=== PATIENT | male | born 1945 | race Caucasian/White ===

== ENCOUNTER → 2018-01-11 18:02 | Outpatient (CLI) | payer MEDICARE, OTHER, SELFPAY ==
--- NOTE | 2018-01-11 18:08 | DI.RAD.S_ITS ---
PROCEDURE: XR WRIST RT MIN 3V INDICATIONS: R wrist pain TECHNIQUE: 4 views of the wrist were acquired. COMPARISON: [facility], , XR HAND RT MIN 3V, 01/11/2018, 17:54. FINDINGS: Bones: No fractures or dislocations. There is mild degeneration of the 1st carpometacarpal joint. No suspicious bony lesions. Scaphoid view: The scaphoid appears intact. Soft tissues: No suspicious soft tissue calcifications. IMPRESSION: 1. No fracture or subluxation. 2. Mild degeneration of the 1st carpometacarpal joint. Dictated by: Justin Wilson M.D. on 01/11/2018 at 19:23 Approved by: Justin Wilson M.D. on 01/11/2018 at 19:33
--- NOTE | 2018-01-11 18:08 | DI.RAD.S_ITS ---
PROCEDURE: XR HAND RT MIN 3V INDICATIONS: r wrist pain TECHNIQUE: 3 views of the hand(s) acquired. COMPARISON: [facility], CR, XR WRIST RT MIN 3V, 01/11/2018, 17:54. FINDINGS: Bones: No fractures or dislocations. There is mild degeneration at the 1st carpometacarpal joint. Carpal bones are normally aligned. No suspicious bony lesions. Soft tissues: No suspicious soft tissue calcifications. IMPRESSION: 1. No fracture or subluxation. 2. Mild degeneration at the 1st carpometacarpal joint. Dictated by: Justin Wilson M.D. on 01/11/2018 at 19:33 Approved by: Justin Wilson M.D. on 01/11/2018 at 19:34
== END ==
PROVIDERS: Family Provider Family Medicine; PCP Family Medicine; Visit Provider Physician Assistant
DX: M25.531 Pain in right wrist (principal); M18.11 Unilateral primary osteoarthritis of first carpometacarpal joint, right hand
CPT/HCPCS: 73110; 73130

== ENCOUNTER → 2018-01-26 08:54 | Outpatient (CLI) | payer MEDICARE, OTHER, SELFPAY ==
[2018-01-26 09:36] LABS: Appearance Urine UA CLEAR; Bilirubin Urine UA NEGATIVE (NEGATIVE); Color Urine UA YELLOW; Glucose Urine UA NEGATIVE (Normal); Ketones Urine UA NEGATIVE (NEGATIVE); Leukocyte Esterase Urine UA NEGATIVE (NEGATIVE); Nitrite Urine UA NEGATIVE (Negative); Occult Blood Urine UA TRACE-LYSED (Negative); Protein Urine UA NEGATIVE (Negative); Specific Gravity Urine UA 1.025 (1.000-1.035); pH Urine UA 5.5 (4.5-8.0)
[2018-01-26 09:40] LABS: Add Manual Diff / Slide Review NO; Basophils Percent Auto 0.6 % (0-2); Eosinophils Percent Auto 4.6 % (2-4); Hemoglobin 13.6 g/dL (13.5-17.5); Lymphocytes Percent Auto 24.7 % (25-40); Mean Corpuscular HGB Conc 33.9 % (30-36); Mean Corpuscular Volume 91.3 fL (80-100); Neutrophils Absolute Auto 4500 /uL (3000-5900); Neutrophils Percent Auto 61.1 % (50-75); Platelet Count 273 X10^3/uL (150-400); Red Blood Cell Count 4.39 X10^6/uL (4.5-5.9); Red Cell Distribution Width 13.7 % (11.6-14.8); White Blood Cell Count 7.3 X10^3/uL (4.5-11.0)
[2018-01-26 09:57] LABS: Alanine Aminotransferase 18 IU/L (21-72); Albumin 4.2 g/dL (3.5-5.0); Albumin Globulin Ratio 1.2 (1.0-2.8); Alkaline Phosphatase 72 U/L (38-126); Aspartate Aminotransferase 15 IU/L (17-59); BUN Creatinine Ratio 28.6 (6-22); Bilirubin Total 0.4 mg/dL (0.2-1.3); Blood Urea Nitrogen 20 mg/dL (9-20); Calcium 9.1 mg/dL (8.4-10.2); Carbon Dioxide 28 mmol/L (22-32); Chloride 104 mmol/L (98-107); Cholesterol 187 mg/dL (140-199); Estimated Glomerular Filt Rate > 60.0 mL/min (>60); Globulin 3.4 g/dL (1.7-4.1); Glucose 97 mg/dL (80-110); HDL Cholesterol 38 mg/dL (40-60); HEMOLYSIS < 15 (0-50); LDL Cholesterol Calculated 133 mg/dL (<100); Potassium 4.3 mmol/L (3.4-5.1); Sodium 145 mmol/L (137-145); Total Protein 7.6 g/dL (6.3-8.2); Triglycerides 78 mg/dL (35-150)
[2018-01-26 10:18] LABS: Free T3, Triiodothyronine Free 3.28 pg/mL (2.77-5.27)
[2018-01-26 10:31] LABS: Thyroid Stimulating Hormone 1.67 uIU/mL (0.47-4.68)
== END ==
PROVIDERS: Family Provider Family Medicine; PCP Family Medicine; Visit Provider Family Medicine
DX: E03.9 Hypothyroidism, unspecified (principal); E78.5 Hyperlipidemia, unspecified
CPT/HCPCS: 36415; 80053; 80061; 81003; 84153; 84439; 84443; 84481; 85025

== ENCOUNTER → 2018-03-07 10:55 | Outpatient (CLI) | payer MEDICARE, OTHER, SELFPAY ==
[2018-02-23 15:38] VITALS: PULSE 55
[2018-03-07 12:25] LABS: Add Manual Diff / Slide Review NO; Basophils Percent Auto 0.3 % (0-2); Eosinophils Percent Auto 4.1 % (2-4); Hemoglobin 13.1 g/dL (13.5-17.5); Lymphocytes Percent Auto 15.6 % (25-40); Mean Corpuscular HGB Conc 33.6 % (30-36); Mean Corpuscular Hemoglobin 30.7 PG (26-34); Mean Corpuscular Volume 91.5 fL (80-100); Monocytes Percent Auto 7.7 % (3-14); Neutrophils Absolute Auto 6000 /uL (3000-5900); Neutrophils Percent Auto 72.3 % (50-75); Platelet Count 262 X10^3/uL (150-400); Red Blood Cell Count 4.27 X10^6/uL (4.5-5.9); Red Cell Distribution Width 13.4 % (11.6-14.8); White Blood Cell Count 8.2 X10^3/uL (4.5-11.0)
[2018-03-07 12:39] LABS: Uric Acid 4.5 mg/dL (3.5-8.5)
[2018-03-07 12:42] LABS: Rheumatoid Factor 53.9 IU/mL (<12.0)
[2018-03-07 13:08] LABS: Erythrocyte Sedimentation Rate 56 MM/HR (0-15)
[2018-03-08 13:45] LABS: Lyme SCREEN w/ Reflex IgG IgM < 0.90 (< 0.90)
[2018-03-15 13:41] LABS: ANA Screen POSITIVE (Negative); DNA Antibody Crithidia IFA NEGATIVE (Negative); Rheumatoid Factor 58 IU/mL (< 14); Sjogren Antiboday SS-A <1.0 NEG AI (<1.0 NEGATIVE); Sjogren Antiboday SS-B <1.0 NEG AI (<1.0 NEGATIVE); Sm Antibody <1.0 NEG AI (<1.0 NEGATIVE); Sm/RNP Antibody <1.0 NEG AI (<1.0 NEGATIVE)
== END ==
PROVIDERS: PCP Family Medicine; Visit Provider Family Medicine
DX: M25.50 Pain in unspecified joint (principal)
CPT/HCPCS: 36415; 84550; 85025; 85651; 86038; 86430; 86618

== ENCOUNTER 2018-04-21 07:30 | Outpatient (RCR) | payer MEDICARE, OTHER, SELFPAY ==
[2018-02-23 15:38] VITALS: BP 90/50; PULSE 55
--- NOTE | 2018-02-23 17:53 | PT.OIE ---
Current Diagnoses Carpal tunnel syndrome, unspecified upper limb (02/23/18) Carpal tunnel syndrome, bilateral upper limbs (02/23/18) Past Medical History (Last Updated 01/27/18 @ 16:46 by Agustina Albarran) CTS (carpal tunnel syndrome) (Chronic) Cataract (Chronic 2016) GI bleeding (Chronic 2016) Hearing loss (Chronic 2016) Hyperlipidemia (Chronic) Hypothyroidism (Chronic) Chicken pox (Resolved 1949) Colon polyps (Resolved 1999) Measles (Resolved 1951) Mumps (Resolved 1951) Skin cancer (Resolved 2012) Past Surgical History (Last Updated 01/27/18 @ 16:47 by Agustina Albarran) Anesthesia (Resolved) History of appendectomy (Resolved 2011) History of tonsillectomy (Resolved 1954) Provider Visit Care Team Role Provider Type Jessika Woodall DO Attending Provider Physician Family Provider Primary Care Provider Specialty: Family Practice Address: [address] [place] [address] Email: [email or web address] Physical Therapy Initial Evaluation PT-OP-A Visit Information Start: 02/23/18 10:30 Freq: Status: Active Protocol: Document 02/23/18 12:47 EA (Rec: 02/23/18 12:59 EA [id number]) Out-Patient Physical Therapy Visit Information Visit Information Visit Type Initial Evaluation Visit Start Time 07:30 Visit Stop Time 08:05 Total Visit Minutes 35 Visit Number 1 Evaluation Information Evaluation Date 02/23/18 PT-OP-B Current Condition Start: 02/23/18 10:30 Freq: Status: Active Protocol: Document 02/23/18 12:47 EA (Rec: 02/23/18 12:59 EA [id number]) Current Condition History of Current Condition Onset Date 2 months ago History of Current Condition Present c/o bilateral hands pain started two months ago with no known reason. Pt reports both wrists and finger joints initially was sharp with any gripping activities and currently achy pain; states there were times unable to open or close the hands due to weakness and pain. Patient also reports that pain to both shoulders with weakness folllowed after the hands dysfunction. Patient denies any swelling or increased in joint temperature . Pt mentioned that 2 months ago he lost 8 lbs of weight with no apparent reason. He stated that his doctor did not bother about it as his lab works seems to be normal during last blood chem analysis. Pt mentioned that he has been a smoker for more than 50 years with no pulmonary complication in the past months; he states that he is diagnosed with hypothyroidism and is under medication. Prior Treatments and Tests Ibuprofen Future Testing and Treatments Planned None identified. 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 Patient Reported Progress Worse Patient Questionnaires Oswestry Low Back Index Oswestry Score 48 Oswestry Impairment 40 to 59% Impaired (Score 40- 59) PT-OP-E Functional Tests Start: 02/23/18 10:30 Freq: Status: Active Protocol: Document 02/23/18 16:02 EA (Rec: 02/23/18 16:06 EA [id number]) Functional Tests Nateey's Scratch Test Action 1: The subject is instructed to touch the opposite shoulder with his/her hand. This motion checks Glenohumeral adduction, internal rotation , horizontal adduction and scapular protraction Action 2: The subject is instructed to place his/her arm overhead and reach behind the neck to touch his/her upper back. This motion checks Glenohumeral abduction, external rotation and scapular upward rotation and elevation. Action 3: The subject puts his/her hand on the lower back and reaches upward as far as possible. This motion checks glenohumeral adduction, internal rotation and scapular retraction with downward rotation Action 1- Left able Action 1- Right able Action 2- Left ear Action 2- Right ear Action 3- Left T10 Action 3- Right T10 PT-OP-F Manual Assessment Start: 02/23/18 10:30 Freq: Status: Active Protocol: Document 02/23/18 16:02 EA (Rec: 02/23/18 16:06 EA [id number]) Manual Assessments Soft Tissue Assessment Soft Tissue Mobility Assessment Tight ness to upper traps, scalenes, LS Joint Mobility Assessment Joint Mobility Assessment Normal joint mobility to both wrist and GH PT-OP-H Neuro Start: 02/23/18 10:30 Freq: Status: Active Protocol: Document 02/23/18 15:38 EA (Rec: 02/23/18 16:01 EA [id number]) Sensation Evaluation Gross Sensation Gross Sensation WNL Comments Summary Comments WFL in all sensory tests Deep Tendon Reflex & Clonus Assessment Deep Tendon Reflex Bilateral Tricep Deep Tendon Reflex 1+ Diminished Bilateral Bicep Deep Tendon Reflex 1+ Diminished Vital Signs Pulse 1 Pulse at Rest (bpm) 55 Pulse Assessment Method Palpation Blood Pressure Sitting Blood Pressure (90/60-120/80 mmHg) 90/50 L Blood Pressure Source Manual Cuff Left Upper Extremity PT-OP-J Posture/Palpation/Skin Start: 02/23/18 10:30 Freq: Status: Active Protocol: Document 02/23/18 15:38 EA (Rec: 02/23/18 16:01 EA [id number]) Posture Evaluation Position Standing Evaluation View ant/post Comments Posture Comments slight forward head with rounded shoulder Palpation Assessment Location One Palpation Location Bilateral entire shoulders Palpation Findings Soft Tissue Tightness Tenderness PT-OP-K Range of Motion Start: 02/23/18 10:30 Freq: Status: Active Protocol: Document 02/23/18 15:38 EA (Rec: 02/23/18 16:01 EA [id number]) Cervical Spine Range of Motion Cervical Spine Active Percentage Testing Position Sitting Flexion 90 Extension 65 Rotation Left 60 Rotation Right 65 Lateral Flexion Left 60 Lateral Flexion Right 60 ROM Limitations Soft Tissue Tightness Pain Comments Pain to left mid cervical with rotation to both sides. Shoulder Goniometric Range of Motion Shoulder Measured in Degrees Right Passive Shoulder ROM WFL Yes Left Passive Shoulder ROM WFL Yes Wrist Goniometric Range of Motion Wrist Measured in Degrees Right Wrist ROM WFL Yes Left Wrist ROM WFL Yes PT-OP-L Special Tests Start: 02/23/18 10:30 Freq: Status: Active Protocol: Document 02/23/18 15:38 EA (Rec: 02/23/18 16:01 EA [id number]) Special Tests Cervical Spine Special Tests Upper Limb Tension Test Test Results Negative bilateral Foraminal Compression Test Results negative bilateral Shoulder Special Tests Elevation Impingement Test Results negative Passive ER Rotator Cuff Test Results negative bilateral Neer Impingement Test Results negatibe bilat Other Special Tests Special Tests Phalen's and Reverse Phalen's test: bilateral negative. Capillary feeling test: both negative PT-OP-M Strength Start: 02/23/18 10:30 Freq: Status: Active Protocol: Document 02/23/18 15:38 EA (Rec: 02/23/18 16:01 EA [id number]) Cervical Spine Strength Cervical Spine Manual Muscle Testing Testing Position Sitting Flexion (C1-2) 4 Good Extension 4 Good Rotation Left 4 Good Rotation Right 4 Good Lateral Flexion Left (C3) 4 Good Lateral Flexion Right (C3) 4 Good Shoulder Strength Shoulder Manual Muscle Testing Right Extension 4- Good- Abduction (C5) 3 Fair Adduction 4- Good- External Rotation 3 Fair Internal Rotation 3 Fair Horizontal Abduction 3+ Fair+ Horizontal Adduction 3+ Fair+ Reason Not Measured Pain Left Flexion 3+ Fair+ Extension 4- Good- Abduction (C5) 3 Fair Adduction 4- Good- External Rotation 3 Fair Internal Rotation 3 Fair Horizontal Abduction 3+ Fair+ Horizontal Adduction 3+ Fair+ Reason Not Measured Pain Elbow/Forearm Strength Elbow and Forearm Manual Muscle Testing Right Reason Not Measured WFL Left Reason Not Measured WFL Wrist Strength Wrist Manual Muscle Testing Right Flexion (C7) 4+ Good+ Extension (C6) 4+ Good+ Ulnar Deviation 5 Normal Radial Deviation 4+ Good+ Left Flexion (C7) 5 Normal Extension (C6) 4+ Good+ Ulnar Deviation 4+ Good+ Radial Deviation 4+ Good+ Hand Scrap Kettle Tender/Pinch Strength Hand Dominance Hand Dominance Right Hand Strength Left Comments Dynamometer: (L 28) (R 24) PT-OP-Q Treatments Start: 02/23/18 10:30 Freq: Status: Active Protocol: Document 02/23/18 15:38 EA (Rec: 02/23/18 16:01 EA [id number]) Self-Care/Home Management Treatment Education Patient Education Home Exercise Program Joint Protection Posture PT-OP-T Assessment and Plan Start: 02/23/18 10:30 Freq: Status: Active Protocol: Document 02/23/18 15:38 TORY (Rec: 02/23/18 16:01 TROY [id number]) Physical Therapy Assessment Rehab Potential Rehabilitation Potential Fair Evaluation Complexity Number of Personal Factors/Comorbidities 3 or More Number of Body Systems Impaired 3 Clinical Presentation at Evaluation Evolving Impairments Impairments Activity Tolerance Functional Activities Pain ROM Soft Tissue Mobility Strength Goals Four Impairment Impaired result in in dynamometer hand vp product strength (Left =28; R=24) Safety Spec Goal (LTG) Patient will exhibit dynamometer hand vp product strength ( L= 30; R 34) LTG Duration 4 wks Three Impairment Reported pain of 5/10 with all UE's functional mobility Half-Way Goal (LTG) Patient will report 2/10 in all functional mobility of UE' s. LTG Duration 4 wks Two Impairment Quick Dash score of 32 Safety Spec Goal (LTG) Patient will have Quick Dash score of 12 LTG Duration 4 wks One Impairment Impaired shoulder and handgrip strength Half-Way Goal (LTG) Patient will increase shoulder strength by 1/2 grade and hand vp product to functional level to improve both UE's function. LTG Duration 4 wks Assessment Summary Assessment Pleasant 72 y/o male patient with a referring diagnosis of bilateral CTS. Today patient exhibits weakness to both shoulders with pain, multiple wrists and finger joint pain with weak handgrip ability. ROM assessment reveals no joint restriction but mainly with muscular pain and weakness. Carpal tunnel syndrome tests, capillary filling tests reveals negative. Cervical nerve root tests reveals negative as well. Sensory test to both UE is insignificant, DTR's to UE' s is difficult to elicit. At this time patient would benefit with skilled PT to improve shoulder and hand strength, to decrease pain symptoms, and education. However, for ultimate care, patient would benefit with further medical diagnostic to rule out systemic and other neuro conditions. Physical Therapy Plan Frequency and Duration Frequency of Treatment 2x/Week Duration of Treatment 8 wks Plan of Care Start Date 02/23/18 Plan of Care End Date 04/19/18 Therapeutic Interventions Therapeutic Interventions Home Exercise Program Joint Mobilizations Manual Therapy Neuromuscular Re-education Patient/Caregiver Education Self-Care/Home Management Soft Tissue Mobilization Taping Therapeutic Exercises Modalities Cold Pack/Ice Massage Electric Stimulation Hot Packs Paraffin Bath Other Referrals/Consults Referrals/Consults Recommended Referred back to physician for further medical diagnosis while ongoing with skilled PT. Next Visit Focus/Plan Next Note Type Treatment Note Next Visit Plan Light strengthening shoulder and hand exercises. E-stim to both shoulder and heat for pain. Gentle STM
--- NOTE | 2018-02-23 17:57 | PT.OPPOC ---
Current Diagnoses Carpal tunnel syndrome, unspecified upper limb (02/23/18) Carpal tunnel syndrome, bilateral upper limbs (02/23/18) Provider Visit Care Team Role Provider Type Jessika Woodall DO Attending Provider Physician Family Provider Primary Care Provider Specialty: Family Practice Address: [address] [place] [address], [id number] Email: [email or web address] Plan Of Care PT-OP-T Assessment and Plan Start: 02/23/18 10:30 Freq: Status: Active Protocol: Document 02/23/18 15:38 EA (Rec: 02/23/18 16:01 EA [id number]) Physical Therapy Assessment Rehab Potential Rehabilitation Potential Fair Evaluation Complexity Number of Personal Factors/Comorbidities 3 or More Number of Body Systems Impaired 3 Clinical Presentation at Evaluation Evolving Impairments Impairments Activity Tolerance Functional Activities Pain ROM Soft Tissue Mobility Strength Goals Four Impairment Impaired result in in dynamometer hand traveling engineer strength (Left =28; R=24) Correction Goal (LTG) Patient will exhibit dynamometer hand traveling engineer strength ( L= 30; R 34) LTG Duration 4 wks Three Impairment Reported pain of 5/10 with all UE's functional mobility Truckload Owner Operator Goal (LTG) Patient will report 2/10 in all functional mobility of UE' s. LTG Duration 4 wks Two Impairment Quick Dash score of 32 Truckload Owner Operator Goal (LTG) Patient will have Quick Dash score of 12 LTG Duration 4 wks One Impairment Impaired shoulder and handgrip strength Correction Goal (LTG) Patient will increase shoulder strength by 1/2 grade and hand traveling engineer to functional level to improve both UE's function. LTG Duration 4 wks Assessment Summary Assessment Pleasant 72 y/o male patient with a referring diagnosis of bilateral CTS. Today patient exhibits weakness to both shoulders with pain, multiple wrists and finger joint pain with weak handgrip ability. ROM assessment reveals no joint restriction but mainly with muscular pain and weakness. Carpal tunnel syndrome tests, capillary filling tests reveals negative. Cervical nerve root tests reveals negative as well. Sensory test to both UE is insignificant, DTR's to UE' s is difficult to elicit. At this time patient would benefit with skilled PT to improve shoulder and hand strength, to decrease pain symptoms, and education. However, for ultimate care, patient would benefit with further medical diagnostic procedures to rule out systemic disease and other neuro conditions Physical Therapy Plan Frequency and Duration Frequency of Treatment 2x/Week Duration of Treatment 8 wks Plan of Care Start Date 02/23/18 Plan of Care End Date 04/19/18 Therapeutic Interventions Therapeutic Interventions Home Exercise Program Joint Mobilizations Manual Therapy Neuromuscular Re-education Patient/Caregiver Education Self-Care/Home Management Soft Tissue Mobilization Taping Therapeutic Exercises Modalities Cold Pack/Ice Massage Electric Stimulation Hot Packs Paraffin Bath Other Referrals/Consults Referrals/Consults Recommended Referred back to physician for further medical diagnosis while ongoing with skilled PT. Next Visit Focus/Plan Next Note Type Treatment Note Next Visit Plan Light strengthening shoulder and hand exercises. E-stim to both shoulder and heat for pain. Gentle STM Plan of Care Dates Plan of Care Start Date 02/23/18 Plan of Care End Date 04/19/18 Please Sign and Return: I have reviewed this Plan of Care and certify that the skilled therapy services above are required to meet the patient?s needs. Physician Signature Date Printed Name and Credentials Clinical Instructor Signature Printed Name and Credentials
--- NOTE | 2018-03-01 10:30 | PT.OTN ---
Current Diagnoses Carpal tunnel syndrome, unspecified upper limb (03/01/18) Carpal tunnel syndrome, bilateral upper limbs (03/01/18) Physical Therapy Treatment Note PT-OP-A Visit Information Start: 02/23/18 10:30 Freq: Status: Active Protocol: Document 03/01/18 07:38 EA (Rec: 03/01/18 08:26 EA [id number]) Out-Patient Physical Therapy Visit Information Visit Information Visit Type Treatment Note Visit Start Time 07:30 Visit Stop Time 08:10 Total Visit Minutes 40 PT-OP-B Current Condition Start: 02/23/18 10:30 Freq: Status: Active Protocol: Document 02/23/18 12:47 EA (Rec: 02/23/18 12:59 EA [id number]) Current Condition History of Current Condition Onset Date 2 months ago History of Current Condition Present c/o bilateral hands pain started two months ago with no known reason. Pt reports both wrists and finger joints initially was sharp with any gripping activities and currently achy pain; states there were times unable to open or close the hands due to weakness and pain. Patient also reports that pain to both shoulders with weakness folllowed after the hands dysfunction. Patient denies any swelling or increased in joint temperature . Pt mentioned that 2 months ago he lost 8 lbs of weight with no apparent reason. He stated that his doctor did not bother about it as his lab works seems to be normal during last blood chem analysis. Pt mentioned that he has been a smoker for more than 50 years with no pulmonary complication in the past months; he states that he is diagnosed with hypothyroidism and is under medication. Prior Treatments and Tests Ibuprofen Future Testing and Treatments Planned None identified. 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 Functional Limitations- Mobility/Gait indep Functional Limitations- Work/School Unable to comeback to work due to pain on both shoulders and hands PT-OP-C Subjective Start: 02/23/18 10:30 Freq: Status: Active Protocol: Document 03/01/18 07:38 EA (Rec: 03/01/18 08:26 EA [id number]) OP-PT Subjective Patient Comments Patient Comments Pt reports both shoulders are still aching and hands are not bothering him much; states he will be seeing his physician next Wednesday for further checkup Patient Reported Progress Same PT-OP-E Functional Tests Start: 02/23/18 10:30 Freq: Status: Active Protocol: Document 02/23/18 16:02 EA (Rec: 02/23/18 16:06 EA [id number]) Functional Tests Apley's Scratch Test Action 1: The subject is instructed to touch the opposite shoulder with his/her hand. This motion checks Glenohumeral adduction, internal rotation , horizontal adduction and scapular protraction Action 2: The subject is instructed to place his/her arm overhead and reach behind the neck to touch his/her upper back. This motion checks Glenohumeral abduction, external rotation and scapular upward rotation and elevation. Action 3: The subject puts his/her hand on the lower back and reaches upward as far as possible. This motion checks glenohumeral adduction, internal rotation and scapular retraction with downward rotation Action 1- Left able Action 1- Right able Action 2- Left ear Action 2- Right ear Action 3- Left T10 Action 3- Right T10 PT-OP-F Manual Assessment Start: 02/23/18 10:30 Freq: Status: Active Protocol: Document 02/23/18 16:02 EA (Rec: 02/23/18 16:06 EA [id number]) Manual Assessments Soft Tissue Assessment Soft Tissue Mobility Assessment Tight ness to upper traps, scalenes, LS Joint Mobility Assessment Joint Mobility Assessment Normal joint mobility to both wrist and GH PT-OP-H Neuro Start: 02/23/18 10:30 Freq: Status: Active Protocol: Document 02/23/18 15:38 EA (Rec: 02/23/18 16:01 EA [id number]) Sensation Evaluation Gross Sensation Gross Sensation WNL Comments Summary Comments WFL in all sensory tests Deep Tendon Reflex & Clonus Assessment Deep Tendon Reflex Bilateral Tricep Deep Tendon Reflex 1+ Diminished Bilateral Bicep Deep Tendon Reflex 1+ Diminished Vital Signs Pulse 1 Pulse at Rest (bpm) 55 Pulse Assessment Method Palpation Blood Pressure Sitting Blood Pressure (90/60-120/80 mmHg) 90/50 L Blood Pressure Source Manual Cuff Left Upper Extremity PT-OP-J Posture/Palpation/Skin Start: 02/23/18 10:30 Freq: Status: Active Protocol: Document 02/23/18 15:38 EA (Rec: 02/23/18 16:01 EA [id number]) Posture Evaluation Position Standing Evaluation View ant/post Comments Posture Comments slight forward head with rounded shoulder Palpation Assessment Location One Palpation Location Bilateral entire shoulders Palpation Findings Soft Tissue Tightness Tenderness PT-OP-K Range of Motion Start: 02/23/18 10:30 Freq: Status: Active Protocol: Document 02/23/18 15:38 EA (Rec: 02/23/18 16:01 EA [id number]) Cervical Spine Range of Motion Cervical Spine Active Percentage Testing Position Sitting Flexion 90 Extension 65 Rotation Left 60 Rotation Right 65 Lateral Flexion Left 60 Lateral Flexion Right 60 ROM Limitations Soft Tissue Tightness Pain Comments Pain to left mid cervical with rotation to both sides. Shoulder Goniometric Range of Motion Shoulder Measured in Degrees Right Passive Shoulder ROM WFL Yes Left Passive Shoulder ROM WFL Yes Wrist Goniometric Range of Motion Wrist Measured in Degrees Right Wrist ROM WFL Yes Left Wrist ROM WFL Yes PT-OP-L Special Tests Start: 02/23/18 10:30 Freq: Status: Active Protocol: Document 02/23/18 15:38 EA (Rec: 02/23/18 16:01 EA [id number]) Special Tests Cervical Spine Special Tests Upper Limb Tension Test Test Results Negative bilateral Foraminal Compression Test Results negative bilateral Shoulder Special Tests Elevation Impingement Test Results negative Passive ER Rotator Cuff Test Results negative bilateral Neer Impingement Test Results negatibe bilat Other Special Tests Special Tests Phalen's and Reverse Phalen's test: bilateral negative. Capillary feeling test: both negative PT-OP-M Strength Start: 02/23/18 10:30 Freq: Status: Active Protocol: Document 02/23/18 15:38 EA (Rec: 02/23/18 16:01 EA [id number]) Cervical Spine Strength Cervical Spine Manual Muscle Testing Testing Position Sitting Flexion (C1-2) 4 Good Extension 4 Good Rotation Left 4 Good Rotation Right 4 Good Lateral Flexion Left (C3) 4 Good Lateral Flexion Right (C3) 4 Good Shoulder Strength Shoulder Manual Muscle Testing Right Extension 4- Good- Abduction (C5) 3 Fair Adduction 4- Good- External Rotation 3 Fair Internal Rotation 3 Fair Horizontal Abduction 3+ Fair+ Horizontal Adduction 3+ Fair+ Reason Not Measured Pain Left Flexion 3+ Fair+ Extension 4- Good- Abduction (C5) 3 Fair Adduction 4- Good- External Rotation 3 Fair Internal Rotation 3 Fair Horizontal Abduction 3+ Fair+ Horizontal Adduction 3+ Fair+ Reason Not Measured Pain Elbow/Forearm Strength Elbow and Forearm Manual Muscle Testing Right Reason Not Measured WFL Left Reason Not Measured WFL Wrist Strength Wrist Manual Muscle Testing Right Flexion (C7) 4+ Good+ Extension (C6) 4+ Good+ Ulnar Deviation 5 Normal Radial Deviation 4+ Good+ Left Flexion (C7) 5 Normal Extension (C6) 4+ Good+ Ulnar Deviation 4+ Good+ Radial Deviation 4+ Good+ Hand Vertical Borer/Pinch Strength Hand Dominance Hand Dominance Right Hand Strength Left Comments Dynamometer: (L 28) (R 24) PT-OP-Q Treatments Start: 02/23/18 10:30 Freq: Status: Active Protocol: Document 03/01/18 07:38 EA (Rec: 03/01/18 08:26 EA [id number]) Cardio Equipment Upper Body Ergometer (UBE) Duration (Minutes) 5 Height 6 Therapeutic Exercises Supine Exercises 3 Supine Exercise Name D1,D2 Side bilateral Resistance Manual Reps/Minutes x 10 reps Comments Right shoulder pain free range 2 Supine Exercise Name Shoulder Flexion AROM Side bilateral Reps/Minutes x 15 reps x 2 1 Supine Exercise Name AROM; shoulder horiz ABD Side bilateral Reps/Minutes x 15 reps Sitting Exercises 3 Sitting Exercise Name Shoulder chilango: flexion/ABD Side bilateral Reps/Minutes x 15 reps 2 Sitting Exercise Name Shoulder flexion Side bilateral Reps/Minutes x 10 reps 1 Sitting Exercise Name Shoulder ABD pain free Side bilateral Resistance 1# Reps/Minutes x 10 reps Standing Exercises 4 Standing Exercise Name Wall slider: shoulder flexion Side bilateral Reps/Minutes x 15 reps 3 Standing Exercise Name Row Side bilateral Reps/Minutes x 10 reps x 2 2 Standing Exercise Name Triceps ext Side bilateral Resistance Lv 2 Reps/Minutes x 10 reps 1 Standing Exercise Name Shoulder Ext Side bilateral Resistance Lv1 Reps/Minutes x 10 reps PT-OP-R Modalities Start: 02/23/18 10:30 Freq: Status: Active Protocol: Document 03/01/18 08:59 EA (Rec: 03/01/18 09:00 EA [id number]) Electric Stimulation Electric Stimulation Interferential Current (IFC) Body Location Both shoulders Intensity 15 Patient Position Hooklying Combined With Heat/Cold Hot Pack PT-OP-T Assessment and Plan Start: 02/23/18 10:30 Freq: Status: Active Protocol: Document 03/01/18 07:38 EA (Rec: 03/01/18 08:26 EA [id number]) Physical Therapy Assessment Assessment Summary Assessment Pt requires cues during standing shoulder exercises as compensatory strategies is evident. Physical Therapy Plan Next Visit Focus/Plan Next Note Type Treatment Note Next Visit Plan Provide HEP images
--- NOTE | 2018-03-03 12:11 | PT.OTN ---
Current Diagnoses Carpal tunnel syndrome, unspecified upper limb (03/03/18) Carpal tunnel syndrome, bilateral upper limbs (03/03/18) Physical Therapy Treatment Note PT-OP-A Visit Information Start: 02/23/18 10:30 Freq: Status: Active Protocol: Document 03/03/18 11:13 EA (Rec: 03/03/18 11:16 EA [id number]) Out-Patient Physical Therapy Visit Information Visit Information Visit Type Treatment Note Visit Start Time 10:30 Visit Stop Time 12:15 Total Visit Minutes 40 PT-OP-B Current Condition Start: 02/23/18 10:30 Freq: Status: Active Protocol: Document 02/23/18 12:47 EA (Rec: 02/23/18 12:59 EA [id number]) Current Condition History of Current Condition Onset Date 2 months ago History of Current Condition Present c/o bilateral hands pain started two months ago with no known reason. Pt reports both wrists and finger joints initially was sharp with any gripping activities and currently achy pain; states there were times unable to open or close the hands due to weakness and pain. Patient also reports that pain to both shoulders with weakness folllowed after the hands dysfunction. Patient denies any swelling or increased in joint temperature . Pt mentioned that 2 months ago he lost 8 lbs of weight with no apparent reason. He stated that his doctor did not bother about it as his lab works seems to be normal during last blood chem analysis. Pt mentioned that he has been a smoker for more than 50 years with no pulmonary complication in the past months; he states that he is diagnosed with hypothyroidism and is under medication. Prior Treatments and Tests Ibuprofen Future Testing and Treatments Planned None identified. 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 Functional Limitations- Mobility/Gait indep Functional Limitations- Work/School Unable to comeback to work due to pain on both shoulders and hands PT-OP-C Subjective Start: 02/23/18 10:30 Freq: Status: Active Protocol: Document 03/03/18 11:13 EA (Rec: 03/03/18 11:16 EA [id number]) OP-PT Subjective Patient Comments Patient Comments Pt reports unable to perform HEP due to shoulder; states left hand is quite swelled today. Pt mentioned that he will be seeing a child study team director next week. Patient Reported Progress Same Patient Questionnaires Oswestry Low Back Index Oswestry Score 48 Oswestry Impairment 40 to 59% Impaired (Score 40- 59) PT-OP-E Functional Tests Start: 02/23/18 10:30 Freq: Status: Active Protocol: Document 02/23/18 16:02 EA (Rec: 02/23/18 16:06 EA [id number]) Functional Tests Apley's Scratch Test Action 1: The subject is instructed to touch the opposite shoulder with his/her hand. This motion checks Glenohumeral adduction, internal rotation , horizontal adduction and scapular protraction Action 2: The subject is instructed to place his/her arm overhead and reach behind the neck to touch his/her upper back. This motion checks Glenohumeral abduction, external rotation and scapular upward rotation and elevation. Action 3: The subject puts his/her hand on the lower back and reaches upward as far as possible. This motion checks glenohumeral adduction, internal rotation and scapular retraction with downward rotation Action 1- Left able Action 1- Right able Action 2- Left ear Action 2- Right ear Action 3- Left T10 Action 3- Right T10 PT-OP-F Manual Assessment Start: 02/23/18 10:30 Freq: Status: Active Protocol: Document 02/23/18 16:02 EA (Rec: 02/23/18 16:06 EA [id number]) Manual Assessments Soft Tissue Assessment Soft Tissue Mobility Assessment Tight ness to upper traps, scalenes, LS Joint Mobility Assessment Joint Mobility Assessment Normal joint mobility to both wrist and GH PT-OP-H Neuro Start: 02/23/18 10:30 Freq: Status: Active Protocol: Document 02/23/18 15:38 EA (Rec: 02/23/18 16:01 EA [id number]) Sensation Evaluation Gross Sensation Gross Sensation WNL Comments Summary Comments WFL in all sensory tests Deep Tendon Reflex & Clonus Assessment Deep Tendon Reflex Bilateral Tricep Deep Tendon Reflex 1+ Diminished Bilateral Bicep Deep Tendon Reflex 1+ Diminished Vital Signs Pulse 1 Pulse at Rest (bpm) 55 Pulse Assessment Method Palpation Blood Pressure Sitting Blood Pressure (90/60-120/80 mmHg) 90/50 L Blood Pressure Source Manual Cuff Left Upper Extremity PT-OP-J Posture/Palpation/Skin Start: 02/23/18 10:30 Freq: Status: Active Protocol: Document 02/23/18 15:38 EA (Rec: 02/23/18 16:01 EA [id number]) Posture Evaluation Position Standing Evaluation View ant/post Comments Posture Comments slight forward head with rounded shoulder Palpation Assessment Location One Palpation Location Bilateral entire shoulders Palpation Findings Soft Tissue Tightness Tenderness PT-OP-K Range of Motion Start: 02/23/18 10:30 Freq: Status: Active Protocol: Document 02/23/18 15:38 EA (Rec: 02/23/18 16:01 EA [id number]) Cervical Spine Range of Motion Cervical Spine Active Percentage Testing Position Sitting Flexion 90 Extension 65 Rotation Left 60 Rotation Right 65 Lateral Flexion Left 60 Lateral Flexion Right 60 ROM Limitations Soft Tissue Tightness Pain Comments Pain to left mid cervical with rotation to both sides. Shoulder Goniometric Range of Motion Shoulder Measured in Degrees Right Passive Shoulder ROM WFL Yes Left Passive Shoulder ROM WFL Yes Wrist Goniometric Range of Motion Wrist Measured in Degrees Right Wrist ROM WFL Yes Left Wrist ROM WFL Yes PT-OP-L Special Tests Start: 02/23/18 10:30 Freq: Status: Active Protocol: Document 02/23/18 15:38 EA (Rec: 02/23/18 16:01 EA [id number]) Special Tests Cervical Spine Special Tests Upper Limb Tension Test Test Results Negative bilateral Foraminal Compression Test Results negative bilateral Shoulder Special Tests Elevation Impingement Test Results negative Passive ER Rotator Cuff Test Results negative bilateral Neer Impingement Test Results negatibe bilat Other Special Tests Special Tests Phalen's and Reverse Phalen's test: bilateral negative. Capillary feeling test: both negative PT-OP-M Strength Start: 02/23/18 10:30 Freq: Status: Active Protocol: Document 02/23/18 15:38 EA (Rec: 02/23/18 16:01 EA [id number]) Cervical Spine Strength Cervical Spine Manual Muscle Testing Testing Position Sitting Flexion (C1-2) 4 Good Extension 4 Good Rotation Left 4 Good Rotation Right 4 Good Lateral Flexion Left (C3) 4 Good Lateral Flexion Right (C3) 4 Good Shoulder Strength Shoulder Manual Muscle Testing Right Extension 4- Good- Abduction (C5) 3 Fair Adduction 4- Good- External Rotation 3 Fair Internal Rotation 3 Fair Horizontal Abduction 3+ Fair+ Horizontal Adduction 3+ Fair+ Reason Not Measured Pain Left Flexion 3+ Fair+ Extension 4- Good- Abduction (C5) 3 Fair Adduction 4- Good- External Rotation 3 Fair Internal Rotation 3 Fair Horizontal Abduction 3+ Fair+ Horizontal Adduction 3+ Fair+ Reason Not Measured Pain Elbow/Forearm Strength Elbow and Forearm Manual Muscle Testing Right Reason Not Measured WFL Left Reason Not Measured WFL Wrist Strength Wrist Manual Muscle Testing Right Flexion (C7) 4+ Good+ Extension (C6) 4+ Good+ Ulnar Deviation 5 Normal Radial Deviation 4+ Good+ Left Flexion (C7) 5 Normal Extension (C6) 4+ Good+ Ulnar Deviation 4+ Good+ Radial Deviation 4+ Good+ Hand Copy Reader/Pinch Strength Hand Dominance Hand Dominance Right Hand Strength Left Comments Dynamometer: (L 28) (R 24) PT-OP-Q Treatments Start: 02/23/18 10:30 Freq: Status: Active Protocol: Document 03/03/18 11:13 EA (Rec: 03/03/18 11:16 EA [id number]) Cardio Equipment Upper Body Ergometer (UBE) Duration (Minutes) 5 Height 6 Therapeutic Exercises Supine Exercises 3 Supine Exercise Name D1,D2 Side bilateral Resistance Manual Reps/Minutes x 10 reps Comments Right shoulder pain free range 2 Supine Exercise Name Shoulder Flexion AROM Side bilateral Reps/Minutes x 15 reps x 2 1 Supine Exercise Name AROM; shoulder horiz ABD Side bilateral Reps/Minutes x 15 reps Sitting Exercises 3 Sitting Exercise Name Shoulder chilango: flexion/ABD Side bilateral Reps/Minutes x 15 reps 2 Sitting Exercise Name Shoulder flexion Side bilateral Reps/Minutes x 10 reps 1 Sitting Exercise Name Shoulder ABD pain free Side bilateral Resistance 1# Reps/Minutes x 10 reps Standing Exercises 4 Standing Exercise Name Wall slider: shoulder flexion Side bilateral Reps/Minutes x 15 reps 3 Standing Exercise Name Row Side bilateral Reps/Minutes x 10 reps x 2 2 Standing Exercise Name Triceps ext Side bilateral Resistance Lv 2 Reps/Minutes x 10 reps 1 Standing Exercise Name Shoulder Ext Side bilateral Resistance Lv1 Reps/Minutes x 10 reps PT-OP-R Modalities Start: 02/23/18 10:30 Freq: Status: Active Protocol: Document 03/03/18 11:13 EA (Rec: 03/03/18 11:16 EA [id number]) Electric Stimulation Electric Stimulation Interferential Current (IFC) Body Location Both shoulders Intensity 15 Patient Position Hooklying Combined With Heat/Cold Hot Pack PT-OP-T Assessment and Plan Start: 02/23/18 10:30 Freq: Status: Active Protocol: Document 03/03/18 11:13 EA (Rec: 03/03/18 11:16 EA [id number]) Physical Therapy Assessment Rehab Potential Rehabilitation Potential Fair Goals Four Impairment Impaired result in in dynamometer hand surgical technology instructor strength (Left =28; R=24) Jail Goal (LTG) Patient will exhibit dynamometer hand surgical technology instructor strength ( L= 30; R 34) LTG Duration 4 wks Three Impairment Reported pain of 5/10 with all UE's functional mobility Jail Goal (LTG) Patient will report 2/10 in all functional mobility of UE' s. LTG Duration 4 wks Two Impairment Quick Dash score of 32 Jail Goal (LTG) Patient will have Quick Dash score of 12 LTG Duration 4 wks One Impairment Impaired shoulder and handgrip strength Jail Goal (LTG) Patient will increase shoulder strength by 1/2 grade and hand surgical technology instructor to functional level to improve both UE's function. LTG Duration 4 wks Assessment Summary Assessment Tolerated treatment well. more ROM noted at this time with less discomfort. Physical Therapy Plan Frequency and Duration Frequency of Treatment 2x/Week Duration of Treatment 8 wks Plan of Care Start Date 02/23/18 Plan of Care End Date 04/19/18 Therapeutic Interventions Therapeutic Interventions Home Exercise Program Joint Mobilizations Manual Therapy Neuromuscular Re-education Patient/Caregiver Education Self-Care/Home Management Soft Tissue Mobilization Taping Therapeutic Exercises Modalities Cold Pack/Ice Massage Electric Stimulation Hot Packs Paraffin Bath Next Visit Focus/Plan Next Note Type Treatment Note Next Visit Plan Provide HEP images
--- NOTE | 2018-03-08 10:37 | PT.OTN ---
Current Diagnoses Carpal tunnel syndrome, unspecified upper limb (03/08/18) Carpal tunnel syndrome, bilateral upper limbs (03/08/18) Physical Therapy Treatment Note PT-OP-A Visit Information Start: 02/23/18 10:30 Freq: Status: Active Protocol: Document 03/08/18 08:20 EA (Rec: 03/08/18 08:26 EA [id number]) Out-Patient Physical Therapy Visit Information Visit Information Visit Type Treatment Note Visit Start Time 07:30 Visit Stop Time 08:15 Total Visit Minutes 45 PT-OP-B Current Condition Start: 02/23/18 10:30 Freq: Status: Active Protocol: Document 02/23/18 12:47 EA (Rec: 02/23/18 12:59 EA [id number]) Current Condition History of Current Condition Onset Date 2 months ago History of Current Condition Present c/o bilateral hands pain started two months ago with no known reason. Pt reports both wrists and finger joints initially was sharp with any gripping activities and currently achy pain; states there were times unable to open or close the hands due to weakness and pain. Patient also reports that pain to both shoulders with weakness folllowed after the hands dysfunction. Patient denies any swelling or increased in joint temperature . Pt mentioned that 2 months ago he lost 8 lbs of weight with no apparent reason. He stated that his doctor did not bother about it as his lab works seems to be normal during last blood chem analysis. Pt mentioned that he has been a smoker for more than 50 years with no pulmonary complication in the past months; he states that he is diagnosed with hypothyroidism and is under medication. Prior Treatments and Tests Ibuprofen Future Testing and Treatments Planned None identified. 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 Functional Limitations- Mobility/Gait indep Functional Limitations- Work/School Unable to comeback to work due to pain on both shoulders and hands PT-OP-C Subjective Start: 02/23/18 10:30 Freq: Status: Active Protocol: Document 03/08/18 08:20 EA (Rec: 03/08/18 08:26 EA [id number]) OP-PT Subjective Patient Comments Patient Comments Pt reports he had a tests for rhuematism yesterday and resulst would be next week. Patient Reported Progress Improving PT-OP-E Functional Tests Start: 02/23/18 10:30 Freq: Status: Active Protocol: Document 02/23/18 16:02 EA (Rec: 02/23/18 16:06 EA [id number]) Functional Tests Apley's Scratch Test Action 1: The subject is instructed to touch the opposite shoulder with his/her hand. This motion checks Glenohumeral adduction, internal rotation , horizontal adduction and scapular protraction Action 2: The subject is instructed to place his/her arm overhead and reach behind the neck to touch his/her upper back. This motion checks Glenohumeral abduction, external rotation and scapular upward rotation and elevation. Action 3: The subject puts his/her hand on the lower back and reaches upward as far as possible. This motion checks glenohumeral adduction, internal rotation and scapular retraction with downward rotation Action 1- Left able Action 1- Right able Action 2- Left ear Action 2- Right ear Action 3- Left T10 Action 3- Right T10 PT-OP-F Manual Assessment Start: 02/23/18 10:30 Freq: Status: Active Protocol: Document 02/23/18 16:02 EA (Rec: 02/23/18 16:06 EA [id number]) Manual Assessments Soft Tissue Assessment Soft Tissue Mobility Assessment Tight ness to upper traps, scalenes, LS Joint Mobility Assessment Joint Mobility Assessment Normal joint mobility to both wrist and GH PT-OP-H Neuro Start: 02/23/18 10:30 Freq: Status: Active Protocol: Document 02/23/18 15:38 EA (Rec: 02/23/18 16:01 EA [id number]) Sensation Evaluation Gross Sensation Gross Sensation WNL Comments Summary Comments WFL in all sensory tests Deep Tendon Reflex & Clonus Assessment Deep Tendon Reflex Bilateral Tricep Deep Tendon Reflex 1+ Diminished Bilateral Bicep Deep Tendon Reflex 1+ Diminished Vital Signs Pulse 1 Pulse at Rest (bpm) 55 Pulse Assessment Method Palpation Blood Pressure Sitting Blood Pressure (90/60-120/80 mmHg) 90/50 L Blood Pressure Source Manual Cuff Left Upper Extremity PT-OP-J Posture/Palpation/Skin Start: 02/23/18 10:30 Freq: Status: Active Protocol: Document 02/23/18 15:38 EA (Rec: 02/23/18 16:01 EA [id number]) Posture Evaluation Position Standing Evaluation View ant/post Comments Posture Comments slight forward head with rounded shoulder Palpation Assessment Location One Palpation Location Bilateral entire shoulders Palpation Findings Soft Tissue Tightness Tenderness PT-OP-K Range of Motion Start: 02/23/18 10:30 Freq: Status: Active Protocol: Document 02/23/18 15:38 EA (Rec: 02/23/18 16:01 EA [id number]) Cervical Spine Range of Motion Cervical Spine Active Percentage Testing Position Sitting Flexion 90 Extension 65 Rotation Left 60 Rotation Right 65 Lateral Flexion Left 60 Lateral Flexion Right 60 ROM Limitations Soft Tissue Tightness Pain Comments Pain to left mid cervical with rotation to both sides. Shoulder Goniometric Range of Motion Shoulder Measured in Degrees Right Passive Shoulder ROM WFL Yes Left Passive Shoulder ROM WFL Yes Wrist Goniometric Range of Motion Wrist Measured in Degrees Right Wrist ROM WFL Yes Left Wrist ROM WFL Yes PT-OP-L Special Tests Start: 02/23/18 10:30 Freq: Status: Active Protocol: Document 02/23/18 15:38 EA (Rec: 02/23/18 16:01 EA [id number]) Special Tests Cervical Spine Special Tests Upper Limb Tension Test Test Results Negative bilateral Foraminal Compression Test Results negative bilateral Shoulder Special Tests Elevation Impingement Test Results negative Passive ER Rotator Cuff Test Results negative bilateral Neer Impingement Test Results negatibe bilat Other Special Tests Special Tests Phalen's and Reverse Phalen's test: bilateral negative. Capillary feeling test: both negative PT-OP-M Strength Start: 02/23/18 10:30 Freq: Status: Active Protocol: Document 02/23/18 15:38 EA (Rec: 02/23/18 16:01 EA [id number]) Cervical Spine Strength Cervical Spine Manual Muscle Testing Testing Position Sitting Flexion (C1-2) 4 Good Extension 4 Good Rotation Left 4 Good Rotation Right 4 Good Lateral Flexion Left (C3) 4 Good Lateral Flexion Right (C3) 4 Good Shoulder Strength Shoulder Manual Muscle Testing Right Extension 4- Good- Abduction (C5) 3 Fair Adduction 4- Good- External Rotation 3 Fair Internal Rotation 3 Fair Horizontal Abduction 3+ Fair+ Horizontal Adduction 3+ Fair+ Reason Not Measured Pain Left Flexion 3+ Fair+ Extension 4- Good- Abduction (C5) 3 Fair Adduction 4- Good- External Rotation 3 Fair Internal Rotation 3 Fair Horizontal Abduction 3+ Fair+ Horizontal Adduction 3+ Fair+ Reason Not Measured Pain Elbow/Forearm Strength Elbow and Forearm Manual Muscle Testing Right Reason Not Measured WFL Left Reason Not Measured WFL Wrist Strength Wrist Manual Muscle Testing Right Flexion (C7) 4+ Good+ Extension (C6) 4+ Good+ Ulnar Deviation 5 Normal Radial Deviation 4+ Good+ Left Flexion (C7) 5 Normal Extension (C6) 4+ Good+ Ulnar Deviation 4+ Good+ Radial Deviation 4+ Good+ Hand Block Handler/Pinch Strength Hand Dominance Hand Dominance Right Hand Strength Left Comments Dynamometer: (L 28) (R 24) PT-OP-Q Treatments Start: 02/23/18 10:30 Freq: Status: Active Protocol: Document 03/08/18 08:20 EA (Rec: 03/08/18 08:26 EA [id number]) Cardio Equipment Upper Body Ergometer (UBE) Duration (Minutes) 5 Height 6 Gym Equipment Cable Column (Body Solid) Other- 1 Details Adjustable cable: Pull down, mid row, low row Resistance 1-3 plates Reps/Time x 12 reps x 2 sets each level Therapeutic Exercises Supine Exercises 3 Supine Exercise Name D1,D2 Side bilateral Resistance Manual Reps/Minutes x 10 reps Comments Right shoulder pain free range 2 Supine Exercise Name Shoulder Flexion AROM Side bilateral Reps/Minutes x 15 reps x 2 1 Supine Exercise Name AROM; shoulder horiz ABD Side bilateral Reps/Minutes x 15 reps Sitting Exercises 3 Sitting Exercise Name Shoulder chilango: flexion/ABD Side bilateral Reps/Minutes x 15 reps 2 Sitting Exercise Name Shoulder flexion Side bilateral Reps/Minutes x 10 reps 1 Sitting Exercise Name Shoulder ABD pain free Side bilateral Resistance 1# Reps/Minutes x 10 reps Standing Exercises 2 Standing Exercise Name Triceps ext Side bilateral Resistance Lv 2 Reps/Minutes x 10 reps 1 Standing Exercise Name Shoulder Ext Side bilateral Resistance Lv1 Reps/Minutes x 10 reps PT-OP-R Modalities Start: 02/23/18 10:30 Freq: Status: Active Protocol: Document 03/08/18 08:20 EA (Rec: 03/08/18 08:26 EA [id number]) Electric Stimulation Electric Stimulation Interferential Current (IFC) Body Location Both shoulders Intensity 15 Patient Position Hooklying Combined With Heat/Cold Hot Pack PT-OP-T Assessment and Plan Start: 02/23/18 10:30 Freq: Status: Active Protocol: Document 03/08/18 08:20 EA (Rec: 03/08/18 08:26 EA [id number]) Physical Therapy Assessment Assessment Summary Assessment Patien tolerated treatment but requires shoulder ROM for pain free range with all shoulder exercises. Physical Therapy Plan Next Visit Focus/Plan Next Note Type Treatment Note Next Visit Plan Progress as able.
--- NOTE | 2018-03-10 12:54 | PT.OTN ---
Current Diagnoses Carpal tunnel syndrome, unspecified upper limb (03/10/18) Carpal tunnel syndrome, bilateral upper limbs (03/10/18) Physical Therapy Treatment Note PT-OP-A Visit Information Start: 02/23/18 10:30 Freq: Status: Active Protocol: Document 03/10/18 10:29 EA (Rec: 03/10/18 10:36 EA [id number]) Out-Patient Physical Therapy Visit Information Visit Information Visit Type Treatment Note Visit Start Time 09:45 Visit Stop Time 10:40 Total Visit Minutes 53 PT-OP-B Current Condition Start: 02/23/18 10:30 Freq: Status: Active Protocol: Document 02/23/18 12:47 EA (Rec: 02/23/18 12:59 EA [id number]) Current Condition History of Current Condition Onset Date 2 months ago History of Current Condition Present c/o bilateral hands pain started two months ago with no known reason. Pt reports both wrists and finger joints initially was sharp with any gripping activities and currently achy pain; states there were times unable to open or close the hands due to weakness and pain. Patient also reports that pain to both shoulders with weakness folllowed after the hands dysfunction. Patient denies any swelling or increased in joint temperature . Pt mentioned that 2 months ago he lost 8 lbs of weight with no apparent reason. He stated that his doctor did not bother about it as his lab works seems to be normal during last blood chem analysis. Pt mentioned that he has been a smoker for more than 50 years with no pulmonary complication in the past months; he states that he is diagnosed with hypothyroidism and is under medication. Prior Treatments and Tests Ibuprofen Future Testing and Treatments Planned None identified. 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 Functional Limitations- Mobility/Gait indep Functional Limitations- Work/School Unable to comeback to work due to pain on both shoulders and hands PT-OP-C Subjective Start: 02/23/18 10:30 Freq: Status: Active Protocol: Document 03/10/18 10:29 EA (Rec: 03/10/18 10:36 EA [id number]) OP-PT Subjective Patient Comments Patient Comments Pt reports he is clemente to see a rheumatolist due to abnormal lab results; states compliant with HEP and shoulder pain is improving except with wrists. PT-OP-E Functional Tests Start: 02/23/18 10:30 Freq: Status: Active Protocol: Document 02/23/18 16:02 EA (Rec: 02/23/18 16:06 EA [id number]) Functional Tests Apley's Scratch Test Action 1: The subject is instructed to touch the opposite shoulder with his/her hand. This motion checks Glenohumeral adduction, internal rotation , horizontal adduction and scapular protraction Action 2: The subject is instructed to place his/her arm overhead and reach behind the neck to touch his/her upper back. This motion checks Glenohumeral abduction, external rotation and scapular upward rotation and elevation. Action 3: The subject puts his/her hand on the lower back and reaches upward as far as possible. This motion checks glenohumeral adduction, internal rotation and scapular retraction with downward rotation Action 1- Left able Action 1- Right able Action 2- Left ear Action 2- Right ear Action 3- Left T10 Action 3- Right T10 PT-OP-F Manual Assessment Start: 02/23/18 10:30 Freq: Status: Active Protocol: Document 02/23/18 16:02 EA (Rec: 02/23/18 16:06 EA [id number]) Manual Assessments Soft Tissue Assessment Soft Tissue Mobility Assessment Tight ness to upper traps, scalenes, LS Joint Mobility Assessment Joint Mobility Assessment Normal joint mobility to both wrist and GH PT-OP-H Neuro Start: 02/23/18 10:30 Freq: Status: Active Protocol: Document 02/23/18 15:38 EA (Rec: 02/23/18 16:01 EA [id number]) Sensation Evaluation Gross Sensation Gross Sensation WNL Comments Summary Comments WFL in all sensory tests Deep Tendon Reflex & Clonus Assessment Deep Tendon Reflex Bilateral Tricep Deep Tendon Reflex 1+ Diminished Bilateral Bicep Deep Tendon Reflex 1+ Diminished Vital Signs Pulse 1 Pulse at Rest (bpm) 55 Pulse Assessment Method Palpation Blood Pressure Sitting Blood Pressure (90/60-120/80 mmHg) 90/50 L Blood Pressure Source Manual Cuff Left Upper Extremity PT-OP-J Posture/Palpation/Skin Start: 02/23/18 10:30 Freq: Status: Active Protocol: Document 02/23/18 15:38 EA (Rec: 02/23/18 16:01 EA [id number]) Posture Evaluation Position Standing Evaluation View ant/post Comments Posture Comments slight forward head with rounded shoulder Palpation Assessment Location One Palpation Location Bilateral entire shoulders Palpation Findings Soft Tissue Tightness Tenderness PT-OP-K Range of Motion Start: 02/23/18 10:30 Freq: Status: Active Protocol: Document 02/23/18 15:38 EA (Rec: 02/23/18 16:01 EA [id number]) Cervical Spine Range of Motion Cervical Spine Active Percentage Testing Position Sitting Flexion 90 Extension 65 Rotation Left 60 Rotation Right 65 Lateral Flexion Left 60 Lateral Flexion Right 60 ROM Limitations Soft Tissue Tightness Pain Comments Pain to left mid cervical with rotation to both sides. Shoulder Goniometric Range of Motion Shoulder Measured in Degrees Right Passive Shoulder ROM WFL Yes Left Passive Shoulder ROM WFL Yes Wrist Goniometric Range of Motion Wrist Measured in Degrees Right Wrist ROM WFL Yes Left Wrist ROM WFL Yes PT-OP-L Special Tests Start: 02/23/18 10:30 Freq: Status: Active Protocol: Document 02/23/18 15:38 EA (Rec: 02/23/18 16:01 EA [id number]) Special Tests Cervical Spine Special Tests Upper Limb Tension Test Test Results Negative bilateral Foraminal Compression Test Results negative bilateral Shoulder Special Tests Elevation Impingement Test Results negative Passive ER Rotator Cuff Test Results negative bilateral Neer Impingement Test Results negatibe bilat Other Special Tests Special Tests Phalen's and Reverse Phalen's test: bilateral negative. Capillary feeling test: both negative PT-OP-M Strength Start: 02/23/18 10:30 Freq: Status: Active Protocol: Document 02/23/18 15:38 EA (Rec: 02/23/18 16:01 EA [id number]) Cervical Spine Strength Cervical Spine Manual Muscle Testing Testing Position Sitting Flexion (C1-2) 4 Good Extension 4 Good Rotation Left 4 Good Rotation Right 4 Good Lateral Flexion Left (C3) 4 Good Lateral Flexion Right (C3) 4 Good Shoulder Strength Shoulder Manual Muscle Testing Right Extension 4- Good- Abduction (C5) 3 Fair Adduction 4- Good- External Rotation 3 Fair Internal Rotation 3 Fair Horizontal Abduction 3+ Fair+ Horizontal Adduction 3+ Fair+ Reason Not Measured Pain Left Flexion 3+ Fair+ Extension 4- Good- Abduction (C5) 3 Fair Adduction 4- Good- External Rotation 3 Fair Internal Rotation 3 Fair Horizontal Abduction 3+ Fair+ Horizontal Adduction 3+ Fair+ Reason Not Measured Pain Elbow/Forearm Strength Elbow and Forearm Manual Muscle Testing Right Reason Not Measured WFL Left Reason Not Measured WFL Wrist Strength Wrist Manual Muscle Testing Right Flexion (C7) 4+ Good+ Extension (C6) 4+ Good+ Ulnar Deviation 5 Normal Radial Deviation 4+ Good+ Left Flexion (C7) 5 Normal Extension (C6) 4+ Good+ Ulnar Deviation 4+ Good+ Radial Deviation 4+ Good+ Hand Data Warehousing Architect/Pinch Strength Hand Dominance Hand Dominance Right Hand Strength Left Comments Dynamometer: (L 28) (R 24) PT-OP-Q Treatments Start: 02/23/18 10:30 Freq: Status: Active Protocol: Document 03/10/18 10:29 EA (Rec: 03/10/18 10:36 EA [id number]) Cardio Equipment Upper Body Ergometer (UBE) Duration (Minutes) 5 Height 6 Gym Equipment Cable Column (Body Solid) Other- 1 Details Adjustable cable: Pull down, mid row, low row Resistance 2-3 plates Reps/Time x 12 reps x 2 sets each level Therapeutic Exercises Supine Exercises 3 Supine Exercise Name D1,D2 Side bilateral Resistance Manual Reps/Minutes x 10 reps Comments Right shoulder pain free range 2 Supine Exercise Name Shoulder Flexion AROM Side bilateral Reps/Minutes x 15 reps x 2 1 Supine Exercise Name AROM; shoulder horiz ABD Side bilateral Reps/Minutes x 15 reps Sitting Exercises 3 Sitting Exercise Name Shoulder chilango: flexion/ABD Side bilateral Reps/Minutes x 15 reps 2 Sitting Exercise Name Shoulder flexion Side bilateral Resistance 1-2# Reps/Minutes x 10 reps 1 Sitting Exercise Name Shoulder ABD pain free Side bilateral Resistance 1-2# Reps/Minutes x 10 reps Standing Exercises 4 Standing Exercise Name Wall slider: shoulder flexion Side bilateral Reps/Minutes x 15 reps 3 Standing Exercise Name Row Side bilateral Reps/Minutes x 10 reps x 2 2 Standing Exercise Name Triceps ext Side bilateral Resistance Lv 2 Reps/Minutes x 10 reps 1 Standing Exercise Name Shoulder Ext Side bilateral Resistance Lv 3 Reps/Minutes x 10 reps Manual Therapy Treatment Soft Tissue Mobilization 1 Body Location Both shoulders Mobilization Type Rolling Sustained Pressure Trigger Point Release Intensity/Depth Moderate Body Position Supine PT-OP-R Modalities Start: 02/23/18 10:30 Freq: Status: Active Protocol: Document 03/10/18 10:36 EA (Rec: 03/10/18 10:36 EA [id number]) Electric Stimulation Electric Stimulation Interferential Current (IFC) Body Location Both shoulders Intensity 15 Patient Position Hooklying Combined With Heat/Cold Hot Pack PT-OP-T Assessment and Plan Start: 02/23/18 10:30 Freq: Status: Active Protocol: Document 03/10/18 10:29 EA (Rec: 03/10/18 10:36 EA [id number]) Physical Therapy Assessment Assessment Summary Assessment Tolerated treatment well. Improved range and strength noted with free weight and cable exercises Physical Therapy Plan Next Visit Focus/Plan Next Note Type Treatment Note Next Visit Plan Progress as able.
--- NOTE | 2018-03-15 12:13 | PT.OTN ---
Current Diagnoses Carpal tunnel syndrome, unspecified upper limb (03/15/18) Carpal tunnel syndrome, bilateral upper limbs (03/15/18) Physical Therapy Treatment Note PT-OP-A Visit Information Start: 02/23/18 10:30 Freq: Status: Active Protocol: Document 03/15/18 07:33 EA (Rec: 03/15/18 08:10 EA [id number]) Out-Patient Physical Therapy Visit Information Visit Information Visit Type Treatment Note Visit Start Time 07:30 Visit Stop Time 08:15 Total Visit Minutes 45 PT-OP-B Current Condition Start: 02/23/18 10:30 Freq: Status: Active Protocol: Document 02/23/18 12:47 EA (Rec: 02/23/18 12:59 EA [id number]) Current Condition History of Current Condition Onset Date 2 months ago History of Current Condition Present c/o bilateral hands pain started two months ago with no known reason. Pt reports both wrists and finger joints initially was sharp with any gripping activities and currently achy pain; states there were times unable to open or close the hands due to weakness and pain. Patient also reports that pain to both shoulders with weakness folllowed after the hands dysfunction. Patient denies any swelling or increased in joint temperature . Pt mentioned that 2 months ago he lost 8 lbs of weight with no apparent reason. He stated that his doctor did not bother about it as his lab works seems to be normal during last blood chem analysis. Pt mentioned that he has been a smoker for more than 50 years with no pulmonary complication in the past months; he states that he is diagnosed with hypothyroidism and is under medication. Prior Treatments and Tests Ibuprofen Future Testing and Treatments Planned None identified. 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 Functional Limitations- Mobility/Gait indep Functional Limitations- Work/School Unable to comeback to work due to pain on both shoulders and hands PT-OP-C Subjective Start: 02/23/18 10:30 Freq: Status: Active Protocol: Document 03/15/18 07:33 EA (Rec: 03/15/18 08:10 EA [id number]) OP-PT Subjective Patient Comments Patient Comments Pt reports both hand and shoulder are improving as he is now able to opne jars and bottle with little difficulty. PT-OP-E Functional Tests Start: 02/23/18 10:30 Freq: Status: Active Protocol: Document 02/23/18 16:02 EA (Rec: 02/23/18 16:06 EA [id number]) Functional Tests Apley's Scratch Test Action 1: The subject is instructed to touch the opposite shoulder with his/her hand. This motion checks Glenohumeral adduction, internal rotation , horizontal adduction and scapular protraction Action 2: The subject is instructed to place his/her arm overhead and reach behind the neck to touch his/her upper back. This motion checks Glenohumeral abduction, external rotation and scapular upward rotation and elevation. Action 3: The subject puts his/her hand on the lower back and reaches upward as far as possible. This motion checks glenohumeral adduction, internal rotation and scapular retraction with downward rotation Action 1- Left able Action 1- Right able Action 2- Left ear Action 2- Right ear Action 3- Left T10 Action 3- Right T10 PT-OP-F Manual Assessment Start: 02/23/18 10:30 Freq: Status: Active Protocol: Document 02/23/18 16:02 EA (Rec: 02/23/18 16:06 EA [id number]) Manual Assessments Soft Tissue Assessment Soft Tissue Mobility Assessment Tight ness to upper traps, scalenes, LS Joint Mobility Assessment Joint Mobility Assessment Normal joint mobility to both wrist and GH PT-OP-H Neuro Start: 02/23/18 10:30 Freq: Status: Active Protocol: Document 02/23/18 15:38 EA (Rec: 02/23/18 16:01 EA [id number]) Sensation Evaluation Gross Sensation Gross Sensation WNL Comments Summary Comments WFL in all sensory tests Deep Tendon Reflex & Clonus Assessment Deep Tendon Reflex Bilateral Tricep Deep Tendon Reflex 1+ Diminished Bilateral Bicep Deep Tendon Reflex 1+ Diminished Vital Signs Pulse 1 Pulse at Rest (bpm) 55 Pulse Assessment Method Palpation Blood Pressure Sitting Blood Pressure (90/60-120/80 mmHg) 90/50 L Blood Pressure Source Manual Cuff Left Upper Extremity PT-OP-J Posture/Palpation/Skin Start: 02/23/18 10:30 Freq: Status: Active Protocol: Document 02/23/18 15:38 EA (Rec: 02/23/18 16:01 EA [id number]) Posture Evaluation Position Standing Evaluation View ant/post Comments Posture Comments slight forward head with rounded shoulder Palpation Assessment Location One Palpation Location Bilateral entire shoulders Palpation Findings Soft Tissue Tightness Tenderness PT-OP-K Range of Motion Start: 02/23/18 10:30 Freq: Status: Active Protocol: Document 02/23/18 15:38 EA (Rec: 02/23/18 16:01 EA [id number]) Cervical Spine Range of Motion Cervical Spine Active Percentage Testing Position Sitting Flexion 90 Extension 65 Rotation Left 60 Rotation Right 65 Lateral Flexion Left 60 Lateral Flexion Right 60 ROM Limitations Soft Tissue Tightness Pain Comments Pain to left mid cervical with rotation to both sides. Shoulder Goniometric Range of Motion Shoulder Measured in Degrees Right Passive Shoulder ROM WFL Yes Left Passive Shoulder ROM WFL Yes Wrist Goniometric Range of Motion Wrist Measured in Degrees Right Wrist ROM WFL Yes Left Wrist ROM WFL Yes PT-OP-L Special Tests Start: 02/23/18 10:30 Freq: Status: Active Protocol: Document 02/23/18 15:38 EA (Rec: 02/23/18 16:01 EA [id number]) Special Tests Cervical Spine Special Tests Upper Limb Tension Test Test Results Negative bilateral Foraminal Compression Test Results negative bilateral Shoulder Special Tests Elevation Impingement Test Results negative Passive ER Rotator Cuff Test Results negative bilateral Neer Impingement Test Results negatibe bilat Other Special Tests Special Tests Phalen's and Reverse Phalen's test: bilateral negative. Capillary feeling test: both negative PT-OP-M Strength Start: 02/23/18 10:30 Freq: Status: Active Protocol: Document 02/23/18 15:38 EA (Rec: 02/23/18 16:01 EA [id number]) Cervical Spine Strength Cervical Spine Manual Muscle Testing Testing Position Sitting Flexion (C1-2) 4 Good Extension 4 Good Rotation Left 4 Good Rotation Right 4 Good Lateral Flexion Left (C3) 4 Good Lateral Flexion Right (C3) 4 Good Shoulder Strength Shoulder Manual Muscle Testing Right Extension 4- Good- Abduction (C5) 3 Fair Adduction 4- Good- External Rotation 3 Fair Internal Rotation 3 Fair Horizontal Abduction 3+ Fair+ Horizontal Adduction 3+ Fair+ Reason Not Measured Pain Left Flexion 3+ Fair+ Extension 4- Good- Abduction (C5) 3 Fair Adduction 4- Good- External Rotation 3 Fair Internal Rotation 3 Fair Horizontal Abduction 3+ Fair+ Horizontal Adduction 3+ Fair+ Reason Not Measured Pain Elbow/Forearm Strength Elbow and Forearm Manual Muscle Testing Right Reason Not Measured WFL Left Reason Not Measured WFL Wrist Strength Wrist Manual Muscle Testing Right Flexion (C7) 4+ Good+ Extension (C6) 4+ Good+ Ulnar Deviation 5 Normal Radial Deviation 4+ Good+ Left Flexion (C7) 5 Normal Extension (C6) 4+ Good+ Ulnar Deviation 4+ Good+ Radial Deviation 4+ Good+ Hand Flanging Machine Operator/Pinch Strength Hand Dominance Hand Dominance Right Hand Strength Left Comments Dynamometer: (L 28) (R 24) PT-OP-Q Treatments Start: 02/23/18 10:30 Freq: Status: Active Protocol: Document 03/15/18 07:33 EA (Rec: 03/15/18 08:10 EA [id number]) Cardio Equipment Upper Body Ergometer (UBE) Duration (Minutes) 5 Height 5 Gym Equipment Cable Column (Body Solid) Other- 1 Details Adjustable cable: Pull down, mid row, low row Resistance 2-3 plates Reps/Time x 12 reps x 2 sets each level Therapeutic Exercises Supine Exercises 3 Supine Exercise Name D1,D2 Side bilateral Resistance Manual Reps/Minutes x 10 reps Comments Right shoulder pain free range 2 Supine Exercise Name Shoulder Flexion AROM Side bilateral Reps/Minutes x 15 reps x 2 1 Supine Exercise Name AROM; shoulder horiz ABD Side bilateral Reps/Minutes x 15 reps Sitting Exercises 3 Sitting Exercise Name Shoulder chilango: flexion/ABD Side bilateral Reps/Minutes x 15 reps 2 Sitting Exercise Name Shoulder flexion/ABD Side bilateral Resistance 1-2# Reps/Minutes x 10 reps Standing Exercises 4 Standing Exercise Name wall T-bar shoulder press pain free ramge Side bilateral Reps/Minutes x 15 reps 2 Standing Exercise Name Triceps ext Side bilateral Resistance Lv 2-3 Reps/Minutes x 10 reps 1 Standing Exercise Name Shoulder Ext Side bilateral Resistance Lv 3 Reps/Minutes x 10 reps Manual Therapy Treatment Soft Tissue Mobilization 1 Body Location Both shoulders Mobilization Type Rolling Sustained Pressure Trigger Point Release Intensity/Depth Moderate Body Position Supine PT-OP-R Modalities Start: 02/23/18 10:30 Freq: Status: Active Protocol: Document 03/15/18 07:33 EA (Rec: 03/15/18 08:10 EA [id number]) Electric Stimulation Electric Stimulation Interferential Current (IFC) Body Location Both shoulders Intensity 15 Patient Position Hooklying Combined With Heat/Cold Hot Pack PT-OP-T Assessment and Plan Start: 02/23/18 10:30 Freq: Status: Active Protocol: Document 03/15/18 07:33 EA (Rec: 03/15/18 08:10 EA [id number]) Physical Therapy Assessment Assessment Summary Assessment Pt performed exercises with less discomfort with improved shoulder mobility. Patient is showing fair improvement at this time. Cont. with current plan, gradual intensity to progress. Physical Therapy Plan Next Visit Focus/Plan Next Note Type Treatment Note Next Visit Plan Progress as able.
--- NOTE | 2018-03-17 12:10 | PT.OTN ---
Current Diagnoses Carpal tunnel syndrome, unspecified upper limb (03/17/18) Carpal tunnel syndrome, bilateral upper limbs (03/17/18) Physical Therapy Treatment Note PT-OP-A Visit Information Start: 02/23/18 10:30 Freq: Status: Active Protocol: Document 03/17/18 10:34 EA (Rec: 03/17/18 10:47 EA [id number]) Out-Patient Physical Therapy Visit Information Visit Information Visit Type Treatment Note Visit Start Time 09:45 Visit Stop Time 10:40 Total Visit Minutes 55 PT-OP-B Current Condition Start: 02/23/18 10:30 Freq: Status: Active Protocol: Document 02/23/18 12:47 EA (Rec: 02/23/18 12:59 EA [id number]) Current Condition History of Current Condition Onset Date 2 months ago History of Current Condition Present c/o bilateral hands pain started two months ago with no known reason. Pt reports both wrists and finger joints initially was sharp with any gripping activities and currently achy pain; states there were times unable to open or close the hands due to weakness and pain. Patient also reports that pain to both shoulders with weakness folllowed after the hands dysfunction. Patient denies any swelling or increased in joint temperature . Pt mentioned that 2 months ago he lost 8 lbs of weight with no apparent reason. He stated that his doctor did not bother about it as his lab works seems to be normal during last blood chem analysis. Pt mentioned that he has been a smoker for more than 50 years with no pulmonary complication in the past months; he states that he is diagnosed with hypothyroidism and is under medication. Prior Treatments and Tests Ibuprofen Future Testing and Treatments Planned None identified. 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 Functional Limitations- Mobility/Gait indep Functional Limitations- Work/School Unable to comeback to work due to pain on both shoulders and hands PT-OP-C Subjective Start: 02/23/18 10:30 Freq: Status: Active Protocol: Document 03/17/18 10:34 EA (Rec: 03/17/18 10:47 EA [id number]) OP-PT Subjective Patient Comments Patient Comments Pt reports that he is under steroids at this time as his rhuematologist dignosed him with rheumatoid arthritis; states pain and stiff ness is quite less at this time after having the meds. Patient Reported Progress Improving PT-OP-E Functional Tests Start: 02/23/18 10:30 Freq: Status: Active Protocol: Document 02/23/18 16:02 EA (Rec: 02/23/18 16:06 EA [id number]) Functional Tests Apley's Scratch Test Action 1: The subject is instructed to touch the opposite shoulder with his/her hand. This motion checks Glenohumeral adduction, internal rotation , horizontal adduction and scapular protraction Action 2: The subject is instructed to place his/her arm overhead and reach behind the neck to touch his/her upper back. This motion checks Glenohumeral abduction, external rotation and scapular upward rotation and elevation. Action 3: The subject puts his/her hand on the lower back and reaches upward as far as possible. This motion checks glenohumeral adduction, internal rotation and scapular retraction with downward rotation Action 1- Left able Action 1- Right able Action 2- Left ear Action 2- Right ear Action 3- Left T10 Action 3- Right T10 PT-OP-F Manual Assessment Start: 02/23/18 10:30 Freq: Status: Active Protocol: Document 02/23/18 16:02 EA (Rec: 02/23/18 16:06 EA [id number]) Manual Assessments Soft Tissue Assessment Soft Tissue Mobility Assessment Tight ness to upper traps, scalenes, LS Joint Mobility Assessment Joint Mobility Assessment Normal joint mobility to both wrist and GH PT-OP-H Neuro Start: 02/23/18 10:30 Freq: Status: Active Protocol: Document 02/23/18 15:38 EA (Rec: 02/23/18 16:01 EA [id number]) Sensation Evaluation Gross Sensation Gross Sensation WNL Comments Summary Comments WFL in all sensory tests Deep Tendon Reflex & Clonus Assessment Deep Tendon Reflex Bilateral Tricep Deep Tendon Reflex 1+ Diminished Bilateral Bicep Deep Tendon Reflex 1+ Diminished Vital Signs Pulse 1 Pulse at Rest (bpm) 55 Pulse Assessment Method Palpation Blood Pressure Sitting Blood Pressure (90/60-120/80 mmHg) 90/50 L Blood Pressure Source Manual Cuff Left Upper Extremity PT-OP-J Posture/Palpation/Skin Start: 02/23/18 10:30 Freq: Status: Active Protocol: Document 02/23/18 15:38 EA (Rec: 02/23/18 16:01 EA [id number]) Posture Evaluation Position Standing Evaluation View ant/post Comments Posture Comments slight forward head with rounded shoulder Palpation Assessment Location One Palpation Location Bilateral entire shoulders Palpation Findings Soft Tissue Tightness Tenderness PT-OP-K Range of Motion Start: 02/23/18 10:30 Freq: Status: Active Protocol: Document 02/23/18 15:38 EA (Rec: 02/23/18 16:01 EA [id number]) Cervical Spine Range of Motion Cervical Spine Active Percentage Testing Position Sitting Flexion 90 Extension 65 Rotation Left 60 Rotation Right 65 Lateral Flexion Left 60 Lateral Flexion Right 60 ROM Limitations Soft Tissue Tightness Pain Comments Pain to left mid cervical with rotation to both sides. Shoulder Goniometric Range of Motion Shoulder Measured in Degrees Right Passive Shoulder ROM WFL Yes Left Passive Shoulder ROM WFL Yes Wrist Goniometric Range of Motion Wrist Measured in Degrees Right Wrist ROM WFL Yes Left Wrist ROM WFL Yes PT-OP-L Special Tests Start: 02/23/18 10:30 Freq: Status: Active Protocol: Document 02/23/18 15:38 EA (Rec: 02/23/18 16:01 EA [id number]) Special Tests Cervical Spine Special Tests Upper Limb Tension Test Test Results Negative bilateral Foraminal Compression Test Results negative bilateral Shoulder Special Tests Elevation Impingement Test Results negative Passive ER Rotator Cuff Test Results negative bilateral Neer Impingement Test Results negatibe bilat Other Special Tests Special Tests Phalen's and Reverse Phalen's test: bilateral negative. Capillary feeling test: both negative PT-OP-M Strength Start: 02/23/18 10:30 Freq: Status: Active Protocol: Document 02/23/18 15:38 EA (Rec: 02/23/18 16:01 EA [id number]) Cervical Spine Strength Cervical Spine Manual Muscle Testing Testing Position Sitting Flexion (C1-2) 4 Good Extension 4 Good Rotation Left 4 Good Rotation Right 4 Good Lateral Flexion Left (C3) 4 Good Lateral Flexion Right (C3) 4 Good Shoulder Strength Shoulder Manual Muscle Testing Right Extension 4- Good- Abduction (C5) 3 Fair Adduction 4- Good- External Rotation 3 Fair Internal Rotation 3 Fair Horizontal Abduction 3+ Fair+ Horizontal Adduction 3+ Fair+ Reason Not Measured Pain Left Flexion 3+ Fair+ Extension 4- Good- Abduction (C5) 3 Fair Adduction 4- Good- External Rotation 3 Fair Internal Rotation 3 Fair Horizontal Abduction 3+ Fair+ Horizontal Adduction 3+ Fair+ Reason Not Measured Pain Elbow/Forearm Strength Elbow and Forearm Manual Muscle Testing Right Reason Not Measured WFL Left Reason Not Measured WFL Wrist Strength Wrist Manual Muscle Testing Right Flexion (C7) 4+ Good+ Extension (C6) 4+ Good+ Ulnar Deviation 5 Normal Radial Deviation 4+ Good+ Left Flexion (C7) 5 Normal Extension (C6) 4+ Good+ Ulnar Deviation 4+ Good+ Radial Deviation 4+ Good+ Hand Asbestos Shingle Inspector/Pinch Strength Hand Dominance Hand Dominance Right Hand Strength Left Comments Dynamometer: (L 28) (R 24) PT-OP-Q Treatments Start: 02/23/18 10:30 Freq: Status: Active Protocol: Document 03/17/18 10:34 EA (Rec: 03/17/18 10:47 EA [id number]) Cardio Equipment Upper Body Ergometer (UBE) Duration (Minutes) 5 Height 7 Gym Equipment Cable Column (Body Solid) Other- 1 Details Adjustable cable: Pull down, mid row, low row Resistance 2-3 plates Reps/Time x 12 reps x 2 sets each level Therapeutic Exercises Supine Exercises 3 Supine Exercise Name D1,D2 Side bilateral Resistance 2 lbs AW to both wrist Reps/Minutes x 10 reps Comments Right shoulder pain free range 2 Supine Exercise Name Shoulder Flexion AROM Side bilateral Reps/Minutes x 15 reps x 2 1 Supine Exercise Name AROM; shoulder horiz ABD Side bilateral Reps/Minutes x 15 reps Sitting Exercises 4 Sitting Exercise Name balloon toss with 2lbs AW to both wrist Reps/Minutes x 30 secs each arm x 2 2 Sitting Exercise Name Shoulder flexion/ABD Side bilateral Resistance 1-2# Reps/Minutes 10 reps x 2 sets 1 Sitting Exercise Name Shoulder ABD pain free Side bilateral Resistance 1-2# Reps/Minutes x 2 sets Standing Exercises 4 Standing Exercise Name wall T-bar shoulder press pain free range Side bilateral Resistance 4 lbs Reps/Minutes x 15 reps x 2 3 Standing Exercise Name Row Side bilateral Reps/Minutes x 10 reps x 2 2 Standing Exercise Name Triceps ext Side bilateral Resistance Lv 2-3 Reps/Minutes x 10 reps 1 Standing Exercise Name Shoulder Ext Side bilateral Resistance Lv 3 Reps/Minutes x 10 reps PT-OP-R Modalities Start: 02/23/18 10:30 Freq: Status: Active Protocol: Document 03/17/18 10:34 EA (Rec: 03/17/18 10:47 EA [id number]) Electric Stimulation Electric Stimulation Interferential Current (IFC) Body Location Both shoulders Intensity 15 Patient Position Hooklying Combined With Heat/Cold Hot Pack PT-OP-T Assessment and Plan Start: 02/23/18 10:30 Freq: Status: Active Protocol: Document 03/17/18 11:12 EA (Rec: 03/17/18 11:14 EA [id number]) Physical Therapy Assessment Progress Towards Goals Progress Towards Goals Progressing Toward Goals Assessment Summary Assessment Noted improved both UE's strength with very less discomfort in all shoulder exercises. Hand pension examiner tested today with more than normal strength result. Patient continue to benefit with current program. Physical Therapy Plan Next Visit Focus/Plan Next Note Type Treatment Note Next Visit Plan advance as tolerated
--- NOTE | 2018-03-23 08:45 | PT.OTN ---
Current Diagnoses Carpal tunnel syndrome, unspecified upper limb (03/23/18) Carpal tunnel syndrome, bilateral upper limbs (03/23/18) Physical Therapy Treatment Note PT-OP-A Visit Information Start: 02/23/18 10:30 Freq: Status: Active Protocol: Document 03/23/18 08:19 EA (Rec: 03/23/18 08:26 EA [id number]) Out-Patient Physical Therapy Visit Information Visit Information Visit Type Treatment Note Visit Start Time 07:30 Visit Stop Time 08:20 Total Visit Minutes 53 PT-OP-B Current Condition Start: 02/23/18 10:30 Freq: Status: Active Protocol: Document 02/23/18 12:47 EA (Rec: 02/23/18 12:59 EA [id number]) Current Condition History of Current Condition Onset Date 2 months ago History of Current Condition Present c/o bilateral hands pain started two months ago with no known reason. Pt reports both wrists and finger joints initially was sharp with any gripping activities and currently achy pain; states there were times unable to open or close the hands due to weakness and pain. Patient also reports that pain to both shoulders with weakness folllowed after the hands dysfunction. Patient denies any swelling or increased in joint temperature . Pt mentioned that 2 months ago he lost 8 lbs of weight with no apparent reason. He stated that his doctor did not bother about it as his lab works seems to be normal during last blood chem analysis. Pt mentioned that he has been a smoker for more than 50 years with no pulmonary complication in the past months; he states that he is diagnosed with hypothyroidism and is under medication. Prior Treatments and Tests Ibuprofen Future Testing and Treatments Planned None identified. 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 Functional Limitations- Mobility/Gait indep Functional Limitations- Work/School Unable to comeback to work due to pain on both shoulders and hands PT-OP-C Subjective Start: 02/23/18 10:30 Freq: Status: Active Protocol: Document 03/23/18 08:19 EA (Rec: 03/23/18 08:26 EA [id number]) OP-PT Subjective Patient Comments Patient Comments Pt reports unable to perform resistance exercises at home but able to perform ROM to shoulder and hands; statesd left shoulder still achy but is getting better. Patient Reported Progress Improving PT-OP-E Functional Tests Start: 02/23/18 10:30 Freq: Status: Active Protocol: Document 02/23/18 16:02 EA (Rec: 02/23/18 16:06 EA [id number]) Functional Tests Apley's Scratch Test Action 1: The subject is instructed to touch the opposite shoulder with his/her hand. This motion checks Glenohumeral adduction, internal rotation , horizontal adduction and scapular protraction Action 2: The subject is instructed to place his/her arm overhead and reach behind the neck to touch his/her upper back. This motion checks Glenohumeral abduction, external rotation and scapular upward rotation and elevation. Action 3: The subject puts his/her hand on the lower back and reaches upward as far as possible. This motion checks glenohumeral adduction, internal rotation and scapular retraction with downward rotation Action 1- Left able Action 1- Right able Action 2- Left ear Action 2- Right ear Action 3- Left T10 Action 3- Right T10 PT-OP-F Manual Assessment Start: 02/23/18 10:30 Freq: Status: Active Protocol: Document 02/23/18 16:02 EA (Rec: 02/23/18 16:06 EA [id number]) Manual Assessments Soft Tissue Assessment Soft Tissue Mobility Assessment Tight ness to upper traps, scalenes, LS Joint Mobility Assessment Joint Mobility Assessment Normal joint mobility to both wrist and GH PT-OP-H Neuro Start: 02/23/18 10:30 Freq: Status: Active Protocol: Document 02/23/18 15:38 EA (Rec: 02/23/18 16:01 EA [id number]) Sensation Evaluation Gross Sensation Gross Sensation WNL Comments Summary Comments WFL in all sensory tests Deep Tendon Reflex & Clonus Assessment Deep Tendon Reflex Bilateral Tricep Deep Tendon Reflex 1+ Diminished Bilateral Bicep Deep Tendon Reflex 1+ Diminished Vital Signs Pulse 1 Pulse at Rest (bpm) 55 Pulse Assessment Method Palpation Blood Pressure Sitting Blood Pressure (90/60-120/80 mmHg) 90/50 L Blood Pressure Source Manual Cuff Left Upper Extremity PT-OP-J Posture/Palpation/Skin Start: 02/23/18 10:30 Freq: Status: Active Protocol: Document 02/23/18 15:38 EA (Rec: 02/23/18 16:01 EA [id number]) Posture Evaluation Position Standing Evaluation View ant/post Comments Posture Comments slight forward head with rounded shoulder Palpation Assessment Location One Palpation Location Bilateral entire shoulders Palpation Findings Soft Tissue Tightness Tenderness PT-OP-K Range of Motion Start: 02/23/18 10:30 Freq: Status: Active Protocol: Document 02/23/18 15:38 EA (Rec: 02/23/18 16:01 EA [id number]) Cervical Spine Range of Motion Cervical Spine Active Percentage Testing Position Sitting Flexion 90 Extension 65 Rotation Left 60 Rotation Right 65 Lateral Flexion Left 60 Lateral Flexion Right 60 ROM Limitations Soft Tissue Tightness Pain Comments Pain to left mid cervical with rotation to both sides. Shoulder Goniometric Range of Motion Shoulder Measured in Degrees Right Passive Shoulder ROM WFL Yes Left Passive Shoulder ROM WFL Yes Wrist Goniometric Range of Motion Wrist Measured in Degrees Right Wrist ROM WFL Yes Left Wrist ROM WFL Yes PT-OP-L Special Tests Start: 02/23/18 10:30 Freq: Status: Active Protocol: Document 02/23/18 15:38 EA (Rec: 02/23/18 16:01 EA [id number]) Special Tests Cervical Spine Special Tests Upper Limb Tension Test Test Results Negative bilateral Foraminal Compression Test Results negative bilateral Shoulder Special Tests Elevation Impingement Test Results negative Passive ER Rotator Cuff Test Results negative bilateral Neer Impingement Test Results negatibe bilat Other Special Tests Special Tests Phalen's and Reverse Phalen's test: bilateral negative. Capillary feeling test: both negative PT-OP-M Strength Start: 02/23/18 10:30 Freq: Status: Active Protocol: Document 02/23/18 15:38 EA (Rec: 02/23/18 16:01 EA [id number]) Cervical Spine Strength Cervical Spine Manual Muscle Testing Testing Position Sitting Flexion (C1-2) 4 Good Extension 4 Good Rotation Left 4 Good Rotation Right 4 Good Lateral Flexion Left (C3) 4 Good Lateral Flexion Right (C3) 4 Good Shoulder Strength Shoulder Manual Muscle Testing Right Extension 4- Good- Abduction (C5) 3 Fair Adduction 4- Good- External Rotation 3 Fair Internal Rotation 3 Fair Horizontal Abduction 3+ Fair+ Horizontal Adduction 3+ Fair+ Reason Not Measured Pain Left Flexion 3+ Fair+ Extension 4- Good- Abduction (C5) 3 Fair Adduction 4- Good- External Rotation 3 Fair Internal Rotation 3 Fair Horizontal Abduction 3+ Fair+ Horizontal Adduction 3+ Fair+ Reason Not Measured Pain Elbow/Forearm Strength Elbow and Forearm Manual Muscle Testing Right Reason Not Measured WFL Left Reason Not Measured WFL Wrist Strength Wrist Manual Muscle Testing Right Flexion (C7) 4+ Good+ Extension (C6) 4+ Good+ Ulnar Deviation 5 Normal Radial Deviation 4+ Good+ Left Flexion (C7) 5 Normal Extension (C6) 4+ Good+ Ulnar Deviation 4+ Good+ Radial Deviation 4+ Good+ Hand Cabin Service Agent/Pinch Strength Hand Dominance Hand Dominance Right Hand Strength Left Comments Dynamometer: (L 28) (R 24) PT-OP-Q Treatments Start: 02/23/18 10:30 Freq: Status: Active Protocol: Document 03/23/18 08:19 EA (Rec: 03/23/18 08:26 EA [id number]) Cardio Equipment Upper Body Ergometer (UBE) Duration (Minutes) 5 Height 7 Gym Equipment Cable Column (Body Solid) Other- 1 Details Adjustable cable: Pull down, mid row, low row Resistance 3 plates Reps/Time x 12 reps x 2 sets each level Therapeutic Exercises Supine Exercises 3 Supine Exercise Name D1,D2 Side bilateral Resistance 2 lbs AW to both wrist Reps/Minutes x 10 reps Comments Right shoulder pain free range Prone Exercises 1 Prone Exercise Name T-Ball shoulder hori ABD/ shoulde T- and Y Resistance 1# wrist wghts Reps/Minutes x 12 reps Sitting Exercises 4 Sitting Exercise Name balloon toss with 2lbs AW to both wrist Resistance 1# AW to woth wrists Reps/Minutes x 30 secs each arm x 2 2 Sitting Exercise Name Shoulder flexion/ABD Side bilateral Resistance 1-2# Reps/Minutes 10 reps x 2 sets 1 Sitting Exercise Name Shoulder ABD pain free Side bilateral Resistance 1-2# Reps/Minutes x 2 sets Standing Exercises 6 Standing Exercise Name BODY BLADE: fronts/sides 0-75 degs Reps/Minutes x 30sec each x 2 Comments double and single arm 5 Standing Exercise Name Chest crossover Side bilateral Resistance Lv 3 Reps/Minutes x 12 reps 4 Standing Exercise Name wall T-bar shoulder press pain free range Side bilateral Resistance 4 -6 lbs Reps/Minutes x 15 reps x 2 2 Standing Exercise Name Triceps ext Side bilateral Resistance Lv 2-3 Reps/Minutes x 10 reps 1 Standing Exercise Name Shoulder Ext Side bilateral Resistance Lv 4 Reps/Minutes x 10 reps PT-OP-R Modalities Start: 02/23/18 10:30 Freq: Status: Active Protocol: Document 03/23/18 08:19 EA (Rec: 03/23/18 08:26 EA [id number]) Electric Stimulation Electric Stimulation Interferential Current (IFC) Body Location Both shoulders Intensity 15 Patient Position Hooklying Combined With Heat/Cold Hot Pack PT-OP-T Assessment and Plan Start: 02/23/18 10:30 Freq: Status: Active Protocol: Document 03/23/18 08:19 EA (Rec: 03/23/18 08:26 EA [id number]) Physical Therapy Assessment Assessment Summary Assessment Pt has improved shoulder ABD/ flexion mobility with resistance. Overall patient is progressing well. Physical Therapy Plan Next Visit Focus/Plan Next Note Type Treatment Note Next Visit Plan advance as tolerated
--- NOTE | 2018-03-28 08:23 | PT.OTN ---
Current Diagnoses Carpal tunnel syndrome, unspecified upper limb (03/28/18) Carpal tunnel syndrome, bilateral upper limbs (03/28/18) Physical Therapy Treatment Note PT-OP-A Visit Information Start: 02/23/18 10:30 Freq: Status: Active Protocol: Document 03/28/18 07:32 EA (Rec: 03/28/18 08:15 EA [id number]) Out-Patient Physical Therapy Visit Information Visit Information Visit Type Treatment Note Visit Start Time 07:30 Visit Stop Time 08:20 Total Visit Minutes 53 Visit Number 10 PT-OP-B Current Condition Start: 02/23/18 10:30 Freq: Status: Active Protocol: Document 02/23/18 12:47 EA (Rec: 02/23/18 12:59 EA [id number]) Current Condition History of Current Condition Onset Date 2 months ago History of Current Condition Present c/o bilateral hands pain started two months ago with no known reason. Pt reports both wrists and finger joints initially was sharp with any gripping activities and currently achy pain; states there were times unable to open or close the hands due to weakness and pain. Patient also reports that pain to both shoulders with weakness followed after the hands dysfunction. Patient denies any swelling or increased in joint temperature . Pt mentioned that 2 months ago he lost 8 lbs of weight with no apparent reason. He stated that his doctor did not bother about it as his lab works seems to be normal during last blood chem analysis. Pt mentioned that he has been a smoker for more than 50 years with no pulmonary complication in the past months; he states that he is diagnosed with hypothyroidism and is under medication. Prior Treatments and Tests Ibuprofen Future Testing and Treatments Planned None identified. 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 Functional Limitations- Mobility/Gait indep Functional Limitations- Work/School Unable to comeback to work due to pain on both shoulders and hands PT-OP-C Subjective Start: 02/23/18 10:30 Freq: Status: Active Protocol: Document 03/28/18 07:32 EA (Rec: 03/28/18 08:15 EA [id number]) OP-PT Subjective Patient Comments Patient Comments Pt reports able to sleep to stomach and sides at this time ; states pain to left shoulder rated 1/10 and hands strength are getting better. Pt feels that he is improving very well with the help of steroids. Patient Reported Progress Improving PT-OP-E Functional Tests Start: 02/23/18 10:30 Freq: Status: Active Protocol: Document 02/23/18 16:02 EA (Rec: 02/23/18 16:06 EA [id number]) Functional Tests Apley's Scratch Test Action 1: The subject is instructed to touch the opposite shoulder with his/her hand. This motion checks Glenohumeral adduction, internal rotation , horizontal adduction and scapular protraction Action 2: The subject is instructed to place his/her arm overhead and reach behind the neck to touch his/her upper back. This motion checks Glenohumeral abduction, external rotation and scapular upward rotation and elevation. Action 3: The subject puts his/her hand on the lower back and reaches upward as far as possible. This motion checks glenohumeral adduction, internal rotation and scapular retraction with downward rotation Action 1- Left able Action 1- Right able Action 2- Left ear Action 2- Right ear Action 3- Left T10 Action 3- Right T10 PT-OP-F Manual Assessment Start: 02/23/18 10:30 Freq: Status: Active Protocol: Document 02/23/18 16:02 EA (Rec: 02/23/18 16:06 EA [id number]) Manual Assessments Soft Tissue Assessment Soft Tissue Mobility Assessment Tight ness to upper traps, scalenes, LS Joint Mobility Assessment Joint Mobility Assessment Normal joint mobility to both wrist and GH PT-OP-H Neuro Start: 02/23/18 10:30 Freq: Status: Active Protocol: Document 02/23/18 15:38 EA (Rec: 02/23/18 16:01 EA [id number]) Sensation Evaluation Gross Sensation Gross Sensation WNL Comments Summary Comments WFL in all sensory tests Deep Tendon Reflex & Clonus Assessment Deep Tendon Reflex Bilateral Tricep Deep Tendon Reflex 1+ Diminished Bilateral Bicep Deep Tendon Reflex 1+ Diminished Vital Signs Pulse 1 Pulse at Rest (bpm) 55 Pulse Assessment Method Palpation Blood Pressure Sitting Blood Pressure (90/60-120/80 mmHg) 90/50 L Blood Pressure Source Manual Cuff Left Upper Extremity PT-OP-J Posture/Palpation/Skin Start: 02/23/18 10:30 Freq: Status: Active Protocol: Document 02/23/18 15:38 EA (Rec: 02/23/18 16:01 EA [id number]) Posture Evaluation Position Standing Evaluation View ant/post Comments Posture Comments slight forward head with rounded shoulder Palpation Assessment Location One Palpation Location Bilateral entire shoulders Palpation Findings Soft Tissue Tightness Tenderness PT-OP-K Range of Motion Start: 02/23/18 10:30 Freq: Status: Active Protocol: Document 02/23/18 15:38 EA (Rec: 02/23/18 16:01 EA [id number]) Cervical Spine Range of Motion Cervical Spine Active Percentage Testing Position Sitting Flexion 90 Extension 65 Rotation Left 60 Rotation Right 65 Lateral Flexion Left 60 Lateral Flexion Right 60 ROM Limitations Soft Tissue Tightness Pain Comments Pain to left mid cervical with rotation to both sides. Shoulder Goniometric Range of Motion Shoulder Measured in Degrees Right Passive Shoulder ROM WFL Yes Left Passive Shoulder ROM WFL Yes Wrist Goniometric Range of Motion Wrist Measured in Degrees Right Wrist ROM WFL Yes Left Wrist ROM WFL Yes PT-OP-L Special Tests Start: 02/23/18 10:30 Freq: Status: Active Protocol: Document 02/23/18 15:38 EA (Rec: 02/23/18 16:01 EA [id number]) Special Tests Cervical Spine Special Tests Upper Limb Tension Test Test Results Negative bilateral Foraminal Compression Test Results negative bilateral Shoulder Special Tests Elevation Impingement Test Results negative Passive ER Rotator Cuff Test Results negative bilateral Neer Impingement Test Results negatibe bilat Other Special Tests Special Tests Phalen's and Reverse Phalen's test: bilateral negative. Capillary feeling test: both negative PT-OP-M Strength Start: 02/23/18 10:30 Freq: Status: Active Protocol: Document 02/23/18 15:38 EA (Rec: 02/23/18 16:01 EA [id number]) Cervical Spine Strength Cervical Spine Manual Muscle Testing Testing Position Sitting Flexion (C1-2) 4 Good Extension 4 Good Rotation Left 4 Good Rotation Right 4 Good Lateral Flexion Left (C3) 4 Good Lateral Flexion Right (C3) 4 Good Shoulder Strength Shoulder Manual Muscle Testing Right Extension 4- Good- Abduction (C5) 3 Fair Adduction 4- Good- External Rotation 3 Fair Internal Rotation 3 Fair Horizontal Abduction 3+ Fair+ Horizontal Adduction 3+ Fair+ Reason Not Measured Pain Left Flexion 3+ Fair+ Extension 4- Good- Abduction (C5) 3 Fair Adduction 4- Good- External Rotation 3 Fair Internal Rotation 3 Fair Horizontal Abduction 3+ Fair+ Horizontal Adduction 3+ Fair+ Reason Not Measured Pain Elbow/Forearm Strength Elbow and Forearm Manual Muscle Testing Right Reason Not Measured WFL Left Reason Not Measured WFL Wrist Strength Wrist Manual Muscle Testing Right Flexion (C7) 4+ Good+ Extension (C6) 4+ Good+ Ulnar Deviation 5 Normal Radial Deviation 4+ Good+ Left Flexion (C7) 5 Normal Extension (C6) 4+ Good+ Ulnar Deviation 4+ Good+ Radial Deviation 4+ Good+ Hand Civil Preparedness Coordinator/Pinch Strength Hand Dominance Hand Dominance Right Hand Strength Left Comments Dynamometer: (L 28) (R 24) PT-OP-Q Treatments Start: 02/23/18 10:30 Freq: Status: Active Protocol: Document 03/28/18 07:32 EA (Rec: 03/28/18 08:15 EA [id number]) Cardio Equipment Upper Body Ergometer (UBE) Duration (Minutes) 5 Height 7 Gym Equipment Cable Column (Body Solid) Other- 1 Details Adjustable cable: Pull down, mid row, low row Resistance 3-4 plates Reps/Time x 12 reps x 2 sets each level Therapeutic Exercises Supine Exercises 3 Supine Exercise Name D1,D2 Side bilateral Resistance 2 lbs AW to both wrist Reps/Minutes x 10 reps Comments Right shoulder pain free range 2 Supine Exercise Name Shoulder Flexion AROM Side bilateral Resistance 1# WW Reps/Minutes x 15 reps x 2 1 Supine Exercise Name AROM; shoulder horiz ABD Side bilateral Resistance 1# Reps/Minutes x 15 reps Sitting Exercises 4 Sitting Exercise Name balloon toss with 2lbs AW to both wrist Resistance 1# AW to woth wrists Reps/Minutes x 30 secs each arm x 2 3 Sitting Exercise Name Biceps flexion Resistance 5# Reps/Minutes 12 x 2 sest 2 Sitting Exercise Name Shoulder flexion/ABD Side bilateral Resistance 1-2# Reps/Minutes 10 reps x 2 sets 1 Sitting Exercise Name Shoulder ABD pain free Side bilateral Resistance 1-2# Reps/Minutes x 2 sets Standing Exercises 6 Standing Exercise Name BODY BLADE: fronts/sides 0-75 degs Reps/Minutes x 30sec each x 2 Comments double and single arm 5 Standing Exercise Name Chest crossover Side bilateral Resistance Lv 3 Reps/Minutes x 12 reps 4 Standing Exercise Name wall T-bar shoulder press pain free range Side bilateral Resistance 4 -6 lbs Reps/Minutes x 15 reps x 2 3 Standing Exercise Name ER/IR Side bilateral Resistance Lv2 Reps/Minutes x 10 reps x 2 2 Standing Exercise Name Triceps ext Side bilateral Resistance Lv 2-3-4 Reps/Minutes x 10 reps 1 Standing Exercise Name Shoulder Ext Side bilateral Resistance Lv 4 Reps/Minutes x 10 reps PT-OP-R Modalities Start: 02/23/18 10:30 Freq: Status: Active Protocol: Document 03/28/18 07:32 EA (Rec: 03/28/18 08:15 EA [id number]) Electric Stimulation Electric Stimulation Interferential Current (IFC) Body Location Both shoulders Intensity 15 Patient Position Hooklying Combined With Heat/Cold Hot Pack PT-OP-T Assessment and Plan Start: 02/23/18 10:30 Freq: Status: Active Protocol: Document 03/28/18 07:32 EA (Rec: 03/28/18 08:15 EA [id number]) Physical Therapy Assessment Assessment Summary Assessment Pt tolerated treatment with minimal left shoulder discomfort with overhead movement. Both UE Functional strength and mobility is significantly improved with balloon toss and gripping activities. Overall patient has excellent progress. Advance as tolerated. Physical Therapy Plan Frequency and Duration Frequency of Treatment 2x/Week Next Visit Focus/Plan Next Note Type Treatment Note Next Visit Plan advance as tolerated
--- NOTE | 2018-03-31 08:32 | PT.OTN ---
Current Diagnoses Carpal tunnel syndrome, unspecified upper limb (03/31/18) Carpal tunnel syndrome, bilateral upper limbs (03/31/18) Physical Therapy Treatment Note PT-OP-A Visit Information Start: 02/23/18 10:30 Freq: Status: Active Protocol: Document 03/31/18 07:33 EA (Rec: 03/31/18 08:32 EA [id number]) Out-Patient Physical Therapy Visit Information Visit Information Visit Type Treatment Note Visit Start Time 07:30 Visit Stop Time 08:20 Total Visit Minutes 53 Visit Number 10 PT-OP-B Current Condition Start: 02/23/18 10:30 Freq: Status: Active Protocol: Document 02/23/18 12:47 EA (Rec: 02/23/18 12:59 EA [id number]) Current Condition History of Current Condition Onset Date 2 months ago History of Current Condition Present c/o bilateral hands pain started two months ago with no known reason. Pt reports both wrists and finger joints initially was sharp with any gripping activities and currently achy pain; states there were times unable to open or close the hands due to weakness and pain. Patient also reports that pain to both shoulders with weakness folllowed after the hands dysfunction. Patient denies any swelling or increased in joint temperature . Pt mentioned that 2 months ago he lost 8 lbs of weight with no apparent reason. He stated that his doctor did not bother about it as his lab works seems to be normal during last blood chem analysis. Pt mentioned that he has been a smoker for more than 50 years with no pulmonary complication in the past months; he states that he is diagnosed with hypothyroidism and is under medication. Prior Treatments and Tests Ibuprofen Future Testing and Treatments Planned None identified. 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 Functional Limitations- Mobility/Gait indep Functional Limitations- Work/School Unable to comeback to work due to pain on both shoulders and hands PT-OP-C Subjective Start: 02/23/18 10:30 Freq: Status: Active Protocol: Document 03/31/18 07:33 EA (Rec: 03/31/18 08:32 EA [id number]) OP-PT Subjective Patient Comments Patient Comments Pt reports both shoulders are getting better and is still hurts. Patient Reported Progress Improving PT-OP-E Functional Tests Start: 02/23/18 10:30 Freq: Status: Active Protocol: Document 02/23/18 16:02 EA (Rec: 02/23/18 16:06 EA [id number]) Functional Tests Apley's Scratch Test Action 1: The subject is instructed to touch the opposite shoulder with his/her hand. This motion checks Glenohumeral adduction, internal rotation , horizontal adduction and scapular protraction Action 2: The subject is instructed to place his/her arm overhead and reach behind the neck to touch his/her upper back. This motion checks Glenohumeral abduction, external rotation and scapular upward rotation and elevation. Action 3: The subject puts his/her hand on the lower back and reaches upward as far as possible. This motion checks glenohumeral adduction, internal rotation and scapular retraction with downward rotation Action 1- Left able Action 1- Right able Action 2- Left ear Action 2- Right ear Action 3- Left T10 Action 3- Right T10 PT-OP-F Manual Assessment Start: 02/23/18 10:30 Freq: Status: Active Protocol: Document 02/23/18 16:02 EA (Rec: 02/23/18 16:06 EA [id number]) Manual Assessments Soft Tissue Assessment Soft Tissue Mobility Assessment Tight ness to upper traps, scalenes, LS Joint Mobility Assessment Joint Mobility Assessment Normal joint mobility to both wrist and GH PT-OP-H Neuro Start: 02/23/18 10:30 Freq: Status: Active Protocol: Document 02/23/18 15:38 EA (Rec: 02/23/18 16:01 EA [id number]) Sensation Evaluation Gross Sensation Gross Sensation WNL Comments Summary Comments WFL in all sensory tests Deep Tendon Reflex & Clonus Assessment Deep Tendon Reflex Bilateral Tricep Deep Tendon Reflex 1+ Diminished Bilateral Bicep Deep Tendon Reflex 1+ Diminished Vital Signs Pulse 1 Pulse at Rest (bpm) 55 Pulse Assessment Method Palpation Blood Pressure Sitting Blood Pressure (90/60-120/80 mmHg) 90/50 L Blood Pressure Source Manual Cuff Left Upper Extremity PT-OP-J Posture/Palpation/Skin Start: 02/23/18 10:30 Freq: Status: Active Protocol: Document 02/23/18 15:38 EA (Rec: 02/23/18 16:01 EA [id number]) Posture Evaluation Position Standing Evaluation View ant/post Comments Posture Comments slight forward head with rounded shoulder Palpation Assessment Location One Palpation Location Bilateral entire shoulders Palpation Findings Soft Tissue Tightness Tenderness PT-OP-K Range of Motion Start: 02/23/18 10:30 Freq: Status: Active Protocol: Document 02/23/18 15:38 EA (Rec: 02/23/18 16:01 EA [id number]) Cervical Spine Range of Motion Cervical Spine Active Percentage Testing Position Sitting Flexion 90 Extension 65 Rotation Left 60 Rotation Right 65 Lateral Flexion Left 60 Lateral Flexion Right 60 ROM Limitations Soft Tissue Tightness Pain Comments Pain to left mid cervical with rotation to both sides. Shoulder Goniometric Range of Motion Shoulder Measured in Degrees Right Passive Shoulder ROM WFL Yes Left Passive Shoulder ROM WFL Yes Wrist Goniometric Range of Motion Wrist Measured in Degrees Right Wrist ROM WFL Yes Left Wrist ROM WFL Yes PT-OP-L Special Tests Start: 02/23/18 10:30 Freq: Status: Active Protocol: Document 02/23/18 15:38 EA (Rec: 02/23/18 16:01 EA [id number]) Special Tests Cervical Spine Special Tests Upper Limb Tension Test Test Results Negative bilateral Foraminal Compression Test Results negative bilateral Shoulder Special Tests Elevation Impingement Test Results negative Passive ER Rotator Cuff Test Results negative bilateral Neer Impingement Test Results negatibe bilat Other Special Tests Special Tests Phalen's and Reverse Phalen's test: bilateral negative. Capillary feeling test: both negative PT-OP-M Strength Start: 02/23/18 10:30 Freq: Status: Active Protocol: Document 02/23/18 15:38 EA (Rec: 02/23/18 16:01 EA [id number]) Cervical Spine Strength Cervical Spine Manual Muscle Testing Testing Position Sitting Flexion (C1-2) 4 Good Extension 4 Good Rotation Left 4 Good Rotation Right 4 Good Lateral Flexion Left (C3) 4 Good Lateral Flexion Right (C3) 4 Good Shoulder Strength Shoulder Manual Muscle Testing Right Extension 4- Good- Abduction (C5) 3 Fair Adduction 4- Good- External Rotation 3 Fair Internal Rotation 3 Fair Horizontal Abduction 3+ Fair+ Horizontal Adduction 3+ Fair+ Reason Not Measured Pain Left Flexion 3+ Fair+ Extension 4- Good- Abduction (C5) 3 Fair Adduction 4- Good- External Rotation 3 Fair Internal Rotation 3 Fair Horizontal Abduction 3+ Fair+ Horizontal Adduction 3+ Fair+ Reason Not Measured Pain Elbow/Forearm Strength Elbow and Forearm Manual Muscle Testing Right Reason Not Measured WFL Left Reason Not Measured WFL Wrist Strength Wrist Manual Muscle Testing Right Flexion (C7) 4+ Good+ Extension (C6) 4+ Good+ Ulnar Deviation 5 Normal Radial Deviation 4+ Good+ Left Flexion (C7) 5 Normal Extension (C6) 4+ Good+ Ulnar Deviation 4+ Good+ Radial Deviation 4+ Good+ Hand Director Of Group Sales/Pinch Strength Hand Dominance Hand Dominance Right Hand Strength Left Comments Dynamometer: (L 28) (R 24) PT-OP-Q Treatments Start: 02/23/18 10:30 Freq: Status: Active Protocol: Document 03/31/18 07:33 EA (Rec: 03/31/18 08:32 EA [id number]) Cardio Equipment Upper Body Ergometer (UBE) Duration (Minutes) 5 Height 7 Gym Equipment Cable Column (Body Solid) Other- 1 Details Adjustable cable: Pull down, mid row, low row Resistance 3-4 plates Reps/Time x 12 reps x 2 sets each level Therapeutic Exercises Standing Exercises 6 Standing Exercise Name BODY BLADE: fronts/sides 0-75 degs Reps/Minutes x 30sec each x 2 Comments double and single arm 5 Standing Exercise Name Chest crossover Side bilateral Resistance Lv 3-4 Reps/Minutes x 12 reps 4 Standing Exercise Name wall T-bar shoulder press pain free range Side bilateral Resistance 4 -6 lbs Reps/Minutes x 15 reps x 2 3 Standing Exercise Name ER/IR Side bilateral Resistance Lv2 Reps/Minutes x 10 reps x 2 2 Standing Exercise Name Triceps ext Side bilateral Resistance Lv 2-3-4 Reps/Minutes x 10 reps 1 Standing Exercise Name Shoulder Ext Side bilateral Resistance Lv 4 Reps/Minutes x 10 reps Manual Therapy Treatment Soft Tissue Mobilization 2 Body Location both hands Mobilization Type Sustained Pressure Other Intensity/Depth Moderate Comments Kneading. 1 Body Location Both shoulders Mobilization Type Rolling Sustained Pressure Trigger Point Release Intensity/Depth Moderate Body Position Supine Manual Techniques 1 Type Passive stretch Comments both wrists and fingers. PT-OP-R Modalities Start: 02/23/18 10:30 Freq: Status: Active Protocol: Document 03/31/18 07:33 EA (Rec: 03/31/18 08:32 EA [id number]) Paraffin Bath Treatment Right Hand Treatment Technique Immersion Bath Number Wax Layers (layers) 6 Duration (minutes) 10 Left Hand Treatment Technique Immersion Bath Number Wax Layers (layers) 6 Duration (minutes) 10 Patient Tolerance Good PT-OP-T Assessment and Plan Start: 02/23/18 10:30 Freq: Status: Active Protocol: Document 03/31/18 07:33 EA (Rec: 03/31/18 08:32 EA [id number]) Physical Therapy Assessment Assessment Summary Assessment Improved shoulder strength noted at this time with no discomfort on both shoulder noted. Discomfort noted with both hands manual but tolerated. Patient si progressing very well. Physical Therapy Plan Next Visit Focus/Plan Next Note Type Treatment Note Next Visit Plan focus on both hands at next session.
--- NOTE | 2018-04-04 10:28 | PT.OTN ---
Current Diagnoses Carpal tunnel syndrome, unspecified upper limb (04/04/18) Carpal tunnel syndrome, bilateral upper limbs (04/04/18) Physical Therapy Treatment Note PT-OP-A Visit Information Start: 02/23/18 10:30 Freq: Status: Active Protocol: Document 04/04/18 07:31 EA (Rec: 04/04/18 08:21 EA [id number]) Out-Patient Physical Therapy Visit Information Visit Information Visit Type Treatment Note Visit Start Time 07:30 Visit Stop Time 08:20 Total Visit Minutes 53 Visit Number 12 PT-OP-B Current Condition Start: 02/23/18 10:30 Freq: Status: Active Protocol: Document 02/23/18 12:47 EA (Rec: 02/23/18 12:59 EA [id number]) Current Condition History of Current Condition Onset Date 2 months ago History of Current Condition Present c/o bilateral hands pain started two months ago with no known reason. Pt reports both wrists and finger joints initially was sharp with any gripping activities and currently achy pain; states there were times unable to open or close the hands due to weakness and pain. Patient also reports that pain to both shoulders with weakness folllowed after the hands dysfunction. Patient denies any swelling or increased in joint temperature . Pt mentioned that 2 months ago he lost 8 lbs of weight with no apparent reason. He stated that his doctor did not bother about it as his lab works seems to be normal during last blood chem analysis. Pt mentioned that he has been a smoker for more than 50 years with no pulmonary complication in the past months; he states that he is diagnosed with hypothyroidism and is under medication. Prior Treatments and Tests Ibuprofen Future Testing and Treatments Planned None identified. 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 Functional Limitations- Mobility/Gait indep Functional Limitations- Work/School Unable to comeback to work due to pain on both shoulders and hands PT-OP-C Subjective Start: 02/23/18 10:30 Freq: Status: Active Protocol: Document 04/04/18 07:31 EA (Rec: 04/04/18 08:21 EA [id number]) OP-PT Subjective Patient Comments Patient Comments Pt reports last treatments to both hands helps and both shoulder are getting better. Patient Reported Progress Improving PT-OP-E Functional Tests Start: 02/23/18 10:30 Freq: Status: Active Protocol: Document 02/23/18 16:02 EA (Rec: 02/23/18 16:06 EA [id number]) Functional Tests Apley's Scratch Test Action 1: The subject is instructed to touch the opposite shoulder with his/her hand. This motion checks Glenohumeral adduction, internal rotation , horizontal adduction and scapular protraction Action 2: The subject is instructed to place his/her arm overhead and reach behind the neck to touch his/her upper back. This motion checks Glenohumeral abduction, external rotation and scapular upward rotation and elevation. Action 3: The subject puts his/her hand on the lower back and reaches upward as far as possible. This motion checks glenohumeral adduction, internal rotation and scapular retraction with downward rotation Action 1- Left able Action 1- Right able Action 2- Left ear Action 2- Right ear Action 3- Left T10 Action 3- Right T10 PT-OP-F Manual Assessment Start: 02/23/18 10:30 Freq: Status: Active Protocol: Document 02/23/18 16:02 EA (Rec: 02/23/18 16:06 EA [id number]) Manual Assessments Soft Tissue Assessment Soft Tissue Mobility Assessment Tight ness to upper traps, scalenes, LS Joint Mobility Assessment Joint Mobility Assessment Normal joint mobility to both wrist and GH PT-OP-H Neuro Start: 02/23/18 10:30 Freq: Status: Active Protocol: Document 02/23/18 15:38 EA (Rec: 02/23/18 16:01 EA [id number]) Sensation Evaluation Gross Sensation Gross Sensation WNL Comments Summary Comments WFL in all sensory tests Deep Tendon Reflex & Clonus Assessment Deep Tendon Reflex Bilateral Tricep Deep Tendon Reflex 1+ Diminished Bilateral Bicep Deep Tendon Reflex 1+ Diminished Vital Signs Pulse 1 Pulse at Rest (bpm) 55 Pulse Assessment Method Palpation Blood Pressure Sitting Blood Pressure (90/60-120/80 mmHg) 90/50 L Blood Pressure Source Manual Cuff Left Upper Extremity PT-OP-J Posture/Palpation/Skin Start: 02/23/18 10:30 Freq: Status: Active Protocol: Document 02/23/18 15:38 EA (Rec: 02/23/18 16:01 EA [id number]) Posture Evaluation Position Standing Evaluation View ant/post Comments Posture Comments slight forward head with rounded shoulder Palpation Assessment Location One Palpation Location Bilateral entire shoulders Palpation Findings Soft Tissue Tightness Tenderness PT-OP-K Range of Motion Start: 02/23/18 10:30 Freq: Status: Active Protocol: Document 02/23/18 15:38 EA (Rec: 02/23/18 16:01 EA [id number]) Cervical Spine Range of Motion Cervical Spine Active Percentage Testing Position Sitting Flexion 90 Extension 65 Rotation Left 60 Rotation Right 65 Lateral Flexion Left 60 Lateral Flexion Right 60 ROM Limitations Soft Tissue Tightness Pain Comments Pain to left mid cervical with rotation to both sides. Shoulder Goniometric Range of Motion Shoulder Measured in Degrees Right Passive Shoulder ROM WFL Yes Left Passive Shoulder ROM WFL Yes Wrist Goniometric Range of Motion Wrist Measured in Degrees Right Wrist ROM WFL Yes Left Wrist ROM WFL Yes PT-OP-L Special Tests Start: 02/23/18 10:30 Freq: Status: Active Protocol: Document 02/23/18 15:38 EA (Rec: 02/23/18 16:01 EA [id number]) Special Tests Cervical Spine Special Tests Upper Limb Tension Test Test Results Negative bilateral Foraminal Compression Test Results negative bilateral Shoulder Special Tests Elevation Impingement Test Results negative Passive ER Rotator Cuff Test Results negative bilateral Neer Impingement Test Results negatibe bilat Other Special Tests Special Tests Phalen's and Reverse Phalen's test: bilateral negative. Capillary feeling test: both negative PT-OP-M Strength Start: 02/23/18 10:30 Freq: Status: Active Protocol: Document 02/23/18 15:38 EA (Rec: 02/23/18 16:01 EA [id number]) Cervical Spine Strength Cervical Spine Manual Muscle Testing Testing Position Sitting Flexion (C1-2) 4 Good Extension 4 Good Rotation Left 4 Good Rotation Right 4 Good Lateral Flexion Left (C3) 4 Good Lateral Flexion Right (C3) 4 Good Shoulder Strength Shoulder Manual Muscle Testing Right Extension 4- Good- Abduction (C5) 3 Fair Adduction 4- Good- External Rotation 3 Fair Internal Rotation 3 Fair Horizontal Abduction 3+ Fair+ Horizontal Adduction 3+ Fair+ Reason Not Measured Pain Left Flexion 3+ Fair+ Extension 4- Good- Abduction (C5) 3 Fair Adduction 4- Good- External Rotation 3 Fair Internal Rotation 3 Fair Horizontal Abduction 3+ Fair+ Horizontal Adduction 3+ Fair+ Reason Not Measured Pain Elbow/Forearm Strength Elbow and Forearm Manual Muscle Testing Right Reason Not Measured WFL Left Reason Not Measured WFL Wrist Strength Wrist Manual Muscle Testing Right Flexion (C7) 4+ Good+ Extension (C6) 4+ Good+ Ulnar Deviation 5 Normal Radial Deviation 4+ Good+ Left Flexion (C7) 5 Normal Extension (C6) 4+ Good+ Ulnar Deviation 4+ Good+ Radial Deviation 4+ Good+ Hand Community Planning Technician/Pinch Strength Hand Dominance Hand Dominance Right Hand Strength Left Comments Dynamometer: (L 28) (R 24) PT-OP-Q Treatments Start: 02/23/18 10:30 Freq: Status: Active Protocol: Document 04/04/18 07:31 EA (Rec: 04/04/18 08:21 EA [id number]) Cardio Equipment Upper Body Ergometer (UBE) Duration (Minutes) 5 Height 7 Gym Equipment Cable Column (Body Solid) Other- 1 Details Adjustable cable: Pull down, mid row, low row Resistance 3-4-5 plates Reps/Time x 12 reps x 2 sets each level Therapeutic Exercises Sitting Exercises 4 Sitting Exercise Name balloon toss with 2lbs AW to both wrist Resistance 1# AW to woth wrists Reps/Minutes x 30 secs each arm x 2 3 Sitting Exercise Name Biceps flexion Resistance 5# Reps/Minutes 12 x 2 set 2 Sitting Exercise Name Shoulder flexion/ABD Side bilateral Resistance 1-2# Reps/Minutes 10 reps x 2 sets Standing Exercises 6 Standing Exercise Name BODY BLADE: fronts/sides 0-75 degs Reps/Minutes x 30sec each x 2 Comments double and single arm 5 Standing Exercise Name Chest crossover Side bilateral Resistance Lv 3-4 Reps/Minutes x 12 reps 4 Standing Exercise Name wall T-bar shoulder press pain free range Side bilateral Resistance 4 -6 lbs Reps/Minutes x 15 reps x 2 3 Standing Exercise Name ER/IR Side bilateral Resistance Lv2 Reps/Minutes x 10 reps x 2 2 Standing Exercise Name Triceps ext Side bilateral Resistance Lv 2-3-4 Reps/Minutes x 10 reps 1 Standing Exercise Name Shoulder Ext Side bilateral Resistance Lv 4 Reps/Minutes x 10 reps Manual Therapy Treatment Soft Tissue Mobilization 2 Body Location both hands Mobilization Type Sustained Pressure Other Intensity/Depth Moderate Comments Kneading. 1 Body Location Both shoulders Mobilization Type Rolling Sustained Pressure Trigger Point Release Intensity/Depth Moderate Body Position Supine Manual Techniques 1 Type Passive stretch Comments both wrists and fingers. PT-OP-R Modalities Start: 02/23/18 10:30 Freq: Status: Active Protocol: Document 04/04/18 07:31 EA (Rec: 04/04/18 08:21 EA [id number]) Paraffin Bath Treatment Right Hand Treatment Technique Immersion Bath Number Wax Layers (layers) 6 Duration (minutes) 10 Left Hand Treatment Technique Immersion Bath Number Wax Layers (layers) 6 Duration (minutes) 10 Patient Tolerance Good PT-OP-T Assessment and Plan Start: 02/23/18 10:30 Freq: Status: Active Protocol: Document 04/04/18 07:31 EA (Rec: 04/04/18 08:21 EA [id number]) Physical Therapy Assessment Assessment Summary Assessment Pt tolerated treatment well and is progressing. Advance as tolerated. Physical Therapy Plan Next Visit Focus/Plan Next Note Type Treatment Note Next Visit Plan focus on both hands at next session.
--- NOTE | 2018-04-07 09:56 | PT.OTN ---
Current Diagnoses Carpal tunnel syndrome, unspecified upper limb (04/07/18) Carpal tunnel syndrome, bilateral upper limbs (04/07/18) Physical Therapy Treatment Note PT-OP-A Visit Information Start: 02/23/18 10:30 Freq: Status: Active Protocol: Document 04/07/18 07:34 EA (Rec: 04/07/18 08:19 EA [id number]) Out-Patient Physical Therapy Visit Information Visit Information Visit Type Treatment Note Visit Start Time 07:30 Visit Stop Time 08:20 Total Visit Minutes 55 Visit Number 13 PT-OP-B Current Condition Start: 02/23/18 10:30 Freq: Status: Active Protocol: Document 02/23/18 12:47 EA (Rec: 02/23/18 12:59 EA [id number]) Current Condition History of Current Condition Onset Date 2 months ago History of Current Condition Present c/o bilateral hands pain started two months ago with no known reason. Pt reports both wrists and finger joints initially was sharp with any gripping activities and currently achy pain; states there were times unable to open or close the hands due to weakness and pain. Patient also reports that pain to both shoulders with weakness folllowed after the hands dysfunction. Patient denies any swelling or increased in joint temperature . Pt mentioned that 2 months ago he lost 8 lbs of weight with no apparent reason. He stated that his doctor did not bother about it as his lab works seems to be normal during last blood chem analysis. Pt mentioned that he has been a smoker for more than 50 years with no pulmonary complication in the past months; he states that he is diagnosed with hypothyroidism and is under medication. Prior Treatments and Tests Ibuprofen Future Testing and Treatments Planned None identified. 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 Functional Limitations- Mobility/Gait indep Functional Limitations- Work/School Unable to comeback to work due to pain on both shoulders and hands PT-OP-C Subjective Start: 02/23/18 10:30 Freq: Status: Active Protocol: Document 04/07/18 07:34 EA (Rec: 04/07/18 08:19 EA [id number]) OP-PT Subjective Patient Comments Patient Comments My wrists and thumbs is quite sore today; states shoulder is getiing better. PT-OP-E Functional Tests Start: 02/23/18 10:30 Freq: Status: Active Protocol: Document 02/23/18 16:02 EA (Rec: 02/23/18 16:06 EA [id number]) Functional Tests Apley's Scratch Test Action 1: The subject is instructed to touch the opposite shoulder with his/her hand. This motion checks Glenohumeral adduction, internal rotation , horizontal adduction and scapular protraction Action 2: The subject is instructed to place his/her arm overhead and reach behind the neck to touch his/her upper back. This motion checks Glenohumeral abduction, external rotation and scapular upward rotation and elevation. Action 3: The subject puts his/her hand on the lower back and reaches upward as far as possible. This motion checks glenohumeral adduction, internal rotation and scapular retraction with downward rotation Action 1- Left able Action 1- Right able Action 2- Left ear Action 2- Right ear Action 3- Left T10 Action 3- Right T10 PT-OP-F Manual Assessment Start: 02/23/18 10:30 Freq: Status: Active Protocol: Document 02/23/18 16:02 EA (Rec: 02/23/18 16:06 EA [id number]) Manual Assessments Soft Tissue Assessment Soft Tissue Mobility Assessment Tight ness to upper traps, scalenes, LS Joint Mobility Assessment Joint Mobility Assessment Normal joint mobility to both wrist and GH PT-OP-H Neuro Start: 02/23/18 10:30 Freq: Status: Active Protocol: Document 02/23/18 15:38 EA (Rec: 02/23/18 16:01 EA [id number]) Sensation Evaluation Gross Sensation Gross Sensation WNL Comments Summary Comments WFL in all sensory tests Deep Tendon Reflex & Clonus Assessment Deep Tendon Reflex Bilateral Tricep Deep Tendon Reflex 1+ Diminished Bilateral Bicep Deep Tendon Reflex 1+ Diminished Vital Signs Pulse 1 Pulse at Rest (bpm) 55 Pulse Assessment Method Palpation Blood Pressure Sitting Blood Pressure (90/60-120/80 mmHg) 90/50 L Blood Pressure Source Manual Cuff Left Upper Extremity PT-OP-J Posture/Palpation/Skin Start: 02/23/18 10:30 Freq: Status: Active Protocol: Document 02/23/18 15:38 EA (Rec: 02/23/18 16:01 EA [id number]) Posture Evaluation Position Standing Evaluation View ant/post Comments Posture Comments slight forward head with rounded shoulder Palpation Assessment Location One Palpation Location Bilateral entire shoulders Palpation Findings Soft Tissue Tightness Tenderness PT-OP-K Range of Motion Start: 02/23/18 10:30 Freq: Status: Active Protocol: Document 02/23/18 15:38 EA (Rec: 02/23/18 16:01 EA [id number]) Cervical Spine Range of Motion Cervical Spine Active Percentage Testing Position Sitting Flexion 90 Extension 65 Rotation Left 60 Rotation Right 65 Lateral Flexion Left 60 Lateral Flexion Right 60 ROM Limitations Soft Tissue Tightness Pain Comments Pain to left mid cervical with rotation to both sides. Shoulder Goniometric Range of Motion Shoulder Measured in Degrees Right Passive Shoulder ROM WFL Yes Left Passive Shoulder ROM WFL Yes Wrist Goniometric Range of Motion Wrist Measured in Degrees Right Wrist ROM WFL Yes Left Wrist ROM WFL Yes PT-OP-L Special Tests Start: 02/23/18 10:30 Freq: Status: Active Protocol: Document 02/23/18 15:38 EA (Rec: 02/23/18 16:01 EA [id number]) Special Tests Cervical Spine Special Tests Upper Limb Tension Test Test Results Negative bilateral Foraminal Compression Test Results negative bilateral Shoulder Special Tests Elevation Impingement Test Results negative Passive ER Rotator Cuff Test Results negative bilateral Neer Impingement Test Results negatibe bilat Other Special Tests Special Tests Phalen's and Reverse Phalen's test: bilateral negative. Capillary feeling test: both negative PT-OP-M Strength Start: 02/23/18 10:30 Freq: Status: Active Protocol: Document 02/23/18 15:38 EA (Rec: 02/23/18 16:01 EA [id number]) Cervical Spine Strength Cervical Spine Manual Muscle Testing Testing Position Sitting Flexion (C1-2) 4 Good Extension 4 Good Rotation Left 4 Good Rotation Right 4 Good Lateral Flexion Left (C3) 4 Good Lateral Flexion Right (C3) 4 Good Shoulder Strength Shoulder Manual Muscle Testing Right Extension 4- Good- Abduction (C5) 3 Fair Adduction 4- Good- External Rotation 3 Fair Internal Rotation 3 Fair Horizontal Abduction 3+ Fair+ Horizontal Adduction 3+ Fair+ Reason Not Measured Pain Left Flexion 3+ Fair+ Extension 4- Good- Abduction (C5) 3 Fair Adduction 4- Good- External Rotation 3 Fair Internal Rotation 3 Fair Horizontal Abduction 3+ Fair+ Horizontal Adduction 3+ Fair+ Reason Not Measured Pain Elbow/Forearm Strength Elbow and Forearm Manual Muscle Testing Right Reason Not Measured WFL Left Reason Not Measured WFL Wrist Strength Wrist Manual Muscle Testing Right Flexion (C7) 4+ Good+ Extension (C6) 4+ Good+ Ulnar Deviation 5 Normal Radial Deviation 4+ Good+ Left Flexion (C7) 5 Normal Extension (C6) 4+ Good+ Ulnar Deviation 4+ Good+ Radial Deviation 4+ Good+ Hand Recycling Tech/Pinch Strength Hand Dominance Hand Dominance Right Hand Strength Left Comments Dynamometer: (L 28) (R 24) PT-OP-Q Treatments Start: 02/23/18 10:30 Freq: Status: Active Protocol: Document 04/07/18 07:34 EA (Rec: 04/07/18 08:19 EA [id number]) Cardio Equipment Upper Body Ergometer (UBE) Duration (Minutes) 5 Height 7 Gym Equipment Cable Column (Body Solid) Other- 2 Details Cable cross over Resistance 10 lbs Reps/Time x 2 sets Other- 1 Details Adjustable cable: sit to stand row Resistance 30-40lbs Reps/Time x 12 reps x 2 Therapeutic Exercises Standing Exercises 7 Standing Exercise Name Ball throwing activites ( double to single arm) Side bilateral Reps/Minutes x 5 mins 6 Standing Exercise Name BODY BLADE: fronts/sides 0-75 degs Reps/Minutes x 30sec each x 2 Comments double and single arm 5 Standing Exercise Name Chest crossover Side bilateral Resistance Lv 3-4 Reps/Minutes x 12 reps 4 Standing Exercise Name wall T-bar shoulder press pain free range Side bilateral Resistance 4 -6 lbs Reps/Minutes x 15 reps x 2 3 Standing Exercise Name ER/IR Side bilateral Resistance Lv2 Reps/Minutes x 10 reps x 2 2 Standing Exercise Name Triceps ext Side bilateral Resistance Lv 2-3-4 Reps/Minutes x 10 reps 1 Standing Exercise Name Shoulder Ext Side bilateral Resistance Lv 4 Reps/Minutes x 10 reps Manual Therapy Treatment Soft Tissue Mobilization 2 Body Location both hands Mobilization Type Sustained Pressure Other Intensity/Depth Moderate Comments Kneading. 1 Body Location Both shoulders Mobilization Type Rolling Sustained Pressure Trigger Point Release Intensity/Depth Moderate Body Position Supine PT-OP-R Modalities Start: 02/23/18 10:30 Freq: Status: Active Protocol: Document 04/07/18 07:34 EA (Rec: 04/07/18 08:19 EA [id number]) Paraffin Bath Treatment Left Hand Treatment Technique Immersion Bath Number Wax Layers (layers) 6 Duration (minutes) 10 Patient Tolerance Good PT-OP-T Assessment and Plan Start: 02/23/18 10:30 Freq: Status: Active Protocol: Document 04/07/18 07:34 EA (Rec: 04/07/18 08:19 EA [id number]) Physical Therapy Assessment Assessment Summary Assessment Improved shoulder mobility with no discomfort during therex; 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 Physical Therapy Plan Next Visit Focus/Plan Next Note Type Treatment Note
--- NOTE | 2018-04-11 09:51 | PT.OTN ---
Current Diagnoses Carpal tunnel syndrome, unspecified upper limb (04/11/18) Carpal tunnel syndrome, bilateral upper limbs (04/11/18) Physical Therapy Treatment Note PT-OP-A Visit Information Start: 02/23/18 10:30 Freq: Status: Active Protocol: Document 04/11/18 07:39 EA (Rec: 04/11/18 07:42 EA [id number]) Out-Patient Physical Therapy Visit Information Visit Information Visit Type Treatment Note Visit Start Time 07:30 Visit Stop Time 08:20 Total Visit Minutes 55 Visit Number 14 PT-OP-B Current Condition Start: 02/23/18 10:30 Freq: Status: Active Protocol: Document 02/23/18 12:47 EA (Rec: 02/23/18 12:59 EA [id number]) Current Condition History of Current Condition Onset Date 2 months ago History of Current Condition Present c/o bilateral hands pain started two months ago with no known reason. Pt reports both wrists and finger joints initially was sharp with any gripping activities and currently achy pain; states there were times unable to open or close the hands due to weakness and pain. Patient also reports that pain to both shoulders with weakness folllowed after the hands dysfunction. Patient denies any swelling or increased in joint temperature . Pt mentioned that 2 months ago he lost 8 lbs of weight with no apparent reason. He stated that his doctor did not bother about it as his lab works seems to be normal during last blood chem analysis. Pt mentioned that he has been a smoker for more than 50 years with no pulmonary complication in the past months; he states that he is diagnosed with hypothyroidism and is under medication. Prior Treatments and Tests Ibuprofen Future Testing and Treatments Planned None identified. 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 Functional Limitations- Mobility/Gait indep Functional Limitations- Work/School Unable to comeback to work due to pain on both shoulders and hands PT-OP-C Subjective Start: 02/23/18 10:30 Freq: Status: Active Protocol: Document 04/11/18 07:39 EA (Rec: 04/11/18 07:42 EA [id number]) OP-PT Subjective Patient Comments Patient Comments Pt. reports that pain to shoulders ls muich better; states thumb is bothering him. PT-OP-E Functional Tests Start: 02/23/18 10:30 Freq: Status: Active Protocol: Document 02/23/18 16:02 EA (Rec: 02/23/18 16:06 EA [id number]) Functional Tests Apley's Scratch Test Action 1: The subject is instructed to touch the opposite shoulder with his/her hand. This motion checks Glenohumeral adduction, internal rotation , horizontal adduction and scapular protraction Action 2: The subject is instructed to place his/her arm overhead and reach behind the neck to touch his/her upper back. This motion checks Glenohumeral abduction, external rotation and scapular upward rotation and elevation. Action 3: The subject puts his/her hand on the lower back and reaches upward as far as possible. This motion checks glenohumeral adduction, internal rotation and scapular retraction with downward rotation Action 1- Left able Action 1- Right able Action 2- Left ear Action 2- Right ear Action 3- Left T10 Action 3- Right T10 PT-OP-F Manual Assessment Start: 02/23/18 10:30 Freq: Status: Active Protocol: Document 02/23/18 16:02 EA (Rec: 02/23/18 16:06 EA [id number]) Manual Assessments Soft Tissue Assessment Soft Tissue Mobility Assessment Tight ness to upper traps, scalenes, LS Joint Mobility Assessment Joint Mobility Assessment Normal joint mobility to both wrist and GH PT-OP-H Neuro Start: 02/23/18 10:30 Freq: Status: Active Protocol: Document 02/23/18 15:38 EA (Rec: 02/23/18 16:01 EA [id number]) Sensation Evaluation Gross Sensation Gross Sensation WNL Comments Summary Comments WFL in all sensory tests Deep Tendon Reflex & Clonus Assessment Deep Tendon Reflex Bilateral Tricep Deep Tendon Reflex 1+ Diminished Bilateral Bicep Deep Tendon Reflex 1+ Diminished Vital Signs Pulse 1 Pulse at Rest (bpm) 55 Pulse Assessment Method Palpation Blood Pressure Sitting Blood Pressure (90/60-120/80 mmHg) 90/50 L Blood Pressure Source Manual Cuff Left Upper Extremity PT-OP-J Posture/Palpation/Skin Start: 02/23/18 10:30 Freq: Status: Active Protocol: Document 02/23/18 15:38 EA (Rec: 02/23/18 16:01 EA [id number]) Posture Evaluation Position Standing Evaluation View ant/post Comments Posture Comments slight forward head with rounded shoulder Palpation Assessment Location One Palpation Location Bilateral entire shoulders Palpation Findings Soft Tissue Tightness Tenderness PT-OP-K Range of Motion Start: 02/23/18 10:30 Freq: Status: Active Protocol: Document 02/23/18 15:38 EA (Rec: 02/23/18 16:01 EA [id number]) Cervical Spine Range of Motion Cervical Spine Active Percentage Testing Position Sitting Flexion 90 Extension 65 Rotation Left 60 Rotation Right 65 Lateral Flexion Left 60 Lateral Flexion Right 60 ROM Limitations Soft Tissue Tightness Pain Comments Pain to left mid cervical with rotation to both sides. Shoulder Goniometric Range of Motion Shoulder Measured in Degrees Right Passive Shoulder ROM WFL Yes Left Passive Shoulder ROM WFL Yes Wrist Goniometric Range of Motion Wrist Measured in Degrees Right Wrist ROM WFL Yes Left Wrist ROM WFL Yes PT-OP-L Special Tests Start: 02/23/18 10:30 Freq: Status: Active Protocol: Document 02/23/18 15:38 EA (Rec: 02/23/18 16:01 EA [id number]) Special Tests Cervical Spine Special Tests Upper Limb Tension Test Test Results Negative bilateral Foraminal Compression Test Results negative bilateral Shoulder Special Tests Elevation Impingement Test Results negative Passive ER Rotator Cuff Test Results negative bilateral Neer Impingement Test Results negatibe bilat Other Special Tests Special Tests Phalen's and Reverse Phalen's test: bilateral negative. Capillary feeling test: both negative PT-OP-M Strength Start: 02/23/18 10:30 Freq: Status: Active Protocol: Document 02/23/18 15:38 EA (Rec: 02/23/18 16:01 EA [id number]) Cervical Spine Strength Cervical Spine Manual Muscle Testing Testing Position Sitting Flexion (C1-2) 4 Good Extension 4 Good Rotation Left 4 Good Rotation Right 4 Good Lateral Flexion Left (C3) 4 Good Lateral Flexion Right (C3) 4 Good Shoulder Strength Shoulder Manual Muscle Testing Right Extension 4- Good- Abduction (C5) 3 Fair Adduction 4- Good- External Rotation 3 Fair Internal Rotation 3 Fair Horizontal Abduction 3+ Fair+ Horizontal Adduction 3+ Fair+ Reason Not Measured Pain Left Flexion 3+ Fair+ Extension 4- Good- Abduction (C5) 3 Fair Adduction 4- Good- External Rotation 3 Fair Internal Rotation 3 Fair Horizontal Abduction 3+ Fair+ Horizontal Adduction 3+ Fair+ Reason Not Measured Pain Elbow/Forearm Strength Elbow and Forearm Manual Muscle Testing Right Reason Not Measured WFL Left Reason Not Measured WFL Wrist Strength Wrist Manual Muscle Testing Right Flexion (C7) 4+ Good+ Extension (C6) 4+ Good+ Ulnar Deviation 5 Normal Radial Deviation 4+ Good+ Left Flexion (C7) 5 Normal Extension (C6) 4+ Good+ Ulnar Deviation 4+ Good+ Radial Deviation 4+ Good+ Hand Page Technician/Pinch Strength Hand Dominance Hand Dominance Right Hand Strength Left Comments Dynamometer: (L 28) (R 24) PT-OP-Q Treatments Start: 02/23/18 10:30 Freq: Status: Active Protocol: Document 04/11/18 08:21 EA (Rec: 04/11/18 08:23 EA [id number]) Gym Equipment Cable Column (Body Solid) Other- 2 Details Cable cross over Resistance 10-15 lbs Reps/Time x 2 sets Other- 1 Details Adjustable cable: sit to stand row Resistance 30-40lbs Reps/Time x 12 reps x 2 Therapeutic Exercises Prone Exercises 1 Prone Exercise Name T-Ball shoulder hori ABD/ shoulde T- and Y Resistance 1# wrist wghts Reps/Minutes x 12 reps Sitting Exercises 3 Sitting Exercise Name Biceps flexion Side bilateral Resistance 5-7# Reps/Minutes 12 x 2 set 1 Sitting Exercise Name Shoulder ABD pain free Side bilateral Resistance 1-2# Reps/Minutes x 2 sets Standing Exercises 7 Standing Exercise Name Ball throwing activites ( double to single arm) Side bilateral Reps/Minutes x 5 mins 6 Standing Exercise Name BODY BLADE: fronts/sides 0-75 degs Reps/Minutes x 30sec each x 2 Comments double and single arm 5 Standing Exercise Name Chest crossover Side bilateral Resistance Lv 3-4 Reps/Minutes x 12 reps 4 Standing Exercise Name wall T-bar shoulder press pain free range Side bilateral Resistance 4 -6 lbs Reps/Minutes x 15 reps x 2 3 Standing Exercise Name ER/IR Side bilateral Resistance Lv2 Reps/Minutes x 10 reps x 2 2 Standing Exercise Name Triceps ext Side bilateral Resistance Lv 2-3-4 Reps/Minutes x 10 reps 1 Standing Exercise Name Shoulder Ext Side bilateral Resistance Lv 4 Reps/Minutes x 10 reps Manual Therapy Treatment Soft Tissue Mobilization 2 Body Location both hands Mobilization Type Sustained Pressure Other Intensity/Depth Moderate Comments Kneading. PT-OP-R Modalities Start: 02/23/18 10:30 Freq: Status: Active Protocol: Document 04/11/18 08:20 EA (Rec: 04/11/18 08:21 EA [id number]) Paraffin Bath Treatment Right Hand Treatment Technique Immersion Bath Number Wax Layers (layers) 6 Duration (minutes) 10 Left Hand Treatment Technique Immersion Bath Number Wax Layers (layers) 6 Duration (minutes) 10 Patient Tolerance Good PT-OP-T Assessment and Plan Start: 02/23/18 10:30 Freq: Status: Active Protocol: Document 04/11/18 09:46 EA (Rec: 04/11/18 09:51 EA [id number]) Physical Therapy Assessment Assessment Summary Assessment Decreased both thumb tenderness after heat and manual PT. Improved shoulder strength noted at this time. Physical Therapy Plan Next Visit Focus/Plan Next Note Type Treatment Note Next Visit Plan focus on both hands at next session.
--- NOTE | 2018-04-14 10:04 | PT.OTN ---
Current Diagnoses Carpal tunnel syndrome, unspecified upper limb (04/14/18) Carpal tunnel syndrome, bilateral upper limbs (04/14/18) Physical Therapy Treatment Note PT-OP-A Visit Information Start: 02/23/18 10:30 Freq: Status: Active Protocol: Document 04/14/18 07:35 EA (Rec: 04/14/18 07:39 EA [id number]) Out-Patient Physical Therapy Visit Information Visit Information Visit Type Treatment Note Visit Start Time 07:30 Visit Stop Time 08:20 Total Visit Minutes 55 Visit Number 15 PT-OP-B Current Condition Start: 02/23/18 10:30 Freq: Status: Active Protocol: Document 02/23/18 12:47 EA (Rec: 02/23/18 12:59 EA [id number]) Current Condition History of Current Condition Onset Date 2 months ago History of Current Condition Present c/o bilateral hands pain started two months ago with no known reason. Pt reports both wrists and finger joints initially was sharp with any gripping activities and currently achy pain; states there were times unable to open or close the hands due to weakness and pain. Patient also reports that pain to both shoulders with weakness folllowed after the hands dysfunction. Patient denies any swelling or increased in joint temperature . Pt mentioned that 2 months ago he lost 8 lbs of weight with no apparent reason. He stated that his doctor did not bother about it as his lab works seems to be normal during last blood chem analysis. Pt mentioned that he has been a smoker for more than 50 years with no pulmonary complication in the past months; he states that he is diagnosed with hypothyroidism and is under medication. Prior Treatments and Tests Ibuprofen Future Testing and Treatments Planned None identified. 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 Functional Limitations- Mobility/Gait indep Functional Limitations- Work/School Unable to comeback to work due to pain on both shoulders and hands PT-OP-C Subjective Start: 02/23/18 10:30 Freq: Status: Active Protocol: Document 04/14/18 07:35 EA (Rec: 04/14/18 07:39 EA [id number]) OP-PT Subjective Patient Comments Patient Comments My shoulder are pretty normal ; my hand are still sore and painful specially the thumbs. Patient Reported Progress Improving PT-OP-E Functional Tests Start: 02/23/18 10:30 Freq: Status: Active Protocol: Document 02/23/18 16:02 EA (Rec: 02/23/18 16:06 EA [id number]) Functional Tests Apley's Scratch Test Action 1: The subject is instructed to touch the opposite shoulder with his/her hand. This motion checks Glenohumeral adduction, internal rotation , horizontal adduction and scapular protraction Action 2: The subject is instructed to place his/her arm overhead and reach behind the neck to touch his/her upper back. This motion checks Glenohumeral abduction, external rotation and scapular upward rotation and elevation. Action 3: The subject puts his/her hand on the lower back and reaches upward as far as possible. This motion checks glenohumeral adduction, internal rotation and scapular retraction with downward rotation Action 1- Left able Action 1- Right able Action 2- Left ear Action 2- Right ear Action 3- Left T10 Action 3- Right T10 PT-OP-F Manual Assessment Start: 02/23/18 10:30 Freq: Status: Active Protocol: Document 02/23/18 16:02 EA (Rec: 02/23/18 16:06 EA [id number]) Manual Assessments Soft Tissue Assessment Soft Tissue Mobility Assessment Tight ness to upper traps, scalenes, LS Joint Mobility Assessment Joint Mobility Assessment Normal joint mobility to both wrist and GH PT-OP-H Neuro Start: 02/23/18 10:30 Freq: Status: Active Protocol: Document 02/23/18 15:38 EA (Rec: 02/23/18 16:01 EA [id number]) Sensation Evaluation Gross Sensation Gross Sensation WNL Comments Summary Comments WFL in all sensory tests Deep Tendon Reflex & Clonus Assessment Deep Tendon Reflex Bilateral Tricep Deep Tendon Reflex 1+ Diminished Bilateral Bicep Deep Tendon Reflex 1+ Diminished Vital Signs Pulse 1 Pulse at Rest (bpm) 55 Pulse Assessment Method Palpation Blood Pressure Sitting Blood Pressure (90/60-120/80 mmHg) 90/50 L Blood Pressure Source Manual Cuff Left Upper Extremity PT-OP-J Posture/Palpation/Skin Start: 02/23/18 10:30 Freq: Status: Active Protocol: Document 02/23/18 15:38 EA (Rec: 02/23/18 16:01 EA [id number]) Posture Evaluation Position Standing Evaluation View ant/post Comments Posture Comments slight forward head with rounded shoulder Palpation Assessment Location One Palpation Location Bilateral entire shoulders Palpation Findings Soft Tissue Tightness Tenderness PT-OP-K Range of Motion Start: 02/23/18 10:30 Freq: Status: Active Protocol: Document 02/23/18 15:38 EA (Rec: 02/23/18 16:01 EA [id number]) Cervical Spine Range of Motion Cervical Spine Active Percentage Testing Position Sitting Flexion 90 Extension 65 Rotation Left 60 Rotation Right 65 Lateral Flexion Left 60 Lateral Flexion Right 60 ROM Limitations Soft Tissue Tightness Pain Comments Pain to left mid cervical with rotation to both sides. Shoulder Goniometric Range of Motion Shoulder Measured in Degrees Right Passive Shoulder ROM WFL Yes Left Passive Shoulder ROM WFL Yes Wrist Goniometric Range of Motion Wrist Measured in Degrees Right Wrist ROM WFL Yes Left Wrist ROM WFL Yes PT-OP-L Special Tests Start: 02/23/18 10:30 Freq: Status: Active Protocol: Document 02/23/18 15:38 EA (Rec: 02/23/18 16:01 EA [id number]) Special Tests Cervical Spine Special Tests Upper Limb Tension Test Test Results Negative bilateral Foraminal Compression Test Results negative bilateral Shoulder Special Tests Elevation Impingement Test Results negative Passive ER Rotator Cuff Test Results negative bilateral Neer Impingement Test Results negatibe bilat Other Special Tests Special Tests Phalen's and Reverse Phalen's test: bilateral negative. Capillary feeling test: both negative PT-OP-M Strength Start: 02/23/18 10:30 Freq: Status: Active Protocol: Document 02/23/18 15:38 EA (Rec: 02/23/18 16:01 EA [id number]) Cervical Spine Strength Cervical Spine Manual Muscle Testing Testing Position Sitting Flexion (C1-2) 4 Good Extension 4 Good Rotation Left 4 Good Rotation Right 4 Good Lateral Flexion Left (C3) 4 Good Lateral Flexion Right (C3) 4 Good Shoulder Strength Shoulder Manual Muscle Testing Right Extension 4- Good- Abduction (C5) 3 Fair Adduction 4- Good- External Rotation 3 Fair Internal Rotation 3 Fair Horizontal Abduction 3+ Fair+ Horizontal Adduction 3+ Fair+ Reason Not Measured Pain Left Flexion 3+ Fair+ Extension 4- Good- Abduction (C5) 3 Fair Adduction 4- Good- External Rotation 3 Fair Internal Rotation 3 Fair Horizontal Abduction 3+ Fair+ Horizontal Adduction 3+ Fair+ Reason Not Measured Pain Elbow/Forearm Strength Elbow and Forearm Manual Muscle Testing Right Reason Not Measured WFL Left Reason Not Measured WFL Wrist Strength Wrist Manual Muscle Testing Right Flexion (C7) 4+ Good+ Extension (C6) 4+ Good+ Ulnar Deviation 5 Normal Radial Deviation 4+ Good+ Left Flexion (C7) 5 Normal Extension (C6) 4+ Good+ Ulnar Deviation 4+ Good+ Radial Deviation 4+ Good+ Hand Property Custodian/Pinch Strength Hand Dominance Hand Dominance Right Hand Strength Left Comments Dynamometer: (L 28) (R 24) PT-OP-Q Treatments Start: 02/23/18 10:30 Freq: Status: Active Protocol: Document 04/14/18 09:54 EA (Rec: 04/14/18 10:02 EA [id number]) Cardio Equipment Upper Body Ergometer (UBE) Duration (Minutes) 5 Seat Position 10 Height 7 Gym Equipment Cable Column (Body Solid) Lat Pull Down Resistance 30# Reps/Time x 15 reps Other- 2 Details Cable cross over Resistance 10-15 lbs Reps/Time x 2 sets Other- 1 Details Adjustable cable: sit to stand row Resistance 30-40lbs Reps/Time x 12 reps x 2 Therapeutic Exercises Sitting Exercises 5 Sitting Exercise Name Both thumb flexio/ext Resistance orange to blue john Reps/Minutes x 10 reps 3 Sitting Exercise Name Wrists deviation Side bilateral Resistance 3-5# Reps/Minutes 12 reps x 2 set 2 Sitting Exercise Name Wrist flexion/ext Resistance 3-5# Reps/Minutes 12 reps x 2 set Standing Exercises 6 Standing Exercise Name BODY BLADE: fronts/sides 0-75 degs Reps/Minutes x 30sec each x 2 Comments double and single arm Manual Therapy Treatment Soft Tissue Mobilization 2 Body Location both hands Mobilization Type Sustained Pressure Other Intensity/Depth Moderate Comments Kneading. Joint Mobilizations 1 Joint Both first MCP/MTP joint Direction post/ant Grade II Body Position Sitting Reps/Duration x 5 mins each PT-OP-R Modalities Start: 02/23/18 10:30 Freq: Status: Active Protocol: Document 04/14/18 09:54 EA (Rec: 04/14/18 10:02 EA [id number]) Paraffin Bath Treatment Right Hand Treatment Technique Immersion Bath Number Wax Layers (layers) 6 Duration (minutes) 10 Left Hand Treatment Technique Immersion Bath Number Wax Layers (layers) 6 Duration (minutes) 10 Patient Tolerance Good PT-OP-T Assessment and Plan Start: 02/23/18 10:30 Freq: Status: Active Protocol: Document 04/14/18 09:54 EA (Rec: 04/14/18 10:02 EA [id number]) Physical Therapy Assessment Assessment Summary Assessment Hand dynamometer performed and showed improved hand strength after session. Patient to see next week with the focus of indep HEP. Patient is progressing well. Physical Therapy Plan Next Visit Focus/Plan Next Note Type Treatment Note Next Visit Plan Provide HEP, educate
--- NOTE | 2018-04-18 10:06 | PT.OPPOC ---
Current Diagnoses Carpal tunnel syndrome, unspecified upper limb (04/18/18) Carpal tunnel syndrome, bilateral upper limbs (04/18/18) Provider Visit Care Team Role Provider Type Jessika Woodall DO Attending Provider Physician Family Provider Primary Care Provider Specialty: Family Practice Address: [address] [place] [address], [id number] Email: [email or web address] Plan Of Care PT-OP-T Assessment and Plan Start: 02/23/18 10:30 Freq: Status: Active Protocol: Document 04/18/18 08:16 EA (Rec: 04/18/18 08:26 EA [id number]) Physical Therapy Assessment Impairments Impairments Pain Posture Soft Tissue Mobility Goals Four Impairment Impaired result in in dynamometer hand photoengraving proofer apprentice strength (Left =28; R=24) Metal Stamper Goal (LTG) Patient will exhibit dynamometer hand photoengraving proofer apprentice strength ( L= 30; R 34) LTG Duration goal reached Three Impairment Reported pain of 5/10 with all UE's functional mobility Metal Stamper Goal (LTG) Patient will report 2/10 in all functional mobility of UE' s. LTG Duration 2 wks (excellent improvement) Two Impairment Quick Dash score of 32 Metal Stamper Goal (LTG) Patient will have Quick Dash score of 12 LTG Duration 2 wks (Improving) One Impairment Impaired shoulder and handgrip strength Metal Stamper Goal (LTG) Patient will increase shoulder strength by 1/2 grade and hand photoengraving proofer apprentice to functional level to improve both UE's function. LTG Duration 2 wks. (Improving) Progress Towards Goals Progress Towards Goals Progressing Toward Goals Assessment Summary Assessment Patient both shoulder functional mobility is much improve at this time as there were no current difficulty with overhead reaching. Both hand functions has shown great improvement as well as patient photoengraving proofer apprentice strength tests yields almost near to normal range. Overall patient has an excellent progress results. At this time, patient would benefit in guiding to his safe HEP. Physical Therapy Plan Frequency and Duration Frequency of Treatment 1x/Week Duration of Treatment 2 wks Plan of Care Start Date 04/18/18 Plan of Care End Date 05/02/18 Therapeutic Interventions Therapeutic Interventions Home Exercise Program Joint Mobilizations Manual Therapy Neuromuscular Re-education Patient/Caregiver Education Self-Care/Home Management Soft Tissue Mobilization Taping Therapeutic Exercises Modalities Cold Pack/Ice Massage Electric Stimulation Hot Packs Paraffin Bath Next Visit Focus/Plan Next Note Type Discharge Summary Next Visit Plan Discharge to [facility] next visit. Educate Plan of Care Dates Plan of Care Start Date 04/18/18 Plan of Care End Date 05/02/18 Please Sign and Return: I have reviewed this Plan of Care and certify that the skilled therapy services above are required to meet the patient?s needs. Physician Signature Date Printed Name and Credentials Clinical Instructor Signature Printed Name and Credentials
--- NOTE | 2018-04-18 10:07 | PT.OTRE ---
Current Diagnoses Carpal tunnel syndrome, unspecified upper limb (04/18/18) Carpal tunnel syndrome, bilateral upper limbs (04/18/18) Past Medical History (Last Reviewed 03/07/18 @ 10:31 by Jessika Woodall DO) CTS (carpal tunnel syndrome) (Chronic) Cataract (Chronic 2016) GI bleeding (Chronic 2016) Hearing loss (Chronic 2016) Hyperlipidemia (Chronic) Hypothyroidism (Chronic) Chicken pox (Resolved 1949) Colon polyps (Resolved 1999) Measles (Resolved 1951) Mumps (Resolved 1951) Skin cancer (Resolved 2012) Surgical History (Last Reviewed 03/07/18 @ 10:31 by Jessika Woodall DO) Anesthesia (Resolved) History of appendectomy (Resolved 2011) History of tonsillectomy (Resolved 1954) Provider Visit Care Team Role Provider Type Jessika Woodall DO Attending Provider Physician Family Provider Primary Care Provider Specialty: Family Practice Address: [address] [place] [address] Email: [email or web address] Physical Therapy Re-Evaluation PT-OP-A Visit Information Start: 02/23/18 10:30 Freq: Status: Active Protocol: Document 04/18/18 08:16 EA (Rec: 04/18/18 08:26 EA [id number]) Out-Patient Physical Therapy Visit Information Visit Information Visit Type Treatment Note Visit Note Re-eval performed Visit Start Time 07:30 Visit Stop Time 08:18 Total Visit Minutes 48 Visit Number 16 PT-OP-B Current Condition Start: 02/23/18 10:30 Freq: Status: Active Protocol: Document 02/23/18 12:47 EA (Rec: 02/23/18 12:59 EA [id number]) Current Condition History of Current Condition Onset Date 2 months ago History of Current Condition Present c/o bilateral hands pain started two months ago with no known reason. Pt reports both wrists and finger joints initially was sharp with any gripping activities and currently achy pain; states there were times unable to open or close the hands due to weakness and pain. Patient also reports that pain to both shoulders with weakness folllowed after the hands dysfunction. Patient denies any swelling or increased in joint temperature . Pt mentioned that 2 months ago he lost 8 lbs of weight with no apparent reason. He stated that his doctor did not bother about it as his lab works seems to be normal during last blood chem analysis. Pt mentioned that he has been a smoker for more than 50 years with no pulmonary complication in the past months; he states that he is diagnosed with hypothyroidism and is under medication. Prior Treatments and Tests Ibuprofen Future Testing and Treatments Planned None identified. 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 Functional Limitations- Mobility/Gait indep Functional Limitations- Work/School Unable to comeback to work due to pain on both shoulders and hands PT-OP-C Subjective Start: 02/23/18 10:30 Freq: Status: Active Protocol: Document 04/18/18 08:16 EA (Rec: 04/18/18 08:26 EA [id number]) OP-PT Subjective Patient Comments Patient Comments Pt reports both shoulders are improved and both thumbs still hurts but much less; states wants to know more HEP. PT-OP-E Functional Tests Start: 02/23/18 10:30 Freq: Status: Active Protocol: Document 02/23/18 16:02 EA (Rec: 02/23/18 16:06 EA [id number]) Functional Tests Apley's Scratch Test Action 1: The subject is instructed to touch the opposite shoulder with his/her hand. This motion checks Glenohumeral adduction, internal rotation , horizontal adduction and scapular protraction Action 2: The subject is instructed to place his/her arm overhead and reach behind the neck to touch his/her upper back. This motion checks Glenohumeral abduction, external rotation and scapular upward rotation and elevation. Action 3: The subject puts his/her hand on the lower back and reaches upward as far as possible. This motion checks glenohumeral adduction, internal rotation and scapular retraction with downward rotation Action 1- Left able Action 1- Right able Action 2- Left ear Action 2- Right ear Action 3- Left T10 Action 3- Right T10 PT-OP-F Manual Assessment Start: 02/23/18 10:30 Freq: Status: Active Protocol: Document 02/23/18 16:02 EA (Rec: 02/23/18 16:06 EA [id number]) Manual Assessments Soft Tissue Assessment Soft Tissue Mobility Assessment Tight ness to upper traps, scalenes, LS Joint Mobility Assessment Joint Mobility Assessment Normal joint mobility to both wrist and GH PT-OP-H Neuro Start: 02/23/18 10:30 Freq: Status: Active Protocol: Document 02/23/18 15:38 EA (Rec: 02/23/18 16:01 EA [id number]) Sensation Evaluation Gross Sensation Gross Sensation WNL Comments Summary Comments WFL in all sensory tests Deep Tendon Reflex & Clonus Assessment Deep Tendon Reflex Bilateral Tricep Deep Tendon Reflex 1+ Diminished Bilateral Bicep Deep Tendon Reflex 1+ Diminished Vital Signs Pulse 1 Pulse at Rest (bpm) 55 Pulse Assessment Method Palpation Blood Pressure Sitting Blood Pressure (90/60-120/80 mmHg) 90/50 L Blood Pressure Source Manual Cuff Left Upper Extremity PT-OP-J Posture/Palpation/Skin Start: 02/23/18 10:30 Freq: Status: Active Protocol: Document 02/23/18 15:38 EA (Rec: 02/23/18 16:01 EA [id number]) Posture Evaluation Position Standing Evaluation View ant/post Comments Posture Comments slight forward head with rounded shoulder Palpation Assessment Location One Palpation Location Bilateral entire shoulders Palpation Findings Soft Tissue Tightness Tenderness PT-OP-K Range of Motion Start: 02/23/18 10:30 Freq: Status: Active Protocol: Document 04/18/18 08:16 EA (Rec: 04/18/18 08:26 EA [id number]) Shoulder Goniometric Range of Motion Shoulder Measured in Degrees Right Passive Shoulder ROM WFL Yes Left Passive Shoulder ROM WFL Yes Wrist Goniometric Range of Motion Wrist Measured in Degrees Right Wrist ROM WFL Yes Left Wrist ROM WFL Yes PT-OP-L Special Tests Start: 02/23/18 10:30 Freq: Status: Active Protocol: Document 02/23/18 15:38 EA (Rec: 02/23/18 16:01 EA [id number]) Special Tests Cervical Spine Special Tests Upper Limb Tension Test Test Results Negative bilateral Foraminal Compression Test Results negative bilateral Shoulder Special Tests Elevation Impingement Test Results negative Passive ER Rotator Cuff Test Results negative bilateral Neer Impingement Test Results negatibe bilat Other Special Tests Special Tests Phalen's and Reverse Phalen's test: bilateral negative. Capillary feeling test: both negative PT-OP-M Strength Start: 02/23/18 10:30 Freq: Status: Active Protocol: Document 04/18/18 08:16 EA (Rec: 04/18/18 08:26 EA [id number]) Hand Coordinator Mining [employer]/Pinch Strength Hand Strength Left Comments Dynamometer: (L 38) (R 40) PT-OP-Q Treatments Start: 02/23/18 10:30 Freq: Status: Active Protocol: Document 04/18/18 08:16 EA (Rec: 04/18/18 08:26 EA [id number]) Therapeutic Exercises Sitting Exercises 5 Sitting Exercise Name Both thumb flexio/ext Resistance orange to blue john Reps/Minutes x 10 reps 4 Sitting Exercise Name balloon toss with 2lbs AW to both wrist Resistance 1# AW to woth wrists Reps/Minutes x 30 secs each arm x 2 3 Sitting Exercise Name Wrists deviation Side bilateral Resistance 3-5# Reps/Minutes 12 reps x 2 set 2 Sitting Exercise Name Wrist flexion/ext Resistance 3-5# Reps/Minutes 12 reps x 2 set 1 Sitting Exercise Name Shoulder ABD pain free Side bilateral Resistance 1-2# Reps/Minutes x 2 sets Manual Therapy Treatment Soft Tissue Mobilization 2 Body Location both hands Mobilization Type Sustained Pressure Other Intensity/Depth Moderate Comments Kneading. Joint Mobilizations 1 Joint Both first MCP/MTP joint Direction post/ant Grade II Body Position Sitting Reps/Duration x 5 mins each Self-Care/Home Management Treatment Education Patient Education Home Exercise Program Joint Protection Pain Management Other Education HEP with images given and demonstrates PT-OP-R Modalities Start: 02/23/18 10:30 Freq: Status: Active Protocol: Document 04/14/18 09:54 EA (Rec: 04/14/18 10:02 EA [id number]) Paraffin Bath Treatment Right Hand Treatment Technique Immersion Bath Number Wax Layers (layers) 6 Duration (minutes) 10 Left Hand Treatment Technique Immersion Bath Number Wax Layers (layers) 6 Duration (minutes) 10 Patient Tolerance Good PT-OP-T Assessment and Plan Start: 02/23/18 10:30 Freq: Status: Active Protocol: Document 04/18/18 08:16 EA (Rec: 04/18/18 08:26 EA [id number]) Physical Therapy Assessment Impairments Impairments Pain Posture Soft Tissue Mobility Goals Four Impairment Impaired result in in dynamometer hand slurry worker strength (Left =28; R=24) Tripoler Goal (LTG) Patient will exhibit dynamometer hand slurry worker strength ( L= 30; R 34) LTG Duration goal reached Three Impairment Reported pain of 5/10 with all UE's functional mobility Long-Term Goal (LTG) Patient will report 2/10 in all functional mobility of UE' s. LTG Duration 2 wks (excellent improvement) Two Impairment Quick Dash score of 32 Long-Term Goal (LTG) Patient will have Quick Dash score of 12 LTG Duration 2 wks (Improving) One Impairment Impaired shoulder and handgrip strength Tripoler Goal (LTG) Patient will increase shoulder strength by 1/2 grade and hand slurry worker to functional level to improve both UE's function. LTG Duration 2 wks. (Improving) Progress Towards Goals Progress Towards Goals Progressing Toward Goals Assessment Summary Assessment Patient both shoulder functional mobility is much improve at this time as there were no current difficulty with overhead reaching. Both hand functions has shown great improvement as well as patient slurry worker strength tests yields almost near to normal range. Overall patient has an excellent progress results. At this time, patient would benefit in guiding to his safe HEP. Physical Therapy Plan Frequency and Duration Frequency of Treatment 1x/Week Duration of Treatment 2 wks Plan of Care Start Date 04/18/18 Plan of Care End Date 05/02/18 Therapeutic Interventions Therapeutic Interventions Home Exercise Program Joint Mobilizations Manual Therapy Neuromuscular Re-education Patient/Caregiver Education Self-Care/Home Management Soft Tissue Mobilization Taping Therapeutic Exercises Modalities Cold Pack/Ice Massage Electric Stimulation Hot Packs Paraffin Bath Next Visit Focus/Plan Next Note Type Discharge Summary Next Visit Plan Discharge to HEP next visit. Educate
--- NOTE | 2018-04-21 15:06 | PT.OTN ---
Current Diagnoses Carpal tunnel syndrome, unspecified upper limb (04/21/18) Carpal tunnel syndrome, bilateral upper limbs (04/21/18) Physical Therapy Treatment Note PT-OP-A Visit Information Start: 02/23/18 10:30 Freq: Status: Active Protocol: Document 04/21/18 14:56 EA (Rec: 04/21/18 15:06 EA [id number]) Out-Patient Physical Therapy Visit Information Visit Information Visit Type Treatment Note Visit Note Discharge to this date Visit Start Time 07:30 Visit Stop Time 08:10 Total Visit Minutes 38 Visit Number 17 PT-OP-B Current Condition Start: 02/23/18 10:30 Freq: Status: Active Protocol: Document 02/23/18 12:47 EA (Rec: 02/23/18 12:59 EA [id number]) Current Condition History of Current Condition Onset Date 2 months ago History of Current Condition Present c/o bilateral hands pain started two months ago with no known reason. Pt reports both wrists and finger joints initially was sharp with any gripping activities and currently achy pain; states there were times unable to open or close the hands due to weakness and pain. Patient also reports that pain to both shoulders with weakness folllowed after the hands dysfunction. Patient denies any swelling or increased in joint temperature . Pt mentioned that 2 months ago he lost 8 lbs of weight with no apparent reason. He stated that his doctor did not bother about it as his lab works seems to be normal during last blood chem analysis. Pt mentioned that he has been a smoker for more than 50 years with no pulmonary complication in the past months; he states that he is diagnosed with hypothyroidism and is under medication. Prior Treatments and Tests Ibuprofen Future Testing and Treatments Planned None identified. 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 Functional Limitations- Mobility/Gait indep Functional Limitations- Work/School Unable to comeback to work due to pain on both shoulders and hands PT-OP-C Subjective Start: 02/23/18 10:30 Freq: Status: Active Protocol: Document 04/21/18 14:56 EA (Rec: 04/21/18 15:06 EA [id number]) OP-PT Subjective Patient Comments Patient Comments Pt reports no problems with both shoulder and is functional at this time; states both thumbs aches and pain but not as bad before; states he is okay to discharge to [facility] today. Patient Reported Progress Improving PT-OP-E Functional Tests Start: 02/23/18 10:30 Freq: Status: Active Protocol: Document 02/23/18 16:02 EA (Rec: 02/23/18 16:06 EA [id number]) Functional Tests Apley's Scratch Test Action 1: The subject is instructed to touch the opposite shoulder with his/her hand. This motion checks Glenohumeral adduction, internal rotation , horizontal adduction and scapular protraction Action 2: The subject is instructed to place his/her arm overhead and reach behind the neck to touch his/her upper back. This motion checks Glenohumeral abduction, external rotation and scapular upward rotation and elevation. Action 3: The subject puts his/her hand on the lower back and reaches upward as far as possible. This motion checks glenohumeral adduction, internal rotation and scapular retraction with downward rotation Action 1- Left able Action 1- Right able Action 2- Left ear Action 2- Right ear Action 3- Left T10 Action 3- Right T10 PT-OP-F Manual Assessment Start: 02/23/18 10:30 Freq: Status: Active Protocol: Document 02/23/18 16:02 EA (Rec: 02/23/18 16:06 EA [id number]) Manual Assessments Soft Tissue Assessment Soft Tissue Mobility Assessment Tight ness to upper traps, scalenes, LS Joint Mobility Assessment Joint Mobility Assessment Normal joint mobility to both wrist and GH PT-OP-H Neuro Start: 02/23/18 10:30 Freq: Status: Active Protocol: Document 02/23/18 15:38 EA (Rec: 02/23/18 16:01 EA [id number]) Sensation Evaluation Gross Sensation Gross Sensation WNL Comments Summary Comments WFL in all sensory tests Deep Tendon Reflex & Clonus Assessment Deep Tendon Reflex Bilateral Tricep Deep Tendon Reflex 1+ Diminished Bilateral Bicep Deep Tendon Reflex 1+ Diminished Vital Signs Pulse 1 Pulse at Rest (bpm) 55 Pulse Assessment Method Palpation Blood Pressure Sitting Blood Pressure (90/60-120/80 mmHg) 90/50 L Blood Pressure Source Manual Cuff Left Upper Extremity PT-OP-J Posture/Palpation/Skin Start: 02/23/18 10:30 Freq: Status: Active Protocol: Document 02/23/18 15:38 EA (Rec: 02/23/18 16:01 EA [id number]) Posture Evaluation Position Standing Evaluation View ant/post Comments Posture Comments slight forward head with rounded shoulder Palpation Assessment Location One Palpation Location Bilateral entire shoulders Palpation Findings Soft Tissue Tightness Tenderness PT-OP-K Range of Motion Start: 02/23/18 10:30 Freq: Status: Active Protocol: Document 04/18/18 08:16 EA (Rec: 04/18/18 08:26 EA [id number]) Shoulder Goniometric Range of Motion Shoulder Measured in Degrees Right Passive Shoulder ROM WFL Yes Left Passive Shoulder ROM WFL Yes Wrist Goniometric Range of Motion Wrist Measured in Degrees Right Wrist ROM WFL Yes Left Wrist ROM WFL Yes PT-OP-L Special Tests Start: 02/23/18 10:30 Freq: Status: Active Protocol: Document 02/23/18 15:38 EA (Rec: 02/23/18 16:01 EA [id number]) Special Tests Cervical Spine Special Tests Upper Limb Tension Test Test Results Negative bilateral Foraminal Compression Test Results negative bilateral Shoulder Special Tests Elevation Impingement Test Results negative Passive ER Rotator Cuff Test Results negative bilateral Neer Impingement Test Results negatibe bilat Other Special Tests Special Tests Phalen's and Reverse Phalen's test: bilateral negative. Capillary feeling test: both negative PT-OP-M Strength Start: 02/23/18 10:30 Freq: Status: Active Protocol: Document 04/18/18 08:16 EA (Rec: 04/18/18 08:26 EA [id number]) Hand Senior System Operator/Pinch Strength Hand Strength Left Comments Dynamometer: (L 38) (R 40) PT-OP-Q Treatments Start: 02/23/18 10:30 Freq: Status: Active Protocol: Document 04/21/18 14:56 EA (Rec: 04/21/18 15:06 EA [id number]) Therapeutic Exercises Sitting Exercises 6 Sitting Exercise Name both thum flexor/extensor/ABD rubber band Reps/Minutes x 10 reps x 2 Comments HEP comp 5 Sitting Exercise Name Both thumb flexio/ext Resistance orange to blue/green john Reps/Minutes x 10 reps x 2 4 Sitting Exercise Name balloon toss with 2lbs AW to both wrist Resistance 2# AW to woth wrists Reps/Minutes x 30 secs each arm x 2 3 Sitting Exercise Name Wrists deviation Side bilateral Resistance 3-5# Reps/Minutes 12 reps x 2 set Comments HEP component 2 Sitting Exercise Name Wrist flexion/ext Resistance 3-5# Reps/Minutes 12 reps x 2 set Comments HEP comt 1 Sitting Exercise Name Shoulder ABD pain free Side bilateral Resistance 1-2# Reps/Minutes x 2 sets Comments HEP comp Self-Care/Home Management Treatment Education Patient Education Home Exercise Program Joint Protection Pain Management Other Education both hand thumb HEP with images given and demonstrates PT-OP-R Modalities Start: 02/23/18 10:30 Freq: Status: Active Protocol: Document 04/14/18 09:54 EA (Rec: 04/14/18 10:02 EA [id number]) Paraffin Bath Treatment Right Hand Treatment Technique Immersion Bath Number Wax Layers (layers) 6 Duration (minutes) 10 Left Hand Treatment Technique Immersion Bath Number Wax Layers (layers) 6 Duration (minutes) 10 Patient Tolerance Good PT-OP-T Assessment and Plan Start: 02/23/18 10:30 Freq: Status: Active Protocol: Document 04/21/18 14:56 EA (Rec: 04/21/18 15:06 EA [id number]) Physical Therapy Assessment Assessment Summary Assessment Patient is discharge today after reaching functional goals and patient request. Physical Therapy Plan Discharge Physical Therapy Discharge Reasons Patient Request
== END 2018-04-22 11:59 ==
LOC: PHYS 07:30
PROVIDERS: Family Provider Family Medicine; PCP Family Medicine; Visit Provider Family Medicine
DX: G56.03 Carpal tunnel syndrome, bilateral upper limbs (principal); G56.00 Carpal tunnel syndrome, unspecified upper limb
CPT/HCPCS: 97014; 97018; 97110; 97140; 97162; 97535; G0283

== ENCOUNTER → 2018-08-08 09:07 | Outpatient (CLI) | payer MEDICARE, OTHER, SELFPAY ==
[2018-02-23 15:38] VITALS: PULSE 55
[2018-08-08 10:13] LABS: Alanine Aminotransferase 29 IU/L (21-72); Albumin 4.3 g/dL (3.5-5.0); Albumin Globulin Ratio 1.2 (1.0-2.8); Alkaline Phosphatase 65 U/L (38-126); Aspartate Aminotransferase 29 IU/L (17-59); BUN Creatinine Ratio 16.7 (6-22); Blood Urea Nitrogen 15 mg/dL (9-20); Calcium 9.3 mg/dL (8.4-10.2); Carbon Dioxide 27 mmol/L (22-32); Chloride 106 mmol/L (98-107); Cholesterol 222 mg/dL (140-199); Estimated Glomerular Filt Rate > 60.0 mL/min (>60); Globulin 3.7 g/dL (1.7-4.1); Glucose 108 mg/dL (80-110); HDL Cholesterol 46 mg/dL (40-60); HEMOLYSIS < 15 (0-50); LDL Cholesterol Calculated 161 mg/dL (<100); Potassium 5.1 mmol/L (3.4-5.1); Sodium 141 mmol/L (137-145); Triglycerides 74 mg/dL (35-150)
== END ==
PROVIDERS: PCP Family Medicine; Visit Provider Family Medicine
DX: E03.9 Hypothyroidism, unspecified (principal); E78.5 Hyperlipidemia, unspecified
CPT/HCPCS: 36415; 80053; 80061; 84443

== ENCOUNTER → 2019-01-12 08:37 | Outpatient (CLI) | payer MEDICARE, OTHER, SELFPAY ==
[2018-02-23 15:38] VITALS: PULSE 55
[2019-01-12 09:58] LABS: Cholesterol 175 mg/dL (140-199); HDL Cholesterol 44 mg/dL (40-60); LDL Cholesterol Calculated 119 mg/dL (<100); Triglycerides 59 mg/dL (35-150)
[2019-01-12 15:19] LABS: Cortisol AM (Before 10AM) 12.7 ug/dL (4.46-22.7)
== END ==
PROVIDERS: PCP Family Medicine; Visit Provider Internal Medicine Cardiovascular Disease
DX: I95.9 Hypotension, unspecified (principal); E03.9 Hypothyroidism, unspecified; E78.5 Hyperlipidemia, unspecified
CPT/HCPCS: 36415; 80061; 82088; 82533; 84443

== ENCOUNTER → 2019-02-09 14:02 | Outpatient (CLI) | payer MEDICARE, OTHER, SELFPAY ==
[2018-02-23 15:38] VITALS: PULSE 55
--- NOTE | 2019-02-09 | DI.CT.S_ITS ---
PROCEDURE: CT ABDOMEN PELVIS WO/W CON INDICATIONS: Unspecified hydronephrosis TECHNIQUE: Optional 5 mm thick noncontrast images acquired from the diaphragm to the symphysis pubis. After the administration of intravenous contrast, 5 mm thick images acquired from the diaphragm to the symphysis pubis after a 10-minute delay. 2 mm thick coronal and sagittal reformats were then performed of the kidneys and ureters. For radiation dose reduction, the following was used: automated exposure control, adjustment of mA and/or kV according to patient size. COMPARISON: Retroperitoneal ultrasound 01/17/2019. CT chest 04/27/2018. FINDINGS: Image quality: Excellent. Lung bases: Persistent peripheral reticular thickening at the lung bases similar to CT from March 2018. Heart size is normal. Urinary system: Both kidneys are normal in size, without hydronephrosis or nephrolithiasis on pre-contrast images. No perinephric fat stranding. There is normal bilateral renal enhancement. Simple renal cysts bilaterally. The largest of which measures 3.3 cm and the mid left kidney. Large right peripelvic cyst measuring a 5.2 x 3.7 cm, (3/60). Renal calyces appear normal in morphology when filled with contrast. Opacified portions of both ureters demonstrate normal caliber. Bladder wall thickness is normal. No calcified bladder stones. Other solid organs: Liver is normal in size and enhancement. Gallbladder is nondistended. Cholelithiasis. Biliary system is non dilated. The cystic lesion in the uncinate process of the pancreas measuring a 2.3 x 1.1 cm, (3/63). No pancreatic ductal dilatation. No mural nodule. No peripancreatic fluid collection. Spleen is normal in size and enhancement. No adrenal nodules. Peritoneum and bowel: Bowel loops demonstrate normal wall thickness and caliber. A few scattered colonic diverticula. The appendix is surgically absent. No free fluid or air. Nodes and vessels: No retroperitoneal or mesenteric adenopathy by size criteria. Infrarenal abdominal aortic aneurysm measuring 3.5 cm, (5/103). Mild calcified atherosclerotic plaque. Abdominal wall: Tiny periumbilical hernia. Pelvis: No pathologic free pelvic fluid. No inguinal hernias or adenopathy. Prostate gland is prominent in size. Bones: No suspicious bony lesions. No vertebral body compression fractures. IMPRESSION: 1. No hydronephrosis. Large right peripelvic cyst which could have the appearance of hydronephrosis on ultrasound. 2. No renal mass. No upper urinary tract filling defect. 3. Incidental cystic lesion in the uncinate process of the pancreas measuring 2.3 cm. -Recommend followup pancreatic MRI or pancreas protocol CT in 6 months. 4. Infrarenal abdominal aortic aneurysm measuring 3.5 cm. 5. Cholelithiasis. 6. Stable mild interstitial lung disease at the lung bases. Dictated by: Tima Hdez M.D. on 02/09/2019 at 15:25 Approved by: Tiam Hdez M.D. on 02/09/2019 at 16:16
== END ==
PROVIDERS: PCP Family Medicine; Visit Provider Urology
DX: N13.30 Unspecified hydronephrosis (principal); N28.1 Cyst of kidney, acquired; I71.4 Abdominal aortic aneurysm, without rupture; K86.9 Disease of pancreas, unspecified; K80.20 Calculus of gallbladder without cholecystitis without obstruction; J84.9 Interstitial pulmonary disease, unspecified
CPT/HCPCS: 74178; Q9967

== ENCOUNTER → 2019-02-16 07:46 | Outpatient (CLI) | payer MEDICARE, OTHER, SELFPAY ==
[2018-02-23 15:38] VITALS: PULSE 55
--- NOTE | 2019-02-16 | DI.NM.S_ITS ---
PROCEDURE: NM DAISY PERF SPECT REST & STR Rest and exercise myocardial perfusion SPECT with gated imaging and ejection fraction RADIOPHARMACEUTICAL: 24.9 mCi Tc-99m sestamibi IV at rest and 26.5 mCi Tc-99m sestamibi IV at peak exercise. A two day-protocol was performed. INDICATIONS: Unspecified right bundle-branch block TECHNIQUE: Radiopharmaceutical was injected at peak stress test, and also at rest. SPECT images were obtained. SPECT myocardial perfusion images were displayed in short axis, horizontal long axis, and vertical long axis views. Gated images were reviewed using [employer] software. COMPARISON: None. CARDIAC STRESS: A standard Cody treadmill exercise tolerance test was performed by the patient under the supervision of an attending staff. The patient exercised for 7 minutes and 14 seconds; functional aerobic impairment (MARTI) is -10%. Hemodynamic data: There is normal blood pressure and heart rate response to exercise stress. Patient achieved 95% of maximum predicted heart rate at peak exercise. Symptoms: Patient denied chest pain during exercise. EKG: Resting ECG shows sinus rhythm with RBBB. With exercise, there were 1mm horizontal to downsloping ST depressions in V2-V3 leads. No ectopy. FINDINGS: Raw data: There is good myocardial labeling by radiotracer. No significant motion artifacts. Cwis-tu-vprjk ratio is 0.25 (normal is less than 0.38 for sestamibi tracer, and less than 0.50 for thallium tracer). Left ventricle function: Gated images demonstrate normal left ventricle wall thickening. No segmental wall motion abnormality. No transient ischemic dilation; TID is 0.7 (normal less than 1.3). The left ventricle resting end-diastolic volume is 118 mL. Left ventricle stress ejection fraction is 77%; normal values are above 45%. Myocardial perfusion: There is normal distribution of activity in the left and right ventricular myocardium. No fixed or reversible perfusion defects. IMPRESSION: Low risk, normal treadmill nuclear stress test. 1) No perfusion evidence of ischemia or infarction. 2) Normal left ventricular size, wall motion, and systolic function E(F post stress 77%). 3) False positive, 1mm horizontal to down-sloping ST depressions in V2-V3 leads during early recovery. 4) No angina during the study. 5) Good exercise tolerance (10.1 METs, MARTI -10%). Target heart rate achieved. 6) No prior nuclear stress test available for comparison. Dictated by: Lala Willingham MD on 02/17/2019 at 16:36 Approved by: Lala Willingham MD on 02/17/2019 at 16:41
--- NOTE | 2019-02-16 08:40 | PM.TREADMILL ---
Cardiac Stress Test Report Referral & Results Date Patient Seen: 02/16/19 Time Patient Seen: 08:30 Requesting provider: Kyle Chen Indication: RBBB Rest ECG: Sinus bradycardia with right bundle branch block Procedure Note: Today following both written and verbal informed consent the patient was exercised according to a standard Cody protocol patient went for a total of 7 minutes 14 seconds achieving a maximum heart rate of 138 maximum systolic blood pressure of 180. This is approximately 10.1 METs. Exercise was terminated at this point because of fatigue. Patient was also given Cardiolite through a previously started Hep-Lock IV by the health care sanitary technician approximately 1 minute prior to the cessation of exercise. No signs or symptoms of angina. MARTI-10% on active scale. [address] deviations in multiple leads that resolved rapidly with rest. Impression: Will await perfusion imaging. Please note: Actual ECG tracings can be found in the PACS system.
== END ==
PROVIDERS: PCP Family Medicine; Visit Provider Internal Medicine Cardiovascular Disease
DX: I45.10 Unspecified right bundle-branch block (principal); R00.1 Bradycardia, unspecified
CPT/HCPCS: 78452; 93016; 93017; 93018; A9502

== ENCOUNTER → 2019-02-17 13:32 | Outpatient (CLI) | payer MEDICARE, OTHER, SELFPAY ==
[2018-02-23 15:38] VITALS: PULSE 55
--- NOTE | 2019-02-17 | DI.ECHO.S_ITS ---
[place] +---------+ [facility] +---------+ : : [address] : : : : [id number] : : : : Phone: [phone]---------+ Echocardiogram Report + + :Name: DANIEL KHALIL Study Date: 02/17/2019 Height: 71 in : :[facility] Weight: 176 lb : : Gender: Male BSA: 2.0 m2 : :: 1945 Age: 73 yrs BP: 120/76 mmHg: :Reason For Study: Bradycardia : : Performed By: Beckie Dubon : :Referring: AMRITA CHEEMA : + + Interpretation Summary The patient was in sinus bradycardia with heart rates between 47-50 bpm during the exam. The left ventricle is normal in size. The ejection fraction is estimated to be 60-65%. Borderline right ventricular enlargement. The right ventricular systolic function is normal. There is mild to moderate mitral regurgitation. There is mild tricuspid regurgitation. Right ventricular systolic pressure is estimated to be 21 mmHg plus the clinically estimated CVP which cannot be estimated on this exam. There is mild aortic regurgitation. Mildly dilated abdominal aorta. Procedure: A two-dimensional transthoracic echocardiogram with color flow and Doppler was performed. The study quality was technically adequate. There is no prior echocardiogram noted for this patient. The heart rate ranged between 47-48 bpm during the study. The patient was in sinus bradycardia with heart rates between 47-50 bpm during the exam. Left Ventricle: The left ventricle is normal in size. There is normal left ventricular wall thickness. A false chord is noted (normal variant). The ejection fraction is estimated to be 60-65%. There are no focal wall motion abnormalities. Diastolic parameters suggest probable normal left ventricular diastolic function and normal filling pressures. Right Ventricle: Borderline right ventricular enlargement. The right ventricular systolic function is normal. Atria: The left atrium is mildly dilated. Right atrial size is normal. A prominent eustachian valve is noted. The interatrial septum is intact with no evidence for an atrial septal defect. Mitral Valve: The mitral valve is grossly normal. There is systolic anterior motion of the chordal apparatus. There is mild to moderate mitral regurgitation. Aortic Valve: The aortic valve is trileaflet. The aortic valve opens well. There is no aortic valve stenosis. There is mild aortic regurgitation. Tricuspid Valve: The tricuspid valve is normal. There is mild tricuspid regurgitation. Right ventricular systolic pressure is estimated to be 21 mmHg plus the clinically estimated CVP which cannot be estimated on this exam. Pulmonic Valve: The pulmonic valve is not well seen, but is grossly normal. There is trace pulmonic regurgitation. Great Vessels: The aortic root is normal size. The ascending aorta could not be visualized. The aortic arch is at the upper limits of normal in size. Mildly dilated abdominal aorta. The inferior vena cava was not visualized. Pericardium/ Pleura There is no pericardial effusion. There is no pleural effusion. MMode/2D Measurements & Calculations LVIDd: 4.1 cm Ao root diam: 3.6 cm LVIDs: 2.7 cm Aortic Jxn: 2.9 cm FS: 33.1 % Ao Arch Diam (Prox Trans): 3.1 cm EPSS: 0.57 cm IVSd: 0.98 cm LVPWd: 0.97 cm LV foster. diameter/BSA (cm/m^2): 2.1 LV sys. diameter/BSA (cm/m^2): 1.4 LA dimension: 3.3 cm RA long axis: 5.7 cm LA A2 area: 26.0 cm2 RA area: 20.4 cm2 LA A4 area: 20.8 cm2 RA vol: 61.7 ml LA length (vol): 5.5 cm RA : 30.9 ml/m2 LA vol: 82.9 ml RVDd major: 7.5 cm LA vol index: 41.5 ml/m2 RVD1 (basal): 4.8 cm RVD2 (mid): 4.8 cm Doppler Measurements & Calculations Ao V2 max: 156.6 cm/sec MV E max bulmaro: 77.9 cm/sec Ao V2 mean: 103.5 cm/sec MV A max bulmaro: 62.0 cm/sec Ao max P.8 mmHg MV E/A: 1.3 Ao mean P.1 mmHg Med Peak E' Bulmaro: 9.6 cm/sec Ao V2 VTI: 40.7 cm E/E' med: 8.1 Lat Peak E' Bulmaro: 9.7 cm/sec E/E' lat: 8.0 E/e' average: 8.1 MV dec time: 0.29 sec MV P1/2t: 88.5 msec TR max bulmaro: 231.1 cm/sec MV P1/2t max bulmaro: 79.2 cm/sec TR max P.4 mmHg MVA(P1/2t): 2.5 cm2 PA V2 max: 71.9 cm/sec PA V2 mean: 46.4 cm/sec PA mean P.0 mmHg PA Accel Time: 0.21 sec Reading Physician:05:22 PM
== END ==
PROVIDERS: PCP Family Medicine; Visit Provider Internal Medicine Cardiovascular Disease
DX: I08.3 Combined rheumatic disorders of mitral, aortic and tricuspid valves (principal); I77.810 Thoracic aortic ectasia; R00.1 Bradycardia, unspecified; I45.10 Unspecified right bundle-branch block
CPT/HCPCS: 93306

== ENCOUNTER 2019-08-03 15:44 | Inpatient (IN) | payer MEDICARE, OTHER, SELFPAY ==
[2018-02-23 15:38] VITALS: PULSE 55
[2019-08-03] VITALS (24 sets, daily range): BP systolic 85–131; BP diastolic 50–74; PULSE 51–138; RESP 16–50; TEMP 29.7–39.4; O2SAT 68–97; BMI 23.0
--- NOTE | 2019-08-03 14:31 | DI.US.S_ITS ---
PROCEDURE: US PERIPH VENOUS LOW EXTREM BI INDICATIONS: ELEVATED D-DIMER TECHNIQUE: Real-time imaging, as well as color and pulse Doppler interrogation, were performed of the deep veins of both legs from the inguinal ligament to the popliteal fossa. COMPARISON: None. FINDINGS: Right: The common femoral, femoral and popliteal veins are normally compressible, and free of intraluminal thrombus. Color and pulse Doppler demonstrate normal phasic intravascular flow. There is normal augmentation response to distal compression maneuver. Left: The common femoral, femoral and popliteal veins are normally compressible, and free of intraluminal thrombus. Color and pulse Doppler demonstrate normal phasic intravascular flow. There is normal augmentation response to distal compression maneuver. IMPRESSION: No evidence of deep vein thrombosis of the bilateral lower extremities. Dictated by: Will Crawley M.D. on 08/04/2019 at 13:54 Approved by: Will Crawley M.D. on 08/04/2019 at 13:59
--- NOTE | 2019-08-03 15:51 | DI.RAD.S_ITS ---
PROCEDURE: XR CHEST 1V INDICATIONS: flu-like symptoms TECHNIQUE: One view of the chest was acquired. COMPARISON: [facility], CT, CT CHEST WITHOUT CONTRAST, 04/27/2018, 8:24. [facility], CR, XR CHEST 2 VIEWS, 03/16/2018, 17:16. FINDINGS: Surgical changes and devices: None. Lungs and pleura: There is background changes of chronic obstructive pulmonary physiology and interstitial coarsening. There is now diffuse bilateral ill-defined opacities without focal consolidations. No pneumothorax. No substantial pleural effusion. Mediastinum: Mediastinal contours appear normal. Heart size is normal. Bones and chest wall: No suspicious bony lesions. Overlying soft tissues appear unremarkable. IMPRESSION: 1. Interval development of diffuse bilateral ill-defined opacities which may represent an infectious/inflammatory process with viral or atypical organism most likely. No focal consolidations. 2. Background pulmonary emphysematous changes and chronic interstitial disease. Dictated by: Fredy Pozo M.D. on 08/03/2019 at 16:17 Approved by: Fredy Pozo M.D. on 08/03/2019 at 16:20
--- NOTE | 2019-08-03 15:58 | ED.SOB ---
HPI - SOB/Dyspnea General Chief Complaint: Fever Stated Complaint: trouble breathing Time Seen by Provider: 08/03/19 15:57 Source: patient and family Mode of arrival: Wheelchair Limitations: no limitations History of Present Illness HPI Narrative: This is a 74-year-old male who comes to the emergency department with complaint of difficulty breathing. Patient states that he started having some rigors and chills for the last several days with temperatures up into the 101 F height range. Patient was in touch with his remote medical coder as he takes methotrexate and prednisone. He has stopped these a week ago on Wednesday or 6 days ago. He did restart his prednisone early this morning at about 2 or 3:00 a.m.. Patient states he has felt increasingly short of breath over the last 24 hours. He has had some cough but it has been nonproductive with no hemoptysis. Patient has had some chest pain/pressure. He has had some mild nausea but no vomiting. He has developed some diarrhea in the last 12 hours. No black or bloody stools. No urinary symptoms. He denies any swelling in his extremities. He takes the methotrexate and prednisone for rheumatoid arthritis he takes levothyroxine for hypothyroidism and simvastatin for dyslipidemia. Patient has not had any prior cardiac history although he has been told he has a right bundle branch block on a prior EKG. He does have a history of lower abdominal aortic aneurysm which is stable on prior scans at 3.5 cm in the pelvic cyst with a pancreatic cyst on a prior CT scan. He has never had any cardiac stents or interventions. He is a chronic smoker and still smokes 5 cigarettes daily he states he has to regularly smoke about 10. He states no one has ever told him that his oxygenation was low on prior office visits or physician checks. He is not aware of any emphysema or COPD. He has not had any Tylenol or ibuprofen today. Related Data Home Medications Medication Instructions Recorded Confirmed prednisone 5 mg tablet 5 mg PO DAILY 08/15/18 08/03/19 prednisone 2.5 - 5 mg PO DAILY 08/03/19 08/03/19 Previous Rx's Medication Instructions Recorded levothyroxine 50 mcg capsule 50 mcg PO DAILY #90 cap 08/29/18 simvastatin 10 mg tablet 10 mg PO BEDTIME #90 tab 06/30/19 Allergies Allergy/AdvReac Type Severity Reaction Status Date / Time No Known Drug Allergies Allergy Verified 03/27/19 09:00 Review of Systems Review of Systems ROS Unobtainable: All systems reviewed & are unremarkable except as noted in HPI and below Patient History Medical History Cataract (Chronic 2015) Chicken pox (Resolved 1949) Colon polyps (Resolved 1999) CTS (carpal tunnel syndrome) (Chronic) GI bleeding (Chronic 2016) Hearing loss (Chronic 2016) Hyperlipidemia (Chronic) Hypothyroidism (Chronic) Measles (Resolved 1951) Mumps (Resolved 1951) Skin cancer (Resolved 2012) Surgical History Anesthesia (Resolved) History of appendectomy (Resolved 2011) History of tonsillectomy (Resolved 1954) Family History Father Liver cancer Mother Lung cancer Brother No problems noted. Brother No problems noted. Brother No problems noted. Daughter No problems noted. Social History (Updated 08/03/19 @ 16:12 by Anita Rojas DO) marital status: Smoking Status: Current every day smoker Smoking Status: Current every day smoker alcohol intake frequency: 0-2 drinks per day Substance Use Type: does not use Exam Narrative Exam Narrative: GEN: well nourished, male, alert and oriented x 3, patient appears to be in moderate distress. Patient has as she coloration. HEENT: Atraumatic, pupils are equal round reactive to light, extraocular movements are intact, nares are clear. Throat is clear without any exudates, erythema, tonsillar enlargement or uvular deviation HEART: Tachycardic but rate and rhythm without murmur, clicks, rubs. No carotid bruits, pulses are equal in upper and lower extremities LUNGS:Lungs decreased bilaterally on auscultation, no wheezes, rales, patient has crackles on right, chest moves symmetrically, positive for tachypnea, speaks in 2-3 word sentences. No retractions noted. ABD:bowel sounds normal, soft, non-tender, no guarding, rebound, rigidity, no masses noted, no hepatosplenomegaly :No CVA tenderness MSCL: Non-tender, no muscle atrophy, muscles strength 5/5 upper and lower extremities, full range of motion, normal gait NEURO:CN 2-12 intact, sensation normal SKIN: No rash, no erythema or other skin changes noted. Initial Vital Signs Initial Vital Signs: Vital Signs Temperature 102.8 F H 08/03/19 15:47 Pulse Rate 138 H 08/03/19 15:47 Respiratory Rate 50 H 08/03/19 15:47 Blood Pressure 131/74 08/03/19 15:47 Pulse Oximetry 68 L 08/03/19 15:47 Scores GCS [place] coma scale eye opening: Spontaneous [place] coma scale verbal response: Orientated [place] coma scale motor response: Obey commands [place] coma scale total score: 15 Course Orders Ordered: ED Orders 08/03/19 15:50 Blood Culture Stat C-Reactive Protein Quant Stat Complete Blood Count AUTO DIFF Stat Comprehensive Metabolic Panel Stat D Dimer Stat Ferritin Stat Influenza A & B (PCR) Stat Lactate (Lactic Acid) Stat NT-proBNP (BNP-Adult 18+) Stat Procalcitonin Stat Troponin & CK Cardiac Panel Stat 08/03/19 15:51 XR chest 1V Stat EKG-12 Lead Stat 08/03/19 16:02 Arterial Blood Gas Stat 08/03/19 16:41 CT angio chest PE protocol Stat 08/03/19 18:24 BiPAP Ventilatory Support RT PROTOCOL 08/03/19 18:25 ABG [Arterial Blood Gas] Stat Sodium Chloride (Normal Saline 0.9%) 1,000 mls @ 150 mls/hr IV BOLUS ONE Stop: 08/04/19 00:56 Last Admin: 08/03/19 18:19 Dose: 150 mls/hr Documented by: KAREN Discontinued Medications Acetaminophen (Tylenol) 975 mg PO NOW ONE Stop: 08/03/19 15:54 Last Admin: 08/03/19 16:01 Dose: 975 mg Documented by: KAREN Sodium Chloride (Normal Saline 0.9%) 1,000 mls @ 500 mls/hr IV BOLUS ONE Stop: 08/03/19 17:52 Last Infusion: 08/03/19 18:19 Dose: 0 mls/hr Documented by: Infusion: 08/03/19 17:57 Dose: 150 mls/hr Documented by: Admin: 08/03/19 16:01 Dose: 500 mls/hr Documented by: KAREN Piperacillin/Tazobactam/Dextrose (Zosyn) 4.5 gm in 100 mls @ 200 mls/hr IV NOW ONE Stop: 08/03/19 17:45 Last Infusion: 08/03/19 18:30 Dose: 0 mls/hr Documented by: Admin: 08/03/19 17:56 Dose: 200 mls/hr Documented by: KAREN Sodium Chloride (Normal Saline 0.9%) 1,000 mls @ 1,000 mls/hr IV BOLUS ONE Stop: 08/03/19 18:15 Last Infusion: 08/03/19 19:16 Dose: 0 mls/hr Documented by: Admin: 08/03/19 17:56 Dose: 1,000 mls/hr Documented by: KAREN Ketorolac Tromethamine (Toradol) 30 mg IV NOW ONE Stop: 08/03/19 18:18 Last Admin: 08/03/19 18:22 Dose: 30 mg Documented by: KAREN Lidocaine HCl (Urojet) 5 ml TOP NOW ONE Stop: 08/03/19 19:14 Last Admin: 08/03/19 19:15 Dose: 5 ml Documented by: KAREN Ondansetron HCl (Zofran) 4 mg IV NOW ONE Stop: 08/03/19 15:54 Last Admin: 08/03/19 16:00 Dose: 4 mg Documented by: KAREN Vital Signs Vital signs: Vital Signs - 8 hr 08/03/19 15:47 08/03/19 16:01 08/03/19 16:07 Temperature 102.8 F H 102.8 F H Pulse Rate 138 H 113 H 113 H Respiratory Rate 50 H 30 H 31 H Blood Pressure 131/74 Blood Pressure [Right Arm] 107/57 L 108/59 L Pulse Oximetry 68 L 89 L 91 08/03/19 16:18 08/03/19 16:20 08/03/19 16:30 Temperature Pulse Rate 109 H 103 H Respiratory Rate 30 H 24 28 H Blood Pressure Blood Pressure [Right Arm] 108/59 L 108/56 L Pulse Oximetry 91 91 08/03/19 17:00 08/03/19 17:15 08/03/19 17:30 Temperature Pulse Rate 96 H 96 H 86 Respiratory Rate 26 H 38 H 23 Blood Pressure Blood Pressure [Right Arm] 122/65 122/65 107/58 L Pulse Oximetry 93 08/03/19 17:55 08/03/19 18:05 08/03/19 18:06 Temperature 103 F H Pulse Rate 90 85 Respiratory Rate 34 H 34 H Blood Pressure Blood Pressure [Right Arm] 85/50 L 98/55 L Pulse Oximetry 91 92 08/03/19 18:22 Temperature 103 F H Pulse Rate Respiratory Rate Blood Pressure Blood Pressure [Right Arm] Pulse Oximetry MDM - SOB/Dyspnea Lab Data Attestation: I reviewed the patient's lab results. Result diagrams: 08/03/19 15:50 08/03/19 15:50 Labs: Lab Results 08/03/19 08/03/19 08/03/19 Range/Units 15:50 15:50 15:50 WBC 15.2 H (4.5-11.0) X10^3/uL RBC 4.76 (4.5-5.9) X10^6/uL Hgb 14.7 (13.5-17.5) g/dL Hct 44.7 (41-53) % MCV 93.8 (80-100) fL MCH 30.9 (26-34) PG MCHC 32.9 (30-36) % RDW 17.3 H (11.6-14.8) % Plt Count 309 (150-400) X10^3/uL Neut % (Auto) 81.8 H (50-75) % Lymph % (Auto) 10.9 L (25-40) % [place] % (Auto) 6.1 (3-14) % Eos % (Auto) 0.3 L (2-4) % Baso % (Auto) 0.9 (0-2) % Neut # (Auto) 36666 H (7211-7031) /uL Lymph # (Auto) 1700 (0583-8915) /uL [place] # (Auto) 900 (0-900) /uL Eos # (Auto) 100 (0-450) /uL Baso # (Auto) 100 (0-100) /uL D-Dimer > 5250 H (<230) ng/mL ABG pH (7.35-7.45) ABG pCO2 (35-45) mmHg ABG pO2 (80-100) mmHg ABG HCO3 (22-26) mmol/L ABG Total CO2 (21-31) mmol/L ABG O2 Saturation (95-100) % ABG Base Excess (-2-2) mmol/L FiO2 Sodium 137 (137-145) mmol/L Potassium 4.3 (3.4-5.1) mmol/L Chloride 99 (98-107) mmol/L Carbon Dioxide 20 L (22-32) mmol/L BUN 19 (9-20) mg/dL Creatinine 0.91 (0.66-1.25) mg/dL Estimated GFR > 60.0 (>60) mL/min BUN/Creatinine Ratio 20.9 (6-22) Glucose 173 H (80-110) mg/dL Lactate (0.7-2.1) mmol/L Calcium 10.2 (8.4-10.2) mg/dL Ferritin 50 (18-464) ng/mL Total Bilirubin 0.4 (0.2-1.3) mg/dL AST 60 H (17-59) IU/L ALT 25 (<50) IU/L Alkaline Phosphatase 90 (38-126) U/L Total Creatine Kinase 214 H (55-170) U/L CK-MB (CK-2) 0.74 (<2.37) ng/mL CK-MB (CK-2) Rel Index 0.3 L (1.5-5.0) % Troponin I < 0.012 (0.01-0.034) ng/mL C-Reactive Protein 13.7 H (<1.0) mg/dL NT-Pro-B Natriuret Pep 273 (<450) pg/mL Total Protein 8.0 (6.3-8.2) g/dL Albumin 4.2 (3.5-5.0) g/dL Globulin 3.8 (1.7-4.1) g/dL Albumin/Globulin Ratio 1.1 (1.0-2.8) Procalcitonin (<0.5) ng/mL COVID-19 PCR (Negative) Influenza A (RT-PCR) (NEGATIVE) Influenza B (RT-PCR) (NEGATIVE) 08/03/19 08/03/19 08/03/19 Range/Units 15:50 15:50 15:50 WBC (4.5-11.0) X10^3/uL RBC (4.5-5.9) X10^6/uL Hgb (13.5-17.5) g/dL Hct (41-53) % MCV (80-100) fL MCH (26-34) PG MCHC (30-36) % RDW (11.6-14.8) % Plt Count (150-400) X10^3/uL Neut % (Auto) (50-75) % Lymph % (Auto) (25-40) % [place] % (Auto) (3-14) % Eos % (Auto) (2-4) % Baso % (Auto) (0-2) % Neut # (Auto) (7339-5206) /uL Lymph # (Auto) (6407-6139) /uL [place] # (Auto) (0-900) /uL Eos # (Auto) (0-450) /uL Baso # (Auto) (0-100) /uL D-Dimer (<230) ng/mL ABG pH (7.35-7.45) ABG pCO2 (35-45) mmHg ABG pO2 (80-100) mmHg ABG HCO3 (22-26) mmol/L ABG Total CO2 (21-31) mmol/L ABG O2 Saturation (95-100) % ABG Base Excess (-2-2) mmol/L FiO2 Sodium (137-145) mmol/L Potassium (3.4-5.1) mmol/L Chloride (98-107) mmol/L Carbon Dioxide (22-32) mmol/L BUN (9-20) mg/dL Creatinine (0.66-1.25) mg/dL Estimated GFR (>60) mL/min BUN/Creatinine Ratio (6-22) Glucose (80-110) mg/dL Lactate 10.0 H* (0.7-2.1) mmol/L Calcium (8.4-10.2) mg/dL Ferritin (18-464) ng/mL Total Bilirubin (0.2-1.3) mg/dL AST (17-59) IU/L ALT (<50) IU/L Alkaline Phosphatase (38-126) U/L Total Creatine Kinase (55-170) U/L CK-MB (CK-2) (<2.37) ng/mL CK-MB (CK-2) Rel Index (1.5-5.0) % Troponin I (0.01-0.034) ng/mL C-Reactive Protein (<1.0) mg/dL NT-Pro-B Natriuret Pep (<450) pg/mL Total Protein (6.3-8.2) g/dL Albumin (3.5-5.0) g/dL Globulin (1.7-4.1) g/dL Albumin/Globulin Ratio (1.0-2.8) Procalcitonin 0.95 H (<0.5) ng/mL COVID-19 PCR (Negative) Influenza A (RT-PCR) Flu a negative (NEGATIVE) Influenza B (RT-PCR) Flu b negative (NEGATIVE) 08/03/19 08/03/19 08/03/19 Range/Units 15:50 16:02 18:15 WBC (4.5-11.0) X10^3/uL RBC (4.5-5.9) X10^6/uL Hgb (13.5-17.5) g/dL Hct (41-53) % MCV (80-100) fL MCH (26-34) PG MCHC (30-36) % RDW (11.6-14.8) % Plt Count (150-400) X10^3/uL Neut % (Auto) (50-75) % Lymph % (Auto) (25-40) % [place] % (Auto) (3-14) % Eos % (Auto) (2-4) % Baso % (Auto) (0-2) % Neut # (Auto) (9867-9824) /uL Lymph # (Auto) (7777-0910) /uL [place] # (Auto) (0-900) /uL Eos # (Auto) (0-450) /uL Baso # (Auto) (0-100) /uL D-Dimer (<230) ng/mL ABG pH 7.51 H (7.35-7.45) ABG pCO2 21.8 L* (35-45) mmHg ABG pO2 56 L (80-100) mmHg ABG HCO3 17 L (22-26) mmol/L ABG Total CO2 18 L (21-31) mmol/L ABG O2 Saturation 92 L (95-100) % ABG Base Excess -6.0 L (-2-2) mmol/L FiO2 100 Sodium (137-145) mmol/L Potassium (3.4-5.1) mmol/L Chloride (98-107) mmol/L Carbon Dioxide (22-32) mmol/L BUN (9-20) mg/dL Creatinine (0.66-1.25) mg/dL Estimated GFR (>60) mL/min BUN/Creatinine Ratio (6-22) Glucose (80-110) mg/dL Lactate 3.0 H (0.7-2.1) mmol/L Calcium (8.4-10.2) mg/dL Ferritin (18-464) ng/mL Total Bilirubin (0.2-1.3) mg/dL AST (17-59) IU/L ALT (<50) IU/L Alkaline Phosphatase (38-126) U/L Total Creatine Kinase (55-170) U/L CK-MB (CK-2) (<2.37) ng/mL CK-MB (CK-2) Rel Index (1.5-5.0) % Troponin I (0.01-0.034) ng/mL C-Reactive Protein (<1.0) mg/dL NT-Pro-B Natriuret Pep (<450) pg/mL Total Protein (6.3-8.2) g/dL Albumin (3.5-5.0) g/dL Globulin (1.7-4.1) g/dL Albumin/Globulin Ratio (1.0-2.8) Procalcitonin (<0.5) ng/mL COVID-19 PCR Negative (Negative) Influenza A (RT-PCR) (NEGATIVE) Influenza B (RT-PCR) (NEGATIVE) 08/03/19 Range/Units 18:25 WBC (4.5-11.0) X10^3/uL RBC (4.5-5.9) X10^6/uL Hgb (13.5-17.5) g/dL Hct (41-53) % MCV (80-100) fL MCH (26-34) PG MCHC (30-36) % RDW (11.6-14.8) % Plt Count (150-400) X10^3/uL Neut % (Auto) (50-75) % Lymph % (Auto) (25-40) % [place] % (Auto) (3-14) % Eos % (Auto) (2-4) % Baso % (Auto) (0-2) % Neut # (Auto) (8365-5440) /uL Lymph # (Auto) (9948-1450) /uL [place] # (Auto) (0-900) /uL Eos # (Auto) (0-450) /uL Baso # (Auto) (0-100) /uL D-Dimer (<230) ng/mL ABG pH 7.46 H (7.35-7.45) ABG pCO2 30.6 L (35-45) mmHg ABG pO2 89 (80-100) mmHg ABG HCO3 22 (22-26) mmol/L ABG Total CO2 23 (21-31) mmol/L ABG O2 Saturation 98 (95-100) % ABG Base Excess -2.0 (-2-2) mmol/L FiO2 60 Sodium (137-145) mmol/L Potassium (3.4-5.1) mmol/L Chloride (98-107) mmol/L Carbon Dioxide (22-32) mmol/L BUN (9-20) mg/dL Creatinine (0.66-1.25) mg/dL Estimated GFR (>60) mL/min BUN/Creatinine Ratio (6-22) Glucose (80-110) mg/dL Lactate (0.7-2.1) mmol/L Calcium (8.4-10.2) mg/dL Ferritin (18-464) ng/mL Total Bilirubin (0.2-1.3) mg/dL AST (17-59) IU/L ALT (<50) IU/L Alkaline Phosphatase (38-126) U/L Total Creatine Kinase (55-170) U/L CK-MB (CK-2) (<2.37) ng/mL CK-MB (CK-2) Rel Index (1.5-5.0) % Troponin I (0.01-0.034) ng/mL C-Reactive Protein (<1.0) mg/dL NT-Pro-B Natriuret Pep (<450) pg/mL Total Protein (6.3-8.2) g/dL Albumin (3.5-5.0) g/dL Globulin (1.7-4.1) g/dL Albumin/Globulin Ratio (1.0-2.8) Procalcitonin (<0.5) ng/mL COVID-19 PCR (Negative) Influenza A (RT-PCR) (NEGATIVE) Influenza B (RT-PCR) (NEGATIVE) ABG Data ABG results: Patient's ABG shows a pH of 7.507, CO2 of 21 with a PO2 of 56 and a bicarb of 17 and base excess of -6. repeat ABG shows pH is 7.46, CO 30, O2 89, bicarb 21 patient has had improvement in there ABG. Patient does continue to have alkalosis but has improved with CO2 improving. Attestation: I personally reviewed and interpreted this ABG as follows: Interpretation: Likely primary respiratory alkalosis. Imaging Data Chest x-ray: Radiologist's Impression: [address] [id number] XRay Report Signed Patient: Camron Burton DMR#: [id number] : 5Acct:[id number] Age/Sex: 74 / MDate of Service: 08/03/19 Loc: ED Accession Number: [id number] Procedure: XR chest 1V Ordering Provider: Anita Rojas D.O. PROCEDURE: XR CHEST 1V INDICATIONS: flu-like symptoms TECHNIQUE: One view of the chest was acquired. COMPARISON: [facility], CT, CT CHEST WITHOUT CONTRAST, 04/27/2018, 8:24. [facility], CR, XR CHEST 2 VIEWS, 03/16/2018, 17:16. FINDINGS: Surgical changes and devices: None. Lungs and pleura: There is background changes of chronic obstructive pulmonary physiology and interstitial coarsening. There is now diffuse bilateral ill-defined opacities without focal consolidations. No pneumothorax. No substantial pleural effusion. Mediastinum: Mediastinal contours appear normal. Heart size is normal. Bones and chest wall: No suspicious bony lesions. Overlying soft tissues appear unremarkable. IMPRESSION: 1. Interval development of diffuse bilateral ill-defined opacities which may represent an infectious/inflammatory process with viral or atypical organism most likely. No focal consolidations. 2. Background pulmonary emphysematous changes and chronic interstitial disease. Dictated by: Fredy Pozo M.D. on 08/03/2019 at 16:17 Approved by: Fredy Pozo M.D. on 08/03/2019 at 16:20 CT scan - chest: Radiologist's Impression: [address] [id number] [address] Scan Report Signed Patient: Camron Burton [facility]#: [id number] : 5Acct:[id number] Age/Sex: 74 / MDate of Service: 08/03/19 Loc: ED Accession Number: [id number] Procedure: CT angio chest PE protocol Ordering Provider: Anita Rojas D.O. PROCEDURE: CT ANGIO CHEST PE PROTOCOL INDICATIONS: covid vs pe vs other. hx interstitial lung disease. TECHNIQUE: After the administration of intravenous contrast, 2 mm thick sections acquired from the pulmonary apices to the posterior costophrenic angles. 3-dimensional maximum intensity projection (MIP) coronal and sagittal reformats were then acquired through the thorax. For radiation dose reduction, the following was used: automated exposure control, adjustment of mA and/or kV according to patient size. COMPARISON: [facility], CT, CT CHEST WITHOUT CONTRAST, 04/27/2018, 8:24. FINDINGS: Image quality: Diagnostic. Pulmonary arteries: Pulmonary arteries are normal in size, and demonstrate no intraluminal filling defects to suggest central pulmonary embolism. Lungs and pleura: Groundglass attenuation is identified throughout the lungs, which is predominantly seen within the subpleural regions with associated intralobular septal thickening. This has developed in the interim. There may be areas of developing consolidation within the posterior bilateral lower lobes. No effusion or pneumothorax is appreciated. Mediastinum: The heart is normal in size. There is no significant pericardial effusion. Coronary and aortic atherosclerosis is evident. There is no aneurysm of the thoracic aorta. No evidence of dissection is appreciated. There is no mediastinal mass. Multiple enlarged mediastinal lymph nodes are identified with the largest located within the subcarinal region. These lymph nodes have increased in size in the interim. The largest likely represents a conglomeration of multiple smaller lymph nodes and measured up to 3.8 x 1.7 cm (image 83, series 4), previously measuring up to 3.4 x 1.1 cm. Small hilar lymph nodes are evident. Bones and chest wall: No suspicious bony lesions. Ribs and thoracic spine appear intact throughout. Thyroid gland is not adequately evaluated. No axillary or supraclavicular adenopathy. Abdomen: The included portions of the upper abdomen demonstrate cholelithiasis. There. The renal parenchymal cysts. There is a hypodensity identified within the uncinate process of the pancreas that is not adequately characterized. IMPRESSION: 1. No evidence of pulmonary emboli. 2. Peripheral groundglass density throughout the lungs may be on the basis of atypical pulmonary edema. An infectious process could also result in this appearance. Superimposed chronic interstitial changes probably are present. 3. Enlarged mediastinal lymph nodes have increased since 04/27/18. Followup chest CT in 3 months is recommended. 4. Coronary and aortic atherosclerosis. 5. Hypodensity within the uncinate process of the pancreas is not adequately characterize. A dedicated CT or MRI of the pancreas with contrast is recommended for further evaluation, which may be obtained on a nonemergent basis. 6. Cholelithiasis. Dictated by: Will Crawley M.D. on 08/03/2019 at 16:22 Approved by: Will Crawley M.D. on 08/03/2019 at 16:31 ECG Data Attestation: I personally reviewed and interpreted this ECG as follows: Prior ECG tracings: not available for review Interpretation: Sinus tachycardia with a right bundle-branch block. Patient has inverted T-waves in V1, the 3 and depression in V4. No elevation appreciated. Patient does not have any prior EKGs available. MDM Narrative Medical decision making narrative: Patient comes to department and is hypoxic in the 60's with good pleth and although color is poor patient is mentating well and able to answer majority of questions. He is febrile, tachycardic as well as tachypneic. Patient has a history of being immune compromised secondary to methotrexate. O2 improved fairly quickly with non-rebreather and he was 92% on 15 L. ABG shows a respiratory alkalosis with a pH of 7.5, CO2 of 21 and a PO2 of 56 bicarb of 17. Patient was switched to high-flow at 18 L and states that he does feel improved. He does have some crackles on the left. With recent pandemic there is concern for covid and rapid testing was sent along with influenza. Patient does have a history of chronic tobacco abuse although he states that he has never been told that his O2 was in the 80s or lower than the mid 90s but is likely contributing to his oxygenation issues. Patient does meet septic criteria but at this time as there is high suspicion for covid and recommendations are to limit fluids will not start 30cc/kg bolus. We did give some hydration starting with 500cc/hr bolus. CXR shows patchy bilateral infiltrates. Discussed with hospitalist, patient ddimer is elevated. Discussed potential with hospitalist about treatment for PE versus go ahead and doing angiography is there is high suspicion for coronavirus. They would recommend CT angio at this time. Will continue to monitor in ED obtain rest of patient labs before final decision to keep versus transfer. Patient is full code at this time. Patient white count is elevated with a leftward shift. Procalcitonin is positive as well as elevated CRP. Coag shows a dimer of [address] PE angiography is negative for pulmonary embolism and CT shows peripheral ground-glass densities throughout the lungs which could be atypical edema but infectious process is highly likely particularly with patient's fever. He does have some mediastinal lymph nodes which have increased Xi is a hypodensity in the uncinate process of the pancreas which has been noted on prior imaging and in records. As well as cholelithiasis. Labs show normal electrolytes CO2 is 20, lactate is 10 and has improved to 3. AST is 60, ferritin negative, troponins negative, CRP elevated and BNP is normal and procalcitonin is 0.95. On recheck patient respiratory rate has improved he does not appear to be fatiguing but with his COPD and appears to be bacterial infection he was started on Zosyn, 30 cc Q low bolus was started as patient has been hypotensive. He was given Tylenol followed by Toradol for his fever. Discussed with Dr. bean will defer he Solu-Cortef at this time unless he continues to be hypotensive. And he was started on BiPAP to give him some rest. Dr. Bean accepts for admission to ICU. Critical Care Time Critical Care Time Critical Care Time: Yes Total Critical Care Time: 80 Attestation: The high probability of a clinically significant, sudden or life threatening deterioration of the [pulm/cardiac symptoms] system(s) required my full and direct attention, intervention and personal management. The aggregate critical care time was [] minutes. This time is in addition to time spent performing reported procedures but includes the following: [x] Data Review and interpretation [x] Patient assessment and monitoring of vital signs [x] Documentation [x] Medication orders and management Discharge Plan Departure Patient Disposition: Admitted As Inpatient Clinical Impression: Acute respiratory failure with hypoxia, Sepsis, Pneumonia Admit Date/Time: 08/03/19 18:45 Admit Provider: Sylvia Bean
[2019-08-03] MEDS: ONDANSETRON 4 MG/2 ML INJ IV (16:00)
[2019-08-03] MEDS: SODIUM CHLORIDE 0.9% 1,000 ML 500 ML IV (16:01)
[2019-08-03] MEDS: ACETAMINOPHEN 325 MG TABLET 975 MG PO (16:01)
[2019-08-03 16:07] LABS: Add Manual Diff / Slide Review NO; Basophils Absolute Auto 100 /uL (0-100); Basophils Percent Auto 0.9 % (0-2); Eosinophils Absolute Auto 100 /uL (0-450); Eosinophils Percent Auto 0.3 % (2-4); Hematocrit 44.7 % (41-53); Hemoglobin 14.7 g/dL (13.5-17.5); Lymphocytes Absolute Auto 1700 /uL (1100-4500); Lymphocytes Percent Auto 10.9 % (25-40); Mean Corpuscular HGB Conc 32.9 % (30-36); Mean Corpuscular Hemoglobin 30.9 PG (26-34); Mean Corpuscular Volume 93.8 fL (80-100); Monocytes Absolute Auto 900 /uL (0-900); Monocytes Percent Auto 6.1 % (3-14); Neutrophils Absolute Auto 12400 /uL (1500-7000); Neutrophils Percent Auto 81.8 % (50-75); Platelet Count 309 X10^3/uL (150-400); Red Blood Cell Count 4.76 X10^6/uL (4.5-5.9); Red Cell Distribution Width 17.3 % (11.6-14.8); White Blood Cell Count 15.2 X10^3/uL (4.5-11.0)
[2019-08-03 16:21] LABS: Albumin 4.2 g/dL (3.5-5.0); Albumin Globulin Ratio 1.1 (1.0-2.8); Alkaline Phosphatase 90 U/L (38-126); Aspartate Aminotransferase 60 IU/L (17-59); BUN Creatinine Ratio 20.9 (6-22); Bilirubin Total 0.4 mg/dL (0.2-1.3); Blood Urea Nitrogen 19 mg/dL (9-20); Calcium 10.2 mg/dL (8.4-10.2); Carbon Dioxide 20 mmol/L (22-32); Chloride 99 mmol/L (98-107); Creatine Kinase 214 U/L (55-170); Estimated Glomerular Filt Rate > 60.0 mL/min (>60); Globulin 3.8 g/dL (1.7-4.1); Glucose 173 mg/dL (80-110); HEMOLYSIS < 15 (0-50); Potassium 4.3 mmol/L (3.4-5.1); Sodium 137 mmol/L (137-145)
[2019-08-03 16:28] LABS: Influenza A - CEPHEID Flu A NEGATIVE (NEGATIVE); Influenza B - CEPHEID Flu B NEGATIVE (NEGATIVE)
[2019-08-03 16:29] LABS: Alanine Aminotransferase 25 IU/L (<50); D Dimer > 5250 ng/mL (<230)
[2019-08-03 16:30] LABS: Fractionated Inspired Oxygen 100; HCO3 ABG 17 mmol/L (22-26); Oxygen Saturation ABG 92 % (95-100); PCO2 ABG 21.8 mmHg (35-45); PO2 ABG 56 mmHg (80-100); TCO2 ABG 18 mmol/L (21-31); pH ABG 7.51 (7.35-7.45)
[2019-08-03 16:34] LABS: NT-proBNP (BNP-Adult 18+) 273 pg/mL (<450); Troponin I < 0.012 ng/mL (0.01-0.034)
[2019-08-03 16:37] LABS: CKMB % Relative Index 0.3 % (1.5-5.0); Creatine Kinase MB 0.74 ng/mL (<2.37)
--- NOTE | 2019-08-03 16:41 | DI.CT.S_ITS ---
PROCEDURE: CT ANGIO CHEST PE PROTOCOL INDICATIONS: covid vs pe vs other. hx interstitial lung disease. TECHNIQUE: After the administration of intravenous contrast, 2 mm thick sections acquired from the pulmonary apices to the posterior costophrenic angles. 3-dimensional maximum intensity projection (MIP) coronal and sagittal reformats were then acquired through the thorax. For radiation dose reduction, the following was used: automated exposure control, adjustment of mA and/or kV according to patient size. COMPARISON: [facility], CT, CT CHEST WITHOUT CONTRAST, 04/27/2018, 8:24. FINDINGS: Image quality: Diagnostic. Pulmonary arteries: Pulmonary arteries are normal in size, and demonstrate no intraluminal filling defects to suggest central pulmonary embolism. Lungs and pleura: Groundglass attenuation is identified throughout the lungs, which is predominantly seen within the subpleural regions with associated intralobular septal thickening. This has developed in the interim. There may be areas of developing consolidation within the posterior bilateral lower lobes. No effusion or pneumothorax is appreciated. Mediastinum: The heart is normal in size. There is no significant pericardial effusion. Coronary and aortic atherosclerosis is evident. There is no aneurysm of the thoracic aorta. No evidence of dissection is appreciated. There is no mediastinal mass. Multiple enlarged mediastinal lymph nodes are identified with the largest located within the subcarinal region. These lymph nodes have increased in size in the interim. The largest likely represents a conglomeration of multiple smaller lymph nodes and measured up to 3.8 x 1.7 cm (image 83, series 4), previously measuring up to 3.4 x 1.1 cm. Small hilar lymph nodes are evident. Bones and chest wall: No suspicious bony lesions. Ribs and thoracic spine appear intact throughout. Thyroid gland is not adequately evaluated. No axillary or supraclavicular adenopathy. Abdomen: The included portions of the upper abdomen demonstrate cholelithiasis. There. The renal parenchymal cysts. There is a hypodensity identified within the uncinate process of the pancreas that is not adequately characterized. IMPRESSION: 1. No evidence of pulmonary emboli. 2. Peripheral groundglass density throughout the lungs may be on the basis of atypical pulmonary edema. An infectious process could also result in this appearance. Superimposed chronic interstitial changes probably are present. 3. Enlarged mediastinal lymph nodes have increased since 04/27/18. Followup chest CT in 3 months is recommended. 4. Coronary and aortic atherosclerosis. 5. Hypodensity within the uncinate process of the pancreas is not adequately characterize. A dedicated CT or MRI of the pancreas with contrast is recommended for further evaluation, which may be obtained on a nonemergent basis. 6. Cholelithiasis. Dictated by: Will Crawley M.D. on 08/03/2019 at 16:22 Approved by: Will Crawley M.D. on 08/03/2019 at 16:31
[2019-08-03 16:56] LABS: Ferritin 50 ng/mL (18-464)
[2019-08-03 17:03] LABS: COVID19 -Nasal RAPID Negative (Negative)
[2019-08-03 17:11] LABS: C-Reactive Protein Quant 13.7 mg/dL (<1.0)
[2019-08-03 17:12] LABS: Procalcitonin 0.95 ng/mL (<0.5)
[2019-08-03] MEDS: SODIUM CHLORIDE 0.9% 1,000 ML 1000 ML IV (17:56)
[2019-08-03] MEDS: PIPERACILLIN-TAZO 4.5 GM/100 ML FROZ.PIGGY IV (17:56)
[2019-08-03 18:00] LABS: Reflexed Lactate in 2 Hours Y
[2019-08-03] MEDS: SODIUM CHLORIDE 0.9% 1,000 ML 150 ML IV (18:19)
[2019-08-03] MEDS: KETOROLAC 60 MG/2 ML VIAL 30 MG IV (18:22)
[2019-08-03 18:55] LABS: HCO3 ABG 22 mmol/L (22-26); Oxygen Saturation ABG 98 % (95-100); PCO2 ABG 30.6 mmHg (35-45); PO2 ABG 89 mmHg (80-100); TCO2 ABG 23 mmol/L (21-31); pH ABG 7.46 (7.35-7.45)
[2019-08-03 18:56] LABS: Fractionated Inspired Oxygen 60
[2019-08-03] MEDS: LIDOCAINE 2% (UROJET) 5 ML GEL TOP (19:15)
[2019-08-03 19:17] LABS: Appearance Urine UA CLEAR; Bacteria Urine None Seen; Bilirubin Urine UA NEGATIVE (NEGATIVE); Color Urine UA YELLOW; Glucose Urine UA NEGATIVE (Negative); Ketones Urine UA NEGATIVE (NEGATIVE); Leukocyte Esterase Urine UA NEGATIVE (NEGATIVE); Nitrite Urine UA NEGATIVE (Negative); Occult Blood Urine UA TRACE-LYSED (Negative); Protein Urine UA NEGATIVE (Negative); Urobilinogen Urine UA 0.2 E.U./dL (0.2); WBC Urine None Seen (0-5/HPF)
[2019-08-03 19:26] LABS: Amorphous Sediment Urine 1+; Culture Indicated Urine Cult Not Indicated; Hyaline Casts Urine 5-10/LPF; RBC Urine 0-1/HPF (0-5/HPF); Squamous Epithelial Cell Urine 0-1 /HPF (0-5/HPF)
--- NOTE | 2019-08-03 20:58 | PM.HP.1 ---
History of Present Illness History of Present Illness Date Patient Seen: 08/03/19 Time Patient Seen: 19:45 Chief complaint: trouble breathing Narrative: Camron Burton is a 74-year-old male with history of rheumatoid arthritis on prednisone presented in extremis to the ED today for acute respiratory failure. His symptoms initially started with profound fatigue and muscle aches about 10 days ago. He did not become symptomatic respiratory gutierrez until today and has had fevers. He was nauseous when he arrived at the hospital but that is now resolved. Patient has been isolating himself at home due to having rheumatoid arthritis and being on immune suppressant affects of his prednisone. He states that his has been going shopping for him so she is exposed in the community. Denies chest pain, abdominal pain, dysuria, diarrhea or constipation. History of smoking 5-6 cigarettes a day but will plan to quit. 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, has a history of pulmonary fibrosis. In the emergency department he initially demonstrated with a compensated respiratory alkalosis with a pH of 7.51, a PO2 of 56 mm Hg and a blood oxygen saturation level of 90% of and the patient was placed on BiPAP and improved a pH of 7.46, PaO2 to 89 mm Hg and an oxygen saturation to 90%. He was bolused with IV normal saline and given a initial dose of Zosyn 4.5 mg IV. Patient History Medical History Cataract (Chronic 2015) Chicken pox (Resolved 1949) Colon polyps (Resolved 1999) CTS (carpal tunnel syndrome) (Chronic) GI bleeding (Chronic 2015) Hearing loss (Chronic 2015) Hyperlipidemia (Chronic) Hypothyroidism (Chronic) Measles (Resolved 1951) Mumps (Resolved 1951) Skin cancer (Resolved 2012) Surgical History Anesthesia (Resolved) History of appendectomy (Resolved 2011) History of tonsillectomy (Resolved 1954) Family & Social History Family History Father Liver cancer Mother Lung cancer Brother No problems noted. Brother No problems noted. Brother No problems noted. Daughter No problems noted. Safety & Behavioral: Feels Safe in Current Yes Environment Been Physically Hurt or No Threatened By a Person Tobacco & Substance use: Smoking Status Current every day smoker alcohol intake frequency 0-2 drinks per day Substance Use Type does not use Meds Home Medications and Allergies Home Medications Medication Instructions Recorded Confirmed Type prednisone 5 mg tablet 5 mg PO DAILY 08/15/18 08/03/19 History levothyroxine 50 mcg capsule 50 mcg PO DAILY #90 cap 08/29/18 08/03/19 Rx simvastatin 10 mg tablet 10 mg PO BEDTIME #90 tab 06/30/19 08/03/19 Rx prednisone 2.5 - 5 mg PO DAILY 08/03/19 08/03/19 History Allergies Allergy/AdvReac Type Severity Reaction Status Date / Time No Known Drug Allergies Allergy Verified 03/27/19 09:00 Review of Systems Review of Systems ROS: Yes All systems reviewed with the patient and are negative except as otherwise documented Exam Vital Signs (past 8 hours): - 08/03/19 15:47 08/03/19 16:01 08/03/19 16:07 Temperature 102.8 F H 102.8 F H Pulse Rate 138 H 113 H 113 H Respiratory Rate 50 H 30 H 31 H Blood Pressure 131/74 Blood Pressure [Right Arm] 107/57 L 108/59 L Pulse Oximetry 68 L 89 L 91 08/03/19 16:18 08/03/19 16:20 08/03/19 16:30 Temperature Pulse Rate 109 H 103 H Respiratory Rate 30 H 24 28 H Blood Pressure Blood Pressure [Right Arm] 108/59 L 108/56 L Pulse Oximetry 91 91 08/03/19 17:00 08/03/19 17:15 08/03/19 17:30 Temperature Pulse Rate 96 H 96 H 86 Respiratory Rate 26 H 38 H 23 Blood Pressure Blood Pressure [Right Arm] 122/65 122/65 107/58 L Pulse Oximetry 93 08/03/19 17:55 08/03/19 18:05 08/03/19 18:06 Temperature 103 F H Pulse Rate 90 85 Respiratory Rate 34 H 34 H Blood Pressure Blood Pressure [Right Arm] 85/50 L 98/55 L Pulse Oximetry 91 92 08/03/19 18:22 08/03/19 19:00 08/03/19 19:15 Temperature 103 F H 99.8 F H Pulse Rate 81 Respiratory Rate 31 H Blood Pressure 98/57 L Blood Pressure [Right Arm] 98/57 L Pulse Oximetry 96 08/03/19 19:20 08/03/19 20:20 Temperature 99.8 F H Pulse Rate 67 64 Respiratory Rate 35 H 20 Blood Pressure Blood Pressure [Right Arm] 105/51 L Pulse Oximetry 96 93 Fraction of Inspired Oxygen 50 Oxygen Delivery Method Heated High Flow Oxygen Flow Rate 30 Narrative Exam Narrative: Gen: Alert, oriented, well-developed 74 y.o. male, appears younger than stated age and appears much improved from what was initially presented to us HEENT: normocephalic, atraumatic, conjunctiva clear, sclera non-icteric, oral mucosa pink and moist Neck: supple, full ROM, no JVD, trachea is midline Resp: Lungs with bilateral wheezes in the upper apices, labored when speaking initially on room air and then transitioned over to high-flow oxygen CV: RRR, no murmur or rubs Abd: soft, non-tender, normoactive BTs : Altman catheter draining clear yellow urine Skin: no lesions or rashes, dry and intact Neuro: Alert and oriented X 4 w/no focal deficits Extremities: moves all 4 extremities, is ambulatory, negative Alonzo?s sign Psyche: normal mood and affect. Objective Labs Result Diagrams: 08/03/19 15:50 08/03/19 15:50 Labs: Laboratory Results - last 24 hr 08/03/19 08/03/19 08/03/19 15:50 15:50 15:50 WBC 15.2 H RBC 4.76 Hgb 14.7 Hct 44.7 MCV 93.8 MCH 30.9 MCHC 32.9 RDW 17.3 H Plt Count 309 Neut % (Auto) 81.8 H Lymph % (Auto) 10.9 L Reagan % (Auto) 6.1 Eos % (Auto) 0.3 L Baso % (Auto) 0.9 Neut # (Auto) 52204 H Lymph # (Auto) 1700 Reagan # (Auto) 900 Eos # (Auto) 100 Baso # (Auto) 100 D-Dimer > 5250 H ABG pH ABG pCO2 ABG pO2 ABG HCO3 ABG Total CO2 ABG O2 Saturation ABG Base Excess FiO2 Sodium 137 Potassium 4.3 Chloride 99 Carbon Dioxide 20 L BUN 19 Creatinine 0.91 Estimated GFR > 60.0 BUN/Creatinine Ratio 20.9 Glucose 173 H Lactate Calcium 10.2 Ferritin 50 Total Bilirubin 0.4 AST 60 H ALT 25 Alkaline Phosphatase 90 Total Creatine Kinase 214 H CK-MB (CK-2) 0.74 CK-MB (CK-2) Rel Index 0.3 L Troponin I < 0.012 C-Reactive Protein 13.7 H NT-Pro-B Natriuret Pep 273 Total Protein 8.0 Albumin 4.2 Globulin 3.8 Albumin/Globulin Ratio 1.1 Procalcitonin Urine Color Urine Appearance Urine pH Ur Specific Mckinney Urine Protein Urine Glucose (UA) Urine Ketones Urine Occult Blood Urine Nitrate Urine Bilirubin Urine Urobilinogen Ur Leukocyte Esterase Urine RBC Urine WBC Ur Squamous Epith Cells Amorphous Sediment Urine Bacteria Hyaline Casts Ur Culture Indicated? COVID-19 PCR Influenza A (RT-PCR) Influenza B (RT-PCR) 08/03/19 08/03/19 08/03/19 15:50 15:50 15:50 WBC RBC Hgb Hct MCV MCH MCHC RDW Plt Count Neut % (Auto) Lymph % (Auto) Reagan % (Auto) Eos % (Auto) Baso % (Auto) Neut # (Auto) Lymph # (Auto) Reagan # (Auto) Eos # (Auto) Baso # (Auto) D-Dimer ABG pH ABG pCO2 ABG pO2 ABG HCO3 ABG Total CO2 ABG O2 Saturation ABG Base Excess FiO2 Sodium Potassium Chloride Carbon Dioxide BUN Creatinine Estimated GFR BUN/Creatinine Ratio Glucose Lactate 10.0 H* Calcium Ferritin Total Bilirubin AST ALT Alkaline Phosphatase Total Creatine Kinase CK-MB (CK-2) CK-MB (CK-2) Rel Index Troponin I C-Reactive Protein NT-Pro-B Natriuret Pep Total Protein Albumin Globulin Albumin/Globulin Ratio Procalcitonin 0.95 H Urine Color Urine Appearance Urine pH Ur Specific Mckinney Urine Protein Urine Glucose (UA) Urine Ketones Urine Occult Blood Urine Nitrate Urine Bilirubin Urine Urobilinogen Ur Leukocyte Esterase Urine RBC Urine WBC Ur Squamous Epith Cells Amorphous Sediment Urine Bacteria Hyaline Casts Ur Culture Indicated? COVID-19 PCR Influenza A (RT-PCR) Flu a negative Influenza B (RT-PCR) Flu b negative 08/03/19 08/03/19 08/03/19 15:50 16:02 18:15 WBC RBC Hgb Hct MCV MCH MCHC RDW Plt Count Neut % (Auto) Lymph % (Auto) Reagan % (Auto) Eos % (Auto) Baso % (Auto) Neut # (Auto) Lymph # (Auto) Reagan # (Auto) Eos # (Auto) Baso # (Auto) D-Dimer ABG pH 7.51 H ABG pCO2 21.8 L* ABG pO2 56 L ABG HCO3 17 L ABG Total CO2 18 L ABG O2 Saturation 92 L ABG Base Excess -6.0 L FiO2 100 Sodium Potassium Chloride Carbon Dioxide BUN Creatinine Estimated GFR BUN/Creatinine Ratio Glucose Lactate 3.0 H Calcium Ferritin Total Bilirubin AST ALT Alkaline Phosphatase Total Creatine Kinase CK-MB (CK-2) CK-MB (CK-2) Rel Index Troponin I C-Reactive Protein NT-Pro-B Natriuret Pep Total Protein Albumin Globulin Albumin/Globulin Ratio Procalcitonin Urine Color Urine Appearance Urine pH Ur Specific Mckinney Urine Protein Urine Glucose (UA) Urine Ketones Urine Occult Blood Urine Nitrate Urine Bilirubin Urine Urobilinogen Ur Leukocyte Esterase Urine RBC Urine WBC Ur Squamous Epith Cells Amorphous Sediment Urine Bacteria Hyaline Casts Ur Culture Indicated? COVID-19 PCR Negative Influenza A (RT-PCR) Influenza B (RT-PCR) 08/03/19 08/03/19 18:25 19:10 WBC RBC Hgb Hct MCV MCH MCHC RDW Plt Count Neut % (Auto) Lymph % (Auto) Reagan % (Auto) Eos % (Auto) Baso % (Auto) Neut # (Auto) Lymph # (Auto) Reagan # (Auto) Eos # (Auto) Baso # (Auto) D-Dimer ABG pH 7.46 H ABG pCO2 30.6 L ABG pO2 89 ABG HCO3 22 ABG Total CO2 23 ABG O2 Saturation 98 ABG Base Excess -2.0 FiO2 60 Sodium Potassium Chloride Carbon Dioxide BUN Creatinine Estimated GFR BUN/Creatinine Ratio Glucose Lactate Calcium Ferritin Total Bilirubin AST ALT Alkaline Phosphatase Total Creatine Kinase CK-MB (CK-2) CK-MB (CK-2) Rel Index Troponin I C-Reactive Protein NT-Pro-B Natriuret Pep Total Protein Albumin Globulin Albumin/Globulin Ratio Procalcitonin Urine Color Yellow Urine Appearance Clear Urine pH 5.0 Ur Specific Mckinney 1.010 Urine Protein Negative Urine Glucose (UA) Negative Urine Ketones Negative Urine Occult Blood Trace-lysed Urine Nitrate Negative Urine Bilirubin Negative Urine Urobilinogen 0.2 Ur Leukocyte Esterase Negative Urine RBC 0-1/hpf Urine WBC None seen Ur Squamous Epith Cells 0-1 /hpf Amorphous Sediment 1+ Urine Bacteria None seen Hyaline Casts 5-10/lpf Ur Culture Indicated? Cult not indicated COVID-19 PCR Influenza A (RT-PCR) Influenza B (RT-PCR) Assessment & Plan Assessment & Plan narrative: Camron Burton will be admitted to the ICU for acute respiratory failure, severe sepsis in the setting of bacterial pneumonia, and questionable COVID-19 status. Acute respiratory failure, acute, present on admission -patient was hypoxic with initial sats were in the 70s and he had a respiratory alkalosis on admission, which was corrected with BiPAP in the emergency department -repeat ABGs done in the ED indicated improvement -ABG in the morning -High Flow humidified O2 -Will exercise the low threshold for potential intubation depending on his oxygenation status -If the patient starts desaturating will repeat ABG -Albuterol MDI as needed q.2 hours -Consider IV steroids if the patient develops respiratory failure nonresponsive to oxygenation and albuterol Elevated D-dimer of 5250, acute, present on admission -CT angio of the chest ruled out PE however did indicate he has bilateral ground-glass opacities -Doppler ultrasound of the lower extremities to rule out DVT Sepsis, secondary to probable acute bacterial pneumonia with a procalcitonin of 0.95, present on admission -patient's initial lactate was 10 and improved to 3 after fluid resuscitation in the ED -he was started on IV Zosyn 4.5 q.6 and this will be continued -IV Vanco dosed per pharmacy, start today -Repeat procalcitonin in the morning -Repeat lactate at midnight and again at 5:00 a.m. -IV normal saline at 150 mL/hour, repeat blood pressure is a little softer, I have increased his fluids to 175 mL/hour and will consider a bolus if necessary -Cardiac monitoring in the ICU Hypotension, acute, present on admission -patient is currently receiving fluid resuscitation with normal saline -blood pressure at 19:20 improved to 105/51 and the patient is alert and oriented -will consider Levaphed drip if the patient drops his blood pressure and cannot be maintained with fluid resuscitation Bilateral ground-glass opacities seen on CT of the lungs, unknown if this is an acute versus chronic finding -initial ED screen of COVID-19 was negative, will repeat COVID-19 screen -Airborne and droplet precautions Rheumatoid arthritis, chronic, present on admission -patient will continue home dose of prednisone 7.5 mg p.o. daily Hypothyroidism, chronic, present on admission -continue home dose of levothyroxine 50 mcg p.o. daily History of a right bundle branch block, currently being worked up by Cardiology -patient underwent a stress test but was unable to complete -he will be following up with Dr. Chen, his slat grader Consults: consult and involvement is appreciated. Patient is inpatient status as his stay is likely to exceed 2 midnights. FEN: IV normal saline right now running at 175 mL/hour, low-sodium diet, CMP in the am. VTE prophylaxis: Bilateral SCDs Enoxaparin 40 mg subQ daily Dispo: Unknown at this time Code Status: Full code reviewed per advanced directive provided by the patient COVID-19 COVID-19 status: Result pending Result date/Date tested (Pos, Neg/Pending): 08/03/19
[2019-08-03] MEDS: SIMVASTATIN 10 MG TABLET PO (21:27)
[2019-08-03] MEDS: VANCOMYCIN 1,250 MG in SODIUM CHLORIDE 0.9% 250 ML IV (21:27)
--- NOTE | 2019-08-03 22:44 | PC.NURSE ---
2129 - Pt c/o catheter, urgency. Assess and advanced. 325cc out. Continues to be a-febril. 98.9 oral. Able to take PO without difficulty. ABX infusing. Repeat Covid swab obtained per MD order. Educated to need for sputum sample. Specimen cup available. 1954 - Pt to the room from ER. Airborne precautions. Pt arrived in room on 6L NC sat 97%. RT to business change manager to HHF. Bi-pap in room and available if needed. Pt alert and oriented. Denies pain. C/o curtis catheter discomfort. Draining. Asking appropriate questions. VSS. Oriented to room routine and treatment plan. Call light in reach.
[2019-08-03 23:45] LABS: Adenovirus Not Detected (Not Detect); Bordetella pertussis Not Detected (Not Detect); Chlamydophila pneumoniae Not Detected (Not Detect); Coronavirus 229E Not Detected (Not Detect); Coronavirus HKU1 Not Detected (Not Detect); Coronavirus NL 63 Not Detected (Not Detect); Coronavirus OC43 Not Detected (Not Detect); Human Metapneumovirus Not Detected (Not Detect); Human Rhinovirus/Enterovirus Not Detected (Not Detect); Influenza A Not Detected (Not Detect); Influenza B Not Detected (Not Detect); Mycoplasma pneumoniae Not Detected (Not Detect); Parainfluenza Virus 1 Not Detected (Not Detect); Parainfluenza Virus 2 Not Detected (Not Detect); Parainfluenza Virus 3 Not Detected (Not Detect); Parainfluenza Virus 4 Not Detected (Not Detect); Respiratory Syncytial Virus Not Detected (Not Detect)
[2019-08-03] MEDS: ALBUTEROL HFA 60 PUFF/8 GM INH INH (23:46)
[2019-08-04] VITALS (58 sets, daily range): BP systolic 71–168; BP diastolic 48–83; PULSE 44–123; RESP 14–44; TEMP 37.2–39.3; O2SAT 70–100
[2019-08-04] MEDS: PIPERACILLIN-TAZO 4.5 GM/100 ML FROZ.PIGGY IV ×4 (00:16→19:07)
[2019-08-04 00:27] LABS: Add Manual Diff / Slide Review NO; Basophils Absolute Auto 100 /uL (0-100); Basophils Percent Auto 0.9 % (0-2); Eosinophils Absolute Auto 0 /uL (0-450); Hematocrit 35.6 % (41-53); Hemoglobin 12.1 g/dL (13.5-17.5); Lymphocytes Absolute Auto 700 /uL (1100-4500); Lymphocytes Percent Auto 6.4 % (25-40); Mean Corpuscular Hemoglobin 31.6 PG (26-34); Mean Corpuscular Volume 92.9 fL (80-100); Monocytes Absolute Auto 500 /uL (0-900); Monocytes Percent Auto 4.7 % (3-14); Neutrophils Absolute Auto 9200 /uL (1500-7000); Platelet Count 214 X10^3/uL (150-400); Red Blood Cell Count 3.83 X10^6/uL (4.5-5.9); Red Cell Distribution Width 17.2 % (11.6-14.8); White Blood Cell Count 10.4 X10^3/uL (4.5-11.0)
[2019-08-04 00:29] LABS: Alanine Aminotransferase 17 IU/L (<50); Albumin 2.9 g/dL (3.5-5.0); Albumin Globulin Ratio 0.9 (1.0-2.8); Alkaline Phosphatase 67 U/L (38-126); Aspartate Aminotransferase 32 IU/L (17-59); BUN Creatinine Ratio 28.4 (6-22); Bilirubin Total 0.3 mg/dL (0.2-1.3); Blood Urea Nitrogen 21 mg/dL (9-20); Calcium 8.9 mg/dL (8.4-10.2); Carbon Dioxide 23 mmol/L (22-32); Chloride 105 mmol/L (98-107); Estimated Glomerular Filt Rate > 60.0 mL/min (>60); Globulin 3.1 g/dL (1.7-4.1); Glucose 148 mg/dL (80-110); HEMOLYSIS < 15 (0-50); Potassium 4.5 mmol/L (3.4-5.1); Sodium 134 mmol/L (137-145)
[2019-08-04 00:45] LABS: Procalcitonin 6.06 ng/mL (<0.5)
[2019-08-04 01:47] LABS: Lactate (Lactic Acid) 1.4 mmol/L (0.7-2.1)
[2019-08-04] MEDS: SODIUM CHLORIDE 0.9% 1,000 ML 175 ML IV (02:24)
[2019-08-04 04:54] LABS: Add Manual Diff / Slide Review NO; Basophils Absolute Auto 0 /uL (0-100); Basophils Percent Auto 0.3 % (0-2); Eosinophils Absolute Auto 0 /uL (0-450); Eosinophils Percent Auto 0.1 % (2-4); Hematocrit 35.2 % (41-53); Hemoglobin 11.9 g/dL (13.5-17.5); Lymphocytes Absolute Auto 1000 /uL (1100-4500); Lymphocytes Percent Auto 10.8 % (25-40); Mean Corpuscular HGB Conc 33.9 % (30-36); Mean Corpuscular Hemoglobin 31.6 PG (26-34); Monocytes Absolute Auto 300 /uL (0-900); Monocytes Percent Auto 3.4 % (3-14); Neutrophils Absolute Auto 8000 /uL (1500-7000); Neutrophils Percent Auto 85.4 % (50-75); Platelet Count 220 X10^3/uL (150-400); Red Blood Cell Count 3.78 X10^6/uL (4.5-5.9); Red Cell Distribution Width 16.9 % (11.6-14.8); White Blood Cell Count 9.3 X10^3/uL (4.5-11.0)
[2019-08-04] MEDS: LEVOTHYROXINE 50 MCG TABLET PO (04:58)
[2019-08-04 05:00] LABS: Alanine Aminotransferase 15 IU/L (<50); Albumin 2.8 g/dL (3.5-5.0); Albumin Globulin Ratio 0.9 (1.0-2.8); Alkaline Phosphatase 61 U/L (38-126); Aspartate Aminotransferase 30 IU/L (17-59); BUN Creatinine Ratio 28.6 (6-22); Bilirubin Total 0.3 mg/dL (0.2-1.3); Blood Urea Nitrogen 20 mg/dL (9-20); Calcium 8.6 mg/dL (8.4-10.2); Carbon Dioxide 24 mmol/L (22-32); Chloride 106 mmol/L (98-107); Estimated Glomerular Filt Rate > 60.0 mL/min (>60); Glucose 125 mg/dL (80-110); HEMOLYSIS < 15 (0-50); Potassium 4.3 mmol/L (3.4-5.1); Sodium 135 mmol/L (137-145); Total Protein 5.8 g/dL (6.3-8.2)
[2019-08-04] MEDS: ALBUTEROL HFA 60 PUFF/8 GM INH INH ×2 (06:30→15:09)
--- NOTE | 2019-08-04 07:37 | PC.NURSE ---
0645 - Patient has been 90-96% on HHF throughout the night. Now is satting 88% with some difficulty taking deep breaths. RT notified and came and assessed patient. RT turned HHF up to 55% FiO2 at 30L. Patient resting peacefully in bed and encouraged to take deep breaths.
--- NOTE | 2019-08-04 08:12 | DI.RAD.S_ITS ---
PROCEDURE: XR CHEST 1V INDICATIONS: ET tube placement TECHNIQUE: One view of the chest was acquired. COMPARISON: [facility], CR, XR CHEST 1V, 08/03/2019, 15:59. FINDINGS: Surgical changes and devices: Endotracheal tube is present approximately 3.3 cm superior to the myla. Lungs and pleura: Bilateral pulmonary opacities are present with interval progression compared to prior exam. There is blunting of the costophrenic angles bilaterally. Mediastinum: Mediastinal contours appear normal. Heart size is normal. Bones and chest wall: No suspicious bony lesions. Overlying soft tissues appear unremarkable. IMPRESSION: 1. Endotracheal tube is above. 2. Bilateral pulmonary opacities, progressive compared to prior exam. Overall appearance is concerning for pneumonia. Smaller is a superimposed edema and/or effusions cannot be excluded. Dictated by: Carolann Adam M.D. on 08/04/2019 at 8:53 Approved by: Carolann Adam M.D. on 08/04/2019 at 8:54
[2019-08-04] MEDS: propofoL 1,000 MG/100 ML VIAL 6.993 MG IV (08:15)
--- NOTE | 2019-08-04 08:24 | PM.PROC.1 ---
Procedures Date/Time Date of procedure: 08/04/19 Time of procedure: 08:10 Intubation Time out performed: Yes Sedative: other (propofol) Mg given: 150 Paralytic: succinylcholine Mg given: 120 Laryngoscope: fiber optic video scope (Glidescope LoPro S3) ET tube size: 8 ET tube uncuffed: No Tube secured depth (cm): 22 Tube secured location: teeth Tube placement confirmation: visualized tube passing through cords, equal breath sounds bilaterally, no breath sounds over epigastrium and confirmation by capnometry Patient tolerated procedure: well Intubation complications: none Additional comments: Patient with increasing hypoxia and respiratory failure despite non invasive positive pressure oxygenation. COVID negative per previous testing, but re-test pending. CXR with bilateral infiltrates consistent with pneumonia. Cardiac workup negative. 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 No history of intubation, difficult or otherwise. No questions, understands and wishes to proceed. Patient was left sitting in ICU bed, High flow NIPPV used for pre-oxygenation (exhalation filter in place). IV induction. Grade 1 view with glidescope, ETT passed with stylette. (+) EtCO2 color change. Additional 50mg propofol given while sedation started. No acute complications. No further requirements from ICU team. Lachelle Anna MD Anesthesiologist
[2019-08-04] MEDS: LORazepam 2 MG/ML INJ (08:30)
[2019-08-04] MEDS: fentaNYL 100 MCG/2 ML INJ (08:30)
--- NOTE | 2019-08-04 09:02 | DI.ECHO.S_ITS ---
[facility]---------+ [facility] +---------+ : : [address], [place] : : : : [id number] : : : : Phone: [phone] Echocardiogram Report + + :Name: DANIEL KHALIL Study Date: 08/04/2019 Height: 72 in : :[facility] Exam Location: [facility] Weight: 171 lb: : Gender: Male BSA: 2.0 m2 : :: 1945 Age: 74 yrs BP: 89/51 mmHg: :Reason For Study: Acute respiratory failure : :Ordering Physician: Shahzad : :Hospitalist Performed By: Catrina Page : :Referring: ROCÍO MCKENZIE : + + Interpretation Summary The ejection fraction is estimated to be 65-70%. There is no significant valvular heart disease. Compared to the prior echo report on 02/14, there is no significant change. Procedure: A two-dimensional transthoracic echocardiogram with color flow and Doppler was performed. The study quality was technically difficult. Comparison is made with the echocardiogram of 02/17/2019. The patient was in normal sinus rhythm during the exam. Left Ventricle: The left ventricle is normal in size and wall thickness. The ejection fraction is estimated to be 65-70%. The left ventricle is hyperdynamic. There are no obvious focal wall motion abnormalities noted but poor endocardial definition reduces the sensitivity for the detection of such. Diastolic function could not be accurately assessed due to paced rhythm. Right Ventricle: The right ventricle is not well visualized but appears to be at least mildly to moderately dilated with normal systolic function. There is a pacemaker lead in the right ventricle. Atria: The left atrium is not well visualized. Right atrium not well visualized. There is no Doppler evidence for an interatrial shunt. Mitral Valve: The mitral valve is grossly normal. There is trace mitral regurgitation. Aortic Valve: The aortic valve is trileaflet. The aortic valve opens well. No aortic regurgitation is present. Tricuspid Valve: The tricuspid valve is normal in structure and function. There is trace tricuspid regurgitation. Right ventricular systolic pressure is estimated to be 18.9 mmHg plus the clinically estimated CVP which cannot be estimated on this exam. Pulmonic Valve: The pulmonic valve is not well seen, but is grossly normal. Great Vessels: The aortic root is not well visualized but is probably normal size. The ascending aorta could not be visualized. The pulmonary artery is normal size. Inspiratory collapse cannot be assessed because of mechanical ventilation, thus CVP cannot be estimated.. Pericardium/ Pleura There is no pericardial effusion. There is no pleural effusion. MMode/2D Measurements & Calculations LVIDd: 4.1 cm LVOT diam: 2.2 cm LVIDs: 3.0 cm Ao root diam: 3.2 cm FS: 26.2 % IVSd: 0.47 cm LVPWd: 0.72 cm LV foster. diameter/BSA (cm/m^2): 2.1 LV sys. diameter/BSA (cm/m^2): 1.5 LA A2 area: 20.4 cm2 IVC diam: 1.6 cm RVD1 (basal): 5.0 cm Doppler Measurements & Calculations Ao V2 max: 145.2 cm/sec LVOT Max Bulmaro: 126.7 cm/sec Ao V2 mean: 106.5 cm/sec LV V1 max P.4 mmHg Ao max P.4 mmHg LV V1 VTI: 23.2 cm Ao mean P.0 mmHg MECHE(I,D): 3.4 cm2 Ao V2 VTI: 26.5 cm MECHE(V,D): 3.4 cm2 sev ratio: 0.88 MECHE indexed to BSA (cm^2/m^2): 1.7 MV E max bulmaro: 52.7 cm/sec TR max bulmaro: 217.4 cm/sec MV A max bulmaro: 63.9 cm/sec TR max P.9 mmHg MV E/A: 0.82 PA V2 max: 94.1 cm/sec Med Peak E' Bulmaro: 5.5 cm/sec PA V2 mean: 71.7 cm/sec E/E' med: 9.5 PA mean P.2 mmHg Lat Peak E' Bulmaro: 4.3 cm/sec PA Accel Time: 0.09 sec E/E' lat: 12.3 E/e' average: 10.9 MV dec time: 0.36 sec SV(LVOT): 90.0 ml Reading Physician:01:13 PM
--- NOTE | 2019-08-04 09:04 | PC.NURSE ---
Addendum entered by Owen Lux R.N. 08/04/19 14:31: ~1130 RT made changes to vent- 60% FIO2 PEEP 12 RR 16 TV 480. Plan to repeat ABG around 1300. Continues with trending low BPs (see flowsheet). Dr. Pride is aware. 1315- ABG obtained by RT. Placed OGT per order. Reviewed previous CXR with Dr. Pride to see if we needed to advance ETT any further. Dr. Pride states ETT is in a satisfactory position- no need to advance. Placed order for CXR to confirm OGT placement per protocol. Clarified if PO meds can be given per tube. Clarified noon labs . Orders modified per TORB. Original Note: 0715- Receiving report from NOC RN. Noted pt with decreased O2 sats to 70s%. RR 40s. Called in to room to check on patient. Pt is AO and reporting shortness of breath. I feel like I can't get enough air. Entered room and positioned pt to upright. Pt using accessory muscles to breathe and is breathless with 1-2 words, diaphoretic. Repositioned upright in bed and titrated FIO2 on HHFNC to 70% without improvement in SPO2 or work of breathing. Lung boo are slightly diminished but clear bilaterally. RT to bedside placed pt on bipap and titrated to up to 100% FIO2 RR 16 and pressures of 15/8. After a few minutes, pt is able to recover sats to 89%. He is noted to be shaking, reporting chills. Temp 98.4 Oral and [address] Pride and reported findings. Dr. Pride to bedside and instructed to notify anesthesia for intubation. Dr. Anna to bedside pushed induction/sedation meds (see event note). CXR obtained post intubation. Dr. Pride at bedside gave verbal order to start propofol for sedation and administer 50 mcg fentanyl IV and 2 mg ativan IV for pt with rass +2, frequently coughing, SPO2 70s-80s%, overbreathing ventilator, and bringing arms up toward ETT. VORB to place soft wrist restraints. CXR Report shows ETT 3.3 cm above myla. RT advanced ETT to 28 at the lip. Noted trending BPs to be low. Dr. Pride aware- states he suspects fluid volume overload and would like to continue to monitor BPs and titrate sedation for RASS -2. Vent settings titrated to 100 % FIO2, PEEP 14, RR 16, TV 480.
[2019-08-04] MEDS: fentaNYL 1,000 MCG in DEXTROSE 5% IN WATER 250 ML 20.979 ML IV (09:21)
[2019-08-04] MEDS: propofoL 200 MG/20 ML VIAL IV (09:23)
[2019-08-04] MEDS: VANCOMYCIN 1,250 MG in SODIUM CHLORIDE 0.9% 250 ML IV ×2 (09:23→22:43)
[2019-08-04] MEDS: ENOXAPARIN 40 MG/0.4 ML SYRINGE SUBCUT (09:30)
[2019-08-04 09:35] LABS: HCO3 ABG 21 mmol/L (22-26); PO2 ABG 60 mmHg (80-100); TCO2 ABG 22 mmol/L (21-31); pH ABG 7.35 (7.35-7.45)
[2019-08-04 09:36] LABS: Fractionated Inspired Oxygen 100; Oxygen Saturation ABG 90 % (95-100)
--- NOTE | 2019-08-04 10:14 | DI.RAD.S_ITS ---
PROCEDURE: XR CHEST FOR PICC 1V INDICATIONS: PICC LINE PLACEMENT CONFIRMATION COMPARISON: [facility], CR, XR CHEST 1V, 08/04/2019, 8:13. FINDINGS: PICC was placed by the intravenous therapy team from the right side. Fluoroscopic spot film demonstrates the tip of PICC projecting to the area of distal SVC. Diffuse opacification of the lungs not significantly changed. ET tube projects approximately 2.6 cm superior to the myla. IMPRESSION: Tip of PICC projects to the area of distal SVC Dictated by: Haleigh Amaya MD, PhD on 08/04/2019 at 11:06 Approved by: Haleigh Amaya MD, PhD on 08/04/2019 at 11:07
--- NOTE | 2019-08-04 11:40 | P.PN_ITS ---
Subjective Subjective Date Patient Seen: 08/04/19 Time Patient Seen: 07:40 Interval history: Camron Burton is a 74-year-old male with history of rheumatoid arthritis on prednisone, hyperlipidemia, h/o PPM, and hypothyroidism who presented with shortness of breath. He was admitted with acute respiratory failure. He was seen and evaluated this morning and throughout the course of the day. Early this morning was alerted by nursing staff the patient was continuing to desaturate on BiPAP therapy. He complained of shortness of breath and tiredness but denied any chest pain or palpitations. He denied any abdominal pain, nausea, vomiting, recent diarrhea. He did not tolerate high- flow nasal cannula or BiPAP therapy, and continue to desaturate. He was very ta chypneic and in respiratory distress and the decision was made to intubate him. After his intubation he desaturated for quite a while but appeared quite uncomfortable. His saturations improved with increased sedation. Immediately after intubation he was requiring 100% FiO2 and a PEEP of 12, and as of this afternoon he is down to 50% FiO2. His acute decompensation may be secondary to fluid resuscitation in the setting admission with sepsis. Echocardiogram today revealed a normal ejection fraction but some evidence of volume overload. I have ordered him some Lasix, and he may require some pressure support and wrist diurese him. He also had a run of a supraventricular tachycardia and a troponin is currently pending. His lactate from admission of 10 has improved to normal as of this morning. His UA was negative. COVID-19 was initially negative in the emergency room with a rapid test, and repeat has been sent off to [place]. Viral panel has also been done and was negative. Exam Vital Signs (past 8 hours): - 08/04/19 04:00 08/04/19 05:00 08/04/19 06:00 Temperature Pulse Rate 44 L 70 50 L Respiratory Rate 21 Blood Pressure 120/59 L 108/66 118/56 L Pulse Oximetry 93 08/04/19 06:30 08/04/19 07:00 08/04/19 07:16 Temperature 99.0 F Pulse Rate 58 L 71 83 Respiratory Rate 24 26 H 35 H Blood Pressure 141/70 H 140/74 Pulse Oximetry 91 84 L 75 L 08/04/19 07:20 08/04/19 07:30 08/04/19 07:40 Temperature Pulse Rate 97 H 81 102 H Respiratory Rate 36 H 32 H 35 H Blood Pressure Pulse Oximetry 70 L 92 89 L 08/04/19 08:00 08/04/19 08:06 08/04/19 08:09 Temperature Pulse Rate 104 H 111 H 123 H Respiratory Rate 34 H 16 20 Blood Pressure 139/69 143/72 H 168/83 H Pulse Oximetry 93 94 95 08/04/19 08:15 08/04/19 08:30 08/04/19 08:39 Temperature Pulse Rate 118 H 101 H 92 H Respiratory Rate 26 H 29 H 26 H Blood Pressure 146/75 H 95/54 L 78/48 L Pulse Oximetry 86 L 77 L 83 L 08/04/19 08:45 08/04/19 08:53 08/04/19 09:10 Temperature Pulse Rate 88 88 86 Respiratory Rate 28 H 23 28 H Blood Pressure 83/53 L 83/50 L Pulse Oximetry 86 L 89 L 93 08/04/19 09:20 08/04/19 10:00 08/04/19 10:30 Temperature Pulse Rate 80 74 75 Respiratory Rate 27 H 22 23 Blood Pressure 74/51 L 118/62 Pulse Oximetry 98 100 99 08/04/19 11:00 Temperature Pulse Rate 63 Respiratory Rate 20 Blood Pressure 89/54 L Pulse Oximetry 100 Fraction of Inspired Oxygen 100 Oxygen Delivery Method Heated High Flow Oxygen Flow Rate 30 Narrative Exam Narrative: GENERAL APPEARANCE: Acutely ill-appearing elderly male, in respiratory distress with a BiPAP mask. SKIN: Inspection of the skin reveals no rashes, ulcerations or petechiae. HEENT: Normocephalic atraumatic, extraocular muscles are intact, oropharynx is clear and mucous membranes are moist, neck is supple without adenopathy NECK: Supple and symmetric. There was no thyroid enlargement, and no tenderness, or masses were felt. CHEST: Normal AP diameter and normal contour without any kyphoscoliosis. LUNGS: Auscultation of the lungs revealed bibasilar rales, no wheezing throughout. CARDIOVASCULAR: Tachycardic, regular rhythm without murmurs, rubs, gallops. ABDOMEN: Soft and nontender with normal bowel sounds. No ascites was noted. MUSCULOSKELETAL: There was no tenderness or effusions noted. Muscle strength and tone were normal. EXTREMITIES: No cyanosis, clubbing or edema. NEUROLOGIC: Alert and oriented x 3. Anxious and in distress. Strength is +5/5 in the Upper Extremities and Lower Extremities Bilaterally. Sensation to touch was normal. Prior to intubation. Objective Labs Result Diagrams: 08/04/19 13:45 08/04/19 13:45 Labs: Laboratory Results - last 24 hr 08/03/19 08/03/19 08/03/19 15:50 15:50 15:50 WBC 15.2 H RBC 4.76 Hgb 14.7 Hct 44.7 MCV 93.8 MCH 30.9 MCHC 32.9 RDW 17.3 H Plt Count 309 Neut % (Auto) 81.8 H Lymph % (Auto) 10.9 L [place] % (Auto) 6.1 Eos % (Auto) 0.3 L Baso % (Auto) 0.9 Neut # (Auto) 65498 H Lymph # (Auto) 1700 [place] # (Auto) 900 Eos # (Auto) 100 Baso # (Auto) 100 D-Dimer > 5250 H ABG pH ABG pCO2 ABG pO2 ABG HCO3 ABG Total CO2 ABG O2 Saturation ABG Base Excess FiO2 Sodium 137 Potassium 4.3 Chloride 99 Carbon Dioxide 20 L BUN 19 Creatinine 0.91 Estimated GFR > 60.0 BUN/Creatinine Ratio 20.9 Glucose 173 H Lactate Calcium 10.2 Ferritin 50 Total Bilirubin 0.4 AST 60 H ALT 25 Alkaline Phosphatase 90 Total Creatine Kinase 214 H CK-MB (CK-2) 0.74 CK-MB (CK-2) Rel Index 0.3 L Troponin I < 0.012 C-Reactive Protein 13.7 H NT-Pro-B Natriuret Pep 273 Total Protein 8.0 Albumin 4.2 Globulin 3.8 Albumin/Globulin Ratio 1.1 Procalcitonin Urine Color Urine Appearance Urine pH Ur Specific [place] Urine Protein Urine Glucose (UA) Urine Ketones Urine Occult Blood Urine Nitrate Urine Bilirubin Urine Urobilinogen Ur Leukocyte Esterase Urine RBC Urine WBC Ur Squamous Epith Cells Amorphous Sediment Urine Bacteria Hyaline Casts Ur Culture Indicated? Nasal Screen MRSA (PCR) Chlamy pneumoniae PCR Adenovirus (PCR) B.parapertussis DNA PCR Coronavirus OC43 (PCR) Coronavirus HKU1 (PCR) Coronavirus 229E (PCR) COVID-19 PCR Coronavirus NL63 (PCR) Human Metapneumovir PCR Influenza A (RT-PCR) Influenza Type A (PCR) Influenza B (RT-PCR) Influenza Type B (PCR) M. pneumoniae (PCR) Parainfluenza 1 (PCR) Parainfluenza 2 (PCR) Parainfluenza 3 (PCR) Parainfluenza 4 (PCR) RSV (PCR) Entero/Rhino (PCR) 08/03/19 08/03/19 08/03/19 15:50 15:50 15:50 WBC RBC Hgb Hct MCV MCH MCHC RDW Plt Count Neut % (Auto) Lymph % (Auto) [place] % (Auto) Eos % (Auto) Baso % (Auto) Neut # (Auto) Lymph # (Auto) [place] # (Auto) Eos # (Auto) Baso # (Auto) D-Dimer ABG pH ABG pCO2 ABG pO2 ABG HCO3 ABG Total CO2 ABG O2 Saturation ABG Base Excess FiO2 Sodium Potassium Chloride Carbon Dioxide BUN Creatinine Estimated GFR BUN/Creatinine Ratio Glucose Lactate 10.0 H* Calcium Ferritin Total Bilirubin AST ALT Alkaline Phosphatase Total Creatine Kinase CK-MB (CK-2) CK-MB (CK-2) Rel Index Troponin I C-Reactive Protein NT-Pro-B Natriuret Pep Total Protein Albumin Globulin Albumin/Globulin Ratio Procalcitonin 0.95 H Urine Color Urine Appearance Urine pH Ur Specific [place] Urine Protein Urine Glucose (UA) Urine Ketones Urine Occult Blood Urine Nitrate Urine Bilirubin Urine Urobilinogen Ur Leukocyte Esterase Urine RBC Urine WBC Ur Squamous Epith Cells Amorphous Sediment Urine Bacteria Hyaline Casts Ur Culture Indicated? Nasal Screen MRSA (PCR) Chlamy pneumoniae PCR Adenovirus (PCR) B.parapertussis DNA PCR Coronavirus OC43 (PCR) Coronavirus HKU1 (PCR) Coronavirus 229E (PCR) COVID-19 PCR Coronavirus NL63 (PCR) Human Metapneumovir PCR Influenza A (RT-PCR) Flu a negative Influenza Type A (PCR) Influenza B (RT-PCR) Flu b negative Influenza Type B (PCR) M. pneumoniae (PCR) Parainfluenza 1 (PCR) Parainfluenza 2 (PCR) Parainfluenza 3 (PCR) Parainfluenza 4 (PCR) RSV (PCR) Entero/Rhino (PCR) 08/03/19 08/03/19 08/03/19 15:50 16:02 18:15 WBC RBC Hgb Hct MCV MCH MCHC RDW Plt Count Neut % (Auto) Lymph % (Auto) [place] % (Auto) Eos % (Auto) Baso % (Auto) Neut # (Auto) Lymph # (Auto) [place] # (Auto) Eos # (Auto) Baso # (Auto) D-Dimer ABG pH 7.51 H ABG pCO2 21.8 L* ABG pO2 56 L ABG HCO3 17 L ABG Total CO2 18 L ABG O2 Saturation 92 L ABG Base Excess -6.0 L FiO2 100 Sodium Potassium Chloride Carbon Dioxide BUN Creatinine Estimated GFR BUN/Creatinine Ratio Glucose Lactate 3.0 H Calcium Ferritin Total Bilirubin AST ALT Alkaline Phosphatase Total Creatine Kinase CK-MB (CK-2) CK-MB (CK-2) Rel Index Troponin I C-Reactive Protein NT-Pro-B Natriuret Pep Total Protein Albumin Globulin Albumin/Globulin Ratio Procalcitonin Urine Color Urine Appearance Urine pH Ur Specific [place] Urine Protein Urine Glucose (UA) Urine Ketones Urine Occult Blood Urine Nitrate Urine Bilirubin Urine Urobilinogen Ur Leukocyte Esterase Urine RBC Urine WBC Ur Squamous Epith Cells Amorphous Sediment Urine Bacteria Hyaline Casts Ur Culture Indicated? Nasal Screen MRSA (PCR) Chlamy pneumoniae PCR Adenovirus (PCR) B.parapertussis DNA PCR Coronavirus OC43 (PCR) Coronavirus HKU1 (PCR) Coronavirus 229E (PCR) COVID-19 PCR Negative Coronavirus NL63 (PCR) Human Metapneumovir PCR Influenza A (RT-PCR) Influenza Type A (PCR) Influenza B (RT-PCR) Influenza Type B (PCR) M. pneumoniae (PCR) Parainfluenza 1 (PCR) Parainfluenza 2 (PCR) Parainfluenza 3 (PCR) Parainfluenza 4 (PCR) RSV (PCR) Entero/Rhino (PCR) 08/03/19 08/03/19 08/03/19 18:25 19:10 20:30 WBC RBC Hgb Hct MCV MCH MCHC RDW Plt Count Neut % (Auto) Lymph % (Auto) [place] % (Auto) Eos % (Auto) Baso % (Auto) Neut # (Auto) Lymph # (Auto) [place] # (Auto) Eos # (Auto) Baso # (Auto) D-Dimer ABG pH 7.46 H ABG pCO2 30.6 L ABG pO2 89 ABG HCO3 22 ABG Total CO2 23 ABG O2 Saturation 98 ABG Base Excess -2.0 FiO2 60 Sodium Potassium Chloride Carbon Dioxide BUN Creatinine Estimated GFR BUN/Creatinine Ratio Glucose Lactate Calcium Ferritin Total Bilirubin AST ALT Alkaline Phosphatase Total Creatine Kinase CK-MB (CK-2) CK-MB (CK-2) Rel Index Troponin I C-Reactive Protein NT-Pro-B Natriuret Pep Total Protein Albumin Globulin Albumin/Globulin Ratio Procalcitonin Urine Color Yellow Urine Appearance Clear Urine pH 5.0 Ur Specific [place] 1.010 Urine Protein Negative Urine Glucose (UA) Negative Urine Ketones Negative Urine Occult Blood Trace-lysed Urine Nitrate Negative Urine Bilirubin Negative Urine Urobilinogen 0.2 Ur Leukocyte Esterase Negative Urine RBC 0-1/hpf Urine WBC None seen Ur Squamous Epith Cells 0-1 /hpf Amorphous Sediment 1+ Urine Bacteria None seen Hyaline Casts 5-10/lpf Ur Culture Indicated? Cult not indicated Nasal Screen MRSA (PCR) Negative for mrsa Chlamy pneumoniae PCR Adenovirus (PCR) B.parapertussis DNA PCR Coronavirus OC43 (PCR) Coronavirus HKU1 (PCR) Coronavirus 229E (PCR) COVID-19 PCR Coronavirus NL63 (PCR) Human Metapneumovir PCR Influenza A (RT-PCR) Influenza Type A (PCR) Influenza B (RT-PCR) Influenza Type B (PCR) M. pneumoniae (PCR) Parainfluenza 1 (PCR) Parainfluenza 2 (PCR) Parainfluenza 3 (PCR) Parainfluenza 4 (PCR) RSV (PCR) Entero/Rhino (PCR) 08/03/19 08/03/19 08/03/19 21:50 23:58 23:58 WBC 10.4 RBC 3.83 L Hgb 12.1 L Hct 35.6 L MCV 92.9 MCH 31.6 MCHC 34.0 RDW 17.2 H Plt Count 214 Neut % (Auto) 88.0 H Lymph % (Auto) 6.4 L [place] % (Auto) 4.7 Eos % (Auto) 0.0 L Baso % (Auto) 0.9 Neut # (Auto) 9200 H Lymph # (Auto) 700 L [place] # (Auto) 500 Eos # (Auto) 0 Baso # (Auto) 100 D-Dimer ABG pH ABG pCO2 ABG pO2 ABG HCO3 ABG Total CO2 ABG O2 Saturation ABG Base Excess FiO2 Sodium Potassium Chloride Carbon Dioxide BUN Creatinine Estimated GFR BUN/Creatinine Ratio Glucose Lactate Calcium Ferritin Total Bilirubin AST ALT Alkaline Phosphatase Total Creatine Kinase CK-MB (CK-2) CK-MB (CK-2) Rel Index Troponin I C-Reactive Protein NT-Pro-B Natriuret Pep Total Protein Albumin Globulin Albumin/Globulin Ratio Procalcitonin 6.06 H Urine Color Urine Appearance Urine pH Ur Specific [place] Urine Protein Urine Glucose (UA) Urine Ketones Urine Occult Blood Urine Nitrate Urine Bilirubin Urine Urobilinogen Ur Leukocyte Esterase Urine RBC Urine WBC Ur Squamous Epith Cells Amorphous Sediment Urine Bacteria Hyaline Casts Ur Culture Indicated? Nasal Screen MRSA (PCR) Chlamy pneumoniae PCR Not detected Adenovirus (PCR) Not detected B.parapertussis DNA PCR Not detected Coronavirus OC43 (PCR) Not detected Coronavirus HKU1 (PCR) Not detected Coronavirus 229E (PCR) Not detected COVID-19 PCR Cancelled Coronavirus NL63 (PCR) Not detected Human Metapneumovir PCR Not detected Influenza A (RT-PCR) Influenza Type A (PCR) Not detected Influenza B (RT-PCR) Influenza Type B (PCR) Not detected M. pneumoniae (PCR) Not detected Parainfluenza 1 (PCR) Not detected Parainfluenza 2 (PCR) Not detected Parainfluenza 3 (PCR) Not detected Parainfluenza 4 (PCR) Not detected RSV (PCR) Not detected Entero/Rhino (PCR) Not detected 08/03/19 08/04/19 08/04/19 23:58 01:21 04:34 WBC 9.3 RBC 3.78 L Hgb 11.9 L Hct 35.2 L MCV 93.0 MCH 31.6 MCHC 33.9 RDW 16.9 H Plt Count 220 Neut % (Auto) 85.4 H Lymph % (Auto) 10.8 L [place] % (Auto) 3.4 Eos % (Auto) 0.1 L Baso % (Auto) 0.3 Neut # (Auto) 8000 H Lymph # (Auto) 1000 L [place] # (Auto) 300 Eos # (Auto) 0 Baso # (Auto) 0 D-Dimer ABG pH ABG pCO2 ABG pO2 ABG HCO3 ABG Total CO2 ABG O2 Saturation ABG Base Excess FiO2 Sodium 134 L Potassium 4.5 Chloride 105 Carbon Dioxide 23 BUN 21 H Creatinine 0.74 Estimated GFR > 60.0 BUN/Creatinine Ratio 28.4 H Glucose 148 H Lactate 1.4 Calcium 8.9 Ferritin Total Bilirubin 0.3 AST 32 ALT 17 Alkaline Phosphatase 67 Total Creatine Kinase CK-MB (CK-2) CK-MB (CK-2) Rel Index Troponin I C-Reactive Protein NT-Pro-B Natriuret Pep Total Protein 6.0 L Albumin 2.9 L Globulin 3.1 Albumin/Globulin Ratio 0.9 L Procalcitonin Urine Color Urine Appearance Urine pH Ur Specific [place] Urine Protein Urine Glucose (UA) Urine Ketones Urine Occult Blood Urine Nitrate Urine Bilirubin Urine Urobilinogen Ur Leukocyte Esterase Urine RBC Urine WBC Ur Squamous Epith Cells Amorphous Sediment Urine Bacteria Hyaline Casts Ur Culture Indicated? Nasal Screen MRSA (PCR) Chlamy pneumoniae PCR Adenovirus (PCR) B.parapertussis DNA PCR Coronavirus OC43 (PCR) Coronavirus HKU1 (PCR) Coronavirus 229E (PCR) COVID-19 PCR Coronavirus NL63 (PCR) Human Metapneumovir PCR Influenza A (RT-PCR) Influenza Type A (PCR) Influenza B (RT-PCR) Influenza Type B (PCR) M. pneumoniae (PCR) Parainfluenza 1 (PCR) Parainfluenza 2 (PCR) Parainfluenza 3 (PCR) Parainfluenza 4 (PCR) RSV (PCR) Entero/Rhino (PCR) 08/04/19 08/04/19 04:34 09:10 WBC RBC Hgb Hct MCV MCH MCHC RDW Plt Count Neut % (Auto) Lymph % (Auto) [place] % (Auto) Eos % (Auto) Baso % (Auto) Neut # (Auto) Lymph # (Auto) [place] # (Auto) Eos # (Auto) Baso # (Auto) D-Dimer ABG pH 7.35 ABG pCO2 37.0 ABG pO2 60 L ABG HCO3 21 L ABG Total CO2 22 ABG O2 Saturation 90 L ABG Base Excess -5.0 L FiO2 100 Sodium 135 L Potassium 4.3 Chloride 106 Carbon Dioxide 24 BUN 20 Creatinine 0.70 Estimated GFR > 60.0 BUN/Creatinine Ratio 28.6 H Glucose 125 H Lactate Calcium 8.6 Ferritin Total Bilirubin 0.3 AST 30 ALT 15 Alkaline Phosphatase 61 Total Creatine Kinase CK-MB (CK-2) CK-MB (CK-2) Rel Index Troponin I C-Reactive Protein NT-Pro-B Natriuret Pep Total Protein 5.8 L Albumin 2.8 L Globulin 3.0 Albumin/Globulin Ratio 0.9 L Procalcitonin Urine Color Urine Appearance Urine pH Ur Specific [place] Urine Protein Urine Glucose (UA) Urine Ketones Urine Occult Blood Urine Nitrate Urine Bilirubin Urine Urobilinogen Ur Leukocyte Esterase Urine RBC Urine WBC Ur Squamous Epith Cells Amorphous Sediment Urine Bacteria Hyaline Casts Ur Culture Indicated? Nasal Screen MRSA (PCR) Chlamy pneumoniae PCR Adenovirus (PCR) B.parapertussis DNA PCR Coronavirus OC43 (PCR) Coronavirus HKU1 (PCR) Coronavirus 229E (PCR) COVID-19 PCR Coronavirus NL63 (PCR) Human Metapneumovir PCR Influenza A (RT-PCR) Influenza Type A (PCR) Influenza B (RT-PCR) Influenza Type B (PCR) M. pneumoniae (PCR) Parainfluenza 1 (PCR) Parainfluenza 2 (PCR) Parainfluenza 3 (PCR) Parainfluenza 4 (PCR) RSV (PCR) Entero/Rhino (PCR) Assessment & Plan Assessment & Plan narrative: Camron Burton is a 74-year-old male with history of rheumatoid arthritis on prednisone, hyperlipidemia, and hypothyroidism who presented with shortness of breath. He was admitted with acute respiratory failure and required intubation this morning after failing noninvasive measures including heated high-flow and noninvasive positive-pressure ventilation. 1. Acute hypoxic respiratory failure, acute, present on admission -patient was hypoxic with initial sats were in the 70s and he had a respiratory alkalosis on admission, which was corrected with BiPAP in the emergency department. He further decompensated up stairs and looked to be in respiratory distress on BiPAP. He initially appeared to be improving upon arrival to the floor, however worsening appearance on his chest x-ray may indicate some volume overload. There is indications of volume overload on his echocardiogram as well. -continue to follow ABG -continue to wean from the ventilator as tolerated -will start diuresis with Lasix 40 mg IV b.i.d. -continue Zosyn and vancomycin to cover for oral anaerobes as well as MRSA given the severity of his illness pending cultures. -Albuterol MDI as needed -repeat COVID-19 testing pending, negative x1 -CT angio of the chest ruled out PE however did indicate he has bilateral ground-glass opacities, cardiology note as an outpatient makes note of a possible interstitial lung disease so this may be chronic. -Doppler ultrasound of the lower extremities to rule out DVT was negative. -If no improvement after diuresis and above therapies will transfer for ARDS management to a higher level of care, family prefers . -TTE with normal EF, no valvular dysfunction. States there is a pacing lead into the R ventricle but his is not in known history and chest imaging does not show a pacemaker present. Will check with slunk skin curer regarding this interpretation. 2. Sepsis, secondary to probable acute bacterial pneumonia with a procalcitonin of 0.95, present on admission -patient's initial lactate was 10 and improved to 3 after fluid resuscitation in the ED -he was started on IV Zosyn 4.5 q.6 and this will be continued -IV Vanco dosed per pharmacy -initial lactate of 10 now down to less than 2 3. Hypotension, acute, present on admission -patient's blood pressure had improved with fluid resuscitation initially. Current hypotension is likely related to sedating medications rather than a sep tic response. He appears volume overloaded on his echocardiogram. -will need diuresis at this time, PICC line has been inserted. 4. Community-acquired pneumonia, acute, present on admission -Bilateral ground-glass opacities seen on CT of the lungs, unknown if this is an acute versus chronic finding -initial ED screen of COVID-19 was negative, will repeat COVID-19 screen -Airborne and droplet precautions -obtain sputum culture -continue antibiotics as noted above 5. Rheumatoid arthritis, chronic, present on admission -patient will continue home dose of prednisone 7.5 mg p.o. daily 6. Hypothyroidism, chronic, present on admission -continue home dose of levothyroxine 50 mcg p.o. daily 7. History of a right bundle branch block, currently being worked up by Cardiology -patient underwent a stress test but was unable to complete -he will be following up with Dr. Chen, his slunk skin curer I spent 45 minutes providing critical care management this patient. This excludes time spent in performing separately billed procedures. Code: Full Dispo: Remains ICU DVT: Lovenox daily COVID-19 COVID-19 status: Result pending Quality VTE Deep Vein Thrombosis/Pulmonary Embolism Present on Admission: No
[2019-08-04] MEDS: propofoL 1,000 MG/100 ML VIAL 16.317 MG IV ×2 (12:13→22:43)
[2019-08-04 12:51] LABS: Add Manual Diff / Slide Review NO; Basophils Absolute Auto 0 /uL (0-100); Basophils Percent Auto 0.2 % (0-2); Eosinophils Absolute Auto 0 /uL (0-450); Eosinophils Percent Auto 0.1 % (2-4); Hematocrit 35.5 % (41-53); Hemoglobin 11.7 g/dL (13.5-17.5); Lymphocytes Absolute Auto 800 /uL (1100-4500); Lymphocytes Percent Auto 6.7 % (25-40); Mean Corpuscular Hemoglobin 30.8 PG (26-34); Mean Corpuscular Volume 93.2 fL (80-100); Monocytes Absolute Auto 400 /uL (0-900); Monocytes Percent Auto 3.2 % (3-14); Neutrophils Absolute Auto 10200 /uL (1500-7000); Neutrophils Percent Auto 89.8 % (50-75); Platelet Count 226 X10^3/uL (150-400); Red Blood Cell Count 3.81 X10^6/uL (4.5-5.9); Red Cell Distribution Width 17.2 % (11.6-14.8); White Blood Cell Count 11.4 X10^3/uL (4.5-11.0)
[2019-08-04 13:16] LABS: Alanine Aminotransferase 16 IU/L (<50); Albumin 2.8 g/dL (3.5-5.0); Alkaline Phosphatase 62 U/L (38-126); Aspartate Aminotransferase 45 IU/L (17-59); BUN Creatinine Ratio 27.8 (6-22); Bilirubin Total 0.4 mg/dL (0.2-1.3); Blood Urea Nitrogen 22 mg/dL (9-20); Calcium 8.6 mg/dL (8.4-10.2); Carbon Dioxide 23 mmol/L (22-32); Chloride 109 mmol/L (98-107); Estimated Glomerular Filt Rate > 60.0 mL/min (>60); Globulin 2.9 g/dL (1.7-4.1); Glucose 95 mg/dL (80-110); HEMOLYSIS < 15 (0-50); Potassium 4.4 mmol/L (3.4-5.1); Sodium 137 mmol/L (137-145); Total Protein 5.7 g/dL (6.3-8.2)
[2019-08-04 13:31] LABS: HCO3 ABG 22 mmol/L (22-26); Oxygen Saturation ABG 93 % (95-100); PCO2 ABG 36.2 mmHg (35-45); PO2 ABG 67 mmHg (80-100); TCO2 ABG 23 mmol/L (21-31); pH ABG 7.39 (7.35-7.45)
--- NOTE | 2019-08-04 13:48 | CM.DANOTE ---
Discharge Planning/Care Management DCP: assessment: case received, EMR reviewed. Discussed in Team Rounds with Dr. Pride. Pt is a 74 year old male who admitted to care of hospitalist team last evening. PCP. Dr. Seng Ramirez Payer: Medicare and Management. Admission status: INPT: confirmed by [facility] RN Akira. Pt lives with his Alyce in [place]. Per physician documentation pt has been ill at home for several days, has been in self quarantine and Alyce has been going out for essential errands. Rapid Covid-19: negative. Covid-19 test #2 has been sent to [facility]. 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 Dr. Pride noted in Rounds that if pt's condition did not begin to improve a transfer to higher level of care was probable. He said he had extensive discussion with pt's . P: DCP team will follow as POC unfolds. If pt does not transfer will reach out to Alyce for further discussion of d/c issues and options. CM Discharge Assessment Start: 08/04/19 13:42 Freq: Status: Active Protocol: Document 08/04/19 13:47 ITV (Rec: 08/04/19 13:48 ITV [id number]) Discharge Planning Assessment Advance Directives? Yes History Provided By Medical Record Has Patient been admitted in last 30 No days? Prior Living Arrangements House Household Members spouse Review Status In Process
--- NOTE | 2019-08-04 13:53 | DI.RAD.S_ITS ---
PROCEDURE: XR CHEST 1V INDICATIONS: OGT placement confirmation TECHNIQUE: One view of the chest was acquired. COMPARISON: [facility], , XR CHEST FOR PICC 1V, 08/04/2019, 10:21. FINDINGS: Surgical changes and devices: The ET tube and OG tube in satisfactory position. PICC line in satisfactory position. Lungs and pleura: Improving pulmonary edema. Interstitial and alveolar edema still present. No pleural effusions or pneumothorax. Mediastinum: Mediastinal contours appear normal. Heart size is normal. Bones and chest wall: No suspicious bony lesions. Overlying soft tissues appear unremarkable. IMPRESSION: Improving pulmonary edema. Lines and tubes in satisfactory position. Dictated by: Julian Singh M.D. on 08/04/2019 at 16:01 Approved by: Julian Singh M.D. on 08/04/2019 at 16:02
[2019-08-04] MEDS: FUROSEMIDE 40 MG/4 ML VIAL IV (15:31)
--- NOTE | 2019-08-04 16:14 | DIET.PN ---
Dietary Progress Note Assessment: 74y M admitted for acute respiratory failure referred to nutrition for NPO on vent status. Hospitalist suspects fluid overload contributing to respiratory failure, pt is Covid-19 r/o. Concentrated TF formula to be used to support fluid balance. HT: 182.8cm WT: 77.7cm BMI: 23.2 Labs: MAP 65, lactate 1.4 MNA: 14 normal nutrition Valentino: 19 Nutrition Diagnosis: inadequate protein energy intake r/t NPO on vent status Interventions: Recc continuous OG feeding of Glucerna 1.5 using ASPEN Covid ICU protocol starting at 15mL/hr for first 24h c 250mL water flushes q4h. After first 24h or if covid negative, titrate up by 15mL/h q8h as tolerated until reaching goal rate of 45mL/h. HOB elevated during feedings. Goal feeding provides 1620kcal (21kcal/kg), 89g PRO (1.1g/kg), 820mL feed water and 1500mL free water flushes (total 30mL/kg) Diet Order: NPO, tube feed EER: 2300kcal (30kcal/kg), 78g PRO (1g/kg elder), 2.3 L fluids Monitoring/Evaluations: formula tolerance, transition to POs once extubated
[2019-08-04 16:16] LABS: BUN Creatinine Ratio 27.8 (6-22); Blood Urea Nitrogen 22 mg/dL (9-20); Calcium 8.4 mg/dL (8.4-10.2); Carbon Dioxide 21 mmol/L (22-32); Chloride 105 mmol/L (98-107); Estimated Glomerular Filt Rate > 60.0 mL/min (>60); Glucose 130 mg/dL (80-110); HEMOLYSIS 36 (0-50); Magnesium 1.6 mg/dL (1.6-2.3); Potassium 4.4 mmol/L (3.4-5.1); Sodium 134 mmol/L (137-145)
[2019-08-04 16:27] LABS: Troponin I 0.069 ng/mL (0.01-0.034)
[2019-08-04] MEDS: MAGNESIUM SULFATE 2 GM/50 ML PIGGYBACK IV (17:12)
[2019-08-04] MEDS: propofoL 1,000 MG/100 ML VIAL 13.986 MG IV (17:15)
[2019-08-04] MEDS: ACETAMINOPHEN 325 MG TABLET 650 MG PO (18:00)
[2019-08-04] MEDS: ALBUTEROL HFA 60 PUFF/8 GM INH 8 PUFF INH ×2 (18:37→22:25)
--- NOTE | 2019-08-04 18:37 | PC.NURSE ---
Addendum entered by Lolis Alamo R.N. 08/04/19 22:57: Addendum entered by Lolis Alamo R.N. 08/04/19 22:55: 2215 - Map decreased below 60. 72/53 (58). Levophed titrated up to 7 mcq/min. Audible airleak around ET tube cuff. Oral care and suction. RT called to assist. Pt tolerated well. ABX infusing. Restraints checked and left in place. Addendum entered by Lolis Alamo R.N. 08/04/19 21:37: 2115 - Pt restless, RT called from more sedation due to agitation. Pulling at restraints. Kick legs. Attempt to reassure and reorient pt. Titrate Propofol to 35 mcg/kg/min. Repositioned. temp 99.8, Ice pack to axilla per Hospitalist request. Sats decreased during agitation to 87%. RT attempted 100% breath, however sats trended back down. Increased Fio2 to 60% during recovery. Sats increase to 92%. Monitor. Addendum entered by Lolis Alamo R.N. 08/04/19 20:23: 1900 - BP trending down. Map 58. ABX infusion initiated. Mag rider nearly complete. Attempt to titrate propofol down to 25mcg/kg/min, however pt began kicking legs. Returned to 30 mcg/kg/min. 1929 - MAP 56. 1944 - Levophed gtt initiated at 8 mcg/min. 2004 - able to titrate down to 6 mcg/min. Repositioned to supine, HOB elevated to 30, Restraints in place. Call light in reach. Original Note: 1800 - Pt temp elevated 102.8. MD aware. APAP order obtained. Pt repositioned. Rass score remains -3 with propofol at 30mcg/kg/min and Fentanyl titrated down to 0.8 mcg/kg/hr. Restraints released from care and replaced. Good response to IV lasix, 800 cc out since 1500. BP 80/53 (62).
[2019-08-04] MEDS: NOREPINEPHRINE 4 MG in DEXTROSE 5% IN WATER 250 ML 30.48 ML IV (19:35)
[2019-08-04 20:01] LABS: COVID19 Sendout Not Detected (Not Detect)
--- NOTE | 2019-08-04 20:42 | PM.EVENT ---
Event Note Event Note: 2030: notified levaphed was started due to a MAP 56-57 Still has a temp. Have ordered blood cx X 2, stat lactate. Procal in the am. Order COVID-19 Antibodies IgM and IgG
[2019-08-04] MEDS: predniSONE 2.5 MG TABLET 7.5 MG PO (20:52)
[2019-08-04] MEDS: SIMVASTATIN 10 MG TABLET PO (20:52)
[2019-08-04] MEDS: fentaNYL 1,000 MCG in DEXTROSE 5% IN WATER 250 ML 16.783 ML IV (23:07)
[2019-08-05] VITALS (38 sets, daily range): BP systolic 78–120; BP diastolic 49–71; PULSE 45–99; RESP 15–22; TEMP 36.4–38.7; O2SAT 87–98
[2019-08-05] MEDS: FUROSEMIDE 40 MG/4 ML VIAL IV ×2 (00:24→15:40)
[2019-08-05] MEDS: PIPERACILLIN-TAZO 4.5 GM/100 ML FROZ.PIGGY IV ×4 (00:24→18:43)
[2019-08-05] MEDS: SODIUM CHLORIDE 0.9% FLUSH 10 ML IV ×3 (00:24→20:15)
[2019-08-05] MEDS: ALBUTEROL HFA 60 PUFF/8 GM INH 8 PUFF INH ×5 (02:07→23:29)
[2019-08-05] MEDS: NOREPINEPHRINE 4 MG in DEXTROSE 5% IN WATER 250 ML 26.67 ML IV (04:07)
[2019-08-05 05:51] LABS: Add Manual Diff / Slide Review NO; Basophils Absolute Auto 100 /uL (0-100); Basophils Percent Auto 0.6 % (0-2); Eosinophils Absolute Auto 0 /uL (0-450); Eosinophils Percent Auto 0.1 % (2-4); Hematocrit 37.2 % (41-53); Hemoglobin 12.4 g/dL (13.5-17.5); Lymphocytes Absolute Auto 1100 /uL (1100-4500); Lymphocytes Percent Auto 8.1 % (25-40); Mean Corpuscular HGB Conc 33.3 % (30-36); Mean Corpuscular Hemoglobin 30.9 PG (26-34); Mean Corpuscular Volume 92.7 fL (80-100); Monocytes Absolute Auto 400 /uL (0-900); Monocytes Percent Auto 2.7 % (3-14); Neutrophils Absolute Auto 11800 /uL (1500-7000); Neutrophils Percent Auto 88.5 % (50-75); Platelet Count 257 X10^3/uL (150-400); Red Blood Cell Count 4.02 X10^6/uL (4.5-5.9); Red Cell Distribution Width 17.6 % (11.6-14.8); White Blood Cell Count 13.4 X10^3/uL (4.5-11.0)
[2019-08-05 05:55] LABS: Alanine Aminotransferase 16 IU/L (<50); Albumin 3.1 g/dL (3.5-5.0); Alkaline Phosphatase 71 U/L (38-126); Aspartate Aminotransferase 44 IU/L (17-59); BUN Creatinine Ratio 24.7 (6-22); Bilirubin Total 0.5 mg/dL (0.2-1.3); Bilirubin Unconjugated 0.2 mg/dL (0.0-1.1); Blood Urea Nitrogen 22 mg/dL (9-20); Calcium 8.4 mg/dL (8.4-10.2); Carbon Dioxide 27 mmol/L (22-32); Chloride 102 mmol/L (98-107); Estimated Glomerular Filt Rate > 60.0 mL/min (>60); Globulin 3.1 g/dL (1.7-4.1); Glucose 152 mg/dL (80-110); HEMOLYSIS < 15 (0-50); Potassium 3.3 mmol/L (3.4-5.1); Sodium 137 mmol/L (137-145); Total Protein 6.2 g/dL (6.3-8.2)
[2019-08-05] MEDS: LEVOTHYROXINE 50 MCG TABLET PO (05:56)
[2019-08-05] MEDS: propofoL 1,000 MG/100 ML VIAL 11.655 MG IV (05:57)
[2019-08-05 06:06] LABS: Troponin I 0.024 ng/mL (0.01-0.034)
[2019-08-05 06:10] LABS: Procalcitonin 6.71 ng/mL (<0.5)
[2019-08-05 06:13] LABS: Fractionated Inspired Oxygen 40; HCO3 ABG 27 mmol/L (22-26); Oxygen Saturation ABG 94 % (95-100); PCO2 ABG 43.4 mmHg (35-45); PO2 ABG 71 mmHg (80-100); TCO2 ABG 28 mmol/L (21-31)
--- NOTE | 2019-08-05 08:36 | P.PN_ITS ---
Subjective Subjective Date Patient Seen: 08/05/19 Time Patient Seen: 08:36 Interval history: Camron Burton is a 74-year-old male with history of rheumatoid arthritis on prednisone, hyperlipidemia, h/o PPM, and hypothyroidism who presented with shortness of breath. He was admitted with acute respiratory failure and was intubated after failing noninvasive positive-pressure ventilation trial. This morning he has been titrated down to minimal vent settings, with a PEEP of 5 now and an FiO2 40%. His PO2 remains low. He is being diuresed. He was also started on Levophed overnight as his blood pressures remained low. He is currently on 7 mics of Levophed. His markers of infection very slightly worsened with a WBC of 13.4, and a rising procalcitonin. However, his clinical picture appears markedly improved. Will give more time for his antibiotics to take affect, as he is on Zosyn and vancomycin, and plan to leave him intubated for today and if infectious markers are improving start sedation trials tomorrow. Exam Vital Signs (past 8 hours): - 08/05/19 01:00 08/05/19 02:00 08/05/19 03:00 Temperature 97.8 F Pulse Rate 70 92 H 87 Respiratory Rate 17 17 17 Blood Pressure 112/61 91/61 93/66 Pulse Oximetry 97 97 88 L 08/05/19 04:00 08/05/19 04:30 08/05/19 05:00 Temperature 97.9 F Pulse Rate 87 70 79 Respiratory Rate 17 17 17 Blood Pressure 101/64 104/67 98/67 Pulse Oximetry 98 98 97 08/05/19 06:00 Temperature Pulse Rate 74 Respiratory Rate 17 Blood Pressure 95/61 Pulse Oximetry 94 Fraction of Inspired Oxygen 40 Oxygen Delivery Method Mechanical Ventilation Oxygen Flow Rate 30 Narrative Exam Narrative: GENERAL APPEARANCE: Intubated, sedated. Appears comfortable on mechanical ventilation. SKIN: Inspection of the skin reveals no rashes, ulcerations or petechiae. HEENT: Normocephalic atraumatic, extraocular muscles are intact, oropharynx is clear and mucous membranes are moist, neck is supple without adenopathy NECK: Supple and symmetric. There was no thyroid enlargement, and no tenderness, or masses were felt. CHEST: Normal AP diameter and normal contour without any kyphoscoliosis. LUNGS: Diffuse fine rhonchi throughout lung boo anteriorly, improved from yesterday's exam. CARDIOVASCULAR: There was a regular rate and rhythm without any murmurs, gallops, rubs. Peripheral pulses were 2+ and symmetric. ABDOMEN: Soft and nondistended, no ascites was noted. MUSCULOSKELETAL: No effusions, muscle tone normal. EXTREMITIES: No cyanosis, clubbing or edema. NEUROLOGIC: Sedated, reacts to pain. Objective Labs Result Diagrams: 08/05/19 05:00 08/05/19 05:00 Labs: Laboratory Results - last 24 hr 08/03/19 08/04/19 08/04/19 21:50 09:10 13:05 WBC RBC Hgb Hct MCV MCH MCHC RDW Plt Count Neut % (Auto) Lymph % (Auto) [place] % (Auto) Eos % (Auto) Baso % (Auto) Neut # (Auto) Lymph # (Auto) [place] # (Auto) Eos # (Auto) Baso # (Auto) ABG pH 7.35 7.39 ABG pCO2 37.0 36.2 ABG pO2 60 L 67 L ABG HCO3 21 L 22 ABG Total CO2 22 23 ABG O2 Saturation 90 L 93 L ABG Base Excess -5.0 L -3.0 L FiO2 100 0.60 Sodium Potassium Chloride Carbon Dioxide BUN Creatinine Estimated GFR BUN/Creatinine Ratio Glucose Lactate Calcium Magnesium Total Bilirubin Conjugated Bilirubin Unconjugated Bilirubin AST ALT Alkaline Phosphatase Troponin I Total Protein Albumin Globulin Albumin/Globulin Ratio Procalcitonin COVID-19 PCR Not detected 08/04/19 08/04/19 08/04/19 13:45 13:45 16:00 WBC 11.4 H RBC 3.81 L Hgb 11.7 L Hct 35.5 L MCV 93.2 MCH 30.8 MCHC 33.0 RDW 17.2 H Plt Count 226 Neut % (Auto) 89.8 H Lymph % (Auto) 6.7 L [place] % (Auto) 3.2 Eos % (Auto) 0.1 L Baso % (Auto) 0.2 Neut # (Auto) 39498 H Lymph # (Auto) 800 L [place] # (Auto) 400 Eos # (Auto) 0 Baso # (Auto) 0 ABG pH ABG pCO2 ABG pO2 ABG HCO3 ABG Total CO2 ABG O2 Saturation ABG Base Excess FiO2 Sodium 137 134 L Potassium 4.4 4.4 Chloride 109 H 105 Carbon Dioxide 23 21 L BUN 22 H 22 H Creatinine 0.79 0.79 Estimated GFR > 60.0 > 60.0 BUN/Creatinine Ratio 27.8 H 27.8 H Glucose 95 130 H Lactate Calcium 8.6 8.4 Magnesium 1.6 Total Bilirubin 0.4 Conjugated Bilirubin Unconjugated Bilirubin AST 45 ALT 16 Alkaline Phosphatase 62 Troponin I 0.069 H Total Protein 5.7 L Albumin 2.8 L Globulin 2.9 Albumin/Globulin Ratio 1.0 Procalcitonin COVID-19 [facility] 08/04/19 08/05/19 08/05/19 20:49 05:00 05:00 WBC RBC Hgb Hct MCV MCH MCHC RDW Plt Count Neut % (Auto) Lymph % (Auto) [place] % (Auto) Eos % (Auto) Baso % (Auto) Neut # (Auto) Lymph # (Auto) [place] # (Auto) Eos # (Auto) Baso # (Auto) ABG pH ABG pCO2 ABG pO2 ABG HCO3 ABG Total CO2 ABG O2 Saturation ABG Base Excess FiO2 Sodium 137 Potassium 3.3 L Chloride 102 Carbon Dioxide 27 BUN 22 H Creatinine 0.89 Estimated GFR > 60.0 BUN/Creatinine Ratio 24.7 H Glucose 152 H Lactate 2.0 Calcium 8.4 Magnesium 2.0 Total Bilirubin 0.5 Conjugated Bilirubin 0.0 Unconjugated Bilirubin 0.2 AST 44 ALT 16 Alkaline Phosphatase 71 Troponin I 0.024 Total Protein 6.2 L Albumin 3.1 L Globulin 3.1 Albumin/Globulin Ratio 1.0 Procalcitonin COVID-19 [facility] 08/05/19 08/05/19 08/05/19 05:00 05:00 05:54 WBC 13.4 H RBC 4.02 L Hgb 12.4 L Hct 37.2 L MCV 92.7 MCH 30.9 MCHC 33.3 RDW 17.6 H Plt Count 257 Neut % (Auto) 88.5 H Lymph % (Auto) 8.1 L [place] % (Auto) 2.7 L Eos % (Auto) 0.1 L Baso % (Auto) 0.6 Neut # (Auto) 25723 H Lymph # (Auto) 1100 [place] # (Auto) 400 Eos # (Auto) 0 Baso # (Auto) 100 ABG pH 7.40 ABG pCO2 43.4 ABG pO2 71 L ABG HCO3 27 H ABG Total CO2 28 ABG O2 Saturation 94 L ABG Base Excess 2.0 FiO2 40 Sodium Potassium Chloride Carbon Dioxide BUN Creatinine Estimated GFR BUN/Creatinine Ratio Glucose Lactate Calcium Magnesium Total Bilirubin Conjugated Bilirubin Unconjugated Bilirubin AST ALT Alkaline Phosphatase Troponin I Total Protein Albumin Globulin Albumin/Globulin Ratio Procalcitonin 6.71 H COVID-19 PCR Assessment & Plan Assessment & Plan narrative: Cmaron Burton is a 74-year-old male with history of rheumatoid arthritis on prednisone, hyperlipidemia, and hypothyroidism who presented with shortness of breath. He was admitted with acute respiratory failure and required intubation on HD#1 after failing noninvasive measures including heated high-flow and noninvasive positive-pressure ventilation. His respiratory status is improved today after diuresis and antibiotics. 1. Acute hypoxic respiratory failure, acute, present on admission -patient was hypoxic with initial sats were in the 70s and he had a respiratory alkalosis on admission, which was corrected with BiPAP in the emergency department. He further decompensated up stairs and looked to be in respiratory distress on BiPAP. He initially appeared to be improving upon arrival to the floor, however worsening appearance on his chest x-ray may indicate some volume overload. There is indications of volume overload on his echocardiogram as well. He was diuresed and is now on minimal vent settings. -continue to follow ABG -continue to wean from the ventilator as tolerated -will change diuresis to 40 mg IV daily -continue Zosyn and vancomycin to cover for oral anaerobes as well as MRSA given the severity of his illness pending cultures. Continue to monitor renal function closely while on this combination. -Albuterol MDI as needed -overnight COVID-19 antibody testing was sent, his COVID-19 swab was negative x2. -CT angio of the chest ruled out PE however did indicate he has bilateral ground-glass opacities, cardiology note as an outpatient makes note of a possible interstitial lung disease so this may be chronic. -Doppler ultrasound of the lower extremities to rule out DVT was negative. -TTE with normal EF, no valvular dysfunction. States there is a pacing lead into the R ventricle but his is not in known history and chest imaging does not show a pacemaker present. Will check with band saw marker regarding this interpretation. 2. Sepsis, secondary to probable acute bacterial pneumonia with a procalcitonin of 0.95 on admission that his increased to 6. -patient's initial lactate was 10 and improved to 3 after fluid resuscitation in the ED -he was started on IV Zosyn 4.5 q.6 and this will be continued -IV Vanco dosed per pharmacy -initial lactate of 10 now improved to 2. -source is likely pulmonary as noted above, however there is not much improvement in his white blood cell count or his procalcitonin on Zosyn and vancomycin. Given clinical improvement will defer antibiotic change at this time or further evaluation until tomorrow to see if there is a lag in his blood work unless his status changes today. 3. Hypotension, acute, present on admission -patient's blood pressure had improved with fluid resuscitation initially. Current hypotension is likely related to sedating medications rather than a septic response. He appears volume overloaded on his echocardiogram. -PICC line placed -wean from levophed with MAP goal of >60. 4. Community-acquired pneumonia, acute, present on admission -Bilateral ground-glass opacities seen on CT of the lungs, unknown if this is an acute versus chronic finding -initial ED screen of COVID-19 was negative, repeat testing negative as well -obtain sputum culture -continue antibiotics as noted above -follow up blood cultures. 5. Rheumatoid arthritis, chronic, present on admission -patient will continue home dose of prednisone 7.5 mg p.o. daily 6. Hypothyroidism, chronic, present on admission -continue home dose of levothyroxine 50 mcg p.o. daily 7. History of a right bundle branch block, currently being worked up by Cardio logy -essentially negative stress test -he will be following up with Dr. Chen, his band saw marker 8. Acute congestive heart failure with preserved ejection fraction -as noted above patient has a normal ejection fraction on his echocardiogram but his respiratory status has improved markedly with IV diuresis. -continue Lasix 40 mg IV daily 9. Hypokalemia -repleted with IV potassium today. -will start tube feedings as noted above -Mg is 2.0 10. Elevated troponin, resolved -elevated troponin likely in the setting of increased demand due to sepsis -troponin peaked at 0.069 and subsequently down trended. There were no concerning findings on his EKG. I spent 30 minutes providing critical care management this patient. This excludes time spent in performing separately billed procedures. Quality VTE Deep Vein Thrombosis/Pulmonary Embolism Present on Admission: No
[2019-08-05] MEDS: VANCOMYCIN TROUGH 1 REQUEST MISC (09:00)
[2019-08-05] MEDS: POTASSIUM CHLORIDE 40 MEQ in SODIUM CHLORIDE 0.9% 500 ML 130 ML IV (09:00)
[2019-08-05] MEDS: ENOXAPARIN 40 MG/0.4 ML SYRINGE SUBCUT (09:01)
[2019-08-05] MEDS: VANCOMYCIN 1,250 MG in SODIUM CHLORIDE 0.9% 250 ML IV ×2 (09:04→20:31)
[2019-08-05 09:13] LABS: Vancomycin Trough 10.3 ug/mL (10-20)
[2019-08-05] MEDS: propofoL 1,000 MG/100 ML VIAL 13.986 MG IV ×2 (12:04→20:13)
[2019-08-05] MEDS: SODIUM CHLORIDE 0.9% 250 ML 21 ML IV (13:30)
--- NOTE | 2019-08-05 14:19 | CM.DPC ---
DCP Cont: Discussed patient during team rounds. Confirmed diagnosis of pneumonia, negative for rapid COVID results. Plan is to wean him off the ventilator tomorrow, and will see how he does. P: DCP to continue to follow, and will be available for any resources needed. Will see how he does tomorrow as far as extubation goes. Monica Franks RN/[employer]
--- NOTE | 2019-08-05 15:04 | DI.RAD.S_ITS ---
PROCEDURE: XR CHEST 1V INDICATIONS: decreasing SpO2 TECHNIQUE: One view of the chest was acquired. COMPARISON: [facility], , XR CHEST 1V, 08/04/2019, 14:55. FINDINGS: Surgical changes and devices: Endotracheal tube is 5.3 cm above the myla. NG tube is unchanged. Lungs and pleura: Diffuse pulmonary opacities are present within the mid and lower lungs, as before. No new focal air space opacities. No pleural effusion or pneumothorax. Mediastinum: Mediastinal contours appear normal. Heart size is normal. Bones and chest wall: No suspicious bony lesions. Overlying soft tissues appear unremarkable. IMPRESSION: Unchanged diffuse air space opacities in the mid and lower lungs as before. Dictated by: Karley Mata M.D. on 08/05/2019 at 15:53 Approved by: Karley Mata M.D. on 08/05/2019 at 15:54
--- NOTE | 2019-08-05 15:12 | PC.NURSE ---
pt tolerating vent most of shift - did start producing increased secretions and noted increase in rhonchi bilat after bathing and increased turning schedule- fentanyl continues at 1.25mcg/propofol at 30mcg/kg/hr/ levophed gtt at 2.0 ( down form 7)- no edema noted curtis patent with clear yellow urine- shanda complexion
[2019-08-05] MEDS: fentaNYL 1,000 MCG in DEXTROSE 5% IN WATER 250 ML 30.42 ML IV (16:26)
[2019-08-05] MEDS: SIMVASTATIN 10 MG TABLET PO (20:12)
[2019-08-05] MEDS: ACETAMINOPHEN 325 MG TABLET 650 MG PO (20:12)
[2019-08-05] MEDS: predniSONE 2.5 MG TABLET 7.5 MG PO (20:12)
--- NOTE | 2019-08-05 22:39 | PC.NURSE ---
Addendum entered by Bobbi Lerma R.N. 08/05/19 23:05: Last check on patient showed some edema on right forearm, but no signs of infiltration. Removed PIV and wrapped with kerlix. Patient is very diaphoretic, patient was wiped down and gown changed. Cool wash cloth applied to forehead. Temp is 100.3. Original Note: Patient tolerating vent well. Some grimacing, movements of hands, and raising of eyebrows when turning. Fentanyl increased to 1.65 mcg/kg/hr. BP dropped at 20:00 to MAP of 59, levophed was increased to 3 mcg/min and BP came up to MAP of 67. Propofol remains at 30 mcg/kg/min. Tolerated turning well Q2H with no desatting. Oral care done. 1000ml curtis output after IV lasix. Lungs sound very coarse with exp. rhonchi/wheezing. Restraints in place, SCDs on, heel protectors on. Temp elevated to 101.6, came down to 100 after Tylenol.
[2019-08-06] VITALS (40 sets, daily range): BP systolic 74–123; BP diastolic 48–71; PULSE 59–84; RESP 12–19; TEMP 35.9–37.7; O2SAT 91–99
--- NOTE | 2019-08-06 00:20 | PC.NURSE ---
Addendum entered by Sandeep Dunn R.N. 08/06/19 06:43: 0605: ABG done by RT. PEEP changed to 8 and FI02 changed to 45% by RT. Addendum entered by Sandeep Dunn R.N. 08/06/19 05:59: 0445: Levophed drip decreased to 3.5mcg/min. 0600: Levophed drip decreased to 3.0mcg/min. Addendum entered by Sandeep Dunn R.N. 08/06/19 04:13: 0000:Fentanyl drip at 1.65mcg/kg/min, decreased at this time to 1.25mcg/kg/min. Levophed drip remains at 3mcg/min = 11.3cc/hr. Propofol drip continues at 30mcg/kg/min = 14cc/hr. Altman catheter patent, urine is clear alina. SCDs are on. Current vent settings: TV 480, PEEP 10, FIO2 55%and rate of 16. OGT in place. 0100: HR intermittently below 60 and B/P 85/51. Fentanyl drip decreased to 1mcg/kg/min and adjusted for wt of 75kg. Rate is now 19cc/hr. 0135: HR continues to drop below 60 (sinus rhythm). RT at bedside due to air leak from ETT and LUCÍA Anthony at bedside re. bradycardia. Fentanyl drip turned off as ordered and HR trending up again into the 60's. 0245: HR 80's. Fentanyl restarted at 0.25mcg/kg/min = 5cc/hr. 0300: HR in the 50's and B/P 74/48 with map of 56. Fentanyl drip turned off and Levophed drip increased to 4mcg/min = 15cc/hr per LUCÍA Anthony. Original Note: numerical control operator Note: 2330: Vital signs stable. RT at bedside for vent check and suctioning.
[2019-08-06] MEDS: PIPERACILLIN-TAZO 4.5 GM/100 ML FROZ.PIGGY IV ×4 (01:04→19:10)
[2019-08-06] MEDS: fentaNYL 1,000 MCG in DEXTROSE 5% IN WATER 250 ML 30.42 ML IV (01:11)
[2019-08-06] MEDS: NOREPINEPHRINE 4 MG in DEXTROSE 5% IN WATER 250 ML 11.43 ML IV (01:14)
[2019-08-06] MEDS: ALBUTEROL HFA 60 PUFF/8 GM INH 8 PUFF INH ×5 (04:00→21:55)
[2019-08-06 04:45] LABS: Alanine Aminotransferase 17 IU/L (<50); Alkaline Phosphatase 69 U/L (38-126); Aspartate Aminotransferase 48 IU/L (17-59); Bilirubin Total 0.6 mg/dL (0.2-1.3); Bilirubin Unconjugated 0.2 mg/dL (0.0-1.1); Blood Urea Nitrogen 26 mg/dL (9-20); Calcium 8.8 mg/dL (8.4-10.2); Carbon Dioxide 28 mmol/L (22-32); Chloride 102 mmol/L (98-107); Estimated Glomerular Filt Rate > 60.0 mL/min (>60); Globulin 3.1 g/dL (1.7-4.1); Glucose 142 mg/dL (80-110); HEMOLYSIS < 15 (0-50); Magnesium 2.2 mg/dL (1.6-2.3); Sodium 136 mmol/L (137-145); Total Protein 6.1 g/dL (6.3-8.2)
[2019-08-06 04:50] LABS: Add Manual Diff / Slide Review NO; Basophils Absolute Auto 0 /uL (0-100); Basophils Percent Auto 0.2 % (0-2); Eosinophils Absolute Auto 0 /uL (0-450); Eosinophils Percent Auto 0.1 % (2-4); Hematocrit 35.4 % (41-53); Hemoglobin 11.9 g/dL (13.5-17.5); Lymphocytes Absolute Auto 1500 /uL (1100-4500); Lymphocytes Percent Auto 14.5 % (25-40); Mean Corpuscular HGB Conc 33.5 % (30-36); Mean Corpuscular Hemoglobin 31.1 PG (26-34); Mean Corpuscular Volume 92.7 fL (80-100); Monocytes Absolute Auto 400 /uL (0-900); Monocytes Percent Auto 3.6 % (3-14); Neutrophils Absolute Auto 8300 /uL (1500-7000); Neutrophils Percent Auto 81.6 % (50-75); Platelet Count 249 X10^3/uL (150-400); Red Blood Cell Count 3.82 X10^6/uL (4.5-5.9); Red Cell Distribution Width 17.1 % (11.6-14.8); White Blood Cell Count 10.1 X10^3/uL (4.5-11.0)
[2019-08-06 06:09] LABS: Fractionated Inspired Oxygen 55; HCO3 ABG 30 mmol/L (22-26); Oxygen Saturation ABG 100 % (95-100); PCO2 ABG 49.3 mmHg (35-45); PO2 ABG 203 mmHg (80-100); TCO2 ABG 31 mmol/L (21-31); pH ABG 7.39 (7.35-7.45)
[2019-08-06] MEDS: LEVOTHYROXINE 50 MCG TABLET PO (06:28)
--- NOTE | 2019-08-06 07:38 | PM.PN.1 ---
Subjective Subjective Date Patient Seen: 08/06/19 Time Patient Seen: 07:38 Interval history: Camron Burton is a 74-year-old male with history of rheumatoid arthritis on prednisone, hyperlipidemia, h/o PPM, and hypothyroidism who presented with shortness of breath. He was admitted with acute respiratory failure and was intubated after failing noninvasive positive-pressure ventilation trial. Continue to have difficulty weaning from Levophed while on sedation. His labs show marked improvement today in his white blood cell count, and his last fever was at around 10:00 p.m. last night. His PO2 has increased to 200 today, market improvement. Have started sedation vacations, and will potentially do a spontaneous breathing trial today. He is unlikely to be extubated today, anticipate this to be in the next 1-2 days however. Have ordered to start tube feeds today as well. Exam Vital Signs (past 8 hours): - 08/06/19 00:00 08/06/19 01:00 08/06/19 01:10 Temperature 97.6 F Pulse Rate 69 59 L 60 Respiratory Rate 16 16 Blood Pressure 93/52 L 85/51 L 101/56 L Pulse Oximetry 95 96 08/06/19 02:00 08/06/19 03:00 08/06/19 03:10 Temperature 96.7 F L Pulse Rate 63 59 L 74 Respiratory Rate 16 16 Blood Pressure 94/56 L 74/48 L 115/71 Pulse Oximetry 96 96 08/06/19 04:00 08/06/19 05:00 08/06/19 06:00 Temperature Pulse Rate 71 64 65 Respiratory Rate 16 16 16 Blood Pressure 95/58 L 95/59 L 116/67 Pulse Oximetry 95 96 96 Fraction of Inspired Oxygen 55 Oxygen Delivery Method Mechanical Ventilation Oxygen Flow Rate 30 Narrative Exam Narrative: GENERAL APPEARANCE: Intubated, on sedation vacation and alert, occasional grimacing, but generally comfortable appearing. SKIN: Inspection of the skin reveals no rashes, ulcerations or petechiae. HEENT: Normocephalic atraumatic, extraocular muscles are intact, oropharynx is clear and mucous membranes are moist, neck is supple without adenopathy NECK: Supple and symmetric. There was no thyroid enlargement, and no tenderness, or masses were felt. CHEST: Normal AP diameter and normal contour without any kyphoscoliosis. LUNGS: Improved rhonchi throughout lung boo anteriorly CARDIOVASCULAR: There was a regular rate and rhythm without any murmurs, gallops, rubs. Peripheral pulses were 2+ and symmetric. ABDOMEN: Soft and nondistended, no ascites was noted. MUSCULOSKELETAL: No effusions, muscle tone normal. EXTREMITIES: No cyanosis, clubbing or edema. NEUROLOGIC: on sedation trial opens eyes, follows commands, tries to speak. Objective Labs Result Diagrams: 08/06/19 04:30 08/06/19 04:30 Labs: Laboratory Results - last 24 hr 08/05/19 08/05/19 08/06/19 08:45 13:35 04:30 WBC RBC Hgb Hct MCV MCH MCHC RDW Plt Count Neut % (Auto) Lymph % (Auto) [place] % (Auto) Eos % (Auto) Baso % (Auto) Neut # (Auto) Lymph # (Auto) [place] # (Auto) Eos # (Auto) Baso # (Auto) ABG pH ABG pCO2 ABG pO2 ABG HCO3 ABG Total CO2 ABG O2 Saturation ABG Base Excess FiO2 Sodium 136 L Potassium 4.0 Chloride 102 Carbon Dioxide 28 BUN 26 H Creatinine 0.84 Estimated GFR > 60.0 BUN/Creatinine Ratio 31.0 H Glucose 142 H Calcium 8.8 Magnesium 2.2 Total Bilirubin 0.6 Conjugated Bilirubin 0.0 Unconjugated Bilirubin 0.2 AST 48 ALT 17 Alkaline Phosphatase 69 Total Protein 6.1 L Albumin 3.0 L Globulin 3.1 Albumin/Globulin Ratio 1.0 Nasal Screen MRSA (PCR) Negative for mrsa Vancomycin Trough 10.3 08/06/19 08/06/19 04:30 05:57 WBC 10.1 RBC 3.82 L Hgb 11.9 L Hct 35.4 L MCV 92.7 MCH 31.1 MCHC 33.5 RDW 17.1 H Plt Count 249 Neut % (Auto) 81.6 H Lymph % (Auto) 14.5 L [place] % (Auto) 3.6 Eos % (Auto) 0.1 L Baso % (Auto) 0.2 Neut # (Auto) 8300 H Lymph # (Auto) 1500 [place] # (Auto) 400 Eos # (Auto) 0 Baso # (Auto) 0 ABG pH 7.39 ABG pCO2 49.3 H ABG pO2 203 H ABG HCO3 30 H ABG Total CO2 31 ABG O2 Saturation 100 ABG Base Excess 5.0 H FiO2 55 Sodium Potassium Chloride Carbon Dioxide BUN Creatinine Estimated GFR BUN/Creatinine Ratio Glucose Calcium Magnesium Total Bilirubin Conjugated Bilirubin Unconjugated Bilirubin AST ALT Alkaline Phosphatase Total Protein Albumin Globulin Albumin/Globulin Ratio Nasal Screen MRSA (PCR) Vancomycin Trough Assessment & Plan Assessment & Plan narrative: Camron Burton is a 74-year-old male with history of rheumatoid arthritis on prednisone, hyperlipidemia, and hypothyroidism who presented with shortness of breath. He was admitted with acute respiratory failure and required intubation on HD#1 after failing noninvasive measures including heated high-flow and noninvasive positive-pressure ventilation. His respiratory status is improved today after diuresis and antibiotics. 1. Acute hypoxic respiratory failure, acute, present on admission -patient was hypoxic with initial sats were in the 70s and he had a respiratory alkalosis on admission, which was corrected with BiPAP in the emergency department. He further decompensated up stairs and looked to be in respiratory distress on BiPAP. He initially appeared to be improving upon arrival to the floor, however worsening appearance on his chest x-ray indicated some volume overload. There is indications of volume overload on his echocardiogram as well. He was diuresed and vent settings as well as imaging appears improved. -continue to follow ABG -continue to wean from the ventilator as tolerated, current settings much improved at FiO2 45% and PEEP of 8. -Continue lasix 40 mg IV daily to maintain euvolemia. -continue Zosyn and vancomycin to cover for oral anaerobes as well as MRSA given the severity of his illness pending cultures. Continue to monitor renal function closely while on this combination. -Albuterol MDI as needed -COVID-19 swab was negative x2. -CT angio of the chest ruled out PE however did indicate he has bilateral ground-glass opacities, cardiology note as an outpatient makes note of a possible interstitial lung disease so this may be chronic. -Doppler ultrasound of the lower extremities to rule out DVT was negative. -TTE with normal EF, no valvular dysfunction. States there is a pacing lead into the R ventricle but his is not in known history and chest imaging does not show a pacemaker present. Believe this to be an error in report. 2. Sepsis, secondary to probable acute bacterial pneumonia with a procalcitonin of 0.95 on admission that his increased to 6. -patient's initial lactate was 10 and improved to 3 after fluid resuscitation in the ED -he was started on IV Zosyn 4.5 q.6 and this will be continued -IV Vanco dosed per pharmacy -initial lactate of 10 now improved to 2. -improving lab studies today. 3. Hypotension, acute, present on admission -patient's blood pressure had improved with fluid resuscitation initially. Current hypotension is likely related to sedating medications rather than a septic response. He appeared volume overloaded on his echocardiogram. -PICC line placed -wean from levophed with MAP goal of >60. 4. Community-acquired pneumonia, acute, present on admission -Bilateral ground-glass opacities seen on CT of the lungs, unknown if this is an acute versus chronic finding -initial ED screen of COVID-19 was negative, repeat testing negative as well -obtain sputum culture -continue antibiotics as noted above -follow up blood cultures. 5. Rheumatoid arthritis, chronic, present on admission -patient will continue home dose of prednisone 7.5 mg p.o. daily 6. Hypothyroidism, chronic, present on admission -continue home dose of levothyroxine 50 mcg p.o. daily 7. History of a right bundle branch block, currently being worked up by Cardiology -essentially negative stress test -he will be following up with Dr. Chen, his telegraph dispatcher 8. Acute congestive heart failure with preserved ejection fraction,improved -as noted above patient has a normal ejection fraction on his echocardiogram but his respiratory status has improved markedly with IV diuresis. -continue Lasix 40 mg IV daily 9. Hypokalemia -repleted with IV potassium today. -will start tube feedings as noted above -Mg is 2.0 10. Elevated troponin, resolved -elevated troponin likely in the setting of increased demand due to sepsis -troponin peaked at 0.069 and subsequently down trended. There were no concerning findings on his EKG. I spent 35 minutes providing critical care management this patient. This excludes time spent in performing separately billed procedures. COVID-19 COVID-19 status: Negative Quality VTE Deep Vein Thrombosis/Pulmonary Embolism Present on Admission: No
[2019-08-06] MEDS: propofoL 1,000 MG/100 ML VIAL 6.993 MG IV (08:40)
[2019-08-06] MEDS: MORPHINE 2 MG/ML INJ IV ×4 (08:41→16:44)
[2019-08-06] MEDS: ENOXAPARIN 40 MG/0.4 ML SYRINGE SUBCUT (08:42)
[2019-08-06] MEDS: FUROSEMIDE 40 MG/4 ML VIAL IV (08:46)
[2019-08-06] MEDS: VANCOMYCIN 1,250 MG in SODIUM CHLORIDE 0.9% 250 ML IV ×2 (08:46→21:08)
--- NOTE | 2019-08-06 09:35 | PC.NURSE ---
Addendum entered by Ana Mahajan R.N. 08/06/19 13:29: initiated tube feedings per md order- will add cbg q 6h to worklist Addendum entered by Ana Mahajan R.N. 08/06/19 12:06: pt tolerated breathing trial x 1 hour Original Note: pt sedated on propofol and intermittent morphine, bilat wrist restraints remain intact and needed as pt frequently attempts to sit up and pull towards ett- sedation vacation this am in which all sedative rx turned off and this lasted approx 40 minutes until he sat bolt upright in bed- continue to wean off norepi gtt presently at 1.5mcg/min- hopeful for cpap trial later this date- update via telephone to , MARKOS
[2019-08-06] MEDS: SODIUM CHLORIDE 0.9% FLUSH 10 ML IV ×3 (09:44→21:05)
[2019-08-06] MEDS: SODIUM CHLORIDE 0.9% 250 ML 21 ML IV (12:27)
[2019-08-06] MEDS: propofoL 1,000 MG/100 ML VIAL 16.317 MG IV ×3 (13:48→23:12)
[2019-08-06] MEDS: DEXTROSE 5% WATER 500 ML 21 ML IV (13:50)
[2019-08-06] MEDS: fentaNYL 1,000 MCG in DEXTROSE 5% IN WATER 250 ML 32.443 ML IV (16:27)
[2019-08-06] MEDS: SIMVASTATIN 10 MG TABLET PO (21:05)
[2019-08-06] MEDS: predniSONE 2.5 MG TABLET 7.5 MG PO (21:05)
--- NOTE | 2019-08-06 23:19 | PC.NURSE ---
Patient was put back on fentanyl drip at 1.6 mcg/kg/hr, now at 1.2. BPs remain low but MAP >60, Levophed at 1.25mcg/kg/min. Patient was turned Q2Hr. Feed was increased to 30ml/hr at 2100, goal of 45 to be reached at 5am. PEEP:8, FiO2:45, ETV:480, RR:16. ISMAEL -3/-4, patient will sometimes respond to touch with a hand raise or eyebrow raise. Altman output: 650ml, very dark yellow, with a green/brown tinge. Propofol at 35 mcg/kg/min, tubing changed at 2300. HR remained steady in 60's-70's all shift.
[2019-08-07] VITALS (36 sets, daily range): BP systolic 82–137; BP diastolic 50–71; PULSE 49–74; RESP 12–22; TEMP 36.3–37.6; O2SAT 90–96
[2019-08-07] MEDS: PIPERACILLIN-TAZO 4.5 GM/100 ML FROZ.PIGGY IV ×5 (00:37→23:57)
--- NOTE | 2019-08-07 00:42 | PC.NURSE ---
Addendum entered by Sandeep Dunn R.N. 08/07/19 06:34: 0430: Turned and repositioned. Oral care, nestor care given. 0500: Glucerna 1.2 OGT feedings increased to 45cc/hr as ordered. 0615: RT at bedside. ABG done. Results given to LUCÍA Anthony. Turned and repositioned to lt side. Bruise noted on pt's rt ear. Pt desated to 89% after turning; recovered to 92% after adjusting his position. RT at bedside and had decreased his FIO2 to 35%. Addendum entered by Sandeep Dunn R.N. 08/07/19 02:40: 0210: B/P 82/52 with map of 62. Fentanyl drip decreased to 1mcg/kg/hr. RT at bedside for vent check. Oral care given. ETT suctioned for small amt thick white secretions. Original Note: Floor Manager Note: 0000: Pt remains on Levophed drip at 1.5mcg/min, Propofol 35 mg/kg/hr, and Fentanyl 1.2mcg/kg/hr. SCDs on. Altman catheter patent, with minimal amt alina urine. Tube feeding of Glucerna 1.2 infusing through ogt at 30cc/hr. Current vent settings are TV 480, PEEP 8, rate of 16, and FIO2 of 45%. PICC in place in rt upper arm with dressing cdi, and lt forearm PIV in place, saline locked. 0020: RT at bedside for vent check.
[2019-08-07] MEDS: fentaNYL 1,000 MCG in DEXTROSE 5% IN WATER 250 ML 20.277 ML IV ×2 (03:00→17:58)
[2019-08-07 04:55] LABS: Add Manual Diff / Slide Review NO; Basophils Absolute Auto 100 /uL (0-100); Basophils Percent Auto 0.8 % (0-2); Eosinophils Absolute Auto 100 /uL (0-450); Eosinophils Percent Auto 1.3 % (2-4); Hematocrit 32.4 % (41-53); Lymphocytes Absolute Auto 1300 /uL (1100-4500); Mean Corpuscular Hemoglobin 31.4 PG (26-34); Mean Corpuscular Volume 92.2 fL (80-100); Monocytes Absolute Auto 400 /uL (0-900); Monocytes Percent Auto 5.5 % (3-14); Neutrophils Absolute Auto 6000 /uL (1500-7000); Neutrophils Percent Auto 76.4 % (50-75); Platelet Count 259 X10^3/uL (150-400); Red Blood Cell Count 3.51 X10^6/uL (4.5-5.9); Red Cell Distribution Width 17.5 % (11.6-14.8); White Blood Cell Count 7.9 X10^3/uL (4.5-11.0)
[2019-08-07 05:05] LABS: Alanine Aminotransferase 25 IU/L (<50); Albumin 2.7 g/dL (3.5-5.0); Albumin Globulin Ratio 0.9 (1.0-2.8); Alkaline Phosphatase 110 U/L (38-126); Aspartate Aminotransferase 76 IU/L (17-59); BUN Creatinine Ratio 29.5 (6-22); Bilirubin Total 0.6 mg/dL (0.2-1.3); Bilirubin Unconjugated 0.2 mg/dL (0.0-1.1); Blood Urea Nitrogen 18 mg/dL (9-20); Calcium 8.5 mg/dL (8.4-10.2); Carbon Dioxide 34 mmol/L (22-32); Chloride 100 mmol/L (98-107); Estimated Glomerular Filt Rate > 60.0 mL/min (>60); Glucose 133 mg/dL (80-110); HEMOLYSIS < 15 (0-50); Potassium 3.6 mmol/L (3.4-5.1); Sodium 136 mmol/L (137-145); Total Protein 5.7 g/dL (6.3-8.2)
[2019-08-07] MEDS: propofoL 1,000 MG/100 ML VIAL 16.317 MG IV ×3 (05:27→23:57)
[2019-08-07] MEDS: LEVOTHYROXINE 50 MCG TABLET PO (05:30)
[2019-08-07 05:58] LABS: Fractionated Inspired Oxygen 0.45; HCO3 ABG 34 mmol/L (22-26); Oxygen Saturation ABG 98 % (95-100); PCO2 ABG 51.6 mmHg (35-45); PO2 ABG 107 mmHg (80-100); TCO2 ABG 36 mmol/L (21-31); pH ABG 7.43 (7.35-7.45)
[2019-08-07] MEDS: ALBUTEROL HFA 60 PUFF/8 GM INH 8 PUFF INH ×6 (06:14→22:47)
[2019-08-07] MEDS: VANCOMYCIN 1,250 MG in SODIUM CHLORIDE 0.9% 250 ML IV ×2 (08:22→20:59)
[2019-08-07] MEDS: FUROSEMIDE 40 MG/4 ML VIAL IV (08:22)
[2019-08-07] MEDS: ENOXAPARIN 40 MG/0.4 ML SYRINGE SUBCUT (08:22)
--- NOTE | 2019-08-07 09:40 | PC.NURSE ---
Addendum entered by Ana Mahajan R.N. 08/07/19 11:07: tube feed residual >450mls- on hold x 2h per protocol, bathed and turned, lessened fentanyl gtt to 0.75mcg, and propofol to 30mcg due to light b/p Addendum entered by Ana Mahajan R.N. 08/07/19 10:09: PT PLACED BACK ON VENT WITH SETTINGS: FIO2 40%, PEEP 8, TV 480, RR 16- PROPOFOL RESUMED AT 35MCG/KG, AND FENT RETURNED TO 1MCG/MIN NO NEED FOR LEVOPHED AT THIS TIME- RESTRAINTS IN PLACE Original Note: updated , MARKOS, VIA TELEPHONE CALL- PT HAD STABLE INVENTORY CONTROL ASSOCIATE PER REPORT. INITIAL ASSESSMENT FOUND HIM TO HAVE TUBE FEEDING AT GOAL RATE OF 45/H WITH 250CC Q4H FLUSHES- ACTIVE BT'S, OLSON WITH ADEQUATE UOP- TINGED SLIGHTLY GREEN, AND HOB AT ONLY 23DEGREES OF ELEVATION- INCREASED THIS TO 38-48 DEGREES, SEDATION VACATION AND WEANING TRIAL FROM [id number] AND DID WELL. HOPEFUL FOR EXTUBATION TOMORROW. LUNGS WITH SCATTERED COARSENESS ALL MALAVE BUT INCREASED AIR MOVEMENT THROUGHOUT. SCD'S REMOVED X 1 HOUR- CONTINUING WITH IV ABX VANCO AND ZOSYN
--- NOTE | 2019-08-07 10:18 | DIET.PN ---
Dietary Progress Note Assessment: Have notified dietary to please provide Glucerna 1.5 to meet energy needs. Per nurse report, patient is at goal rate of 45ml/hr.
[2019-08-07] MEDS: propofoL 1,000 MG/100 ML VIAL 11.655 MG IV (12:09)
[2019-08-07] MEDS: SODIUM CHLORIDE 0.9% FLUSH 10 ML IV ×2 (12:09→20:55)
[2019-08-07] MEDS: DEXTROSE 5% WATER 500 ML 21 ML IV (12:10)
[2019-08-07] MEDS: SODIUM CHLORIDE 0.9% 250 ML 21 ML IV (12:11)
--- NOTE | 2019-08-07 12:33 | CM.DPC ---
DCP Cont: Per MD, pt remains somewhat stable but likely remain intubated today with plan of extubating tomorrow. Pt has been on vent since admit on 08/03/19 and would benefit from PT/OT after extubation to determine d/c planning needs. Per RN, was updated on pt's status this morning and remains involved via phone. Plan: SW to follow for hopeful pt's extubation tomorrow and beginning to work with therapies towards determining if he will be stable for d/c home with spouse and any further identified needs. Adriane Archibald MSW
--- NOTE | 2019-08-07 19:29 | P.PN_ITS ---
Subjective Subjective Date Patient Seen: 08/07/19 Time Patient Seen: 19:29 Interval history: Camron Burton is a 74-year-old male with history of rheumatoid arthritis on prednisone, hyperlipidemia, h/o PPM, and hypothyroidism who presented with shortness of breath. He was admitted with acute respiratory failure and was intubated after failing noninvasive positive-pressure ventilation trial. Continue to have difficulty weaning from Levophed while on sedation. His labs show marked improvement today in his white blood cell count. He was able to tolerate a breathing trial both yesterday and today, however PaO2 was slightly decreased from yesterday and patient appeared more likely than not that he would fail extubation. Will repeat breathing trial tomorrow but it is most likely will attempt to extubate. His mental status during sedation vacations is excellent. Exam Vital Signs (past 8 hours): - 08/07/19 11:41 08/07/19 12:35 08/07/19 13:00 Temperature Pulse Rate 52 L 51 L 54 L Respiratory Rate 16 16 16 Blood Pressure 90/51 L 93/50 L 94/53 L Pulse Oximetry 95 93 93 08/07/19 14:00 08/07/19 15:01 08/07/19 15:30 Temperature 98.6 F Pulse Rate 59 L 55 L Respiratory Rate 16 16 Blood Pressure 91/52 L 86/51 L Pulse Oximetry 92 93 95 08/07/19 16:32 08/07/19 17:00 08/07/19 18:00 Temperature 99.1 F 98.5 F 99.2 F Pulse Rate 49 L 54 L 54 L Respiratory Rate 16 16 16 Blood Pressure 91/50 L 88/54 L 85/52 L Pulse Oximetry 95 93 95 08/07/19 19:00 Temperature 99.4 F Pulse Rate 58 L Respiratory Rate 13 Blood Pressure 83/50 L Pulse Oximetry 91 Fraction of Inspired Oxygen 40 Oxygen Delivery Method Mechanical Ventilation Oxygen Flow Rate 0 Narrative Exam Narrative: GENERAL APPEARANCE: Intubated, on sedation vacation and alert, occasional grimacing, but generally comfortable appearing. SKIN: Inspection of the skin reveals no rashes, ulcerations or petechiae. HEENT: Normocephalic atraumatic, extraocular muscles are intact, oropharynx is clear and mucous membranes are moist, neck is supple without adenopathy NECK: Supple and symmetric. There was no thyroid enlargement, and no tenderness, or masses were felt. CHEST: Normal AP diameter and normal contour without any kyphoscoliosis. LUNGS: Improved rhonchi throughout lung boo anteriorly CARDIOVASCULAR: There was a regular rate and rhythm without any murmurs, gallops, rubs. Peripheral pulses were 2+ and symmetric. ABDOMEN: Soft and nondistended, no ascites was noted. MUSCULOSKELETAL: No effusions, muscle tone normal. EXTREMITIES: No cyanosis, clubbing or edema. NEUROLOGIC: on sedation trial opens eyes, follows commands, tries to speak. Objective Labs Result Diagrams: 08/07/19 04:35 08/07/19 04:35 Labs: Laboratory Results - last 24 hr 08/07/19 08/07/19 08/07/19 04:35 04:35 05:48 WBC 7.9 RBC 3.51 L Hgb 11.0 L Hct 32.4 L MCV 92.2 MCH 31.4 MCHC 34.0 RDW 17.5 H Plt Count 259 Neut % (Auto) 76.4 H Lymph % (Auto) 16.0 L [place] % (Auto) 5.5 Eos % (Auto) 1.3 L Baso % (Auto) 0.8 Neut # (Auto) 6000 Lymph # (Auto) 1300 [place] # (Auto) 400 Eos # (Auto) 100 Baso # (Auto) 100 ABG pH 7.43 ABG pCO2 51.6 H ABG pO2 107 H ABG HCO3 34 H ABG Total CO2 36 H ABG O2 Saturation 98 ABG Base Excess 10.0 H FiO2 0.45 Sodium 136 L Potassium 3.6 Chloride 100 Carbon Dioxide 34 H BUN 18 Creatinine 0.61 L Estimated GFR > 60.0 BUN/Creatinine Ratio 29.5 H Glucose 133 H Calcium 8.5 Magnesium 2.0 Total Bilirubin 0.6 Conjugated Bilirubin 0.0 Unconjugated Bilirubin 0.2 AST 76 H ALT 25 Alkaline Phosphatase 110 Total Protein 5.7 L Albumin 2.7 L Globulin 3.0 Albumin/Globulin Ratio 0.9 L Assessment & Plan Assessment & Plan narrative: Camron Burton is a 74-year-old male with history of rheumatoid arthritis on prednisone, hyperlipidemia, and hypothyroidism who pres ented with shortness of breath. He was admitted with acute respiratory failure and required intubation on HD#1 after failing noninvasive measures including heated high-flow and noninvasive positive-pressure ventilation. His respiratory status is improved today after diuresis and antibiotics. 1. Acute hypoxic respiratory failure, acute, present on admission -patient was hypoxic with initial sats were in the 70s and he had a respiratory alkalosis on admission, which was corrected with BiPAP in the emergency department. He further decompensated up stairs and looked to be in respiratory distress on BiPAP. He initially appeared to be improving upon arrival to the floor, however worsening appearance on his chest x-ray indicated some volume overload. There is indications of volume overload on his echocardiogram as well. He was diuresed and vent settings as well as imaging appears improved. -continue to follow ABG -continue to wean from the ventilator as tolerated. -Continue lasix 40 mg IV daily to maintain euvolemia. -continue Zosyn and vancomycin to cover for oral anaerobes as well as MRSA given the severity of his illness pending cultures. Continue to monitor renal function closely while on this combination. -Albuterol MDI as needed -COVID-19 swab was negative x2. -CT angio of the chest ruled out PE however did indicate he has bilateral ground-glass opacities, cardiology note as an outpatient makes note of a possible interstitial lung disease so this may be chronic. -Doppler ultrasound of the lower extremities to rule out DVT was negative. -TTE with normal EF, no valvular dysfunction. States there is a pacing lead into the R ventricle but his is not in known history and chest imaging does not show a pacemaker present. Believe this to be an error in report. 2. Sepsis, secondary to probable acute bacterial pneumonia with a procalcitonin of 0.95 on admission that his increased to 6. -patient's initial lactate was 10 and improved after fluid resuscitation in the ED -he was started on IV Zosyn 4.5 q.6 and this will be continued -IV Vanco dosed per pharmacy -improving lab studies today. 3. Hypotension, acute, present on admission -patient's blood pressure had improved with fluid resuscitation initially. Current hypotension is likely related to sedating medications rather than a septic response. He appeared volume overloaded on his echocardiogram. -PICC line placed -wean from levophed with MAP goal of >60. 4. Community-acquired pneumonia, acute, present on admission -Bilateral ground-glass opacities seen on CT of the lungs, unknown if this is an acute versus chronic finding -initial ED screen of COVID-19 was negative, repeat testing negative as well -obtain sputum culture -continue antibiotics as noted above -follow up blood cultures. 5. Rheumatoid arthritis, chronic, present on admission -patient will continue home dose of prednisone 7.5 mg p.o. daily 6. Hypothyroidism, chronic, present on admission -continue home dose of levothyroxine 50 mcg p.o. daily 7. History of a right bundle branch block, currently being worked up by Cardiology -essentially negative stress test as an outpatient -he will be following up with Dr. Chen, his datastage consultant 8. Acute congestive heart failure with preserved ejection fraction,improved -as noted above patient has a normal ejection fraction on his echocardiogram but his respiratory status has improved markedly with IV diuresis. -continue Lasix 40 mg IV daily 9. Hypokalemia -repleted with IV potassium. -have started tube feedings as noted above -Mg is 2.0 10. Elevated troponin, resolved -elevated troponin likely in the setting of increased demand due to sepsis -troponin peaked at 0.069 and subsequently down trended. There were no concerning findings on his EKG. I spent 35 minutes providing critical care management this patient. This excludes time spent in performing separately billed procedures. COVID-19 COVID-19 status: Negative Quality VTE Deep Vein Thrombosis/Pulmonary Embolism Present on Admission: No
[2019-08-07] MEDS: predniSONE 2.5 MG TABLET 7.5 MG PO (20:55)
[2019-08-07] MEDS: SIMVASTATIN 10 MG TABLET PO (20:55)
--- NOTE | 2019-08-07 22:32 | PC.NURSE ---
No changes during shift, vent settings remain at PEEP: 8, FiO2: 40%, ETV: 480, RR: 16. Occasional cuff air leak requires suctioning. Propofol @ 30 mcg/kg/min, fentanyl @ 1.2 mcg/min/hr. BP low but MAP >60. HR dips into high 40's, maintains in 50's, low 60's. ISMAEL -3. Altman put out 300ml. Residual for OG tube at 1700 was 200, but at 2100 was 350ml- however, 250ml of flush had been given in last hour so feeding was held just 1hr.
[2019-08-08] VITALS (28 sets, daily range): BP systolic 86–145; BP diastolic 50–76; PULSE 48–83; RESP 10–24; TEMP 36.4–37.2; O2SAT 85–99
[2019-08-08 02:01] LABS: SARS CoV19 IgG Negative (Negative)
--- NOTE | 2019-08-08 02:02 | PC.NURSE ---
Addendum entered by Sapna Champagne R.N. 08/08/19 03:00: Tube feed residual rechecked, 150ml returned, Glucerna 1.2 restarted at goal rate of 45ml/hr. Original Note: Head Well Puller Note-Patient is sedated with propofol gtt at 30mcg/min, Fentanyl gtt at 1.2mcg/min, RASS -2 to -3, does open eyes briefly and weakly moves extremeties but not always to command. Tube feed residual 320ml, returned to patient via OGT and held. Will recheck in 2 hours per protocol. CBG 128, no insulin coverage ordered. Skin moist, afebrile. SB/SR, BP low but stable, MAP >65, see vital trends. No change to vent settings from previous shift. Soft wrist restraints in place with no s/s injury.
[2019-08-08 04:32] LABS: Add Manual Diff / Slide Review NO; Basophils Absolute Auto 100 /uL (0-100); Basophils Percent Auto 0.9 % (0-2); Eosinophils Absolute Auto 300 /uL (0-450); Eosinophils Percent Auto 3.5 % (2-4); Hematocrit 32.6 % (41-53); Lymphocytes Absolute Auto 1400 /uL (1100-4500); Lymphocytes Percent Auto 19.2 % (25-40); Mean Corpuscular HGB Conc 33.8 % (30-36); Mean Corpuscular Volume 91.9 fL (80-100); Monocytes Absolute Auto 500 /uL (0-900); Monocytes Percent Auto 6.8 % (3-14); Neutrophils Absolute Auto 5000 /uL (1500-7000); Neutrophils Percent Auto 69.6 % (50-75); Platelet Count 268 X10^3/uL (150-400); Red Blood Cell Count 3.54 X10^6/uL (4.5-5.9); Red Cell Distribution Width 17.1 % (11.6-14.8); White Blood Cell Count 7.2 X10^3/uL (4.5-11.0)
[2019-08-08 04:44] LABS: BUN Creatinine Ratio 27.1 (6-22); Blood Urea Nitrogen 16 mg/dL (9-20); Calcium 8.4 mg/dL (8.4-10.2); Carbon Dioxide 35 mmol/L (22-32); Chloride 97 mmol/L (98-107); Estimated Glomerular Filt Rate > 60.0 mL/min (>60); Glucose 124 mg/dL (80-110); HEMOLYSIS < 15 (0-50); Potassium 3.5 mmol/L (3.4-5.1); Sodium 136 mmol/L (137-145)
[2019-08-08] MEDS: fentaNYL 1,000 MCG in DEXTROSE 5% IN WATER 250 ML 20.277 ML IV (04:57)
[2019-08-08 05:01] LABS: Procalcitonin 1.64 ng/mL (<0.5)
[2019-08-08] MEDS: LEVOTHYROXINE 50 MCG TABLET PO (05:56)
[2019-08-08 06:16] LABS: HCO3 ABG 35 mmol/L (22-26); Oxygen Saturation ABG 95 % (95-100); PCO2 ABG 51.1 mmHg (35-45); PO2 ABG 72 mmHg (80-100); TCO2 ABG 37 mmol/L (21-31); pH ABG 7.44 (7.35-7.45)
[2019-08-08 06:17] LABS: Fractionated Inspired Oxygen 0.35
[2019-08-08] MEDS: PIPERACILLIN-TAZO 4.5 GM/100 ML FROZ.PIGGY IV ×3 (06:30→19:07)
[2019-08-08] MEDS: SODIUM CHLORIDE 0.9% FLUSH 10 ML IV ×2 (06:31→07:58)
[2019-08-08] MEDS: propofoL 1,000 MG/100 ML VIAL 13.986 MG IV ×2 (06:31→13:08)
[2019-08-08] MEDS: ALBUTEROL HFA 60 PUFF/8 GM INH 8 PUFF INH ×2 (07:51→10:59)
[2019-08-08] MEDS: ENOXAPARIN 40 MG/0.4 ML SYRINGE SUBCUT (07:57)
[2019-08-08] MEDS: FUROSEMIDE 40 MG/4 ML VIAL IV (07:57)
[2019-08-08 09:05] LABS: Vancomycin Trough 10.6 ug/mL (10-20)
[2019-08-08] MEDS: VANCOMYCIN 1,250 MG in SODIUM CHLORIDE 0.9% 250 ML IV (09:46)
[2019-08-08] MEDS: DEXTROSE 5% WATER 500 ML 21 ML IV (09:58)
--- NOTE | 2019-08-08 11:07 | DI.RAD.S_ITS ---
PROCEDURE: XR CHEST 1V INDICATIONS: low PaO2, assess volume status TECHNIQUE: One view of the chest was acquired. COMPARISON: [facility], CR, XR CHEST 1V, 08/05/2019, 15:11. [facility], CR, XR CHEST 1V, 08/04/2019, 14:55. FINDINGS: Surgical changes and devices: Endotracheal tube in the mid trachea. Enteric tube course into the stomach. Right-sided PICC line with the tip at the caval atrial junction. Lungs and pleura: Diffuse bilateral airspace opacity. No pleural effusions or pneumothorax. Mediastinum: Mediastinal contours appear normal. Heart size is normal. Bones and chest wall: No suspicious bony lesions. Overlying soft tissues appear unremarkable. IMPRESSION: Similar diffuse bilateral airspace opacity. Tubes and lines project in the expected locations. Dictated by: Tima Hdez M.D. on 08/08/2019 at 11:28 Approved by: Tima Hdez M.D. on 08/08/2019 at 11:30
[2019-08-08 13:08] LABS: SARS-CoV19- IgM Negative (Negative)
[2019-08-08] MEDS: FUROSEMIDE 20 MG/2 ML VIAL IV (13:08)
--- NOTE | 2019-08-08 13:57 | PC.NURSE ---
Day Shift Note Pt sedated on propofol and fentanyl on the ventilator, RASS-2/-3. Tube feed residual checked during am assessment and resulted 300 ml. Tube feeds stopped per protocol at 0745 and MD notified. Tube feeds to remain off at this time as extubation is the goal today. Lung sounds coarse bilaterally, SpO2 92-93% on FiO2 of 35% and decreased PEEP of 5. Sedation off for sedation vacation and CPAP trial at 0820 and CPAP trial started by RT at 0830. Pt initially able to follow simple directions and track with eyes but became increasingly agitated during trial, pulling against restraints, biting tube, and not following any commands. 3 staff required in room at this time, fentanyl 1 mcg/kg/hr and propofol 30 mcg/kg/min sedation restarted at 0900. CXR done and additional Lasix 20 mg IV administered per MD order. Second CPAP trial started at 1337 with propofol continuing at a decreased rate of 15 mcg/kg/min, fentanyl gtt off. Pt able to participate in trial, mild restlessness noted. SpO2 90-94% with FiO2 of 40%, pulling good volumes and RR at 14-16 bpm, breathing nonlabored. At 1430 Dr. Pride updated and at bedside, propofol turned off. Pt extubated to heated high flow NC at 1440. Pt agitated and pulling at lines, oriented to place and situation. Stated you are all trying to kill me. Provided reassurance and reoriented. fIo2 AT 75% with 50L, SpO2 92-96%. Able to cough and manage secretions at this time. Restraints removed at 1440. , Alyce, updated via phone.
--- NOTE | 2019-08-08 14:23 | CM.DPC ---
DCP: continued: case received, EMR reviewed and including d/c planning notes for last few days. Discussed case in Team Rounds with Dr. Pride (his progress note is not yet available for today). He did say that pt, this morning, remained with need for ventilator support. Spoke with pt's Alyce and introduced self and role of the CM/dc planning dept. Assured her that our team would be following as the POC unfolded and as pt was able to wean off ventilator support. Exect that PT and OT will be ordered as appropriate when pt stable for same. Checked in now with RADHA Henderson. She stated that a wean had been tried earlier today and pt did not do well. He is now newly in process of another wean and she will be updating pt's as needed. P: DCP team to continue to follow as per above. COVID-19 results: negative: 08/02.
--- NOTE | 2019-08-08 15:17 | P.PN_ITS ---
Subjective Subjective Date Patient Seen: 08/08/19 Time Patient Seen: 15:17 Interval history: Camron Burton is a 74-year-old male with history of rheumatoid arthritis on prednisone, hyperlipidemia, h/o PPM, and hypothyroidism who presented with shortness of breath. He was admitted with acute respiratory failure and was intubated after failing noninvasive positive-pressure ventilation trial. Patient was able to be weaned from his Levophed and has remained off for quite some time now. Attempted sedation trial with breathing trial soon after this morning, however the patient regained agitated and slightly tachypneic after about 20 minutes. Repeated chest x-ray which showed some mild bilateral haziness and so patient was given an extra 20 mg of Lasix. Performed breathing trial with extremely light sedation, patient tolerated this for 40 minutes and appeared comfortable, so sedation was shut off and patient was extubated to high-flow nasal cannula. He currently has good saturations, and will continue to wean from high-flow today. Exam Vital Signs (past 8 hours): - 08/08/19 08:00 08/08/19 08:45 08/08/19 09:00 Temperature Pulse Rate 51 L 79 Respiratory Rate 16 10 L Blood Pressure 93/55 L 105/63 Pulse Oximetry 95 85 L 91 08/08/19 10:00 08/08/19 11:00 08/08/19 12:00 Temperature 98.6 F Pulse Rate 69 69 62 Respiratory Rate 16 16 16 Blood Pressure 105/59 L 86/50 L 94/54 L Pulse Oximetry 87 L 90 L 94 08/08/19 13:00 Temperature Pulse Rate 70 Respiratory Rate 19 Blood Pressure 105/60 Pulse Oximetry 93 Fraction of Inspired Oxygen 0.4 Oxygen Delivery Method Mechanical Ventilation Oxygen Flow Rate 0 Narrative Exam Narrative: GENERAL APPEARANCE: Intubated, on sedation vacation and alert, occasional grimacing, but generally comfortable appearing. SKIN: Inspection of the skin reveals no rashes, ulcerations or petechiae. HEENT: Normocephalic atraumatic, extraocular muscles are intact, oropharynx is clear and mucous membranes are moist, neck is supple without adenopathy NECK: Supple and symmetric. There was no thyroid enlargement, and no tenderness, or masses were felt. CHEST: Normal AP diameter and normal contour without any kyphoscoliosis. LUNGS: Improved rhonchi throughout lung boo anteriorly CARDIOVASCULAR: There was a regular rate and rhythm without any murmurs, gallops, rubs. Peripheral pulses were 2+ and symmetric. ABDOMEN: Soft and nondistended, no ascites was noted. MUSCULOSKELETAL: No effusions, muscle tone normal. EXTREMITIES: No cyanosis, clubbing or edema. NEUROLOGIC: on sedation trial opens eyes, follows commands, tries to speak. Objective Labs Result Diagrams: 08/08/19 04:20 08/08/19 04:20 Labs: Laboratory Results - last 24 hr 08/04/19 08/08/19 08/08/19 20:49 04:20 04:20 WBC RBC Hgb Hct MCV MCH MCHC RDW Plt Count Neut % (Auto) Lymph % (Auto) [place] % (Auto) Eos % (Auto) Baso % (Auto) Neut # (Auto) Lymph # (Auto) [place] # (Auto) Eos # (Auto) Baso # (Auto) ABG pH ABG pCO2 ABG pO2 ABG HCO3 ABG Total CO2 ABG O2 Saturation ABG Base Excess FiO2 Sodium 136 L Potassium 3.5 Chloride 97 L Carbon Dioxide 35 H BUN 16 Creatinine 0.59 L Estimated GFR > 60.0 BUN/Creatinine Ratio 27.1 H Glucose 124 H Calcium 8.4 Magnesium 2.0 Procalcitonin 1.64 H Vancomycin Trough SARS-CoV-2 IgG Ab Negative SARS-CoV-2 IgM Ab Negative 08/08/19 08/08/19 08/08/19 04:20 06:08 08:30 WBC 7.2 RBC 3.54 L Hgb 11.0 L Hct 32.6 L MCV 91.9 MCH 31.0 MCHC 33.8 RDW 17.1 H Plt Count 268 Neut % (Auto) 69.6 Lymph % (Auto) 19.2 L [place] % (Auto) 6.8 Eos % (Auto) 3.5 Baso % (Auto) 0.9 Neut # (Auto) 5000 Lymph # (Auto) 1400 [place] # (Auto) 500 Eos # (Auto) 300 Baso # (Auto) 100 ABG pH 7.44 ABG pCO2 51.1 H ABG pO2 72 L ABG HCO3 35 H ABG Total CO2 37 H ABG O2 Saturation 95 ABG Base Excess 11.0 H FiO2 0.35 Sodium Potassium Chloride Carbon Dioxide BUN Creatinine Estimated GFR BUN/Creatinine Ratio Glucose Calcium Magnesium Procalcitonin Vancomycin Trough 10.6 SARS-CoV-2 IgG Ab SARS-CoV-2 IgM Ab Assessment & Plan Assessment & Plan narrative: Camron Burton is a 74-year-old male with history of rheumatoid arthritis on prednisone, hyperlipidemia, and hypothyroidism who presented with shortness of breath. He was admitted with acute respiratory failure and required intubation on HD#1 after failing noninvasive measures in cluding heated high-flow and noninvasive positive-pressure ventilation. His respiratory status improved with diuresis and antibiotics and he was extubated today 08/08/19. 1. Acute hypoxic respiratory failure, acute, present on admission -patient was hypoxic with initial sats were in the 70s and he had a respiratory alkalosis on admission, which was corrected with BiPAP in the emergency department. He further decompensated up stairs and looked to be in respiratory distress on BiPAP. He initially appeared to be improving upon arrival to the floor, however worsening appearance on his chest x-ray indicated some volume overload. There is indications of volume overload on his echocardiogram as well. He was diuresed and vent settings as well as imaging appears improved. -extubated on 08/07 to HFNC, continue to wean oxygen as tolerated. -will hold additional lasix now that extubated. -continue Zosyn and vancomycin to cover for oral anaerobes as well as MRSA given the severity of his illness pending cultures. Continue to monitor renal function closely while on this combination. -Albuterol MDI as needed -COVID-19 swab was negative x2. COVID-19 antibody testing was sent. -CT angio of the chest ruled out PE however did indicate he has bilateral ground-glass opacities, cardiology note as an outpatient makes note of a possible interstitial lung disease so this may be chronic. -Doppler ultrasound of the lower extremities to rule out DVT was negative. -TTE with normal EF, no valvular dysfunction. States there is a pacing lead into the R ventricle but his is not in known history and chest imaging does not show a pacemaker present. Believe this to be an error in report. 2. Sepsis, secondary to probable acute bacterial pneumonia with a procalcitonin of 0.95 on admission that his increased to 6 and has now improved to 1.64 today. -patient's initial lactate was 10 and improved after fluid resuscitation in the ED -he was started on IV Zosyn 4.5 q.6 and this will be continued -IV Vanco dosed per pharmacy which can be discontinued today given negative cultures. -continue to follow CBC and procalcitonin. 3. Hypotension, acute, present on admission, resolved -patient's blood pressure had improved with fluid resuscitation initially. Hypotension is likely related to sedating medications rather than a septic response. He appeared volume overloaded on his echocardiogram. -PICC line placed and Levophed has been discontinued. 4. Community-acquired pneumonia, acute, present on admission -Bilateral ground-glass opacities seen on CT of the lungs, unknown if this is an acute versus chronic finding given above mention of possible interstitial lung disease. -initial ED screen of COVID-19 was negative, repeat testing negative as well -sputum culture which was obtained a few days after antibiotics were started was negative for growth. Sputum culture was not sent given lack of initial sputum production. -continue antibiotics as noted above -blood cultures with no growth to date 5. Rheumatoid arthritis, chronic, present on admission -patient will continue home dose of prednisone 7.5 mg p.o. daily 6. Hypothyroidism, chronic, present on admission -continue home dose of levothyroxine 50 mcg p.o. daily 7. 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 Acute congestive heart failure with preserved ejection fraction,improved -as noted above patient has a normal ejection fraction on his echocardiogram but his respiratory status has improved markedly with IV diuresis. -continue Lasix 40 mg IV daily 9. Hypokalemia, resolved -repleted with IV potassium. And will continue to follow -Mg is 2.0 10. Elevated troponin, resolved -elevated troponin likely in the setting of increased demand due to sepsis -troponin peaked at 0.069 and subsequently down trended. There were no concerning findings on his EKG. I spent 35 minutes providing critical care management this patient. This excludes time spent in performing separately billed procedures. COVID-19 COVID-19 status: Negative Quality VTE Deep Vein Thrombosis/Pulmonary Embolism Present on Admission: No
[2019-08-08] MEDS: MORPHINE 2 MG/ML INJ IV ×2 (15:50→18:04)
--- NOTE | 2019-08-08 18:13 | PC.NURSE ---
1800 Pt was extubated today at 1440, tolerated well. Currently on highflow NC 75%/50L and sat at 97%. Spoke to , explained that pt was extubated today and is currently out of bed sitting in a recliner, doing well. Pt has become more alert, and is able to make needs known. Trial with sips of water, pt coughed and stated he did not want anymore. Patient states his throat is sore, left elbow hurts (no s/s of injury), he also states he is having some generalized body pain, 2mg Morphine administered as ordered. Oriented to call light, offered oral care, will continue to monitor.
[2019-08-08] MEDS: ALBUTEROL 2.5 MG/3 ML NEB (ADULT) INH (20:57)
[2019-08-09] VITALS (15 sets, daily range): BP systolic 122–153; BP diastolic 71–84; PULSE 65–79; RESP 15–118; TEMP 36.4–37; O2SAT 91–98
--- NOTE | 2019-08-09 00:14 | PC.NURSE ---
Addendum entered by Sandeep Dunn R.N. 08/09/19 06:50: 0635: Pt states he is having pain in throat and back. Medicated with Morphine 2mg IV. Addendum entered by Sandeep Dunn R.N. 08/09/19 06:06: 0540: O2 sat 65%: pt took HHFNC off. Cannula replaced and pt coached to breathe through his nose; sats recovered quickly back to 97%. Addendum entered by Sandeep Dunn R.N. 08/09/19 06:04: 0430: Assisted to scoot up in bed and reposition. Answers questions appropriately, but continues to be forgetful of date and time. Denies pain at this time. Addendum entered by Sandeep Dunn R.N. 08/09/19 06:02: 0200: Pt dozing intermittently. Desats occasionally when mouth breathing. Encouraged him to breathe through his nose. Using incentive spirometer. 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 SCDs on. Altman catheter patent, with clear alina urine. PICC in place in rt upper arm. Pt answers questions appropriately, but slightly slow in response. He states he has no clue what day or date it is. He is oriented to person and place.
[2019-08-09] MEDS: PIPERACILLIN-TAZO 4.5 GM/100 ML FROZ.PIGGY IV ×4 (01:04→19:00)
[2019-08-09] MEDS: ALBUTEROL 2.5 MG/3 ML NEB (ADULT) INH ×2 (01:18→05:19)
[2019-08-09 05:53] LABS: Add Manual Diff / Slide Review NO; Basophils Absolute Auto 0 /uL (0-100); Basophils Percent Auto 0.5 % (0-2); Eosinophils Absolute Auto 0 /uL (0-450); Eosinophils Percent Auto 0.2 % (2-4); Hematocrit 37.2 % (41-53); Hemoglobin 12.2 g/dL (13.5-17.5); Lymphocytes Absolute Auto 1500 /uL (1100-4500); Lymphocytes Percent Auto 18.2 % (25-40); Mean Corpuscular HGB Conc 32.9 % (30-36); Mean Corpuscular Hemoglobin 30.2 PG (26-34); Mean Corpuscular Volume 91.7 fL (80-100); Monocytes Absolute Auto 500 /uL (0-900); Neutrophils Absolute Auto 6300 /uL (1500-7000); Neutrophils Percent Auto 75.1 % (50-75); Platelet Count 334 X10^3/uL (150-400); Red Blood Cell Count 4.05 X10^6/uL (4.5-5.9); Red Cell Distribution Width 16.9 % (11.6-14.8); White Blood Cell Count 8.4 X10^3/uL (4.5-11.0)
[2019-08-09 06:03] LABS: BUN Creatinine Ratio 29.1 (6-22); Blood Urea Nitrogen 16 mg/dL (9-20); Calcium 8.6 mg/dL (8.4-10.2); Carbon Dioxide 38 mmol/L (22-32); Chloride 97 mmol/L (98-107); Estimated Glomerular Filt Rate > 60.0 mL/min (>60); Glucose 119 mg/dL (80-110); HEMOLYSIS < 15 (0-50); Magnesium 2.2 mg/dL (1.6-2.3); Potassium 3.3 mmol/L (3.4-5.1); Sodium 139 mmol/L (137-145)
[2019-08-09 06:16] LABS: Procalcitonin 0.96 ng/mL (<0.5)
[2019-08-09] MEDS: MORPHINE 2 MG/ML INJ IV ×2 (06:35→19:00)
[2019-08-09] MEDS: ALBUTEROL/IPRATROPIUM 3 ML AMPUL INH ×4 (09:40→22:58)
[2019-08-09] MEDS: SODIUM CHLORIDE 0.9% FLUSH 10 ML IV ×2 (10:22→21:03)
[2019-08-09] MEDS: ENOXAPARIN 40 MG/0.4 ML SYRINGE SUBCUT (10:22)
[2019-08-09] MEDS: POTASSIUM CHLORIDE 40 MEQ in SODIUM CHLORIDE 0.9% 500 ML 130 ML IV (10:23)
--- NOTE | 2019-08-09 13:02 | ST.IPIE ---
Visit Care Team Role Provider Type James Mckenzie DO Primary Care Provider Physician Specialty: Family Practice Address: [address] [place] [address], [facility] Email: Anita Rojas DO Emergency Provider Physician Referring Provider Specialty: Emergency Medicine Address: [address] [place] [address] Email: [email or web address] Sylvia Bean MD Admit Provider Physician Attending Provider Specialty: Internal Medicine Address: [address] [place] [address], [facility] Email: [email or web address] Current Diagnoses Sepsis, unspecified organism (08/03/19) Past Medical History (Last Reviewed 08/03/19 @ 20:58 by LUCÍA Schmidt) Cataract (Chronic Medical 2015) Chicken pox (Resolved Medical 1949) Colon polyps (Resolved Medical 1999) CTS (carpal tunnel syndrome) (Chronic Medical) GI bleeding (Chronic Medical 2015) Hearing loss (Chronic Medical 2015) Hyperlipidemia (Chronic Medical) Hypothyroidism (Chronic Medical) Measles (Resolved Medical 1951) Mumps (Resolved Medical 1951) Skin cancer (Resolved Medical 2012) ST IP Initial Evaulation Report 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 Clinical Swallow Evaluation Start: 08/09/19 12:32 Freq: Status: Active Protocol: Document 08/09/19 12:33 EDILSON (Rec: 08/09/19 13:02 EDILSON [email or web address]) Clinical Swallow Evaluation Session Time Visit Start Time 11:45 Visit Stop Time 12:25 Total Visit Minutes 50 Referral Referring Physician Doug Pride DO Reason for Referral PNA, s/p extubation Setting Assessment Location Acute Care Visit Type Note Type Initial Evaluation Next Note Type Next Note Type Treatment Note Patient Information Identification Type Name,ID Card History Per MD report: Camron Burton is a 74-year-old male with history of rheumatoid arthritis on prednisone, hyperlipidemia, and hypothyroidism who presented with shortness of breath. He was admitted with acute respiratory failure and required intubation on HD#1 after failing noninvasive measures including heated high -flow and noninvasive positive -pressure ventilation. His respiratory status improved with diuresis and antibiotics and he was extubated today 03/17. Pt was made NPO with exception of ice chips pending ST swallow evaluation. Subjective Observations Pt was sitting up in chair awake, alert and with heated high flow nasal cannula. O2 sats at 95% at rest prior to oral intake. The pt denied swallow problems prior to hospital stay. Reported some coughing with ice chips and water since extubation. He also stated his throat has been sore at rest and with swallow since extubation. Evaluation Liquids Trialed Ice Chips,Thin Solids Trialed Puree,Dysphagia Mechanical, Dysphagia Advanced Administration Type Cup Single Sip,Straw,Self- Feeding Oral Impairment WFL Oral Strategies Upright at 90 degrees, Controlled Bite/Sip Size Oral Phase Comments Oral Peripheral Exam: Symmetrical features. Generalized weakness. Slow but adequate movements regarding ROM and coordination. The pt has natural dentition surrounding upper and lower partials. Good condition for age. Hyolaryngeal elevation and anterior excursion WNL via palpation. The pt was able to perform volitional swallow. Oral Phase: Appropriate oral acceptance with no anterior bolus loss. Slowed mastication , bolus prep and a/p propulsion. Suspect early posterior loss with thin liquids, resulting in cough and throat clearing. This resolved with use of chin tuck and verbal instructions to control the swallow timing. The pt was able to follow these directions and perform consistently with all subsequent trials. No abnormal oral residue was observed. Pharyngeal Impairment Mildly Impaired Pharyngeal Strategies Sitting Upright (90 deg),Chin Tuck,Small Bites and Sips Pharyngeal Phase Comments Mild throat clearing observed with ice chips and thin liquid from cup without use of chin tuck and occasionally with thin liquid from straw with and without chin tuck. The pt exhibited two episodes of delayed significant coughing prior to introduction of chin tuck strategy. With use of strategy, no overt s/sx of aspiration were observed with thin liquid from cup and all solid trials. The pt was able to self-feed, though exhibited slowed and somewhat effortful movements to bring utensil and cup to mouth. Appears to have some limited ROM in RUE. The pt was minimally verbal throughout the eval, but all responses were appropriate and the pt was able to follow verbal instructions. Written reminder for chin tuck with all swallows was placed on the pt's bedside table with his permission. Findings Dysphagia Type Mild oropharyngeal dysphagia Rehabilitation Potential Good Impressions Pt presents with mild oropharyngeal dysphagia likely secondary to intubation and generalized weakness. Occasional cough and frequent throat clearing was noted particularly with thin liquids and ice chips without use of chin tuck. Throat clearing was also observed occasionally with liquid from straw despite chin tuck. He did tolerate thin liquid from cup and all solid trials with no overt s/s of aspiration with chin tuck was employed. The pt was responsive to education and training and able to independently perform strategy . O2 sats remained 94-95% with oral trials. Pt was educated on results and recommendations and was in agreement of conservative initial diet to reserve energy and monitor airway protection . Diet Recommendations Liquids Order Thin Diet Order Dysphagia Mechanical Comments Meds as tolerated in carrier. Set-up assistance as needed. Additional Dietary Needs Single Sips,Controlled Sips,No Straws,Reminders to Use Strategies Aspiration Precautions Recommended Precautions Upright at 90 Degrees,Small Bites/Sips,Chin Tuck,Liquids from Cup Treatment Plan Placement Recommendations after Home,Home with Home Health, Discharge Home Care Appropriate for Therapy Yes Therapy Recommendations Ongoing assessment with advancement of diet as appropriate. Ongoing pt/family education and training of compensatory swallow strategies. Dysphagia Goals 1. The pt will perform safe swallow strategies independently to increase safety with oral intake. 2. The pt will tolerate least restrictive diet to meet his nutrition and hydration needs.
--- NOTE | 2019-08-09 13:13 | DIET.PN ---
Dietary Progress Note RD f/u as pt extubated yesterday successfully and passed SLT feeding trial to be assigned Dysphagia Mech soft/thin c chin tuck, small bites, and no straw. Pt reports being very hungry, was eating peaches and pudding during interview. Helped pt order late lunch tray of Mech soft/mashed potatoes and meatloaf c chocolate Ensure enlive. Pt likes Ensure. Pt was not tolerating TF while ventilated over the weekend r/t high residuals per nursing. Pt has lost 3kg in less than 1w (-4.7% unintentional r/t acute illness, severe acute PCM). Now that pt is safe to consume POs, will send high PRO diet to support PCM status. Upon admit, hospitalist suspected fluid overload contributed to respiratory failure, will adjust PRO supplementation if fluids to be restricted. HT: 182.8cm WT: 74.1kg (-4.7% in 1w, severe) BMI: 22.2 (low for age) Labs: K+ 3.3 L, Cr 0.55 L MNA: 14 normal nutrition Valentino: 19 Nutrition Diagnosis: Severe Acute PCM r/t NPO status while intubated for 5d aeb 4.7% unintentional wt loss in 1 w (severe), BMI 22.2 (severe for age), pt had high gastric residuals while on ventilator leading to interrupted feeding and reduced feeding rate. Interventions: 1. Recc ONS Enlive tid to support PCM Diet Order: Dysphagia-thin/mech soft EER: 2300kcal (30kcal/kg), 96g PRO (1.3g/kg PCM), 2.3 L fluids Monitoring/Evaluations: ONS tolerance, GI sx
--- NOTE | 2019-08-09 15:15 | PC.NURSE ---
Day Shift Note Pt up to chair 2 person assist, initially reported dizziness when sitting up at edge of bed, resolved quickly. Used FWW to pivot transfer to chair, steady on feet. Desaturated to the 70s with the transfer but recovered in less than a minute, denied feeling short of breath. Denies pain. Heater HFNC titrated down to FiO2 40% and 50L, SpO2 88-95% throughout shift. Goal SpO2 88-92% per MD. Oriented to self and intermittently to place. Calm and cooperative, participating in care. Call light within reach. Chair alarm on.
--- NOTE | 2019-08-09 18:46 | P.PN_ITS ---
Subjective Subjective Date Patient Seen: 08/09/19 Interval history: Camron Burton is a 74-year-old male with a past medical history significant for rheumatoid arthritis on prednisone, hyperlipidemia, pacemaker, tobacco dependence and hypothyroidism who presented with progressive worsening shortness of breath and found to have hypoxemic respiratory failure secondary to bilateral upper lobe pneumonia which failed NIPPV and subsequently required intubation. Patient was extubated on vent day 4 and is now titrating off of heated high flow. The patient is resting in bedside chair comfortably. The patient's mentation is clearing and he is no longer having hallucinations or delusions. He continues to lose track of time with intermittent confusion on timeline of events. His oxygenation is improving and he is slowly titrating down on heated high-flow. The patient is currently on heated high flow with a FiO2 of 0.4 and 50 L flow maintaining oxygen saturations in the low 90s. He occasionally desaturates to high 80's while talking but recovers quickly. He denies shortness of breath and cough. He reports a productive cough for 2 weeks prior to admission and prior to intubation. He has no complaints and denies headache, cough, shortness of breath, chest pain, abdominal pain, nausea, vomiting, fever, chills, dysuria, diarrhea or constipation. He is voiding via Altman catheter and eliminating without difficulty. He is up ambulating with assistance. Exam Vital Signs (past 8 hours): - 08/09/19 11:35 08/09/19 14:15 08/09/19 15:00 Temperature 98.4 F 98.5 F Pulse Rate 72 72 65 Respiratory Rate 21 20 20 Blood Pressure 137/73 139/76 Pulse Oximetry 97 92 94 08/09/19 16:10 Temperature 97.6 F Pulse Rate 70 Respiratory Rate 20 Blood Pressure 139/76 Pulse Oximetry Fraction of Inspired Oxygen 0.55 Oxygen Delivery Method Heated High Flow Oxygen Flow Rate 50 Narrative Exam Narrative: General: Eldelry gentleman sitting in bedside chair and in no acute distress, well-developed, well-nourished, appropriately interactive. HEENT: Normocephalic, atraumatic. External ears without defect. Pupils equal, round, and reactive to light. Anicteric sclerae, moist conjunctivae, and no lid lag. Oropharynx free of erythema and cobble stoning with moist mucosa. Neck: Supple with full range of motion. No jugular venous distension. No bruits. No lymphadenopathy or thyromegaly. Cardiovascular: Regular rate and rhythm without murmurs, rubs, or gallops appreciated. Pulmonary: Clear to auscultation bilaterally with scattered rhonchi. No crackles or wheezes. Normal respiratory effort with no use of accessory muscles. Abdomen: Soft, bowel sounds present, nontender, nondistended. No h epatosplenomegaly or masses appreciated. Extremities: No clubbing, cyanosis, or edema. Skin: Normal temperature, turgor, and texture; no rash, ulcers, or subcutaneous nodules appreciated. Neurological: Cranial nerves grossly intact. Psychiatric: Normal mood and affect. Alert and oriented to person and place. Delerium resolving with now only mild confusion. No hallucinations or delusions. Objective Labs Result Diagrams: 08/11/19 06:00 08/10/19 04:25 Labs: Laboratory Results - last 24 hr 08/09/19 08/09/19 08/09/19 05:00 05:00 05:00 WBC 8.4 RBC 4.05 L Hgb 12.2 L Hct 37.2 L MCV 91.7 MCH 30.2 MCHC 32.9 RDW 16.9 H Plt Count 334 Neut % (Auto) 75.1 H Lymph % (Auto) 18.2 L [place] % (Auto) 6.0 Eos % (Auto) 0.2 L Baso % (Auto) 0.5 Neut # (Auto) 6300 Lymph # (Auto) 1500 [place] # (Auto) 500 Eos # (Auto) 0 Baso # (Auto) 0 Sodium 139 Potassium 3.3 L Chloride 97 L Carbon Dioxide 38 H BUN 16 Creatinine 0.55 L Estimated GFR > 60.0 BUN/Creatinine Ratio 29.1 H Glucose 119 H Calcium 8.6 Magnesium 2.2 Procalcitonin 0.96 H Assessment & Plan Assessment & Plan narrative: Camron Burton is a 74-year-old male with a past medical history significant for rheumatoid arthritis on prednisone, hyperlipidemia, pacemaker, tobacco dependence and hypothyroidism who presented with progressive worsening shortness of breath and found to have hypoxemic respiratory failure secondary to bilateral upper lobe pneumonia which failed NIPPV and subsequently required intubation. Patient was extubated on vent day 4 and is now titrating off of heated high flow. 1. Acute hypoxemic respiratory failure, present on admission. Improving. -Chest x-ray demonstrated bilateral diffuse ill-defined opacities. -CTA chest demonstrated ground-glass attenuation throughout lungs with developing consolidation and posterior bilateral lower lobes. No PE. -Patient was hypoxemic with initial sats in the 70s and a respiratory alkalosis on admission. Patient was placed on BiPAP in the ED but further decompensated and went into respiratory distress requiring intubation on 08/03. The patient was diuresed for slight volume overload and then successful xtubated on 08/07 to heated high-flow. Continue to titrate off of heated high-flow as tolerated to maintain oxygen saturations 88-92%. Patient currently on heated high-flow with FiO2 0.40 and 50 L flow. -Continue respiratory therapy evaluation and treatment. Continue DuoNebs every 4 hours while awake and albuterol nebs every 2 hours as needed for shortness of 2. Acute bilateral multifocal bacterial pneumonia, present on admission. Resolving. -Chest x-ray demonstrated COPD with bilateral diffuse ill-defined opacities. -CTA chest demonstrated ground-glass attenuation throughout lungs with developing consolidation and posterior bilateral lower lobes. No PE. -Initial WBC 15.2 and procalcitonin 0.95. WBC trended down and normalized. Procalcitonin peaked at 6.71 and trending down now 0.96. Continue to monitor WBC and procalcitonin daily. -Ordered complete pneumonia workup including: Sputum culture has no growth to date. COVID-19 negative x2 and antibodies negative. Respiratory viral PCR negative. Blood cultures x2 negative. -Venous Doppler ultrasound of bilateral lower extremities negative for DVT. -Continue Zosyn 4.5 g every 6 hours. Discontinued vancomycin with dosing per pharmacist. Patient is immunocompromised and was severely ill therefore covered with broad-spectrum IV antibiotics for Gram-positive, Gram-negative, MRSA and anaerobes. 3. Acute sepsis, secondary to bacterial pneumonia, present on admission. [facility] ed. -Patient presented septic with organ dysfunction hypoxemic respiratory failure and hypotension which was fluid responsive and infectious source bilateral multifocal pneumonia. -Received early goal-directed therapy including: IV fluid resuscitation and broad-spectrum IV antibiotics. -Initial lactate 10.0 due to severe hypoxemia. Continued to monitor lactate until under 2.0. And improved after fluid resuscitation in the ED 4. Acute drug-induced hypotension, present on admission. Resolved. -Patient initially had mild hypotension due to sepsis and infection which was IV fluid responsive and resolved with treatment of pneumonia. The patient then had medication induced hypotension from high doses of sedation requiring brief amount of norepinephrine. 5. Acute demand ischemia with elevated troponin, present on admission. Resolved. -Secondary to sepsis and severe hypoxemia. -EKG demonstrated normal sinus rhythm without acute ischemic changes such as ST elevation or depression. -Troponin peaked at 0.069 and subsequently trended down. 6. Acute volume overload, not present on admission. Resolved. -Secondary to IV fluid resuscitation. -Limited echocardiogram demonstrated normal EF 60-65% and no significant valvular disease. In echocardiogram report it states that there is a pacemaker lead in the right ventricle and patient does not have a history of pacemaker and this is an error in the report. Previous echocardiogram did not demonstrate any systolic or diastolic dysfunction. -Received IV furosemide with good diuresis. 7. Acute hypokalemia, not present on admission. Resolved. -Secondary to diuresis and repleted with IV potassium chloride. -Continue to monitor potassium level and replete as necessary. 8. Acute severe protein calorie malnutrition, not present on admission. Active. -Secondary to NPO status while intubated for 5 days as evidence by 4.7% unint entional severe weight loss in week, BMI 22.2 (severe for age), patient had high gastric residuals while on ventilator leading to interrupted feeding and reduced feeding rate. -Consulted dietitian and we appreciate her time and recommendations. 9. Rheumatoid arthritis, chronic, present on admission. Stable. -Continue home prednisone 7.5 mg daily 10. Hypothyroidism, chronic, present on admission. Stable. -Continue home levothyroxine 50 mcg daily. 11. History of a right bundle branch block. 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 Chen and has had previous ischemic workup with cardiac stress test which was normal. Code status: FULL CODE DVT prophylaxis: Enoxaparin Disposition: Patient likely discharge in several days either to snf facility for continued rehabilitation or home with home health once acute hypoxemic respiratory failure has significantly improved/resolved. Quality VTE Deep Vein Thrombosis/Pulmonary Embolism Present on Admission: No
[2019-08-10] VITALS (14 sets, daily range): BP systolic 116–158; BP diastolic 64–86; PULSE 67–91; RESP 12–24; TEMP 36.6–37.1; O2SAT 89–97
[2019-08-10] MEDS: PIPERACILLIN-TAZO 4.5 GM/100 ML FROZ.PIGGY IV ×4 (01:30→19:04)
[2019-08-10 04:43] LABS: Add Manual Diff / Slide Review NO; Basophils Absolute Auto 200 /uL (0-100); Basophils Percent Auto 1.8 % (0-2); Eosinophils Absolute Auto 0 /uL (0-450); Eosinophils Percent Auto 0.5 % (2-4); Hematocrit 36.8 % (41-53); Hemoglobin 12.7 g/dL (13.5-17.5); Lymphocytes Absolute Auto 2100 /uL (1100-4500); Lymphocytes Percent Auto 22.7 % (25-40); Mean Corpuscular HGB Conc 34.6 % (30-36); Mean Corpuscular Hemoglobin 31.6 PG (26-34); Mean Corpuscular Volume 91.3 fL (80-100); Monocytes Absolute Auto 400 /uL (0-900); Monocytes Percent Auto 3.9 % (3-14); Neutrophils Absolute Auto 6500 /uL (1500-7000); Neutrophils Percent Auto 71.1 % (50-75); Platelet Count 351 X10^3/uL (150-400); Red Blood Cell Count 4.03 X10^6/uL (4.5-5.9); Red Cell Distribution Width 17.1 % (11.6-14.8); White Blood Cell Count 9.1 X10^3/uL (4.5-11.0)
[2019-08-10 04:52] LABS: BUN Creatinine Ratio 29.9 (6-22); Blood Urea Nitrogen 20 mg/dL (9-20); Carbon Dioxide 36 mmol/L (22-32); Chloride 102 mmol/L (98-107); Estimated Glomerular Filt Rate > 60.0 mL/min (>60); Glucose 140 mg/dL (80-110); HEMOLYSIS < 15 (0-50); Magnesium 2.4 mg/dL (1.6-2.3); Potassium 3.7 mmol/L (3.4-5.1); Sodium 142 mmol/L (137-145)
[2019-08-10 05:09] LABS: Procalcitonin 0.59 ng/mL (<0.5)
[2019-08-10] MEDS: LEVOTHYROXINE 50 MCG TABLET PO (06:07)
[2019-08-10] MEDS: ALBUTEROL/IPRATROPIUM 3 ML AMPUL INH ×5 (06:18→22:38)
--- NOTE | 2019-08-10 06:21 | PC.NURSE ---
Noc Note: Pt was up in chair at the start of the shift, went to bed at appox. 0130, 1PA with FWW. Pt tolerating FiO2 of 35% and 50L/min with sats of 91-93%. Occ moist rattling cough noted, Pt reports that he has moved some secretions and phlegm up and sipt it into tissues. LS have been diminished throughout with occ rhonchi that clears with coughing. Pt reports mild general aches he believes are from being in bed. Very mild forgetfulness noted.
[2019-08-10] MEDS: SODIUM CHLORIDE 0.9% FLUSH 10 ML IV ×2 (08:32→20:07)
[2019-08-10] MEDS: ENOXAPARIN 40 MG/0.4 ML SYRINGE SUBCUT (08:32)
[2019-08-10] MEDS: predniSONE 2.5 MG TABLET 7.5 MG PO (08:33)
--- NOTE | 2019-08-10 10:39 | CM.DPC ---
Addendum entered by Monica Franks R.N. 08/10/19 14:38: Reached out to patient's , Alyce. Discussed home health versus skilled, looking at P.T. recommendations. stated, its better for him to go home, he can have physical therapy at home. Asked her if she had any preference on home health agencies. Stated, he had home health years ago for wound care, but I can't remember which agency he used, I have no preference. Since [facility] is on calendar, will use this agency. Called [facility] and spoke to Samantha, and let her know that referral would be sent. Also let her know that patient is not yet discharged, could be here another couple of days. Faxed over face sheet, H&P, and latest prog note. Original Note: DCP Cont: Discussed patient during team rounds. Patient is eager to go home. Added P.T/O.T. orders per hospitalist, to see how he mobilizes with team. He may be switching to nasal cannula today. He is currently up in chair, cooperative with care. He is alert and oriented. P: DCP to continue to be available for any resources needed. Discussed home health during team rounds as an option. Will see how he does with P.T/O.T. Monica Franks RN/Production Line Mechanic
--- NOTE | 2019-08-10 11:08 | PM.PN.1 ---
Subjective Subjective Date Patient Seen: 08/10/19 Interval history: Camron Burton is a 74-year-old male with a past medical history significant for rheumatoid arthritis on prednisone, hyperlipidemia, pacemaker, tobacco dependence and hypothyroidism who presented with progressive worsening shortness of breath and found to have hypoxemic respiratory failure secondary to bilateral upper lobe pneumonia which failed NIPPV and subsequently required intubation. Patient was extubated on vent day 4 and is now titrating off of heated high flow. The patient is resting in bedside chair comfortably. The patient's oxygenation continues to improve and he is currently on 5 L supplemental oxygen via nasal cannula with oxygen saturation low 90s. The patient continues to have mild desaturation with activity and recovers quickly with rest. He denies shortness of breath. He reports since intermittent productive cough and feels as though his chest congestion is loosening and resolving. He is using incentive spirometer frequently and have added Acapella. He is highly motivated and eager to return home. He has no complaints and denies headache, cough, shortness of breath, chest pain, abdominal pain, nausea, vomiting, fever, chills, dysuria, diarrhea or constipation. Altman catheter has been removed. He is voiding and eliminating without difficulty. He is up ambulating with assistance. Exam Vital Signs (past 8 hours): - 08/10/19 15:25 08/10/19 19:09 08/10/19 20:00 Temperature 98.1 F 98.0 F Pulse Rate 75 73 Respiratory Rate 18 12 Blood Pressure 128/64 131/72 Pulse Oximetry 92 89 L 95 08/10/19 22:39 Temperature Pulse Rate 74 Respiratory Rate 16 Blood Pressure Pulse Oximetry Fraction of Inspired Oxygen 0.35 Oxygen Delivery Method Nasal Cannula Oxygen Flow Rate 5 Narrative Exam Narrative: General: Eldelry gentleman sitting in bedside chair and in no acute distress, well-developed, well-nourished, appropriately interactive. HEENT: Normocephalic, atraumatic. External ears without defect. Pupils equal, round, and reactive to light. Anicteric sclerae, moist conjunctivae, and no lid lag. Oropharynx free of erythema and cobble stoning with moist mucosa. Neck: Supple with full range of motion. No jugular venous distension. No lymphadenopathy or thyromegaly. Cardiovascular: Regular rate and rhythm without murmurs, rubs, or gallops appreciated. Pulmonary: Clear to auscultation bilaterally with occasional rhonchi. No crackles or wheezes. Normal respiratory effort with no use of accessory muscles. Abdomen: Soft, bowel sounds present, nontender, nondistended. No hepatosplenomegaly or masses appreciated. Extremities: No clubbing, cyanosis, or edema. Skin: Normal temperature, turgor, and texture; no rash, ulcers, or subcutaneous nodules appreciated. Neurological: Cranial nerves grossly intact. Psychiatric: Normal mood and affect. Alert and oriented to person and place. Delerium resolved. Objective Labs Result Diagrams: 08/11/19 06:00 08/11/19 06:50 Labs: Laboratory Results - last 24 hr 08/10/19 08/10/19 08/10/19 04:25 04:25 04:25 WBC 9.1 RBC 4.03 L Hgb 12.7 L Hct 36.8 L MCV 91.3 MCH 31.6 MCHC 34.6 RDW 17.1 H Plt Count 351 Neut % (Auto) 71.1 Lymph % (Auto) 22.7 L [place] % (Auto) 3.9 Eos % (Auto) 0.5 L Baso % (Auto) 1.8 Neut # (Auto) 6500 Lymph # (Auto) 2100 [place] # (Auto) 400 Eos # (Auto) 0 Baso # (Auto) 200 H Sodium 142 Potassium 3.7 Chloride 102 Carbon Dioxide 36 H BUN 20 Creatinine 0.67 Estimated GFR > 60.0 BUN/Creatinine Ratio 29.9 H Glucose 140 H Calcium 9.0 Magnesium 2.4 H Procalcitonin 0.59 H Assessment & Plan Assessment & Plan narrative: Camron Burton is a 74-year-old male with a past medical history significant for rheumatoid arthritis on prednisone, hyperlipidemia, pacemaker, tobacco dependence and hypothyroidism who presented with progressive worsening shortness of breath and found to have hypoxemic respiratory failure secondary to bilateral upper lobe pneumonia which failed NIPPV and subsequently required intubation. Patient was extubated on vent day 4 and is now titrating off of heated high flow. 1. Acute hypoxemic respiratory failure, present on admission. Resolving. -Chest x-ray demonstrated COPD and bilateral diffuse ill-defined opacities. -CTA chest demonstrated ground-glass attenuation throughout lungs with developing consolidation and posterior bilateral lower lobes. No PE. -Patient was hypoxemic with initial sats in the 70s and a respiratory alkalosis on admission. Patient was placed on BiPAP in the ED but further decompensated and went into respiratory distress requiring intubation on 08/03. The patient was diuresed for slight volume overload and then successful xtubated on 08/07 to heated high-flow. Continue to titrate off of heated high-flow as tolerated to maintain oxygen saturations 88-92%. Patient currently on heated high-flow with FiO2 0.40 and 50 L flow. -Continue respiratory therapy evaluation and treatment. Continue DuoNebs every 4 hours while awake and albuterol nebs every 2 hours as needed for shortness or wheezing. Continue incentive spirometer and Acapella frequently while awake with goal 10x an hour. 2. Acute bilateral multifocal bacterial pneumonia, present on admission. Resolving. -Chest x-ray demonstrated COPD with bilateral diffuse ill-defined opacities. -CTA chest demonstrated ground-glass attenuation throughout lungs with developing consolidation and posterior bilateral lower lobes. No PE. -Initial WBC 15.2 and procalcitonin 0.95. WBC trended down and normalized. Procalcitonin peaked at 6.71 and trending down now 0.59. Continue to monitor WBC and procalcitonin daily. -Ordered complete pneumonia workup including: Sputum culture has no growth to date. COVID-19 negative x2 and antibodies negative. Respiratory viral PCR negative. Blood cultures x2 negative. -Venous Doppler ultrasound of bilateral lower extremities negative for DVT. -Continue Zosyn 4.5 g every 6 hours. Discontinued vancomycin with dosing per pharmacist as MRSA screen and sputum and blood cultures were negative. Patient is immunocompromised and was severely ill therefore covered with broad-spectrum IV antibiotics for Gram-positive, Gram-negative, MRSA and anaerobes. 3. Acute sepsis, secondary to bacterial pneumonia, present on admission. Resolved. -Patient presented septic with organ dysfunction hypoxemic respiratory failure and hypotension which was fluid responsive and infectious source bilateral multifocal pneumonia. -Received early goal-directed therapy including: IV fluid resuscitation and broad-spectrum IV antibiotics. -Initial lactate 10.0 due to severe hypoxemia. Continued to monitor lactate until under 2.0. And improved after fluid resuscitation in the ED 4. Acute drug-induced hypotension, present on admission. Resolved. -Patient initially had mild hypotension due to sepsis and infection which was IV fluid responsive and resolved with treatment of pneumonia. The patient then had medication induced hypotension from high doses of sedation requiring brief amount of norepinephrine. 5. Acute demand ischemia with elevated troponin, present on admission. Resolved. -Secondary to sepsis and severe hypoxemia. -EKG demonstrated normal sinus rhythm without acute ischemic changes such as ST elevation or depression. -Troponin peaked at 0.069 and subsequently trended down. 6. Acute volume overload, not present on admission. Resolved. -Secondary to IV fluid resuscitation. -Limited echocardiogram demonstrated normal EF 60-65% and no significant valvular disease. In echocardiogram report it states that there is a pacemaker lead in the right ventricle and patient does not have a history of pacemaker and this is an error in the report. Previous echocardiogram did not demonstrate any systolic or diastolic dysfunction. -Received IV furosemide with good diuresis. 7. Acute hypokalemia, not present on admission. Resolved. -Secondary to diuresis and repleted with IV potassium chloride. -Continue to monitor potassium level and replete as necessary. 8. Acute severe protein calorie malnutrition, not present on admission. Active. -Secondary to NPO status while intubated for 5 days as evidence by 4.7% unintentional severe weight loss in week, BMI 22.2 (severe for age), patient had high gastric residuals while on ventilator leading to interrupted feeding and reduced feeding rate. -Consulted dietitian and we appreciate her time and recommendations. 9. Rheumatoid arthritis, chronic, present on admission. Stable. -Continue home prednisone 7.5 mg daily 10. Hypothyroidism, chronic, present on admission. Stable. -Continue home levothyroxine 50 mcg daily. 11. History of a right bundle branch block. 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 Chen and has had previous ischemic workup with cardiac stress test which was normal. 12. Tobacco dependence, chronic, present on admission. Stable. -Patient reports smoking 10 cigarettes a day up until hospitalization. Patient has no desire to continue smoking. -Counseled patient extensively on smoking cessation. 13. COPD, chronic, present on admission. Stable. -Patient does not have formal diagnosis of COPD, however, patient has been a long-time smoker and has evidence of COPD on imaging. -Recommend referral to pulmonology for pulmonary function testing in 2-3 months after he has recovered from acute illness. -Plan to discharge patient on muscarinic inhaler to prevent COPD exacerbations and albuterol as needed for shortness of breath and wheezing. Code status: FULL CODE DVT prophylaxis: Enoxaparin Disposition: Patient likely discharge in 1-2 days e likely home with home health once acute hypoxemic respiratory failure has significantly improved/resolved. Quality VTE Deep Vein Thrombosis/Pulmonary Embolism Present on Admission: No
--- NOTE | 2019-08-10 11:59 | PT.IIE ---
Current Diagnoses Sepsis, unspecified organism (08/03/19) Surgical History (Last Reviewed 08/03/19 @ 20:58 by LUCÍA Schmidt) Anesthesia (Resolved) History of appendectomy (Resolved 2011) History of tonsillectomy (Resolved 1954) Medical History (Last Reviewed 08/03/19 @ 20:58 by LUCÍA Schmidt) Cataract (Chronic 2015) Chicken pox (Resolved 1949) Colon polyps (Resolved 1999) CTS (carpal tunnel syndrome) (Chronic) GI bleeding (Chronic 2016) Hearing loss (Chronic 2016) Hyperlipidemia (Chronic) Hypothyroidism (Chronic) Measles (Resolved 1951) Mumps (Resolved 1951) Skin cancer (Resolved 2012) Physical Therapy Inpatient Evaluation/Re-Eval M1 PT/OT-IP Prior Functional Status Start: 08/10/19 13:31 Freq: NEEDED Status: Active Protocol: Document 08/10/19 11:59 AB (Rec: 08/10/19 13:50 AB [id number]) Medical Review Prior Functional Status Medical History Reviewed Yes Communication able to make needs known Mobility and Gait pt stated that he is independent with all mobilities and ambulation without AD Social History Household Members spouse Living Arrangements House Number of Floors (Floors) One Floor Number of Stairs To Enter/Railing? no steps to enter Home Environment Standard Height Toilet,Walk in Shower Home Equipment Grab Bars Near Toilet,Grab Bars In Shower M2 PT-IP Current Condition Start: 08/10/19 13:31 Freq: NEEDED Status: Active Protocol: Document 08/10/19 11:59 AB (Rec: 08/10/19 13:50 AB [id number]) Physical Therapy Current Condition Current Condition Evaluation Date 08/10/19 Treatment Diagnosis acute respiratory failure; PNA ; difficulty in walking Onset Date 08/03/19 Precautions Other Precautions O2 sat M3 PT-IP Subjective Start: 08/10/19 13:31 Freq: NEEDED Status: Active Protocol: Document 08/10/19 11:59 AB (Rec: 08/10/19 13:50 AB [id number]) Subjective Physical Therapy Visit Type Type Initial Evaluation Visit Start Time 11:59 Visit Stop Time 12:22 Total Visit Minutes [address] REPAIRER Visits 0 Physical Therapy Visit Comments Patient Comments pt agreeable to get out of bed M4 PT-IP Mobility and Gait Start: 08/10/19 13:31 Freq: NEEDED Status: Active Protocol: Document 08/10/19 11:59 AB (Rec: 08/10/19 13:50 AB [id number]) PT-Bed Mobility Assessment Supine to Sit Supine to Sit Standby Assistance PT-Transfer Assessment Sit to and From Stand Sit to and from Stand Minimal Assistance,1 Person Assistance,Use of Upper Extremities Equipment Transfer Assistive Device Gait Belt,Front Wheeled Walker Orthotic/Prosthetic Devices or Brace: No Transfers Transfer Destination Chair Transfer Technique Stand Step Pivot Transfer Ability Level of Assist Contact Guard Assistance,1 Person Assistance,Use of Upper Extremities Comments Mobility Comments pt on high flow O2. O2 sat at rest supine: 90%. completed supine to sit SBA. O2 sat decreased to 87%. instructed to do deep breathing and took >5 min to recover to 89%. completed sit to stand CGA to min A and completed step transfer using FWW CGA. O2 sat decreased to ~ 82-84% and required >5 min to recover back to 88-89%. Left pt with OT. informed nurse regarding pt's mobility and O2 sat. PT-Balance Assessment Sitting Balance and Reactions Static Sitting Balance Ability Good Dynamic Sitting Balance Ability Good Standing Balance and Reactions Static Standing Balance Ability Fair Dynamic Standing Balance Ability Fair Device Used FWW M5 PT-IP Objective Assessments Start: 08/10/19 13:31 Freq: NEEDED Status: Active Protocol: Document 08/10/19 11:59 AB (Rec: 08/10/19 13:50 AB [id number]) Orientation Orientation/Cognition Level of Alertness Alert Orientation Name,Place,Situation Language Function Ability No Deficits Noted Safety Awareness Decreased Safety Awareness Gross Range of Motion Lower Extremity ROM Assessment Within Functional Limits Strength Lower Extremity Strength Assessment Within Functional Limits Muscle Tone Muscle Tone WNL Yes M6 PT-IP Treatment Start: 08/10/19 13:31 Freq: NEEDED Status: Active Protocol: Document 08/10/19 11:59 AB (Rec: 08/10/19 13:50 AB [id number]) Physical Therapy Treatment Education Education Provided Safety M7 PT-IP Assessment and Plan Start: 08/10/19 13:31 Freq: NEEDED Status: Active Protocol: Document 08/10/19 11:59 AB (Rec: 08/10/19 13:50 AB [id number]) PT Summary Assessment and Plan Potential Rehabilitation Potential Good Status of Condition at Evaluation Evolving Summary Impairments Pain,ROM,Strength,Balance, Coordination,Sensation,Tone, Cognition,Bed Mobility, Transfers,Gait,Activity Tolerance Assessment Summary pt required CGA to min A with mobility and unable to tolerate much with decrease O2 sat to 82% with bed mobility and transfers. d/c plan depending on progress but pt at this time will require SNF to improve overall strength, activity tolerance and functional mobility. Goals Bed Mobility Goal Independent Transfer Goal Independent,Front Wheeled Walker Gait Goal Independent,Front Wheel Walker Gait Distance 50 Other Goals improve ambulation without AD 250 ft SBA Days to Meet Goals 10 Frequency of Treatment Frequency Of Treatment Once a Day Treatment Plan Physical Therapy Treatment Plan Bed Mobility Training,Transfer Training,Gait Training, Therapeutic Exercise,Balance Retraining,Discharge Planning, Hot or Cold Pack,Neuromuscular Re-ed,Coordination Retraining ,Manual Therapy Recommendations To Nursing Amount of Assist Needed 1 Person Assist Discharge Recommendations PT Discharge Recommendations Home with Assistance,Home Health,SNF Rehab Other Discharge Recommendations depending on progress: SNF vs home with assist and HHPT Equipment Needed for Home Before FWW if not safe without AD Discharge Transportation Needs at Discharge Private Vehicle
--- NOTE | 2019-08-10 12:24 | OT.IP.EVAL ---
Current Diagnoses Sepsis, unspecified organism (08/03/19) Past Medical History (Last Reviewed 08/03/19 @ 20:58 by LUCÍA Schmidt) Cataract (Chronic 2015) Chicken pox (Resolved 1949) Colon polyps (Resolved 1999) CTS (carpal tunnel syndrome) (Chronic) GI bleeding (Chronic 2016) Hearing loss (Chronic 2016) Hyperlipidemia (Chronic) Hypothyroidism (Chronic) Measles (Resolved 1951) Mumps (Resolved 1951) Skin cancer (Resolved 2012) Surgical History (Last Reviewed 08/03/19 @ 20:58 by LUCÍA Schmidt) Anesthesia (Resolved) History of appendectomy (Resolved 2011) History of tonsillectomy (Resolved 1954) Occupational Therapy Inpatient Evaluation/Re-Eval M1 PT/OT-IP Prior Functional Status Start: 08/10/19 13:31 Freq: NEEDED Status: Active Protocol: Document 08/10/19 11:59 AB (Rec: 08/10/19 13:50 AB [id number]) Medical Review Prior Functional Status Medical History Reviewed Yes Communication able to make needs known Mobility and Gait pt stated that he is independent with all mobilities and ambulation without AD Social History Household Members spouse Living Arrangements House Number of Floors (Floors) One Floor Number of Stairs To Enter/Railing? no steps to enter Home Environment Standard Height Toilet,Walk in Shower Home Equipment Grab Bars Near Toilet,Grab Bars In Shower M2 OT-IP Current Condition Start: 08/10/19 14:40 Freq: Status: Active Protocol: Document 08/10/19 14:41 [facility] (Rec: 08/10/19 15:01 [facility] [id number]) Occupational Therapy Current Condition Current Condition Evaluation Date 08/10/19 Treatment Diagnosis Acute respirtory Failure, Bilateral PNA Diagnosis Onset Date 08/03/19 Weight Bearing Status Weight Bearing Status Weight Bear as Tolerated M3 OT- IP Subjective and Pain Start: 08/10/19 14:40 Freq: Status: Active Protocol: Document 08/10/19 14:41 [facility] (Rec: 08/10/19 15:01 [facility] [id number]) OT- Subjective Occupational Therapy Visit Type Type Initial Evaluation Visit Start Time 11:59 Visit Stop Time 12:24 Total Visit Minutes 25 Occupational Therapy Visit Comments Patient Comments Pt agreeable to get out of bed , Pt also present during OT/ PT eval due to limited endurance and decrease in O2 sats. Patient/Caregiver Goals To go home. OT Pain Assessment Pain When Pain Assessed At Rest Pain Present Pain Present Denied Pain M4 OT- IP ADL's Start: 08/10/19 14:40 Freq: Status: Active Protocol: Document 08/10/19 14:41 [facility] (Rec: 08/10/19 15:01 [facility] [id number]) OT [id number]-Udmjrdd General Evaluation Self-Feeding Ability Independent Comments OT Self-Feeding Comments Pt able to follow swallowing suggestions during eating lunch. OT ADL-Grooming Comments OT Grooming Comments Not at this time. OT ADL-Dressing Comments OT Dressing Comments Not performed. OT ADL-Toileting Comments OT Toileting Comments Not performed. OT ADL-Bathing Comments OT Bathing Comments Not performed. M5 OT- IP IADL's Start: 08/10/19 14:40 Freq: Status: Active Protocol: Document 08/10/19 14:41 [facility] (Rec: 08/10/19 15:01 [facility] [id number]) OT-Instrumental Activities of Daily Living Medication Management Medication Management No Deficits Identified Money Management Money Management Comments Pt's pays the bills. M6 OT- IP Functional Cognition Start: 08/10/19 14:40 Freq: Status: Active Protocol: Document 08/10/19 14:41 [facility] (Rec: 08/10/19 15:01 [facility] [id number]) Cognitive Factors Limiting Selfcare Function Cognitive Ability Level of Alertness Alert Patient Orientation Name,Place,Situation Attention Span Ability Capable of Focused Attention, Capable of Sustained Attention Ability to Follow Commands Able to Follow Multi-Step Commands Safety Awareness Underestimates Need for Assistance Cognitive Comments Cognitive Assessment Comments Pt able to follow multiple directions and just a little impulsive to get up. OT- Vision and Hearing OT- Hearing Assessment OT- Hearing Assessment WFL OT- Vision Assessment Visual Acuity WFL,Glasses For Reading M7 OT- IP Mobility and Balance Start: 08/10/19 14:40 Freq: Status: Active Protocol: Document 08/10/19 14:41 [facility] (Rec: 08/10/19 15:01 [facility] [id number]) OT- Bed Mobility Assessment Rolling Level of Assistance Standby Assistance Supine to Sit Supine to Sit Assist Standby Assistance OT-Transfer Assessment Sit to and From Stand Sit to and from Stand Minimal Assistance Transfers Transfer Ability Contact Guard Assistance Technique Transfer Destination Bed,Chair Transfer Technique Stand Step Pivot Devices Transfer Assistive Devices Gait Belt,Front Wheeled Walker Comments Mobility Comments SBA from supine to sit, KARRIE to stand with FWW and needing assist for all tubes/lines. CGA to transfer to recliner. Pt's O2 started at 90% and then decreased to 82% and then back to 89% at the end of the session. Pt's O2 drops even after talking and also after doing spirometer. OT- Balance Assessment Sitting Balance and Reactions Static Sitting Balance Ability Normal Standing Balance and Reactions Static Standing Balance Ability Fair M8 OT- IP Objective Assessments Start: 08/10/19 14:40 Freq: Status: Active Protocol: Document 08/10/19 14:41 [facility] (Rec: 08/10/19 15:01 [facility] [id number]) OT Gross Range of Motion Upper Extremity Range of Motion Assessment Within Functional Limits OT Strength Upper Extremity Strength Assessment Within Functional Limits Comments Strength Comments BUE strength 5/5. OT-Muscle Tone Assessment Muscle Tone WNL Yes M9 OT- IP Assessment and Plan Start: 08/10/19 14:40 Freq: Status: Active Protocol: Document 08/10/19 14:41 [facility] (Rec: 08/10/19 15:01 [facility] [id number]) OT Summary Assessment and Plan Potential Rehabilitation Potential Good Analytic Complexity at Evaluation Low Summary OT Impairments Balance,Functional Mobility, Self-Feeding,Grooming,Dressing ,Toileting,Bathing,Toilet Transfers,Shower Transfers, Activity Tolerance Progress Towards Goals Slow Progress due to Medical Issues,Slow Progress due to Activity Tolerance Assessment Summary Pt low complexity and main barrier are decreased activity tolerance and now needing hi- flow O2 at this time sats drop to 82% after minimal activity . Pending medical status and progress, pt may benefit from short skilled rehab versus home with home health. Goals Self-Feeding Goal Independent Grooming Goal Independent Dressing Goal Independent Toileting Goal Independent Bathing Goal Independent Toilet Transfer Goal Independent Shower Transfer Goal Independent Patient/Caregiver Education Goal Caregiver Independent Assisting Patient Days to Meet Goals 10 Frequency of Treatment Frequency Of Treatment Once a Day Treatment Plan OT Treatment Plan ADL Training,Functional Mobility,Patient/Family Education,Discharge Planning Discharge Recommendations OT Discharge Recommendations Home with Assistance,Home Health,SNF Rehab Home Equipment Needs Shower chair, FWW Transportation Needs at Discharge Private Vehicle
--- NOTE | 2019-08-10 14:50 | PC.NURSE ---
Addendum entered by Rocio Rodriguez R.N. 08/10/19 15:02: , Alyce, updated via phone. Original Note: Day Shift Note Pt alert and oriented x3, mentation much improved from yesterday. Able to participate with care and is motivated to go back home. Oxygen sats 89-95% at rest while on 5L NC. Titrated down from heated HFNC 35% FiO2 and 50L this shift. Denies pain, denies any shortness of breath. Up to chair for meals and remained up in chair most of shift, minimal 1 person assist with FWW. Desaturates to low 80s with activity but recovers quickly. Call light within reach. Bed/chair alarm on.
--- NOTE | 2019-08-10 15:22 | ST.IPDYTX ---
Visit Care Team Role Provider Type James Mckenzie DO Primary Care Provider Physician Specialty: Family Practice Address: [address] [place] [address], [id number] Email: Anita Rojas DO Emergency Provider Physician Referring Provider Specialty: Emergency Medicine Address: [address] [place] [address] Email: [email or web address] [email or web address] Provider Physician Attending Provider Specialty: Internal Medicine Address: [address] [place] [address], [id number] Email: [email or web address] MACHINE [email or web address] Dysphagia Treatment SLICER MACHINE OPERATOR Dysphagia Treatment Start: 08/09/19 12:32 Freq: Status: Active Protocol: Document 08/10/19 14:44 LL (Rec: 08/10/19 15:22 LL [id number]) Dysphagia Treatment Session Time Visit Start Time 14:10 Visit Stop Time 14:35 Total Visit Minutes 25 Setting Assessment Location Acute Care Visit Type Note Type Treatment Note Next Note Type Next Note Type Treatment Note Patient Information Identification Type Name,ID Wristband Subjective Observations Per MD report: Camron Burton is a 74-year-old male with history of rheumatoid arthritis on prednisone, hyperlipidemia, and hypothyroidism who presented with shortness of breath. He was admitted with acute respiratory failure and required intubation on HD#1 after failing noninvasive measures including heated high -flow and noninvasive positive -pressure ventilation. His respiratory status improved with diuresis and antibiotics and he was extubated today 03/17. Pt was made NPO with exception of ice chips pending ST swallow evaluation. Subjective Observations: Patient was sitting up in chair awake, alert, and with nasal cannula (5 liters). Patient able to recall recommended swallow strategies from yesterday's swallow evaluation. Patient agreeable to participate in various PO trials to advance diet. Treatment Liquids Trialed Thin Solids Trialed Dysphagia Mechanical, Mechanical Soft,Regular Administration Type Cup Single Sip,Controlled Cup Sip,Straw,Self-Feeding Oral Strategies Upright at 90 degrees, Controlled Bite/Sip Size Pharyngeal Strategies Sitting Upright (90 deg),Chin Tuck,Small Bites and Sips Treatment Activities Patient independently recalled and demonstrated use of compensatory swallow strategies (e.g., small bites/ sips, chin tuck). Written reminder for chin tuck is still on patient's table. Thin water by straw and cup sip resulted in immediate throat clearing and cough. This resolved with use of chin tuck , small sip, and verbal cue to control the swallow timing. Trials of dysphagia mechanical , mechanical soft, and regular texture without use of chin tuck resulted in no overt s/sx of aspiration. SLICER MACHINE OPERATOR noted increased mastication time with regular texture (chan cracker). O2 sats remained 92- 93% with oral trials. Recommend that patient's diet advance to mechanical soft texture and thin liquids with use of small bites/sips and chin tuck with thin liquids to improve protection of airway and reduce risk of aspiration. Patient was educated on results and diet recommendations. Patient verbalized understanding and agreement of continuing conservative diet to reserve energy and observe airway protection. SLICER MACHINE OPERATOR updated diet recommendation handout (green sheet above patient's bed), wrote updated diet order on patient's board, and informed nursing and Dr. Hill of diet upgrade. Assessment Patient Response to Treatment Good Rehab Potential Good Assessment of Improvement Patient continues to present with mild oropharyngeal phase dysphagia likely secondary to intubation and generalized weakness. Patient continues to intermittently throat clear and cough with thin liquids without use of small sips and chin tuck. Patient exhibited WFL swallowing abilities with dysphagia mechanical, mechanical soft, and regular texture trials without use of chin tuck. Nursing reported that patient has tolerated diet and takes medication whole with water with use of chin tuck. * Will continue to follow for ongoing assessment with advancement of diet and training/education with compensatory swallow strategies throughout patient' s hospital stay. Diet Recommendations Recommendations Upgrade Diet Order Liquids Order Thin Diet Order Mechanical Soft Medication Recommendations As Tolerated Additional Dietary Needs Single Sips,Controlled Sips,No Straws,Reminders to Use Strategies Aspiration Precautions Recommended Precautions Upright at 90 Degrees,Small Bites/Sips,Chin Tuck,Liquids from Cup Treatment Plan Placement Recommendation after Discharge Home,Home with Home Health, Home Care Appropriate for Continued Therapy Yes Therapy Recommendations Continue ongoing assessment with advancement of diet as appropriate. Continue ongoing pt/family education and training of compensatory swallow strategies. Dysphagia Goals 1. The patient will perform safe swallow strategies independently to increase safety with oral intake. 2. The patient will tolerate least restrictive diet to meet his nutrition and hydration needs.
--- NOTE | 2019-08-10 18:07 | PC.NURSE ---
Pt alert and oriented, sitting up in recliner and is a 1 person assist with a walker to the bed. Altman was removed during dayshift and pt has voided during my shift. O2 is 5L NC and pt is saturating between 89-95% showing no signs of distress. He denies pain or discomfort and is looking forward to going home as soon as possible. Bed low and locked, call light within reach, will continue to monitor.
--- NOTE | 2019-08-10 19:14 | PC.NURSE ---
1815: Report received from NEIL GARCIA. 1900: Pt alert/oriented, denies pain. PICC line flushed and IV ABX infusion started. RT in room for scheduled breathing treatment. Pt voided 175ml via urinal. Sitting up at bedside/bed alarm on. Call light w/in reach and denies further needs.
[2019-08-10] MEDS: SIMVASTATIN 10 MG TABLET PO (20:07)
[2019-08-11] VITALS (8 sets, daily range): BP systolic 117–158; BP diastolic 66–86; PULSE 65–72; RESP 18–22; TEMP 36.7–37.2; O2SAT 90–98
[2019-08-11] MEDS: PIPERACILLIN-TAZO 4.5 GM/100 ML FROZ.PIGGY IV ×4 (01:02→18:40)
[2019-08-11 06:08] LABS: Add Manual Diff / Slide Review NO; Basophils Absolute Auto 100 /uL (0-100); Basophils Percent Auto 1.5 % (0-2); Eosinophils Absolute Auto 100 /uL (0-450); Eosinophils Percent Auto 1.3 % (2-4); Hematocrit 35.3 % (41-53); Hemoglobin 11.8 g/dL (13.5-17.5); Lymphocytes Absolute Auto 2000 /uL (1100-4500); Lymphocytes Percent Auto 21.9 % (25-40); Mean Corpuscular HGB Conc 33.5 % (30-36); Mean Corpuscular Hemoglobin 30.6 PG (26-34); Mean Corpuscular Volume 91.3 fL (80-100); Monocytes Absolute Auto 400 /uL (0-900); Monocytes Percent Auto 4.4 % (3-14); Neutrophils Absolute Auto 6500 /uL (1500-7000); Neutrophils Percent Auto 70.9 % (50-75); Platelet Count 328 X10^3/uL (150-400); Red Blood Cell Count 3.86 X10^6/uL (4.5-5.9); Red Cell Distribution Width 17.3 % (11.6-14.8); White Blood Cell Count 9.1 X10^3/uL (4.5-11.0)
[2019-08-11] MEDS: ALBUTEROL/IPRATROPIUM 3 ML AMPUL INH ×2 (06:12→10:09)
[2019-08-11] MEDS: LEVOTHYROXINE 50 MCG TABLET PO (06:27)
[2019-08-11 06:37] LABS: Procalcitonin 0.21 ng/mL (<0.5)
--- NOTE | 2019-08-11 06:42 | PC.NURSE ---
Noc Note: Pt has been awake for most of the shift. Up to the bedside to void in urinal and up to the BSC with 1PA. Pt on 5L NC sating 91-95% at rest and dipping to as low as 81% with activity/transfers. Pt denies pain and is moving independently in the bed.
[2019-08-11 07:07] LABS: Alanine Aminotransferase 89 IU/L (<50); Albumin 3.2 g/dL (3.5-5.0); Albumin Globulin Ratio 0.8 (1.0-2.8); Alkaline Phosphatase 189 U/L (38-126); Aspartate Aminotransferase 104 IU/L (17-59); BUN Creatinine Ratio 20.8 (6-22); Bilirubin Total 0.8 mg/dL (0.2-1.3); Blood Urea Nitrogen 15 mg/dL (9-20); Calcium 8.9 mg/dL (8.4-10.2); Carbon Dioxide 35 mmol/L (22-32); Chloride 101 mmol/L (98-107); Estimated Glomerular Filt Rate > 60.0 mL/min (>60); Glucose 127 mg/dL (80-110); HEMOLYSIS < 15 (0-50); Magnesium 2.1 mg/dL (1.6-2.3); Potassium 3.3 mmol/L (3.4-5.1); Sodium 140 mmol/L (137-145); Total Protein 7.2 g/dL (6.3-8.2)
[2019-08-11] MEDS: POTASSIUM CHLORIDE 60 MEQ in SODIUM CHLORIDE 0.9% 500 ML 88.333 ML IV (09:15)
[2019-08-11] MEDS: SODIUM CHLORIDE 0.9% FLUSH 10 ML IV ×2 (09:15→20:49)
[2019-08-11] MEDS: predniSONE 2.5 MG TABLET 7.5 MG PO (09:15)
[2019-08-11] MEDS: ENOXAPARIN 40 MG/0.4 ML SYRINGE SUBCUT (09:17)
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
--- NOTE | 2019-08-11 11:05 | PT.IPTN ---
Addendum entered and electronically signed by Joann Golden PTA 08/11/19 12:43: GROUNDS SUPERVISOR called patient's , permission granted from patient, to provide progress with therapy. Pt improving O2 saturation with decreased supplimental O2 at rest but requires increased liters during mobility. Upon discussed with Dr Hill, able to increase liters given to assist safety during mobility and if needed might send home with patient when medically stable. Pt's stated tomorrow at 11am would be ok if is doing well to come in to work with therapy and reassured her that staff would be helping set up home supplimental O2 if required/ needed. Original Note: Current Diagnoses Sepsis, unspecified organism (08/03/19) Physical Therapy Treatment Note M2 PT-IP Current Condition Start: 08/10/19 13:31 Freq: NEEDED Status: Active Protocol: Document 08/10/19 11:59 AB (Rec: 08/10/19 13:50 AB [id number]) Physical Therapy Current Condition Current Condition Evaluation Date 08/10/19 Treatment Diagnosis acute respiratory failure; PNA ; difficulty in walking Onset Date 08/03/19 Precautions Other Precautions O2 sat M3 PT-IP Subjective Start: 08/10/19 13:31 Freq: NEEDED Status: Active Protocol: Document 08/11/19 10:25 SP (Rec: 08/11/19 12:22 SP [id number]) Subjective Physical Therapy Visit Type Type Treatment Note Visit Start Time 10:25 Visit Stop Time 11:05 Total Visit Minutes [address] Hill was in room when arrived, practical nursing instructor and nurse changed patient onto portable heart monitor and O2 tank for therapy treatment. Number of GROUNDS SUPERVISOR Visits 1 Physical Therapy Visit Comments Patient Comments pt agreeable to get out of bed Patient Goals Return home with with home health services. M4 PT-IP Mobility and Gait Start: 08/10/19 13:31 Freq: NEEDED Status: Active Protocol: Document 08/11/19 10:25 SP (Rec: 08/11/19 12:22 SP [id number]) PT-Transfer Assessment Sit to and From Stand Sit to and from Stand Contact Guard Assistance,Use of Upper Extremities Equipment Transfer Assistive Device None,Gait Belt,Front Wheeled Walker Orthotic/Prosthetic Devices or Brace: No Transfers Transfer Destination Chair,Toilet Transfer Technique pt ambulated with FWW and CGA no AD. Transfer Ability Level of Assist Contact Guard Assistance,Use of Upper Extremities Comments Mobility Comments Pt seated in chair with Dr Hill in room when arrived. Dr Hill instructed wanting patient to mobilize during treatment and able to increase supplimental O2 flow as needed to assist maintain safe saturation. Pt vitals seated rest: BP 118/84, HR 81bpm, 87% on 1 L supplimental O2; stationary standing (sit to stand CGA with FWW, SBA while stationary standing) BP 116/84 , 77% on 1 L, 79-82% on 2L, 80 % on 3L recovers within 2 min with education on diaphramatic breathing to 88% in stationary position. Pt was able to walk in room chair to door and back (approx 30 ft) initially using FWW SBA therapist managed portable O2 tank and tubing, with noted decrease in O2 saturation 79- 80% on 3L. Pt requested need to use bathroom assessed no AD CGA and patient demonstrated contact wall for balance intially then able to turn in bathroom and clothing mgt himself with no self contact, stable, good slow descent sitting onto toilet using grab bar, then standing using grab bar and hygiene mgt himself, small BM. Pt then walked to sink CGA with portable O2 tanks and tubing provided. Pt did not required AD or contact surfaces for balance then patient returned to chair with Sa O2 79% on 3L, recovered with pursed lip breathing to 89% in 2 min. Pt needed to change rooms, CGA required secondary to slight wt shifts deviations around end of bed and doorway with self recovery improved with distance to next room approx 50 ft, no LOB but SaO2 decreased to 79% on 3L no active SOB, recovered in sitting within 2 min to 89% did not recover >89% before left on 3 L and continued cues for proper breathing. GROUNDS SUPERVISOR educated patient on importance of use of devices given for self breathing techniques as inspirometer and pickle for assist with O2 saturation, verballized understanding while also using oximeter as a self feedback visual tool. GROUNDS SUPERVISOR discussed importance of 1 person assist with or without FWW while mobilizing for safety, verbal understanding. Pt was able to complete seated exercises see details below to assist blood circulation and self strengthening. Pt was sitting in chair with nurse in room, chair alarm donned, call light and all needs in reach before left. Gait Assessment Gait Gait Assistance Required: Contact Guard Assist,1 Person Assist Distance (Feet) 50 Able to Maintain Weight Bearing Status Yes During Gait Assistive Devices Assistive Device None,Gait Belt,Front Wheeled Walker Orthotic/Prosthetic Devices or Brace: No Gait Deviations General Gait Pattern Antalgic,Decreased Stride Length,Decreased Feet Clearance Factors Limiting Gait Function Factors Limiting Gait Function Decreased Activity Tolerance, Decreased Strength,Poor Balance,Poor Safety Awareness, Respiratory Distress Comments Gait Comments See Mobility comments. Pt stated leave the walker nearby so I can go to the bathroom myself if need to. GROUNDS SUPERVISOR educated importance of 1 person SBA FWW or CGA with no AD for safety during mobility with decreased O2 saturation. Stair Climbing Assessment Comments Stair Climbing Comments Did not assess stairs. Pt stated doesn't need to use stairs between levels at home at this time, flush enterance and all needs on one level. PT-Balance Assessment Sitting Balance and Reactions Static Sitting Balance Ability Normal Dynamic Sitting Balance Ability Good Standing Balance and Reactions Static Standing Balance Ability Good Dynamic Standing Balance Ability Fair Device Used FWW M5 PT-IP Objective Assessments Start: 08/10/19 13:31 Freq: NEEDED Status: Active Protocol: Document 08/10/19 11:59 AB (Rec: 08/10/19 13:50 AB [id number]) Orientation Orientation/Cognition Level of Alertness Alert Orientation Name,Place,Situation Language Function Ability No Deficits Noted Safety Awareness Decreased Safety Awareness Gross Range of Motion Lower Extremity ROM Assessment Within Functional Limits Strength Lower Extremity Strength Assessment Within Functional Limits Muscle Tone Muscle Tone WNL Yes M6 PT-IP Treatment Start: 08/10/19 13:31 Freq: NEEDED Status: Active Protocol: Document 08/11/19 10:25 SP (Rec: 08/11/19 12:22 SP [id number]) Physical Therapy Treatment Exercises Exercises Ankle Pumps,Heel Slides, Straight Leg Raises,Seated Knee Flexion/Extension M7 PT-IP Assessment and Plan Start: 08/10/19 13:31 Freq: NEEDED Status: Active Protocol: Document 08/11/19 10:25 SP (Rec: 08/11/19 12:22 SP [id number]) PT Summary Assessment and Plan Potential Rehabilitation Potential Good Status of Condition at Evaluation Evolving Summary Impairments Pain,ROM,Strength,Balance, Coordination,Sensation,Tone, Cognition,Bed Mobility, Transfers,Gait,Activity Tolerance Assessment Summary pt required CGA with mobility and unable to tolerate much with decrease O2 sat to 79% with transfers and gait 1-3 L. d/c plan depending on progress but pt at this time will require home with assistance and PT to improve strength, activity tolerance and functional mobility. Recommend caregiver training prior to DC. Goals Bed Mobility Goal Independent Transfer Goal Independent,Front Wheeled Walker Gait Goal Independent,Front Wheel Walker Gait Distance 50 Other Goals improve ambulation without AD 250 ft SBA Days to Meet Goals 10 Frequency of Treatment Frequency Of Treatment Once a Day Treatment Plan Physical Therapy Treatment Plan Bed Mobility Training,Transfer Training,Gait Training, Therapeutic Exercise,Balance Retraining,Discharge Planning, Hot or Cold Pack,Neuromuscular Re-ed,Coordination Retraining ,Manual Therapy Recommendations To Nursing Amount of Assist Needed 1 Person Assist Discharge Recommendations PT Discharge Recommendations Home with Assistance,Home Health Equipment Needed for Home Before FWW if not safety without AD Discharge and O2 saturation. Transportation Needs at Discharge Private Vehicle
--- NOTE | 2019-08-11 12:09 | OT.IP.TRT ---
Current Diagnoses Sepsis, unspecified organism (08/03/19) Occupational Therapy Treatment Note M2 OT-IP Current Condition Start: 08/10/19 14:40 Freq: Status: Active Protocol: Document 08/10/19 14:41 CCC (Rec: 08/10/19 15:01 CCC [id number]) Occupational Therapy Current Condition Current Condition Evaluation Date 08/10/19 Treatment Diagnosis Acute respirtory Failure, Bilateral PNA Diagnosis Onset Date 08/03/19 Weight Bearing Status Weight Bearing Status Weight Bear as Tolerated M3 OT- IP Subjective and Pain Start: 08/10/19 14:40 Freq: Status: Active Protocol: Document 08/11/19 13:07 CGR (Rec: 08/11/19 13:25 CGR [email or web address]) OT- Subjective Occupational Therapy Visit Type Type Progress Note Visit Start Time 11:35 Visit Stop Time 12:09 Total Visit Minutes 34 Notes MD agreeable to shower for pt. Occupational Therapy Visit Comments Patient Comments I think this will be easier at home. OT Pain Assessment Pain When Pain Assessed At Rest Pain Present Pain Present Denied Pain M4 OT- IP ADL's Start: 08/10/19 14:40 Freq: Status: Active Protocol: Document 08/11/19 13:07 CGR (Rec: 08/11/19 13:25 CGR [email or web address]) OT [id number] General Evaluation Self-Feeding Ability Independent Comments OT Self-Feeding Comments Lunch delivered at end of session. OT ADL-Grooming General Evaluation Grooming Ability Standby Assistance Areas Needing Assistance Combing/Brushing Hair,Face Washing Comments OT Grooming Comments in shower OT ADL-Oral Care Comments Oral Care Comments not performed OT ADL-Dressing General Eval Upper Body Dressing Ability Independent Lower Body Dressing Ability Independent Areas Needing Assistance Underpants/Brief,Socks Comments OT Dressing Comments Hospital gown, pt needed VC to perform LB dressing sitting. OT ADL-Toileting Comments OT Toileting Comments not performed OT ADL-Bathing Bathing Type Bathing Type Shower General Evaluation Bathing Ability Standby Assistance Areas Needing Assistance Retrieving/Setting Up Items, Wash/Dry Back Devices Bathing Equipment Hand Held Shower Sprayer, Shower Chair with Arms,Grab Bars Comments OT Bathing Comments Pt showered seated on BSC in shower. M5 OT- IP IADL's Start: 08/10/19 14:40 Freq: Status: Active Protocol: Document 08/10/19 14:41 [facility] (Rec: 08/10/19 15:01 [facility] [id number]) OT-Instrumental Activities of Daily Living Medication Management Medication Management No Deficits Identified Money Management Money Management Comments Pt's pays the bills. M6 OT- IP Functional Cognition Start: 08/10/19 14:40 Freq: Status: Active Protocol: Document 08/10/19 14:41 [facility] (Rec: 08/10/19 15:01 [facility] [id number]) Cognitive Factors Limiting Selfcare Function Cognitive Ability Level of Alertness Alert Patient Orientation Name,Place,Situation Attention Span Ability Capable of Focused Attention, Capable of Sustained Attention Ability to Follow Commands Able to Follow Multi-Step Commands Safety Awareness Underestimates Need for Assistance Cognitive Comments Cognitive Assessment Comments Pt able to follow multiple directions and jus a little impulsive to get up. OT- Vision and Hearing OT- Hearing Assessment OT- Hearing Assessment WFL OT- Vision Assessment Visual Acuity WFL,Glasses For Reading M7 OT- IP Mobility and Balance Start: 08/10/19 14:40 Freq: Status: Active Protocol: Document 08/11/19 13:07 CGR (Rec: 08/11/19 13:25 CGR [email or web address]) OT-Transfer Assessment Sit to and From Stand Sit to and from Stand Standby Assistance Transfers Transfer Ability Standby Assistance Technique Transfer Destination Chair,Shower Stall Transfer Technique Stand Step Pivot Comments Mobility Comments Pt ambulated to bathroom and returned to chair at end of session. OT- Balance Assessment Sitting Balance and Reactions Static Sitting Balance Ability Good Dynamic Sitting Balance Ability Fair M8 OT- IP Objective Assessments Start: 08/10/19 14:40 Freq: Status: Active Protocol: Document 08/10/19 14:41 [facility] (Rec: 08/10/19 15:01 [facility] [id number]) OT Gross Range of Motion Upper Extremity Range of Motion Assessment Within Functional Limits OT Strength Upper Extremity Strength Assessment Within Functional Limits Comments Strength Comments BUE strength 5/5. OT-Muscle Tone Assessment Muscle Tone WNL Yes M9 OT- IP Assessment and Plan Start: 08/10/19 14:40 Freq: Status: Active Protocol: Document 08/11/19 13:07 CGR (Rec: 08/11/19 13:25 CGR [id number]) OT Summary Assessment and Plan Potential Rehabilitation Potential Good Analytic Complexity at Evaluation Low Summary OT Impairments Balance,Functional Mobility, Self-Feeding,Grooming,Dressing ,Toileting,Bathing,Toilet Transfers,Shower Transfers, Activity Tolerance Progress Towards Goals Slow Progress due to Medical Issues,Slow Progress due to Activity Tolerance Assessment Summary Pt participated with shower today. Pt destated to 84% upon returning to chair. He was on 3L throughout shower. Pt is impulsive and needs multiple cues for safety and energy conservation. Pt will benefit from continued therapy services while hospitalized. Goals Self-Feeding Goal Independent Grooming Goal Independent Dressing Goal Independent Toileting Goal Independent Bathing Goal Independent Toilet Transfer Goal Independent Shower Transfer Goal Independent Patient/Caregiver Education Goal Caregiver Independent Assisting Patient Days to Meet Goals 9 Frequency of Treatment Frequency Of Treatment Once a Day Treatment Plan OT Treatment Plan ADL Training,Functional Mobility,Patient/Family Education,Discharge Planning Discharge Recommendations OT Discharge Recommendations Home with Assistance,Home Health,SNF Rehab Home Equipment Needs Shower chair, FWW Transportation Needs at Discharge Private Vehicle
--- NOTE | 2019-08-11 13:43 | CM.DPNOTE ---
Addendum entered by IVONE Boucher 08/11/19 14:20: Faxed signed F2F and HH order to [facility] this afternoon. Original Note: DCP Cont According to Dr Hill, patient may be medically stable for DC Wednesday. According to Joann PT, patient does not have much activity tolerance and has continued to desat w/ambulation, he is okay to return home but therapy team recommends HH and home O2. RT aware patient will require assessment for home O2. Placed call to spouse Alyce, she is appreciative of the call; Alyce expects to take patient home upon DC and remains agreeable to [facility]. Alyce asks this NUTRITION CLUB AMBASSADOR about the logistics of home O2, referred to RT and suggested that if/when home O2 is arranged for patient, she will be contacted by the O2 vendor. Encouraged Alyce to consider securing a walker for patient, she plans to purchase one from a local drugstore. Spouse to complete cg training w/therapy team tomorrow AM. Following closely. P: DC likely w/in 24-48 hrs, home w/spouse and HH, possibly home O2. IVONE Boucher
--- NOTE | 2019-08-11 14:21 | PC.NURSE ---
PT DENIES PAIN AND HAS INCREASED MOBILITY SIGNIFICANTLY- LOWERED OXYGEN TO 2L NC AND HE IS SATURATING 90% ON 2L NC- DOES DESAT WITH ACTIVITY BUT RESOLVES WITHIN 2 MINUTES- PICC LINE REMAINS PATENT AND CONTINUES TO RECEIVE ANTIBIOTICS AND KCL RIDER INFUSING AT PRESENT FOR A K LEVEL 3.3- AMBULATING MUCH BETTER AND SHOWERED THIS AM- DIET INCREASED TO GENERAL WITH THIN LIQUIDS
--- NOTE | 2019-08-11 14:38 | ST.IPDYTX ---
Visit Care Team Role Provider Type James Mckenzie DO Primary Care Provider Physician Specialty: Family Practice Address: [address] [place] [address], [id number] Email: Anita oRjas DO Emergency Provider Physician Referring Provider Specialty: Emergency Medicine Address: [address] [place] [address] Email: [email or web address] Sylvia Bean MD Admit Provider Physician Attending Provider Specialty: Internal Medicine Address: [address] [place] [address], [id number] Email: [email or web address] SCRIPT READER Dysphagia Treatment SCRIPT READER Dysphagia Treatment Start: 08/09/19 12:32 Freq: Status: Active Protocol: Document 08/11/19 14:03 LL (Rec: 08/11/19 14:38 LL [id number]) Dysphagia Treatment Session Time Visit Start Time 13:45 Visit Stop Time 14:00 Total Visit Minutes 15 Setting Assessment Location Acute Care Visit Type Note Type Treatment Note Next Note Type Next Note Type Treatment Note Patient Information Identification Type Name,ID Wristband Subjective Observations Patient was lying supine in bed asleep and with nasal cannula (2 liters) upon ST arrival. ST woke up patient and raised the head of the bed (90 degrees) with patient's permission. Patient agreed to participate in regular texture PO trials to advance diet. Treatment Liquids Trialed Thin Solids Trialed Regular Administration Type Cup Single Sip,Controlled Cup Sip,Straw,Self-Feeding Oral Strategies Upright at 90 degrees, Controlled Bite/Sip Size Pharyngeal Strategies Sitting Upright (90 deg),Chin Tuck,Small Bites and Sips Treatment Activities Initially, patient independently demonstrated use of compensatory swallow strategies (e.g., small bites/ sips and chin tuck) when given trials of thin liquid by cup (ice water) and regular texture food (chan cracker). Patient presented with no overt s/sx of aspiration on thin liquid and regular texture when using above listed swallow strategies. SCRIPT READER trialed thin liquid by straw and regular texture without use of chin tuck, resulting in no overt s/sx of aspiration. O2 sats remained 90-91% with oral trials. SCRIPT READER informed patient the importance of taking small bites/sips to improve protection of airway and reduce risk of aspiration. Patient was educated on results and diet recommendations. SCRIPT READER wrote updated diet order on patient' s board and informed nursing of diet upgrade. Assessment Patient Response to Treatment Good Rehab Potential Good Assessment of Improvement Patient's swallowing abilities appear WFL at this time. Nursing reported improvement of respiratory function and strength since SOC. Informed nursing to notify ST if changes in swallowing are observed. Diet Recommendations Recommendations Upgrade Diet Order Liquids Order Thin Diet Order Regular Medication Recommendations As Tolerated Additional Dietary Needs Single Sips,Controlled Sips, Reminders to Use Strategies Aspiration Precautions Recommended Precautions Upright at 90 Degrees,Small Bites/Sips Treatment Plan Placement Recommendation after Discharge Home,Home with Home Health, Home Care Appropriate for Continued Therapy Yes Therapy Recommendations Continue to follow patient throughout hospital stay. Planned to d/c 08/12/19. Dysphagia Goals 1. The patient will perform safe swallow strategies independently to increase safety with oral intake. - GOAL MET 2. The patient will tolerate least restrictive diet to meet his nutrition and hydration needs.
--- NOTE | 2019-08-11 16:17 | RT ---
Home O2 Eval. O2 sats at rest, room air: 88% O2 sats at rest, 2 lpm nasal cannula: 92%. O2 sats ambulating, 2 lpm nasal cannula: 78% O2 sats ambulating, 3 lpm nasal cannula: 85% O2 sats ambulating, 4 lpm nasal cannula: 90% Recommend: home O2, 2 lpm at rest, 4 lpm nasal cannula with exertion.
[2019-08-11] MEDS: IPRATROPIUM HFA 2 PUFF INH (20:19)
[2019-08-11] MEDS: SIMVASTATIN 10 MG TABLET PO (20:49)
[2019-08-12 00:57] VITALS: BP 133/72; PULSE 75; RESP 18; TEMP 36.6; O2SAT 90
[2019-08-12 04:00] VITALS: BP 132/70; PULSE 62; RESP 16; TEMP 36.9; O2SAT 93
[2019-08-12] MEDS: LEVOTHYROXINE 50 MCG TABLET PO (05:15)
[2019-08-12 05:18] LABS: Add Manual Diff / Slide Review NO; Basophils Absolute Auto 100 /uL (0-100); Basophils Percent Auto 0.6 % (0-2); Eosinophils Absolute Auto 200 /uL (0-450); Eosinophils Percent Auto 2.4 % (2-4); Hematocrit 32.7 % (41-53); Hemoglobin 11.1 g/dL (13.5-17.5); Lymphocytes Absolute Auto 2700 /uL (1100-4500); Lymphocytes Percent Auto 28.9 % (25-40); Mean Corpuscular HGB Conc 33.9 % (30-36); Mean Corpuscular Hemoglobin 30.6 PG (26-34); Mean Corpuscular Volume 90.3 fL (80-100); Monocytes Absolute Auto 400 /uL (0-900); Monocytes Percent Auto 4.6 % (3-14); Neutrophils Absolute Auto 5800 /uL (1500-7000); Neutrophils Percent Auto 63.5 % (50-75); Platelet Count 352 X10^3/uL (150-400); Red Blood Cell Count 3.62 X10^6/uL (4.5-5.9); Red Cell Distribution Width 17.3 % (11.6-14.8); White Blood Cell Count 9.2 X10^3/uL (4.5-11.0)
[2019-08-12 06:20] LABS: BUN Creatinine Ratio 20.6 (6-22); Blood Urea Nitrogen 13 mg/dL (9-20); Calcium 8.6 mg/dL (8.4-10.2); Carbon Dioxide 31 mmol/L (22-32); Chloride 104 mmol/L (98-107); Estimated Glomerular Filt Rate > 60.0 mL/min (>60); Glucose 98 mg/dL (80-110); HEMOLYSIS < 15 (0-50); Potassium 3.2 mmol/L (3.4-5.1); Sodium 138 mmol/L (137-145)
[2019-08-12] MEDS: POTASSIUM CHLORIDE 20 MEQ TAB 40 MEQ PO (06:58)
[2019-08-12 07:00] VITALS: BP 105/65; PULSE 74; RESP 18; TEMP 36.2; O2SAT 93
--- NOTE | 2019-08-12 07:44 | P.DS_ITS ---
History of Present Illness History of Present Illness Date Patient Seen: 08/03/19 Chief complaint: trouble breathing Narrative: Written by Jennifer CASTREJON: Camron Burton is a 74-year-old male with history of rheumatoid arthritis on prednisone presented in extremis to the ED today for acute respiratory failure. His symptoms initially started with profound fatigue and muscle aches about 10 days ago. He did not become symptomatic respiratory gutierrez until today and has had fevers. He was nauseous when he arrived at the hospital but that is now resolved. Patient has been isolating himself at home due to having rheumatoid arthritis and being on immune suppressant affects of his prednisone. He states that his has been going shopping for him so she is exposed in the community. Denies chest pain, abdominal pain, dysuria, diarrhea or constipation. History of smoking 5-6 cigarettes a day but will plan to quit. 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 In the emergency department he initially demonstrated with a compensated respiratory alkalosis with a pH of 7.51, a PO2 of 56 mm Hg and a blood oxygen saturation level of 90% of and the patient was placed on BiPAP and improved a pH of 7.46, PaO2 to 89 mm Hg and an oxygen saturation to 90%. He was bolused with IV normal saline and given a initial dose of Zosyn 4.5 mg IV. Discharge Providers Provider Date of admission: 08/03/19 18:45 Discharge Date: 08/12/19 Primary care physician: James Mckenzie DO Consults: 08/03/19 20:33 Consult to Respiratory Therapy Evaluate & Treat Comment: Respiratory failure Physician Instructions: Evaluate and treat 08/04/19 11:46 Consult to Dietitian, Adult Routine Comment: Reason For Exam: Patient on Ventilator and NPO 08/08/19 15:21 Consult to Speech Therapy Evaluate & Treat Comment: s/p intubation Physician Instructions: Evaluate and treat 08/10/19 09:55 Consult to Occupational Therapy Evaluate & Treat Comment: Physician Instructions: Evaluate and treat Consult to Physical Therapy Evaluate & Treat Comment: Physician Instructions: Evaluate and Treat 08/11/19 13:51 Consult to Home Health Routine Comment: Reason For Exam: Home health upon DC Discharge provider: Coretta iHll DO Summary Hospital Course Discharge Diagnosis: 1. Acute hypoxemic respiratory failure, present on admission. Resolving. 2. Acute bilateral multifocal bacterial pneumonia, present on admission. Resolving. 3. Acute sepsis, secondary to bacterial pneumonia, present on admission. Resolved. 4. Acute drug-induced hypotension, present on admission. Resolved. 5. Acute demand ischemia with elevated troponin, present on admission. Resolved. 6. Acute volume overload, not present on admission. Resolved. 7. Acute hypokalemia, not present on admission. Resolved. 8. Acute severe protein calorie malnutrition, not present on admission. Active. 9. Rheumatoid arthritis, chronic, present on admission. Stable. 10. Hypothyroidism, chronic, present on admission. Stable. 11. History of a right bundle branch block. 12. Tobacco dependence, chronic, present on admission. Stable. 13. COPD, chronic, present on admission. Stable. Hospital Course: Camron Burton is a 74-year-old male with a past medical history significant for rheumatoid arthritis on prednisone, hyperlipidemia, pacemaker, tobacco dependence and hypothyroidism who presented with progressive worsening shortness of breath and found to have hypoxemic respiratory failure secondary to bilateral upper lobe pneumonia which failed NIPPV and subsequently required intubation. Patient was extubated on vent day 4 and is now titrating off of heated high flow. 1. Acute hypoxemic respiratory failure, present on admission. Resolving. -Chest x-ray demonstrated COPD and bilateral diffuse ill-defined opacities. -CTA chest demonstrated ground-glass attenuation throughout lungs with developing consolidation and posterior bilateral lower lobes. No PE. -Patient was hypoxemic with initial sats in the 70s and a respiratory alkalosis on admission. Patient was placed on BiPAP in the ED but further decompensated and went into respiratory distress requiring intubation on 08/03. The patient was diuresed for slight volume overload and then successful extubated on 08/07 to heated high-flow. Continued to titrate off of heated high-flow as tolerated to maintain oxygen saturations 88-92%. Patient currently on 2L supplemental oxygen. -Continued respiratory therapy evaluation and treatment. Discontinued nebs and started atrovent inhaker twice daily and albuterol inhaler 2 puffs every 4 hours as needed for shortness or wheezing. Continue incentive spirometer and Acapella frequently while awake with goal 10x an hour. -Patient was evaluated by respiratory therapy for home oxygen and was found to be hypoxemic at rest with SpO2 88% on room air which improved to 90% with 2 L. Patient was found to desat with activity and SpO2 78% on 2 L, SpO2 85% on 3 L and SpO2 90% on 4 L. Discharged with home oxygen 2 L at rest and 4 L with activity. 2. Acute bilateral multifocal bacterial pneumonia, present on admission. Resolving. -Chest x-ray demonstrated COPD with bilateral diffuse ill-defined opacities. -CTA chest demonstrated ground-glass attenuation throughout lungs with de veloping consolidation and posterior bilateral lower lobes. No PE. -Initial WBC 15.2 and procalcitonin 0.95. WBC trended down and normalized. Procalcitonin peaked at 6.71 and trending down now 0.59. Continue to monitor WBC and procalcitonin daily. -Ordered complete pneumonia workup including: Sputum culture has no growth to date. COVID-19 negative x2 and antibodies negative. Respiratory viral PCR negative. Blood cultures x2 negative. -Venous Doppler ultrasound of bilateral lower extremities negative for DVT. -Discontinued Zosyn 4.5 g every 6 hours as patient has received 8 days of anti biotics, infectious markers are negative, and pneumonia resolved by clinical exam. Also received vancomycin with dosing per pharmacist which was discontinued as MRSA screen and sputum and blood cultures were negative. Patient is immunocompromised and was severely ill, therefore, covered with broad -spectrum IV antibiotics for Gram-positive, Gram-negative, MRSA and anaerobes. 3. Acute sepsis, secondary to bacterial pneumonia, present on admission. Resolved. -Patient presented septic with organ dysfunction hypoxemic respiratory failure and hypotension which was fluid responsive and infectious source bilateral multifocal pneumonia. -Received early goal-directed therapy including: IV fluid resuscitation and broad-spectrum IV antibiotics. -Initial lactate 10.0 due to severe hypoxemia. Continued to monitor lactate until under 2.0. And improved after fluid resuscitation in the ED 4. Acute drug-induced hypotension, present on admission. Resolved. -Patient initially had mild hypotension due to sepsis and infection which was IV fluid responsive and resolved with treatment of pneumonia. The patient then had medication induced hypotension from high doses of sedation requiring brief amou nt of norepinephrine. 5. Acute demand ischemia with elevated troponin, present on admission. Resolved. -Secondary to sepsis and severe hypoxemia. -EKG demonstrated normal sinus rhythm without acute ischemic changes such as ST elevation or depression. -Troponin peaked at 0.069 and subsequently trended down. 6. Acute volume overload, not present on admission. Resolved. -Secondary to IV fluid resuscitation. -Limited echocardiogram demonstrated normal EF 60-65% and no significant valvular disease. In echocardiogram report it states that there is a pacemaker lead in the right ventricle and patient does not have a history of pacemaker and this is an error in the report. Previous echocardiogram did not demonstrate any systolic or diastolic dysfunction. -Received IV furosemide with good diuresis. 7. Acute hypokalemia, not present on admission. Resolved. -Secondary to diuresis and diarrhea. Potassium repleted with IV and PO potassium chloride. -Continued to monitor potassium level and replete as necessary. Recommended repeat potassium level in 3 days per PCP. 8. Acute severe protein calorie malnutrition, not present on admission. Active. -Secondary to NPO status while intubated for 5 days as evidence by 4.7% unintentional severe weight loss in week, BMI 22.2 (severe for age), patient had high gastric residuals while on ventilator leading to interrupted feeding and reduced feeding rate. -Consulted dietitian and we appreciate her time and recommendations. 9. Rheumatoid arthritis, chronic, present on admission. Stable. -Continue home prednisone 5 mg daily. -Recommended follow-up with outpatient electromechanical technologist for continued treatment of RA and glucocorticoid management. 10. Hypothyroidism, chronic, present on admission. Stable. -Continued home levothyroxine 50 mcg daily. 11. History of a right bundle branch block. -Patient is followed by his information technology security manager Dr. Chen and has had previous ischemic workup with cardiac stress test which was normal. 12. Tobacco dependence, chronic, present on admission. Stable. -Patient reports smoking 10 cigarettes a day up until this hospitalization. Patient has no desire to continue smoking. -Counseled patient extensively on smoking cessation and patient plans to abstain from smoking indefinitely. 13. COPD, chronic, present on admission. Stable. -Patient does not have formal diagnosis of COPD, however, patient has been a long-time smoker and has evidence of COPD on imaging. 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 -Discontinued nebs and started atrovent inhaler 2 puffs twice daily to prevent COPD exacerbation and hospitalization and albuterol inhaler 2 puffs every 4 hours as needed for shortness or wheezing. -Recommended referral to pulmonology for evaluation and treatment of COPD and underlying lung disease, as well as, pulmonary function testing in 2-3 months after he has recovered from acute illness. Exam Vital Signs (past 8 hours): - 08/12/19 00:57 08/12/19 04:00 Temperature 97.9 F 98.5 F Pulse Rate 75 62 Respiratory Rate 18 16 Blood Pressure 133/72 132/70 Pulse Oximetry 90 L 93 Fraction of Inspired Oxygen 0.35 Oxygen Delivery Method Nasal Cannula Oxygen Flow Rate 0 Narrative Exam Narrative: General: Eldelry gentleman sitting in bedside chair and in no acute distress, well-developed, well-nourished, appropriately interactive. HEENT: Normocephalic, atraumatic. External ears without defect. Pupils equal, round, and reactive to light. Anicteric sclerae, moist conjunctivae, and no lid lag. Oropharynx free of erythema and cobble stoning with moist mucosa. Neck: Supple with full range of motion. No jugular venous distension. No lymphadenopathy or thyromegaly. Cardiovascular: Regular rate and rhythm without murmurs, rubs, or gallops appreciated. Pulmonary: Clear to auscultation bilaterally without wheeze, rhonchi or crackles. Normal respiratory effort with no use of accessory muscles. Abdomen: Soft, bowel sounds present, nontender, nondistended. No hepatosplenomegaly or masses appreciated. Extremities: No clubbing, cyanosis, or edema. Skin: Normal temperature, turgor, and texture; no rash, ulcers, or subcutaneous nodules appreciated. Neurological: Cranial nerves grossly intact. Psychiatric: Normal mood and affect. Alert and oriented to person and place. Objective Labs Result Diagrams: 08/12/19 05:10 08/12/19 05:10 Labs: Laboratory Results - last 24 hr 08/12/19 08/12/19 05:10 05:10 WBC 9.2 RBC 3.62 L Hgb 11.1 L Hct 32.7 L MCV 90.3 MCH 30.6 MCHC 33.9 RDW 17.3 H Plt Count 352 Neut % (Auto) 63.5 Lymph % (Auto) 28.9 [place] % (Auto) 4.6 Eos % (Auto) 2.4 Baso % (Auto) 0.6 Neut # (Auto) 5800 Lymph # (Auto) 2700 [place] # (Auto) 400 Eos # (Auto) 200 Baso # (Auto) 100 Sodium 138 Potassium 3.2 L Chloride 104 Carbon Dioxide 31 BUN 13 Creatinine 0.63 L Estimated GFR > 60.0 BUN/Creatinine Ratio 20.6 Glucose 98 Calcium 8.6 Discharge Plan Discharge Plan Patient Disposition: Home Health Service Discharge comment: You are being discharged home with home health for physical and occupational therapy. You had bilateral pneumonia and have completed treatment with IV antibiotics for 8 days. Please follow-up with your primary care physician, Dr. Mckenzie, in the next 1 week regarding your hospitalization and a repeat potassium level in 3 days. Recommend referral to pulmonology to evaluate and treat COPD and lung disease, as well as, lung function testing in 2-3 months once you have recovered from your acute illness. Please follow-up with rheumatology regarding or rheumatoid arthritis and steroid management. You have been prescribed albuterol 2 puffs every 4 hours as needed for shortness of breath or wheezing and Atrovent 2 puff twice daily to help prevent COPD exacerbation and hospitalization. Please use a spacer with your inhalers. You are being sent home with oxygen (2 L at rest and 4 L with activity) and will likely need this for 1-2 weeks as you recover. Discharge orders & Medications Prescriptions: New albuterol sulfate [Ventolin HFA] 90 mcg/actuation Hfa Aerosol Inhaler 2 puff INH RTQ4HR PRN (Reason: Shortness Of Breath Or Wheezing) Qty: 1 RF: 0 Atrovent HFA 17 mcg/actuation Hfa Aerosol Inhaler 2 puff inhalation RTBID Qty: 12.9 RF: 0 Continued levothyroxine 50 mcg capsule 50 mcg PO DAILY Qty: 90 RF: 3 simvastatin 10 mg tablet 10 mg PO BEDTIME Qty: 90 RF: 0 prednisone 5 mg tablet 5 mg PO DAILY RF: 0 Discontinued prednisone 2.5 mg tablet 2.5 - 5 mg PO DAILY RF: 0 Other Ambulatory Orders: Basic Metabolic Panel (Stat) Timeframe: 3 Days Facility: [facility] - Location: Laboratory Ordered By: Coretta Hill Follow up/Referrals: James Mckenzie DO [Primary Care Provider] - 1 Week Diet/Activity/Treatments Diet: Low-fat, Low-sodium and Low-cholesterol Activity: Activity as tolerated with forward wheeled walker or cane and physical and occupational therapy Oxygen: 2 L at rest and increase to 4 L with activity Visit Report/Discharge Packet Instructions: DI for Chronic Obstructive Pulmonary Disease, DI for Pneumonia -- Adult, Albuterol (By breathing), Ipratropium (By breathing) Discharge Data Primary Care Provider: James Mckenzie VTE Deep Vein Thrombosis/Pulmonary Embolism Present on Admission: No
[2019-08-12] MEDS: IPRATROPIUM HFA 2 PUFF INH (08:02)
[2019-08-12 08:04] VITALS: O2SAT 92
[2019-08-12] MEDS: predniSONE 5 MG TABLET PO (08:33)
[2019-08-12] MEDS: SODIUM CHLORIDE 0.9% FLUSH 10 ML IV (08:33)
--- NOTE | 2019-08-12 10:02 | PC.NURSE ---
0940- Pt was placed on RA by Dr. Hill on rounds ~0900. Pt maintained SPO2 88-90% while sitting up to chair, transferring back to bed and while sitting up in bed until ~0940. Pt noted to have SPO2 85% on RA. Checked on pt who was resting in bed HOB 45 degrees in no apparent distress. Pt denies shortness of breath. Applied O2 at 2L NC and pt increased SPO2 to 93% after about 10 minutes.
--- NOTE | 2019-08-12 11:42 | PT.IPTN ---
Current Diagnoses Sepsis, unspecified organism (08/03/19) Hypokalemia (08/03/19) Physical Therapy Treatment Note M2 PT-IP Current Condition Start: 08/10/19 13:31 Freq: NEEDED Status: Active Protocol: Document 08/10/19 11:59 AB (Rec: 08/10/19 13:50 AB [id number]) Physical Therapy Current Condition Current Condition Evaluation Date 08/10/19 Treatment Diagnosis acute respiratory failure; PNA ; difficulty in walking Onset Date 08/03/19 Precautions Other Precautions O2 sat M3 PT-IP Subjective Start: 08/10/19 13:31 Freq: NEEDED Status: Active Protocol: Document 08/12/19 11:10 SP (Rec: 08/12/19 13:01 SP [id number]) Subjective Physical Therapy Visit Type Type Treatment Note Visit Start Time 11:10 Visit Stop Time 11:42 Total Visit Minutes 26 Notes Alyce in room when arrived, completed caregiver training. Number of COMPETITIVE ATHLETE Visits 2 Physical Therapy Visit Comments Patient Comments Pt agreed to work with therapy and during tx. Patient Goals Return home with with home health services. Therapy Pain Assessment Pain Present Pain Present Denied Pain M4 PT-IP Mobility and Gait Start: 08/10/19 13:31 Freq: NEEDED Status: Active Protocol: Document 08/12/19 11:45 SP (Rec: 08/12/19 13:01 SP [id number]) PT-Bed Mobility Assessment Supine to Sit Supine to Sit Standby Assistance PT-Transfer Assessment Sit to and From Stand Sit to and from Stand Standby Assistance,Contact Guard Assistance,Use of Upper Extremities Equipment Transfer Assistive Device None,Gait Belt,Front Wheeled Walker Orthotic/Prosthetic Devices or Brace: No Transfers Transfer Destination Chair Transfer Technique Stand Step Pivot Transfer Ability Level of Assist Contact Guard Assistance,Use of Upper Extremities Comments Mobility Comments Pt was laying in bed when arrived, in room to complete caregiver training. CGT included donning gait belt , oximeter assessment, bed mobility, transfer, gait with/ without FWW and required use of supplimental O2 for maintaining SaO2 > 90% durign mobility. O2 on 2 L at rest 92 -93%, 84% during gait 2L, 88- 90% on 3L recovered quickly 20 sec and cues from for proper breathing. COMPETITIVE ATHLETE educated may need to increase O2 3-4L if needed for maintaining in 90s during mobility for safety . Pt was able to complete supine to sitting SBA, CGA sit to stand from EOB and step pivot to chair no AD approx 3 ft with providing CGA assist and O2 tubing mgt as needed. COMPETITIVE ATHLETE educated patient and on O2 tank and tubing change to portable for home mgt but that company supplying will also review their particular device. Pt demonstrated tiring during gait chair to L in hallway no AD initially CGA by , little unsteady sways on his feet approx 80 ft in hallway CGA, he was stable with use of FWW during second 80 ft distance and maintained 88-90% on 3L during mobility and cuing for proper breathing and stationary stance and slow pacing for energy conservation and recovery. stated was able to get an oximeter and FWW for home. COMPETITIVE ATHLETE provided cuing for backing up with FWW fully to sit in chair for safety with balance. Pt was in chair with alarm armed, call light and all needs in reach when left, in room. COMPETITIVE ATHLETE discussed with patient and to continue to use FWW for safety and energy conservation including CGA- SBA with verbal agreement. Therapy recommending home with assist of and HHPT when patient medically stable. Gait Assessment Gait Gait Assistance Required: Contact Guard Assist,1 Person Assist Distance (Feet) 160 Able to Maintain Weight Bearing Status Yes During Gait Assistive Devices Assistive Device None,Gait Belt,Front Wheeled Walker Orthotic/Prosthetic Devices or Brace: No Gait Deviations General Gait Pattern Antalgic,Decreased Stride Length,Decreased Feet Clearance Factors Limiting Gait Function Factors Limiting Gait Function Decreased Activity Tolerance, Decreased Strength,Poor Balance,Poor Safety Awareness, Respiratory Distress Comments Gait Comments See mobility comments. Stair Climbing Assessment Comments Stair Climbing Comments Pt and stated doesn't need to use stairs between levels of house, level entry to home. Did not assess. PT-Balance Assessment Sitting Balance and Reactions Static Sitting Balance Ability Normal Dynamic Sitting Balance Ability Good Standing Balance and Reactions Static Standing Balance Ability Good Dynamic Standing Balance Ability Fair Device Used FWW and no AD M5 PT-IP Objective Assessments Start: 08/10/19 13:31 Freq: NEEDED Status: Active Protocol: Document 08/10/19 11:59 AB (Rec: 08/10/19 13:50 AB [id number]) Orientation Orientation/Cognition Level of Alertness Alert Orientation Name,Place,Situation Language Function Ability No Deficits Noted Safety Awareness Decreased Safety Awareness Gross Range of Motion Lower Extremity ROM Assessment Within Functional Limits Strength Lower Extremity Strength Assessment Within Functional Limits Muscle Tone Muscle Tone WNL Yes M6 PT-IP Treatment Start: 08/10/19 13:31 Freq: NEEDED Status: Active Protocol: Document 08/12/19 11:45 SP (Rec: 08/12/19 13:01 SP [id number]) Physical Therapy Treatment Exercises Exercises Ankle Pumps,Seated Knee Flexion/Extension Education Education Provided Safety M7 PT-IP Assessment and Plan Start: 08/10/19 13:31 Freq: NEEDED Status: Active Protocol: Document 08/12/19 11:45 SP (Rec: 08/12/19 13:01 SP [id number]) PT Summary Assessment and Plan Potential Rehabilitation Potential Good Status of Condition at Evaluation Evolving Summary Impairments Pain,ROM,Strength,Balance, Coordination,Sensation,Tone, Cognition,Bed Mobility, Transfers,Gait,Activity Tolerance Assessment Summary Completed caregiver training with patient including gait belt donning, bed mobility, transfer and gait initiallly with no AD little unsteady sway self recovery CGA, assist provided by . Pt more stable with FWW and has one at home. Pt SaO2 2L mid 90s at rest, 88-90% on 3L during mobililty, education provided to both for self feedback using pulse oximeter and knowing normal ranges and use of supplimental O2 for safety. COMPETITIVE ATHLETE discussed with patient and to continue to use FWW for safety and energy conservation including CGA- SBA with verbal agreement . Therapy recommending home with assist of and HHPT when patient medically stable. Goals Bed Mobility Goal Independent Transfer Goal Independent,Front Wheeled Walker Gait Goal Independent,Front Wheel Walker Gait Distance 50 Other Goals improve ambulation without AD 250 ft SBA Days to Meet Goals 10 Frequency of Treatment Frequency Of Treatment Once a Day Treatment Plan Physical Therapy Treatment Plan Bed Mobility Training,Transfer Training,Gait Training, Therapeutic Exercise,Balance Retraining,Discharge Planning, Hot or Cold Pack,Neuromuscular Re-ed,Coordination Retraining ,Manual Therapy Recommendations To Nursing Amount of Assist Needed 1 Person Assist Discharge Recommendations PT Discharge Recommendations Home with Assistance,Home Health Equipment Needed for Home Before FWW use at this time and O2 Discharge saturation. Transportation Needs at Discharge Private Vehicle
--- NOTE | 2019-08-12 12:25 | PC.NURSE ---
Pt sitting up to chair with at bedside for discharge education. PT performed caregiver education with . Reviewed diagnoses, medication regimens, need for f/u appts, when to seek emergency medical care, home oxygen use, need for repeat labs. Pt and both verbalize understanding of teaching. RT supplied O2 tank and set up home O2 delivery with [employer]. assisted pt to dress. All belongings gathered and placed in a belongings bag. Pt transferred to w/c with SBA and was escorted to POV in no acute distress with O2.
--- NOTE | 2019-08-12 15:21 | CM.DPNOTE ---
DC Note: DC order in place for home today w/ HH and Home O2. Reviewed DCP w/patient and his Alyce, both agreeable to [facility] RN/PT/OT. Faxed DC summary to [facility]. P: Home today w/ spouse, Home O2 through [facility] and HH RN/PT/OT through [facility] DERRICK
== END 2019-08-12 12:30 | disposition home health service (06) | DRG 870 ==
LOC: ED 18:24 → ICU 20:51
PROVIDERS: Internal Medicine; Nurse Practitioner Adult Health; Nurse Practitioner Family; Admitting Provider Internal Medicine; Emergency Provider Emergency Medicine; PCP Family Medicine; Referring Provider Emergency Medicine; Visit Provider Internal Medicine
DX: A41.9 Sepsis, unspecified organism (principal); J96.01 Acute respiratory failure with hypoxia; J15.9 Unspecified bacterial pneumonia; I50.31 Acute diastolic (congestive) heart failure; E43 Unspecified severe protein-calorie malnutrition; I47.1 Supraventricular tachycardia; J44.0 Chronic obstructive pulmonary disease with (acute) lower respiratory infection; I24.8 Other forms of acute ischemic heart disease; R65.20 Severe sepsis without septic shock; I45.10 Unspecified right bundle-branch block; E87.6 Hypokalemia; I95.2 Hypotension due to drugs; T41.295A Adverse effect of other general anesthetics, initial encounter; M06.9 Rheumatoid arthritis, unspecified; Z79.52 Long term (current) use of systemic steroids; E78.5 Hyperlipidemia, unspecified; E03.9 Hypothyroidism, unspecified; F17.210 Nicotine dependence, cigarettes, uncomplicated; Z03.818 Encounter for observation for suspected exposure to other biological agents ruled out; Z95.0 Presence of cardiac pacemaker
CPT/HCPCS: 36415; 36569; 36592; 36600; 51701; 71045; 71275; 80048; 80053; 80076; 80202; 81001; 82550; 82553; 82728; 82805; 82962; 83605; 83735; 83880; 84145; 84484; 85025; 85379; 86140; 86769; 87040; 87070; 87205; 87502; 87633; 87635; 87797; 92526; 92610; 93005; 93306; 93970; 94002; 94003; 94618; 94640; 94660; 94760; 94762; 94770; 94799; 96361; 96365; 96375; 97110; 97116; 97162; 97165; 97530; 97535; 99285; 99291; J1642; J1650; J1885; J1940; J2060; J2270; J2405; J2543; J2704; J2920; J3010; J3480; J7613

== ENCOUNTER → 2019-08-15 09:31 | Outpatient (CLI) | payer MEDICARE, OTHER, SELFPAY ==
[2018-02-23 15:38] VITALS: PULSE 55
[2019-08-03 20:00] VITALS: BMI 23.0
[2019-08-08 13:40] VITALS: PULSE 67; RESP 13; O2SAT 92
[2019-08-15 09:59] LABS: BUN Creatinine Ratio 22.9 (6-22); Blood Urea Nitrogen 16 mg/dL (9-20); Calcium 9.4 mg/dL (8.4-10.2); Carbon Dioxide 27 mmol/L (22-32); Chloride 106 mmol/L (98-107); Estimated Glomerular Filt Rate > 60.0 mL/min (>60); Glucose 113 mg/dL (80-110); HEMOLYSIS < 15 (0-50); Potassium 4.1 mmol/L (3.4-5.1); Sodium 140 mmol/L (137-145)
== END ==
PROVIDERS: PCP Family Medicine; Referring Provider Internal Medicine; Visit Provider Internal Medicine
DX: E87.6 Hypokalemia (principal)
CPT/HCPCS: 36415; 80048

== ENCOUNTER → 2019-09-12 07:11 | Outpatient (CLI) | payer MEDICARE, OTHER, SELFPAY ==
[2018-02-23 15:38] VITALS: PULSE 55
[2019-08-03 20:00] VITALS: BMI 23.0
[2019-08-08 13:40] VITALS: PULSE 67; RESP 13; O2SAT 92
[2019-09-12 08:20] LABS: Add Manual Diff / Slide Review NO; Basophils Absolute Auto 0 /uL (0-100); Basophils Percent Auto 0.2 % (0-2); Eosinophils Absolute Auto 0 /uL (0-450); Eosinophils Percent Auto 0.4 % (2-4); Hematocrit 39.1 % (41-53); Hemoglobin 13.4 g/dL (13.5-17.5); Lymphocytes Absolute Auto 900 /uL (1100-4500); Lymphocytes Percent Auto 15.3 % (25-40); Mean Corpuscular HGB Conc 34.2 % (30-36); Mean Corpuscular Hemoglobin 31.5 PG (26-34); Mean Corpuscular Volume 91.9 fL (80-100); Monocytes Absolute Auto 200 /uL (0-900); Monocytes Percent Auto 3.1 % (3-14); Neutrophils Absolute Auto 4800 /uL (1500-7000); Platelet Count 253 X10^3/uL (150-400); Red Blood Cell Count 4.26 X10^6/uL (4.5-5.9); Red Cell Distribution Width 19.4 % (11.6-14.8); White Blood Cell Count 5.9 X10^3/uL (4.5-11.0)
[2019-09-12 08:57] LABS: Alanine Aminotransferase 26 IU/L (<50); Albumin 3.8 g/dL (3.5-5.0); Albumin Globulin Ratio 1.1 (1.0-2.8); Alkaline Phosphatase 85 U/L (38-126); Aspartate Aminotransferase 28 IU/L (17-59); BUN Creatinine Ratio 30.6 (6-22); Bilirubin Total 0.6 mg/dL (0.2-1.3); Blood Urea Nitrogen 19 mg/dL (9-20); Calcium 9.2 mg/dL (8.4-10.2); Carbon Dioxide 24 mmol/L (22-32); Chloride 105 mmol/L (98-107); Cholesterol 248 mg/dL (140-199); Estimated Glomerular Filt Rate > 60.0 mL/min (>60); Globulin 3.5 g/dL (1.7-4.1); Glucose 127 mg/dL (80-110); HDL Cholesterol 46 mg/dL (40-60); HEMOLYSIS < 15 (0-50); LDL Cholesterol Calculated 181 mg/dL (<100); Sodium 137 mmol/L (137-145); Total Protein 7.3 g/dL (6.3-8.2); Triglycerides 107 mg/dL (35-150)
[2019-09-12 09:11] LABS: Free T4, Direct Thyroxine 1.07 ng/dL (0.78-2.19)
[2019-09-12 09:23] LABS: Prostate Specific Antigen 2.15 ng/mL (0.10-4.00)
== END ==
PROVIDERS: PCP Family Medicine; Referring Provider Family Medicine; Visit Provider Family Medicine
DX: Z12.5 Encounter for screening for malignant neoplasm of prostate (principal); I71.4 Abdominal aortic aneurysm, without rupture; J44.9 Chronic obstructive pulmonary disease, unspecified; K86.2 Cyst of pancreas; E03.9 Hypothyroidism, unspecified; E78.5 Hyperlipidemia, unspecified
CPT/HCPCS: 36415; 80053; 80061; 84153; 84439; 84443; 84481; 85025; G0103

== ENCOUNTER → 2019-12-08 06:58 | Outpatient (CLI) | payer MEDICARE, OTHER, SELFPAY ==
[2018-02-23 15:38] VITALS: PULSE 55
[2019-08-03 20:00] VITALS: BMI 23.0
[2019-08-08 13:40] VITALS: PULSE 67; RESP 13; O2SAT 92
[2019-12-08 08:13] LABS: Cholesterol 192 mg/dL (140-199); HDL Cholesterol 54 mg/dL (40-60); LDL Cholesterol Calculated 124 mg/dL (<100); Triglycerides 71 mg/dL (35-150)
== END ==
PROVIDERS: PCP Family Medicine; Referring Provider Family Medicine; Visit Provider Family Medicine
DX: E78.5 Hyperlipidemia, unspecified (principal)
CPT/HCPCS: 36415; 80061

== ENCOUNTER → 2020-06-20 08:31 | Outpatient (CLI) | payer MEDICARE, OTHER, SELFPAY ==
[2018-02-23 15:38] VITALS: PULSE 55
[2019-08-03 20:00] VITALS: BMI 23.0
[2019-08-08 13:40] VITALS: PULSE 67; RESP 13; O2SAT 92
[2020-06-20 09:41] LABS: Cholesterol 196 mg/dL (140-199); HDL Cholesterol 66 mg/dL (40-60); LDL Cholesterol Calculated 118 mg/dL (<100); Triglycerides 58 mg/dL (35-150)
== END ==
PROVIDERS: PCP Family Medicine; Referring Provider Internal Medicine Cardiovascular Disease; Visit Provider Internal Medicine Cardiovascular Disease
DX: E78.5 Hyperlipidemia, unspecified (principal)
CPT/HCPCS: 36415; 80061

== ENCOUNTER → 2020-06-21 10:41 | Outpatient (CLI) | payer MEDICARE, OTHER, SELFPAY ==
[2018-02-23 15:38] VITALS: PULSE 55
[2019-08-03 20:00] VITALS: BMI 23.0
[2019-08-08 13:40] VITALS: PULSE 67; RESP 13; O2SAT 92
--- NOTE | 2020-06-21 | DI.US.S_ITS ---
PROCEDURE: US RETRO PERITONEAL LIMITED INDICATIONS: Abdominal aortic aneurysm, without rupture TECHNIQUE: Real time scanning was performed of the aorta and iliac arteries, with image documentation. COMPARISON: [facility] Ultrasound, US, US AORTA RETROPERITONEAL LIMITED, 01/17/2019, 9:43. [facility], CT, CT ABDOMEN PELVIS WO/W CON, 02/09/2019, 14:08. [facility], CT, CT ANGIO CHEST PE PROTOCOL, 08/03/2019, 16:55. FINDINGS: Aorta: Proximal aortic diameter measures 1.8 x 2.1 cm. Mid-aorta measures 3.4 x 3.5 cm. Distal aortic diameter is 1.8 x 2.5 cm. Iliac arteries: Right common iliac artery measures 1.1 cm. Left common iliac artery measures 1.0 cm. IMPRESSION: Stable infrarenal mid abdominal aortic aneurysm. Dictated by: Alberto Park M.D. on 06/21/2020 at 16:08 Approved by: Alberto Park M.D. on 06/21/2020 at 16:10
== END ==
PROVIDERS: PCP Family Medicine; Referring Provider Internal Medicine Cardiovascular Disease; Visit Provider Internal Medicine Cardiovascular Disease
DX: I71.4 Abdominal aortic aneurysm, without rupture (principal)
CPT/HCPCS: 76775

== ENCOUNTER → 2020-09-27 06:50 | Outpatient (CLI) | payer MEDICARE, OTHER, SELFPAY ==
[2019-08-03 20:00] VITALS: BMI 23.0
[2019-08-08 13:40] VITALS: PULSE 67; RESP 13; O2SAT 92
[2020-09-27 08:13] LABS: Alanine Aminotransferase 21 IU/L (<50); Albumin 4.1 g/dL (3.5-5.0); Albumin Globulin Ratio 1.3 (1.0-2.8); Alkaline Phosphatase 55 U/L (38-126); Aspartate Aminotransferase 26 IU/L (17-59); Bilirubin Total 0.9 mg/dL (0.2-1.3); Bilirubin Unconjugated 0.8 mg/dL (0.0-1.1); Cholesterol 173 mg/dL (140-199); Globulin 3.2 g/dL (1.7-4.1); HDL Cholesterol 55 mg/dL (40-60); HEMOLYSIS < 15 (0-50); LDL Cholesterol Calculated 107 mg/dL (<100); Total Protein 7.3 g/dL (6.3-8.2); Triglycerides 57 mg/dL (35-150)
== END ==
PROVIDERS: PCP Family Medicine; Referring Provider Internal Medicine Cardiovascular Disease; Visit Provider Internal Medicine Cardiovascular Disease
DX: E78.5 Hyperlipidemia, unspecified (principal)
CPT/HCPCS: 36415; 80061; 80076

== ENCOUNTER → 2021-04-16 07:59 | Outpatient (CLI) | payer MEDICARE, OTHER, SELFPAY ==
[2019-08-03 20:00] VITALS: BMI 23.0
[2019-08-08 13:40] VITALS: PULSE 67; RESP 13; O2SAT 92
[2021-04-16 10:12] LABS: Add Manual Diff / Slide Review NO; Basophils Absolute Auto 0 /uL (0-100); Basophils Percent Auto 0.2 % (0-2); Eosinophils Absolute Auto 200 /uL (0-450); Eosinophils Percent Auto 3.2 % (2-4); Hematocrit 38.7 % (41-53); Hemoglobin 13.2 g/dL (13.5-17.5); Lymphocytes Absolute Auto 700 /uL (1100-4500); Lymphocytes Percent Auto 11.3 % (25-40); Mean Corpuscular Hemoglobin 31.2 PG (26-34); Mean Corpuscular Volume 91.7 fL (80-100); Monocytes Absolute Auto 600 /uL (0-900); Neutrophils Absolute Auto 5000 /uL (1500-7000); Neutrophils Percent Auto 76.3 % (50-75); Platelet Count 262 X10^3/uL (150-400); Red Blood Cell Count 4.22 X10^6/uL (4.5-5.9); Red Cell Distribution Width 13.6 % (11.6-14.8); White Blood Cell Count 6.6 X10^3/uL (4.5-11.0)
[2021-04-16 10:27] LABS: Cholesterol 163 mg/dL (140-199); HDL Cholesterol 36 mg/dL (40-60); LDL Cholesterol Calculated 114 mg/dL (<100); Triglycerides 66 mg/dL (35-150)
[2021-04-16 10:29] LABS: Alanine Aminotransferase 24 IU/L (<50); Albumin 4.1 g/dL (3.5-5.0); Albumin Globulin Ratio 1.3 (1.0-2.8); Alkaline Phosphatase 70 U/L (38-126); Aspartate Aminotransferase 26 IU/L (17-59); BUN Creatinine Ratio 16.5 (6-22); Bilirubin Total 0.6 mg/dL (0.2-1.3); Blood Urea Nitrogen 16 mg/dL (9-20); Calcium 9.4 mg/dL (8.4-10.2); Carbon Dioxide 26 mmol/L (22-32); Chloride 105 mmol/L (98-107); Estimated Glomerular Filt Rate > 60.0 mL/min (>60); Globulin 3.2 g/dL (1.7-4.1); Glucose 109 mg/dL (80-110); HEMOLYSIS < 15 (0-50); Potassium 4.8 mmol/L (3.4-5.1); Sodium 142 mmol/L (137-145); Total Protein 7.3 g/dL (6.3-8.2)
[2021-04-16 10:47] LABS: Free T3, Triiodothyronine Free 3.27 pg/mL (2.77-5.27); Free T4, Direct Thyroxine 1.12 ng/dL (0.78-2.19)
[2021-04-16 11:00] LABS: Prostate Specific Antigen Scrn 2.53 ng/mL (0.1-4.0); Thyroid Stimulating Hormone 1.49 uIU/mL (0.47-4.68)
== END ==
PROVIDERS: PCP Family Medicine; Referring Provider Internal Medicine Cardiovascular Disease; Visit Provider Internal Medicine Cardiovascular Disease
DX: E03.9 Hypothyroidism, unspecified (principal); Z12.5 Encounter for screening for malignant neoplasm of prostate; E78.5 Hyperlipidemia, unspecified; E78.00 Pure hypercholesterolemia, unspecified
CPT/HCPCS: 36415; 80053; 80061; 84439; 84443; 84481; 85025; G0103

== ENCOUNTER → 2021-06-11 07:54 | Outpatient (CLI) | payer MEDICARE, OTHER, SELFPAY ==
[2019-08-03 20:00] VITALS: BMI 23.0
[2019-08-08 13:40] VITALS: PULSE 67; RESP 13; O2SAT 92
[2021-06-11 09:01] LABS: Cholesterol 159 mg/dL (140-199); HDL Cholesterol 54 mg/dL (40-60); LDL Cholesterol Calculated 95 mg/dL (<100); Triglycerides 50 mg/dL (35-150)
== END ==
PROVIDERS: PCP Family Medicine; Referring Provider Internal Medicine Cardiovascular Disease; Visit Provider Internal Medicine Cardiovascular Disease
DX: E78.5 Hyperlipidemia, unspecified (principal)
CPT/HCPCS: 36415; 80061

== ENCOUNTER → 2021-09-05 07:44 | Outpatient (CLI) | payer MEDICARE, OTHER, SELFPAY ==
[2019-08-03 20:00] VITALS: BMI 23.0
[2019-08-08 13:40] VITALS: PULSE 67; RESP 13; O2SAT 92
--- NOTE | 2021-09-05 07:46 | DI.ECHO.S_ITS ---
[place] [facility]---------+ [facility] +---------+ : : [address] : : : : [id number] : : : : Phone: [phone]+ Echocardiogram Report + + :Name: DANIEL KHALIL Study Date: 09/05/2021 Height: 72 in : :[facility] ReadingLocation: Weight: 203 lb : : Gender: Male BSA: 2.1 m2 : :: 1945 Age: 76 yrs BP: 150/86 mmHg: :Reason For Study: Murmur : :Ordering Physician: ANETTE, : :AMRITA Performed By: Ming Clarke : :Referring: AMRITA CHEEMA : + + Interpretation Summary The left ventricle is normal in size. The ejection fraction is estimated to be 65-70%. The right ventricle is normal in size and function. Patient does not have a pacemaker. There is mild aortic regurgitation. Compared to the prior echo study, there has been an increase in the severity of aortic regurgitation. The IVC is of normal diameter and collapses greater than 50% with a sniff. This suggests a low right atrial pressure of 3 mm Hg. Procedure: A two-dimensional transthoracic echocardiogram with color flow and Doppler was performed. The study quality was technically adequate. Comparison is made with the echocardiogram of 08/04/2019. The patient had a bundle branch block rhythm during the exam. The patient was in sinus bradycardia with heart rates between 50-58 bpm during the exam. Left Ventricle: The left ventricle is normal in size. Proximal septal thickening is noted. A false chord is noted (normal variant). Left ventricular systolic function is normal. The ejection fraction is estimated to be 65-70%. There are no focal wall motion abnormalities. Diastolic parameters suggest probable normal left ventricular diastolic function and normal filling pressures. Right Ventricle: The right ventricle is normal in size and function. Atria: Both atria are normal in size. A prominent eustachian valve is noted. The interatrial septum grossly appears intact with no obvious evidence for an atrial septal defect. The thickening of interatrial septum suggests lipomatous hypertrophy. Mitral Valve: The mitral valve leaflets appear borderline thickened, but open well. There is mild mitral regurgitation. Aortic Valve: The aortic valve is trileaflet. The aortic valve opens well. There is no aortic valve stenosis. There is mild aortic regurgitation. Compared to the prior echo study, there has been an increase in the severity of aortic regurgitation. Tricuspid Valve: The tricuspid valve is normal in structure and function. Pulmonary artery pressures cannot be estimated because of the lack of a measurable TR jet velocity. There is trace tricuspid regurgitation. There has been no significant change since the previous study. Pulmonic Valve: The pulmonic valve is normal in structure and function. There is trace pulmonic regurgitation. Great Vessels: The aortic root is normal size. The dimensions of the ascending aorta are normal. The IVC is of normal diameter and collapses greater than 50% with a sniff. This suggests a low right atrial pressure of 3 mm Hg. Pericardium/ Pleura There is no pericardial effusion. There is an anterior echo-free space consistent with a fat pad. There is no pleural effusion. MMode/2D Measurements & Calculations LVIDd: 5.3 cm LVOT diam: 2.2 cm LVIDs: 3.4 cm Ao root diam: 3.7 cm FS: 35.0 % asc Aorta Diam: 3.4 cm IVSd: 0.79 cm LVPWd: 0.87 cm LV foster. diameter/BSA (cm/m^2): 2.5 LV sys. diameter/BSA (cm/m^2): 1.6 LA A2 area: 18.7 cm2 RA long axis: 5.2 cm LA A4 area: 17.5 cm2 RA area: 11.6 cm2 LA length (vol): 5.1 cm RA vol: 22.2 ml LA vol: 54.6 ml RA : 10.4 ml/m2 LA vol index: 25.5 ml/m2 TAPSE: 2.0 cm Doppler Measurements & Calculations Ao V2 max: 154.6 cm/sec LVOT Max Bulmaro: 126.3 cm/sec Ao V2 mean: 112.9 cm/sec LV V1 max P.4 mmHg Ao max P.6 mmHg LV V1 VTI: 26.1 cm Ao mean P.5 mmHg MECHE(I,D): 2.9 cm2 Ao V2 VTI: 33.9 cm MECHE(V,D): 3.1 cm2 sev ratio: 0.77 MECHE indexed to BSA (cm^2/m^2): 1.4 AI P1/2t: 672.3 msec AI dec slope: 197.1 cm/sec2 MV E max bulmaro: 68.8 cm/sec SV(LVOT): 98.6 ml MV A max bulmaro: 60.7 cm/sec MV E/A: 1.1 Med Peak E' Bulmaro: 8.3 cm/sec E/E' med: 8.3 Lat Peak E' Bulmaro: 10.2 cm/sec E/E' lat: 6.7 E/e' average: 7.5 MV dec time: 0.28 sec Reading Physician:05:32 PM
== END ==
PROVIDERS: PCP Family Medicine; Referring Provider Internal Medicine Cardiovascular Disease; Visit Provider Internal Medicine Cardiovascular Disease
DX: I08.0 Rheumatic disorders of both mitral and aortic valves (principal); R01.1 Cardiac murmur, unspecified
CPT/HCPCS: 93306

== ENCOUNTER → 2021-09-08 09:23 | Outpatient (CLI) | payer MEDICARE, OTHER, SELFPAY ==
[2019-08-03 20:00] VITALS: BMI 23.0
[2019-08-08 13:40] VITALS: PULSE 67; RESP 13; O2SAT 92
[2021-09-08 10:57] LABS: COVID19 -Nasal RAPID Negative (Negative)
== END ==
PROVIDERS: PCP Family Medicine; Visit Provider Surgery
DX: Z20.822 Contact with and (suspected) exposure to COVID-19 (principal); Z01.812 Encounter for preprocedural laboratory examination
CPT/HCPCS: 87635; C9803

== ENCOUNTER 2021-09-09 11:51 | Day surgery (SDC) | payer MEDICARE, OTHER, SELFPAY ==
[2019-08-03 20:00] VITALS: BMI 23.0
[2019-08-08 13:40] VITALS: PULSE 67; RESP 13; O2SAT 92
[2021-09-09] VITALS (9 sets, daily range): BP systolic 99–120; BP diastolic 62–78; PULSE 47–65; RESP 10–16; TEMP 36.3–36.9; O2SAT 91–98; BMI 27.1
--- NOTE | 2021-09-09 | PATH_ITS ---
[place] Accession Number: [id number] No. of containers..01 Tissue . 01 Material submitted: . rectum - RECTUM . 01 Clinical history: . [facility] PERSONAL HISTORY OF COLONIC POLYPS . 01 Diagnosis: Rectum, Biopsy: Hyperplastic rectal mucosa. Negative for dysplasia and malignancy. MRV 09/12/2021 1318 Local . 01 Electronically signed: . Kary Brown MD, Pathologist NPI- [id number] . 01 Gross description: . RECTUM: Received in formalin is 1 fragment(s) of garcia, soft tissue measuring 0.5 x 0.4 x 0.3 cm submitted entirely in 1 cassette(s) /CPE 09/11/2021 0556 Local . 01 Pathologist provided ICD-10: Z86.010 . 01 CPT . 304967 Specimen Comment: A courtesy copy of this report has been sent to [phone] Performed at: 01 [facility] [address] [place] [address], [place], [place] [id number] MD Justin Salazar MD Phone: [phone]
[2021-09-09] MEDS: LACTATED RINGERS 1,000 ML 200 ML IV (12:18)
--- NOTE | 2021-09-09 12:27 | PM.HP.1 ---
History of Present Illness History of Present Illness Date Patient Seen: 09/09/21 Time Patient Seen: 12:27 Chief complaint: LAC Narrative: 76-year-old man personal history of colonic polyps and a father who developed colon cancer here for screening colonoscopy. No blood per rectum diarrhea constipation. He does report occasional discomfort associated with his ascending colon no precipitating factors. Patient History Medical History Acute respiratory failure with hypoxia Cataract (2015) Chicken pox (1949) Colon polyps (1999) COPD (chronic obstructive pulmonary disease) CTS (carpal tunnel syndrome) GI bleeding (2015) Hearing loss (2015) Hyperlipidemia Hypothyroidism Joint pain in both hands Low HDL (under 40) Measles (1951) Mumps (1951) Myalgia Pneumonia Sepsis Skin cancer (2012) Stiffness of joints of both hands Surgical History Anesthesia History of appendectomy (2011) History of tonsillectomy (1954) Family & Social History Family History Father Liver cancer Mother Lung cancer Brother Cancer Brother No problems noted. Brother No problems noted. Daughter No problems noted. Social History: household members spouse Tobacco & Substance use: Smoking Status Former smoker alcohol intake former alcohol intake frequency 0-2 drinks per day Substance Use Type does not use Meds Home Medications and Allergies Home Medications Medication Instructions Recorded Confirmed Type atorvastatin 20 mg tablet 20 mg PO DAILY 04/22/21 09/09/21 History upadacitinib 15 mg tablet,extended 15 mg PO DAILY 04/22/21 09/09/21 History release 24 hr (Rinvoq) levothyroxine 50 mcg tablet See Rx Instructions .Route 08/19/21 09/09/21 Rx .COMPLEX #90 tabs Allergies Allergy/AdvReac Type Severity Reaction Status Date / Time No Known Drug Allergies Allergy Verified 09/09/21 11:59 Exam Vital Signs (past 8 hours): - 09/09/21 12:11 Temperature 97.4 F L Pulse Rate 64 Respiratory Rate 16 Blood Pressure 117/78 Pulse Oximetry 98 Oxygen Delivery Method Room Air Oxygen Delivery Method Room Air Narrative Exam Narrative: General adult male alert oriented no acute distress Chest nonlabored respirations Extremities warm well perfused Assessment & Plan Assessment & Plan narrative: The patient requires colorectal screening and colonoscopy is recommended. Technical details were discussed. Risks, benefits, alternatives explained. Risks including but not limited to myocardial infarction, aspiration, bleeding, pain, missed lesion, incomplete examination, need for further radiographic studies, colonic perforation, and need for major abdominal surgery were discussed. All questions were answered to their satisfaction, and they are in agreement with this plan. Time Spent With Patient Critical Care time: I spent a total of [] minutes of critical care time on this patient's care today; this time is exclusive of procedural time.
--- NOTE | 2021-09-09 12:47 | PM.OP.COLON ---
Operative Date/Time/Diagnoses Date of procedure: 09/09/21 Time of procedure: 12:47 Pre-op diagnosis: Family history of colon cancer, personal history of colonic polyps Post-op diagnosis: same Procedure & Clinicians Study performed: Colonoscopy Same procedure as scheduled: Yes Indications: Personal history of colonic polyps, family history of colon cancer. Surgeon: Ashok Abdul Procedure Notes Procedure in detail: Medications: Conscious sedation using 4mg IV midazolam and *100mcg IV of fentanyl The history and physical was performed/updated and the patient is ASA class is 2. The procedure was discussed in detail with the patient. Potential risks complications including infection, bleeding, missed diagnosis, perforation, need for surgery, and were explained. Their questions were answered and informed consent was obtained. Patient was brought to the procedure room and placed standard monitoring equipment. The patient's vital signs were monitored continuously throughout the entire procedure. Prior to starting time-out was performed. The patient was placed in the left lateral recumbent position. Procedural sedation was administered. Examination began with a thorough inspection of the perianal area there was no evidence of fissures, fistulae, external hemorrhoids or cutaneous malignancy. The colonoscopy scope was then placed into the anal canal and was advanced to the cecum, which was identified by the ileocecal valve, the appendiceal orifice and the confluence of the taenia. The scope was then slowly withdrawn examining colon thoroughly in all directions, irrigating it of any residual stool. FINDINGS 1. Rectum-2 polyps removed with biopsy forceps 2. Diverticulosis The patient tolerated the procedure well. They will be discharged once criteria are met. The prep was of good/excellent quality. The withdrawl time was 6 minutes. The sedation time was 15 minutes. Specimen(s): other (Rectum) Impression: Polyps Post-procedure Recommendations: Colonoscopy in 5 years Disposition: same day surgery
[2021-09-09] MEDS: fentaNYL 250 MCG/5 ML INJ IV (12:48)
[2021-09-09] MEDS: MIDAZOLAM 5 MG/5 ML VIAL IV (12:49)
--- NOTE | 2021-09-09 13:35 | SUR.PHASEI ---
Denies dizziness, light-headedness
== END 2021-09-09 13:56 | disposition home or self-care (01) ==
PROVIDERS: PCP Family Medicine; Referring Provider Surgery; Visit Provider Surgery
PROC: 0DJD8ZZ Inspection of Lower Intestinal Tract, Via Natural or Artificial Opening Endoscopic (ICD-10-PCS; CPT 45378; principal; 2021-09-09 13:00)
DX: Z12.11 Encounter for screening for malignant neoplasm of colon (principal); Z80.0 Family history of malignant neoplasm of digestive organs; Z86.010 Personal history of colon polyps; K57.30 Diverticulosis of large intestine without perforation or abscess without bleeding; K62.1 Rectal polyp
CPT/HCPCS: 45380; 99152; J2250; J3010

== ENCOUNTER → 2022-05-13 09:45 | Outpatient (CLI) | payer MEDICARE, OTHER, SELFPAY ==
[2019-08-03 20:00] VITALS: BMI 23.0
[2019-08-08 13:40] VITALS: PULSE 67; RESP 13; O2SAT 92
[2022-05-13 11:12] LABS: Add Manual Diff / Slide Review NO; Basophils Absolute Auto 0 /uL (0-100); Basophils Percent Auto 0.3 % (0-2); Eosinophils Absolute Auto 100 /uL (0-450); Eosinophils Percent Auto 2.4 % (2-4); Hematocrit 41.2 % (41-53); Lymphocytes Absolute Auto 1300 /uL (1100-4500); Mean Corpuscular HGB Conc 33.9 % (30-36); Mean Corpuscular Hemoglobin 32.5 PG (26-34); Mean Corpuscular Volume 95.7 fL (80-100); Monocytes Absolute Auto 600 /uL (0-900); Monocytes Percent Auto 11.6 % (3-14); Neutrophils Absolute Auto 3100 /uL (1500-7000); Neutrophils Percent Auto 60.7 % (50-75); Platelet Count 179 X10^3/uL (150-400); Red Blood Cell Count 4.31 X10^6/uL (4.5-5.9); Red Cell Distribution Width 14.1 % (11.6-14.8); White Blood Cell Count 5.1 X10^3/uL (4.5-11.0)
[2022-05-13 11:40] LABS: Alanine Aminotransferase 51 IU/L (<50); Albumin 4.4 g/dL (3.5-5.0); Albumin Globulin Ratio 1.3 (1.0-2.8); Alkaline Phosphatase 51 U/L (38-126); Aspartate Aminotransferase 35 IU/L (17-59); Bilirubin Total 1.3 mg/dL (0.2-1.3); Blood Urea Nitrogen 17 mg/dL (9-20); Carbon Dioxide 27 mmol/L (22-32); Chloride 106 mmol/L (98-107); Cholesterol 155 mg/dL (140-199); Estimated Glomerular Filt Rate > 60 mL/min (>60); Globulin 3.3 g/dL (1.7-4.1); Glucose 100 mg/dL (80-110); HDL Cholesterol 53 mg/dL (40-60); HEMOLYSIS < 15 (0-50); LDL Cholesterol Calculated 92 mg/dL (<100); Potassium 4.9 mmol/L (3.4-5.1); Sodium 141 mmol/L (137-145); Total Protein 7.7 g/dL (6.3-8.2); Triglycerides 50 mg/dL (35-150)
[2022-05-13 12:01] LABS: Free T3, Triiodothyronine Free 3.95 pg/mL (2.77-5.27); Free T4, Direct Thyroxine 1.19 ng/dL (0.78-2.19)
[2022-05-13 12:15] LABS: Thyroid Stimulating Hormone 1.56 uIU/mL (0.47-4.68)
[2022-05-13 12:17] LABS: Prostate Specific Antigen Scrn 2.17 ng/mL (0.1-4.0)
== END ==
PROVIDERS: PCP Family Medicine; Referring Provider Family Medicine; Visit Provider Family Medicine
DX: E03.9 Hypothyroidism, unspecified (principal); E78.00 Pure hypercholesterolemia, unspecified; Z12.5 Encounter for screening for malignant neoplasm of prostate; E78.6 Lipoprotein deficiency
CPT/HCPCS: 36415; 80053; 80061; 84439; 84443; 84481; 85025; G0103

== ENCOUNTER → 2023-03-03 14:44 | Outpatient (CLI) | payer MEDICARE, OTHER, SELFPAY ==
[2019-08-03 20:00] VITALS: BMI 23.0
[2019-08-08 13:40] VITALS: PULSE 67; RESP 13; O2SAT 92
--- NOTE | 2023-03-03 14:47 | DI.RAD.S_ITS ---
PROCEDURE: XR FOOT RT MIN 3V INDICATIONS: Right foot pain/swelling x 3+ weeks TECHNIQUE: 3 views of the foot were acquired. COMPARISON: None. FINDINGS: Bones: No fractures or dislocations. No periosteal reaction. No suspicious bony lesions. Soft tissues: No tibiotalar joint effusion. Achilles tendon appears normal. IMPRESSION: No fracture or dislocation demonstrated. If clinically indicated CT could be considered for further evaluation. Dictated by: Tima Hdez M.D. on 03/03/2023 at 16:49 Approved by: Tima Hdez M.D. on 03/03/2023 at 16:50
== END ==
PROVIDERS: Family Provider Family Medicine; PCP Family Medicine; Referring Provider Physician Assistant; Visit Provider Physician Assistant
DX: M06.9 Rheumatoid arthritis, unspecified (principal); M79.671 Pain in right foot
CPT/HCPCS: 73630

== ENCOUNTER 2023-03-04 09:00 | Outpatient (RCR) | payer MEDICARE, OTHER, SELFPAY ==
[2019-08-03 20:00] VITALS: BMI 23.0
[2019-08-08 13:40] VITALS: PULSE 67; RESP 13; O2SAT 92
--- NOTE | 2022-12-21 15:18 | PT.OIE ---
Current Diagnoses Pain in right shoulder (12/21/22) Past Medical History (Last Updated 11/11/22 @ 16:59 by Gurpreet Mckenzie DO) Acute pain of right shoulder Acute respiratory failure with hypoxia Cataract (2015) Chicken pox (1950) Colon polyps (1999) COPD (chronic obstructive pulmonary disease) CTS (carpal tunnel syndrome) FHx: prostate cancer Foreign body of ear, left GI bleeding (2016) Hearing loss (2016) Hyperlipidemia Hypothyroidism Joint pain in both hands Low HDL (under 40) Measles (1951) Mumps (1951) Myalgia Pneumonia Sepsis Skin cancer (2012) Stiffness of joints of both hands Supraspinatus tendonitis Past Surgical History (Last Reviewed 09/09/21 @ 12:28 by Ashok Abdul MD) Anesthesia History of appendectomy (2011) History of tonsillectomy (1954) Visit Care Team Role Provider Type Gurpreet Mckenzie DO Attending Provider Physician Family Provider Primary Care Provider Referring Provider Specialty: [facility] Address: [address] [place] [address] Email: Physical Therapy Initial Evaluation PT-OP-A Visit Information Start: 12/21/22 15:17 Freq: Status: Active Protocol: Document 12/21/22 15:18 AM (Rec: 12/21/22 17:23 AM [id number]) Out-Patient Physical Therapy Visit Information Visit Information Visit Type Initial Evaluation Visit Start Time 15:18 Visit Stop Time 16:00 Total Visit Minutes 42 Visit Number 1 Precautions Precautions RA PT-OP-B Current Condition Start: 12/21/22 15:17 Freq: Status: Active Protocol: Document 12/21/22 15:18 AM (Rec: 12/21/22 17:23 AM [id number]) Current Condition History of Current Condition Onset Date 1.5 months ago History of Current Condition Pt went to his rheumatoid doctor and she noticed that he had a kurt muscle on his R arm indicating torn biceps. He did not have any pain associated at the time. Pt unsure of how he tore it, though possible from lifting. Pt also reports bilateral hand cramping and spasms. Prior Treatments and Tests MRI indicating biceps tendon tear, AC arthritis, supraspinatus, infraspinatus and subscap tear, glenoid labral tear PT-OP-C Subjective Start: 12/21/22 15:17 Freq: Status: Active Protocol: Document 12/21/22 15:18 AM (Rec: 12/21/22 17:23 AM [id number]) OP-PT Pain Assessment Pain Assessment Grid Paper Pain Assessment Grid Completed Yes Location Right Shoulder Pain Location Details R scapular Intensity 4 Scale Used Numeric (0 - 10) Description Aching,Sharp Frequency Occasional Pain Aggravating Factors ADL's,Lifting Pain Alleviating Factors Rest PT-OP-J Posture/Palpation/Skin Start: 12/21/22 15:17 Freq: Status: Active Protocol: Document 12/21/22 15:18 AM (Rec: 12/21/22 17:23 AM [id number]) Posture Evaluation Position Sitting Head/C-Spine Posture Forward Head Shoulder Posture (L) Forward,(R) Forward Palpation Assessment Location R shoulder Palpation Location Tenderness at posterior deltoid area, palpable biceps bulge PT-OP-K Range of Motion Start: 12/21/22 15:17 Freq: Status: Active Protocol: Document 12/21/22 15:18 AM (Rec: 12/21/22 17:23 AM [id number]) Shoulder Goniometric Range of Motion Shoulder Left Active Shoulder ROM WFL Yes Testing Position Sitting Flexion 145 Abduction 145 Internal Rotation Behind Back (text) T11 Comments Aply T6 ER, Right Active Shoulder ROM WFL Yes Testing Position Sitting Flexion 138 Abduction 140 Internal Rotation Behind Back (text) L2 Comments Aply T3 ER, PT-OP-L Special Tests Start: 12/21/22 15:17 Freq: Status: Active Protocol: Document 12/21/22 15:18 AM (Rec: 12/21/22 17:23 AM [id number]) Special Tests Shoulder Special Tests Empty Can Test Results positive Kurt Biceps Test Results positive PT-OP-M Strength Start: 12/21/22 15:17 Freq: Status: Active Protocol: Document 12/21/22 15:18 AM (Rec: 12/21/22 17:23 AM [id number]) Shoulder Strength Shoulder Manual Muscle Testing Right Flexion 4 Good Abduction (C5) 4- Good- External Rotation 4+ Good+ Internal Rotation 4+ Good+ Left Flexion 5 Normal Abduction (C5) 5 Normal External Rotation 5 Normal Internal Rotation 5 Normal Elbow/Forearm Strength Elbow and Forearm Manual Muscle Testing Right Flexion (C6) 4 Good Extension (C7) 4+ Good+ Left Flexion (C6) 5 Normal Extension (C7) 5 Normal PT-OP-Q Treatments Start: 12/21/22 15:17 Freq: Status: Active Protocol: Document 12/21/22 15:18 AM (Rec: 12/21/22 17:23 AM [id number]) Therapeutic Exercises Standing Exercises 3-way biceps Standing Exercise Name 3-way biceps Side right Resistance [place] TB Resisted abduction Standing Exercise Name Resisted abduction Side right Resistance [place] TB PT-OP-T Assessment and Plan Start: 12/21/22 15:17 Freq: Status: Active Protocol: Document 12/21/22 15:18 AM (Rec: 12/21/22 17:23 AM [id number]) Physical Therapy Assessment Rehab Potential Rehabilitation Potential Good Evaluation Complexity Number of Personal Factors/Comorbidities 1-2 Number of Body Systems Impaired 1-2 Clinical Presentation at Evaluation Stable Impairments Impairments Activity Tolerance,Functional Activities,Pain,ROM,Soft Tissue Mobility,Strength Goals Strength Impairment Pt with 4- biceps and abduction strength Long-Term Goal (LTG) Pt with 4/5 strength at biceps and shoulder abduction LTG Duration 01/18/23 Golf Impairment Pt concerned about being able to swing a golf club. Long-Term Goal (LTG) Pt able to chip and putt without increase in R shoulder pain LTG Duration 01/18/23 HEP Impairment Pt unsure of appropriate R shoulder exercises Hvac Field Service Technician Goal (LTG) Pt independent with HEP LTG Duration 01/18/23 Quick Dash Impairment Pt with Quick Dash score of 22 .7% disability Hvac Field Service Technician Goal (LTG) Pt with Quick Dash score of < 15% disability LTG Duration 01/18/23 Assessment Summary Assessment Camron Burton presents to PT with R shoulder pain following recent biceps tendon rupture. Pt reported having ecchymosis following, though none present currently. Pt denies pain currently, though has had scapular pain of 4/5. Pt with recent MRI that showed rotator cuff and biceps tear. Pt demonstrates very good shoulder ROM and strength, with strength limitations primarily with shoulder abduction. Pt would benefit from continued PT to strengthen shoulder girdle as tolerated. Physical Therapy Plan Frequency and Duration Frequency of Treatment 2x/Week Duration of treatment (weeks) 4 Plan of Care Start Date 12/21/22 Plan of Care End Date 01/18/23 Therapeutic Interventions Therapeutic Interventions Home Exercise Program,Joint Mobilizations,Manual Therapy, Neuromuscular Re-education, Patient/Caregiver Education, Self-Care/Home Management,Soft Tissue Mobilization,Taping, Therapeutic Activities, Therapeutic Exercises Modalities Cold Pack/Ice Massage,Electric Stimulation,Hot Packs, Ultrasound Next Visit Focus/Plan Next Note Type Treatment Note Next Visit Plan Continue to progress R Shoulder strength as tolerated
--- NOTE | 2022-12-21 15:18 | PT.OPPOC ---
Physical, Occupational & Speech Therapy At [facility] Current Diagnoses Pain in right shoulder (12/21/22) Visit Care Team Role Provider Type Gurpreet Mckenzie DO Attending Provider Physician Family Provider Primary Care Provider Referring Provider Specialty: Family Practice Address: [address] [place] [address], [id number] Email: Plan Of Care PT-OP-T Assessment and Plan Start: 12/21/22 15:17 Freq: Status: Active Protocol: Document 12/21/22 15:18 AM (Rec: 12/21/22 17:23 AM [id number]) Physical Therapy Assessment Rehab Potential Rehabilitation Potential Good Evaluation Complexity Number of Personal Factors/Comorbidities 1-2 Number of Body Systems Impaired 1-2 Clinical Presentation at Evaluation Stable Impairments Impairments Activity Tolerance,Functional Activities,Pain,ROM,Soft Tissue Mobility,Strength Goals Strength Impairment Pt with 4- biceps and abduction strength Nursing Home Goal (LTG) Pt with 4/5 strength at biceps and shoulder abduction LTG Duration 01/18/23 Golf Impairment Pt concerned about being able to swing a golf club. Nursing Home Goal (LTG) Pt able to chip and putt without increase in R shoulder pain LTG Duration 01/18/23 HEP Impairment Pt unsure of appropriate R shoulder exercises Nursing Home Goal (LTG) Pt independent with HEP LTG Duration 01/18/23 Quick Dash Impairment Pt with Quick Dash score of 22 .7% disability Printing Gray Cloth Tender Goal (LTG) Pt with Quick Dash score of < 15% disability LTG Duration 01/18/23 Assessment Summary Assessment Camron Burton presents to PT with R shoulder pain following recent biceps tendon rupture. Pt reported having ecchymosis following, though none present currently. Pt denies pain currently, though has had scapular pain of 4/5. Pt with recent MRI that showed rotator cuff and biceps tear. Pt demonstrates very good shoulder ROM and strength, with strength limitations primarily with shoulder abduction. Pt would benefit from continued PT to strengthen shoulder girdle as tolerated. Physical Therapy Plan Frequency and Duration Frequency of Treatment 2x/Week Duration of treatment (weeks) 4 Plan of Care Start Date 12/21/22 Plan of Care End Date 01/18/23 Therapeutic Interventions Therapeutic Interventions Home Exercise Program,Joint Mobilizations,Manual Therapy, Neuromuscular Re-education, Patient/Caregiver Education, Self-Care/Home Management,Soft Tissue Mobilization,Taping, Therapeutic Activities, Therapeutic Exercises Modalities Cold Pack/Ice Massage,Electric Stimulation,Hot Packs, Ultrasound Next Visit Focus/Plan Next Note Type Treatment Note Next Visit Plan Continue to progress R Shoulder strength as tolerated Plan of Care Dates Plan of Care Start Date 12/21/22 Plan of Care End Date 01/18/23 Electronically Signed by: Nicole Griffin, PT 12/21/22 1278 If you are in agreement with this Plan of Care, please return a signed and dated copy. I have reviewed this Plan of Care and certify that the skilled therapy services above are required to meet the patient?s needs. Physician Signature Date Printed Name and Credentials Clinical Instructor Signature Printed Name and Credentials
--- NOTE | 2022-12-24 15:20 | PT.OTN ---
Current Diagnoses Pain in right shoulder (12/24/22) Stiffness of right hand, not elsewhere classified (12/24/22) Stiffness of left hand, not elsewhere classified (12/24/22) Physical Therapy Treatment Note PT-OP-A Visit Information Start: 12/21/22 15:17 Freq: Status: Active Protocol: Document 12/24/22 15:20 AM (Rec: 12/24/22 17:23 AM [id number]) Out-Patient Physical Therapy Visit Information Visit Information Visit Type Treatment Note Visit Start Time 15:20 Visit Stop Time 16:06 Total Visit Minutes 46 Visit Number 2 Precautions Precautions RA PT-OP-B Current Condition Start: 12/21/22 15:17 Freq: Status: Active Protocol: Document 12/24/22 15:20 AM (Rec: 12/24/22 17:23 AM [id number]) Current Condition History of Current Condition Onset Date 1.5 months ago History of Current Condition Pt went to his rheumatoid doctor and she noticed that he had a kurt muscle on his R arm indicating torn biceps. He did not have any pain associated at the time. Pt unsure of how he tore it, though possible from lifting. Pt also reports bilateral hand cramping and spasms. Prior Treatments and Tests MRI indicating biceps tendon tear, AC arthritis, supraspinatus, infraspinatus and subscap tear, glenoid labral tear PT-OP-C Subjective Start: 12/21/22 15:17 Freq: Status: Active Protocol: Document 12/24/22 15:20 AM (Rec: 12/24/22 17:23 AM [id number]) OP-PT Subjective Patient Comments Patient Comments Pt denies much pain. Pt reports some soreness with shoulder abduction exercise while doing them. Pt reports that his hand cramping occurs primarily in the evening. PT-OP-J Posture/Palpation/Skin Start: 12/21/22 15:17 Freq: Status: Active Protocol: Document 12/21/22 15:18 AM (Rec: 12/21/22 17:23 AM [id number]) Posture Evaluation Position Sitting Head/C-Spine Posture Forward Head Shoulder Posture (L) Forward,(R) Forward Palpation Assessment Location R shoulder Palpation Location Tenderness at posterior deltoid area, palpable biceps bulge PT-OP-K Range of Motion Start: 12/21/22 15:17 Freq: Status: Active Protocol: Document 12/21/22 15:18 AM (Rec: 12/21/22 17:23 AM [id number]) Shoulder Goniometric Range of Motion Shoulder Left Active Shoulder ROM WFL Yes Testing Position Sitting Flexion 145 Abduction 145 Internal Rotation Behind Back (text) T11 Comments Aply T6 ER, Right Active Shoulder ROM WFL Yes Testing Position Sitting Flexion 138 Abduction 140 Internal Rotation Behind Back (text) L2 Comments Aply T3 ER, PT-OP-L Special Tests Start: 12/21/22 15:17 Freq: Status: Active Protocol: Document 12/21/22 15:18 AM (Rec: 12/21/22 17:23 AM [id number]) Special Tests Shoulder Special Tests Empty Can Test Results positive Kurt Biceps Test Results positive PT-OP-M Strength Start: 12/21/22 15:17 Freq: Status: Active Protocol: Document 12/21/22 15:18 AM (Rec: 12/21/22 17:23 AM [id number]) Shoulder Strength Shoulder Manual Muscle Testing Right Flexion 4 Good Abduction (C5) 4- Good- External Rotation 4+ Good+ Internal Rotation 4+ Good+ Left Flexion 5 Normal Abduction (C5) 5 Normal External Rotation 5 Normal Internal Rotation 5 Normal Elbow/Forearm Strength Elbow and Forearm Manual Muscle Testing Right Flexion (C6) 4 Good Extension (C7) 4+ Good+ Left Flexion (C6) 5 Normal Extension (C7) 5 Normal PT-OP-Q Treatments Start: 12/21/22 15:17 Freq: Status: Active Protocol: Document 12/24/22 15:20 AM (Rec: 12/24/22 17:23 AM [id number]) Cardio Equipment Upper Body Ergometer (UBE) Duration (Minutes) 5 RPM 60 Height 14 Therapeutic Exercises Standing Exercises Wrist flexor stretch Side bilateral Reps/Minutes x30 sec Shoulder extension Side bilateral Resistance BTB Reps/Minutes 2x15 Row Side bilateral Resistance BTB Reps/Minutes 2x15 Shoulder press Standing Exercise Name Shoulder press Side bilateral Resistance 1# Reps/Minutes 2x10 Resisted shoulder flexion Standing Exercise Name Resisted flexion Side bilateral Equipment Used 1# Reps/Minutes 2x10 3-way biceps Standing Exercise Name 3-way biceps Side right Resistance 5# Reps/Minutes x10 ea Resisted abduction Standing Exercise Name Resisted scaption Side right Resistance 1# Reps/Minutes 2x10 Manual Therapy Treatment Soft Tissue Mobilization Wrist flexors Body Location Bilateral wrist flexors, R biceps and anterior shoulder Mobilization Type Myofascial Release,Rolling Intensity/Depth Moderate Body Position Supine PT-OP-T Assessment and Plan Start: 12/21/22 15:17 Freq: Status: Active Protocol: Document 12/24/22 15:20 AM (Rec: 12/24/22 17:23 AM [id number]) Physical Therapy Assessment Goals Strength Impairment Pt with 4- biceps and abduction strength Halfway Goal (LTG) Pt with 4/5 strength at biceps and shoulder abduction LTG Duration 01/18/23 Golf Impairment Pt concerned about being able to swing a golf club. Hydrometeorology Teacher Goal (LTG) Pt able to chip and putt without increase in R shoulder pain LTG Duration 01/18/23 HEP Impairment Pt unsure of appropriate R shoulder exercises Hydrometeorology Teacher Goal (LTG) Pt independent with HEP LTG Duration 01/18/23 Quick Dash Impairment Pt with Quick Dash score of 22 .7% disability Hydrometeorology Teacher Goal (LTG) Pt with Quick Dash score of < 15% disability LTG Duration 01/18/23 Assessment Summary Assessment Pt tolerated strengthening well today with min increase in symptoms. Pt with shoulder soreness with shoulder abduction, though improved with scaption motion. Pt with tenderness along wrist flexors , particularly FCU with STM. Pt with stiffness along wrist flexors, therefore stretch added to HEP. Pt would benefit from continued PT to gradually progress shoulder strength as tolerated. Physical Therapy Plan Frequency and Duration Frequency of Treatment 2x/Week Duration of treatment (weeks) 4 Plan of Care Start Date 12/21/22 Plan of Care End Date 01/18/23 Next Visit Focus/Plan Next Note Type Treatment Note Next Visit Plan Continue to progress R Shoulder strength as tolerated
--- NOTE | 2022-12-28 12:22 | PT.OTN ---
Current Diagnoses Pain in right shoulder (12/28/22) Stiffness of right hand, not elsewhere classified (12/28/22) Stiffness of left hand, not elsewhere classified (12/28/22) Physical Therapy Treatment Note PT-OP-A Visit Information Start: 12/21/22 15:17 Freq: Status: Active Protocol: Document 12/28/22 12:22 AM (Rec: 12/28/22 13:53 AM [id number]) Out-Patient Physical Therapy Visit Information Visit Information Visit Type Treatment Note Visit Start Time 12:22 Visit Stop Time 13:03 Total Visit Minutes 41 Visit Number 3 PT-OP-B Current Condition Start: 12/21/22 15:17 Freq: Status: Active Protocol: Document 12/24/22 15:20 AM (Rec: 12/24/22 17:23 AM [id number]) Current Condition History of Current Condition Onset Date 1.5 months ago History of Current Condition Pt went to his rheumatoid doctor and she noticed that he had a kurt muscle on his R arm indicating torn biceps. He did not have any pain associated at the time. Pt unsure of how he tore it, though possible from lifting. Pt also reports bilateral hand cramping and spasms. Prior Treatments and Tests MRI indicating biceps tendon tear, AC arthritis, supraspinatus, infraspinatus and subscap tear, glenoid labral tear PT-OP-C Subjective Start: 12/21/22 15:17 Freq: Status: Active Protocol: Document 12/28/22 12:22 AM (Rec: 12/28/22 13:53 AM [id number]) OP-PT Subjective Patient Comments Patient Comments Pt reports being a little sore after last session at his biceps. PT-OP-J Posture/Palpation/Skin Start: 12/21/22 15:17 Freq: Status: Active Protocol: Document 12/21/22 15:18 AM (Rec: 12/21/22 17:23 AM [id number]) Posture Evaluation Position Sitting Head/C-Spine Posture Forward Head Shoulder Posture (L) Forward,(R) Forward Palpation Assessment Location R shoulder Palpation Location Tenderness at posterior deltoid area, palpable biceps bulge PT-OP-K Range of Motion Start: 12/21/22 15:17 Freq: Status: Active Protocol: Document 12/21/22 15:18 AM (Rec: 12/21/22 17:23 AM [id number]) Shoulder Goniometric Range of Motion Shoulder Left Active Shoulder ROM WFL Yes Testing Position Sitting Flexion 145 Abduction 145 Internal Rotation Behind Back (text) T11 Comments Aply T6 ER, Right Active Shoulder ROM WFL Yes Testing Position Sitting Flexion 138 Abduction 140 Internal Rotation Behind Back (text) L2 Comments Aply T3 ER, PT-OP-L Special Tests Start: 12/21/22 15:17 Freq: Status: Active Protocol: Document 12/21/22 15:18 AM (Rec: 12/21/22 17:23 AM [id number]) Special Tests Shoulder Special Tests Empty Can Test Results positive Kurt Biceps Test Results positive PT-OP-M Strength Start: 12/21/22 15:17 Freq: Status: Active Protocol: Document 12/21/22 15:18 AM (Rec: 12/21/22 17:23 AM [id number]) Shoulder Strength Shoulder Manual Muscle Testing Right Flexion 4 Good Abduction (C5) 4- Good- External Rotation 4+ Good+ Internal Rotation 4+ Good+ Left Flexion 5 Normal Abduction (C5) 5 Normal External Rotation 5 Normal Internal Rotation 5 Normal Elbow/Forearm Strength Elbow and Forearm Manual Muscle Testing Right Flexion (C6) 4 Good Extension (C7) 4+ Good+ Left Flexion (C6) 5 Normal Extension (C7) 5 Normal PT-OP-Q Treatments Start: 12/21/22 15:17 Freq: Status: Active Protocol: Document 12/28/22 12:22 AM (Rec: 12/28/22 13:53 AM [id number]) Cardio Equipment Upper Body Ergometer (UBE) Duration (Minutes) 5 RPM 60 Seat Position 13 Therapeutic Exercises Standing Exercises Wrist flexor stretch Side bilateral Reps/Minutes x30 sec Shoulder extension Standing Exercise Name Elroy UE ext Resistance 10# Equipment Used cable machine Reps/Minutes x10 Row Standing Exercise Name Elroy UE row Side bilateral Resistance 10# Equipment Used cable machine Reps/Minutes x15 Shoulder press Standing Exercise Name Shoulder press Side bilateral Resistance 1# Reps/Minutes 2x10 Resisted shoulder flexion Standing Exercise Name Resisted flexion Side bilateral Equipment Used 1# Reps/Minutes 2x10 3-way biceps Standing Exercise Name 3-way biceps Side right Resistance 2# Reps/Minutes 2x10 Resisted abduction Standing Exercise Name Resisted scaption Side right Resistance 1# Reps/Minutes 2x10 Manual Therapy Treatment Soft Tissue Mobilization R biceps Body Location R biceps, deltoids Mobilization Type Myofascial Release,Rolling Intensity/Depth Moderate Body Position Supine PT-OP-T Assessment and Plan Start: 12/21/22 15:17 Freq: Status: Active Protocol: Document 12/28/22 12:22 AM (Rec: 12/28/22 13:53 AM [id number]) Physical Therapy Assessment Impairments Impairments Activity Tolerance,Functional Activities,Pain,ROM,Soft Tissue Mobility,Strength Goals Strength Impairment Pt with 4- biceps and abduction strength Residential Goal (LTG) Pt with 4/5 strength at biceps and shoulder abduction LTG Duration 01/18/23 Golf Impairment Pt concerned about being able to swing a golf club. Wire Drawing Die Maker Goal (LTG) Pt able to chip and putt without increase in R shoulder pain LTG Duration 01/18/23 HEP Impairment Pt unsure of appropriate R shoulder exercises Wire Drawing Die Maker Goal (LTG) Pt independent with HEP LTG Duration 01/18/23 Quick Dash Impairment Pt with Quick Dash score of 22 .7% disability Residential Goal (LTG) Pt with Quick Dash score of < 15% disability LTG Duration 01/18/23 Assessment Summary Assessment Pt tolerated PRE well, though reported some fatigue at R UE. Pt with reported tenderness mid upper arm/biceps with STM. Pt would benefit from continued PT to gradually progress R UE strength as tolerated. Physical Therapy Plan Frequency and Duration Frequency of Treatment 2x/Week Duration of treatment (weeks) 4 Plan of Care Start Date 12/21/22 Plan of Care End Date 01/18/23 Therapeutic Interventions Therapeutic Interventions Home Exercise Program,Joint Mobilizations,Manual Therapy, Neuromuscular Re-education, Patient/Caregiver Education, Self-Care/Home Management,Soft Tissue Mobilization,Taping, Therapeutic Activities, Therapeutic Exercises Modalities Cold Pack/Ice Massage,Electric Stimulation,Hot Packs, Ultrasound Next Visit Focus/Plan Next Note Type Treatment Note Next Visit Plan Continue to progress R Shoulder strength as tolerated
--- NOTE | 2023-01-01 09:45 | PT.OTN ---
Current Diagnoses Pain in right shoulder (01/01/23) Stiffness of right hand, not elsewhere classified (01/01/23) Stiffness of left hand, not elsewhere classified (01/01/23) Physical Therapy Treatment Note PT-OP-A Visit Information Start: 12/21/22 15:17 Freq: Status: Active Protocol: Document 01/01/23 09:05 SP (Rec: 01/01/23 09:59 SP [id number]) Out-Patient Physical Therapy Visit Information Visit Information Visit Type Treatment Note Visit Start Time 09:05 Visit Stop Time 09:45 Total Visit Minutes 40 Visit Number 4 Number of TAILOR [employer]MENT [employer]TERATION Visits 1 Precautions Precautions RA PT-OP-B Current Condition Start: 12/21/22 15:17 Freq: Status: Active Protocol: Document 12/24/22 15:20 AM (Rec: 12/24/22 17:23 AM [id number]) Current Condition History of Current Condition Onset Date 1.5 months ago History of Current Condition Pt went to his rheumatoid doctor and she noticed that he had a kurt muscle on his R arm indicating torn biceps. He did not have any pain associated at the time. Pt unsure of how he tore it, though possible from lifting. Pt also reports bilateral hand cramping and spasms. Prior Treatments and Tests MRI indicating biceps tendon tear, AC arthritis, supraspinatus, infraspinatus and subscap tear, glenoid labral tear PT-OP-C Subjective Start: 12/21/22 15:17 Freq: Status: Active Protocol: Document 01/01/23 09:05 SP (Rec: 01/01/23 09:59 SP [id number]) OP-PT Subjective Patient Comments Patient Comments Pt reports his R shld was sore after last tx. He tried his exercises but continued to be sore so stopped to allow recovery. He reports better today. PT-OP-J Posture/Palpation/Skin Start: 12/21/22 15:17 Freq: Status: Active Protocol: Document 12/21/22 15:18 AM (Rec: 12/21/22 17:23 AM [id number]) Posture Evaluation Position Sitting Head/C-Spine Posture Forward Head Shoulder Posture (L) Forward,(R) Forward Palpation Assessment Location R shoulder Palpation Location Tenderness at posterior deltoid area, palpable biceps bulge PT-OP-K Range of Motion Start: 12/21/22 15:17 Freq: Status: Active Protocol: Document 12/21/22 15:18 AM (Rec: 12/21/22 17:23 AM [id number]) Shoulder Goniometric Range of Motion Shoulder Left Active Shoulder ROM WFL Yes Testing Position Sitting Flexion 145 Abduction 145 Internal Rotation Behind Back (text) T11 Comments Aply T6 ER, Right Active Shoulder ROM WFL Yes Testing Position Sitting Flexion 138 Abduction 140 Internal Rotation Behind Back (text) L2 Comments Aply T3 ER, PT-OP-L Special Tests Start: 12/21/22 15:17 Freq: Status: Active Protocol: Document 12/21/22 15:18 AM (Rec: 12/21/22 17:23 AM [id number]) Special Tests Shoulder Special Tests Empty Can Test Results positive Kurt Biceps Test Results positive PT-OP-M Strength Start: 12/21/22 15:17 Freq: Status: Active Protocol: Document 12/21/22 15:18 AM (Rec: 12/21/22 17:23 AM [id number]) Shoulder Strength Shoulder Manual Muscle Testing Right Flexion 4 Good Abduction (C5) 4- Good- External Rotation 4+ Good+ Internal Rotation 4+ Good+ Left Flexion 5 Normal Abduction (C5) 5 Normal External Rotation 5 Normal Internal Rotation 5 Normal Elbow/Forearm Strength Elbow and Forearm Manual Muscle Testing Right Flexion (C6) 4 Good Extension (C7) 4+ Good+ Left Flexion (C6) 5 Normal Extension (C7) 5 Normal PT-OP-Q Treatments Start: 12/21/22 15:17 Freq: Status: Active Protocol: Document 01/01/23 09:05 SP (Rec: 01/01/23 09:59 SP [id number]) Cardio Equipment Upper Body Ergometer (UBE) Duration (Minutes) 6 RPM 60 Seat Position 13 Height 3 Other good feedback: f/b 1 min alternating Therapeutic Exercises Sidelying Exercises R shld ABD Sidelying Exercise Name in PT Side right Equipment Used cued slight Serr Press to allow inf glide GH mid range- litdiscomf but impr Reps/Minutes x8 reps Comments AAROM with manual, weak rhomboid/SA/LT Standing Exercises FF AAROM Stretch Standing Exercise Name initiated in PT: FF/Mod Scaption Equipment Used R doorway stretch Reps/Minutes 20SH x3 Comments good feedback pec stretch UE OH standing long arm pull down Standing Exercise Name cable Side bilateral Resistance 2# Reps/Minutes x20 Comments good feedback- cued elbow extension Shoulder extension Standing Exercise Name Elroy UE ext Side bilateral Resistance 10# Equipment Used cable machine Reps/Minutes x20 Comments cued rhomboid fac/elongated posture Row Standing Exercise Name Elroy UE row Side bilateral Resistance 10# Equipment Used cable machine Reps/Minutes x20 Comments good muscle tiring- tactile cue rhomboid Resisted shoulder flexion Standing Exercise Name Resisted forward flexion Side bilateral Resistance 1#> 2# DB Equipment Used front mirror Reps/Minutes x15 1#, x10 2# Comments cued chest lift/rhomboid fac- better form with resistance 3-way biceps Standing Exercise Name 3-way biceps (sup/pron/thumb up, add 30 ER palm up) Side right Resistance 2# Reps/Minutes x10 reps each Comments good form Resisted abduction Standing Exercise Name Resisted scaption Side right Resistance 1#> 2#DB Equipment Used front mirror Reps/Minutes 2x10 Manual Therapy Treatment Soft Tissue Mobilization R biceps Body Location R biceps, deltoids Mobilization Type Myofascial Release,Rolling Intensity/Depth Moderate Body Position Supine Joint Mobilizations R scapulothoracic Comments retraction/depression MWM during ABD PT-OP-T Assessment and Plan Start: 12/21/22 15:17 Freq: Status: Active Protocol: Document 01/01/23 09:05 SP (Rec: 01/01/23 09:59 SP [id number]) Physical Therapy Assessment Goals Strength Impairment Pt with 4- biceps and abduction strength Grain Merchandiser Goal (LTG) Pt with 4/5 strength at biceps and shoulder abduction LTG Duration 01/18/23 Golf Impairment Pt concerned about being able to swing a golf club. [facility] Goal (LTG) Pt able to chip and putt without increase in R shoulder pain LTG Duration 01/18/23 HEP Impairment Pt unsure of appropriate R shoulder exercises Grain Merchandiser Goal (LTG) Pt independent with HEP LTG Duration 01/18/23 Quick Dash Impairment Pt with Quick Dash score of 22 .7% disability Grain Merchandiser Goal (LTG) Pt with Quick Dash score of < 15% disability LTG Duration 01/18/23 Assessment Summary Assessment Pt good feedback AAROM doorway stretch FF OH today, declined HOs. Tactile/verbal cues for R inferior GH and scapular glide retraction/retraction/ UR for ABD into AA>AROM, noted weakness deltoid/ supraspinatus, improved post manual ed/assist. Improved rhomboid and LT engagement during ther ex today. Physical Therapy Plan Frequency and Duration Frequency of Treatment 2x/Week Duration of treatment (weeks) 4 Plan of Care Start Date 12/21/22 Plan of Care End Date 01/18/23 Therapeutic Interventions Therapeutic Interventions Home Exercise Program,Joint Mobilizations,Manual Therapy, Neuromuscular Re-education, Patient/Caregiver Education, Self-Care/Home Management,Soft Tissue Mobilization,Taping, Therapeutic Activities, Therapeutic Exercises Modalities Cold Pack/Ice Massage,Electric Stimulation,Hot Packs, Ultrasound Next Visit Focus/Plan Next Note Type Treatment Note Next Visit Plan Continue scapular ROM, SA/LT/ Rhomboid strengthening to allow strength for RUE strengthening against gravity. POC: Continue to progress R Shoulder strength as tolerated
--- NOTE | 2023-01-05 09:03 | PT.OTN ---
Current Diagnoses Pain in right shoulder (01/05/23) Stiffness of right hand, not elsewhere classified (01/05/23) Stiffness of left hand, not elsewhere classified (01/05/23) Physical Therapy Treatment Note PT-OP-A Visit Information Start: 12/21/22 15:17 Freq: Status: Active Protocol: Document 01/05/23 09:03 AM (Rec: 01/05/23 09:49 AM [id number]) Out-Patient Physical Therapy Visit Information Visit Information Visit Type Treatment Note Visit Start Time 09:03 Visit Stop Time 09:43 Total Visit Minutes 40 Visit Number 5 Number of PUBLIC HEALTH TECHNOLOGIST Visits 1 Precautions Precautions RA PT-OP-B Current Condition Start: 12/21/22 15:17 Freq: Status: Active Protocol: Document 12/24/22 15:20 AM (Rec: 12/24/22 17:23 AM [id number]) Current Condition History of Current Condition Onset Date 1.5 months ago History of Current Condition Pt went to his rheumatoid doctor and she noticed that he had a kurt muscle on his R arm indicating torn biceps. He did not have any pain associated at the time. Pt unsure of how he tore it, though possible from lifting. Pt also reports bilateral hand cramping and spasms. Prior Treatments and Tests MRI indicating biceps tendon tear, AC arthritis, supraspinatus, infraspinatus and subscap tear, glenoid labral tear PT-OP-C Subjective Start: 12/21/22 15:17 Freq: Status: Active Protocol: Document 01/05/23 09:03 AM (Rec: 01/05/23 09:49 AM [id number]) OP-PT Subjective Patient Comments Patient Comments Pt reports R shoulder continues to be sore today. He feels that the wall slide has been helpful. PT-OP-J Posture/Palpation/Skin Start: 12/21/22 15:17 Freq: Status: Active Protocol: Document 12/21/22 15:18 AM (Rec: 12/21/22 17:23 AM [id number]) Posture Evaluation Position Sitting Head/C-Spine Posture Forward Head Shoulder Posture (L) Forward,(R) Forward Palpation Assessment Location R shoulder Palpation Location Tenderness at posterior deltoid area, palpable biceps bulge PT-OP-K Range of Motion Start: 12/21/22 15:17 Freq: Status: Active Protocol: Document 12/21/22 15:18 AM (Rec: 12/21/22 17:23 AM [id number]) Shoulder Goniometric Range of Motion Shoulder Left Active Shoulder ROM WFL Yes Testing Position Sitting Flexion 145 Abduction 145 Internal Rotation Behind Back (text) T11 Comments Aply T6 ER, Right Active Shoulder ROM WFL Yes Testing Position Sitting Flexion 138 Abduction 140 Internal Rotation Behind Back (text) L2 Comments Aply T3 ER, PT-OP-L Special Tests Start: 12/21/22 15:17 Freq: Status: Active Protocol: Document 12/21/22 15:18 AM (Rec: 12/21/22 17:23 AM [id number]) Special Tests Shoulder Special Tests Empty Can Test Results positive Kurt Biceps Test Results positive PT-OP-M Strength Start: 12/21/22 15:17 Freq: Status: Active Protocol: Document 12/21/22 15:18 AM (Rec: 12/21/22 17:23 AM [id number]) Shoulder Strength Shoulder Manual Muscle Testing Right Flexion 4 Good Abduction (C5) 4- Good- External Rotation 4+ Good+ Internal Rotation 4+ Good+ Left Flexion 5 Normal Abduction (C5) 5 Normal External Rotation 5 Normal Internal Rotation 5 Normal Elbow/Forearm Strength Elbow and Forearm Manual Muscle Testing Right Flexion (C6) 4 Good Extension (C7) 4+ Good+ Left Flexion (C6) 5 Normal Extension (C7) 5 Normal PT-OP-Q Treatments Start: 12/21/22 15:17 Freq: Status: Active Protocol: Document 01/05/23 09:03 AM (Rec: 01/05/23 09:49 AM [id number]) Cardio Equipment Upper Body Ergometer (UBE) Duration (Minutes) 6 RPM 60 Seat Position 13 Height 3 Other fwd/back split Therapeutic Exercises Prone Exercises Row Prone Exercise Name Row Side right Reps/Minutes 2x10 Comments tactile cues for scapular contrl Shoulder extension Side right Reps/Minutes 2x10 Comments tactile cues for scapular control Sidelying Exercises R shld ABD Sidelying Exercise Name R shoulder Iso with rhythmic stab Side right Comments AROM with painful today Standing Exercises wall slide Side right Reps/Minutes x10 Manual Therapy Treatment Soft Tissue Mobilization R biceps Body Location R biceps, deltoids Mobilization Type Myofascial Release,Rolling Intensity/Depth Moderate Body Position Supine Joint Mobilizations R shoulder Joint glenohumeral Direction S-I Comments with shoulder abduction Manual Techniques Shouler PROM Type R shoulder PROM Comments all directions PT-OP-T Assessment and Plan Start: 12/21/22 15:17 Freq: Status: Active Protocol: Document 01/05/23 09:03 AM (Rec: 01/05/23 09:49 AM [id number]) Physical Therapy Assessment Goals Strength Impairment Pt with 4- biceps and abduction strength Intermediate Goal (LTG) Pt with 4/5 strength at biceps and shoulder abduction LTG Duration 01/18/23 Golf Impairment Pt concerned about being able to swing a golf club. Motor Setter Goal (LTG) Pt able to chip and putt without increase in R shoulder pain LTG Duration 01/18/23 HEP Impairment Pt unsure of appropriate R shoulder exercises Intermediate Goal (LTG) Pt independent with HEP LTG Duration 01/18/23 Quick Dash Impairment Pt with Quick Dash score of 22 .7% disability Intermediate Goal (LTG) Pt with Quick Dash score of < 15% disability LTG Duration 01/18/23 Assessment Summary Assessment Pt with increased irritability at shoulder today, therefore focused more on PROM, mobs and STM today. Pt with reduction in shoulder discomfort with MWM. Pt required cueing for scapular control with prone exercises. Pt would benefit from continued PT to progress shoulder girdle strength as tolerated. Physical Therapy Plan Frequency and Duration Frequency of Treatment 2x/Week Duration of treatment (weeks) 4 Plan of Care Start Date 12/21/22 Plan of Care End Date 01/18/23 Therapeutic Interventions Therapeutic Interventions Home Exercise Program,Joint Mobilizations,Manual Therapy, Neuromuscular Re-education, Patient/Caregiver Education, Self-Care/Home Management,Soft Tissue Mobilization,Taping, Therapeutic Activities, Therapeutic Exercises Modalities Cold Pack/Ice Massage,Electric Stimulation,Hot Packs, Ultrasound Next Visit Focus/Plan Next Note Type Treatment Note Next Visit Plan Continue scapular ROM, SA/LT/ Rhomboid strengthening to allow strength for RUE strengthening against gravity. POC: Continue to progress R Shoulder strength as tolerated
--- NOTE | 2023-01-07 09:03 | PT.OTN ---
Current Diagnoses Pain in right shoulder (01/07/23) Stiffness of right hand, not elsewhere classified (01/07/23) Stiffness of left hand, not elsewhere classified (01/07/23) Physical Therapy Treatment Note PT-OP-A Visit Information Start: 12/21/22 15:17 Freq: Status: Active Protocol: Document 01/07/23 09:03 AM (Rec: 01/07/23 10:00 AM [id number]) Out-Patient Physical Therapy Visit Information Visit Information Visit Type Treatment Note Visit Start Time 09:03 Visit Stop Time 09:46 Total Visit Minutes 43 Visit Number 6 Number of AMPHIBIAN CREWMEMBER Visits 1 Precautions Precautions RA PT-OP-B Current Condition Start: 12/21/22 15:17 Freq: Status: Active Protocol: Document 12/24/22 15:20 AM (Rec: 12/24/22 17:23 AM [id number]) Current Condition History of Current Condition Onset Date 1.5 months ago History of Current Condition Pt went to his rheumatoid doctor and she noticed that he had a kurt muscle on his R arm indicating torn biceps. He did not have any pain associated at the time. Pt unsure of how he tore it, though possible from lifting. Pt also reports bilateral hand cramping and spasms. Prior Treatments and Tests MRI indicating biceps tendon tear, AC arthritis, supraspinatus, infraspinatus and subscap tear, glenoid labral tear PT-OP-C Subjective Start: 12/21/22 15:17 Freq: Status: Active Protocol: Document 01/07/23 09:03 AM (Rec: 01/07/23 10:00 AM [id number]) OP-PT Subjective Patient Comments Patient Comments Pt reports that his shoulder is feeling better, though abduction continues to be sore . PT-OP-J Posture/Palpation/Skin Start: 12/21/22 15:17 Freq: Status: Active Protocol: Document 12/21/22 15:18 AM (Rec: 12/21/22 17:23 AM [id number]) Posture Evaluation Position Sitting Head/C-Spine Posture Forward Head Shoulder Posture (L) Forward,(R) Forward Palpation Assessment Location R shoulder Palpation Location Tenderness at posterior deltoid area, palpable biceps bulge PT-OP-K Range of Motion Start: 12/21/22 15:17 Freq: Status: Active Protocol: Document 12/21/22 15:18 AM (Rec: 12/21/22 17:23 AM [id number]) Shoulder Goniometric Range of Motion Shoulder Left Active Shoulder ROM WFL Yes Testing Position Sitting Flexion 145 Abduction 145 Internal Rotation Behind Back (text) T11 Comments Aply T6 ER, Right Active Shoulder ROM WFL Yes Testing Position Sitting Flexion 138 Abduction 140 Internal Rotation Behind Back (text) L2 Comments Aply T3 ER, PT-OP-L Special Tests Start: 12/21/22 15:17 Freq: Status: Active Protocol: Document 12/21/22 15:18 AM (Rec: 12/21/22 17:23 AM [id number]) Special Tests Shoulder Special Tests Empty Can Test Results positive Kurt Biceps Test Results positive PT-OP-M Strength Start: 12/21/22 15:17 Freq: Status: Active Protocol: Document 12/21/22 15:18 AM (Rec: 12/21/22 17:23 AM [id number]) Shoulder Strength Shoulder Manual Muscle Testing Right Flexion 4 Good Abduction (C5) 4- Good- External Rotation 4+ Good+ Internal Rotation 4+ Good+ Left Flexion 5 Normal Abduction (C5) 5 Normal External Rotation 5 Normal Internal Rotation 5 Normal Elbow/Forearm Strength Elbow and Forearm Manual Muscle Testing Right Flexion (C6) 4 Good Extension (C7) 4+ Good+ Left Flexion (C6) 5 Normal Extension (C7) 5 Normal PT-OP-Q Treatments Start: 12/21/22 15:17 Freq: Status: Active Protocol: Document 01/07/23 09:03 AM (Rec: 01/07/23 10:00 AM [id number]) Cardio Equipment Upper Body Ergometer (UBE) Duration (Minutes) 6 RPM 60 Seat Position 13 Height 3 Other fwd/back split Therapeutic Exercises Supine Exercises Ceiling punch Reps/Minutes 2x10 Comments for serratus activation Prone Exercises Row Prone Exercise Name Row Side right Resistance 1# Reps/Minutes 2x10 Comments tactile cues for scapular contrl Shoulder extension Side right Resistance 1# Reps/Minutes 2x10 Comments tactile cues for scapular control Sidelying Exercises R shld ABD Sidelying Exercise Name R shoulder Iso with rhythmic stab Side right Comments AROM with painful today Standing Exercises wall slide Side right Reps/Minutes x10 Shoulder extension Standing Exercise Name Elroy UE ext Side bilateral Resistance 10# Equipment Used cable machine Reps/Minutes x20 Comments cued rhomboid fac/elongated posture Row Standing Exercise Name Elroy UE row Side bilateral Resistance 10# Equipment Used cable machine Reps/Minutes x20 Comments good muscle tiring- tactile cue rhomboid Resisted abduction Standing Exercise Name AAROM Reps/Minutes x10 Manual Therapy Treatment Soft Tissue Mobilization R biceps Body Location R biceps, deltoids Mobilization Type Myofascial Release,Rolling Intensity/Depth Moderate Body Position Supine Joint Mobilizations R shoulder Joint glenohumeral Direction S-I Comments with shoulder abduction Manual Techniques Shouler PROM Type R shoulder PROM Comments all directions PT-OP-T Assessment and Plan Start: 12/21/22 15:17 Freq: Status: Active Protocol: Document 01/07/23 09:03 AM (Rec: 01/07/23 10:00 AM [id number]) Physical Therapy Assessment Goals Strength Impairment Pt with 4- biceps and abduction strength Group Home Goal (LTG) Pt with 4/5 strength at biceps and shoulder abduction LTG Duration 01/18/23 Golf Impairment Pt concerned about being able to swing a golf club. Product Safety Expert Goal (LTG) Pt able to chip and putt without increase in R shoulder pain LTG Duration 01/18/23 HEP Impairment Pt unsure of appropriate R shoulder exercises Group Home Goal (LTG) Pt independent with HEP LTG Duration 01/18/23 Quick Dash Impairment Pt with Quick Dash score of 22 .7% disability Group Home Goal (LTG) Pt with Quick Dash score of < 15% disability LTG Duration 01/18/23 Assessment Summary Assessment Pt with improved tolerance to shoulder abduction with AAROM using dowel. Pt requires tactile cueing for scapular control. Pt with tendernes along deltoid muscles. Pt would benefit from continued PT to progress shoulder girdle strength as tolerated. Physical Therapy Plan Frequency and Duration Frequency of Treatment 2x/Week Duration of treatment (weeks) 4 Plan of Care Start Date 12/21/22 Plan of Care End Date 01/18/23 Therapeutic Interventions Therapeutic Interventions Home Exercise Program,Joint Mobilizations,Manual Therapy, Neuromuscular Re-education, Patient/Caregiver Education, Self-Care/Home Management,Soft Tissue Mobilization,Taping, Therapeutic Activities, Therapeutic Exercises Modalities Cold Pack/Ice Massage,Electric Stimulation,Hot Packs, Ultrasound Next Visit Focus/Plan Next Note Type Treatment Note Next Visit Plan Continue scapular ROM, SA/LT/ Rhomboid strengthening to allow strength for RUE strengthening against gravity. POC: Continue to progress R Shoulder strength as tolerated
--- NOTE | 2023-01-11 08:17 | PT.OTN ---
Current Diagnoses Pain in right shoulder (01/11/23) Stiffness of right hand, not elsewhere classified (01/11/23) Stiffness of left hand, not elsewhere classified (01/11/23) Physical Therapy Treatment Note PT-OP-A Visit Information Start: 12/21/22 15:17 Freq: Status: Active Protocol: Document 01/11/23 07:32 SP (Rec: 01/11/23 08:18 SP [id number]) Out-Patient Physical Therapy Visit Information Visit Information Visit Type Treatment Note Visit Start Time 07:32 Visit Stop Time 08:17 Total Visit Minutes 45 Visit Number 7 Number of BOOKBINDER APPRENTICE Visits 2 Precautions Precautions RA PT-OP-B Current Condition Start: 12/21/22 15:17 Freq: Status: Active Protocol: Document 12/24/22 15:20 AM (Rec: 12/24/22 17:23 AM [id number]) Current Condition History of Current Condition Onset Date 1.5 months ago History of Current Condition Pt went to his rheumatoid doctor and she noticed that he had a kurt muscle on his R arm indicating torn biceps. He did not have any pain associated at the time. Pt unsure of how he tore it, though possible from lifting. Pt also reports bilateral hand cramping and spasms. Prior Treatments and Tests MRI indicating biceps tendon tear, AC arthritis, supraspinatus, infraspinatus and subscap tear, glenoid labral tear PT-OP-C Subjective Start: 12/21/22 15:17 Freq: Status: Active Protocol: Document 01/11/23 07:32 SP (Rec: 01/11/23 08:18 SP [id number]) OP-PT Subjective Patient Comments Patient Comments Pt reports still there. He reports really enjoying the opportunity with using resisted cable for progression in strengthening vs last PT place was at. PT-OP-J Posture/Palpation/Skin Start: 12/21/22 15:17 Freq: Status: Active Protocol: Document 12/21/22 15:18 AM (Rec: 12/21/22 17:23 AM [id number]) Posture Evaluation Position Sitting Head/C-Spine Posture Forward Head Shoulder Posture (L) Forward,(R) Forward Palpation Assessment Location R shoulder Palpation Location Tenderness at posterior deltoid area, palpable biceps bulge PT-OP-K Range of Motion Start: 12/21/22 15:17 Freq: Status: Active Protocol: Document 12/21/22 15:18 AM (Rec: 12/21/22 17:23 AM [id number]) Shoulder Goniometric Range of Motion Shoulder Left Active Shoulder ROM WFL Yes Testing Position Sitting Flexion 145 Abduction 145 Internal Rotation Behind Back (text) T11 Comments Aply T6 ER, Right Active Shoulder ROM WFL Yes Testing Position Sitting Flexion 138 Abduction 140 Internal Rotation Behind Back (text) L2 Comments Aply T3 ER, PT-OP-L Special Tests Start: 12/21/22 15:17 Freq: Status: Active Protocol: Document 12/21/22 15:18 AM (Rec: 12/21/22 17:23 AM [id number]) Special Tests Shoulder Special Tests Empty Can Test Results positive Kurt Biceps Test Results positive PT-OP-M Strength Start: 12/21/22 15:17 Freq: Status: Active Protocol: Document 12/21/22 15:18 AM (Rec: 12/21/22 17:23 AM [id number]) Shoulder Strength Shoulder Manual Muscle Testing Right Flexion 4 Good Abduction (C5) 4- Good- External Rotation 4+ Good+ Internal Rotation 4+ Good+ Left Flexion 5 Normal Abduction (C5) 5 Normal External Rotation 5 Normal Internal Rotation 5 Normal Elbow/Forearm Strength Elbow and Forearm Manual Muscle Testing Right Flexion (C6) 4 Good Extension (C7) 4+ Good+ Left Flexion (C6) 5 Normal Extension (C7) 5 Normal PT-OP-Q Treatments Start: 12/21/22 15:17 Freq: Status: Active Protocol: Document 01/11/23 07:32 SP (Rec: 01/11/23 08:18 SP [id number]) Cardio Equipment Upper Body Ergometer (UBE) Duration (Minutes) 6 RPM 60 Seat Position 11 Height 3.5 Other fwd/back split Therapeutic Exercises Supine Exercises FF Supine Exercise Name initiated Side bilateral Resistance AROM> 2# DB Equipment Used LUE less range than R Reps/Minutes x10 Comments cued TA/PPT/NS- no arch LB Ceiling punch Supine Exercise Name for serratus activation Side bilateral Resistance AROM> 2# DB Reps/Minutes 2x10 Comments good form and painfree with 2# DB Prone Exercises Row Prone Exercise Name Row Side right Resistance 1#>2# DB Reps/Minutes 2x10 Comments tactile cues for scapular contrl Shoulder extension Side right Resistance 1#> 2# DB Reps/Minutes 2x10 Comments tactile cues for scapular control Sidelying Exercises R shld ABD Sidelying Exercise Name R shoulder Side right Resistance AROM Reps/Minutes x5 reps Comments improved ROM with cues IR and serratus press approx 100 deg- less discomfor Standing Exercises self STMs Standing Exercise Name ball wall: UT, rhomboid Side right Reps/Minutes 1 min total Comments good feedback self massage for home application R shld IR Standing Exercise Name measured T1 Side right FF AAROM Stretch Standing Exercise Name added to HEP: FF/Mod ScaptionABD Side bilateral Equipment Used R doorway stretch Reps/Minutes 5 breath hold Comments good feedback pec stretch UE OH- gain ROM Shoulder extension Standing Exercise Name Elroy UE ext Side bilateral Resistance 10# Equipment Used cable machine Reps/Minutes 2x20 Comments cued rhomboid fac/elongated posture Row Standing Exercise Name Elroy UE row Side bilateral Resistance 10# Equipment Used cable machine Reps/Minutes 2x20 Comments good muscle tiring- tactile cue rhomboid Resisted abduction Standing Exercise Name AAROM on wall- improved ROM Equipment Used use mirror for self correction trunk alignment awareness Reps/Minutes x10 Comments cued for trunk alignment perpendicular to wall, improved less UT recruit Manual Therapy Treatment Joint Mobilizations R scapulothoracic Comments tactile cues and manual fac scapular glide infer/ UR with AAROM ABD PT-OP-T Assessment and Plan Start: 12/21/22 15:17 Freq: Status: Active Protocol: Document 01/11/23 07:32 SP (Rec: 01/11/23 08:18 SP [id number]) Physical Therapy Assessment Goals Strength Impairment Pt with 4- biceps and abduction strength Nursing Home Goal (LTG) Pt with 4/5 strength at biceps and shoulder abduction LTG Duration 01/18/23 Golf Impairment Pt concerned about being able to swing a golf club. Hospice/Home Health Aide Goal (LTG) Pt able to chip and putt without increase in R shoulder pain LTG Duration 01/18/23 HEP Impairment Pt unsure of appropriate R shoulder exercises Nursing Home Goal (LTG) Pt independent with HEP LTG Duration 01/18/23 Quick Dash Impairment Pt with Quick Dash score of 22 .7% disability Hospice/Home Health Aide Goal (LTG) Pt with Quick Dash score of < 15% disability LTG Duration 01/18/23 Assessment Summary Assessment Pt tolerated increase resistance to prone RUE row/ shld ext, occasional tactile/ vcs for rhomboid and LT recruitment to decrease UT compensations. Good feedback response to self massage use of racquetball to post scap on wall for decrease muscle tension reports. Good self AAROM use of wall walking on corner wall for progress at home, used mirror with improved self awareness corrections of trunk and decrease UT recruitment compensations. He stated FF last time seen has helped on gaining ROM to reach OH more. Physical Therapy Plan Frequency and Duration Frequency of Treatment 2x/Week Duration of treatment (weeks) 4 Plan of Care Start Date 12/21/22 Plan of Care End Date 01/18/23 Therapeutic Interventions Therapeutic Interventions Home Exercise Program,Joint Mobilizations,Manual Therapy, Neuromuscular Re-education, Patient/Caregiver Education, Self-Care/Home Management,Soft Tissue Mobilization,Taping, Therapeutic Activities, Therapeutic Exercises Modalities Cold Pack/Ice Massage,Electric Stimulation,Hot Packs, Ultrasound Next Visit Focus/Plan Next Note Type Treatment Note Next Visit Plan add pull down, AAROM OH. add HOs ex last tx. Continue scapular ROM, SA/LT/ Rhomboid strengthening to allow strength for RUE strengthening against gravity. POC: Continue to progress R Shoulder strength as tolerated
--- NOTE | 2023-01-14 08:20 | PT.OTN ---
Current Diagnoses Pain in right shoulder (01/14/23) Stiffness of right hand, not elsewhere classified (01/14/23) Stiffness of left hand, not elsewhere classified (01/14/23) Physical Therapy Treatment Note PT-OP-A Visit Information Start: 12/21/22 15:17 Freq: Status: Active Protocol: Document 01/14/23 07:31 SP (Rec: 01/14/23 08:38 SP [id number]) Out-Patient Physical Therapy Visit Information Visit Information Visit Type Treatment Note Visit Start Time 07:31 Visit Stop Time 08:20 Total Visit Minutes 49 Visit Number 8 Number of DIRECTOR STATE PHARMACY Visits 3 Precautions Precautions RA PT-OP-B Current Condition Start: 12/21/22 15:17 Freq: Status: Active Protocol: Document 12/24/22 15:20 AM (Rec: 12/24/22 17:23 AM [id number]) Current Condition History of Current Condition Onset Date 1.5 months ago History of Current Condition Pt went to his rheumatoid doctor and she noticed that he had a kurt muscle on his R arm indicating torn biceps. He did not have any pain associated at the time. Pt unsure of how he tore it, though possible from lifting. Pt also reports bilateral hand cramping and spasms. Prior Treatments and Tests MRI indicating biceps tendon tear, AC arthritis, supraspinatus, infraspinatus and subscap tear, glenoid labral tear PT-OP-C Subjective Start: 12/21/22 15:17 Freq: Status: Active Protocol: Document 01/14/23 07:31 SP (Rec: 01/14/23 08:38 SP [id number]) OP-PT Subjective Patient Comments Patient Comments Pt brought pic of his [employer]! machine at home for progression in exercise and wanting to know how can use it to compliment his HEP. ALso has adjustable DBs 5 #& 8#. PT-OP-J Posture/Palpation/Skin Start: 12/21/22 15:17 Freq: Status: Active Protocol: Document 12/21/22 15:18 AM (Rec: 12/21/22 17:23 AM [id number]) Posture Evaluation Position Sitting Head/C-Spine Posture Forward Head Shoulder Posture (L) Forward,(R) Forward Palpation Assessment Location R shoulder Palpation Location Tenderness at posterior deltoid area, palpable biceps bulge PT-OP-K Range of Motion Start: 12/21/22 15:17 Freq: Status: Active Protocol: Document 12/21/22 15:18 AM (Rec: 12/21/22 17:23 AM [id number]) Shoulder Goniometric Range of Motion Shoulder Left Active Shoulder ROM WFL Yes Testing Position Sitting Flexion 145 Abduction 145 Internal Rotation Behind Back (text) T11 Comments Aply T6 ER, Right Active Shoulder ROM WFL Yes Testing Position Sitting Flexion 138 Abduction 140 Internal Rotation Behind Back (text) L2 Comments Aply T3 ER, PT-OP-L Special Tests Start: 12/21/22 15:17 Freq: Status: Active Protocol: Document 12/21/22 15:18 AM (Rec: 12/21/22 17:23 AM [id number]) Special Tests Shoulder Special Tests Empty Can Test Results positive Kurt Biceps Test Results positive PT-OP-M Strength Start: 12/21/22 15:17 Freq: Status: Active Protocol: Document 12/21/22 15:18 AM (Rec: 12/21/22 17:23 AM [id number]) Shoulder Strength Shoulder Manual Muscle Testing Right Flexion 4 Good Abduction (C5) 4- Good- External Rotation 4+ Good+ Internal Rotation 4+ Good+ Left Flexion 5 Normal Abduction (C5) 5 Normal External Rotation 5 Normal Internal Rotation 5 Normal Elbow/Forearm Strength Elbow and Forearm Manual Muscle Testing Right Flexion (C6) 4 Good Extension (C7) 4+ Good+ Left Flexion (C6) 5 Normal Extension (C7) 5 Normal PT-OP-Q Treatments Start: 12/21/22 15:17 Freq: Status: Active Protocol: Document 01/14/23 07:31 SP (Rec: 01/14/23 08:38 SP [id number]) Cardio Equipment Upper Body Ergometer (UBE) Duration (Minutes) 6 RPM 60 Seat Position 11 Height 3.5 Other fwd/back split Gym Equipment Cable Column (Body Solid) Lat Pull Down Details slow OH stretch return Resistance 30 lbs Reps/Time 2x15 Other- 2 Details Cable cross body punch Resistance 10 lbs (not able do 01/14) Reps/Time 2x10 reps Other- 1 Details Row: stand & seated (chair front machine) Resistance 20 lbs stand, 30lbs seated Reps/Time 2x15 each Therapeutic Exercises Sitting Exercises AAROM TB Sitting Exercise Name added to HEP: FF, ABD Side right Resistance GTB Equipment Used Chair: rear and side/angle face away Reps/Minutes 2x15 reps Comments good assisted ROM and eccentric control Standing Exercises golf swing Standing Exercise Name trialed to get back to Resistance Blue TB Equipment Used L swing Reps/Minutes x15 reps throw/ecc control Standing Exercise Name added to HEP (abd/ER eccentric ) Side right Resistance Mora TB Reps/Minutes 2x10 Comments cued trunk alignment, slow eccentric ABD/ER stretch standing long arm pull down Standing Exercise Name cable Side bilateral Resistance 20# Reps/Minutes x20 Comments good form, cued soft knee PT-OP-T Assessment and Plan Start: 12/21/22 15:17 Freq: Status: Active Protocol: Document 01/14/23 07:31 SP (Rec: 01/14/23 08:38 SP [id number]) Physical Therapy Assessment Goals Strength Impairment Pt with 4- biceps and abduction strength Operations And Maintenance Supervisor Goal (LTG) Pt with 4/5 strength at biceps and shoulder abduction LTG Duration 01/18/23 Golf Impairment Pt concerned about being able to swing a golf club. Operations And Maintenance Supervisor Goal (LTG) Pt able to chip and putt without increase in R shoulder pain LTG Duration 01/18/23 HEP Impairment Pt unsure of appropriate R shoulder exercises Operations And Maintenance Supervisor Goal (LTG) Pt independent with HEP LTG Duration 01/18/23 Quick Dash Impairment Pt with Quick Dash score of 22 .7% disability Operations And Maintenance Supervisor Goal (LTG) Pt with Quick Dash score of < 15% disability LTG Duration 01/18/23 Assessment Summary Assessment Tx time spent use cable for carryover at home, how use of TB for strength and support R shld eccentric AAROM FF/ABD/ ABD w/ ER and cuing awareness for scapular ROM with improved reduced UT recruitment for return to reaching OH, out to side and golfing activities. Continue to benefit from PT to progress ROM and strength for return to functional activities. Physical Therapy Plan Frequency and Duration Frequency of Treatment 2x/Week Duration of treatment (weeks) 4 Plan of Care Start Date 12/21/22 Plan of Care End Date 01/18/23 Therapeutic Interventions Therapeutic Interventions Home Exercise Program,Joint Mobilizations,Manual Therapy, Neuromuscular Re-education, Patient/Caregiver Education, Self-Care/Home Management,Soft Tissue Mobilization,Taping, Therapeutic Activities, Therapeutic Exercises Modalities Cold Pack/Ice Massage,Electric Stimulation,Hot Packs, Ultrasound Next Visit Focus/Plan Next Note Type Progress Note Next Visit Plan *Update POC next tx. LOok at pics of cable system home for progression. REview cable HEP: AAROM cable/TB supported, and prone/sidelying progress AROM . Continue scapular ROM, SA/LT/ Rhomboid strengthening to allow strength for RUE strengthening against gravity. POC: Continue to progress R Shoulder strength as tolerated
--- NOTE | 2023-01-18 09:49 | PT.OTN ---
Current Diagnoses Pain in right shoulder (01/18/23) Stiffness of right hand, not elsewhere classified (01/18/23) Stiffness of left hand, not elsewhere classified (01/18/23) Physical Therapy Treatment Note PT-OP-A Visit Information Start: 12/21/22 15:17 Freq: Status: Active Protocol: Document 01/18/23 09:49 AM (Rec: 01/18/23 11:31 AM [id number]) Out-Patient Physical Therapy Visit Information Visit Information Visit Type Progress Note Visit Start Time 09:49 Visit Stop Time 10:34 Total Visit Minutes 45 Visit Number 9 Number of CENTER MACHINE OPERATOR Visits 4 PT-OP-B Current Condition Start: 12/21/22 15:17 Freq: Status: Active Protocol: Document 12/24/22 15:20 AM (Rec: 12/24/22 17:23 AM [id number]) Current Condition History of Current Condition Onset Date 1.5 months ago History of Current Condition Pt went to his rheumatoid doctor and she noticed that he had a kurt muscle on his R arm indicating torn biceps. He did not have any pain associated at the time. Pt unsure of how he tore it, though possible from lifting. Pt also reports bilateral hand cramping and spasms. Prior Treatments and Tests MRI indicating biceps tendon tear, AC arthritis, supraspinatus, infraspinatus and subscap tear, glenoid labral tear PT-OP-C Subjective Start: 12/21/22 15:17 Freq: Status: Active Protocol: Document 01/18/23 09:49 AM (Rec: 01/18/23 11:31 AM [id number]) OP-PT Subjective Patient Comments Patient Comments Pt reports shoulder pain at - 05/08. Pt reports that he had vaccinations since previous session, therefore has not done the cable machines at home because of a sore shoulder. PT-OP-J Posture/Palpation/Skin Start: 12/21/22 15:17 Freq: Status: Active Protocol: Document 12/21/22 15:18 AM (Rec: 12/21/22 17:23 AM [id number]) Posture Evaluation Position Sitting Head/C-Spine Posture Forward Head Shoulder Posture (L) Forward,(R) Forward Palpation Assessment Location R shoulder Palpation Location Tenderness at posterior deltoid area, palpable biceps bulge PT-OP-K Range of Motion Start: 12/21/22 15:17 Freq: Status: Active Protocol: Document 01/18/23 09:49 AM (Rec: 01/18/23 11:31 AM [id number]) Shoulder Goniometric Range of Motion Shoulder Right Active Flexion 145 Comments Scaption 130 PT-OP-L Special Tests Start: 12/21/22 15:17 Freq: Status: Active Protocol: Document 12/21/22 15:18 AM (Rec: 12/21/22 17:23 AM [id number]) Special Tests Shoulder Special Tests Empty Can Test Results positive Kurt Biceps Test Results positive PT-OP-M Strength Start: 12/21/22 15:17 Freq: Status: Active Protocol: Document 01/18/23 09:49 AM (Rec: 01/18/23 11:31 AM [id number]) Shoulder Strength Shoulder Manual Muscle Testing Right Abduction (C5) 4- Good- Elbow/Forearm Strength Elbow and Forearm Manual Muscle Testing Right Flexion (C6) 4- Good- PT-OP-Q Treatments Start: 12/21/22 15:17 Freq: Status: Active Protocol: Document 01/18/23 09:49 AM (Rec: 01/18/23 11:31 AM [id number]) Therapeutic Exercises Prone Exercises Row Prone Exercise Name Row Side right Resistance 2# Reps/Minutes 2x10 Comments tactile cues for scapular contrl Shoulder extension Side right Resistance 2# DB Reps/Minutes 2x10 Comments tactile cues for scapular control Sidelying Exercises R shld ABD Sidelying Exercise Name R shoulder abduction iso Side right Reps/Minutes 2x30 sec Standing Exercises Dowel abduction Standing Exercise Name Dowel scaption Side right Equipment Used trekking pole Reps/Minutes x10 wall slide Standing Exercise Name wall slide Reps/Minutes x5 Manual Therapy Treatment Joint Mobilizations R shoulder Direction S-I and A-P Grade III Body Position Supine Manual Techniques Shouler PROM Type PROM all directions Body Position Supine Comments Also Pec major stretching PT-OP-T Assessment and Plan Start: 12/21/22 15:17 Freq: Status: Active Protocol: Document 01/18/23 09:49 AM (Rec: 01/18/23 11:31 AM [id number]) Physical Therapy Assessment Goals Strength Impairment Pt with 4- biceps and abduction strength Retirement Goal (LTG) Pt with 4/5 strength at biceps and shoulder abduction Progressing, not met 01/18/23 LTG Duration 02/08/23 Golf Impairment Pt concerned about being able to swing a golf club. Retirement Goal (LTG) Pt able to chip and putt without increase in R shoulder pain Goal partially met: Pt able to do golf motion with theraband resistance without production in pain. LTG Duration 02/08/23 HEP Impairment Pt unsure of appropriate R shoulder exercises Retirement Goal (LTG) Pt independent with HEP LTG Duration 02/08/23 Quick Dash Impairment Pt with Quick Dash score of 22 .7% disability Manager Material Goal (LTG) Pt with Quick Dash score of < 15% disability LTG Duration 02/08/23 Assessment Summary Assessment Pt is making progress towards goal. Pt continues to have shoulder irritability with shoulder abduction, though able to tolerate scaption AROM . Pt demonstrates superior humeral glide with abduction, though demonstrates better control with scaption position . Pt requires tactile cueing for scapular control with prone exercises. Pt would benefit from continued PT to progress functional shoulder strength as tolerated. Physical Therapy Plan Frequency and Duration Frequency of Treatment 2x/Week Duration of treatment (weeks) 7 Plan of Care Start Date 12/21/22 Plan of Care End Date 02/08/23 Therapeutic Interventions Therapeutic Interventions Home Exercise Program,Joint Mobilizations,Manual Therapy, Neuromuscular Re-education, Patient/Caregiver Education, Self-Care/Home Management,Soft Tissue Mobilization,Taping, Therapeutic Activities, Therapeutic Exercises Modalities Cold Pack/Ice Massage,Electric Stimulation,Hot Packs, Ultrasound Next Visit Focus/Plan Next Note Type Progress Note Next Visit Plan REview cable HEP: AAROM cable/ TB supported, and prone/ sidelying progress AROM. Continue scapular ROM, SA/LT/ Rhomboid strengthening to allow strength for RUE strengthening against gravity. POC: Continue to progress R Shoulder strength as tolerated
--- NOTE | 2023-01-18 09:49 | PT.OPPOC ---
Physical, Occupational & Speech Therapy At [facility] Current Diagnoses Pain in right shoulder (01/18/23) Stiffness of right hand, not elsewhere classified (01/18/23) Stiffness of left hand, not elsewhere classified (01/18/23) Visit Care Team Role Provider Type Gurpreet Mckenzie DO Attending Provider Physician Family Provider Primary Care Provider Referring Provider Specialty: [facility] Address: [address] [place] [address], [facility] Email: Plan Of Care PT-OP-T Assessment and Plan Start: 12/21/22 15:17 Freq: Status: Active Protocol: Document 01/18/23 09:49 AM (Rec: 01/18/23 11:31 AM [id number]) Physical Therapy Assessment Goals Strength Impairment Pt with 4- biceps and abduction strength Television News Anchor Goal (LTG) Pt with 4/5 strength at biceps and shoulder abduction Progressing, not met 01/18/23 LTG Duration 02/08/23 Golf Impairment Pt concerned about being able to swing a golf club. [employer] Anchor Goal (LTG) Pt able to chip and putt without increase in R shoulder pain Goal partially met: Pt able to do golf motion with theraband resistance without production in pain. LTG Duration 02/08/23 HEP Impairment Pt unsure of appropriate R shoulder exercises Skilled Nursing Goal (LTG) Pt independent with HEP LTG Duration 02/08/23 Quick Dash Impairment Pt with Quick Dash score of 22 .7% disability [employer] Anchor Goal (LTG) Pt with Quick Dash score of < 15% disability LTG Duration 02/08/23 Assessment Summary Assessment Pt is making progress towards goal. Pt continues to have shoulder irritability with shoulder abduction, though able to tolerate scaption AROM . Pt demonstrates superior humeral glide with abduction, though demonstrates better control with scaption position . Pt requires tactile cueing for scapular control with prone exercises. Pt would benefit from continued PT to progress functional shoulder strength as tolerated. Physical Therapy Plan Frequency and Duration Frequency of Treatment 2x/Week Duration of treatment (weeks) 7 Plan of Care Start Date 12/21/22 Plan of Care End Date 02/08/23 Therapeutic Interventions Therapeutic Interventions Home Exercise Program,Joint Mobilizations,Manual Therapy, Neuromuscular Re-education, Patient/Caregiver Education, Self-Care/Home Management,Soft Tissue Mobilization,Taping, Therapeutic Activities, Therapeutic Exercises Modalities Cold Pack/Ice Massage,Electric Stimulation,Hot Packs, Ultrasound Next Visit Focus/Plan Next Note Type Progress Note Next Visit Plan REview cable HEP: AAROM cable/ TB supported, and prone/ sidelying progress AROM. Continue scapular ROM, SA/LT/ Rhomboid strengthening to allow strength for RUE strengthening against gravity. POC: Continue to progress R Shoulder strength as tolerated Plan of Care Dates Plan of Care Start Date 12/21/22 Plan of Care End Date 02/08/23 Electronically Signed by: Nicole Griffin, PT 01/18/23 [id number] If you are in agreement with this Plan of Care, please return a signed and dated copy. I have reviewed this Plan of Care and certify that the skilled therapy services above are required to meet the patient?s needs. Physician Signature Date Printed Name and Credentials Clinical Instructor Signature Printed Name and Credentials
--- NOTE | 2023-01-21 09:01 | PT.OTN ---
Current Diagnoses Pain in right shoulder (01/21/23) Stiffness of right hand, not elsewhere classified (01/21/23) Stiffness of left hand, not elsewhere classified (01/21/23) Physical Therapy Treatment Note PT-OP-A Visit Information Start: 12/21/22 15:17 Freq: Status: Active Protocol: Document 01/21/23 09:01 AM (Rec: 01/21/23 10:09 AM [id number]) Out-Patient Physical Therapy Visit Information Visit Information Visit Type Treatment Note Visit Start Time 09:01 Visit Stop Time 09:46 Total Visit Minutes 45 Visit Number 10 PT-OP-B Current Condition Start: 12/21/22 15:17 Freq: Status: Active Protocol: Document 12/24/22 15:20 AM (Rec: 12/24/22 17:23 AM [id number]) Current Condition History of Current Condition Onset Date 1.5 months ago History of Current Condition Pt went to his rheumatoid doctor and she noticed that he had a kurt muscle on his R arm indicating torn biceps. He did not have any pain associated at the time. Pt unsure of how he tore it, though possible from lifting. Pt also reports bilateral hand cramping and spasms. Prior Treatments and Tests MRI indicating biceps tendon tear, AC arthritis, supraspinatus, infraspinatus and subscap tear, glenoid labral tear PT-OP-C Subjective Start: 12/21/22 15:17 Freq: Status: Active Protocol: Document 01/21/23 09:01 AM (Rec: 01/21/23 10:09 AM [id number]) OP-PT Subjective Patient Comments Patient Comments Pt reports that he had a sharp pain when doing prone rows yesterday, though otherwise shoulder has been ok. PT-OP-J Posture/Palpation/Skin Start: 12/21/22 15:17 Freq: Status: Active Protocol: Document 12/21/22 15:18 AM (Rec: 12/21/22 17:23 AM [id number]) Posture Evaluation Position Sitting Head/C-Spine Posture Forward Head Shoulder Posture (L) Forward,(R) Forward Palpation Assessment Location R shoulder Palpation Location Tenderness at posterior deltoid area, palpable biceps bulge PT-OP-K Range of Motion Start: 12/21/22 15:17 Freq: Status: Active Protocol: Document 01/18/23 09:49 AM (Rec: 01/18/23 11:31 AM [id number]) Shoulder Goniometric Range of Motion Shoulder Right Active Flexion 145 Comments Scaption 130 PT-OP-L Special Tests Start: 12/21/22 15:17 Freq: Status: Active Protocol: Document 12/21/22 15:18 AM (Rec: 12/21/22 17:23 AM [id number]) Special Tests Shoulder Special Tests Empty Can Test Results positive Kurt Biceps Test Results positive PT-OP-M Strength Start: 12/21/22 15:17 Freq: Status: Active Protocol: Document 01/18/23 09:49 AM (Rec: 01/18/23 11:31 AM [id number]) Shoulder Strength Shoulder Manual Muscle Testing Right Abduction (C5) 4- Good- Elbow/Forearm Strength Elbow and Forearm Manual Muscle Testing Right Flexion (C6) 4- Good- PT-OP-Q Treatments Start: 12/21/22 15:17 Freq: Status: Active Protocol: Document 01/21/23 09:01 AM (Rec: 01/21/23 10:09 AM [id number]) Therapeutic Exercises Prone Exercises Row Prone Exercise Name Row Side right Resistance 0-2# Reps/Minutes 3x10 Comments Manual cueing for scapular control. Pt required correction of ant GH glide Shoulder extension Side right Resistance 0-2 Reps/Minutes 3x10 Comments tactile cues for scapular control Sidelying Exercises R shld ABD Sidelying Exercise Name R shoulder abduction iso Side right Reps/Minutes 2x30 sec Standing Exercises Dowel abduction Standing Exercise Name Dowel scaption Side right Equipment Used trekking pole Reps/Minutes 2x10 Comments cues to avoid painful range Shoulder extension Side bilateral Equipment Used 10# Reps/Minutes 2x10 Comments manual cueing for scapular control Row Side bilateral Resistance 10# Equipment Used 2x10 Comments manual cueing for scapular control Manual Therapy Treatment Joint Mobilizations R shoulder Direction S-I and A-P Grade III Body Position Supine R scapulothoracic Joint scapula Direction medial, inf Grade III Body Position Sidelying Comments passive and with AAROM Manual Techniques Shouler PROM Type PROM all directions Body Position Supine PT-OP-T Assessment and Plan Start: 12/21/22 15:17 Freq: Status: Active Protocol: Document 01/21/23 09:01 AM (Rec: 01/21/23 10:09 AM [id number]) Physical Therapy Assessment Goals Strength Impairment Pt with 4- biceps and abduction strength Jail Goal (LTG) Pt with 4/5 strength at biceps and shoulder abduction Progressing, not met 01/18/23 LTG Duration 02/08/23 Golf Impairment Pt concerned about being able to swing a golf club. Production Material Handler Goal (LTG) Pt able to chip and putt without increase in R shoulder pain Goal partially met: Pt able to do golf motion with theraband resistance without production in pain. LTG Duration 02/08/23 HEP Impairment Pt unsure of appropriate R shoulder exercises Production Material Handler Goal (LTG) Pt independent with HEP LTG Duration 02/08/23 Quick Dash Impairment Pt with Quick Dash score of 22 .7% disability Jail Goal (LTG) Pt with Quick Dash score of < 15% disability LTG Duration 02/08/23 Physical Therapy Plan Frequency and Duration Frequency of Treatment 2x/Week Duration of treatment (weeks) 7 Plan of Care Start Date 12/21/22 Plan of Care End Date 02/08/23 Therapeutic Interventions Therapeutic Interventions Home Exercise Program,Joint Mobilizations,Manual Therapy, Neuromuscular Re-education, Patient/Caregiver Education, Self-Care/Home Management,Soft Tissue Mobilization,Taping, Therapeutic Activities, Therapeutic Exercises Modalities Cold Pack/Ice Massage,Electric Stimulation,Hot Packs, Ultrasound Next Visit Focus/Plan Next Note Type Treatment Note Next Visit Plan prone/sidelying progress AROM. Continue scapular ROM, SA/LT/ Rhomboid strengthening to allow strength for RUE strengthening against gravity. POC: Continue to progress R Shoulder strength as tolerated
--- NOTE | 2023-01-28 09:02 | PT.OTN ---
Current Diagnoses Pain in right shoulder (01/28/23) Stiffness of right hand, not elsewhere classified (01/28/23) Stiffness of left hand, not elsewhere classified (01/28/23) Physical Therapy Treatment Note PT-OP-A Visit Information Start: 12/21/22 15:17 Freq: Status: Active Protocol: Document 01/28/23 09:02 AM (Rec: 01/28/23 11:26 AM [id number]) Out-Patient Physical Therapy Visit Information Visit Information Visit Type Treatment Note Visit Start Time 09:02 Visit Stop Time 09:47 Total Visit Minutes 45 Visit Number 11 PT-OP-B Current Condition Start: 12/21/22 15:17 Freq: Status: Active Protocol: Document 12/24/22 15:20 AM (Rec: 12/24/22 17:23 AM [id number]) Current Condition History of Current Condition Onset Date 1.5 months ago History of Current Condition Pt went to his rheumatoid doctor and she noticed that he had a kurt muscle on his R arm indicating torn biceps. He did not have any pain associated at the time. Pt unsure of how he tore it, though possible from lifting. Pt also reports bilateral hand cramping and spasms. Prior Treatments and Tests MRI indicating biceps tendon tear, AC arthritis, supraspinatus, infraspinatus and subscap tear, glenoid labral tear PT-OP-C Subjective Start: 12/21/22 15:17 Freq: Status: Active Protocol: Document 01/28/23 09:02 AM (Rec: 01/28/23 11:26 AM [id number]) OP-PT Subjective Patient Comments Patient Comments Pt reports that he had pain at anterior shoulder and in pec region after last session and the day following when he tried to do his exercises. PT-OP-J Posture/Palpation/Skin Start: 12/21/22 15:17 Freq: Status: Active Protocol: Document 12/21/22 15:18 AM (Rec: 12/21/22 17:23 AM [id number]) Posture Evaluation Position Sitting Head/C-Spine Posture Forward Head Shoulder Posture (L) Forward,(R) Forward Palpation Assessment Location R shoulder Palpation Location Tenderness at posterior deltoid area, palpable biceps bulge PT-OP-K Range of Motion Start: 12/21/22 15:17 Freq: Status: Active Protocol: Document 01/18/23 09:49 AM (Rec: 01/18/23 11:31 AM [id number]) Shoulder Goniometric Range of Motion Shoulder Right Active Flexion 145 Comments Scaption 130 PT-OP-L Special Tests Start: 12/21/22 15:17 Freq: Status: Active Protocol: Document 12/21/22 15:18 AM (Rec: 12/21/22 17:23 AM [id number]) Special Tests Shoulder Special Tests Empty Can Test Results positive Kurt Biceps Test Results positive PT-OP-M Strength Start: 12/21/22 15:17 Freq: Status: Active Protocol: Document 01/18/23 09:49 AM (Rec: 01/18/23 11:31 AM [id number]) Shoulder Strength Shoulder Manual Muscle Testing Right Abduction (C5) 4- Good- Elbow/Forearm Strength Elbow and Forearm Manual Muscle Testing Right Flexion (C6) 4- Good- PT-OP-Q Treatments Start: 12/21/22 15:17 Freq: Status: Active Protocol: Document 01/28/23 09:02 AM (Rec: 01/28/23 11:26 AM [id number]) Cardio Equipment Upper Body Ergometer (UBE) Duration (Minutes) 5 Seat Position 15 Therapeutic Exercises Sidelying Exercises R shld ABD Sidelying Exercise Name R shoulder abduction iso and AAROM abduction Side right Reps/Minutes 2x30 sec Comments manual S-I glide Sitting Exercises Lissette Sitting Exercise Name flexion and abduction Reps/Minutes x15 Standing Exercises Dowel abduction Standing Exercise Name Dowel scaption Side right Equipment Used trekking pole Reps/Minutes 2x10 Comments cues to avoid painful range wall slide Standing Exercise Name wall slide Reps/Minutes x5 Shoulder extension Side bilateral Equipment Used BTB-GTB Reps/Minutes 2x10 Comments manual cueing for scapular control Row Side bilateral Resistance BTB-GTB Equipment Used 2x10 Comments manual cueing for scapular control Manual Therapy Treatment Soft Tissue Mobilization R shoulder Body Location R deltoids, UT Mobilization Type Myofascial Release,Strumming, Trigger Point Release Intensity/Depth Moderate Body Position Supine Joint Mobilizations R shoulder Direction S-I and A-P Grade III Body Position Supine Manual Techniques Shouler PROM Type PROM all directions Body Position Supine PT-OP-T Assessment and Plan Start: 12/21/22 15:17 Freq: Status: Active Protocol: Document 01/28/23 09:02 AM (Rec: 01/28/23 11:26 AM [id number]) Physical Therapy Assessment Goals Strength Impairment Pt with 4- biceps and abduction strength Sash Clamp Operator Goal (LTG) Pt with 4/5 strength at biceps and shoulder abduction Progressing, not met 01/18/23 LTG Duration 02/08/23 Golf Impairment Pt concerned about being able to swing a golf club. Alf Goal (LTG) Pt able to chip and putt without increase in R shoulder pain Goal partially met: Pt able to do golf motion with theraband resistance without production in pain. LTG Duration 02/08/23 HEP Impairment Pt unsure of appropriate R shoulder exercises Sash Clamp Operator Goal (LTG) Pt independent with HEP LTG Duration 02/08/23 Quick Dash Impairment Pt with Quick Dash score of 22 .7% disability Sash Clamp Operator Goal (LTG) Pt with Quick Dash score of < 15% disability LTG Duration 02/08/23 Assessment Summary Assessment Pt tolerated all AAROM and PROM well today with minimal production of symptoms. Symptoms monitored throughout session to avoid increase in symptoms. Pt required manual cueing to decrease anterior glide of humerus with scapular training. Pt continues to be challenged with shoulder abduction AROM. Pt with tenderness along ant and med deltoids with STM. PT discussed importance of maintaining ROM, without increasing shoulder irritability. Pt will return to PT next week to continue to progress shoulder functional mobility as tolerated. Physical Therapy Plan Frequency and Duration Frequency of Treatment 2x/Week Duration of treatment (weeks) 7 Plan of Care Start Date 12/21/22 Plan of Care End Date 02/08/23 Therapeutic Interventions Therapeutic Interventions Home Exercise Program,Joint Mobilizations,Manual Therapy, Neuromuscular Re-education, Patient/Caregiver Education, Self-Care/Home Management,Soft Tissue Mobilization,Taping, Therapeutic Activities, Therapeutic Exercises Modalities Cold Pack/Ice Massage,Electric Stimulation,Hot Packs, Ultrasound Next Visit Focus/Plan Next Note Type Treatment Note Next Visit Plan prone/sidelying progress AROM. Continue scapular ROM, SA/LT/ Rhomboid strengthening to allow strength for RUE strengthening against gravity. POC: Continue to progress R Shoulder strength as tolerated
--- NOTE | 2023-02-01 09:50 | PT.OTN ---
Current Diagnoses Pain in right shoulder (02/01/23) Stiffness of right hand, not elsewhere classified (02/01/23) Stiffness of left hand, not elsewhere classified (02/01/23) Physical Therapy Treatment Note PT-OP-A Visit Information Start: 12/21/22 15:17 Freq: Status: Active Protocol: Document 02/01/23 09:07 SP (Rec: 02/01/23 10:03 SP [id number]) Out-Patient Physical Therapy Visit Information Visit Information Visit Type Treatment Note Visit Start Time 09:07 Visit Stop Time 09:50 Total Visit Minutes 43 Visit Number 12 Number of FONDANT PUFF MAKER Visits 1 PT-OP-B Current Condition Start: 12/21/22 15:17 Freq: Status: Active Protocol: Document 12/24/22 15:20 AM (Rec: 12/24/22 17:23 AM [id number]) Current Condition History of Current Condition Onset Date 1.5 months ago History of Current Condition Pt went to his rheumatoid doctor and she noticed that he had a kurt muscle on his R arm indicating torn biceps. He did not have any pain associated at the time. Pt unsure of how he tore it, though possible from lifting. Pt also reports bilateral hand cramping and spasms. Prior Treatments and Tests MRI indicating biceps tendon tear, AC arthritis, supraspinatus, infraspinatus and subscap tear, glenoid labral tear PT-OP-C Subjective Start: 12/21/22 15:17 Freq: Status: Active Protocol: Document 02/01/23 09:07 SP (Rec: 02/01/23 10:03 SP [id number]) OP-PT Subjective Patient Comments Patient Comments Pt reports little pain over anterior R shld, compliant with HEP but really sore PT-OP-J Posture/Palpation/Skin Start: 12/21/22 15:17 Freq: Status: Active Protocol: Document 12/21/22 15:18 AM (Rec: 12/21/22 17:23 AM [id number]) Posture Evaluation Position Sitting Head/C-Spine Posture Forward Head Shoulder Posture (L) Forward,(R) Forward Palpation Assessment Location R shoulder Palpation Location Tenderness at posterior deltoid area, palpable biceps bulge PT-OP-K Range of Motion Start: 12/21/22 15:17 Freq: Status: Active Protocol: Document 01/18/23 09:49 AM (Rec: 01/18/23 11:31 AM [id number]) Shoulder Goniometric Range of Motion Shoulder Right Active Flexion 145 Comments Scaption 130 PT-OP-L Special Tests Start: 12/21/22 15:17 Freq: Status: Active Protocol: Document 12/21/22 15:18 AM (Rec: 12/21/22 17:23 AM [id number]) Special Tests Shoulder Special Tests Empty Can Test Results positive Kurt Biceps Test Results positive PT-OP-M Strength Start: 12/21/22 15:17 Freq: Status: Active Protocol: Document 01/18/23 09:49 AM (Rec: 01/18/23 11:31 AM [id number]) Shoulder Strength Shoulder Manual Muscle Testing Right Abduction (C5) 4- Good- Elbow/Forearm Strength Elbow and Forearm Manual Muscle Testing Right Flexion (C6) 4- Good- PT-OP-Q Treatments Start: 12/21/22 15:17 Freq: Status: Active Protocol: Document 02/01/23 09:07 SP (Rec: 02/01/23 10:03 SP [id number]) Therapeutic Exercises Sidelying Exercises open book Sidelying Exercise Name added to HEP Side bilateral Resistance AROM Reps/Minutes x10 Comments cued segmental sequence HABD, scap glide and HT with arm R shld ABD Sidelying Exercise Name R shoulder abduction Side right Resistance AROM> #1 DB Reps/Minutes 2x30 sec Comments manual S-I glide suppor Sitting Exercises AAROM TB Sitting Exercise Name Eccentric: FF, ABD Side right Resistance GTB FF, BTB ABD Equipment Used Chair: rear and side/angle face away Reps/Minutes x15 reps Comments cued slow ecc assisted ROM and eccentric control Standing Exercises windmill c/ shld ER palm up Standing Exercise Name reviewed self HEP from his Side bilateral Reps/Minutes x3 reps end tx Comments cued shld ER, level shld- improved deltoid, rhomboid, SerAnt fac Shoulder extension Side bilateral Equipment Used BTB-GTB Reps/Minutes 2x10 Comments improved scapular retraction/ depression chest lift/ scap squeeze Row Side bilateral Resistance BTB-GTB Equipment Used 2x10 Comments min vs/tactile cue scap retraction/depresssion eccentric control Manual Therapy Treatment Joint Mobilizations R scapulothoracic Joint scapula Direction medial, inf Grade II Body Position Sidelying Comments passive and with AAROM PT-OP-T Assessment and Plan Start: 12/21/22 15:17 Freq: Status: Active Protocol: Document 02/01/23 09:07 SP (Rec: 02/01/23 10:03 SP [id number]) Physical Therapy Assessment Goals Strength Impairment Pt with 4- biceps and abduction strength Assisted Goal (LTG) Pt with 4/5 strength at biceps and shoulder abduction Progressing, not met 01/18/23 LTG Duration 02/08/23 Golf Impairment Pt concerned about being able to swing a golf club. Assisted Goal (LTG) Pt able to chip and putt without increase in R shoulder pain Goal partially met: Pt able to do golf motion with theraband resistance without production in pain. LTG Duration 02/08/23 HEP Impairment Pt unsure of appropriate R shoulder exercises Portable Machine Sander Goal (LTG) Pt independent with HEP LTG Duration 02/08/23 Quick Dash Impairment Pt with Quick Dash score of 22 .7% disability Assisted Goal (LTG) Pt with Quick Dash score of < 15% disability LTG Duration 02/08/23 Assessment Summary Assessment Pt improved rhomboid, Serr Ant and LT engagement during side abd and added open book with VCs for slow scapular glide awareness and shld ER/palm fwd with improved support. Noted improved R GH inf glide at times when reach OH sit TB assist and side ther ex but still not completed scapular aware doing correctly. Physical Therapy Plan Frequency and Duration Frequency of Treatment 2x/Week Duration of treatment (weeks) 7 Plan of Care Start Date 12/21/22 Plan of Care End Date 02/08/23 Therapeutic Interventions Therapeutic Interventions Home Exercise Program,Joint Mobilizations,Manual Therapy, Neuromuscular Re-education, Patient/Caregiver Education, Self-Care/Home Management,Soft Tissue Mobilization,Taping, Therapeutic Activities, Therapeutic Exercises Modalities Cold Pack/Ice Massage,Electric Stimulation,Hot Packs, Ultrasound Next Visit Focus/Plan Next Note Type Progress Note Next Visit Plan Updated POC next tx. check added tx and reestabilished with new PT come end Nov. KX Modifier at 20th tx. Recheck openbook. POC: prone/sidelying progress AROM. Continue scapular ROM, SA/LT/ Rhomboid strengthening to allow strength for RUE strengthening against gravity. POC: Continue to progress R Shoulder strength as tolerated
--- NOTE | 2023-02-04 09:02 | PT.OTN ---
Current Diagnoses Pain in right shoulder (02/04/23) Stiffness of right hand, not elsewhere classified (02/04/23) Stiffness of left hand, not elsewhere classified (02/04/23) Physical Therapy Treatment Note PT-OP-A Visit Information Start: 12/21/22 15:17 Freq: Status: Active Protocol: Document 02/04/23 09:02 AM (Rec: 02/04/23 10:56 AM [id number]) Out-Patient Physical Therapy Visit Information Visit Information Visit Type Treatment Note Visit Start Time 09:02 Visit Stop Time 09:47 Total Visit Minutes 45 Visit Number 13 PT-OP-B Current Condition Start: 12/21/22 15:17 Freq: Status: Active Protocol: Document 12/24/22 15:20 AM (Rec: 12/24/22 17:23 AM [id number]) Current Condition History of Current Condition Onset Date 1.5 months ago History of Current Condition Pt went to his rheumatoid doctor and she noticed that he had a kurt muscle on his R arm indicating torn biceps. He did not have any pain associated at the time. Pt unsure of how he tore it, though possible from lifting. Pt also reports bilateral hand cramping and spasms. Prior Treatments and Tests MRI indicating biceps tendon tear, AC arthritis, supraspinatus, infraspinatus and subscap tear, glenoid labral tear PT-OP-C Subjective Start: 12/21/22 15:17 Freq: Status: Active Protocol: Document 02/04/23 09:02 AM (Rec: 02/04/23 10:56 AM [id number]) OP-PT Subjective Patient Comments Patient Comments Pt reports ant shoulder pain after last tx session. Pt reports that he feels that his shoulder is improving, though progress feels slow. PT-OP-J Posture/Palpation/Skin Start: 12/21/22 15:17 Freq: Status: Active Protocol: Document 12/21/22 15:18 AM (Rec: 12/21/22 17:23 AM [id number]) Posture Evaluation Position Sitting Head/C-Spine Posture Forward Head Shoulder Posture (L) Forward,(R) Forward Palpation Assessment Location R shoulder Palpation Location Tenderness at posterior deltoid area, palpable biceps bulge PT-OP-K Range of Motion Start: 12/21/22 15:17 Freq: Status: Active Protocol: Document 02/04/23 09:02 AM (Rec: 02/04/23 10:56 AM [id number]) Shoulder Goniometric Range of Motion Shoulder Right Active Flexion 145 Abduction 140 Internal Rotation Behind Back (text) T12 Comments ER Aply T3 PT-OP-L Special Tests Start: 12/21/22 15:17 Freq: Status: Active Protocol: Document 12/21/22 15:18 AM (Rec: 12/21/22 17:23 AM [id number]) Special Tests Shoulder Special Tests Empty Can Test Results positive Kurt Biceps Test Results positive PT-OP-M Strength Start: 12/21/22 15:17 Freq: Status: Active Protocol: Document 01/18/23 09:49 AM (Rec: 01/18/23 11:31 AM [id number]) Shoulder Strength Shoulder Manual Muscle Testing Right Abduction (C5) 4- Good- Elbow/Forearm Strength Elbow and Forearm Manual Muscle Testing Right Flexion (C6) 4- Good- PT-OP-Q Treatments Start: 12/21/22 15:17 Freq: Status: Active Protocol: Document 02/04/23 09:02 AM (Rec: 02/04/23 10:56 AM [id number]) Therapeutic Exercises Sidelying Exercises open book Sidelying Exercise Name reviewed Side bilateral Resistance AROM Reps/Minutes x10 Comments cued segmental sequence HABD, scap glide and HT with arm R shld ABD Sidelying Exercise Name R shoulder abduction Side right Resistance AROM> #1 DB Reps/Minutes 2x30 sec iso, x10 ROM Comments manual S-I glide suppor Sitting Exercises Lissette Sitting Exercise Name flexion and abduction Reps/Minutes x15 Standing Exercises Dowel abduction Standing Exercise Name Dowel scaption Side right Equipment Used trekking pole Reps/Minutes 2x10 Comments cues to avoid painful range wall slide Standing Exercise Name wall slide Reps/Minutes x5 Row Side bilateral Resistance GTB Equipment Used 2x10 Comments min vs/tactile cue scap retraction/depresssion eccentric control Manual Therapy Treatment Soft Tissue Mobilization R shoulder Body Location R deltoids, UT Mobilization Type Myofascial Release,Strumming, Trigger Point Release Intensity/Depth Moderate Body Position Supine Joint Mobilizations R shoulder Direction S-I and A-P Grade III Body Position Supine Manual Techniques Shouler PROM Type PROM all directions Body Position Supine PT-OP-T Assessment and Plan Start: 12/21/22 15:17 Freq: Status: Active Protocol: Document 02/04/23 09:02 AM (Rec: 02/04/23 10:56 AM [id number]) Physical Therapy Assessment Goals Strength Impairment Pt with 4- biceps and abduction strength Alf Goal (LTG) Pt with 4/5 strength at biceps and shoulder abduction Progressing, not met 01/18/23 02/04/23: Not met LTG Duration 02/08/23 Golf Impairment Pt concerned about being able to swing a golf club. Medical Office Administrator Goal (LTG) Pt able to chip and putt without increase in R shoulder pain Goal partially met: Pt able to do golf motion with theraband resistance without production in pain. LTG Duration 03/08/23 HEP Impairment Pt unsure of appropriate R shoulder exercises Medical Office Administrator Goal (LTG) Pt independent with HEP LTG Duration 03/08/23 Quick Dash Impairment Pt with Quick Dash score of 22 .7% disability Alf Goal (LTG) Pt with Quick Dash score of < 15% disability LTG Duration 03/08/23 Assessment Summary Assessment Pt with improved tolerance to sidelying shoulder abduction. Pt with significant reduction in pain with manual S-I glide with abduction. Pt able to self-mobilization to decrease pain as well. Pt tolerates all AAROM flexion and abduction activities well. Pt continues to be challenged with LT activation with standing TB row. Pt would benefit from continued PT to progress shoulder mobility and function as tolerated. Physical Therapy Plan Frequency and Duration Frequency of Treatment 2x/Week Duration of treatment (weeks) 11 Plan of Care Start Date 12/21/22 Plan of Care End Date 03/08/23 Therapeutic Interventions Therapeutic Interventions Home Exercise Program,Joint Mobilizations,Manual Therapy, Neuromuscular Re-education, Patient/Caregiver Education, Self-Care/Home Management,Soft Tissue Mobilization,Taping, Therapeutic Activities, Therapeutic Exercises Modalities Cold Pack/Ice Massage,Electric Stimulation,Hot Packs, Ultrasound Next Visit Focus/Plan Next Note Type Treatment Note Next Visit Plan Updated POC next tx. check added tx and reestabilished with new PT come end Nov. KX Modifier at 20th tx. Recheck openbook. POC: prone/sidelying progress AROM. Continue scapular ROM, SA/LT/ Rhomboid strengthening to allow strength for RUE strengthening against gravity. POC: Continue to progress R Shoulder strength as tolerated
--- NOTE | 2023-02-04 09:02 | PT.OPPOC ---
Physical, Occupational & Speech Therapy At [facility] Current Diagnoses Pain in right shoulder (02/04/23) Stiffness of right hand, not elsewhere classified (02/04/23) Stiffness of left hand, not elsewhere classified (02/04/23) Visit Care Team Role Provider Type Gurpreet Mckenzie DO Attending Provider Physician Family Provider Primary Care Provider Referring Provider Specialty: [facility] Address: [address] [place] [address], [facility] Email: Plan Of Care PT-OP-T Assessment and Plan Start: 12/21/22 15:17 Freq: Status: Active Protocol: Document 02/04/23 09:02 AM (Rec: 02/04/23 10:56 AM [id number]) Physical Therapy Assessment Goals Strength Impairment Pt with 4- biceps and abduction strength Stock Broker Goal (LTG) Pt with 4/5 strength at biceps and shoulder abduction Progressing, not met 01/18/23 02/04/23: Not met LTG Duration 02/08/23 Golf Impairment Pt concerned about being able to swing a golf club. Stock Broker Goal (LTG) Pt able to chip and putt without increase in R shoulder pain Goal partially met: Pt able to do golf motion with theraband resistance without production in pain. LTG Duration 03/08/23 HEP Impairment Pt unsure of appropriate R shoulder exercises [facility] Goal (LTG) Pt independent with HEP LTG Duration 03/08/23 Quick Dash Impairment Pt with Quick Dash score of 22 .7% disability [facility] Goal (LTG) Pt with Quick Dash score of < 15% disability LTG Duration 03/08/23 Assessment Summary Assessment Pt with improved tolerance to sidelying shoulder abduction. Pt with significant reduction in pain with manual S-I glide with abduction. Pt able to self-mobilization to decrease pain as well. Pt tolerates all AAROM flexion and abduction activities well. Pt continues to be challenged with LT activation with standing TB row. Pt would benefit from continued PT to progress shoulder mobility and function as tolerated. Physical Therapy Plan Frequency and Duration Frequency of Treatment 2x/Week Duration of treatment (weeks) 11 Plan of Care Start Date 12/21/22 Plan of Care End Date 03/08/23 Therapeutic Interventions Therapeutic Interventions Home Exercise Program,Joint Mobilizations,Manual Therapy, Neuromuscular Re-education, Patient/Caregiver Education, Self-Care/Home Management,Soft Tissue Mobilization,Taping, Therapeutic Activities, Therapeutic Exercises Modalities Cold Pack/Ice Massage,Electric Stimulation,Hot Packs, Ultrasound Next Visit Focus/Plan Next Note Type Treatment Note Next Visit Plan Updated POC next tx. check added tx and reestabilished with new PT come end Nov. KX Modifier at 20th tx. Recheck openbook. POC: prone/sidelying progress AROM. Continue scapular ROM, SA/LT/ Rhomboid strengthening to allow strength for RUE strengthening against gravity. POC: Continue to progress R Shoulder strength as tolerated Plan of Care Dates Plan of Care Start Date 12/21/22 Plan of Care End Date 03/08/23 Electronically Signed by: Nicole Griffin, PT 02/04/23 7758 If you are in agreement with this Plan of Care, please return a signed and dated copy. I have reviewed this Plan of Care and certify that the skilled therapy services above are required to meet the patient?s needs. Physician Signature Date Printed Name and Credentials Clinical Instructor Signature Printed Name and Credentials
--- NOTE | 2023-02-09 11:59 | PT.OTN ---
Current Diagnoses Pain in right shoulder (02/09/23) Stiffness of right hand, not elsewhere classified (02/09/23) Stiffness of left hand, not elsewhere classified (02/09/23) Physical Therapy Treatment Note PT-OP-A Visit Information Start: 12/21/22 15:17 Freq: Status: Active Protocol: Document 02/09/23 09:01 NM (Rec: 02/09/23 09:46 NM [id number]) Out-Patient Physical Therapy Visit Information Visit Information Visit Type Treatment Note Visit Note KX modifier needed at 20th tmt POC and PN last updated 02/04 Visit Start Time 08:59 Visit Stop Time 09:44 Total Visit Minutes 45 Visit Number 14 PT-OP-B Current Condition Start: 12/21/22 15:17 Freq: Status: Active Protocol: Document 12/24/22 15:20 AM (Rec: 12/24/22 17:23 AM [id number]) Current Condition History of Current Condition Onset Date 1.5 months ago History of Current Condition Pt went to his rheumatoid doctor and she noticed that he had a kurt muscle on his R arm indicating torn biceps. He did not have any pain associated at the time. Pt unsure of how he tore it, though possible from lifting. Pt also reports bilateral hand cramping and spasms. Prior Treatments and Tests MRI indicating biceps tendon tear, AC arthritis, supraspinatus, infraspinatus and subscap tear, glenoid labral tear PT-OP-C Subjective Start: 12/21/22 15:17 Freq: Status: Active Protocol: Document 02/09/23 09:01 NM (Rec: 02/09/23 09:46 NM [id number]) OP-PT Subjective Patient Comments Patient Comments Pt reports improvement in symptoms since last visit. He still has some soreness in the anterior shoulder, but he reports improvement overall. He states that the doorway stretch in shoulder flexion is very helpful. PT-OP-J Posture/Palpation/Skin Start: 12/21/22 15:17 Freq: Status: Active Protocol: Document 12/21/22 15:18 AM (Rec: 12/21/22 17:23 AM [id number]) Posture Evaluation Position Sitting Head/C-Spine Posture Forward Head Shoulder Posture (L) Forward,(R) Forward Palpation Assessment Location R shoulder Palpation Location Tenderness at posterior deltoid area, palpable biceps bulge PT-OP-K Range of Motion Start: 12/21/22 15:17 Freq: Status: Active Protocol: Document 02/04/23 09:02 AM (Rec: 02/04/23 10:56 AM [id number]) Shoulder Goniometric Range of Motion Shoulder Right Active Flexion 145 Abduction 140 Internal Rotation Behind Back (text) T12 Comments ER Aply T3 PT-OP-L Special Tests Start: 12/21/22 15:17 Freq: Status: Active Protocol: Document 12/21/22 15:18 AM (Rec: 12/21/22 17:23 AM [id number]) Special Tests Shoulder Special Tests Empty Can Test Results positive Kurt Biceps Test Results positive PT-OP-M Strength Start: 12/21/22 15:17 Freq: Status: Active Protocol: Document 01/18/23 09:49 AM (Rec: 01/18/23 11:31 AM [id number]) Shoulder Strength Shoulder Manual Muscle Testing Right Abduction (C5) 4- Good- Elbow/Forearm Strength Elbow and Forearm Manual Muscle Testing Right Flexion (C6) 4- Good- PT-OP-Q Treatments Start: 12/21/22 15:17 Freq: Status: Active Protocol: Document 02/09/23 09:01 NM (Rec: 02/09/23 09:46 NM [id number]) Cardio Equipment Upper Body Ergometer (UBE) Duration (Minutes) 6 RPM 31 Other 3 min fwd, 3 min bwd Therapeutic Exercises Sidelying Exercises open book Side bilateral Resistance level 3 tb Reps/Minutes x10 Comments cued segmental sequence HABD, scap glide and HT with arm R shld ABD Sidelying Exercise Name R shoulder abduction Side right Resistance AROM Reps/Minutes x15 ROM Comments no 1# d/t pain, facilitate scap and humeral inf glide Sitting Exercises Lissette Sitting Exercise Name scaption and abduction Reps/Minutes x15 Standing Exercises Wall push up Standing Exercise Name for improved SA activation Side bilateral Equipment Used wall Reps/Minutes x20 Comments manually facilitating scap protraction Dowel abduction Standing Exercise Name Dowel scaption Side right Equipment Used trekking pole Reps/Minutes 2x10 Comments cues to avoid painful range wall slide Standing Exercise Name wall slide + SA activation Reps/Minutes 2x15 standing long arm pull down Side bilateral Resistance blue tb Reps/Minutes 10 Shoulder extension Side bilateral Equipment Used BTB Reps/Minutes 2x10 Comments performed without pain Row Side bilateral Resistance GTB Equipment Used 2x10 Comments min vs/tactile cue scap retraction/depression eccentric control Manual Therapy Treatment Joint Mobilizations R shoulder Direction Sup>Inf glide Grade III Body Position Supine R scapulothoracic Joint scapula Direction medial, inf Grade II Body Position Sidelying Comments passive, active assisted Manual Techniques Shouler PROM Type PROM flex due to time Body Position Supine PT-OP-T Assessment and Plan Start: 12/21/22 15:17 Freq: Status: Active Protocol: Document 02/09/23 09:01 NM (Rec: 02/09/23 09:46 NM [id number]) Physical Therapy Assessment Goals Strength Impairment Pt with 4- biceps and abduction strength Silk Screen Layout Drafter Goal (LTG) Pt with 4/5 strength at biceps and shoulder abduction Progressing, not met 01/18/23 02/04/23: Not met Golf Impairment Pt concerned about being able to swing a golf club. Silk Screen Layout Drafter Goal (LTG) Pt able to chip and putt without increase in R shoulder pain Goal partially met: Pt able to do golf motion with theraband resistance without production in pain. LTG Duration 03/08/23 HEP Impairment Pt unsure of appropriate R shoulder exercises Silk Screen Layout Drafter Goal (LTG) Pt independent with HEP LTG Duration 03/08/23 Quick Dash Impairment Pt with Quick Dash score of 22 .7% disability Silk Screen Layout Drafter Goal (LTG) Pt with Quick Dash score of < 15% disability LTG Duration 03/08/23 Assessment Summary Assessment Pt tolerated treatment fair. Continues to have pain during shoulder flex and abd about 120 deg, which can be relieved with a superior-inferior glide to adjust position of the humerus during scapulohumeral rhythm. He has difficulty with fwd flexion exercises in scaption due to pain, which is worse when loaded. Pt is able to tolerate increased AAROM and sometimes AROM in flex and abd without pain. Pt would benefit from continued skilled PT to address impairments in strength, ROM, and to maximize activity tolerance. Physical Therapy Plan Frequency and Duration Frequency of Treatment 2x/Week Duration of treatment (weeks) 11 Plan of Care Start Date 12/21/22 Plan of Care End Date 03/08/23 Therapeutic Interventions Therapeutic Interventions Home Exercise Program,Joint Mobilizations,Manual Therapy, Neuromuscular Re-education, Patient/Caregiver Education, Self-Care/Home Management,Soft Tissue Mobilization,Taping, Therapeutic Activities, Therapeutic Exercises Modalities Cold Pack/Ice Massage,Electric Stimulation,Hot Packs, Ultrasound Next Visit Focus/Plan Next Note Type Treatment Note Next Visit Plan Continue and progress scapular ROM, SA/LT/Rhomboid strengthening to allow strength for RUE strengthening against gravity. Progress R Shoulder strength as tolerated
--- NOTE | 2023-02-11 10:17 | PT.OTN ---
Current Diagnoses Pain in right shoulder (02/11/23) Stiffness of right hand, not elsewhere classified (02/11/23) Stiffness of left hand, not elsewhere classified (02/11/23) Physical Therapy Treatment Note PT-OP-A Visit Information Start: 12/21/22 15:17 Freq: Status: Active Protocol: Document 02/11/23 08:17 NM (Rec: 02/11/23 09:23 NM [id number]) Out-Patient Physical Therapy Visit Information Visit Information Visit Type Treatment Note Visit Note KX modifier needed at 20th tmt POC and PN completed 02/04 Visit Start Time 08:14 Visit Stop Time 08:58 Total Visit Minutes 43 Visit Number 15 PT-OP-B Current Condition Start: 12/21/22 15:17 Freq: Status: Active Protocol: Document 12/24/22 15:20 AM (Rec: 12/24/22 17:23 AM [id number]) Current Condition History of Current Condition Onset Date 1.5 months ago History of Current Condition Pt went to his rheumatoid doctor and she noticed that he had a kurt muscle on his R arm indicating torn biceps. He did not have any pain associated at the time. Pt unsure of how he tore it, though possible from lifting. Pt also reports bilateral hand cramping and spasms. Prior Treatments and Tests MRI indicating biceps tendon tear, AC arthritis, supraspinatus, infraspinatus and subscap tear, glenoid labral tear PT-OP-C Subjective Start: 12/21/22 15:17 Freq: Status: Active Protocol: Document 02/11/23 08:17 NM (Rec: 02/11/23 09:23 NM [id number]) OP-PT Subjective Patient Comments Patient Comments Pt reports that he is doing well and feels an improvement in his shoulder pain today. He states that he did not have any anterior shoulder pain since the last session. He also reports compliance with his HEP. Patient Reported Progress Improving PT-OP-J Posture/Palpation/Skin Start: 12/21/22 15:17 Freq: Status: Active Protocol: Document 12/21/22 15:18 AM (Rec: 12/21/22 17:23 AM [id number]) Posture Evaluation Position Sitting Head/C-Spine Posture Forward Head Shoulder Posture (L) Forward,(R) Forward Palpation Assessment Location R shoulder Palpation Location Tenderness at posterior deltoid area, palpable biceps bulge PT-OP-K Range of Motion Start: 12/21/22 15:17 Freq: Status: Active Protocol: Document 02/04/23 09:02 AM (Rec: 02/04/23 10:56 AM [id number]) Shoulder Goniometric Range of Motion Shoulder Right Active Flexion 145 Abduction 140 Internal Rotation Behind Back (text) T12 Comments ER Aply T3 PT-OP-L Special Tests Start: 12/21/22 15:17 Freq: Status: Active Protocol: Document 12/21/22 15:18 AM (Rec: 12/21/22 17:23 AM [id number]) Special Tests Shoulder Special Tests Empty Can Test Results positive Kurt Biceps Test Results positive PT-OP-M Strength Start: 12/21/22 15:17 Freq: Status: Active Protocol: Document 01/18/23 09:49 AM (Rec: 01/18/23 11:31 AM [id number]) Shoulder Strength Shoulder Manual Muscle Testing Right Abduction (C5) 4- Good- Elbow/Forearm Strength Elbow and Forearm Manual Muscle Testing Right Flexion (C6) 4- Good- PT-OP-Q Treatments Start: 12/21/22 15:17 Freq: Status: Active Protocol: Document 02/11/23 08:17 NM (Rec: 02/11/23 09:23 NM [id number]) Therapeutic Exercises Sidelying Exercises open book Side bilateral Resistance AROM Reps/Minutes x15 Comments cued segmental sequence HABD, scap glide and HT with arm R shld ABD Sidelying Exercise Name R shoulder abduction Side right Resistance 1 # db Reps/Minutes x20 Comments manual S-I glide for support and elevation Sitting Exercises Lissette Sitting Exercise Name flexion and abduction Side right Reps/Minutes 10x5 AAROM TB Sitting Exercise Name Eccentric fwd flex Side right Resistance 2.2 # ball Reps/Minutes 2x8 Comments cues for eccentric, slow control; HABD next time Standing Exercises Dynamic Hug Standing Exercise Name For SA activation Resistance teal tb lvl 2 Reps/Minutes 2x15 Comments manual assist for R scap protraction wall slide Standing Exercise Name wall slide + SA activation Equipment Used pillow case Reps/Minutes 2x15 Comments arms in ER and BLE slight angled, cues to press hard into wall Row Side bilateral Resistance GTB Equipment Used 2x10 Comments manual assist scap retraction/ depression eccentric control Resisted shoulder flexion Standing Exercise Name fwd flex Side right Resistance 2.2# ball Reps/Minutes 2x8 Comments cues to depress shldr, minimize UT toward 90dg flex Manual Therapy Treatment Joint Mobilizations R shoulder Direction sup > inf glide Grade III Body Position Supine Reps/Duration 5x30 ea Comments with long arm distraction and oscillations btwn sets R scapulothoracic Joint scapula Direction elev/dep, med/lat, protract/ retract Grade II Body Position Sidelying Reps/Duration x10 ea Comments passive, active assisted Manual Techniques Shouler PROM Type PROM fwd flex, ER, HABD Body Position Supine Reps/Duration 4x30 ea PT-OP-T Assessment and Plan Start: 12/21/22 15:17 Freq: Status: Active Protocol: Document 02/11/23 08:17 NM (Rec: 02/11/23 09:23 NM [id number]) Physical Therapy Assessment Goals Strength Impairment Pt with 4- biceps and abduction strength Residential Goal (LTG) Pt with 4/5 strength at biceps and shoulder abduction Progressing, not met 01/18/23 02/04/23: Not met LTG Duration 02/08/23 Golf Impairment Pt concerned about being able to swing a golf club. Executive Communications Manager Goal (LTG) Pt able to chip and putt without increase in R shoulder pain Goal partially met: Pt able to do golf motion with theraband resistance without production in pain. LTG Duration 03/08/23 HEP Impairment Pt unsure of appropriate R shoulder exercises Residential Goal (LTG) Pt independent with HEP LTG Duration 03/08/23 Quick Dash Impairment Pt with Quick Dash score of 22 .7% disability Executive Communications Manager Goal (LTG) Pt with Quick Dash score of < 15% disability LTG Duration 03/08/23 Assessment Summary Assessment Pt tolerated session well and demonstrated improved scapular retraction/depression with rows. Provided manual assist initially into scapular retraction with pt able to replicate motion consistently in later reps. Continued with periscapular strengthening, especially serratus anterior. Pt also demo improved scapular control during mobilization and continues to feel relief with sup>inf glides to improve HABD. Will continue to progress mobility and strengthening activities as tolerated. Pt did not report anterior shoulder pain during exercises today. Pt would benefit from skilled PT to continue shoulder strengthening, maximizing scapular mobility and control, and to improve activity tolerance for PLOF. Physical Therapy Plan Frequency and Duration Frequency of Treatment 2x/Week Duration of treatment (weeks) 11 Plan of Care Start Date 12/21/22 Plan of Care End Date 03/08/23 Therapeutic Interventions Therapeutic Interventions Home Exercise Program,Joint Mobilizations,Manual Therapy, Neuromuscular Re-education, Patient/Caregiver Education, Self-Care/Home Management,Soft Tissue Mobilization,Taping, Therapeutic Activities, Therapeutic Exercises Modalities Cold Pack/Ice Massage,Electric Stimulation,Hot Packs, Ultrasound Next Visit Focus/Plan Next Note Type Treatment Note Next Visit Plan Continue and progress scapular ROM, SA/LT/Rhomboid strengthening to allow strength for RUE strengthening against gravity. Progress R Shoulder strength as tolerated
--- NOTE | 2023-02-17 10:26 | PT.OTN ---
Current Diagnoses Pain in right shoulder (02/17/23) Stiffness of right hand, not elsewhere classified (02/17/23) Stiffness of left hand, not elsewhere classified (02/17/23) Physical Therapy Treatment Note PT-OP-A Visit Information Start: 12/21/22 15:17 Freq: Status: Active Protocol: Document 02/17/23 09:42 AB (Rec: 02/17/23 10:26 AB [id number]) Out-Patient Physical Therapy Visit Information Visit Information Visit Type Treatment Note Visit Note KX modifier needed at 20th tmt POC and PN completed 02/04 Visit Start Time 09:15 Visit Stop Time 10:00 Total Visit Minutes 45 Visit Number 16 PT-OP-B Current Condition Start: 12/21/22 15:17 Freq: Status: Active Protocol: Document 12/24/22 15:20 AM (Rec: 12/24/22 17:23 AM [id number]) Current Condition History of Current Condition Onset Date 1.5 months ago History of Current Condition Pt went to his rheumatoid doctor and she noticed that he had a kurt muscle on his R arm indicating torn biceps. He did not have any pain associated at the time. Pt unsure of how he tore it, though possible from lifting. Pt also reports bilateral hand cramping and spasms. Prior Treatments and Tests MRI indicating biceps tendon tear, AC arthritis, supraspinatus, infraspinatus and subscap tear, glenoid labral tear PT-OP-C Subjective Start: 12/21/22 15:17 Freq: Status: Active Protocol: Document 02/17/23 09:42 AB (Rec: 02/17/23 10:26 AB [id number]) OP-PT Subjective Patient Comments Patient Comments The pt reports he had increased bilateral upper trap pain the day after last session for a couple of days, but he is not sure whether it was due to the session or something he might have done at home. PT-OP-J Posture/Palpation/Skin Start: 12/21/22 15:17 Freq: Status: Active Protocol: Document 12/21/22 15:18 AM (Rec: 12/21/22 17:23 AM [id number]) Posture Evaluation Position Sitting Head/C-Spine Posture Forward Head Shoulder Posture (L) Forward,(R) Forward Palpation Assessment Location R shoulder Palpation Location Tenderness at posterior deltoid area, palpable biceps bulge PT-OP-K Range of Motion Start: 12/21/22 15:17 Freq: Status: Active Protocol: Document 02/04/23 09:02 AM (Rec: 02/04/23 10:56 AM [id number]) Shoulder Goniometric Range of Motion Shoulder Right Active Flexion 145 Abduction 140 Internal Rotation Behind Back (text) T12 Comments ER Aply T3 PT-OP-L Special Tests Start: 12/21/22 15:17 Freq: Status: Active Protocol: Document 12/21/22 15:18 AM (Rec: 12/21/22 17:23 AM [id number]) Special Tests Shoulder Special Tests Empty Can Test Results positive Kurt Biceps Test Results positive PT-OP-M Strength Start: 12/21/22 15:17 Freq: Status: Active Protocol: Document 01/18/23 09:49 AM (Rec: 01/18/23 11:31 AM [id number]) Shoulder Strength Shoulder Manual Muscle Testing Right Abduction (C5) 4- Good- Elbow/Forearm Strength Elbow and Forearm Manual Muscle Testing Right Flexion (C6) 4- Good- PT-OP-Q Treatments Start: 12/21/22 15:17 Freq: Status: Active Protocol: Document 02/17/23 09:42 AB (Rec: 02/17/23 10:26 AB [id number]) Cardio Equipment Upper Body Ergometer (UBE) Duration (Minutes) 6 RPM 31 Other 3 min fwd, 3 min bwd Therapeutic Exercises Sidelying Exercises open book Side bilateral Resistance AROM Reps/Minutes x15 Comments cued segmental sequence HABD, scap glide and HT with arm Sitting Exercises AAROM TB Sitting Exercise Name Eccentric fwd flex Side right Resistance 2.2 # ball Reps/Minutes 2x8 Comments cues for eccentric, slow control; HABD next time Standing Exercises Dynamic Hug Standing Exercise Name For SA activation Resistance teal tb lvl 2 Reps/Minutes 2x15 Comments improved scap protraction, but slight increase in UT symptoms wall slide Standing Exercise Name wall slide + SA activation Equipment Used pillow case Reps/Minutes 2x15 Comments arms in ER and BLE slight angled, cues to press hard into wall Row Side bilateral Resistance GTB Equipment Used 2x10 Comments cues for proper scap retraction/depression to avoid UT compensation Manual Therapy Treatment Joint Mobilizations R shoulder Direction sup > inf glide Grade III Body Position Supine Reps/Duration 5x30 ea Comments with long arm distraction and oscillations btwn sets Manual Techniques Shouler PROM Type PROM fwd flex, ER Body Position Supine Reps/Duration 4x30 ea PT-OP-T Assessment and Plan Start: 12/21/22 15:17 Freq: Status: Active Protocol: Document 02/17/23 09:42 AB (Rec: 02/17/23 10:26 AB [id number]) Physical Therapy Assessment Goals Strength Impairment Pt with 4- biceps and abduction strength Senior Care Goal (LTG) Pt with 4/5 strength at biceps and shoulder abduction Progressing, not met 01/18/23 02/04/23: Not met LTG Duration 02/08/23 Golf Impairment Pt concerned about being able to swing a golf club. Senior Care Goal (LTG) Pt able to chip and putt without increase in R shoulder pain Goal partially met: Pt able to do golf motion with theraband resistance without production in pain. LTG Duration 03/08/23 HEP Impairment Pt unsure of appropriate R shoulder exercises Senior Care Goal (LTG) Pt independent with HEP LTG Duration 03/08/23 Quick Dash Impairment Pt with Quick Dash score of 22 .7% disability Senior Care Goal (LTG) Pt with Quick Dash score of < 15% disability LTG Duration 03/08/23 Assessment Summary Assessment The pt demonstrates good carry over of education provided in previous sessions, as he is better able to avoid UT compensation and engage middle and lower traps and rhomboids . He was provided with education regarding biomechanics of GH and scapulothoracic joints while performing exercises. The pt continues to benefit from skilled PT with progressions as indicated in order to improve his level of function and to return to recreational activities. Physical Therapy Plan Frequency and Duration Frequency of Treatment 2x/Week Duration of treatment (weeks) 11 Plan of Care Start Date 12/21/22 Plan of Care End Date 03/08/23 Therapeutic Interventions Therapeutic Interventions Home Exercise Program,Joint Mobilizations,Manual Therapy, Neuromuscular Re-education, Patient/Caregiver Education, Self-Care/Home Management,Soft Tissue Mobilization,Taping, Therapeutic Activities, Therapeutic Exercises Modalities Cold Pack/Ice Massage,Electric Stimulation,Hot Packs, Ultrasound Next Visit Focus/Plan Next Note Type Treatment Note Next Visit Plan Continue and progress scapular ROM, SA/LT/Rhomboid strengthening to allow strength for RUE strengthening against gravity. Progress R Shoulder strength as tolerated
--- NOTE | 2023-02-23 09:56 | PT.OTN ---
Current Diagnoses Pain in right shoulder (02/23/23) Stiffness of right hand, not elsewhere classified (02/23/23) Stiffness of left hand, not elsewhere classified (02/23/23) Physical Therapy Treatment Note PT-OP-A Visit Information Start: 12/21/22 15:17 Freq: Status: Active Protocol: Document 02/23/23 09:08 NM (Rec: 02/23/23 09:56 NM [id number]) Out-Patient Physical Therapy Visit Information Visit Information Visit Type Treatment Note Visit Note KX modifier needed at 20th tmt POC and PN completed 02/04 Visit Start Time 09:00 Visit Stop Time 09:45 Total Visit Minutes 45 Visit Number 17 PT-OP-B Current Condition Start: 12/21/22 15:17 Freq: Status: Active Protocol: Document 12/24/22 15:20 AM (Rec: 12/24/22 17:23 AM [id number]) Current Condition History of Current Condition Onset Date 1.5 months ago History of Current Condition Pt went to his rheumatoid doctor and she noticed that he had a kurt muscle on his R arm indicating torn biceps. He did not have any pain associated at the time. Pt unsure of how he tore it, though possible from lifting. Pt also reports bilateral hand cramping and spasms. Prior Treatments and Tests MRI indicating biceps tendon tear, AC arthritis, supraspinatus, infraspinatus and subscap tear, glenoid labral tear PT-OP-C Subjective Start: 12/21/22 15:17 Freq: Status: Active Protocol: Document 02/23/23 09:08 NM (Rec: 02/23/23 09:56 NM [id number]) OP-PT Subjective Patient Comments Patient Comments Pt reports that he has no shoulder pain but he does have B upper trap pain, similar to last session. He notices it when he is driving. PT-OP-J Posture/Palpation/Skin Start: 12/21/22 15:17 Freq: Status: Active Protocol: Document 12/21/22 15:18 AM (Rec: 12/21/22 17:23 AM [id number]) Posture Evaluation Position Sitting Head/C-Spine Posture Forward Head Shoulder Posture (L) Forward,(R) Forward Palpation Assessment Location R shoulder Palpation Location Tenderness at posterior deltoid area, palpable biceps bulge PT-OP-K Range of Motion Start: 12/21/22 15:17 Freq: Status: Active Protocol: Document 02/04/23 09:02 AM (Rec: 02/04/23 10:56 AM [id number]) Shoulder Goniometric Range of Motion Shoulder Right Active Flexion 145 Abduction 140 Internal Rotation Behind Back (text) T12 Comments ER Aply T3 PT-OP-L Special Tests Start: 12/21/22 15:17 Freq: Status: Active Protocol: Document 12/21/22 15:18 AM (Rec: 12/21/22 17:23 AM [id number]) Special Tests Shoulder Special Tests Empty Can Test Results positive Kurt Biceps Test Results positive PT-OP-M Strength Start: 12/21/22 15:17 Freq: Status: Active Protocol: Document 01/18/23 09:49 AM (Rec: 01/18/23 11:31 AM [id number]) Shoulder Strength Shoulder Manual Muscle Testing Right Abduction (C5) 4- Good- Elbow/Forearm Strength Elbow and Forearm Manual Muscle Testing Right Flexion (C6) 4- Good- PT-OP-Q Treatments Start: 12/21/22 15:17 Freq: Status: Active Protocol: Document 02/23/23 09:08 NM (Rec: 02/23/23 09:56 NM [id number]) Therapeutic Exercises Prone Exercises Y Prone Exercise Name for LT recruitment, decrease UT activation Side right Reps/Minutes 2x10 Comments decrease ROM to stay painfree T Prone Exercise Name for MT recruitment, decrease UT involvment Side right Resistance AROM Reps/Minutes 2x10 Comments cues for scap control; decrease ROM to be painfree Shoulder extension Side right Resistance AROM Reps/Minutes 2x10 Comments For LT/MT recruitment, UT overactivation Sidelying Exercises R shldr ER Side right Resistance 2# db Equipment Used towel under elbow Reps/Minutes 2x15 Comments for better infraspinatus activation, MT/LT involvement open book Side bilateral Resistance AROM Reps/Minutes x15 Comments cued segmental sequence HABD, scap glide and HT with arm R shld ABD Sidelying Exercise Name R shoulder abduction Side right Resistance 1. 1# db, 2. AROM Reps/Minutes 2x10 Comments manual S-I glide for support and elevation Standing Exercises Wall walks Standing Exercise Name pt in ER, walking hands into further ER for RC recruitment Side bilateral Resistance peach tb Equipment Used wall Reps/Minutes 2x12 ea Dynamic Hug Standing Exercise Name For SA activation Resistance peach tb today d/t pain Reps/Minutes 2x15 Comments improved scap protraction, but slight increase in UT symptoms Wall push up Standing Exercise Name push up plus Reps/Minutes 2x10 self STMs Side right Equipment Used theracane Reps/Minutes x10 ea spot Comments For UT, Rhomboid soreness wall slide Standing Exercise Name wall slide + SA activation Equipment Used pillow case Reps/Minutes 2x15 Comments arms in ER and BLE slight angled, cues to press hard into wall Manual Therapy Treatment Soft Tissue Mobilization R shoulder Body Location UT Mobilization Type Sustained Pressure,Other Intensity/Depth Deep Body Position Sidelying Comments Contract-Relax 2x10; with trigger point release and sustained pressure on UT. Demos relief with repetition Joint Mobilizations R shoulder Direction sup > inf glide Grade III Body Position Supine Reps/Duration 5x30 ea Comments with long arm distraction and oscillations btwn sets R scapulothoracic Joint scapula Direction elev/dep, med/lat, protract/ retract Grade II Body Position Sidelying Reps/Duration x10 ea Comments passive Manual Techniques Shouler PROM Type PROM fwd flex, ER, HABD Body Position Supine Reps/Duration 4x30 ea PT-OP-T Assessment and Plan Start: 12/21/22 15:17 Freq: Status: Active Protocol: Document 02/23/23 09:08 NM (Rec: 02/23/23 09:56 NM [id number]) Physical Therapy Assessment Rehab Potential Rehabilitation Potential Good Evaluation Complexity Number of Personal Factors/Comorbidities 1-2 Number of Body Systems Impaired 1-2 Clinical Presentation at Evaluation Stable Impairments Impairments Activity Tolerance,Functional Activities,Pain,ROM,Soft Tissue Mobility,Strength Goals Strength Impairment Pt with 4- biceps and abduction strength Acute Care Surgeon Goal (LTG) Pt with 4/5 strength at biceps and shoulder abduction Progressing, not met 01/18/23 02/04/23: Not met LTG Duration 02/08/23 Golf Impairment Pt concerned about being able to swing a golf club. Acute Care Surgeon Goal (LTG) Pt able to chip and putt without increase in R shoulder pain Goal partially met: Pt able to do golf motion with theraband resistance without production in pain. LTG Duration 03/08/23 HEP Impairment Pt unsure of appropriate R shoulder exercises Longterm Goal (LTG) Pt independent with HEP LTG Duration 03/08/23 Quick Dash Impairment Pt with Quick Dash score of 22 .7% disability Longterm Goal (LTG) Pt with Quick Dash score of < 15% disability LTG Duration 03/08/23 Assessment Summary Assessment Pt tolerated treatment well. Due to the continued pain in his B upper trap muscles, regressed exercises to prone and sidelying table activities to improve activation of lower/middle traps and rhomboids and to decrease upper trap overactivation. Pt demos improvements in avoiding UT compensation during arm elevation activities. UE strengthening also targeting serratus anterior to allow for better scapular force coupling motion during arm elevation. Exercises performed within a painfree range to limit stress on injured rotator cuff and biceps tendon . Manual tmt today emphasizing scapular mechanics and soft tissue of the upper trap to decrease pain. Pt would benefit from skilled PT to address impairments in shoulder mobility and strength , scapular mechanics to decrease compensations, and to improve activity tolerance/ pain management. Physical Therapy Plan Frequency and Duration Frequency of Treatment 2x/Week Duration of treatment (weeks) 11 Plan of Care Start Date 12/21/22 Plan of Care End Date 03/08/23 Therapeutic Interventions Therapeutic Interventions Home Exercise Program,Joint Mobilizations,Manual Therapy, Neuromuscular Re-education, Patient/Caregiver Education, Self-Care/Home Management,Soft Tissue Mobilization,Taping, Therapeutic Activities, Therapeutic Exercises Modalities Cold Pack/Ice Massage,Electric Stimulation,Hot Packs, Ultrasound Next Visit Focus/Plan Next Note Type Treatment Note Next Visit Plan Address UT pain this visit. Continue and progress scapular ROM, SA/LT/Rhomboid, shoulder strengthening to allow strength for RUE strengthening against gravity as tolerated.
--- NOTE | 2023-02-25 10:07 | PT.OTN ---
Current Diagnoses Pain in right shoulder (02/25/23) Stiffness of right hand, not elsewhere classified (02/25/23) Stiffness of left hand, not elsewhere classified (02/25/23) Physical Therapy Treatment Note PT-OP-A Visit Information Start: 12/21/22 15:17 Freq: Status: Active Protocol: Document 02/25/23 08:20 NM (Rec: 02/25/23 08:59 NM [id number]) Out-Patient Physical Therapy Visit Information Visit Information Visit Type Treatment Note Visit Note KX modifier needed at 20th tmt POC and PN completed 02/04 Visit Start Time 08:15 Visit Stop Time 09:00 Total Visit Minutes 45 Visit Number 18 PT-OP-B Current Condition Start: 12/21/22 15:17 Freq: Status: Active Protocol: Document 12/24/22 15:20 AM (Rec: 12/24/22 17:23 AM [id number]) Current Condition History of Current Condition Onset Date 1.5 months ago History of Current Condition Pt went to his rheumatoid doctor and she noticed that he had a kurt muscle on his R arm indicating torn biceps. He did not have any pain associated at the time. Pt unsure of how he tore it, though possible from lifting. Pt also reports bilateral hand cramping and spasms. Prior Treatments and Tests MRI indicating biceps tendon tear, AC arthritis, supraspinatus, infraspinatus and subscap tear, glenoid labral tear PT-OP-C Subjective Start: 12/21/22 15:17 Freq: Status: Active Protocol: Document 02/25/23 08:20 NM (Rec: 02/25/23 08:59 NM [id number]) OP-PT Subjective Patient Comments Patient Comments Pt reports that he has no shoulder pain and his upper trap pain is reduced compared to prior sessions. He reports compliance with exercises. PT-OP-J Posture/Palpation/Skin Start: 12/21/22 15:17 Freq: Status: Active Protocol: Document 12/21/22 15:18 AM (Rec: 12/21/22 17:23 AM [id number]) Posture Evaluation Position Sitting Head/C-Spine Posture Forward Head Shoulder Posture (L) Forward,(R) Forward Palpation Assessment Location R shoulder Palpation Location Tenderness at posterior deltoid area, palpable biceps bulge PT-OP-K Range of Motion Start: 12/21/22 15:17 Freq: Status: Active Protocol: Document 02/04/23 09:02 AM (Rec: 02/04/23 10:56 AM [id number]) Shoulder Goniometric Range of Motion Shoulder Right Active Flexion 145 Abduction 140 Internal Rotation Behind Back (text) T12 Comments ER Aply T3 PT-OP-L Special Tests Start: 12/21/22 15:17 Freq: Status: Active Protocol: Document 12/21/22 15:18 AM (Rec: 12/21/22 17:23 AM [id number]) Special Tests Shoulder Special Tests Empty Can Test Results positive Kurt Biceps Test Results positive PT-OP-M Strength Start: 12/21/22 15:17 Freq: Status: Active Protocol: Document 01/18/23 09:49 AM (Rec: 01/18/23 11:31 AM [id number]) Shoulder Strength Shoulder Manual Muscle Testing Right Abduction (C5) 4- Good- Elbow/Forearm Strength Elbow and Forearm Manual Muscle Testing Right Flexion (C6) 4- Good- PT-OP-Q Treatments Start: 12/21/22 15:17 Freq: Status: Active Protocol: Document 02/25/23 08:20 NM (Rec: 02/25/23 08:59 NM [id number]) Therapeutic Exercises Standing Exercises scaption Side right Resistance 1# db Reps/Minutes 2x8 Comments no pain, up to 110 deg elevation Wall walks Standing Exercise Name hands pronated today Side bilateral Resistance orange tb Equipment Used wall Reps/Minutes 1x10 ft Dynamic Hug Standing Exercise Name For SA activation Resistance orange tb (lvl 2) Reps/Minutes 2x15 Comments good scap protraction, cues to relax UT standing long arm pull down Standing Exercise Name Lat pull down (arms ext) Side bilateral Resistance blue tb Reps/Minutes 2x15 Comments cues to relax shoulders prior to contraction Row Standing Exercise Name middle row Side bilateral Resistance purple tb Equipment Used 2x15 Comments demos improved scap retraction ; cues to relax UT Resisted shoulder flexion Standing Exercise Name 1. Biceps shldr flex upper cut, 2. ER + shdlr flex Side right Resistance blue tb Reps/Minutes 2x15 Comments eryn well, no pain 3-way biceps Standing Exercise Name 1. supinated, 2. neutral, 3. pronated Side right Resistance 2# tball Reps/Minutes 2x10 ea Comments soreness in ant shoulder after 2nd set Manual Therapy Treatment Joint Mobilizations R shoulder Direction sup > inf glide, Ant-post glide Grade III Body Position Supine Reps/Duration 6x30 ea Comments with long arm distraction and 30 oscillations btwn sets Manual Techniques Shouler PROM Type PROM fwd flex, ER, HABD Body Position Supine Reps/Duration 4x30 ea PT-OP-T Assessment and Plan Start: 12/21/22 15:17 Freq: Status: Active Protocol: Document 02/25/23 08:20 NM (Rec: 02/25/23 08:59 NM [id number]) Physical Therapy Assessment Rehab Potential Rehabilitation Potential Good Evaluation Complexity Number of Personal Factors/Comorbidities 1-2 Number of Body Systems Impaired 1-2 Clinical Presentation at Evaluation Stable Impairments Impairments Activity Tolerance,Functional Activities,Pain,ROM,Soft Tissue Mobility,Strength Goals Strength Impairment Pt with 4- biceps and abduction strength Care Home Goal (LTG) Pt with 4/5 strength at biceps and shoulder abduction Progressing, not met 01/18/23 02/04/23: Not met LTG Duration 02/08/23 Golf Impairment Pt concerned about being able to swing a golf club. Care Home Goal (LTG) Pt able to chip and putt without increase in R shoulder pain Goal partially met: Pt able to do golf motion with theraband resistance without production in pain. LTG Duration 03/08/23 HEP Impairment Pt unsure of appropriate R shoulder exercises Care Consultant Goal (LTG) Pt independent with HEP LTG Duration 03/08/23 Quick Dash Impairment Pt with Quick Dash score of 22 .7% disability Care Consultant Goal (LTG) Pt with Quick Dash score of < 15% disability LTG Duration 03/08/23 Assessment Summary Assessment Pt tolerated treatment well. He has reduced upper trap discomfort today, so progressed shoulder and scapular muscle strengthening. Pt reports no pain or discomfort in bicipital tendon or rotator cuff. He continues to have upper trap overactivation during shoulder elevation exercises, which is reduced with frequent cueing. Will continue to progress rotator cuff and shoulder strengthening within available ROM as tolerated. Manual tmt to assist normalization of scapulo-humeral rhythm during shldr abd and to maximize mobility. Pt is due for PN in 2 visits; will assess whether to continue PT or move to maintenance with HEP. Pt would benefit from skilled PT to address impairments in shoulder and scapular strength , mobility, and endurance in order to improve QOL and maintain as much R shoulder strength/function as possible. Physical Therapy Plan Frequency and Duration Frequency of Treatment 2x/Week Duration of treatment (weeks) 11 Plan of Care Start Date 12/21/22 Plan of Care End Date 03/08/23 Therapeutic Interventions Therapeutic Interventions Home Exercise Program,Joint Mobilizations,Manual Therapy, Neuromuscular Re-education, Patient/Caregiver Education, Self-Care/Home Management,Soft Tissue Mobilization,Taping, Therapeutic Activities, Therapeutic Exercises Modalities Cold Pack/Ice Massage,Electric Stimulation,Hot Packs, Ultrasound Next Visit Focus/Plan Next Note Type Treatment Note Next Visit Plan Address UT pain this visit. Continue and progress scapular ROM, SA/LT/Rhomboid, shoulder strengthening to allow strength for RUE strengthening against gravity as tolerated.
--- NOTE | 2023-03-02 09:00 | PT.OTN ---
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 He did not have any pain associated at the time. Pt unsure of how he tore it, though possible from lifting. Pt also reports bilateral hand cramping and spasms. Prior Treatments and Tests MRI indicating biceps tendon tear, AC arthritis, supraspinatus, infraspinatus and subscap tear, glenoid labral tear PT-OP-C Subjective Start: 12/21/22 15:17 Freq: Status: Active Protocol: Document 03/02/23 09:03 SP (Rec: 03/02/23 09:52 SP [id number]) OP-PT Subjective Patient Comments Patient Comments Pt reports doing better, probably not going to get full ROM but ready return progress own. Pt requested review past HEP and progression to golf review. Patient Questionnaires Quick Dash- Upper Extremity Quick Dash UE Score 11.36 Quick Dash UE Impairment 1 to 19% Impaired (Score 1-19) PT-OP-J Posture/Palpation/Skin Start: 12/21/22 15:17 Freq: Status: Active Protocol: Document 12/21/22 15:18 AM (Rec: 12/21/22 17:23 AM [id number]) Posture Evaluation Position Sitting Head/C-Spine Posture Forward Head Shoulder Posture (L) Forward,(R) Forward Palpation Assessment Location R shoulder Palpation Location Tenderness at posterior deltoid area, palpable biceps bulge PT-OP-K Range of Motion Start: 12/21/22 15:17 Freq: Status: Active Protocol: Document 03/02/23 09:03 SP (Rec: 03/02/23 09:52 SP [id number]) Shoulder Goniometric Range of Motion Shoulder R shoulder standing AROM Shoulder ROM WFL No Testing Position Standing Flexion 148 Extension 40 Abduction 143 External Rotation at 0 degrees Abduction 80 Internal Rotation Behind Back (text) T11 Right Active Shoulder ROM WFL No Testing Position Sitting Flexion 145 Abduction 135 Internal Rotation Behind Back (text) T11 Comments ER Aply T3 03/02/23: R shld AROM FF same 140* ABD decrease 5 deg 135* IR behind back gain 1 vertebra T11. Standing R shld AROM: FF 148* ABD 143* (slight fwd) ER 80* Extension 40* PT-OP-L Special Tests Start: 12/21/22 15:17 Freq: Status: Active Protocol: Document 12/21/22 15:18 AM (Rec: 12/21/22 17:23 AM [id number]) Special Tests Shoulder Special Tests Empty Can Test Results positive Kurt Biceps Test Results positive PT-OP-M Strength Start: 12/21/22 15:17 Freq: Status: Active Protocol: Document 01/18/23 09:49 AM (Rec: 01/18/23 11:31 AM [id number]) Shoulder Strength Shoulder Manual Muscle Testing Right Abduction (C5) 4- Good- Elbow/Forearm Strength Elbow and Forearm Manual Muscle Testing Right Flexion (C6) 4- Good- PT-OP-Q Treatments Start: 12/21/22 15:17 Freq: Status: Active Protocol: Document 03/02/23 09:03 SP (Rec: 03/02/23 09:52 SP [id number]) Cardio Equipment Upper Body Ergometer (UBE) Duration (Minutes) 6 RPM 50 Seat Position 12 Height 4 Other 1 min f/b alternating Therapeutic Exercises Standing Exercises shld eccentric ER/concentric fwd golf swing Standing Exercise Name initiated inPT (small range beginning pre swing golf swing )- added to HEP Side right Resistance GTB, elbow bent approx 120 deg Equipment Used declined HOs Reps/Minutes x10 Comments eccentric ER stretch, concentric fwd change direction TS rotation Standing Exercise Name 1. long arm 2. cross chest 3. long arm ABD/ADD front body Side bilateral Resistance AROM Equipment Used golf club Reps/Minutes multiple reps review warm up golf Comments good feedback response does pre golfing warm up Wall walks Standing Exercise Name hands pronated today Side bilateral Resistance orange tb Equipment Used wall Reps/Minutes 20 ft Comments Good posturing, cued slow con/ ecc with lift vs slide 03/02- good form/tiring Dynamic Hug Standing Exercise Name For SA activation Resistance orange tb (lvl 2) (anchored behind back/HABD/HADD) Reps/Minutes 2 min total Comments good scap protraction, cues to relax [place] golf swing Standing Exercise Name assess for ROM feedback goal Resistance golf club Equipment Used L swing Reps/Minutes x15 reps Comments little decrease R shld ER into pre swing, TS rotation stiffness 3-way biceps Standing Exercise Name 1. supinated, 2. neutral, 3. pronated Side bilateral Resistance 3.3# red small tball Reps/Minutes 2x10 ea Comments soreness in ant shoulder after 2nd set Manual Therapy Treatment Soft Tissue Mobilization R shoulder Body Location R distal pec Mobilization Type Sustained Pressure,Other Intensity/Depth Deep Body Position Standing Comments MWM R Shld IR/ER R biceps Body Location R biceps, deltoids Mobilization Type Strumming,Sustained Pressure, Other Intensity/Depth Moderate Body Position Standing Comments manual STM, MWM R shld IR/ER ROM small range PT-OP-T Assessment and Plan Start: 12/21/22 15:17 Freq: Status: Active Protocol: Document 03/02/23 09:03 SP (Rec: 03/02/23 09:52 SP [id number]) Physical Therapy Assessment Goals Strength Impairment Pt with 4- biceps and abduction strength Training Engineer Goal (LTG) Pt with 4/5 strength at biceps and shoulder abduction Progressing, not met 01/18/23 02/04/23: Not met 03/02/23: 3 way tball 3.3 red tball LTG Duration 02/08/23 progressing 03/02/23 Golf Impairment Pt concerned about being able to swing a golf club. Training Engineer Goal (LTG) Pt able to chip and putt without increase in R shoulder pain Goal partially met: Pt able to do golf motion with theraband resistance without production in pain. 03/02/23: GOAL MET: no pain with chipping/putting. R shld AROM Seated: FF same 140* ABD decrease 5 deg 135* IR behind back gain 1 vertebra T11. Standing R shld AROM: FF 148* ABD 143* (slight fwd) ER 80* Extension 40* LTG Duration 03/08/23 GOAL MET HEP Impairment Pt unsure of appropriate R shoulder exercises Snf Goal (LTG) Pt independent with HEP LTG Duration 03/08/23 Quick Dash Impairment Pt with Quick Dash score of 22 .7% disability Snf Goal (LTG) Pt with Quick Dash score of < 15% disability 03/02/23: GOAL MET: 11.36= 1-19 % impaired LTG Duration 03/08/23 GOAL MET Progress Towards Goals Progress Towards Goals Progressing Toward Goals Progress Comments 03/02/23: R shld AROM Seated: FF same 140* ABD decrease 5 deg 135* IR behind back gain 1 vertebra T11. Standing R shld AROM: FF 148* ABD 143* (slight fwd) ER 80* Extension 40* Assessment Summary Assessment Pt good response to ther ex review today, continues to have lack of full AROM but pleased with progress making and ready to DC to progress on own. Pleased with ROM and able to swing golf club today. Continues to demonstrate limitation in R shld ER end range for pre swing golf club. Noted increase little more range post con/ecc resisted eccentric R shld ER with green TB today, noted improved preswing post. Pt wanting to finalize HEP next tx and DC to HEP. Physical Therapy Plan Frequency and Duration Frequency of Treatment 2x/Week Duration of treatment (weeks) 11 Plan of Care Start Date 12/21/22 Plan of Care End Date 03/08/23 Therapeutic Interventions Therapeutic Interventions Home Exercise Program,Joint Mobilizations,Manual Therapy, Neuromuscular Re-education, Patient/Caregiver Education, Self-Care/Home Management,Soft Tissue Mobilization,Taping, Therapeutic Activities, Therapeutic Exercises Modalities Cold Pack/Ice Massage,Electric Stimulation,Hot Packs, Ultrasound Discharge Physical Therapy Discharge Reasons Patient Request Discharge Comments Pt request finalize HEP next tx and DC to HEP. Next Visit Focus/Plan Next Note Type Discharge Summary Next Visit Plan Finalize HEP, DC to HEP. Address UT pain this visit. Continue and progress scapular ROM, SA/LT/Rhomboid, shoulder strengthening to allow strength for RUE strengthening against gravity as tolerated. POC:
--- NOTE | 2023-03-04 10:13 | PT.OTN ---
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 He did not have any pain associated at the time. Pt unsure of how he tore it, though possible from lifting. Pt also reports bilateral hand cramping and spasms. Prior Treatments and Tests MRI indicating biceps tendon tear, AC arthritis, supraspinatus, infraspinatus and subscap tear, glenoid labral tear PT-OP-C Subjective Start: 12/21/22 15:17 Freq: Status: Active Protocol: Document 03/04/23 09:19 NM (Rec: 03/04/23 10:12 NM [id number]) OP-PT Subjective Patient Comments Patient Comments Pt presents to clinic with 0/ 10 shoulder pain, no soreness or discomfort in shoulder or surrounding musculature. He states that he only has pain with active abduction. Pt reports improvement in R shoulder ROM, strength, and understanding of condition since beginning PT, even though he does not have full ROM. He agrees to discharge today with HEP. PT-OP-J Posture/Palpation/Skin Start: 12/21/22 15:17 Freq: Status: Active Protocol: Document 12/21/22 15:18 AM (Rec: 12/21/22 17:23 AM [id number]) Posture Evaluation Position Sitting Head/C-Spine Posture Forward Head Shoulder Posture (L) Forward,(R) Forward Palpation Assessment Location R shoulder Palpation Location Tenderness at posterior deltoid area, palpable biceps bulge PT-OP-K Range of Motion Start: 12/21/22 15:17 Freq: Status: Active Protocol: Document 03/04/23 09:19 NM (Rec: 03/04/23 10:12 NM [id number]) Shoulder Goniometric Range of Motion Shoulder Left Active Shoulder ROM WFL Yes Testing Position Sitting Flexion 145 Abduction 145 Internal Rotation Behind Back (text) T11 Comments Aply T6 ER Right Active Shoulder ROM WFL No Testing Position Sitting Flexion 160 Abduction 165 Internal Rotation Behind Back (text) T10 Comments [place] ER: T3 03/02/23: R shld AROM FF same 140* ABD decrease 5 deg 135* IR behind back gain 1 vertebra T11. PT-OP-L Special Tests Start: 12/21/22 15:17 Freq: Status: Active Protocol: Document 12/21/22 15:18 AM (Rec: 12/21/22 17:23 AM [id number]) Special Tests Shoulder Special Tests Empty Can Test Results positive Kurt Biceps Test Results positive PT-OP-M Strength Start: 12/21/22 15:17 Freq: Status: Active Protocol: Document 03/04/23 09:19 NM (Rec: 03/04/23 10:12 NM [id number]) Shoulder Strength Shoulder Manual Muscle Testing Right Comments 03/04/23: Flexion 5/5 Abduction 4+/5 (min pain) ER 5/5 IR 5/5 Elbow/Forearm Strength Elbow and Forearm Manual Muscle Testing Right Comments 03/04/23: elbow flex 4+/5 (no pain) elbow ext 5/5 PT-OP-Q Treatments Start: 12/21/22 15:17 Freq: Status: Active Protocol: Document 03/04/23 09:19 NM (Rec: 03/04/23 10:12 NM [id number]) Therapeutic Exercises Standing Exercises D2 flex Side right Reps/Minutes 2x8 Comments cue for no shoulder shrug, decrease range Resisted B shldr ER + flex Side bilateral Resistance [place] green tb Reps/Minutes 2x10 Comments cues for shoulder flex shld eccentric ER/concentric fwd golf swing Standing Exercise Name increased ROM so dec tb resistance Side right Resistance orange tb, 1st set elbow bent 120deg, 2nd set elbow straight Reps/Minutes 1x15 ea Comments eccentric ER stretch, concentric fwd change direction TS rotation Standing Exercise Name quadruped Side bilateral Resistance AROM Equipment Used elbow bent on rotating side Reps/Minutes 1x15 scaption Side bilateral Resistance 1# db Equipment Used mirror for visual cues Reps/Minutes 2x10 Comments no pain, up to 110 deg elevation before shldr shrug Wall walks Standing Exercise Name progressed to wall clocks Side bilateral Resistance level 1 b/c progression Equipment Used wall Reps/Minutes 5 cycles Comments cues for good upright posture, elbows by side golf swing Standing Exercise Name assess for ROM feedback goal Resistance golf club Equipment Used L swing Reps/Minutes 1x5 reps Comments no pain reported; thoracic spine stiff Shoulder press Side bilateral Resistance 3.3# red tball Reps/Minutes 2x8 3-way biceps Standing Exercise Name 1. supinated, 2. neutral, 3. pronated Side bilateral Resistance 3.3# red small tball Reps/Minutes 2x10 Self-Care/Home Management Treatment Education Patient Education Home Exercise Program,Pain Management,Posture Other Education Pt issued HEP with final exercises for d/c today. PT and pt discussed importance of maintaining progress from PT sessions by performing HEP after d/c. Pt instructed to continue other HEP and alternating exercises by the day to prevent fatiguing shoulder. Pt verbalizes agreement. PT-OP-T Assessment and Plan Start: 12/21/22 15:17 Freq: Status: Active Protocol: Document 03/04/23 09:19 NM (Rec: 03/04/23 10:12 NM [id number]) Physical Therapy Assessment Rehab Potential Rehabilitation Potential Good Evaluation Complexity Number of Personal Factors/Comorbidities 1-2 Number of Body Systems Impaired 1-2 Clinical Presentation at Evaluation Stable Impairments Impairments Activity Tolerance,Functional Activities,Pain,ROM,Soft Tissue Mobility,Strength Goals Strength Impairment Pt with 4- biceps and abduction strength Blaster Helper Goal (LTG) Pt with 4/5 strength at biceps and shoulder abduction Progressing, not met 01/18/23 02/04/23: Not met 03/02/23: 3 way tball 3.3 red tball 03/04/23: R biceps 4+/5, R shldr abduction 4+/5 LTG Duration 02/08/23 MET 03/04/23 Golf Impairment Pt concerned about being able to swing a golf club. Blaster Helper Goal (LTG) Pt able to chip and putt without increase in R shoulder pain Goal partially met: Pt able to do golf motion with theraband resistance without production in pain. 03/02/23: GOAL MET: no pain with chipping/putting. R shld AROM Seated: FF same 140* ABD decrease 5 deg 135* IR behind back gain 1 vertebra T11. Standing R shld AROM: FF 148* ABD 143* (slight fwd) ER 80* Extension 40* LTG Duration 03/08/23 GOAL MET HEP Impairment Pt unsure of appropriate R shoulder exercises Blaster Helper Goal (LTG) Pt independent with HEP LTG Duration 03/08/23 GOAL MET Quick Dash Impairment Pt with Quick Dash score of 22 .7% disability Jail Goal (LTG) Pt with Quick Dash score of < 15% disability 03/02/23: GOAL MET: 11.36= 1-19 % impaired LTG Duration 03/08/23 GOAL MET Progress Towards Goals Progress Towards Goals Goals Met Assessment Summary Assessment Pt tolerated tm well. Tmt focus on finalizing HEP for discharge today with exercises targeting maintaining rotator cuff and biceps strength. He continues to have lack of full AROM; however, his R shoulder AROM has improved since IE. He is now up to 160 deg R shoulder flex, 165 deg R shldr abduction, an improvement of >20 deg. He is also now painfree with all movements except minimal pain with active shoulder abduction. Overall, he pleased with his progress since beginning PT. Continued with swinging the golf club today to address his goal of returning to golf. He demos a limitation in R shld ER end range for pre swing golf club; however, he is able to move throughout the motion with good speed/form and without pain. Issued HEP issued with: T spine rotation, 3 way bicep curls, bilateral ER + shldr fwd flex, D2 flexion. Physical Therapy Plan Frequency and Duration Frequency of Treatment 2x/Week Duration of treatment (weeks) 11 Plan of Care Start Date 12/21/22 Plan of Care End Date 03/08/23 Therapeutic Interventions Therapeutic Interventions Home Exercise Program,Joint Mobilizations,Manual Therapy, Neuromuscular Re-education, Patient/Caregiver Education, Self-Care/Home Management,Soft Tissue Mobilization,Taping, Therapeutic Activities, Therapeutic Exercises Modalities Cold Pack/Ice Massage,Electric Stimulation,Hot Packs, Ultrasound Discharge Physical Therapy Discharge Reasons Goals Met Discharge Comments Goals met and pt request finalize HEP and DC to HEP. Next Visit Focus/Plan Next Note Type Discharge Summary
--- NOTE | 2023-03-04 10:27 | PT.OPDS ---
Current Diagnoses Pain in right shoulder (03/04/23) Stiffness of right hand, not elsewhere classified (03/04/23) Stiffness of left hand, not elsewhere classified (03/04/23) Visit Care Team Role Provider Type Gurpreet Mckenzie DO Attending Provider Physician Family Provider Primary Care Provider Referring Provider Specialty: Family Practice Address: [address] [place] [address] Email: Visit Number Visit Number 20 Discharge Summary PT-OP-B Current Condition Start: 12/21/22 15:17 Freq: Status: Active Protocol: Document 12/24/22 15:20 AM (Rec: 12/24/22 17:23 AM [id number]) Current Condition History of Current Condition Onset Date 1.5 months ago History of Current Condition Pt went to his rheumatoid doctor and she noticed that he had a kurt muscle on his R arm indicating torn biceps. He did not have any pain associated at the time. Pt unsure of how he tore it, though possible from lifting. Pt also reports bilateral hand cramping and spasms. Prior Treatments and Tests MRI indicating biceps tendon tear, AC arthritis, supraspinatus, infraspinatus and subscap tear, glenoid labral tear PT-OP-C Subjective Start: 12/21/22 15:17 Freq: Status: Active Protocol: Document 03/04/23 09:19 NM (Rec: 03/04/23 10:27 NM [id number]) OP-PT Subjective Patient Comments Patient Comments Pt presents to clinic with 0/ 10 shoulder pain, no soreness or discomfort in shoulder or surrounding musculature. He states that he only has pain with active abduction. Pt reports improvement in R shoulder ROM, strength, and understanding of condition since beginning PT, even though he does not have full ROM. He agrees to discharge today with HEP. Patient Reported Progress Improving PT-OP-J Posture/Palpation/Skin Start: 12/21/22 15:17 Freq: Status: Active Protocol: Document 12/21/22 15:18 AM (Rec: 12/21/22 17:23 AM [id number]) Posture Evaluation Position Sitting Head/C-Spine Posture Forward Head Shoulder Posture (L) Forward,(R) Forward Palpation Assessment Location R shoulder Palpation Location Tenderness at posterior deltoid area, palpable biceps bulge PT-OP-K Range of Motion Start: 12/21/22 15:17 Freq: Status: Active Protocol: Document 03/04/23 09:19 NM (Rec: 03/04/23 10:27 NM [id number]) Shoulder Goniometric Range of Motion Shoulder Right Active Shoulder ROM WFL No Testing Position Sitting Flexion 160 Abduction 165 Internal Rotation Behind Back (text) T10 Comments [place]y ER: T3 03/02/23: R shld AROM FF same 140* ABD decrease 5 deg 135* IR behind back gain 1 vertebra T11. PT-OP-L Special Tests Start: 12/21/22 15:17 Freq: Status: Active Protocol: Document 12/21/22 15:18 AM (Rec: 12/21/22 17:23 AM [id number]) Special Tests Shoulder Special Tests Empty Can Test Results positive Kurt Biceps Test Results positive PT-OP-M Strength Start: 12/21/22 15:17 Freq: Status: Active Protocol: Document 03/04/23 09:19 NM (Rec: 03/04/23 10:27 NM [id number]) Shoulder Strength Shoulder Manual Muscle Testing Right Comments 03/04/23: Flexion 5/5 Abduction 4+/5 (min pain) ER 5/5 IR 5/5 Left Flexion 5 Normal Abduction (C5) 5 Normal External Rotation 5 Normal Internal Rotation 5 Normal Elbow/Forearm Strength Elbow and Forearm Manual Muscle Testing Right Comments 03/04/23: elbow flex 4+/5 (no pain) elbow ext 5/5 PT-OP-T Assessment and Plan Start: 12/21/22 15:17 Freq: Status: Active Protocol: Document 03/04/23 09:19 NM (Rec: 03/04/23 10:27 NM [id number]) Physical Therapy Assessment Rehab Potential Rehabilitation Potential Good Evaluation Complexity Number of Personal Factors/Comorbidities 1-2 Number of Body Systems Impaired 1-2 Clinical Presentation at Evaluation Stable Impairments Impairments Activity Tolerance,Functional Activities,Pain,ROM,Soft Tissue Mobility,Strength Goals Strength Impairment Pt with 4- biceps and abduction strength Share[employer] Developer Goal (LTG) Pt with 4/5 strength at biceps and shoulder abduction Progressing, not met 01/18/23 02/04/23: Not met 03/02/23: 3 way tball 3.3 red tball 03/04/23: R biceps 4+/5, R shldr abduction 4+/5 LTG Duration 02/08/23 MET 03/04/23 Golf Impairment Pt concerned about being able to swing a golf club. [employer] Developer Goal (LTG) Pt able to chip and putt without increase in R shoulder pain Goal partially met: Pt able to do golf motion with theraband resistance without production in pain. 03/02/23: GOAL MET: no pain with chipping/putting. R shld AROM Seated: FF same 140* ABD decrease 5 deg 135* IR behind back gain 1 vertebra T11. Standing R shld AROM: FF 148* ABD 143* (slight fwd) ER 80* Extension 40* LTG Duration 03/08/23 GOAL MET HEP Impairment Pt unsure of appropriate R shoulder exercises [facility] Goal (LTG) Pt independent with HEP LTG Duration 03/08/23 GOAL MET Quick Dash Impairment Pt with Quick Dash score of 22 .7% disability [employer] Developer Goal (LTG) Pt with Quick Dash score of < 15% disability 03/02/23: GOAL MET: 11.36= 1-19 % impaired LTG Duration 03/08/23 GOAL MET Progress Towards Goals Progress Towards Goals Goals Met Assessment Summary Assessment Pt has been seen in clinic since 11/2022 for R shoulder pain related to his biceps tendon tear and rotator cuff tear. Since , he reports improvements in pain management, normally 0/10 except with active abduction. Although he still demos lack of full AROM, his R shoulder AROM has improved since November. He can now achieve 160 deg R shoulder flex, 165 deg R shldr abduction, an improvement of >20 deg. He is also now painfree with all movements except minimal pain with active shoulder abduction . Pt is able to stabilize his R scapular and shoulder against resistance and demos 4 +/5 to 5/5 strength for global shoulder strength. Overall, he pleased with his progress since beginning PT and reports that he can participate in all ADLs/IADLS with little to no difficulty as reported by a lower Quickdash score. Pt is looking to return to golfing, so continued with swinging the golf club today to address his goal of returning to golf. He still demos a limitation in R shld ER end range for pre swing golf club; however, he is able to move throughout the motion with good speed/form and without pain. HEP issued targeting rotator cuff and bicep strengthening for discharge with: T spine rotation, 3 way bicep curls, bilateral ER + shldr fwd flex, D2 flexion. PT and pt are agreeable to discharge as pt has met goals and demos improvement; he ready to progress to independent activity. PT instructed pt to seek care of PCP if any changes in condition and for new referral for future PT for same condition. Physical Therapy Plan Frequency and Duration Frequency of Treatment 2x/Week Duration of treatment (weeks) 11 Plan of Care Start Date 12/21/22 Plan of Care End Date 03/08/23 Therapeutic Interventions Therapeutic Interventions Home Exercise Program,Joint Mobilizations,Manual Therapy, Neuromuscular Re-education, Patient/Caregiver Education, Self-Care/Home Management,Soft Tissue Mobilization,Taping, Therapeutic Activities, Therapeutic Exercises Modalities Cold Pack/Ice Massage,Electric Stimulation,Hot Packs, Ultrasound Discharge Physical Therapy Discharge Reasons Goals Met Discharge Comments Goals met and pt request finalize HEP and DC to HEP. Next Visit Focus/Plan Next Note Type Discharge Summary
== END 2023-03-08 14:13 | disposition home or self-care (01) ==
LOC: PHYS 09:00
PROVIDERS: Family Provider Family Medicine; PCP Family Medicine; Referring Provider Family Medicine; Visit Provider Family Medicine
DX: M25.511 Pain in right shoulder (principal); M25.641 Stiffness of right hand, not elsewhere classified; M25.642 Stiffness of left hand, not elsewhere classified
CPT/HCPCS: 97110; 97140

== ENCOUNTER → 2023-03-04 16:42 | Outpatient (CLI) | payer MEDICARE, OTHER, SELFPAY ==
[2019-08-03 20:00] VITALS: BMI 23.0
[2019-08-08 13:40] VITALS: PULSE 67; RESP 13; O2SAT 92
--- NOTE | 2023-03-04 16:44 | DI.US.S_ITS ---
PROCEDURE: US SOFT TISSUE HEAD AND NECK INDICATIONS: Swelling/mass below R mandible tender TECHNIQUE: Real-time scanning was performed of the neck region of interest, with image documentation. COMPARISON: None. FINDINGS: The swelling/masslike area in question corresponds to the patient's parotid gland. The gland itself appears enlarged and heterogeneous. It measures approximately 5.8 x 2.0 x 5.7 cm. There is no focal ductal dilatation and no visible stone. Color Doppler imaging demonstrates no significant increased vascularity. The overlying skin does not appear significantly thickened compared to the contralateral side. There are a few benign-appearing intraparotid lymph nodes. IMPRESSION: 1. Diffusely enlarged right parotid gland corresponds to the tender palpable abnormality. Differential diagnosis includes infectious or obstructive sialoadenitis. Low-grade malignancy is not entirely excluded, however no focal mass is identified. 2. Intraparotid lymph nodes appear normal and benign, similar to the contralateral side. Dictated by: Nikia Chen M.D. on 03/05/2023 at 9:13 Approved by: Nikia Chen M.D. on 03/05/2023 at 9:22
== END ==
PROVIDERS: Family Provider Family Medicine; PCP Family Medicine; Referring Provider Physician Assistant; Visit Provider Physician Assistant
DX: R22.0 Localized swelling, mass and lump, head (principal); K11.8 Other diseases of salivary glands; M06.9 Rheumatoid arthritis, unspecified
CPT/HCPCS: 76536

== ENCOUNTER → 2023-03-13 08:36 | Outpatient (CLI) | payer MEDICARE, OTHER, SELFPAY ==
[2019-08-03 20:00] VITALS: BMI 23.0
[2019-08-08 13:40] VITALS: PULSE 67; RESP 13; O2SAT 92
--- NOTE | 2023-03-13 09:00 | DI.MRI.S_ITS ---
PROCEDURE: MR FOOT RT WO CON INDICATIONS: Persistent swelling and pain of right foot; Hx of RA TECHNIQUE: Noncontrast sagittal T1 spin echo and T2 fast spin echo with fat saturation, long-axis T1 spin echo and T2 fast spin echo with fat saturation, short-axis T1 spin echo and T2 fast spin echo with fat saturation through the forefoot. COMPARISON: [facility], CR, XR FOOT RT MIN 3V, 03/03/2023, 14:51. FINDINGS: Image quality: Excellent. Bones and joints: There is extensive marrow edema involving throughout 3rd metatarsal shaft and head. Marrow edema is also noted involving distal shaft of 2nd metatarsal bone extending to head and neck. Subtle linear hypointense signal within 2nd and 3rd metatarsal heads are seen. Midfoot and forefoot joint osteoarthritis is seen. No other area of abnormal marrow signal. Soft tissues: Marked soft tissue swelling over dorsal aspect of midfoot at the level of metatarsal shafts are seen. Soft tissue swelling surrounding 2nd and 3rd metatarsal shaft is also noted. The visualized plantar foot muscles demonstrate normal signal and bulk. Visualized flexor and extensor tendons appear intact, without tenosynovitis. The distal insertions of the peroneus brevis and longus tendons appear intact. The principal Lisfranc ligament appears intact. No soft tissue ganglion cysts or bursal fluid collections. Sagittal images demonstrate no evidence for plantar plate tears. IMPRESSION: 1. Finding is suggestive of nondisplaced stress fractures involving 2nd and 3rd metatarsal head and neck region with extensive marrow edema and surrounding soft tissue swelling and edema. 2. Midfoot and forefoot joint osteoarthritis. No other fracture or dislocation. 3. Flexor and extensor tendons of midfoot and forefoot are grossly intact. Lisfranc ligament is intact. Dictated by: Ashutosh Alcantara M.D. on 03/16/2023 at 10:14 Approved by: Ashutosh Alcantara M.D. on 03/16/2023 at 10:17
== END ==
PROVIDERS: Family Provider Family Medicine; PCP Family Medicine; Referring Provider Physician Assistant; Visit Provider Physician Assistant
DX: M05.79 Rheumatoid arthritis with rheumatoid factor of multiple sites without organ or systems involvement (principal); M19.071 Primary osteoarthritis, right ankle and foot; M79.671 Pain in right foot; M79.89 Other specified soft tissue disorders
CPT/HCPCS: 73718

== ENCOUNTER 2023-06-11 17:58 | Emergency (ER) | payer MEDICARE, OTHER, SELFPAY ==
[2019-08-03 20:00] VITALS: BMI 23.0
[2019-08-08 13:40] VITALS: PULSE 67; RESP 13; O2SAT 92
[2023-06-11 18:04] VITALS: BP 193/91; PULSE 64; RESP 16; O2SAT 95; BMI 25.7
--- NOTE | 2023-06-11 18:12 | DI.RAD.S_ITS ---
PROCEDURE: XR KNEE RT 3V INDICATIONS: fall knee pain with deformity TECHNIQUE: 3 views of the knee were acquired. COMPARISON: None. FINDINGS: Bones: No fractures or dislocations. No suspicious bony lesions. Tricompartmental arthritic changes. Prominent patellar spur. Soft tissues: Mild joint effusion. No suspicious soft tissue calcifications. IMPRESSION: No visualized acute fracture or dislocation. However, if clinical concern and/or pain persist, short interval imaging followup in 7-10 days is recommended, as occult injury cannot be definitively excluded. Dictated by: Carolann Adam M.D. on 06/11/2023 at 18:48 Approved by: Carolann Adam M.D. on 06/11/2023 at 18:49
[2023-06-11] MEDS: OXYCODONE/ACETAMINOPHEN 5/325 TABLET 1 TAB PO (20:15)
[2023-06-11] MEDS: OXYCODONE/APAP 5/325 PREPACK 1 BOTTLE MISC (20:27)
--- NOTE | 2023-06-11 21:30 | ED_ITS ---
HPI - Extremity Injury (Lower) General Chief Complaint: Extremity Injury, Lower Stated Complaint: Knee pain, fall, hit head Time Seen by Provider: 06/11/23 18:12 History of Present Illness HPI Narrative: 78-year-old gentleman with a history of hyperlipidemia, hypothyroidism, right neck mass presumed lymphoma who was carrying a large painting flat form into his backyard stumbled hurt his right knee. Was able to get up with help drive home, walk-in to the house and then as he stood up his right knee gave out completely. He states that the kneecap seemed to dislocate but he is able to straighten the leg without difficulty. He comes in for further evaluation. He has not complaining of additional pain beyond the presumed lymphoma and the acute knee issue. He states that he has been taking large doses of Tylenol multiple times a day alternating with large doses of Excedrin multiple times a day. It does sound like he is clearly exceeding 4 g of Tylenol daily and not getting adequate pain control. He has been advised to discontinue his Excedrin in anticipation of upcoming surgery. He was told that ibuprofen was okay. He has has been reluctant to try narcotics due to concern for addiction. He describes no chest pain, orthopnea, dyspnea, palpitations, headaches, abdominal pain. Related Data Home Medications Medication Instructions Recorded Confirmed atorvastatin 20 mg tablet 20 mg PO DAILY 04/22/21 05/25/23 upadacitinib 15 mg tablet,extended 15 mg PO DAILY 04/22/21 05/25/23 release 24 hr (Rinvoq) Previous Rx's Medication Instructions Recorded levothyroxine 50 mcg tablet See Rx Instructions .Route 06/12/22 .COMPLEX #90 tabs nortriptyline 10 mg capsule See Rx Instructions PO DAILY #120 05/25/23 caps oxycodone-acetaminophen 5 mg-325 1 tab PO Q6H PRN pain #10 tabs 06/11/23 mg tablet Allergies Allergy/AdvReac Type Severity Reaction Status Date / Time No Known Drug Allergies Allergy Verified 05/25/23 14:04 Review of Systems Review of Systems Narrative: Pertinent positive and negative findings as per HPI Patient History Medical History (Updated 06/11/23 @ 21:58 by Elizabeth Earl MD) Jaw pain, non-TMJ Supraspinatus tendonitis Acute pain of right shoulder Foreign body of ear, left FHx: prostate cancer Low HDL (under 40) Stiffness of joints of both hands Joint pain in both hands Myalgia COPD (chronic obstructive pulmonary disease) Pneumonia Sepsis Acute respiratory failure with hypoxia CTS (carpal tunnel syndrome) Hyperlipidemia Hypothyroidism Chicken pox (1950) Measles (1952) Mumps (195) Hearing loss (2016) Cataract (2016) GI bleeding (2016) Colon polyps (1999) Skin cancer (2012) Surgical History History of tonsillectomy (1954) Anesthesia History of appendectomy (2011) Family History Father Liver cancer Mother Lung cancer Brother Cancer Brother No problems noted. Brother No problems noted. Daughter No problems noted. Social History (Updated 08/03/19 @ 16:12 by Anita Rojas DO) marital status: household members: spouse Smoking Status: Former smoker alcohol intake: former Smoking Status: Former smoker alcohol intake frequency: 0-2 drinks per day Substance Use Type: does not use Exam Initial Vital Signs Initial Vital Signs: Vital Signs Pulse Rate 64 06/11/23 18:04 Respiratory Rate 16 06/11/23 18:04 Blood Pressure 193/91 H 06/11/23 18:04 Pulse Oximetry 95 06/11/23 18:04 Oxygen Delivery Method Room Air 06/11/23 18:04 General: Alert appropriate in mild pain which is improved with knee immobilization ENT: Large mass at the angle of the jaw on the right side Respiratory: Able to speak in full sentences, no obvious respiratory distress Skin: No obvious rashes, warm and dry Neurologic: Grossly intact no obvious asymmetries or abnormalities Psych: appropriate insight and affect, cooperative Extremity: Right knee has a very mobile patella but he does not have any tenderness into the quadricep to suggest quadriceps tendon tear. There was no actual pain with patella mobility. He does have an effusion and with the effusion full ligamentous exam is challenging. He is able to fully extend the leg and flex to approximately 45?. He is neurovascularly intact distally Course Orders Ordered: ED Orders 06/11/23 18:12 XR knee RT 3V Stat Discontinued Medications Oxycodone/Acetaminophen (Oxycodone/Apap 5/325 Prepack) 1 bottle MISC DIRECTED ONE Stop: 06/11/23 20:08 Last Admin: 06/11/23 20:27 Dose: 1 bottle Documented By: Oxycodone/Acetaminophen (Oxycodone/Acetaminophen 5/325 Tablet) 1 tab PO NOW ONE Stop: 06/11/23 20:08 Last Admin: 06/11/23 20:15 Dose: 1 tab Documented By: Vital Signs Vital signs: Vital Signs - 8 hr 06/11/23 18:04 Pulse Rate 64 Respiratory Rate 16 Blood Pressure 193/91 H Pulse Oximetry 95 Oxygen Delivery Method Room Air MDM - Extremity Injury (Lower) MDM Narrative Medical decision making narrative: CC: Fall with knee injury and knee instability Complicating co-morbidities: 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 Scheduled for PET scan and surgery in the near future Data collected from: patient, Medical records reviewed: Primary care notes from May 25 are reviewed Differential considered: Fractures, ligamentous injuries, sprain Exam documented above, pertinent findings include: Knee with effusion, hyper mobile patella without particular tenderness. Mild tenderness with movement of the leg but no significant quadricep spasm Imaging studies independently reviewed: X-ray of the knee does not show acute bony injury Treatments: Patient took Tylenol prior to arrival and has been given a dose of Percocet in the emergency department with significant relief of pain both from the jaw lymphoma as well as the knee Discussion: 78-year-old gentleman with mechanical fall caring a loaded weight hyperextension of the right knee than right knee gives out. No bony injury but do suspect significant ligamentous injury. He is placed in a knee immobilizer instructed to use this for stability along with crutches. We had a long discussion regarding pain medication. I have recommended to ibuprofen 1 Tylenol for medium pain and to ibuprofen and 1 Percocet for severe pain. At this time he is willing to give that a try. He does have follow up for PET scan and surgical intervention with the lymphoma in the near future. Recommended that he talk to his primary care doctor on Wednesday I believe that an MRI of the right knee is going to be appropriate to figure out the actual ligamentous abnormality. He is safe for discharge Discharge Plan Departure Patient Disposition: Home Clinical Impression: Injury of knee, right Qualifiers: Encounter type: initial encounter Qualified Code(s): S89.91XA - Unspecified injury of right lower leg, initial encounter Instructions: DI for Knee Pain Activity Restrictions/Additional Instructions: Thank you for coming in today The x-ray of your knee does not show any bony abnormalities. With the description of your fall and then your knee giving out I am strongly suspicious that you have torn some of the ligaments. You will need an MRI to more further assess this but allowing the swelling and effusion to go down a bit we will make the MRI more effective. Using 400 mg of ibuprofen (2 fzkk-obt-njxdzur pills) and 1 Tylenol every 6 hours can be very helpful in controlling pain. For severe pain using 400 mg of ibuprofen and 1 Percocet, Percocet is Tylenol plus oxycodone. I think that you may find that this combination used before your pain becomes severe we will not only be more effective in controlling overall pain but you will find that you do not use as much pain medication overall. Using ice to your knee will help as well Please make sure that you are using your knee immobilizer when your walking or mobile so that your knee does not give out on you again. You may find that wal ker is more stable than the crutches. Please feel free to use both I would recommend calling your primary care physician on Wednesday. I believe that your knee is eventually going to need an MRI but allowing some of the swelling to recede so the MRI gives us the best anatomical findings we will be helpful. If you find that you are getting worse or develop any new symptoms, please feel free to return to the emergency department for further evaluation. Prescriptions: New oxycodone-acetaminophen 5-325 mg tablet 1 tab PO Q6H PRN (Reason: pain) Qty: 10 0RF No Action levothyroxine 50 mcg tablet See Rx Instructions .ROUTE .COMPLEX Qty: 90 3RF Dose Instruction: TAKE ONE TABLET BY MOUTH ONE TIME DAILY Rx Instructions: TAKE ONE TABLET BY MOUTH ONE TIME DAILY nortriptyline 10 mg capsule See Rx Instructions PO DAILY Qty: 120 12RF Rx Instructions: Start with 1 cap daily for 1 week, increase by 1 cap daily weekly up to maximum 100 mg weekly. orally daily; atorvastatin 20 mg tablet 20 mg PO DAILY Rinvoq 15 mg tablet extended release 24 hr 15 mg PO DAILY Referrals: Gurpreet Mckenzie DO [Primary Care Provider] - Stand Alone Forms: Patient Portal/API
== END 2023-06-11 22:06 | disposition home or self-care (01) ==
PROVIDERS: Emergency Provider Emergency Medicine; Family Provider Family Medicine; PCP Family Medicine
DX: S89.91XA Unspecified injury of right lower leg, initial encounter (principal); W01.0XXA Fall on same level from slipping, tripping and stumbling without subsequent striking against object, initial encounter
CPT/HCPCS: 73562; 99283; 99284

== ENCOUNTER → 2023-06-15 19:41 | Outpatient (CLI) | payer MEDICARE, OTHER, SELFPAY ==
[2019-08-03 20:00] VITALS: BMI 23.0
[2019-08-08 13:40] VITALS: PULSE 67; RESP 13; O2SAT 92
--- NOTE | 2023-06-15 20:00 | DI.MRI.S_ITS ---
PROCEDURE: MR KNEE RT WO CON INDICATIONS: Fall on 06/10; complete rupture of patellar tendon TECHNIQUE: Noncontrast sagittal PD fast spin echo and T2 fast spin echo with fat saturation, sagittal 3-D FLASH with fat saturation; coronal T1 spin echo and PD fast spin echo with fat saturation, and axial PD fast spin echo with fat saturation through the knee. COMPARISON: None. FINDINGS: Image quality: Excellent. Menisci: Oblique tear involving posterior horn of medial meniscus is seen extending to inferior articulating surface. Peripheral displacement of medial meniscus bowing medial collateral ligament is also seen. The lateral meniscus is intact. The meniscal root ligaments appear intact. Cruciate ligaments: The anterior and posterior cruciate ligaments appear intact. Medial structures: The medial collateral ligament appears intact. Visualized portions of the pes anserinus tendons appear normal. No abnormal bursal fluid. Lateral structures: The lateral collateral ligament, long and short heads of the biceps femoris tendon appear intact. The popliteus tendon appears normal. Iliotibial band appears normal. Anterior structures: Full-thickness rupture of distal quadriceps tendon at its insertion on superior patella is seen with up to 2.7 cm proximal retraction of torn tendon fibers and large amount of surrounding fluid and soft tissue edema. Thickened patellar tendon without patellar tendon rupture. There is moderate to high-grade partial-thickness tear involving medial patellofemoral ligament near its patellar insertion . Patellar alignment is normal. No femoral trochlear dysplasia or ventral trochlear prominence. No edema in the infrapatellar fat pad. Bones and cartilage: Byjf-wx-hfrdguaj tricompartmental osteoarthritis and chondromalacia is seen more notably in medial femoral tibial compartment . No fracture or dislocation. Joint space: There is moderate knee joint fluid. No Diaz's cyst. Normal appearing synovial plicae are incidentally noted. IMPRESSION: 1. Full-thickness rupture of distal quadriceps tendon at its superior patellar insertion with up to 2.7 cm proximal retraction of torn tendon fibers and large amount of surrounding fluid and soft tissue edema. Thickened patellar tendon suggestive of tendinosis. No patellar tendon rupture. 2. Moderate to high-grade partial-thickness tear involving medial patellofemoral ligament near its patellar insertion. No significant patellar subluxation. 3. Oblique tear involving posterior horn of medial meniscus extending to inferior articulating surface. The lateral meniscus is intact. 4. The cruciate ligaments are intact. 5. Ldyd-wm-fporcumj tricompartmental osteoarthritis and chondromalacia most notably in medial femoral tibial compartment. No acute fracture or dislocation. Moderate joint effusion, no gross loose bodies. Dictated by: Ashutosh Alcantara M.D. on 06/16/2023 at 9:08 Approved by: Ashutosh Alcantara M.D. on 06/16/2023 at 9:12
== END ==
LOC: MRI 19:45
PROVIDERS: Family Provider Family Medicine; PCP Family Medicine; Referring Provider Physician Assistant; Visit Provider Physician Assistant
DX: S83.241A Other tear of medial meniscus, current injury, right knee, initial encounter (principal); S76.111A Strain of right quadriceps muscle, fascia and tendon, initial encounter; M17.11 Unilateral primary osteoarthritis, right knee; M94.261 Chondromalacia, right knee; S86.819A Strain of other muscle(s) and tendon(s) at lower leg level, unspecified leg, initial encounter; S89.91XA Unspecified injury of right lower leg, initial encounter; X58.XXXA Exposure to other specified factors, initial encounter
CPT/HCPCS: 73721

== ENCOUNTER 2023-06-23 09:28 | Day surgery (SDC) | payer MEDICARE, OTHER, SELFPAY ==
[2019-08-03 20:00] VITALS: BMI 23.0
[2019-08-08 13:40] VITALS: PULSE 67; RESP 13; O2SAT 92
[2023-06-21 11:53] VITALS: BMI 27.8
[2023-06-23] VITALS (8 sets, daily range): BP systolic 147–162; BP diastolic 80–90; PULSE 65–77; RESP 13–18; TEMP 36.2–36.7; O2SAT 94–97; BMI 27.1
[2023-06-23] MEDS: ACETAMINOPHEN 325 MG TABLET 975 MG PO (10:17)
[2023-06-23] MEDS: LACTATED RINGERS 1,000 ML 42 ML IV (10:19)
[2023-06-23] MEDS: FAMOTIDINE 20 MG/2 ML VIAL IV (10:19)
--- NOTE | 2023-06-23 11:21 | PM.PREOP ---
Pre-operative Note Interval Note History & Physical reviewed/Exam performed by Physician: Yes Changes to H&P: No
--- NOTE | 2023-06-23 12:02 | SUR.PREOP ---
Pt had crackles 1/4 up on the right side and RN informed anesthesia of crackles. Pt denies any sob and any resp problems
[2023-06-23] MEDS: CEFAZOLIN 2 GM/100 ML PREMIX 100 ML IV (12:05)
--- NOTE | 2023-06-23 12:24 | SUR.OPER ---
Supine on padded OR bed, head on pillow, arms secured on padded arm boards at <90 degrees abduction, legs uncrossed, surgical leg elevated by sterile bump and non surgical leg taped down, safety belt at abdomen, tape over blanket over lower legs.
--- NOTE | 2023-06-23 12:33 | SUR.OPER ---
Pts dentures uppers and lowers in denture cup brought back to the OR as well as FLOYD, stored in a denture cup. Will follow pt to pacu.
[2023-06-23] MEDS: VANCOMYCIN 1,000 MG VIAL 1000 MG TOP (12:35)
[2023-06-23] MEDS: BUPIVACAINE 0.25% (PF) 30 ML, EPINEPHrine 0.15 MG INJ (12:35)
[2023-06-23] MEDS: OXYCODONE IR 5 MG TABLET PO (13:44)
--- NOTE | 2023-06-23 13:44 | PM.OP.1 ---
Operative Date/Time/Diagnoses Date of procedure: 06/23/23 Time of procedure: 12:00 Pre-op diagnosis: Rupture right quadriceps tendon s74.111a Post-op diagnosis: same Procedure & Clinicians Procedure: Repair right quadriceps tendon rupture CPT code 82937, right Same procedure as scheduled: Yes Indications: The patient is a 78-year-old male fell while doing work around the outside of his house sustained a right quadriceps tendon rupture. Post injury he was unable to extend his leg. He was evaluated in the emergency room x-rays and MRI demonstrate a quadriceps tendon rupture. He was referred for orthopedic care. He has a full-thickness quadriceps tendon rupture. He has an extensor mechanism rupture was indicated for surgical repair to restore his extensor mechanism and reduce the risk of persistent disability. He has no personal or family history of blood clots. He does have a past medical history of rheumatoid arthritis. He is also being worked up for an unknown mass of the throat and has an upcoming biopsy with another specialty. He has a history of use of steroids for his rheumatoid arthritis but is not currently on them. He is on RINVOQ for his rheumatoid arthritis. The patient is indicated for right quadriceps tendon rupture repair. The risks and benefits of the procedure have been discussed with the patient and given the opportunity to ask questions. The risks of surgery include but are not limited to infection, recurrent rupture, persistent weakness, persistence of pain, damage to nerves and blood vessels, posttraumatic arthritis, DVT, PE, cardiopulmonary complications and . The patient expressed a thorough understanding of the risks and benefits of surgery and has elected to proceed. Consent was signed Surgeon: Olinda Kessler Click Yes if Unassisted: Yes Anesthesia Type: General and Local Operative Notes Findings: Full-thickness quadriceps tendon rupture with extension into the medial and lateral patellar retinacula Closure Type: primary Specimen(s): none sent Estimated Blood Loss (mL): 40 Blood products transfused: none Tourniquet time (min): 41 Procedure in detail: Patient was seen in the preoperative area the site of surgery was marked which was the right knee, informed consent confirmed. The patient was brought back to the operating room by the surgical team. Patient was positioned on the surgical table all bony prominences well padded. Anesthesia was administered. Right lower extremity had a nonsterile tourniquet placed high on the thigh. The right lower extremity was prepped and draped in the standard sterile fashion. A formal time-out procedure was performed confirming the patient's side and site of surgery administration of appropriate preoperative antibiotic. All were in agreement. Attention was turned to the right knee Esmarch was used for exsanguination the tourniquet raised on the thigh to 250 mm of mercury. A midline incision was drawn over the right knee from proximally 1 handbreadth above the patella to 2 fingerbreadths below the distal patella. There was a obvious visible and palpable defect at the superior patella consistent with the full-thickness quadriceps rupture. Incision was taken down through the skin and subcutaneous tissues. Medial and lateral flaps were elevated. Thin layer retinacular at the superior rupture site was entered and this was extended to the medial and lateral patellar retinacula the were also disrupted. The hemarthrosis was evacuated. There was a full-thickness quadriceps rupture with several cm of retraction. Scar tissue was debrided. The superior patella was debrided with a rongeur to expose bone for repair site. An Allis clamp was used to grasp the quadriceps tendon and chilango distal to the patella. Adhesions were broken up to allow appropriate excursion. Next the joint was irrigated. Then a 2.5 drill was used to make 3 drill hole tunnels from superior to inferior in the patella for the repair. Once this was completed passing Vicryl suture was passed through the patellar tunnels with a [email or web address] suture Passer and clamped for later use. Once the 3 drill holes were established attention was returned to the quadriceps tendon and 2 x 5. Ethibond sutures were then placed in the distal quadriceps tendon in a Krackow fashion a locking stitch for a 4 strand repair. Once this was completed these were tensioned demonstrating excursion of the quadriceps to the superior patella. Passing sutures were then used to pass the Ethibond suture through the patellar tunnels to the distal patella. Lateral and medial sutures were taken through the lateral and medial tunnels in the 2 central suture strands were brought through the central tunnel. The knee was taken into extension and the sutures were then tied with the knee in full extension tightly at the distal patella. Motion was then tested and no gapping was noted. The sutures were then cut and oversewn with 0 Vicryl to reduce prominence. The medial and lateral patellar retinacular tears were also repaired with 0 Vicryl suture. And the quadriceps tendon was then oversewn proximally with 0 Vicryl suture as well. The wound was irrigated. Vancomycin powder 1 g was used in the wound there was the patient's immunodeficiency treatment for his rheumatoid arthritis. Subcutaneous tissues were closed with 2-0 Vicryl and then 4-0 Monocryl and the skin with Dermabond skin glue. 30 cc of 0.25% Marcaine with epinephrine were used for local anesthetic. Once the Dermabond skin glue was dry and Aquacel dressing was placed. An Mode wrap was then applied and the T scope hinged brace was applied and fixed locked in extension. It was set up so that it can be opened up to 0-30 degrees of flexion with seated but was fashioned locked in extension which will be used for weight-bearing. The patient was then awoken from anesthesia and then was taken to the recovery room in good condition there were no immediate complications of the procedure. All counts were correct. Complications: none Post-operative Condition: stable Disposition: PACU Plan for aftercare: Weightbear as tolerated in hinged knee brace locked in extension. May open up 0-30 for sitting in the car or toileting. Otherwise locked in full extension for all ambulation. Lovenox 40 mg subQ daily for DVT prophylaxis. Physical therapy has been arranged. We will continue along post quadriceps repair protocol. We will follow up in Orthopedic Clinic in 2 weeks for a wound check. Patient has a skin closure with Monocryl and Dermabond. He has an Aquacel dressing. May shower with the Aquacel dressing.
[2023-06-23] MEDS: ONDANSETRON 4 MG/2 ML INJ IV (13:45)
[2023-06-23] MEDS: KETOROLAC 30 MG/ML VIAL 15 MG IV (13:45)
== END 2023-06-23 14:42 | disposition home or self-care (01) ==
PROVIDERS: Family Provider Family Medicine; PCP Family Medicine; Referring Provider Orthopaedic Surgery Foot and Ankle Surgery; Visit Provider Orthopaedic Surgery Foot and Ankle Surgery
PROC: (CPT 27385; principal; 2023-06-23 10:45)
DX: S76.111A Strain of right quadriceps muscle, fascia and tendon, initial encounter (principal)
CPT/HCPCS: 27385; J0171; J0690; J1100; J1170; J1885; J2405; J2704; J3010; J3490

== ENCOUNTER → 2023-07-02 08:07 | Outpatient (CLI) | payer MEDICARE, OTHER, SELFPAY ==
[2019-08-03 20:00] VITALS: BMI 23.0
[2019-08-08 13:40] VITALS: PULSE 67; RESP 13; O2SAT 92
--- NOTE | 2023-07-02 | DI.MRI.S_ITS ---
PROCEDURE: MR ORBITS FACE NECK WO/W CON INDICATIONS: Other diseases of salivary glands TECHNIQUE: Sagittal/axial/coronal T1 spin echo and STIR. After the administration of contrast, axial/coronal/sagittal T1 fast spin echo with fat saturation through the neck. COMPARISON: [facility], CT, CT SOFT TISSUE NECK WITH CONTRAST, 04/28/2023, 15:09. [facility], [place], PET NECK TO MID THIGH, 06/16/2023, 8:55. FINDINGS: Image quality: This examination is limited by involuntary motion artifact. Lymph nodes: There is an irregular enhancing lymph node with an apparent necrotic center seen on the right at level 2A, measuring 24 x 21 mm. Vessels: Visualized vasculature appears normal, with normal flow voids and enhancement. Neck spaces: The right focal cord is mildly prominent and medialized compared to the left, as on series 7, image 40. Generalized fullness can be seen at the right tongue base, with asymmetry, with increased enhancement, as on series 15 images 29 through 33. Glands: There is mild asymmetry of the submandibular glands again seen, with a right similar gland slightly larger than left. No underlying masses or abnormal enhancement can be seen, however. The parotid glands appear normal. Thyroid gland demonstrates no significant abnormality. Miscellaneous: Visualized brain and orbits appear normal. Lung apices appear clear. Superficial soft tissues appear normal. Visualized sinuses and mastoids appear clear. Bones: Marrow has normal overall signal. IMPRESSION: Mild asymmetry of the submandibular glands can again be seen, with the right submandibular gland slightly larger than the left. No abnormal enhancement can be seen. No salivary gland masses are seen. There is an abnormal lymph node seen on the right at level 2A, with increased enhancement and an apparent necrotic center. This is decreased in size compared to the recent PET-CT. Abnormal prominence and medialization seen of the right vocal cord. Abnormal prominence with hyperenhancement seen of the right tongue base. Dictated by: Ajay Lakhani M.D. on 07/02/2023 at 9:57 Approved by: Ajay Lakhani M.D. on 07/02/2023 at 10:03
== END ==
PROVIDERS: Family Provider Family Medicine; PCP Family Medicine; Referring Provider Otolaryngology; Visit Provider Otolaryngology
DX: K11.8 Other diseases of salivary glands (principal); R59.0 Localized enlarged lymph nodes
CPT/HCPCS: 70543; A9579

== ENCOUNTER 2023-07-22 12:41 | Emergency (ER) | payer MEDICARE, OTHER, SELFPAY ==
[2019-08-03 20:00] VITALS: BMI 23.0
[2019-08-08 13:40] VITALS: PULSE 67; RESP 13; O2SAT 92
[2023-07-22] VITALS (27 sets, daily range): BP systolic 110–157; BP diastolic 57–79; PULSE 50–90; RESP 8–22; O2SAT 88–100; BMI 26.4
[2023-07-22 13:01] LABS: Add Manual Diff / Slide Review NO; Basophils Absolute Auto 100 /uL (0-100); Basophils Percent Auto 0.8 % (0-2); Eosinophils Absolute Auto 100 /uL (0-450); Eosinophils Percent Auto 1.5 % (2-4); Hemoglobin 13.8 g/dL (13.5-17.5); Lymphocytes Absolute Auto 1100 /uL (1100-4500); Lymphocytes Percent Auto 16.7 % (25-40); Mean Corpuscular HGB Conc 34.5 % (30-36); Mean Corpuscular Hemoglobin 33.3 PG (26-34); Mean Corpuscular Volume 96.6 fL (80-100); Monocytes Absolute Auto 600 /uL (0-900); Monocytes Percent Auto 8.8 % (3-14); Neutrophils Absolute Auto 4900 /uL (1500-7000); Neutrophils Percent Auto 72.2 % (50-75); Platelet Count 223 X10^3/uL (150-400); Red Blood Cell Count 4.14 X10^6/uL (4.5-5.9); Red Cell Distribution Width 14.3 % (11.6-14.8); White Blood Cell Count 6.8 X10^3/uL (4.5-11.0)
--- NOTE | 2023-07-22 13:05 | ED.GENADULT ---
HPI - General Adult General Chief complaint: Syncope Stated complaint: Near Syncope Time Seen by Provider: 07/22/23 12:55 Source: patient and EMS Mode of arrival: EMS History of Present Illness HPI narrative: Patient is a 78-year-old male. Is here for evaluation of an episode where he the almost passed out or did pass out. He said his normal state of health. He does have history of lymphoma. Has a large right-sided neck mass. He has been having a headache for the past several weeks. He states that today his headache was worse than normal. 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 No shortness of breath. No chest pain. No palpitations. He states he had to go over and sit down. He did throw up. He then most likely passed out for short period of time. No injuries. Here in the ER he states he has having a headache and shaking. Related Data Home Medications Medication Instructions Recorded Confirmed atorvastatin 20 mg tablet 20 mg PO DAILY 04/22/21 06/23/23 upadacitinib 15 mg tablet,extended 15 mg PO DAILY 04/22/21 06/23/23 release 24 hr (Rinvoq) Previous Rx's Medication Instructions Recorded oxycodone-acetaminophen 5 mg-325 1 tab PO Q6H PRN pain #30 tabs 06/17/23 mg tablet enoxaparin 40 mg/0.4 mL 40 mg (0.4 mL) SUBCUT DAILY #4 mL 06/23/23 subcutaneous syringe (Lovenox) oxycodone 5 mg tablet 5 mg PO Q4H PRN pain #40 tabs 06/23/23 levothyroxine 50 mcg tablet See Rx Instructions .Route 07/01/23 .COMPLEX #90 tabs gabapentin 300 mg capsule 300 mg PO BID #60 caps 07/22/23 Allergies Allergy/AdvReac Type Severity Reaction Status Date / Time No Known Drug Allergies Allergy Verified 06/23/23 10:14 Review of Systems Review of Systems ROS Unobtainable: All systems reviewed & are unremarkable except as noted in HPI and below Patient History Medical History Rupture quadriceps tendon (05/2023) Jaw pain, non-TMJ Supraspinatus tendonitis Acute pain of right shoulder Foreign body of ear, left FHx: prostate cancer Low HDL (under 40) Stiffness of joints of both hands Joint pain in both hands Myalgia COPD (chronic obstructive pulmonary disease) Pneumonia Sepsis Acute respiratory failure with hypoxia CTS (carpal tunnel syndrome) Hyperlipidemia Hypothyroidism Chicken pox (1950) Measles (195) Mumps (195) Hearing loss (2016) Cataract (2016) GI bleeding (2016) Colon polyps (1999) Skin cancer (2012) Surgical History History of tonsillectomy (1954) Anesthesia History of appendectomy (2011) Family History Father Liver cancer Mother Lung cancer Brother Cancer Brother No problems noted. Brother No problems noted. Daughter No problems noted. Social History marital status: household members: spouse Smoking Status: Former smoker alcohol intake: former Smoking Status: Former smoker alcohol intake frequency: 0-2 drinks per day Substance Use Type: does not use Exam Initial Vital Signs Initial Vital Signs: Vital Signs Pulse Rate 50 L 07/22/23 12:56 Respiratory Rate 18 07/22/23 12:56 Blood Pressure 133/69 07/22/23 12:56 Pulse Oximetry 100 07/22/23 12:56 Oxygen Delivery Method Room Air 07/22/23 12:56 Const General: cooperative, comfortable and No ill appearing HENMT Head: normal to inspection and normocephalic Resp Effort & Inspection: normal respiratory effort Auscultation: clear to auscultation bilaterally Cardio Rate: regular rate Rhythm: regular rhythm GI Inspection: normal to inspection and non-distended Skin General: no rashes or lesions noted Neuro General: patient alert, patient awake, patient oriented x3 and moves all extremities Cognition: normal cognition Speech: speech normal Extrem General: capillary refill normal Course Orders Ordered: ED Orders 07/22/23 12:47 Complete Blood Count AUTO DIFF Stat Comprehensive Metabolic Panel Stat Lipase Stat 07/22/23 12:55 EKG-12 Lead Stat 07/22/23 13:05 CT head/brain wo con Stat Discontinued Medications Gabapentin (Gabapentin 300 Mg Capsule) 300 mg PO NOW ONE Stop: 07/22/23 15:53 Last Admin: 07/22/23 16:02 Dose: 300 mg Documented By: HERBIE Hydromorphone HCl (Hydromorphone 1 Mg Inj) 1 mg IV NOW ONE Stop: 07/22/23 13:16 Last Admin: 07/22/23 13:36 Dose: 1 mg Documented By: KORINA Sodium Chloride (Normal Saline 0.9%) 1,000 mls @ 1,000 mls/hr IV BOLUS ONE Stop: 07/22/23 13:54 Last Admin: 07/22/23 13:11 Dose: Not Given Documented By: KORINA Vital Signs Vital signs: Vital Signs - 8 hr 07/22/23 12:56 07/22/23 13:40 07/22/23 13:40 Pulse Rate 50 L 67 Respiratory Rate 18 18 Blood Pressure 133/69 122/61 Pulse Oximetry 100 98 Oxygen Delivery Method Room Air 07/22/23 13:45 07/22/23 13:45 07/22/23 13:50 Pulse Rate 67 Respiratory Rate 11 L Blood Pressure 113/59 L 110/58 L Pulse Oximetry 98 Oxygen Delivery Method 07/22/23 13:50 07/22/23 13:55 07/22/23 13:55 Pulse Rate 71 72 Respiratory Rate 11 L 9 L Blood Pressure 113/60 Pulse Oximetry 91 88 L Oxygen Delivery Method 07/22/23 14:00 07/22/23 14:00 07/22/23 14:05 Pulse Rate 72 Respiratory Rate 13 Blood Pressure 120/66 111/63 Pulse Oximetry 96 Oxygen Delivery Method 07/22/23 14:05 07/22/23 14:10 07/22/23 14:10 Pulse Rate 60 64 Respiratory Rate 9 L 8 L Blood Pressure 126/61 Pulse Oximetry 98 96 Oxygen Delivery Method 07/22/23 14:15 07/22/23 14:15 07/22/23 14:20 Pulse Rate 57 L 56 L Respiratory Rate 8 L 10 L Blood Pressure 123/59 L Pulse Oximetry 99 98 Oxygen Delivery Method 07/22/23 14:20 07/22/23 14:25 07/22/23 14:25 Pulse Rate 55 L Respiratory Rate 8 L Blood Pressure 121/58 L 111/57 L Pulse Oximetry 95 Oxygen Delivery Method 07/22/23 14:30 07/22/23 14:30 07/22/23 14:35 Pulse Rate 72 Respiratory Rate 9 L Blood Pressure 121/65 123/70 Pulse Oximetry 97 Oxygen Delivery Method 07/22/23 14:35 07/22/23 14:40 07/22/23 14:40 Pulse Rate 70 59 L Respiratory Rate 13 13 Blood Pressure 126/74 Pulse Oximetry 98 99 Oxygen Delivery Method 07/22/23 14:45 07/22/23 14:45 07/22/23 14:50 Pulse Rate 71 60 Respiratory Rate 19 13 Blood Pressure 131/79 Pulse Oximetry 99 98 Oxygen Delivery Method 07/22/23 14:50 07/22/23 14:56 07/22/23 14:56 Pulse Rate 69 Respiratory Rate 13 Blood Pressure 121/71 157/77 H Pulse Oximetry 97 Oxygen Delivery Method 07/22/23 15:00 07/22/23 15:00 07/22/23 15:05 Pulse Rate 58 L Respiratory Rate 9 L Blood Pressure 133/72 140/73 Pulse Oximetry 98 Oxygen Delivery Method 07/22/23 15:05 07/22/23 15:10 07/22/23 15:10 Pulse Rate 70 72 Respiratory Rate 15 11 L Blood Pressure 130/76 Pulse Oximetry 98 95 Oxygen Delivery Method 07/22/23 15:15 07/22/23 15:15 07/22/23 15:20 Pulse Rate 76 69 Respiratory Rate 16 11 L Blood Pressure 122/66 Pulse Oximetry 96 95 Oxygen Delivery Method 07/22/23 15:20 07/22/23 15:25 07/22/23 15:25 Pulse Rate 81 Respiratory Rate 17 Blood Pressure 125/73 122/59 L Pulse Oximetry 96 Oxygen Delivery Method 07/22/23 15:30 07/22/23 15:33 07/22/23 15:33 Pulse Rate 84 73 Respiratory Rate 22 Blood Pressure 119/69 Pulse Oximetry 96 Oxygen Delivery Method 07/22/23 15:36 07/22/23 15:36 07/22/23 16:00 Pulse Rate 90 87 Respiratory Rate 15 Blood Pressure 112/68 Pulse Oximetry 93 96 Oxygen Delivery Method Medical Decision Making Lab Data Lab results reviewed: Yes I reviewed the patient's lab results. 07/22/23 12:47 07/22/23 12:47 Labs: Lab Results 07/22/23 Range/Units 12:47 WBC 6.8 (4.5-11.0) X10^3/uL RBC 4.14 L (4.5-5.9) X10^6/uL Hgb 13.8 (13.5-17.5) g/dL Hct 40.0 L (41-53) % MCV 96.6 (80-100) fL MCH 33.3 (26-34) PG MCHC 34.5 (30-36) % RDW 14.3 (11.6-14.8) % Plt Count 223 (150-400) X10^3/uL Neut % (Auto) 72.2 (50-75) % Lymph % (Auto) 16.7 L (25-40) % [place] % (Auto) 8.8 (3-14) % Eos % (Auto) 1.5 L (2-4) % Baso % (Auto) 0.8 (0-2) % Neut # (Auto) 4900 (6619-4803) /uL Lymph # (Auto) 1100 (8273-8756) /uL [place] # (Auto) 600 (0-900) /uL Eos # (Auto) 100 (0-450) /uL Baso # (Auto) 100 (0-100) /uL Sodium 141 (137-145) mmol/L Potassium 4.2 (3.4-5.1) mmol/L Chloride 108 H (98-107) mmol/L Carbon Dioxide 23 (22-32) mmol/L BUN 17 (9-20) mg/dL Creatinine 1.18 (0.66-1.25) mg/dL Estimated GFR > 60 (>60) mL/min BUN/Creatinine Ratio 14.4 (6-22) Glucose 136 H (80-110) mg/dL Calcium 10.0 (8.4-10.2) mg/dL Total Bilirubin 0.7 (0.2-1.3) mg/dL AST 26 (17-59) IU/L ALT 28 (<50) IU/L Alkaline Phosphatase 85 (38-126) U/L Total Protein 7.5 (6.3-8.2) g/dL Albumin 4.5 (3.5-5.0) g/dL Globulin 3.0 (1.7-4.1) g/dL Albumin/Globulin Ratio 1.5 (1.0-2.8) Lipase 182 (23-300) U/L Imaging Data CT scan - head: Radiologist's Impression: PROCEDURE: CT HEAD/BRAIN WO CON INDICATIONS: History of lymphoma, severe headache TECHNIQUE: Noncontrast 4.5 mm thick angled axial sections acquired from the foramen magnum to the vertex, with coronal and sagittal reformats. For radiation dose reduction, the following was used: automated exposure control, adjustment of mA and/or kV according to patient size. COMPARISON: [facility], MR, MR ORBITS FACE NECK WO/W CON, 07/02/2023, 8:36. FINDINGS: Image quality: Diagnostic. CSF spaces: Basal cisterns are patent. No extra-axial fluid collections. The ventricles are symmetric in size and shape. Brain: No intracranial bleeds or masses. There is cerebral volume loss for age, with resultant ventricular and sulcal prominence. There are periventricular and deep white matter chronic small vessel ischemic changes. There is intracranial internal carotid artery atherosclerosis. Skull and face: Calvarium and visualized facial bones appear intact, without suspicious lesions. Sinuses: Visualized sinuses and mastoids are clear. IMPRESSION: No acute intracranial pathology. ECG Data Attestation: I personally reviewed and interpreted this ECG as follows: Interpretation: Sinus rhythm Ventricular rate of 49 Right bundle-branch block Normal QRS Normal QTC Nonspecific ST T wave changes MDM Narrative Medical decision making narrative: After observation and fluids here in the emergency department patient states that his headache is actually now much better in his back to his baseline over the past several days/weeks. His head CT is unremarkable. He was able to ambulate around the emergency department. No signs of an arrhythmia. He does have some tenderness along his right TMJ/facial nerve which is right near the mass on the right side of his neck. He was given a prescription for opioid pain medication from his oncologist but he states this really has not helped all that much. I have low suspicion that this is an acute central neurologic process. Low suspicion for seizure. We will start him on gabapentin. He understands that this may need to be adjusted based on his response to it. Will discharge patient home with a prescription for gabapentin. He was given return precautions. He expressed understanding and agreement. Discharge Plan Departure Patient Disposition: Home Clinical Impression: Headache, Lymphoma Instructions: DI for Headache Activity Restrictions/Additional Instructions: Continue to take all of your medications. I do recommend that you contact your oncologist to let them know about your visit today. Start taking the gabapentin as directed. Like we discussed this may need to be adjusted as time goes on. Return to the emergency department for new or worsening symptoms Prescriptions: New gabapentin 300 mg capsule 300 mg PO BID Qty: 60 0RF No Action oxycodone-acetaminophen 5-325 mg tablet 1 tab PO Q6H PRN (Reason: pain) Qty: 30 0RF levothyroxine 50 mcg tablet See Rx Instructions .ROUTE .COMPLEX Qty: 90 3RF Dose Instruction: TAKE ONE TABLET BY MOUTH ONE TIME DAILY Rx Instructions: TAKE ONE TABLET BY MOUTH ONE TIME DAILY atorvastatin 20 mg tablet 20 mg PO DAILY Rinvoq 15 mg tablet extended release 24 hr 15 mg PO DAILY enoxaparin [Lovenox] 40 mg/0.4 mL syringe 40 mg SUBCUT DAILY Qty: 4 0RF Rx Instructions: Start morning 06/24/2023 oxycodone 5 mg tablet 5 mg PO Q4H PRN (Reason: pain) Qty: 40 0RF Rx Instructions: postop exempt Referrals: Gurpreet Mckenzie DO [Primary Care Provider] - Stand Alone Forms: Patient Portal/API
[2023-07-22 13:08] LABS: Alanine Aminotransferase 28 IU/L (<50); Albumin 4.5 g/dL (3.5-5.0); Albumin Globulin Ratio 1.5 (1.0-2.8); Alkaline Phosphatase 85 U/L (38-126); Aspartate Aminotransferase 26 IU/L (17-59); BUN Creatinine Ratio 14.4 (6-22); Bilirubin Total 0.7 mg/dL (0.2-1.3); Blood Urea Nitrogen 17 mg/dL (9-20); Carbon Dioxide 23 mmol/L (22-32); Chloride 108 mmol/L (98-107); Estimated Glomerular Filt Rate > 60 mL/min (>60); Glucose 136 mg/dL (80-110); HEMOLYSIS < 15 (0-50); Lipase 182 U/L (23-300); Potassium 4.2 mmol/L (3.4-5.1); Sodium 141 mmol/L (137-145); Total Protein 7.5 g/dL (6.3-8.2)
[2023-07-22] MEDS: HYDROMORPHONE 1 MG INJ IV (13:36)
[2023-07-22] MEDS: GABAPENTIN 300 MG CAPSULE PO (16:02)
--- NOTE | 2023-07-22 16:22 | PC.NURSE ---
Syncopal episode witnessed by bystanders. Pt states he was told he was out for 5 min. Pt states he threw up after coming to it. Pt diaphoretic upon arrival to ED.
== END 2023-07-22 16:29 | disposition home or self-care (01) ==
PROVIDERS: Emergency Provider Emergency Medicine; Family Provider Family Medicine; PCP Family Medicine
DX: R51.9 Headache, unspecified (principal); R55 Syncope and collapse; C85.91 Non-Hodgkin lymphoma, unspecified, lymph nodes of head, face, and neck
CPT/HCPCS: 70450; 80053; 83690; 85025; 93005; 96374; 99284; J1170

== ENCOUNTER → 2023-07-27 13:13 | Outpatient (CLI) | payer MEDICARE, OTHER, SELFPAY ==
[2019-08-03 20:00] VITALS: BMI 23.0
[2019-08-08 13:40] VITALS: PULSE 67; RESP 13; O2SAT 92
[2023-07-27 14:45] LABS: Add Manual Diff / Slide Review NO; Basophils Absolute Auto 0 /uL (0-100); Basophils Percent Auto 0.6 % (0-2); Eosinophils Absolute Auto 200 /uL (0-450); Hematocrit 41.7 % (41-53); Lymphocytes Absolute Auto 800 /uL (1100-4500); Lymphocytes Percent Auto 17.2 % (25-40); Mean Corpuscular HGB Conc 33.5 % (30-36); Mean Corpuscular Hemoglobin 32.5 PG (26-34); Mean Corpuscular Volume 96.9 fL (80-100); Monocytes Absolute Auto 500 /uL (0-900); Monocytes Percent Auto 11.9 % (3-14); Neutrophils Absolute Auto 2900 /uL (1500-7000); Neutrophils Percent Auto 65.3 % (50-75); Platelet Count 203 X10^3/uL (150-400); Red Blood Cell Count 4.31 X10^6/uL (4.5-5.9); Red Cell Distribution Width 14.3 % (11.6-14.8); White Blood Cell Count 4.4 X10^3/uL (4.5-11.0)
[2023-07-27 15:22] LABS: Alanine Aminotransferase 37 IU/L (<50); Albumin 4.4 g/dL (3.5-5.0); Albumin Globulin Ratio 1.4 (1.0-2.8); Alkaline Phosphatase 78 U/L (38-126); Aspartate Aminotransferase 31 IU/L (17-59); BUN Creatinine Ratio 22.7 (6-22); Bilirubin Total 0.5 mg/dL (0.2-1.3); Blood Urea Nitrogen 17 mg/dL (9-20); Calcium 9.5 mg/dL (8.4-10.2); Carbon Dioxide 29 mmol/L (22-32); Chloride 107 mmol/L (98-107); Estimated Glomerular Filt Rate > 60 mL/min (>60); Globulin 3.2 g/dL (1.7-4.1); Glucose 95 mg/dL (80-110); HEMOLYSIS < 15 (0-50); Potassium 4.4 mmol/L (3.4-5.1); Sodium 141 mmol/L (137-145); Total Protein 7.6 g/dL (6.3-8.2)
== END ==
PROVIDERS: Family Provider Family Medicine; PCP Family Medicine; Referring Provider Internal Medicine Hematology & Oncology; Visit Provider Internal Medicine Hematology & Oncology
DX: C76.0 Malignant neoplasm of head, face and neck (principal)
CPT/HCPCS: 36415; 80053; 85025

== ENCOUNTER → 2023-08-05 13:53 | Outpatient (CLI) | payer MEDICARE, OTHER, SELFPAY ==
[2019-08-03 20:00] VITALS: BMI 23.0
[2019-08-08 13:40] VITALS: PULSE 67; RESP 13; O2SAT 92
[2023-08-05 14:39] LABS: Add Manual Diff / Slide Review NO; Basophils Absolute Auto 0 /uL (0-100); Basophils Percent Auto 0.4 % (0-2); Eosinophils Absolute Auto 300 /uL (0-450); Eosinophils Percent Auto 5.4 % (2-4); Hematocrit 41.2 % (41-53); Lymphocytes Absolute Auto 900 /uL (1100-4500); Lymphocytes Percent Auto 15.4 % (25-40); Mean Corpuscular HGB Conc 33.9 % (30-36); Mean Corpuscular Hemoglobin 32.7 PG (26-34); Mean Corpuscular Volume 96.3 fL (80-100); Monocytes Absolute Auto 600 /uL (0-900); Monocytes Percent Auto 11.5 % (3-14); Neutrophils Absolute Auto 3700 /uL (1500-7000); Neutrophils Percent Auto 67.3 % (50-75); Platelet Count 221 X10^3/uL (150-400); Red Blood Cell Count 4.28 X10^6/uL (4.5-5.9); Red Cell Distribution Width 13.8 % (11.6-14.8); White Blood Cell Count 5.6 X10^3/uL (4.5-11.0)
[2023-08-05 14:52] LABS: Alanine Aminotransferase 33 IU/L (<50); Albumin 4.4 g/dL (3.5-5.0); Albumin Globulin Ratio 1.3 (1.0-2.8); Alkaline Phosphatase 96 U/L (38-126); Aspartate Aminotransferase 30 IU/L (17-59); BUN Creatinine Ratio 32.9 (6-22); Bilirubin Total 0.6 mg/dL (0.2-1.3); Blood Urea Nitrogen 25 mg/dL (9-20); Calcium 9.6 mg/dL (8.4-10.2); Carbon Dioxide 27 mmol/L (22-32); Chloride 105 mmol/L (98-107); Estimated Glomerular Filt Rate > 60 mL/min (>60); Globulin 3.4 g/dL (1.7-4.1); Glucose 120 mg/dL (80-110); HEMOLYSIS < 15 (0-50); Potassium 4.4 mmol/L (3.4-5.1); Sodium 140 mmol/L (137-145); Total Protein 7.8 g/dL (6.3-8.2)
== END ==
LOC: LAB 13:55
PROVIDERS: Family Provider Family Medicine; PCP Family Medicine; Referring Provider Internal Medicine Hematology & Oncology; Visit Provider Internal Medicine Hematology & Oncology
DX: C44.42 Squamous cell carcinoma of skin of scalp and neck (principal); I10 Essential (primary) hypertension
CPT/HCPCS: 36415; 80053; 83735; 85025

== ENCOUNTER 2023-09-03 11:11 | Emergency (ER) | payer MEDICARE, OTHER, SELFPAY ==
[2019-08-03 20:00] VITALS: BMI 23.0
[2019-08-08 13:40] VITALS: PULSE 67; RESP 13; O2SAT 92
[2023-09-03] VITALS (41 sets, daily range): BP systolic 88–161; BP diastolic 53–93; PULSE 60–87; RESP 12–23; TEMP 36.4–37.2; O2SAT 92–99
--- NOTE | 2023-09-03 11:24 | ED.GENADULT ---
HPI - General Adult General Chief complaint: Neuro Symptoms/Deficit Stated complaint: Morphine & Lorazipam OD, 3 Narcans Time Seen by Provider: 09/03/23 11:24 Mode of arrival: Wheelchair History of Present Illness HPI narrative: 78-year-old male with a history of lymphoma, ongoing proton therapy arranged through [facility], recent hospitalization for 3 days [facility] for low blood pressure, per this was felt to be due to dehydration, noted to have low magnesium and low potassium, IV fluids and repletion of electrolytes were done, had scheduled proton therapy session today. This time for the 1st time he was premedicated for proton therapy with instructed dose 10 mg oral morphine and 1 mg oral Ativan which he took prior to the procedure, and tolerated the procedure well, he was discharged seemed to be doing okay. [place] when she noted he became less responsive, she pulled off to the side and administered intranasal Narcan, he had transient response, she called 911, EMS gave a 2nd Narcan dose, seemed improved, not transported, resumed driving north with patient. EMS had gave her an extra dose of [place] for the rest of her journey north, when later again he became less responsive again, she administered another (third) dose of Narcan, and completed her drive here. He seems more responsive now. She believes he might be dehydrated again, has not been eating or drinking much with his ongoing treatments. He denies discomfort in his chest, head, abdomen. He denies feeling feverish. He had some nausea Related Data Home Medications Medication Instructions Recorded Confirmed atorvastatin 20 mg tablet 20 mg PO DAILY 04/22/21 07/27/23 Previous Rx's Medication Instructions Recorded levothyroxine 50 mcg tablet See Rx Instructions .Route 07/01/23 .COMPLEX #90 tabs Allergies Allergy/AdvReac Type Severity Reaction Status Date / Time No Known Drug Allergies Allergy Verified 09/03/23 11:18 Review of Systems Review of Systems Narrative: As per HPI Patient History Medical History Rupture quadriceps tendon (05/2023) Jaw pain, non-TMJ Supraspinatus tendonitis Acute pain of right shoulder Foreign body of ear, left FHx: prostate cancer Low HDL (under 40) Stiffness of joints of both hands Joint pain in both hands Myalgia COPD (chronic obstructive pulmonary disease) Pneumonia Sepsis Acute respiratory failure with hypoxia CTS (carpal tunnel syndrome) Hyperlipidemia Hypothyroidism Chicken pox (1950) Measles (195) Mumps (195) Hearing loss (2016) Cataract (2016) GI bleeding (2016) Colon polyps (2000) Skin cancer (2013) Surgical History History of tonsillectomy (1954) Anesthesia History of appendectomy (2011) Family History Father Liver cancer Mother Lung cancer Brother Cancer Brother No problems noted. Brother No problems noted. Daughter No problems noted. Social History marital status: household members: spouse Smoking Status: Former smoker alcohol intake: former Smoking Status: Former smoker alcohol intake frequency: 0-2 drinks per day Substance Use Type: does not use Exam Narrative Exam Narrative: GENERAL:Well-developed patient, in mild distress. HEAD: Atraumatic. Normocephalic. EYES: Pupils equal round and reactive. Extraocular motions intact. No scleral icterus. No injection or drainage. ENT: Nose without bleeding, purulent drainage. Throat without erythema, tonsillar hypertrophy or exudate. Airway patent. NECK: Trachea midline. Non tender CARDIOVASCULAR: Regular rate and rhythm without murmurs, gallops, or rubs. RESPIRATORY: Clear to auscultation. Breath sounds equal bilaterally. No wheezes, rales, or rhonchi. GASTROINTESTINAL: Abdomen soft, non-tender, nondistended. EXTREMITIES: No edema or joint tenderness. BACK: Nontender without deformity or crepitance. No flank tenderness. NEURO: Sleepy appearing but easily aroused, and conversant and appropriate with exam. Nonfocal neuro exam. SKIN: No rash or erythema of visible areas Initial Vital Signs Initial Vital Signs: Vital Signs Temperature 97.6 F 09/03/23 11:12 Pulse Rate 62 09/03/23 11:12 Respiratory Rate 12 09/03/23 11:12 Blood Pressure 132/93 H 09/03/23 11:12 Pulse Oximetry 97 09/03/23 11:12 Oxygen Delivery Method Room Air 09/03/23 11:12 Course Orders Ordered: Discontinued Medications Sodium Chloride (Normal Saline 0.9%) 1,000 mls @ 1,000 mls/hr IV BOLUS ONE Stop: 09/03/23 12:43 Last Infusion: 09/03/23 14:02 Dose: Infused Documented By: Infusion: 09/03/23 12:40 Dose: 0 mls/hr Documented By: Admin: 09/03/23 11:46 Dose: 1,000 mls/hr Documented By: GABBY Sodium Chloride (Normal Saline 0.9%) 1,000 mls @ 1,000 mls/hr IV BOLUS ONE Stop: 09/03/23 13:55 Last Infusion: 09/03/23 15:03 Dose: Infused Documented By: Admin: 09/03/23 13:50 Dose: 1,000 mls/hr Documented By: GABBY Sodium Chloride (Normal Saline 0.9%) 1,000 mls @ 1,000 mls/hr IV BOLUS ONE Stop: 09/03/23 18:08 Last Infusion: 09/03/23 18:09 Dose: Infused Documented By: Admin: 09/03/23 17:29 Dose: 1,000 mls/hr Documented By: XIN Ondansetron HCl (Ondansetron 4 Mg/2 Ml Inj) 4 mg IV NOW PRN PRN Reason: Nausea And Vomiting Last Admin: 09/03/23 11:47 Dose: 4 mg Documented By: GABBY Ondansetron HCl (Ondansetron 4 Mg Odt) 4 mg SL NOW PRN PRN Reason: Nausea And Vomiting Vital Signs Vital signs: Vital Signs - 8 hr 09/03/23 11:12 09/03/23 11:16 09/03/23 11:17 Temperature 97.6 F Pulse Rate 62 60 63 Respiratory Rate 12 19 20 Blood Pressure 132/93 H Pulse Oximetry 97 92 96 Oxygen Delivery Method Room Air 09/03/23 11:17 09/03/23 11:30 09/03/23 11:30 Temperature Pulse Rate 61 Respiratory Rate 20 Blood Pressure 132/93 H 99/59 L Pulse Oximetry 96 Oxygen Delivery Method 09/03/23 11:40 09/03/23 11:40 09/03/23 11:50 Temperature Pulse Rate 60 60 Respiratory Rate 18 18 Blood Pressure 88/53 L Pulse Oximetry 95 99 Oxygen Delivery Method 09/03/23 11:50 09/03/23 12:00 09/03/23 12:00 Temperature Pulse Rate 63 Respiratory Rate 16 Blood Pressure 106/59 L 127/60 Pulse Oximetry 96 Oxygen Delivery Method Room Air 09/03/23 12:13 09/03/23 12:13 09/03/23 12:20 Temperature Pulse Rate 79 Respiratory Rate 18 Blood Pressure 138/66 148/78 H Pulse Oximetry 97 Oxygen Delivery Method Room Air 09/03/23 12:20 09/03/23 12:30 09/03/23 12:30 Temperature Pulse Rate 72 76 Respiratory Rate 15 15 Blood Pressure 147/69 H Pulse Oximetry 97 97 Oxygen Delivery Method 09/03/23 12:40 09/03/23 12:40 09/03/23 12:50 Temperature Pulse Rate 75 Respiratory Rate 15 Blood Pressure 142/66 H 161/77 H Pulse Oximetry 96 Oxygen Delivery Method 09/03/23 12:50 09/03/23 13:00 09/03/23 13:00 Temperature Pulse Rate 73 74 Respiratory Rate 15 17 Blood Pressure 155/80 H Pulse Oximetry 94 96 Oxygen Delivery Method 09/03/23 13:10 09/03/23 13:10 09/03/23 13:20 Temperature Pulse Rate 73 Respiratory Rate 16 Blood Pressure 142/77 H 147/77 H Pulse Oximetry 94 Oxygen Delivery Method 09/03/23 13:20 09/03/23 13:30 09/03/23 13:31 Temperature Pulse Rate 74 80 80 Respiratory Rate 14 17 17 Blood Pressure Pulse Oximetry 92 96 95 Oxygen Delivery Method 09/03/23 13:31 09/03/23 13:40 09/03/23 13:40 Temperature Pulse Rate 77 Respiratory Rate 16 Blood Pressure 109/69 107/66 Pulse Oximetry 95 Oxygen Delivery Method 09/03/23 13:50 09/03/23 13:50 09/03/23 14:00 Temperature Pulse Rate 79 Respiratory Rate 16 Blood Pressure 100/62 99/64 Pulse Oximetry 95 Oxygen Delivery Method 09/03/23 14:00 Temperature Pulse Rate 80 Respiratory Rate 17 Blood Pressure Pulse Oximetry 96 Oxygen Delivery Method Medical Decision Making Lab Data Lab results reviewed: Yes I reviewed the patient's lab results. 09/03/23 11:24 09/03/23 11:24 Labs: Lab Results 06/07/24 06/07/24 06/07/24 Range/Units 11:24 13:43 15:00 WBC 6.4 (4.5-11.0) X10^3/uL RBC 4.20 L (4.5-5.9) X10^6/uL Hgb 13.3 L (13.5-17.5) g/dL Hct 40.1 L (41-53) % MCV 95.4 (80-100) fL MCH 31.8 (26-34) PG MCHC 33.3 (30-36) % RDW 13.3 (11.6-14.8) % Plt Count 212 (150-400) X10^3/uL Neut % (Auto) 75.9 H (50-75) % Lymph % (Auto) 11.6 L (25-40) % [place] % (Auto) 8.6 (3-14) % Eos % (Auto) 3.5 (2-4) % Baso % (Auto) 0.4 (0-2) % Neut # (Auto) 4800 (1860-1593) /uL Lymph # (Auto) 700 L (4480-2490) /uL [place] # (Auto) 500 (0-900) /uL Eos # (Auto) 200 (0-450) /uL Baso # (Auto) 0 (0-100) /uL PT 11.7 (9.4-12.5) SECONDS INR 1.0 (0.9-1.3) APTT 27 (25.1-36.5) SECONDS Sodium 138 (137-145) mmol/L Potassium 3.7 (3.4-5.1) mmol/L Chloride 105 (98-107) mmol/L Carbon Dioxide 26 (22-32) mmol/L BUN 14 (9-20) mg/dL Creatinine 1.02 (0.66-1.25) mg/dL Estimated GFR > 60 (>60) mL/min BUN/Creatinine Ratio 13.7 (6-22) Glucose 134 H (80-110) mg/dL Lactate 3.3 H 1.2 (0.7-2.1) mmol/L Calcium 9.0 (8.4-10.2) mg/dL Magnesium 2.0 (1.6-2.3) mg/dL Total Bilirubin 0.8 (0.2-1.3) mg/dL AST 45 (17-59) IU/L ALT 35 (<50) IU/L Alkaline Phosphatase 76 (38-126) U/L Troponin I (0.01-0.034) ng/mL Total Protein 7.2 (6.3-8.2) g/dL Albumin 3.9 (3.5-5.0) g/dL Globulin 3.3 (1.7-4.1) g/dL Albumin/Globulin Ratio 1.2 (1.0-2.8) Lipase 151 (23-300) U/L Procalcitonin 0.071 (<0.5) ng/mL Urine RBC 0-1/hpf (0-5/HPF) Urine WBC 0-1/hpf (0-5/HPF) Ur Squamous Epith Cells 0-1 /hpf (0-5/HPF) Urine Bacteria Occasional (0-1) (None) Ur Culture Indicated? Cult not indicated Vol Urine Centrifuged 10ml (spun) 09/03/23 Range/Units 17:11 WBC (4.5-11.0) X10^3/uL RBC (4.5-5.9) X10^6/uL Hgb (13.5-17.5) g/dL Hct (41-53) % MCV (80-100) fL MCH (26-34) PG MCHC (30-36) % RDW (11.6-14.8) % Plt Count (150-400) X10^3/uL Neut % (Auto) (50-75) % Lymph % (Auto) (25-40) % [place] % (Auto) (3-14) % Eos % (Auto) (2-4) % Baso % (Auto) (0-2) % Neut # (Auto) (3374-3368) /uL Lymph # (Auto) (1000-7998) /uL [place] # (Auto) (0-900) /uL Eos # (Auto) (0-450) /uL Baso # (Auto) (0-100) /uL PT (9.4-12.5) SECONDS INR (0.9-1.3) APTT (25.1-36.5) SECONDS Sodium (137-145) mmol/L Potassium (3.4-5.1) mmol/L Chloride (98-107) mmol/L Carbon Dioxide (22-32) mmol/L BUN (9-20) mg/dL Creatinine (0.66-1.25) mg/dL Estimated GFR (>60) mL/min BUN/Creatinine Ratio (6-22) Glucose (80-110) mg/dL Lactate (0.7-2.1) mmol/L Calcium (8.4-10.2) mg/dL Magnesium (1.6-2.3) mg/dL Total Bilirubin (0.2-1.3) mg/dL AST (17-59) IU/L ALT (<50) IU/L Alkaline Phosphatase (38-126) U/L Troponin I < 0.012 (0.01-0.034) ng/mL Total Protein (6.3-8.2) g/dL Albumin (3.5-5.0) g/dL Globulin (1.7-4.1) g/dL Albumin/Globulin Ratio (1.0-2.8) Lipase (23-300) U/L Procalcitonin (<0.5) ng/mL Urine RBC (0-5/HPF) Urine WBC (0-5/HPF) Ur Squamous Epith Cells (0-5/HPF) Urine Bacteria (None) Ur Culture Indicated? Vol Urine Centrifuged Urine Dip Bedside Urine Glucose Negative Bedside Urine Bilirubin - Negative Bedside Urine Ketone - Negative Urine Specific [place] 1.005 Bedside Urine Occult Blood +/- Bedside Urine pH 7.0 Bedside Urine Protein - Negative Bedside Urine Urobilinogen - Negative Bedside Urine Nitrite - Negative Bedside Urine Leukocytes - Negative Esterase Point of care testing: Urine Dip Bedside Urine Glucose Negative Bedside Urine Bilirubin - Negative Bedside Urine Ketone - Negative Urine Specific [place] 1.005 Bedside Urine Occult Blood +/- Bedside Urine pH 7.0 Bedside Urine Protein - Negative Bedside Urine Urobilinogen - Negative Bedside Urine Nitrite - Negative Bedside Urine Leukocytes - Negative Esterase ECG Data Interpretation: Normal sinus rhythm with rate of 61, no obvious ST segment elevation or depression changes. Right bundle branch block pattern limiting however. VT 166, QRS 134, QTC 453. MDM Narrative Medical decision making narrative: 78-year-old male with ongoing proton therapy for lymphoma of the neck, first-time attempt today's session premedication with 10 mg oral morphine and 1 mg oral Ativan. Serial unresponsive episodes, transient response to Narcan given by and EMS 3 doses while she was driving him up, arriving by private vehicle. Maintains airway, sleepy but arousable and conversant. Systolic blood pressure 80s noted. Recent hospital stay [facility] with low blood pressure, believes it was due to dehydration, no other findings, no antibiotics were given. Low magnesium and low potassium were noted during that stay. We will screen for sepsis, including magnesium level. IV fluid bolus initiated. So far he has not requiring any additional Narcan, further observe for airway management. No obvious trauma on exam. Patient and agreeable with this plan. Screening labs unremarkable, white blood cell count not elevated, electrolytes unremarkable. Lactate 3.3 elevated, IV fluids, we will repeat interim lactate. Check urinalysis. Magnesium also normal. Repeat lactate normal, mental status slowly cleared, no CT Head imaging done, repeat troponin negative, appeared quite alert prior to discharge home with . BP improved with IVF. records requested but none received. Instructed to follow-up with [facility] as planned, but to not used the Morphine/Ativan regiment prior to next and subsequent Proton Therapy sessions. Improved, stable, home with Critical Care Time Critical Care Time Total Critical Care Time: 35 Attestation: The high probability of a clinically significant, sudden or life threatening deterioration of the [cardiopulmonary, cerebrovascular, neurologic] system(s) required my full and direct attention, intervention and personal management. The aggregate critical care time was [35] minutes. This time is in addition to time spent performing reported procedures but includes the following: [x] Data Review and interpretation [x] Patient assessment and monitoring of vital signs [x] Documentation [x] Medication orders and management Discharge Plan Departure Patient Disposition: Home Clinical Impression: Syncope, Dehydration, Personal history of lymphoma Activity Restrictions/Additional Instructions: Proton therapy for lymphoma this morning after first-time attempt preprocedure sedation with oral morphine 10 mg, and oral lorazepam 1 mg, procedure tolerated well at [facility], however decreased mental status EN route being driven home along interested 5 by , Narcan administered, transient response, EMS called, another Narcan given, transient response, was able to use EMS supplied Narcan again a 3rd dose, prior to arrival here by private vehicle. Recent hospital stay [facility] for dehydration, low blood pressures, records requested but none received. IV fluid bolus given. Initial lactate was elevated but resolved with fluids, possible dehydration. EKG and serial blood tests not suggestive heart attack at this time. No further Narcan doses were required during ED stay. It is likely your combination of morphine and Ativan before your proton therapy caused too much sedation. Avoid this combination with future proton therapy treatment sessions. Try to drink plenty of fluids to maintain your fluid hydration status. Your mental status improved. You felt better. Discharged home with family. Follow up with your cancer providers and your primary care physician as planned. Return to this/nearest emergency department for any change worsening symptoms or any concerns prior Prescriptions: No Action levothyroxine 50 mcg tablet See Rx Instructions .ROUTE .COMPLEX Qty: 90 3RF Dose Instruction: TAKE ONE TABLET BY MOUTH ONE TIME DAILY Rx Instructions: TAKE ONE TABLET BY MOUTH ONE TIME DAILY atorvastatin 20 mg tablet 20 mg PO DAILY Referrals: Gurpreet Mckenzie DO [Primary Care Provider] - Stand Alone Forms: Patient Portal/API
[2023-09-03] MEDS: ONDANSETRON 4 MG/2 ML INJ (11:28)
--- NOTE | 2023-09-03 11:44 | DI.RAD.S_ITS ---
PROCEDURE: XR CHEST 1V INDICATIONS: suspected sepsis TECHNIQUE: One view of the chest was acquired. COMPARISON: [facility], CR, XR CHEST 1V, 08/08/2019, 11:09. FINDINGS: Surgical changes and devices: None. Lungs and pleura: Minimal right costophrenic angle blunting. Mediastinum: Mediastinal contours appear normal. Heart size is mildly prominent. Bones and chest wall: No suspicious bony lesions. Overlying soft tissues appear unremarkable. IMPRESSION: Minimal right costophrenic angle blunting suggestive of effusions versus scarring. Dictated by: Carolann Adam M.D. on 09/03/2023 at 13:15 Approved by: Carolann Adam M.D. on 09/03/2023 at 13:15
[2023-09-03] MEDS: SODIUM CHLORIDE 0.9% 1,000 ML 1000 ML IV ×3 (11:46→17:29)
[2023-09-03] MEDS: ONDANSETRON 4 MG/2 ML INJ IV (11:47)
[2023-09-03 11:53] LABS: Add Manual Diff / Slide Review NO; Basophils Absolute Auto 0 /uL (0-100); Basophils Percent Auto 0.4 % (0-2); Eosinophils Absolute Auto 200 /uL (0-450); Eosinophils Percent Auto 3.5 % (2-4); Hematocrit 40.1 % (41-53); Hemoglobin 13.3 g/dL (13.5-17.5); Lymphocytes Absolute Auto 700 /uL (1100-4500); Lymphocytes Percent Auto 11.6 % (25-40); Mean Corpuscular HGB Conc 33.3 % (30-36); Mean Corpuscular Hemoglobin 31.8 PG (26-34); Mean Corpuscular Volume 95.4 fL (80-100); Monocytes Absolute Auto 500 /uL (0-900); Monocytes Percent Auto 8.6 % (3-14); Neutrophils Absolute Auto 4800 /uL (1500-7000); Neutrophils Percent Auto 75.9 % (50-75); Platelet Count 212 X10^3/uL (150-400); Red Cell Distribution Width 13.3 % (11.6-14.8); White Blood Cell Count 6.4 X10^3/uL (4.5-11.0)
[2023-09-03 12:00] LABS: Lactate (Lactic Acid) 3.3 mmol/L (0.7-2.1)
[2023-09-03 12:02] LABS: Alanine Aminotransferase 35 IU/L (<50); Albumin 3.9 g/dL (3.5-5.0); Albumin Globulin Ratio 1.2 (1.0-2.8); Alkaline Phosphatase 76 U/L (38-126); Aspartate Aminotransferase 45 IU/L (17-59); BUN Creatinine Ratio 13.7 (6-22); Bilirubin Total 0.8 mg/dL (0.2-1.3); Blood Urea Nitrogen 14 mg/dL (9-20); Carbon Dioxide 26 mmol/L (22-32); Chloride 105 mmol/L (98-107); Estimated Glomerular Filt Rate > 60 mL/min (>60); Globulin 3.3 g/dL (1.7-4.1); Glucose 134 mg/dL (80-110); HEMOLYSIS 46 (0-50); Lipase 151 U/L (23-300); Potassium 3.7 mmol/L (3.4-5.1); Sodium 138 mmol/L (137-145); Total Protein 7.2 g/dL (6.3-8.2)
[2023-09-03 12:05] LABS: Prothrombin Time 11.7 SECONDS (9.4-12.5)
[2023-09-03 12:08] LABS: PTT Partial Thromboplastin Tim 27 SECONDS (25.1-36.5)
[2023-09-03 12:18] LABS: Procalcitonin 0.071 ng/mL (<0.5)
[2023-09-03 13:27] LABS: Reflexed Lactate in 2 Hours Y
[2023-09-03 14:14] LABS: Lactate 2HR (Lactic Acid Rflx) 1.2 mmol/L (0.7-2.1)
[2023-09-03 15:14] LABS: Bacteria Urine Occasional (0-1); Culture Indicated Urine Cult Not Indicated; RBC Urine 0-1/HPF (0-5/HPF); Squamous Epithelial Cell Urine 0-1 /HPF (0-5/HPF); Urine Volume 10mL (spun); WBC Urine 0-1/HPF (0-5/HPF)
[2023-09-03 17:42] LABS: Troponin I < 0.012 ng/mL (0.01-0.034)
== END 2023-09-03 18:23 | disposition home or self-care (01) ==
PROVIDERS: Emergency Provider Emergency Medicine; Family Provider Family Medicine; PCP Family Medicine
DX: R55 Syncope and collapse (principal); E86.0 Dehydration; I45.10 Unspecified right bundle-branch block; Z85.72 Personal history of non-Hodgkin lymphomas; Z87.891 Personal history of nicotine dependence
CPT/HCPCS: 36415; 71045; 80053; 81003; 81015; 83605; 83690; 83735; 84145; 84484; 85025; 85610; 85730; 87040; 93005; 93010; 96361; 96374; 99284; 99291; J2405

== ENCOUNTER → 2023-10-27 07:57 | Outpatient (CLI) | payer MEDICARE, OTHER, SELFPAY ==
[2023-09-08 16:24] VITALS: PULSE 67; RESP 13; O2SAT 92; BMI 23.0
[2023-10-27 08:24] LABS: Appearance Urine UA CLEAR; Bilirubin Urine UA NEGATIVE (NEGATIVE); Color Urine UA YELLOW; Glucose Urine UA NEGATIVE (Negative); Ketones Urine UA NEGATIVE (NEGATIVE); Leukocyte Esterase Urine UA TRACE (NEGATIVE); Nitrite Urine UA NEGATIVE (Negative); Occult Blood Urine UA 1+ (Negative); Protein Urine UA TRACE (Negative)
[2023-10-27 08:29] LABS: Bacteria Urine None Seen; Culture Indicated Urine Cult Not Indicated; RBC Urine 5-10/HPF (0-5/HPF); Squamous Epithelial Cell Urine 0-1 /HPF (0-5/HPF); Urine Volume 10mL (spun); WBC Urine 0-1/HPF (0-5/HPF)
[2023-10-27 09:03] LABS: Add Manual Diff / Slide Review NO; Basophils Absolute Auto 0 /uL (0-100); Basophils Percent Auto 0.3 % (0-2); Eosinophils Absolute Auto 200 /uL (0-450); Hematocrit 38.1 % (41-53); Hemoglobin 12.7 g/dL (13.5-17.5); Lymphocytes Absolute Auto 400 /uL (1100-4500); Lymphocytes Percent Auto 10.6 % (25-40); Mean Corpuscular HGB Conc 33.4 % (30-36); Mean Corpuscular Hemoglobin 31.9 PG (26-34); Mean Corpuscular Volume 95.3 fL (80-100); Monocytes Absolute Auto 500 /uL (0-900); Monocytes Percent Auto 11.3 % (3-14); Neutrophils Absolute Auto 3100 /uL (1500-7000); Neutrophils Percent Auto 72.8 % (50-75); Platelet Count 219 X10^3/uL (150-400); Red Cell Distribution Width 14.6 % (11.6-14.8); White Blood Cell Count 4.2 X10^3/uL (4.5-11.0)
[2023-10-27 09:25] LABS: Alanine Aminotransferase 29 IU/L (<50); Albumin 4.2 g/dL (3.5-5.0); Albumin Globulin Ratio 1.4 (1.0-2.8); Alkaline Phosphatase 56 U/L (38-126); Aspartate Aminotransferase 28 IU/L (17-59); BUN Creatinine Ratio 21.7 (6-22); Blood Urea Nitrogen 18 mg/dL (9-20); Calcium 8.9 mg/dL (8.4-10.2); Carbon Dioxide 25 mmol/L (22-32); Chloride 108 mmol/L (98-107); Cholesterol 173 mg/dL (140-199); Estimated Glomerular Filt Rate > 60 mL/min (>60); Globulin 2.9 g/dL (1.7-4.1); Glucose 102 mg/dL (80-110); HDL Cholesterol 63 mg/dL (40-60); HEMOLYSIS < 15 (0-50); LDL Cholesterol Calculated 99 mg/dL (<100); Potassium 4.6 mmol/L (3.4-5.1); Sodium 139 mmol/L (137-145); Total Protein 7.1 g/dL (6.3-8.2); Triglycerides 55 mg/dL (35-150)
[2023-10-27 09:56] LABS: Prostate Specific Antigen Scrn 3.94 ng/mL (0.1-4.0)
[2023-10-27 09:59] LABS: TSH w/ Reflex to FT4 1.26 uIU/mL (0.47-4.68)
== END ==
LOC: LAB 07:58
PROVIDERS: Family Provider Family Medicine; PCP Family Medicine; Referring Provider Family Medicine; Visit Provider Family Medicine
DX: E03.9 Hypothyroidism, unspecified (principal); Z12.5 Encounter for screening for malignant neoplasm of prostate; Z80.42 Family history of malignant neoplasm of prostate; E78.5 Hyperlipidemia, unspecified
CPT/HCPCS: 36415; 80053; 80061; 81001; 84443; 85025; G0103

== ENCOUNTER → 2023-11-08 08:47 | Outpatient (CLI) | payer MEDICARE, OTHER, SELFPAY ==
[2023-09-08 16:24] VITALS: PULSE 67; RESP 13; O2SAT 92; BMI 23.0
--- NOTE | 2023-11-08 08:49 | DI.RAD.S_ITS ---
PROCEDURE: FL BARIUM SWALLOW W SPEECH INDICATIONS: squamous cell carcinoma, trigeminal neuralgia, dehydration COMPARISON: None. TECHNIQUE: Examination was conducted in conjunction with speech pathology per standard protocol. In the lateral projection, filming was performed of the patient swallowing. AP projection filming may also be performed with patient swallowing. COMPARISON: FINDINGS: Function: The oral preparatory phase appears normal, with proper containment. The subsequent oral propulsive phase, pharyngeal phase, and esophageal phase of swallowing also appear normal with all proffered substances. There is laryngotracheal penetration and aspiration with thin and thick liquids. No pathologic vallecular pooling. Morphology: No cricopharyngeal bar is identified. No cervical esophageal webs. No Zenker's diverticulum. No strictures. IMPRESSION: There is aspiration with thin and thick liquids. Dictated by: Jose Ramon Freire M.D. on 11/08/2023 at 12:27 Approved by: Jose Ramon Freire M.D. on 11/08/2023 at 12:29
--- NOTE | 2023-11-08 12:57 | ST.SWALLOW ---
Visit Care Team Role Provider Type Gurpreet Mckenzie DO Attending Provider Physician Family Provider Primary Care Provider Referring Provider Specialty: Family Practice Address: [address] [place] [address], [id number] Email: Modified Barium Swallow Study CALL CIRCUIT WORKER Modified Barium Swallow Study Start: 11/08/23 10:07 Freq: Status: Active Protocol: Document 11/08/23 10:13 LNK (Rec: 11/08/23 10:48 LNK [id number]) Modified Barium Swallow Study Total Time Visit Start Time 09:00 Visit Stop Time 10:00 Total Visit Minutes [address] Mckenzie Reason for Referral Dysphagia due to head/neck CA Setting Setting Outpatient Care Patient Information Identification Type Name,Date of Patient History Pt is a 78 year old male referred to this clinic for a Modified Barium swallow Study due to difficulties secondary to head and neck cancer including his lymph nodes and vocal fold on his right side. Pt has recently completed proton therapy. Pt is currently experiencing paresis of the right side of his tongue, drooping of his right eye, and numbness on right side of the tongue. He is currently on a full liquid diet. He indicated his Drs said he could advance diet as he is able to tolerate more solid foods. Pt complains that pills tend to get stuck in his throat when swallowing. He has tried crushing his medications in the past but does not like the hassle and/or taste. He also states that liquids feel like they tend to get stuck in the throat a little bit, but ultimately he is able to swallow them. Pt describes his voice as hoarse and lower pitch. He remarked that his larynx was also target during proton treatment. Subjective Observations Pt was seated in the fluoroscopy chair with directions and procedures described for him. He indicated he understood and agreed to proceed. Patient Positioning Position View Lat-A/P Imaging Lateral View Textures Administered Trials Presented Thin Liquid via Spoon (IDDSI 0 ),Thin Liquid via Cup (IDDSI 0 ),Extremely Thick Liquid via Spoon (IDDSI 4),Puree (IDDSI 4 ),Soft & Bite-sized (IDDSI, Regular (IDDSI 7) Barium Tablet Yes The IDDSI Framework Protocol: IDDSI.1 Oral Impairment Source: The Modified Barium Swallow Impairment Profile (MBSImP??) Lip Closure Interlabial escape; no progression to anterior lip Tongue Control During Bolus Hold Cohesive bolus between tongue to palatal seal Bolus Preparation/Mastication Slow prolonged chewing/mashing with complete re-collection Bolus Transport/Lingual Motion Brisk tongue motion Oral Residue Complete oral clearance Initiation of Pharyngeal Swallow Bolus head at pyriforms Additional Oral Impairment Observations - Pt has upper and lower partial dentures in place. - labial ROM and strength WNL - mastication slow with pt reporting difficulty with bolus manipulation for advanced textures OME significant for the following: - right sided lingual weakness and numbness, resulting in tongue deviating left - right sided palate weakness with reduced elevation on phonation - suspect possible involvement of right glossopharyngeal and trigeminal nerves, possibly also facial nerve - suspect thrush on lingual surface Pharyngeal Impairment Source: The Modified Barium Swallow Impairment Profile (MBSImP??) Soft Palate Elevation No bolus between soft palate & pharyngeal wall Laryngeal Elevation Part.sup.move.thyroid cart/ part.approx.arytenoids to epiglot.petiole Anterior Hyoid Excursion Partial anterior movement Epiglottic Movement Partial inversion Laryngeal Vestibular Closure Incomplete; narrow column air/ contrast in laryngeal vestibule Pharyngeal Stripping Wave Absent Pharyngoesophageal Segment Opening Complete distention & complete duration; no obstruction of flow Tongue Base Retraction Wide column of contrast/air betwn tongue base & post. pharyngeal wall Pharyngeal Residue Collection of residue within/ on pharyngeal structures Location Diffuse (>3 areas) Additional Pharyngeal Impairment -Weak tongue base retraction Observations and hyolaryngeal elevation and movement. -Partial epiglottic inversion and weak closure of the laryngeal vestibule. Laryngeal penetration x5 (PAS 5: penetrates larynx, contacts folds, visible laryngeal residue) and jam tracheal aspiration x2 (PAS 7: below folds, visible tracheal residue despite effort). Cues cough cleared laryngeal residue, not tracheal residue. -single sips resulted in minimal penetration/aspiration; large consecutive swallows of liquids resulted in penetration/aspiration -HEAD TURN to the right was effective in prevention of penetration/aspiration of liquids -diffuse laryngeal residue observed post swallow A/P View Textures Administered Trials Presented Thin Liquid via Spoon (IDDSI 0 ) The IDDSI Framework Protocol: IDDSI.1 A/P View Observations Pharyngeal Contraction Unilateral bulging Esophageal Clearance Upright Position Esophageal retention Vocal Fold Function Decrease Approxim. Right Esophageal Function WFL Additional A-P Observations Thin liquids and a barium tablet were used. Esophageal phase appeares to be WFL Clinical Impressions Dysphagia Type Oral,Pharyngeal Findings Oral phase: -Lingual paresis right side; velar weakness right side -Difficulty with mastication control/bolus formation for advanced texture -suspect possible involvement of right glossopharyngeal and trigeminal nerves, possibly also facial nerve Pharyngeal phase: -Poor airway protection for large and/or consecutive swallows of thin liquids in normal head position; small sips are safely tolerated -Suspect vocal fold paresis/ weakness following proton therapy. Recommend ENT stroboscopy - Dr. Park/ [facility] -Suspect residual affcts of proton treatmen on soft tissue and cartilage structures within pharynx. Pt is a good candidate for Vital Stimulation therapy of pharyngeal muscles -Able to protect airway with right head turn strategy Rehabilitation Potential Good Patient Appropriate for Therapy Yes Recommendations Diet Liquids Order Thin (IDDSI 0) Diet Order Liquidised (IDDSI 3) Medication Recommendation As Tolerated,Whole in Carrier Comments Pt appears to be safely tolerate diet advance recommendations as indicated Aspiration Precautions Recommended Precautions Upright at 90 Degrees,Small Bites/Sips,Right Head Turn Treatment Plan Therapy Recommendations Outpatient Speech Therapy,Base of Tongue Exercises Recommended Referrals ENT Consult
== END ==
PROVIDERS: Family Provider Family Medicine; PCP Family Medicine; Referring Provider Family Medicine; Visit Provider Family Medicine
DX: C44.42 Squamous cell carcinoma of skin of scalp and neck (principal); G50.0 Trigeminal neuralgia; E86.0 Dehydration
CPT/HCPCS: 74230; 92611

== ENCOUNTER → 2023-12-27 09:43 | Outpatient (CLI) | payer MEDICARE, OTHER, SELFPAY ==
[2023-09-08 16:24] VITALS: PULSE 67; RESP 13; O2SAT 92; BMI 23.0
--- NOTE | 2023-12-27 09:44 | DI.CT.S_ITS ---
PROCEDURE: CT SOFT TISSUE NECK W CON INDICATIONS: Follow-up cancer treatment TECHNIQUE: After the administration of intravenous contrast, 3.0 mm axial sections acquired from the sella to the aortic arch. Additional oblique axial 3.0 mm sections acquired through the pharynx. 3 mm thick coronal and sagittal reformats were generated. For radiation dose reduction, the following was used: automated exposure control. COMPARISON: MR, MR ORBITS FACE NECK WO/W CON, 07/02/2023, 8:36. [facility], [place], PET NECK TO MID THIGH, 06/16/2023, 8:55. [facility], CT, CT SOFT TISSUE NECK WITH CONTRAST, 04/28/2023, 15:09. FINDINGS: Image quality: Excellent. Lymph nodes: Right level 2A mass with necrotic center measuring 2.7 x 1.8 cm. This is compared to 3.0 x 2.8 cm on 07/02/2023. Vessels: Visualized vasculature appears patent. Neck spaces: There is asymmetric appearance at the right base of tongue with he. There is prolapse of the right arytenoid slightly more prominent when compared to prior exam. Medial deviation of the right vocal cord thickening is present. Appearance is mildly less prominent. Glands: The parotid and submandibular glands appear normal. Thyroid gland is unremarkable. Miscellaneous: Visualized brain and orbits appear normal. Lung apices appear clear. Superficial soft tissues appear normal. Bones: No suspicious bony lesions. Visualized sinuses and mastoids appear unremarkable. IMPRESSION: Enlarged partially necrotic right level 2A mass mildly decreased in size consistent with known malignancy. Asymmetric prominence of the right tongue base as previously identified. Malignancy cannot be excluded. Medial is a nunez of the right vocal cord with thickening slightly less prominent as well as arytenoid collapse, unchanged. Dictated by: Carolann Adam M.D. on 12/27/2023 at 17:48 Approved by: Carolann Adam M.D. on 12/27/2023 at 18:06
[2023-12-27 10:12] LABS: Estimated Glomerular Filt Rate > 60 mL/min (>60)
== END ==
PROVIDERS: Radiology Diagnostic Radiology; Family Provider Family Medicine; PCP Family Medicine; Referring Provider Family Medicine; Visit Provider Family Medicine
DX: C44.42 Squamous cell carcinoma of skin of scalp and neck (principal)
CPT/HCPCS: 36415; 70491; 82565; Q9967

== ENCOUNTER 2024-03-06 10:45 | Outpatient (RCR) | payer MEDICARE, OTHER, SELFPAY ==
[2023-09-08 16:24] VITALS: PULSE 67; RESP 13; O2SAT 92; BMI 23.0
--- NOTE | 2023-12-06 15:45 | PT.OIE ---
Current Diagnoses Squamous cell carcinoma of skin of scalp and neck (12/06/23) Trigeminal neuralgia (12/06/23) Stiffness of unspecified joint, not elsewhere classified (12/06/23) Other lack of coordination (12/06/23) Other symptoms and signs involving the musculoskeletal system (12/06/23) Weakness (12/06/23) Past Medical History (Last Updated 11/08/23 @ 11:06 by Gurpreet Mckenzie DO) Acute pain of right shoulder Acute respiratory failure with hypoxia Cataract (2015) Chicken pox (1949) Colon polyps (1999) COPD (chronic obstructive pulmonary disease) CTS (carpal tunnel syndrome) FHx: prostate cancer Foreign body of ear, left GI bleeding (2015) Hearing loss (2015) Hyperlipidemia Hypothyroidism Joint pain in both hands Low HDL (under 40) Measles (1951) Mumps (1951) Myalgia Neck tightness Pneumonia Rupture quadriceps tendon (05/2023) Sepsis Skin cancer (2012) Squamous cell carcinoma of head and neck Stiffness of joints of both hands Supraspinatus tendonitis Past Surgical History (Last Reviewed 09/09/23 @ 14:36 by Brittni Cedeño MA) Anesthesia History of appendectomy (2011) History of tonsillectomy (1954) Visit Care Team Role Provider Type Gurpreet Mckenzie DO Attending Provider Physician Family Provider Primary Care Provider Referring Provider Specialty: [place] [facility] Address: [address] [place] [address], [facility] Email: Physical Therapy Initial Evaluation PT-OP-A Visit Information Start: 12/06/23 08:58 Freq: Status: Active Protocol: Document 12/06/23 08:59 NM (Rec: 12/06/23 09:47 NM [id number]) Out-Patient Physical Therapy Visit Information Visit Information Visit Type Initial Evaluation Visit Note KX after 19 visits Visit Start Time 09:00 Visit Stop Time 09:45 Visit Number 1 Evaluation Information Evaluation Date 12/06/23 Precautions Precautions Hx of skin cancer of head/neck , R shoulder rotator cuff weakness and former kurt deformity, paralysis of tongue , lymphedema and arthritis, RA , headaches Hearing and vision deficits on R side PT-OP-B Current Condition Start: 12/06/23 08:58 Freq: Status: Active Protocol: Document 12/06/23 08:59 NM (Rec: 12/06/23 09:47 NM [id number]) Current Condition History of Current Condition Onset Date September 2023 Current Complaints pain, poor mobility History of Current Condition Pt presents with R sided neck pain following cancer treatment. He recently finished proton therapy treatment due to tumor in his neck on 10/08/23. Pt began work up for cancer around February 2023, diagnosed in May- June 2023. He had had squamous skin cancer of R jaw; PMH of same type of skin cancer in R ear 5 years ago. He has had both chemotherapy and proton radiation, 34 sessions total. He states that the tumor is gone but the muscle tightness is still alot , which causes discomfort. He states that he muscles are starting to relax but still feels tight. R eyelid is drooping; states did not prior to treatment. Had not noticed changes in UE strength or pupils. He is currently going to speech therapy. Pt has also done a barium swallow, and has gone to an ENT for further assessment. 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 Pt has been in the ER 3x during previous treatment due to dehydration. He has CT scan on 12/28/23 (3 month follow up with imaging), 01/04/24 follow up with radiologist/oncologist . He has mild numbness along R jaw, R tongue. Voice is very hoarse. Pt has occasionally had headaches, 2/10 pain (over R side of head, then up/over forehead); he gets headaches every day. Pt's sight and hearing is diminished. He had cetuximab for chemo. In May 2023, pt had R knee surgery due to torn quad tendon, which influences balance and gait; unable to straighten leg completely. Prior Treatments and Tests Previous PT for R shoulder in late 2022; pt reports no change, still bothers him since ending PT Current Functional Impairments (Reported) Functional Limitations- ADL's turning head limited and painful, may be affecting chewing and speech Functional Limitations- Other reports no difficulty with sleeping PT-OP-C Subjective Start: 12/06/23 08:58 Freq: Status: Active Protocol: Document 12/06/23 08:59 NM (Rec: 12/06/23 09:47 NM [id number]) OP-PT Subjective Patient Comments Patient Comments pt consents to participate in evaluation Patient Questionnaires Neck Disability Index NDI Score 8/50 Quick Dash- Upper Extremity Quick Dash UE Score 20.45% OP-PT Pain Assessment Location neck Pain Location Details R side near SCM and scalene Intensity 1 Scale Used Numeric (0 - 10) Description Aching,Dull,Tightness Description- Other numbness at the site; 4-5/10 on tightness Frequency Constant Pain Aggravating Factors Position Pain Alleviating Factors None Other Pain Alleviating Factors sleeping Home Pain Medication Use Pain Medications Used 1 excedrin for headache every day and night PT-OP-F Manual Assessment Start: 12/06/23 08:58 Freq: Status: Active Protocol: Document 12/06/23 08:59 NM (Rec: 12/06/23 09:47 NM [id number]) Manual Assessments Soft Tissue Assessment Soft Tissue Mobility Assessment Increased restriction and hypertrophy of R SCM, paraspinals, deep neck flexors . Tightness of (R>L) levator scapula, SCM, pec, and upper trapezius. Atrophy of R upper trapezius, scalenes, rotator cuff musculature pec length: 13 cm L pec, 16 cm R pec (measured elbows from behind head to table) Joint Mobility Assessment Joint Mobility Assessment Decreased R shoulder mobility and scapular mobility. Limitations and hypomobility of cervical spine, increased rotation during supine PROM rotation and lateral flexion than seated AROM Other Manual Assessments Other Manual Assessments Cranial nerve testing: tongue deviates toward R side, tongue paresis, difficulty swallowing, decreased sensation along R tongue. Notable drooping of R eyelid, but pupils equally round and reactive to light. PT-OP-G Mobility & Gait Start: 12/06/23 08:58 Freq: Status: Active Protocol: Document 12/06/23 08:59 NM (Rec: 12/06/23 10:53 NM [id number]) OP Gait Assessment Gait Gait Assistance Required: Independent Distance (Feet) 150 Gait Deviations General Gait Pattern Antalgic Comments Gait Comments Decreased time in R stance, unable to fully extend R knee and demos signs of quad weakness on R side PT-OP-H Neuro Start: 12/06/23 08:58 Freq: Status: Active Protocol: Document 12/06/23 08:59 NM (Rec: 12/06/23 09:47 NM [id number]) Sensation Evaluation Comments Summary Comments BUE intact to light touch sensation. Less sensitivity to light touch sensation along R lower face (V2-V3 distribution) and neck (C3-C4) dermatomes Deep Tendon Reflex & Clonus Assessment Deep Tendon Reflex Bilateral Brachioradialis Deep Tendon Reflex 1+ Diminished Bilateral Bicep Deep Tendon Reflex 1+ Diminished PT-OP-J Posture/Palpation/Skin Start: 12/06/23 08:58 Freq: Status: Active Protocol: Document 12/06/23 08:59 NM (Rec: 12/06/23 09:47 NM [id number]) Posture Evaluation Position Standing Head/C-Spine Posture Forward Head Shoulder Posture (L) Rounded,(R) Rounded,(L) Forward,(R) Forward Scapula Posture (L) Elevated,(R) Elevated,(R) Tipped Arm Posture (L) Internally Rotated,(R) Internally Rotated Comments Posture Comments fwd head Palpation Assessment Location neck Palpation Details Increased tone and restrictions of R sided: SCM, scalenes, levator scapula, paraspinals, pec Atrophy noted of R upper trap, scalenes, rotator cuff Trigger point or possible palpable knot of R superior- medial angle near levator scapula distal insertion, tender to palpable and tight Skin Assessment Other Assessments Skin Assessment Comments Redness and appearance of kenney related to radiation therapy along R neck and shoulder. Skin is dipper and drier on R side than L side PT-OP-K Range of Motion Start: 12/06/23 08:58 Freq: Status: Active Protocol: Document 12/06/23 08:59 NM (Rec: 12/06/23 09:47 NM [id number]) Cervical Spine Range of Motion Cervical Spine Active Degrees Flexion 50 Extension 40 Rotation Left 42 Rotation Right 45 Lateral Flexion Left 20 Lateral Flexion Right 25 Comments discomfort w/ ext; tightness with L LF, R rot Decreased thoracic rotation, ext Shoulder Goniometric Range of Motion Shoulder Left Flexion 160 Abduction 160 Right Flexion 135 Abduction 110 Comments pain at end range PT-OP-L Special Tests Start: 12/06/23 08:58 Freq: Status: Active Protocol: Document 12/06/23 08:59 NM (Rec: 12/06/23 09:47 NM [id number]) Special Tests Cervical Spine Special Tests Spurling's Test Test Results - Traction Test Results - PT-OP-M Strength Start: 12/06/23 08:58 Freq: Status: Active Protocol: Document 12/06/23 08:59 NM (Rec: 12/06/23 09:47 NM [id number]) Cervical Spine Strength Cervical Spine Manual Muscle Testing Flexion (C1-2) 4 Good Extension 4 Good Rotation Left 3+ Fair+ Rotation Right 3+ Fair+ Lateral Flexion Left (C3) 3+ Fair+ Lateral Flexion Right (C3) 3+ Fair+ Comments mild pain with resisted rotation and lateral flexion PT-OP-Q Treatments Start: 12/06/23 08:58 Freq: Status: Active Protocol: Document 12/06/23 08:59 NM (Rec: 12/06/23 09:47 NM [id number]) Therapeutic Exercises Supine Exercises pectoralis stretch Supine Exercise Name 1. low T at 45 deg abd, 2. mid T at 90 deg abd, 3. arms behind head Side bilateral Reps/Minutes 60 ea cervical spine stretch Supine Exercise Name SCM/scalene Side right Equipment Used head supported on pillow Reps/Minutes 30 ea Other Exercises self soft tissue mobilization Other Exercise Name SCM Side right Equipment Used L assist R Reps/Minutes 2 min Comments edu to use small amount of aquaphor or lotion to lubricate, keep gentle PT-OP-T Assessment and Plan Start: 12/06/23 08:58 Freq: Status: Active Protocol: Document 12/06/23 08:59 NM (Rec: 12/06/23 09:47 NM [id number]) Physical Therapy Assessment Other Concerns Barriers to Rehabilitation Due to concurrent speech therapy, pt is requesting PT only 1x/wk. PMH includes arthritis, RA, headaches, fibromyalgia, hearing problems , lymphedema, neck pain, thyroid disorder, hx of cancer Goals Four Impairment HEP compliance Short Term Goal (STG) Pt will be issued and educated on HEP, including compliance at least 3x/wk in order to maximize progression with PT STG Duration 5 weeks Usp Goal (LTG) Pt will report compliance with HEP at least 3x/wk in order to maintain progress made during PT and to promote independence at discharge LTG Duration 10 weeks Three Impairment R cervical spine rotation 45 deg Delivery And Mail Sorter Goal (LTG) Pt will improve R rotation AROM to at least 60 deg in order to demonstrate improved mobility for visual scanning LTG Duration 10 weeks Two Impairment L cervical spine lateral flexion 20 deg and painful Delivery And Mail Sorter Goal (LTG) Pt will improve L lateral flexion AROM to within 5 deg of R lateral flexion AROM without increase in baseline pain to demonstrate improved tissue length LTG Duration 10 weeks One Impairment L cervical spine Rotation 42 deg Usp Goal (LTG) Pt will improve L rotation AROM to at least 60 deg in order to demonstrate improved mobility for visual scanning LTG Duration 10 weeks Assessment Summary Assessment Pt is a 78 y.o. male presenting with R sided neck pain related to increased muscle tightness/restriction secondary to cancer treatment. Pt recently finished proton radiation therapy and chemotherapy in September for R sided skin cancer at his R jaw . Pt currently has impairments in cervical spine ROM and ability to stabilize against resistance. Pt has soft tissue restrictions primarily of his SCM, scalenes, upper trapezius, levator scapula. He also has restrictions in pectoralis muscle length. However, he also has atrophy of his R rotator cuff muscles and upper trapezius, in addition to limitations in R shoulder AROM related to previous rotator cuff injury. Pt has impairments in cranial nerves related to his tongue and facial sensation. Pt is currently also in speech therapy due to impairments in with swallowing and speech. PT educated pt on exam findings and plan of care. He would benefit from skilled PT for flexibility, body mechanics, and gentle strengthening program to improve soft tissue mobility and symptom management. Physical Therapy Plan Frequency and Duration Frequency of Treatment 1-2x/wk Duration of treatment (weeks) 10 Plan of Care Start Date 12/06/23 Plan of Care End Date 02/18/24 Therapeutic Interventions Therapeutic Interventions Balance Training,Gait Training ,Home Exercise Program,Joint Mobilizations,Manual Therapy, Neuromuscular Re-education, Orthotic/Prosthetic Management ,Self-Care/Home Management, Sensory Integration,Soft Tissue Mobilization,Taping, Therapeutic Activities, Therapeutic Exercises Other Therapeutic Interventions No modalities due to PMH of cancer Next Visit Focus/Plan Next Note Type Treatment Note Next Visit Plan review HEP. Vertebral artery assessment cervical spine manual soft tissue, stretching, postural re-education no modalities
--- NOTE | 2023-12-13 12:53 | PT.OTN ---
Current Diagnoses Squamous cell carcinoma of skin of scalp and neck (12/13/23) Trigeminal neuralgia (12/13/23) Stiffness of unspecified joint, not elsewhere classified (12/13/23) Other lack of coordination (12/13/23) Other symptoms and signs involving the musculoskeletal system (12/13/23) Weakness (12/13/23) Physical Therapy Treatment Note PT-OP-A Visit Information Start: 12/06/23 08:58 Freq: Status: Active Protocol: Document 12/13/23 07:30 NM (Rec: 12/13/23 07:37 NM [id number]) Out-Patient Physical Therapy Visit Information Visit Information Visit Type Treatment Note Visit Start Time 07:31 Visit Stop Time 08:11 Visit Number 2 Evaluation Information Evaluation Date 12/06/23 Precautions Precautions Hx of skin cancer of head/neck , 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 He recently finished proton therapy treatment due to tumor in his neck on 10/08/23. Pt began work up for cancer around February 2023, diagnosed in May- June 2023. He had had squamous skin cancer of R jaw; PMH of same type of skin cancer in R ear 5 years ago. He has had both chemotherapy and proton radiation, 34 sessions total. He states that the tumor is gone but the muscle tightness is still alot , which causes discomfort. He states that he muscles are starting to relax but still feels tight. R eyelid is drooping; states did not prior to treatment. Had not noticed changes in UE strength or pupils. He is currently going to speech therapy. Pt has also done a barium swallow, and has gone to an ENT for further assessment. 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 Pt has been in the ER 3x during previous treatment due to dehydration. He has CT scan on 12/28/23 (3 month follow up with imaging), 01/04/24 follow up with radiologist/oncologist . He has mild numbness along R jaw, R tongue. Voice is very hoarse. Pt has occasionally had headaches, 2/10 pain (over R side of head, then up/over forehead); he gets headaches every day. Pt's sight and hearing is diminished. He had cetuximab for chemo. In May 2023, pt had R knee surgery due to torn quad tendon, which influences balance and gait; unable to straighten leg completely. Prior Treatments and Tests Previous PT for R shoulder in late 2022; pt reports no change, still bothers him since ending PT Current Functional Impairments (Reported) Functional Limitations- ADL's turning head limited and painful, may be affecting chewing and speech Functional Limitations- Other reports no difficulty with sleeping PT-OP-C Subjective Start: 12/06/23 08:58 Freq: Status: Active Protocol: Document 12/13/23 07:30 NM (Rec: 12/13/23 07:37 NM [id number]) OP-PT Subjective Patient Comments Patient Comments Pt reports that he is having baby steps with the exercises . States that the stertches make him feel tighter, but states feels little better overall. He reports that his headaches are getting better, reports only on 2 aspirin per day now. Pt asked his MD for his referral to a doctor in [place] PT-OP-F Manual Assessment Start: 12/06/23 08:58 Freq: Status: Active Protocol: Document 12/06/23 08:59 NM (Rec: 12/06/23 09:47 NM [id number]) Manual Assessments Soft Tissue Assessment Soft Tissue Mobility Assessment Increased restriction and hypertrophy of R SCM, paraspinals, deep neck flexors . Tightness of (R>L) levator scapula, SCM, pec, and upper trapezius. Atrophy of R upper trapezius, scalenes, rotator cuff musculature pec length: 13 cm L pec, 16 cm R pec (measured elbows from behind head to table) Joint Mobility Assessment Joint Mobility Assessment Decreased R shoulder mobility and scapular mobility. Limitations and hypomobility of cervical spine, increased rotation during supine PROM rotation and lateral flexion than seated AROM Other Manual Assessments Other Manual Assessments Cranial nerve testing: tongue deviates toward R side, tongue paresis, difficulty swallowing, decreased sensation along R tongue. Notable drooping of R eyelid, but pupils equally round and reactive to light. PT-OP-G Mobility & Gait Start: 12/06/23 08:58 Freq: Status: Active Protocol: Document 12/06/23 08:59 NM (Rec: 12/06/23 10:53 NM [id number]) OP Gait Assessment Gait Gait Assistance Required: Independent Distance (Feet) 150 Gait Deviations General Gait Pattern Antalgic Comments Gait Comments Decreased time in R stance, unable to fully extend R knee and demos signs of quad weakness on R side PT-OP-H Neuro Start: 12/06/23 08:58 Freq: Status: Active Protocol: Document 12/06/23 08:59 NM (Rec: 12/06/23 09:47 NM [id number]) Sensation Evaluation Comments Summary Comments BUE intact to light touch sensation. Less sensitivity to light touch sensation along R lower face (V2-V3 distribution) and neck (C3-C4) dermatomes Deep Tendon Reflex & Clonus Assessment Deep Tendon Reflex Bilateral Brachioradialis Deep Tendon Reflex 1+ Diminished Bilateral Bicep Deep Tendon Reflex 1+ Diminished PT-OP-J Posture/Palpation/Skin Start: 12/06/23 08:58 Freq: Status: Active Protocol: Document 12/06/23 08:59 NM (Rec: 12/06/23 09:47 NM [id number]) Posture Evaluation Position Standing Head/C-Spine Posture Forward Head Shoulder Posture (L) Rounded,(R) Rounded,(L) Forward,(R) Forward Scapula Posture (L) Elevated,(R) Elevated,(R) Tipped Arm Posture (L) Internally Rotated,(R) Internally Rotated Comments Posture Comments fwd head Palpation Assessment Location neck Palpation Details Increased tone and restrictions of R sided: SCM, scalenes, levator scapula, paraspinals, pec Atrophy noted of R upper trap, scalenes, rotator cuff Trigger point or possible palpable knot of R superior- medial angle near levator scapula distal insertion, tender to palpable and tight Skin Assessment Other Assessments Skin Assessment Comments Redness and appearance of kenney related to radiation therapy along R neck and shoulder. 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 PT-OP-K Range of Motion Start: 12/06/23 08:58 Freq: Status: Active Protocol: Document 12/06/23 08:59 NM (Rec: 12/06/23 09:47 NM [id number]) Cervical Spine Range of Motion Cervical Spine Active Degrees Flexion 50 Extension 40 Rotation Left 42 Rotation Right 45 Lateral Flexion Left 20 Lateral Flexion Right 25 Comments discomfort w/ ext; tightness with L LF, R rot Decreased thoracic rotation, ext Shoulder Goniometric Range of Motion Shoulder Left Flexion 160 Abduction 160 Right Flexion 135 Abduction 110 Comments pain at end range PT-OP-L Special Tests Start: 12/06/23 08:58 Freq: Status: Active Protocol: Document 12/13/23 07:30 NM (Rec: 12/13/23 12:48 NM [id number]) Special Tests Cervical Spine Special Tests Vertebral Artery Test Results - PT-OP-M Strength Start: 12/06/23 08:58 Freq: Status: Active Protocol: Document 12/06/23 08:59 NM (Rec: 12/06/23 09:47 NM [id number]) Cervical Spine Strength Cervical Spine Manual Muscle Testing Flexion (C1-2) 4 Good Extension 4 Good Rotation Left 3+ Fair+ Rotation Right 3+ Fair+ Lateral Flexion Left (C3) 3+ Fair+ Lateral Flexion Right (C3) 3+ Fair+ Comments mild pain with resisted rotation and lateral flexion PT-OP-Q Treatments Start: 12/06/23 08:58 Freq: Status: Active Protocol: Document 12/13/23 07:30 NM (Rec: 12/13/23 07:37 NM [id number]) Therapeutic Exercises Supine Exercises DNF Supine Exercise Name chin tuck Side bilateral Reps/Minutes 10x3 hold Comments PT providing tactile cues for midline, correct execution pectoralis stretch Supine Exercise Name 1. arms behind head pec stretch, 2. HADD>HABD chicken wing Side bilateral Reps/Minutes 1. 60, 2. 10x5 Sitting Exercises cervical spine stretching Sitting Exercise Name 1. SCM, 2. ant/mid scalene, 3. UT, 4. post scalene Side right Reps/Minutes 30 ea Comments uncomfortable; cued to stay w/ i range that does not increase pain Manual Therapy Treatment Consent Patient gave verbal consent for manual Yes treatment Soft Tissue Mobilization cervical spine Body Location R SCM, scalenes, UT, LS, paraspinals, DNF Mobilization Type Rolling,Other Intensity/Depth Moderate Body Position Hooklying Comments Increased tightness, restrictions of R sided anterior cervical spine muscles. Palpable reduction with mobilization and stretching, but still very restricted. SCM, scalenes, UT most restricted Joint Mobilizations 1st rib Joint R Direction caudal Grade III Body Position Hooklying Reps/Duration 10 ea Comments Monitored for pain, slightly elevated SC joint Joint R Direction caudal, lateral Grade III Body Position Hooklying Reps/Duration 10 ea Comments Monitored for pain. Slightly elevated Manual Techniques cervical spine stretch Type manual w/ shoulder depression Body Location UT, LS, SCM Body Position Hooklying Reps/Duration 2x30 ea Comments Monitored for pain. Performed R side only, reports less tightness with stretching PT-OP-T Assessment and Plan Start: 12/06/23 08:58 Freq: Status: Active Protocol: Document 12/13/23 07:30 NM (Rec: 12/13/23 07:37 NM [id number]) Physical Therapy Assessment Goals Four Impairment HEP compliance Short Term Goal (STG) Pt will be issued and educated on HEP, including compliance at least 3x/wk in order to maximize progression with PT STG Duration 5 weeks Halfway Goal (LTG) Pt will report compliance with HEP at least 3x/wk in order to maintain progress made during PT and to promote independence at discharge LTG Duration 10 weeks Three Impairment R cervical spine rotation 45 deg Halfway Goal (LTG) Pt will improve R rotation AROM to at least 60 deg in order to demonstrate improved mobility for visual scanning LTG Duration 10 weeks Two Impairment L cervical spine lateral flexion 20 deg and painful Halfway Goal (LTG) Pt will improve L lateral flexion AROM to within 5 deg of R lateral flexion AROM without increase in baseline pain to demonstrate improved tissue length LTG Duration 10 weeks One Impairment L cervical spine Rotation 42 deg Halfway Goal (LTG) Pt will improve L rotation AROM to at least 60 deg in order to demonstrate improved mobility for visual scanning LTG Duration 10 weeks Assessment Summary Assessment Pt tolerated session well, reports mild reduction in tightness at end of session. No pain reported during session. Palpable relaxation of anterior cervical spine muscles with soft tissue mobilization and stretching; however, still very tight and restricted. Initiated seated stretches with small tension and shoulder depression. Pt cued for correct execution, especially to decrease tendency for rotation vs lateral flexion. PT cued pt for midline for postural retraining due to R sided tightness, in addition to tactile/verbal cueing for correct execution during cervical retraction. Pt would benefit from skilled PT to improve cervical spine mobility, flexibility, and for symptom reduction. Physical Therapy Plan Frequency and Duration Frequency of Treatment 1-2x/wk Duration of treatment (weeks) 10 Plan of Care Start Date 12/06/23 Plan of Care End Date 02/18/24 Therapeutic Interventions Therapeutic Interventions Balance Training,Gait Training ,Home Exercise Program,Joint Mobilizations,Manual Therapy, Neuromuscular Re-education, Orthotic/Prosthetic Management ,Self-Care/Home Management, Sensory Integration,Soft Tissue Mobilization,Taping, Therapeutic Activities, Therapeutic Exercises Other Therapeutic Interventions No modalities due to PMH of cancer Next Visit Focus/Plan Next Note Type Treatment Note Next Visit Plan Review HEP as needed cervical spine manual soft tissue, stretching R side, postural re-education Trial seated vs standing chin tuck, wall posture, contract- relax isometrics of cervical spine to reduce R sided tension. Use water-based lotion for STM no modalities
--- NOTE | 2023-12-15 16:48 | PT.OTN ---
Current Diagnoses Squamous cell carcinoma of skin of scalp and neck (12/15/23) Trigeminal neuralgia (12/15/23) Stiffness of unspecified joint, not elsewhere classified (12/15/23) Other lack of coordination (12/15/23) Other symptoms and signs involving the musculoskeletal system (12/15/23) Weakness (12/15/23) Physical Therapy Treatment Note PT-OP-A Visit Information Start: 12/06/23 08:58 Freq: Status: Active Protocol: Document 12/15/23 08:15 AB (Rec: 12/15/23 09:47 AB [id number]) Out-Patient Physical Therapy Visit Information Visit Information Visit Type Treatment Note Visit Note ccess Code: [id number] Visit Start Time 09:00 Visit Stop Time 09:44 Visit Number 3 Number of STRATEGIC CONSULTANT Visits 1 Evaluation Information Evaluation Date 12/06/23 Precautions Precautions Hx of skin cancer of head/neck , 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 He recently finished proton therapy treatment due to tumor in his neck on 10/08/23. Pt began work up for cancer around February 2023, diagnosed in May- June 2023. He had had squamous skin cancer of R jaw; PMH of same type of skin cancer in R ear 5 years ago. He has had both chemotherapy and proton radiation, 34 sessions total. He states that the tumor is gone but the muscle tightness is still alot , which causes discomfort. He states that he muscles are starting to relax but still feels tight. R eyelid is drooping; states did not prior to treatment. Had not noticed changes in UE strength or pupils. He is currently going to speech therapy. Pt has also done a barium swallow, and has gone to an ENT for further assessment. 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 Pt has been in the ER 3x during previous treatment due to dehydration. He has CT scan on 12/28/23 (3 month follow up with imaging), 01/04/24 follow up with radiologist/oncologist . He has mild numbness along R jaw, R tongue. Voice is very hoarse. Pt has occasionally had headaches, 2/10 pain (over R side of head, then up/over forehead); he gets headaches every day. Pt's sight and hearing is diminished. He had cetuximab for chemo. In May 2023, pt had R knee surgery due to torn quad tendon, which influences balance and gait; unable to straighten leg completely. Prior Treatments and Tests Previous PT for R shoulder in late 2022; pt reports no change, still bothers him since ending PT Current Functional Impairments (Reported) Functional Limitations- ADL's turning head limited and painful, may be affecting chewing and speech Functional Limitations- Other reports no difficulty with sleeping PT-OP-C Subjective Start: 12/06/23 08:58 Freq: Status: Active Protocol: Document 12/15/23 08:15 AB (Rec: 12/15/23 09:47 AB [id number]) OP-PT Subjective Patient Comments Patient Comments Patient reports he is better, in flexibility, same on the tension. Patient rates pain 2/ 10 right SCM area. PT-OP-F Manual Assessment Start: 12/06/23 08:58 Freq: Status: Active Protocol: Document 12/06/23 08:59 NM (Rec: 12/06/23 09:47 NM [id number]) Manual Assessments Soft Tissue Assessment Soft Tissue Mobility Assessment Increased restriction and hypertrophy of R SCM, paraspinals, deep neck flexors . Tightness of (R>L) levator scapula, SCM, pec, and upper trapezius. Atrophy of R upper trapezius, scalenes, rotator cuff musculature pec length: 13 cm L pec, 16 cm R pec (measured elbows from behind head to table) Joint Mobility Assessment Joint Mobility Assessment Decreased R shoulder mobility and scapular mobility. Limitations and hypomobility of cervical spine, increased rotation during supine PROM rotation and lateral flexion than seated AROM Other Manual Assessments Other Manual Assessments Cranial nerve testing: tongue deviates toward R side, tongue paresis, difficulty swallowing, decreased sensation along R tongue. Notable drooping of R eyelid, but pupils equally round and reactive to light. PT-OP-G Mobility & Gait Start: 12/06/23 08:58 Freq: Status: Active Protocol: Document 12/06/23 08:59 NM (Rec: 12/06/23 10:53 NM [id number]) OP Gait Assessment Gait Gait Assistance Required: Independent Distance (Feet) 150 Gait Deviations General Gait Pattern Antalgic Comments Gait Comments Decreased time in R stance, unable to fully extend R knee and demos signs of quad weakness on R side PT-OP-H Neuro Start: 12/06/23 08:58 Freq: Status: Active Protocol: Document 12/06/23 08:59 NM (Rec: 12/06/23 09:47 NM [id number]) Sensation Evaluation Comments Summary Comments BUE intact to light touch sensation. Less sensitivity to light touch sensation along R lower face (V2-V3 distribution) and neck (C3-C4) dermatomes Deep Tendon Reflex & Clonus Assessment Deep Tendon Reflex Bilateral Brachioradialis Deep Tendon Reflex 1+ Diminished Bilateral Bicep Deep Tendon Reflex 1+ Diminished PT-OP-J Posture/Palpation/Skin Start: 12/06/23 08:58 Freq: Status: Active Protocol: Document 12/06/23 08:59 NM (Rec: 12/06/23 09:47 NM [id number]) Posture Evaluation Position Standing Head/C-Spine Posture Forward Head Shoulder Posture (L) Rounded,(R) Rounded,(L) Forward,(R) Forward Scapula Posture (L) Elevated,(R) Elevated,(R) Tipped Arm Posture (L) Internally Rotated,(R) Internally Rotated Comments Posture Comments fwd head Palpation Assessment Location neck Palpation Details Increased tone and restrictions of R sided: SCM, scalenes, levator scapula, paraspinals, pec Atrophy noted of R upper trap, scalenes, rotator cuff Trigger point or possible palpable knot of R superior- medial angle near levator scapula distal insertion, tender to palpable and tight Skin Assessment Other Assessments Skin Assessment Comments Redness and appearance of kenney related to radiation therapy along R neck and shoulder. Skin is drier tender on R side than L side PT-OP-K Range of Motion Start: 12/06/23 08:58 Freq: Status: Active Protocol: Document 12/06/23 08:59 NM (Rec: 12/06/23 09:47 NM [id number]) Cervical Spine Range of Motion Cervical Spine Active Degrees Flexion 50 Extension 40 Rotation Left 42 Rotation Right 45 Lateral Flexion Left 20 Lateral Flexion Right 25 Comments discomfort w/ ext; tightness with L LF, R rot Decreased thoracic rotation, ext Shoulder Goniometric Range of Motion Shoulder Left Flexion 160 Abduction 160 Right Flexion 135 Abduction 110 Comments pain at end range PT-OP-L Special Tests Start: 12/06/23 08:58 Freq: Status: Active Protocol: Document 12/13/23 07:30 NM (Rec: 12/13/23 12:48 NM [id number]) Special Tests Cervical Spine Special Tests Vertebral Artery Test Results - PT-OP-M Strength Start: 12/06/23 08:58 Freq: Status: Active Protocol: Document 12/06/23 08:59 NM (Rec: 12/06/23 09:47 NM [id number]) Cervical Spine Strength Cervical Spine Manual Muscle Testing Flexion (C1-2) 4 Good Extension 4 Good Rotation Left 3+ Fair+ Rotation Right 3+ Fair+ Lateral Flexion Left (C3) 3+ Fair+ Lateral Flexion Right (C3) 3+ Fair+ Comments mild pain with resisted rotation and lateral flexion PT-OP-Q Treatments Start: 12/06/23 08:58 Freq: Status: Active Protocol: Document 12/15/23 08:15 AB (Rec: 12/15/23 09:47 AB [id number]) Therapeutic Exercises Supine Exercises CS rotation Supine Exercise Name AROM on occipital float Reps/Minutes 2 minutes pectoralis stretch Supine Exercise Name 1/ 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 arms behind head Reps/Minutes 1. 2 min 2. 60 seconds with breathing and relax/stretch pattern Sitting Exercises breathing from diahpragm Sitting Exercise Name seated with UE's on pillows HEP Reps/Minutes 2 min Comments Verbal cues Other Exercises CS rotation Other Exercise Name counter plank position HEP Reps/Minutes X10 Comments Verbal and visual cues, VC to perform in pain free range Manual Therapy Treatment Consent Patient gave verbal consent for manual Yes treatment Soft Tissue Mobilization cervical spine Body Location R SCM, scalenes, UT, LS, paraspinals, Mobilization Type Rolling,Other Intensity/Depth Moderate Body Position Sitting Comments VC for breathing from diaphragm Joint Mobilizations ribs Joint right 1st and second Direction inf Body Position Sitting Reps/Duration X10 scapular mobilization Joint right scapula Direction into dep and adduction Grade III Body Position Sidelying Reps/Duration X10 each 1st rib Joint R Direction caudal Grade II Body Position Sitting Reps/Duration 10 X3ea SC joint Joint R Direction caudal Grade II Body Position Sitting Reps/Duration 10 X3ea Manual Techniques cervical spine stretch Type 1.manual at UT area for depression with exhales AROM sidebend left2. CR Reps/Duration 1.X10 for 10 breath hold 2. 30 -60 X 2 sec hold with contract relax Comments VC for breathing from diaphragm PT-OP-T Assessment and Plan Start: 12/06/23 08:58 Freq: Status: Active Protocol: Document 12/15/23 08:15 AB (Rec: 12/15/23 09:47 AB [id number]) Physical Therapy Assessment Goals Four Impairment HEP compliance Short Term Goal (STG) Pt will be issued and educated on HEP, including compliance at least 3x/wk in order to maximize progression with PT STG Duration 5 weeks Mcfp Goal (LTG) Pt will report compliance with HEP at least 3x/wk in order to maintain progress made during PT and to promote independence at discharge LTG Duration 10 weeks Three Impairment R cervical spine rotation 45 deg Health And Safety Representative Goal (LTG) Pt will improve R rotation AROM to at least 60 deg in order to demonstrate improved mobility for visual scanning LTG Duration 10 weeks Two Impairment L cervical spine lateral flexion 20 deg and painful Mcfp Goal (LTG) Pt will improve L lateral flexion AROM to within 5 deg of R lateral flexion AROM without increase in baseline pain to demonstrate improved tissue length LTG Duration 10 weeks One Impairment L cervical spine Rotation 42 deg Health And Safety Representative Goal (LTG) Pt will improve L rotation AROM to at least 60 deg in order to demonstrate improved mobility for visual scanning LTG Duration 10 weeks Assessment Summary Assessment Patient reports right side of neck feels tighter end of session. Good eryn to exercises able to perform CS rotation in counter plank with good form. Physical Therapy Plan Frequency and Duration Frequency of Treatment 1-2x/wk Duration of treatment (weeks) 10 Plan of Care Start Date 12/06/23 Plan of Care End Date 02/18/24 Next Visit Focus/Plan Next Note Type Treatment Note Next Visit Plan Review HEP as needed cervical spine manual soft tissue, stretching R side, postural re-education Trial seated vs standing chin tuck, wall posture, contract- relax isometrics of cervical spine to reduce R sided tension. Use water-based lotion for STM no modalities
--- NOTE | 2023-12-20 12:15 | PT.OTN ---
Current Diagnoses Squamous cell carcinoma of skin of scalp and neck (12/20/23) Trigeminal neuralgia (12/20/23) Stiffness of unspecified joint, not elsewhere classified (12/20/23) Other lack of coordination (12/20/23) Other symptoms and signs involving the musculoskeletal system (12/20/23) Weakness (12/20/23) Physical Therapy Treatment Note PT-OP-A Visit Information Start: 12/06/23 08:58 Freq: Status: Active Protocol: Document 12/20/23 08:10 AB (Rec: 12/20/23 12:14 AB [id number]) Out-Patient Physical Therapy Visit Information Visit Information Visit Type Treatment Note Visit Note ccess Code: [id number] Visit Start Time 09:50 Visit Stop Time 10:31 Visit Number 3 Number of OFFENDER JOB RETENTION SPECIALIST Visits 1 Evaluation Information Evaluation Date 12/06/23 Precautions Precautions Hx of skin cancer of head/neck , 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 He recently finished proton therapy treatment due to tumor in his neck on 10/08/23. Pt began work up for cancer around February 2023, diagnosed in May- June 2023. He had had squamous skin cancer of R jaw; PMH of same type of skin cancer in R ear 5 years ago. He has had both chemotherapy and proton radiation, 34 sessions total. He states that the tumor is gone but the muscle tightness is still alot , which causes discomfort. He states that he muscles are starting to relax but still feels tight. R eyelid is drooping; states did not prior to treatment. Had not noticed changes in UE strength or pupils. He is currently going to speech therapy. Pt has also done a barium swallow, and has gone to an ENT for further assessment. 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 Pt has been in the ER 3x during previous treatment due to dehydration. He has CT scan on 12/28/23 (3 month follow up with imaging), 01/04/24 follow up with radiologist/oncologist . He has mild numbness along R jaw, R tongue. Voice is very hoarse. Pt has occasionally had headaches, 2/10 pain (over R side of head, then up/over forehead); he gets headaches every day. Pt's sight and hearing is diminished. He had cetuximab for chemo. In May 2023, pt had R knee surgery due to torn quad tendon, which influences balance and gait; unable to straighten leg completely. Prior Treatments and Tests Previous PT for R shoulder in late 2022; pt reports no change, still bothers him since ending PT Current Functional Impairments (Reported) Functional Limitations- ADL's turning head limited and painful, may be affecting chewing and speech Functional Limitations- Other reports no difficulty with sleeping PT-OP-C Subjective Start: 12/06/23 08:58 Freq: Status: Active Protocol: Document 12/20/23 08:10 AB (Rec: 12/20/23 12:14 AB [id number]) OP-PT Subjective Patient Comments Patient Comments Patient reports he is a little better, muscle is less tight, speacking and swallowing are better. PT-OP-F Manual Assessment Start: 12/06/23 08:58 Freq: Status: Active Protocol: Document 12/06/23 08:59 NM (Rec: 12/06/23 09:47 NM [id number]) Manual Assessments Soft Tissue Assessment Soft Tissue Mobility Assessment Increased restriction and hypertrophy of R SCM, paraspinals, deep neck flexors . Tightness of (R>L) levator scapula, SCM, pec, and upper trapezius. Atrophy of R upper trapezius, scalenes, rotator cuff musculature pec length: 13 cm L pec, 16 cm R pec (measured elbows from behind head to table) Joint Mobility Assessment Joint Mobility Assessment Decreased R shoulder mobility and scapular mobility. Limitations and hypomobility of cervical spine, increased rotation during supine PROM rotation and lateral flexion than seated AROM Other Manual Assessments Other Manual Assessments Cranial nerve testing: tongue deviates toward R side, tongue paresis, difficulty swallowing, decreased sensation along R tongue. Notable drooping of R eyelid, but pupils equally round and reactive to light. PT-OP-G Mobility & Gait Start: 12/06/23 08:58 Freq: Status: Active Protocol: Document 12/06/23 08:59 NM (Rec: 12/06/23 10:53 NM [id number]) OP Gait Assessment Gait Gait Assistance Required: Independent Distance (Feet) 150 Gait Deviations General Gait Pattern Antalgic Comments Gait Comments Decreased time in R stance, unable to fully extend R knee and demos signs of quad weakness on R side PT-OP-H Neuro Start: 12/06/23 08:58 Freq: Status: Active Protocol: Document 12/06/23 08:59 NM (Rec: 12/06/23 09:47 NM [id number]) Sensation Evaluation Comments Summary Comments BUE intact to light touch sensation. Less sensitivity to light touch sensation along R lower face (V2-V3 distribution) and neck (C3-C4) dermatomes Deep Tendon Reflex & Clonus Assessment Deep Tendon Reflex Bilateral Brachioradialis Deep Tendon Reflex 1+ Diminished Bilateral Bicep Deep Tendon Reflex 1+ Diminished PT-OP-J Posture/Palpation/Skin Start: 12/06/23 08:58 Freq: Status: Active Protocol: Document 12/06/23 08:59 NM (Rec: 12/06/23 09:47 NM [id number]) Posture Evaluation Position Standing Head/C-Spine Posture Forward Head Shoulder Posture (L) Rounded,(R) Rounded,(L) Forward,(R) Forward Scapula Posture (L) Elevated,(R) Elevated,(R) Tipped Arm Posture (L) Internally Rotated,(R) Internally Rotated Comments Posture Comments fwd head Palpation Assessment Location neck Palpation Details Increased tone and restrictions of R sided: SCM, scalenes, levator scapula, paraspinals, pec Atrophy noted of R upper trap, scalenes, rotator cuff Trigger point or possible palpable knot of R superior- medial angle near levator scapula distal insertion, tender to palpable and tight Skin Assessment Other Assessments Skin Assessment Comments Redness and appearance of kenney related to radiation therapy along R neck and shoulder. 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 PT-OP-K Range of Motion Start: 12/06/23 08:58 Freq: Status: Active Protocol: Document 12/06/23 08:59 NM (Rec: 12/06/23 09:47 NM [id number]) Cervical Spine Range of Motion Cervical Spine Active Degrees Flexion 50 Extension 40 Rotation Left 42 Rotation Right 45 Lateral Flexion Left 20 Lateral Flexion Right 25 Comments discomfort w/ ext; tightness with L LF, R rot Decreased thoracic rotation, ext Shoulder Goniometric Range of Motion Shoulder Left Flexion 160 Abduction 160 Right Flexion 135 Abduction 110 Comments pain at end range PT-OP-L Special Tests Start: 12/06/23 08:58 Freq: Status: Active Protocol: Document 12/13/23 07:30 NM (Rec: 12/13/23 12:48 NM [id number]) Special Tests Cervical Spine Special Tests Vertebral Artery Test Results - PT-OP-M Strength Start: 12/06/23 08:58 Freq: Status: Active Protocol: Document 12/06/23 08:59 NM (Rec: 12/06/23 09:47 NM [id number]) Cervical Spine Strength Cervical Spine Manual Muscle Testing Flexion (C1-2) 4 Good Extension 4 Good Rotation Left 3+ Fair+ Rotation Right 3+ Fair+ Lateral Flexion Left (C3) 3+ Fair+ Lateral Flexion Right (C3) 3+ Fair+ Comments mild pain with resisted rotation and lateral flexion PT-OP-Q Treatments Start: 12/06/23 08:58 Freq: Status: Active Protocol: Document 12/20/23 08:10 AB (Rec: 12/20/23 12:14 AB [id number]) Therapeutic Exercises Supine Exercises CS rotation Supine Exercise Name AROM on occipital float Reps/Minutes 2 minutes pectoralis stretch Supine Exercise Name 1/ 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 arms behind head Reps/Minutes 1. 2 min 2. 60 seconds with breathing and relax/stretch pattern Sitting Exercises cervical spine stretching Sitting Exercise Name 1. SCM, 2. ant/mid scalene, 3. UT, 4. post scalene Side right Reps/Minutes 30 ea Comments Verbal cues Other Exercises CS rotation Other Exercise Name counter plank position HEP Reps/Minutes X10 Comments Verbal and visual cues, VC to perform in pain free range self soft tissue mobilization Other Exercise Name SCM Side right Equipment Used L assist R Reps/Minutes 1 min Comments edu to use small amount of aquaphor or lotion to lubricate, keep gentle Manual Therapy Treatment Soft Tissue Mobilization cervical spine Body Location R SCM, scalenes, UT, LS, paraspinals, Mobilization Type Rolling,Other Intensity/Depth Moderate Body Position Sitting Comments VC for breathing from diaphragm Joint Mobilizations ribs Joint right and second Direction inf Body Position Sitting Reps/Duration X10 scapular mobilization Joint right scapula Direction into dep and adduction Grade III Body Position Sidelying Reps/Duration X10 each SC joint Joint R Direction caudal Grade II Body Position Sitting Reps/Duration 10 X3ea PT-OP-T Assessment and Plan Start: 12/06/23 08:58 Freq: Status: Active Protocol: Document 12/20/23 08:10 AB (Rec: 12/20/23 12:14 AB [id number]) Physical Therapy Assessment Goals Four Impairment HEP compliance Short Term Goal (STG) Pt will be issued and educated on HEP, including compliance at least 3x/wk in order to maximize progression with PT STG Duration 5 weeks Hand Bunch Maker Goal (LTG) Pt will report compliance with HEP at least 3x/wk in order to maintain progress made during PT and to promote independence at discharge LTG Duration 10 weeks Three Impairment R cervical spine rotation 45 deg Hand Bunch Maker Goal (LTG) Pt will improve R rotation AROM to at least 60 deg in order to demonstrate improved mobility for visual scanning LTG Duration 10 weeks Two Impairment L cervical spine lateral flexion 20 deg and painful Jail Goal (LTG) Pt will improve L lateral flexion AROM to within 5 deg of R lateral flexion AROM without increase in baseline pain to demonstrate improved tissue length LTG Duration 10 weeks One Impairment L cervical spine Rotation 42 deg Hand Bunch Maker Goal (LTG) Pt will improve L rotation AROM to at least 60 deg in order to demonstrate improved mobility for visual scanning LTG Duration 10 weeks Assessment Summary Assessment Patient reports no pain, a little tightness end of session. Physical Therapy Plan Frequency and Duration Frequency of Treatment 1-2x/wk Duration of treatment (weeks) 10 Plan of Care Start Date 12/06/23 Plan of Care End Date 02/18/24 Next Visit Focus/Plan Next Note Type Treatment Note Next Visit Plan Review HEP as needed cervical spine manual soft tissue, stretching R side, postural re-education Trial seated vs standing chin tuck, wall posture, contract- relax isometrics of cervical spine to reduce R sided tension. Use water-based lotion for STM no modalities Assess CS AROM rotation
--- NOTE | 2023-12-23 12:48 | PT.OTN ---
Current Diagnoses Squamous cell carcinoma of skin of scalp and neck (12/23/23) Trigeminal neuralgia (12/23/23) Stiffness of unspecified joint, not elsewhere classified (12/23/23) Other lack of coordination (12/23/23) Other symptoms and signs involving the musculoskeletal system (12/23/23) Weakness (12/23/23) Physical Therapy Treatment Note PT-OP-A Visit Information Start: 12/06/23 08:58 Freq: Status: Active Protocol: Document 12/23/23 10:33 NM (Rec: 12/23/23 11:17 NM [id number]) Out-Patient Physical Therapy Visit Information Visit Information Visit Type Treatment Note Visit Start Time 10:33 Visit Stop Time 11:13 Visit Number 5 Evaluation Information Evaluation Date 12/06/23 Precautions Precautions Hx of skin cancer of head/neck , 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 He recently finished proton therapy treatment due to tumor in his neck on 10/08/23. Pt began work up for cancer around February 2023, diagnosed in May- June 2023. He had had squamous skin cancer of R jaw; PMH of same type of skin cancer in R ear 5 years ago. He has had both chemotherapy and proton radiation, 34 sessions total. He states that the tumor is gone but the muscle tightness is still alot , which causes discomfort. He states that he muscles are starting to relax but still feels tight. R eyelid is drooping; states did not prior to treatment. Had not noticed changes in UE strength or pupils. He is currently going to speech therapy. Pt has also done a barium swallow, and has gone to an ENT for further assessment. 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 Pt has been in the ER 3x during previous treatment due to dehydration. He has CT scan on 12/28/23 (3 month follow up with imaging), 01/04/24 follow up with radiologist/oncologist . He has mild numbness along R jaw, R tongue. Voice is very hoarse. Pt has occasionally had headaches, 2/10 pain (over R side of head, then up/over forehead); he gets headaches every day. Pt's sight and hearing is diminished. He had cetuximab for chemo. In May 2023, pt had R knee surgery due to torn quad tendon, which influences balance and gait; unable to straighten leg completely. Prior Treatments and Tests Previous PT for R shoulder in late 2022; pt reports no change, still bothers him since ending PT Current Functional Impairments (Reported) Functional Limitations- ADL's turning head limited and painful, may be affecting chewing and speech Functional Limitations- Other reports no difficulty with sleeping PT-OP-C Subjective Start: 12/06/23 08:58 Freq: Status: Active Protocol: Document 12/23/23 10:33 NM (Rec: 12/23/23 11:17 NM [id number]) OP-PT Subjective Patient Comments Patient Comments Pt reports less tight today but states was tight this am. Reports getting better. States probably from sleeping. Can sleep on both sides now. Tried hard cheese in speech therapy today, which was new. Pt now reports that he has a bulge that he did not notice before at his R jaw. Has CT scan next week then oncology appt in following weeks PT-OP-F Manual Assessment Start: 12/06/23 08:58 Freq: Status: Active Protocol: Document 12/06/23 08:59 NM (Rec: 12/06/23 09:47 NM [id number]) Manual Assessments Soft Tissue Assessment Soft Tissue Mobility Assessment Increased restriction and hypertrophy of R SCM, paraspinals, deep neck flexors . Tightness of (R>L) levator scapula, SCM, pec, and upper trapezius. Atrophy of R upper trapezius, scalenes, rotator cuff musculature pec length: 13 cm L pec, 16 cm R pec (measured elbows from behind head to table) Joint Mobility Assessment Joint Mobility Assessment Decreased R shoulder mobility and scapular mobility. Limitations and hypomobility of cervical spine, increased rotation during supine PROM rotation and lateral flexion than seated AROM Other Manual Assessments Other Manual Assessments Cranial nerve testing: tongue deviates toward R side, tongue paresis, difficulty swallowing, decreased sensation along R tongue. Notable drooping of R eyelid, but pupils equally round and reactive to light. PT-OP-G Mobility & Gait Start: 12/06/23 08:58 Freq: Status: Active Protocol: Document 12/06/23 08:59 NM (Rec: 12/06/23 10:53 NM [id number]) OP Gait Assessment Gait Gait Assistance Required: Independent Distance (Feet) 150 Gait Deviations General Gait Pattern Antalgic Comments Gait Comments Decreased time in R stance, unable to fully extend R knee and demos signs of quad weakness on R side PT-OP-H Neuro Start: 12/06/23 08:58 Freq: Status: Active Protocol: Document 12/06/23 08:59 NM (Rec: 12/06/23 09:47 NM [id number]) Sensation Evaluation Comments Summary Comments BUE intact to light touch sensation. Less sensitivity to light touch sensation along R lower face (V2-V3 distribution) and neck (C3-C4) dermatomes Deep Tendon Reflex & Clonus Assessment Deep Tendon Reflex Bilateral Brachioradialis Deep Tendon Reflex 1+ Diminished Bilateral Bicep Deep Tendon Reflex 1+ Diminished PT-OP-J Posture/Palpation/Skin Start: 12/06/23 08:58 Freq: Status: Active Protocol: Document 12/06/23 08:59 NM (Rec: 12/06/23 09:47 NM [id number]) Posture Evaluation Position Standing Head/C-Spine Posture Forward Head Shoulder Posture (L) Rounded,(R) Rounded,(L) Forward,(R) Forward Scapula Posture (L) Elevated,(R) Elevated,(R) Tipped Arm Posture (L) Internally Rotated,(R) Internally Rotated Comments Posture Comments fwd head Palpation Assessment Location neck Palpation Details Increased tone and restrictions of R sided: SCM, scalenes, levator scapula, paraspinals, pec Atrophy noted of R upper trap, scalenes, rotator cuff Trigger point or possible palpable knot of R superior- medial angle near levator scapula distal insertion, tender to palpable and tight Skin Assessment Other Assessments Skin Assessment Comments Redness and appearance of kenney related to radiation therapy along R neck and shoulder. Skin is sugar drier on R side than L side PT-OP-K Range of Motion Start: 12/06/23 08:58 Freq: Status: Active Protocol: Document 12/06/23 08:59 NM (Rec: 12/06/23 09:47 NM [id number]) Cervical Spine Range of Motion Cervical Spine Active Degrees Flexion 50 Extension 40 Rotation Left 42 Rotation Right 45 Lateral Flexion Left 20 Lateral Flexion Right 25 Comments discomfort w/ ext; tightness with L LF, R rot Decreased thoracic rotation, ext Shoulder Goniometric Range of Motion Shoulder Left Flexion 160 Abduction 160 Right Flexion 135 Abduction 110 Comments pain at end range PT-OP-L Special Tests Start: 12/06/23 08:58 Freq: Status: Active Protocol: Document 12/13/23 07:30 NM (Rec: 12/13/23 12:48 NM [id number]) Special Tests Cervical Spine Special Tests Vertebral Artery Test Results - PT-OP-M Strength Start: 12/06/23 08:58 Freq: Status: Active Protocol: Document 12/06/23 08:59 NM (Rec: 12/06/23 09:47 NM [id number]) Cervical Spine Strength Cervical Spine Manual Muscle Testing Flexion (C1-2) 4 Good Extension 4 Good Rotation Left 3+ Fair+ Rotation Right 3+ Fair+ Lateral Flexion Left (C3) 3+ Fair+ Lateral Flexion Right (C3) 3+ Fair+ Comments mild pain with resisted rotation and lateral flexion PT-OP-Q Treatments Start: 12/06/23 08:58 Freq: Status: Active Protocol: Document 12/23/23 10:33 NM (Rec: 12/23/23 11:17 NM [id number]) Therapeutic Exercises Supine Exercises DNF Supine Exercise Name 1. chin tuck, 2. DNF + lift Side bilateral Equipment Used pillow Reps/Minutes 1. 10x3, 2. 10 Comments cued move away like dog is licking your face; cued DNF through ROM Sidelying Exercises CS AROM Sidelying Exercise Name L lateral flexion Resistance AROM Reps/Minutes 10 Other Exercises wall posture Other Exercise Name 1. chin tuck, 2. CS rot w/ slight flex, 3. B ER w/ scap squeeze Side bilateral Resistance AROM Equipment Used pillow behind head Reps/Minutes 1. 10, 2. 10 ea, 3. 10 Comments d/c slight flex d/t dizziness Manual Therapy Treatment Consent Patient gave verbal consent for manual Yes treatment Soft Tissue Mobilization cervical spine Body Location R SCM, scalenes, UT, LS, paraspinals, Mobilization Type Rolling,Other Intensity/Depth Moderate Body Position Sitting Comments VC for breathing from diaphragm. Less tightness Joint Mobilizations scapular mobilization Joint right scapula Direction into dep and adduction Grade III Body Position Sitting Reps/Duration 10 1st rib Joint R Direction caudal Grade II Body Position Sitting Reps/Duration 10x3 SC joint Joint R Direction caudal Grade II Body Position Sitting Reps/Duration 10 X3ea Manual Techniques contract-relax Type R lateral flex volodymyr > relax and move into L lateral flexion Body Location cervical spine (SCM) Body Position Hooklying Reps/Duration 15x5 Comments PT providing manual resistance . Following soft tissue mobilization cervical spine stretch Type passive stretch into L lateral flexion and rotation Reps/Duration 2 min PT-OP-T Assessment and Plan Start: 12/06/23 08:58 Freq: Status: Active Protocol: Document 12/23/23 10:33 NM (Rec: 12/23/23 11:17 NM [id number]) Physical Therapy Assessment Goals Four Impairment HEP compliance Short Term Goal (STG) Pt will be issued and educated on HEP, including compliance at least 3x/wk in order to maximize progression with PT STG Duration 5 weeks Longterm Goal (LTG) Pt will report compliance with HEP at least 3x/wk in order to maintain progress made during PT and to promote independence at discharge LTG Duration 10 weeks Three Impairment R cervical spine rotation 45 deg Longterm Goal (LTG) Pt will improve R rotation AROM to at least 60 deg in order to demonstrate improved mobility for visual scanning LTG Duration 10 weeks Two Impairment L cervical spine lateral flexion 20 deg and painful Longterm Goal (LTG) Pt will improve L lateral flexion AROM to within 5 deg of R lateral flexion AROM without increase in baseline pain to demonstrate improved tissue length LTG Duration 10 weeks One Impairment L cervical spine Rotation 42 deg Architecture Department Chair Goal (LTG) Pt will improve L rotation AROM to at least 60 deg in order to demonstrate improved mobility for visual scanning LTG Duration 10 weeks Assessment Summary Assessment Pt tolerated session well, reporting less tightness in R anterior neck at end of session. Initiated contract- relax and gentle passive sustained stretching of SCM/ scalenes. Pt responds well but continues to have limitations with L lateral flexion due to R tightness. Initiated cervical retraction in both supine and standing to activate deep neck flexors and promote improved posture. Pt challenged with form and maintaining correct positioning when multi-step motion. Pt reports dizziness with cervical rotation + ext at wall, which resolves when not in that position. Pt would benefit from skilled PT for cervical spine flexibility and periscapular strengthening in order to improve muscle length and symptom management. Physical Therapy Plan Frequency and Duration Frequency of Treatment 1-2x/wk Duration of treatment (weeks) 10 Plan of Care Start Date 12/06/23 Plan of Care End Date 02/18/24 Therapeutic Interventions Therapeutic Interventions Balance Training,Gait Training ,Home Exercise Program,Joint Mobilizations,Manual Therapy, Neuromuscular Re-education, Orthotic/Prosthetic Management ,Self-Care/Home Management, Sensory Integration,Soft Tissue Mobilization,Taping, Therapeutic Activities, Therapeutic Exercises Other Therapeutic Interventions No modalities due to PMH of cancer Next Visit Focus/Plan Next Note Type Treatment Note Next Visit Plan Condense/review HEP as needed cervical spine manual soft tissue, stretching R side, postural re-education elli in standing review standing chin tuck, wall posture and add periscapular activation, contract-relax isometrics of cervical spine to reduce R sided tension. Use water-based lotion for STM no modalities Assess CS AROM rotation
--- NOTE | 2023-12-28 08:58 | PT.OTN ---
Current Diagnoses Squamous cell carcinoma of skin of scalp and neck (12/28/23) Trigeminal neuralgia (12/28/23) Stiffness of unspecified joint, not elsewhere classified (12/28/23) Other lack of coordination (12/28/23) Other symptoms and signs involving the musculoskeletal system (12/28/23) Weakness (12/28/23) Physical Therapy Treatment Note PT-OP-A Visit Information Start: 12/06/23 08:58 Freq: Status: Active Protocol: Document 12/28/23 08:18 SP (Rec: 12/28/23 09:03 SP [id number]) Out-Patient Physical Therapy Visit Information Visit Information Visit Type Treatment Note Visit Start Time 08:18 Visit Stop Time 08:58 Visit Number 6 Number of MORGUE LIBRARIAN Visits 1 Evaluation Information Evaluation Date 12/06/23 Precautions Precautions Hx of skin cancer of head/neck , 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 He recently finished proton therapy treatment due to tumor in his neck on 10/08/23. Pt began work up for cancer around February 2023, diagnosed in May- June 2023. He had had squamous skin cancer of R jaw; PMH of same type of skin cancer in R ear 5 years ago. He has had both chemotherapy and proton radiation, 34 sessions total. He states that the tumor is gone but the muscle tightness is still alot , which causes discomfort. He states that he muscles are starting to relax but still feels tight. R eyelid is drooping; states did not prior to treatment. Had not noticed changes in UE strength or pupils. He is currently going to speech therapy. Pt has also done a barium swallow, and has gone to an ENT for further assessment. 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 Pt has been in the ER 3x during previous treatment due to dehydration. He has CT scan on 12/28/23 (3 month follow up with imaging), 01/04/24 follow up with radiologist/oncologist . He has mild numbness along R jaw, R tongue. Voice is very hoarse. Pt has occasionally had headaches, 2/10 pain (over R side of head, then up/over forehead); he gets headaches every day. Pt's sight and hearing is diminished. He had cetuximab for chemo. In May 2023, pt had R knee surgery due to torn quad tendon, which influences balance and gait; unable to straighten leg completely. Prior Treatments and Tests Previous PT for R shoulder in late 2022; pt reports no change, still bothers him since ending PT Current Functional Impairments (Reported) Functional Limitations- ADL's turning head limited and painful, may be affecting chewing and speech Functional Limitations- Other reports no difficulty with sleeping PT-OP-C Subjective Start: 12/06/23 08:58 Freq: Status: Active Protocol: Document 12/28/23 08:18 SP (Rec: 12/28/23 09:03 SP [id number]) OP-PT Subjective Patient Comments Patient Comments Pt reports felt good after last tx. Trying to incorporate HEP with life, seems like many HEP and trying figure out what ones to do. Would like to condense, will bring HOs nex ttx. He has a [address] scan and has a 3mm mass but nothing about cancer, but maignancy in tongue. PT-OP-F Manual Assessment Start: 12/06/23 08:58 Freq: Status: Active Protocol: Document 12/06/23 08:59 NM (Rec: 12/06/23 09:47 NM [id number]) Manual Assessments Soft Tissue Assessment Soft Tissue Mobility Assessment Increased restriction and hypertrophy of R SCM, paraspinals, deep neck flexors . Tightness of (R>L) levator scapula, SCM, pec, and upper trapezius. Atrophy of R upper trapezius, scalenes, rotator cuff musculature pec length: 13 cm L pec, 16 cm R pec (measured elbows from behind head to table) Joint Mobility Assessment Joint Mobility Assessment Decreased R shoulder mobility and scapular mobility. Limitations and hypomobility of cervical spine, increased rotation during supine PROM rotation and lateral flexion than seated AROM Other Manual Assessments Other Manual Assessments Cranial nerve testing: tongue deviates toward R side, tongue paresis, difficulty swallowing, decreased sensation along R tongue. Notable drooping of R eyelid, but pupils equally round and reactive to light. PT-OP-G Mobility & Gait Start: 12/06/23 08:58 Freq: Status: Active Protocol: Document 12/06/23 08:59 NM (Rec: 12/06/23 10:53 NM [id number]) OP Gait Assessment Gait Gait Assistance Required: Independent Distance (Feet) 150 Gait Deviations General Gait Pattern Antalgic Comments Gait Comments Decreased time in R stance, unable to fully extend R knee and demos signs of quad weakness on R side PT-OP-H Neuro Start: 12/06/23 08:58 Freq: Status: Active Protocol: Document 12/06/23 08:59 NM (Rec: 12/06/23 09:47 NM [id number]) Sensation Evaluation Comments Summary Comments BUE intact to light touch sensation. Less sensitivity to light touch sensation along R lower face (V2-V3 distribution) and neck (C3-C4) dermatomes Deep Tendon Reflex & Clonus Assessment Deep Tendon Reflex Bilateral Brachioradialis Deep Tendon Reflex 1+ Diminished Bilateral Bicep Deep Tendon Reflex 1+ Diminished PT-OP-J Posture/Palpation/Skin Start: 12/06/23 08:58 Freq: Status: Active Protocol: Document 12/06/23 08:59 NM (Rec: 12/06/23 09:47 NM [id number]) Posture Evaluation Position Standing Head/C-Spine Posture Forward Head Shoulder Posture (L) Rounded,(R) Rounded,(L) Forward,(R) Forward Scapula Posture (L) Elevated,(R) Elevated,(R) Tipped Arm Posture (L) Internally Rotated,(R) Internally Rotated Comments Posture Comments fwd head Palpation Assessment Location neck Palpation Details Increased tone and restrictions of R sided: SCM, scalenes, levator scapula, paraspinals, pec Atrophy noted of R upper trap, scalenes, rotator cuff Trigger point or possible palpable knot of R superior- medial angle near levator scapula distal insertion, tender to palpable and tight Skin Assessment Other Assessments Skin Assessment Comments Redness and appearance of kenney related to radiation therapy along R neck and shoulder. Skin is cloth drier on R side than L side PT-OP-K Range of Motion Start: 12/06/23 08:58 Freq: Status: Active Protocol: Document 12/06/23 08:59 NM (Rec: 12/06/23 09:47 NM [id number]) Cervical Spine Range of Motion Cervical Spine Active Degrees Flexion 50 Extension 40 Rotation Left 42 Rotation Right 45 Lateral Flexion Left 20 Lateral Flexion Right 25 Comments discomfort w/ ext; tightness with L LF, R rot Decreased thoracic rotation, ext Shoulder Goniometric Range of Motion Shoulder Left Flexion 160 Abduction 160 Right Flexion 135 Abduction 110 Comments pain at end range PT-OP-L Special Tests Start: 12/06/23 08:58 Freq: Status: Active Protocol: Document 12/13/23 07:30 NM (Rec: 12/13/23 12:48 NM [id number]) Special Tests Cervical Spine Special Tests Vertebral Artery Test Results - PT-OP-M Strength Start: 12/06/23 08:58 Freq: Status: Active Protocol: Document 12/06/23 08:59 NM (Rec: 12/06/23 09:47 NM [id number]) Cervical Spine Strength Cervical Spine Manual Muscle Testing Flexion (C1-2) 4 Good Extension 4 Good Rotation Left 3+ Fair+ Rotation Right 3+ Fair+ Lateral Flexion Left (C3) 3+ Fair+ Lateral Flexion Right (C3) 3+ Fair+ Comments mild pain with resisted rotation and lateral flexion PT-OP-Q Treatments Start: 12/06/23 08:58 Freq: Status: Active Protocol: Document 12/28/23 08:18 SP (Rec: 12/28/23 09:03 SP [id number]) Therapeutic Exercises Supine Exercises DNF Supine Exercise Name 1. chin tuck, 2. DNF + lift Side bilateral Equipment Used pillow Reps/Minutes 1. 10x3, 2. 10 Comments cued move away like dog is licking your face; cued DNF through ROM Sidelying Exercises CS AROM Sidelying Exercise Name L lateral flexion Resistance AROM Equipment Used R SL Reps/Minutes 10 Comments no pain Other Exercises wall posture Other Exercise Name 1. chin tuck, 2. CS rot w/ slight flex, 3. B ER w/ scap squeeze Side bilateral Resistance AROM Equipment Used pillow behind head Reps/Minutes 1. 10SH x10, 2. 10 ea, 3. 10 Comments cued CS rotation Other Exercise Name CS ext neutral Equipment Used counter plank position HEP Reps/Minutes X10 Comments Improved self correct DNF neutral CSrotation Manual Therapy Treatment Soft Tissue Mobilization cervical spine Body Location R>L SCM, scalenes, UT, LS, paraspinals, Mobilization Type Rolling,Other Intensity/Depth Moderate Body Position Sitting Comments VC for breathing from diaphragm. Less tightness PT-OP-T Assessment and Plan Start: 12/06/23 08:58 Freq: Status: Active Protocol: Document 12/28/23 08:18 SP (Rec: 12/28/23 09:03 SP [id number]) Physical Therapy Assessment Goals Four Impairment HEP compliance Short Term Goal (STG) Pt will be issued and educated on HEP, including compliance at least 3x/wk in order to maximize progression with PT STG Duration 5 weeks [facility] Goal (LTG) Pt will report compliance with HEP at least 3x/wk in order to maintain progress made during PT and to promote independence at discharge LTG Duration 10 weeks Three Impairment R cervical spine rotation 45 deg [facility] Goal (LTG) Pt will improve R rotation AROM to at least 60 deg in order to demonstrate improved mobility for visual scanning LTG Duration 10 weeks Two Impairment L cervical spine lateral flexion 20 deg and painful District Extension Service Agent Goal (LTG) Pt will improve L lateral flexion AROM to within 5 deg of R lateral flexion AROM without increase in baseline pain to demonstrate improved tissue length LTG Duration 10 weeks One Impairment L cervical spine Rotation 42 deg District Extension Service Agent Goal (LTG) Pt will improve L rotation AROM to at least 60 deg in order to demonstrate improved mobility for visual scanning LTG Duration 10 weeks Assessment Summary Assessment Pt tolerated session well. REportts less tension in R sidde of his neck. IMproved L rotation and L SB /c contract relax support. Cued LS toward wall during DNF and humeral ER with reports of TA facilitiation. Physical Therapy Plan Frequency and Duration Frequency of Treatment 1-2x/wk Duration of treatment (weeks) 10 Plan of Care Start Date 12/06/23 Plan of Care End Date 02/18/24 Therapeutic Interventions Therapeutic Interventions Balance Training,Gait Training ,Home Exercise Program,Joint Mobilizations,Manual Therapy, Neuromuscular Re-education, Orthotic/Prosthetic Management ,Self-Care/Home Management, Sensory Integration,Soft Tissue Mobilization,Taping, Therapeutic Activities, Therapeutic Exercises Other Therapeutic Interventions No modalities due to PMH of cancer Next Visit Focus/Plan Next Note Type Treatment Note Next Visit Plan Condense/review HEP as needed, will bring HOs next tx. cervical spine manual soft tissue, stretching R side, postural re-education elli in standing review standing chin tuck, wall posture and add periscapular activation, contract-relax isometrics of cervical spine to reduce R sided tension. Use water-based lotion for STM no modalities Assess CS AROM rotation
--- NOTE | 2024-01-05 11:29 | PT.OTN ---
Current Diagnoses Squamous cell carcinoma of skin of scalp and neck (01/05/24) Trigeminal neuralgia (01/05/24) Stiffness of unspecified joint, not elsewhere classified (01/05/24) Other lack of coordination (01/05/24) Other symptoms and signs involving the musculoskeletal system (01/05/24) Weakness (01/05/24) Physical Therapy Treatment Note PT-OP-A Visit Information Start: 12/06/23 08:58 Freq: Status: Active Protocol: Document 01/05/24 10:42 SP (Rec: 01/05/24 11:34 SP [id number]) Out-Patient Physical Therapy Visit Information Visit Information Visit Type Treatment Note Visit Start Time 10:45 Visit Stop Time 11:29 Visit Number 7 Number of CRAFT WORKER Visits 2 Evaluation Information Evaluation Date 12/06/23 Precautions Precautions Hx of skin cancer of head/neck , 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 He recently finished proton therapy treatment due to tumor in his neck on 10/08/23. Pt began work up for cancer around February 2023, diagnosed in May- June 2023. He had had squamous skin cancer of R jaw; PMH of same type of skin cancer in R ear 5 years ago. He has had both chemotherapy and proton radiation, 34 sessions total. He states that the tumor is gone but the muscle tightness is still alot , which causes discomfort. He states that he muscles are starting to relax but still feels tight. R eyelid is drooping; states did not prior to treatment. Had not noticed changes in UE strength or pupils. He is currently going to speech therapy. Pt has also done a barium swallow, and has gone to an ENT for further assessment. 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 Pt has been in the ER 3x during previous treatment due to dehydration. He has CT scan on 12/28/23 (3 month follow up with imaging), 01/04/24 follow up with radiologist/oncologist . He has mild numbness along R jaw, R tongue. Voice is very hoarse. Pt has occasionally had headaches, 2/10 pain (over R side of head, then up/over forehead); he gets headaches every day. Pt's sight and hearing is diminished. He had cetuximab for chemo. In May 2023, pt had R knee surgery due to torn quad tendon, which influences balance and gait; unable to straighten leg completely. Prior Treatments and Tests Previous PT for R shoulder in late 2022; pt reports no change, still bothers him since ending PT Current Functional Impairments (Reported) Functional Limitations- ADL's turning head limited and painful, may be affecting chewing and speech Functional Limitations- Other reports no difficulty with sleeping PT-OP-C Subjective Start: 12/06/23 08:58 Freq: Status: Active Protocol: Document 01/05/24 10:42 SP (Rec: 01/05/24 11:34 SP [id number]) OP-PT Subjective Patient Comments Patient Comments Pt reports neck feeling PT-OP-F Manual Assessment Start: 12/06/23 08:58 Freq: Status: Active Protocol: Document 12/06/23 08:59 NM (Rec: 12/06/23 09:47 NM [id number]) Manual Assessments Soft Tissue Assessment Soft Tissue Mobility Assessment Increased restriction and hypertrophy of R SCM, paraspinals, deep neck flexors . Tightness of (R>L) levator scapula, SCM, pec, and upper trapezius. Atrophy of R upper trapezius, scalenes, rotator cuff musculature pec length: 13 cm L pec, 16 cm R pec (measured elbows from behind head to table) Joint Mobility Assessment Joint Mobility Assessment Decreased R shoulder mobility and scapular mobility. Limitations and hypomobility of cervical spine, increased rotation during supine PROM rotation and lateral flexion than seated AROM Other Manual Assessments Other Manual Assessments Cranial nerve testing: tongue deviates toward R side, tongue paresis, difficulty swallowing, decreased sensation along R tongue. Notable drooping of R eyelid, but pupils equally round and reactive to light. PT-OP-G Mobility & Gait Start: 12/06/23 08:58 Freq: Status: Active Protocol: Document 12/06/23 08:59 NM (Rec: 12/06/23 10:53 NM [id number]) OP Gait Assessment Gait Gait Assistance Required: Independent Distance (Feet) 150 Gait Deviations General Gait Pattern Antalgic Comments Gait Comments Decreased time in R stance, unable to fully extend R knee and demos signs of quad weakness on R side PT-OP-H Neuro Start: 12/06/23 08:58 Freq: Status: Active Protocol: Document 12/06/23 08:59 NM (Rec: 12/06/23 09:47 NM [id number]) Sensation Evaluation Comments Summary Comments BUE intact to light touch sensation. Less sensitivity to light touch sensation along R lower face (V2-V3 distribution) and neck (C3-C4) dermatomes Deep Tendon Reflex & Clonus Assessment Deep Tendon Reflex Bilateral Brachioradialis Deep Tendon Reflex 1+ Diminished Bilateral Bicep Deep Tendon Reflex 1+ Diminished PT-OP-J Posture/Palpation/Skin Start: 12/06/23 08:58 Freq: Status: Active Protocol: Document 12/06/23 08:59 NM (Rec: 12/06/23 09:47 NM [id number]) Posture Evaluation Position Standing Head/C-Spine Posture Forward Head Shoulder Posture (L) Rounded,(R) Rounded,(L) Forward,(R) Forward Scapula Posture (L) Elevated,(R) Elevated,(R) Tipped Arm Posture (L) Internally Rotated,(R) Internally Rotated Comments Posture Comments fwd head Palpation Assessment Location neck Palpation Details Increased tone and restrictions of R sided: SCM, scalenes, levator scapula, paraspinals, pec Atrophy noted of R upper trap, scalenes, rotator cuff Trigger point or possible palpable knot of R superior- medial angle near levator scapula distal insertion, tender to palpable and tight Skin Assessment Other Assessments Skin Assessment Comments Redness and appearance of kenney related to radiation therapy along R neck and shoulder. Skin is soap drier tender on R side than L side PT-OP-K Range of Motion Start: 12/06/23 08:58 Freq: Status: Active Protocol: Document 12/06/23 08:59 NM (Rec: 12/06/23 09:47 NM [id number]) Cervical Spine Range of Motion Cervical Spine Active Degrees Flexion 50 Extension 40 Rotation Left 42 Rotation Right 45 Lateral Flexion Left 20 Lateral Flexion Right 25 Comments discomfort w/ ext; tightness with L LF, R rot Decreased thoracic rotation, ext Shoulder Goniometric Range of Motion Shoulder Left Flexion 160 Abduction 160 Right Flexion 135 Abduction 110 Comments pain at end range PT-OP-L Special Tests Start: 12/06/23 08:58 Freq: Status: Active Protocol: Document 12/13/23 07:30 NM (Rec: 12/13/23 12:48 NM [id number]) Special Tests Cervical Spine Special Tests Vertebral Artery Test Results - PT-OP-M Strength Start: 12/06/23 08:58 Freq: Status: Active Protocol: Document 12/06/23 08:59 NM (Rec: 12/06/23 09:47 NM [id number]) Cervical Spine Strength Cervical Spine Manual Muscle Testing Flexion (C1-2) 4 Good Extension 4 Good Rotation Left 3+ Fair+ Rotation Right 3+ Fair+ Lateral Flexion Left (C3) 3+ Fair+ Lateral Flexion Right (C3) 3+ Fair+ Comments mild pain with resisted rotation and lateral flexion PT-OP-Q Treatments Start: 12/06/23 08:58 Freq: Status: Active Protocol: Document 01/05/24 10:42 SP (Rec: 01/05/24 11:34 SP [id number]) Therapeutic Exercises Sidelying Exercises open book Sidelying Exercise Name added to HEP Side bilateral Reps/Minutes x8 reps each side /c Head turn Comments cues for set up, scapular ROM, TS rotation CS AROM Sidelying Exercise Name L lateral flexion Resistance AROM Equipment Used R SL Reps/Minutes 2 SH x10 Comments no pain Sitting Exercises CS retraction Sitting Exercise Name retraction DNF netral added to HEP Resistance TB #2 teal Reps/Minutes 5 Sh x10 Comments CUed posture Other Exercises wall posture Other Exercise Name B ER w/ scap squeeze Side bilateral Resistance AROM Reps/Minutes 10SH x10 Comments Cued no LB arch, head toward wall CS rotation Other Exercise Name CS ext neutral Equipment Used counter plank position HEP Reps/Minutes X10 Comments Improved self correct DNF neutral CSrotation Manual Therapy Treatment Consent Patient gave verbal consent for manual Yes treatment Soft Tissue Mobilization cervical spine Body Location R>L SCM, scalenes, UT, LS, paraspinals, diagastric, Hypoglossal Mobilization Type Rolling,Other Intensity/Depth Moderate Body Position Sitting Comments VC for breathing from diaphragm. Less tightness tension R SCM, scalene and improved mandible mobiltiy. PT-OP-T Assessment and Plan Start: 12/06/23 08:58 Freq: Status: Active Protocol: Document 01/05/24 10:42 SP (Rec: 01/05/24 11:34 SP [id number]) Physical Therapy Assessment Goals Four Impairment HEP compliance Short Term Goal (STG) Pt will be issued and educated on HEP, including compliance at least 3x/wk in order to maximize progression with PT STG Duration 5 weeks Oven Equipment Repairer Goal (LTG) Pt will report compliance with HEP at least 3x/wk in order to maintain progress made during PT and to promote independence at discharge LTG Duration 10 weeks Three Impairment R cervical spine rotation 45 deg Oven Equipment Repairer Goal (LTG) Pt will improve R rotation AROM to at least 60 deg in order to demonstrate improved mobility for visual scanning LTG Duration 10 weeks Two Impairment L cervical spine lateral flexion 20 deg and painful [facility] Goal (LTG) Pt will improve L lateral flexion AROM to within 5 deg of R lateral flexion AROM without increase in baseline pain to demonstrate improved tissue length LTG Duration 10 weeks One Impairment L cervical spine Rotation 42 deg Oven Equipment Repairer Goal (LTG) Pt will improve L rotation AROM to at least 60 deg in order to demonstrate improved mobility for visual scanning LTG Duration 10 weeks Assessment Summary Assessment Pt tolerated session well. Improved soft tissue mobility, able move jaw and tongue better. Cues for postural alignment. DC breath HEP. Cues for DNF issued HO for resisted CS retraction with improved postural alignment carryover. DIscussed speak with speech therapist and this ex for awareness carrover neck strengthening. Physical Therapy Plan Frequency and Duration Frequency of Treatment 1-2x/wk Duration of treatment (weeks) 10 Plan of Care Start Date 12/06/23 Plan of Care End Date 02/18/24 Therapeutic Interventions Therapeutic Interventions Balance Training,Gait Training ,Home Exercise Program,Joint Mobilizations,Manual Therapy, Neuromuscular Re-education, Orthotic/Prosthetic Management ,Self-Care/Home Management, Sensory Integration,Soft Tissue Mobilization,Taping, Therapeutic Activities, Therapeutic Exercises Other Therapeutic Interventions No modalities due to PMH of cancer Next Visit Focus/Plan Next Note Type Treatment Note Next Visit Plan Ask response to open book, resisted CS retraction, and STMs submandible. POC:cervical spine manual soft tissue, stretching R side, postural re-education elli in standing review standing chin tuck, wall posture and add periscapular activation, contract-relax isometrics of cervical spine to reduce R sided tension. Use water-based lotion for STM no modalities Assess CS AROM rotation
--- NOTE | 2024-01-18 11:30 | PT.OTN ---
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 He recently finished proton therapy treatment due to tumor in his neck on 10/08/23. Pt began work up for cancer around February 2023, diagnosed in May- June 2023. He had had squamous skin cancer of R jaw; PMH of same type of skin cancer in R ear 5 years ago. He has had both chemotherapy and proton radiation, 34 sessions total. He states that the tumor is gone but the muscle tightness is still alot , which causes discomfort. He states that he muscles are starting to relax but still feels tight. R eyelid is drooping; states did not prior to treatment. Had not noticed changes in UE strength or pupils. He is currently going to speech therapy. Pt has also done a barium swallow, and has gone to an ENT for further assessment. 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 Pt has been in the ER 3x during previous treatment due to dehydration. He has CT scan on 12/28/23 (3 month follow up with imaging), 01/04/24 follow up with radiologist/oncologist . He has mild numbness along R jaw, R tongue. Voice is very hoarse. Pt has occasionally had headaches, 2/10 pain (over R side of head, then up/over forehead); he gets headaches every day. Pt's sight and hearing is diminished. He had cetuximab for chemo. In May 2023, pt had R knee surgery due to torn quad tendon, which influences balance and gait; unable to straighten leg completely. Prior Treatments and Tests Previous PT for R shoulder in late 2022; pt reports no change, still bothers him since ending PT Current Functional Impairments (Reported) Functional Limitations- ADL's turning head limited and painful, may be affecting chewing and speech Functional Limitations- Other reports no difficulty with sleeping PT-OP-C Subjective Start: 12/06/23 08:58 Freq: Status: Active Protocol: Document 01/18/24 10:51 SP (Rec: 01/18/24 11:33 SP [id number]) OP-PT Subjective Patient Comments Patient Comments Pt reported his R mid back and lower ribcage is been hurting like his cartilage of his ribs but hasn't had a fall or anyting can think of. Breathing deep end range little discomfort. Sit to stands sometimes hurts the area. Pt stated will call Dr Mckenzie and ask if something can help figure out. PT-OP-F Manual Assessment Start: 12/06/23 08:58 Freq: Status: Active Protocol: Document 12/06/23 08:59 NM (Rec: 12/06/23 09:47 NM [id number]) Manual Assessments Soft Tissue Assessment Soft Tissue Mobility Assessment Increased restriction and hypertrophy of R SCM, paraspinals, deep neck flexors . Tightness of (R>L) levator scapula, SCM, pec, and upper trapezius. Atrophy of R upper trapezius, scalenes, rotator cuff musculature pec length: 13 cm L pec, 16 cm R pec (measured elbows from behind head to table) Joint Mobility Assessment Joint Mobility Assessment Decreased R shoulder mobility and scapular mobility. Limitations and hypomobility of cervical spine, increased rotation during supine PROM rotation and lateral flexion than seated AROM Other Manual Assessments Other Manual Assessments Cranial nerve testing: tongue deviates toward R side, tongue paresis, difficulty swallowing, decreased sensation along R tongue. Notable drooping of R eyelid, but pupils equally round and reactive to light. PT-OP-G Mobility & Gait Start: 12/06/23 08:58 Freq: Status: Active Protocol: Document 12/06/23 08:59 NM (Rec: 12/06/23 10:53 NM [id number]) OP Gait Assessment Gait Gait Assistance Required: Independent Distance (Feet) 150 Gait Deviations General Gait Pattern Antalgic Comments Gait Comments Decreased time in R stance, unable to fully extend R knee and demos signs of quad weakness on R side PT-OP-H Neuro Start: 12/06/23 08:58 Freq: Status: Active Protocol: Document 12/06/23 08:59 NM (Rec: 12/06/23 09:47 NM [id number]) Sensation Evaluation Comments Summary Comments BUE intact to light touch sensation. Less sensitivity to light touch sensation along R lower face (V2-V3 distribution) and neck (C3-C4) dermatomes Deep Tendon Reflex & Clonus Assessment Deep Tendon Reflex Bilateral Brachioradialis Deep Tendon Reflex 1+ Diminished Bilateral Bicep Deep Tendon Reflex 1+ Diminished PT-OP-J Posture/Palpation/Skin Start: 12/06/23 08:58 Freq: Status: Active Protocol: Document 12/06/23 08:59 NM (Rec: 12/06/23 09:47 NM [id number]) Posture Evaluation Position Standing Head/C-Spine Posture Forward Head Shoulder Posture (L) Rounded,(R) Rounded,(L) Forward,(R) Forward Scapula Posture (L) Elevated,(R) Elevated,(R) Tipped Arm Posture (L) Internally Rotated,(R) Internally Rotated Comments Posture Comments fwd head Palpation Assessment Location neck Palpation Details Increased tone and restrictions of R sided: SCM, scalenes, levator scapula, paraspinals, pec Atrophy noted of R upper trap, scalenes, rotator cuff Trigger point or possible palpable knot of R superior- medial angle near levator scapula distal insertion, tender to palpable and tight Skin Assessment Other Assessments Skin Assessment Comments Redness and appearance of kenney related to radiation therapy along R neck and shoulder. 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 PT-OP-K Range of Motion Start: 12/06/23 08:58 Freq: Status: Active Protocol: Document 12/06/23 08:59 NM (Rec: 12/06/23 09:47 NM [id number]) Cervical Spine Range of Motion Cervical Spine Active Degrees Flexion 50 Extension 40 Rotation Left 42 Rotation Right 45 Lateral Flexion Left 20 Lateral Flexion Right 25 Comments discomfort w/ ext; tightness with L LF, R rot Decreased thoracic rotation, ext Shoulder Goniometric Range of Motion Shoulder Left Flexion 160 Abduction 160 Right Flexion 135 Abduction 110 Comments pain at end range PT-OP-L Special Tests Start: 12/06/23 08:58 Freq: Status: Active Protocol: Document 12/13/23 07:30 NM (Rec: 12/13/23 12:48 NM [id number]) Special Tests Cervical Spine Special Tests Vertebral Artery Test Results - PT-OP-M Strength Start: 12/06/23 08:58 Freq: Status: Active Protocol: Document 12/06/23 08:59 NM (Rec: 12/06/23 09:47 NM [id number]) Cervical Spine Strength Cervical Spine Manual Muscle Testing Flexion (C1-2) 4 Good Extension 4 Good Rotation Left 3+ Fair+ Rotation Right 3+ Fair+ Lateral Flexion Left (C3) 3+ Fair+ Lateral Flexion Right (C3) 3+ Fair+ Comments mild pain with resisted rotation and lateral flexion PT-OP-Q Treatments Start: 12/06/23 08:58 Freq: Status: Active Protocol: Document 01/18/24 10:51 SP (Rec: 01/18/24 11:33 SP [id number]) Therapeutic Exercises Sidelying Exercises open book Side bilateral Reps/Minutes x8 reps each side /c Head turn . cued breath end range rib mobility Comments cues for set up, scapular ROM, TS rotation pnfree range Sitting Exercises TS extension Sitting Exercise Name trialed in PT post manual- no pain reported Resistance AROM Equipment Used arms across chest Reps/Minutes x5 reps Comments sitting front chair, tall posture, gentle AROM TS chest lift & ext- pnfree TS rotation Sitting Exercise Name trialed in PT post manual Side bilateral Resistance AROM Equipment Used arms across chest Reps/Minutes x10 reps Comments sitting front chair, genle small range noted slight R rib T 10 area discomf cervical spine stretching Sitting Exercise Name 1. SCM, 2. ant/mid scalene, 3. UT, 4. post scalene Side right Reps/Minutes 30 ea Comments Verbal cues head directioning Other Exercises self soft tissue mobilization Other Exercise Name SCM Side right Equipment Used L assist R Reps/Minutes 1 min Comments edu to use small amount of aquaphor or lotion to lubricate, keep gentle Manual Therapy Treatment Consent Patient gave verbal consent for manual Yes treatment Soft Tissue Mobilization R scap/TS Body Location R pec, rhomboid, intercostal T6-10 Comments Stms and MWM breath cervical spine Body Location R UT, LS Mobilization Type Rolling,Other Intensity/Depth Moderate Body Position L SL & sitting Comments VC for breathing from diaphragm. Less tightness tension R SCM, scalene and improved L SB Joint Mobilizations ribs Direction inf /c exhale, release inhale Body Position L SL Comments rib recoil assist: /c deep breath scapular mobilization Joint right scapula Direction into dep and adduction Grade II Body Position L SL Reps/Duration 10 PT-OP-T Assessment and Plan Start: 12/06/23 08:58 Freq: Status: Active Protocol: Document 01/18/24 10:51 SP (Rec: 01/18/24 11:33 SP [id number]) Physical Therapy Assessment Goals Four Impairment HEP compliance Short Term Goal (STG) Pt will be issued and educated on HEP, including compliance at least 3x/wk in order to maximize progression with PT STG Duration 5 weeks Long-Term Goal (LTG) Pt will report compliance with HEP at least 3x/wk in order to maintain progress made during PT and to promote independence at discharge LTG Duration 10 weeks Three Impairment R cervical spine rotation 45 deg Long-Term Goal (LTG) Pt will improve R rotation AROM to at least 60 deg in order to demonstrate improved mobility for visual scanning LTG Duration 10 weeks Two Impairment L cervical spine lateral flexion 20 deg and painful Marketing Effectiveness Manager Goal (LTG) Pt will improve L lateral flexion AROM to within 5 deg of R lateral flexion AROM without increase in baseline pain to demonstrate improved tissue length LTG Duration 10 weeks One Impairment L cervical spine Rotation 42 deg Marketing Effectiveness Manager Goal (LTG) Pt will improve L rotation AROM to at least 60 deg in order to demonstrate improved mobility for visual scanning LTG Duration 10 weeks Assessment Summary Assessment Pt tolerated tx well. Improved soft tissure mobility with improved cervical retraction and rotation L ROM. Better understanding of continue self STMs and incorporating stretching and MWM SCM head turns for carryover home. Trialed thoracic rotation with breath for ribcage mobility and carryover open book ther ex review with minimal improvement in pain L lateral ribcage approx T 10. MARKETING COMMUNICATIONS SPECIALIST instructed to call Dr Mckenzie's office for additional assessment and support. Physical Therapy Plan Frequency and Duration Frequency of Treatment 1-2x/wk Duration of treatment (weeks) 10 Plan of Care Start Date 12/06/23 Plan of Care End Date 02/18/24 Therapeutic Interventions Therapeutic Interventions Balance Training,Gait Training ,Home Exercise Program,Joint Mobilizations,Manual Therapy, Neuromuscular Re-education, Orthotic/Prosthetic Management ,Self-Care/Home Management, Sensory Integration,Soft Tissue Mobilization,Taping, Therapeutic Activities, Therapeutic Exercises Other Therapeutic Interventions No modalities due to PMH of cancer Other Referrals/Consults Referrals/Consults Recommended 01/18/24: discussed call Dr Mckenzie's office about R lateral ribcage discomfort/pain having approx T10 region. Next Visit Focus/Plan Next Note Type Progress Note Next Visit Plan 9th visit PN next tx. Ask how scapular/thoracic mobility after last tx. APpt with Dr Mckenzie for Lateral R ribage needed. POC: cervical spine manual soft tissue, stretching R side , postural re-education elli in standing review standing chin tuck, wall posture and add periscapular activation, contract-relax isometrics of cervical spine to reduce R sided tension. Use water-based lotion for STM no modalities Assess CS AROM rotation
--- NOTE | 2024-01-25 16:00 | PT.OTN ---
Current Diagnoses Squamous cell carcinoma of skin of scalp and neck (01/25/24) Trigeminal neuralgia (01/25/24) Stiffness of unspecified joint, not elsewhere classified (01/25/24) Other lack of coordination (01/25/24) Other symptoms and signs involving the musculoskeletal system (01/25/24) Weakness (01/25/24) Physical Therapy Treatment Note PT-OP-A Visit Information Start: 12/06/23 08:58 Freq: Status: Active Protocol: Document 01/25/24 08:06 NM (Rec: 01/25/24 08:07 NM [id number]) Out-Patient Physical Therapy Visit Information Visit Information Visit Type Progress Note Visit Start Time 09:00 Visit Stop Time 09:40 Visit Number 9 Evaluation Information Evaluation Date 12/06/23 Precautions Precautions Hx of skin cancer of head/neck , 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 He recently finished proton therapy treatment due to tumor in his neck on 10/08/23. Pt began work up for cancer around February 2023, diagnosed in May- June 2023. He had had squamous skin cancer of R jaw; PMH of same type of skin cancer in R ear 5 years ago. He has had both chemotherapy and proton radiation, 34 sessions total. He states that the tumor is gone but the muscle tightness is still alot , which causes discomfort. He states that he muscles are starting to relax but still feels tight. R eyelid is drooping; states did not prior to treatment. Had not noticed changes in UE strength or pupils. He is currently going to speech therapy. Pt has also done a barium swallow, and has gone to an ENT for further assessment. 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 Pt has been in the ER 3x during previous treatment due to dehydration. He has CT scan on 12/28/23 (3 month follow up with imaging), 01/04/24 follow up with radiologist/oncologist . He has mild numbness along R jaw, R tongue. Voice is very hoarse. Pt has occasionally had headaches, 2/10 pain (over R side of head, then up/over forehead); he gets headaches every day. Pt's sight and hearing is diminished. He had cetuximab for chemo. In May 2023, pt had R knee surgery due to torn quad tendon, which influences balance and gait; unable to straighten leg completely. Prior Treatments and Tests Previous PT for R shoulder in late 2022; pt reports no change, still bothers him since ending PT Current Functional Impairments (Reported) Functional Limitations- ADL's turning head limited and painful, may be affecting chewing and speech Functional Limitations- Other reports no difficulty with sleeping PT-OP-C Subjective Start: 12/06/23 08:58 Freq: Status: Active Protocol: Document 01/25/24 08:06 NM (Rec: 01/25/24 08:07 NM [id number]) OP-PT Subjective Patient Comments Patient Comments Pt reports that it feels like neck is getting better, baby steps. States muscle feels like a little less tight, reports skin is getting better , can look further. He reports that he is still concerned with speech and swallowing. He went to doctor for his back/ ribs, reports getting better. PT-OP-F Manual Assessment Start: 12/06/23 08:58 Freq: Status: Active Protocol: Document 12/06/23 08:59 NM (Rec: 12/06/23 09:47 NM [id number]) Manual Assessments Soft Tissue Assessment Soft Tissue Mobility Assessment Increased restriction and hypertrophy of R SCM, paraspinals, deep neck flexors . Tightness of (R>L) levator scapula, SCM, pec, and upper trapezius. Atrophy of R upper trapezius, scalenes, rotator cuff musculature pec length: 13 cm L pec, 16 cm R pec (measured elbows from behind head to table) Joint Mobility Assessment Joint Mobility Assessment Decreased R shoulder mobility and scapular mobility. Limitations and hypomobility of cervical spine, increased rotation during supine PROM rotation and lateral flexion than seated AROM Other Manual Assessments Other Manual Assessments Cranial nerve testing: tongue deviates toward R side, tongue paresis, difficulty swallowing, decreased sensation along R tongue. Notable drooping of R eyelid, but pupils equally round and reactive to light. PT-OP-G Mobility & Gait Start: 12/06/23 08:58 Freq: Status: Active Protocol: Document 12/06/23 08:59 NM (Rec: 12/06/23 10:53 NM [id number]) OP Gait Assessment Gait Gait Assistance Required: Independent Distance (Feet) 150 Gait Deviations General Gait Pattern Antalgic Comments Gait Comments Decreased time in R stance, unable to fully extend R knee and demos signs of quad weakness on R side PT-OP-H Neuro Start: 12/06/23 08:58 Freq: Status: Active Protocol: Document 12/06/23 08:59 NM (Rec: 12/06/23 09:47 NM [id number]) Sensation Evaluation Comments Summary Comments BUE intact to light touch sensation. Less sensitivity to light touch sensation along R lower face (V2-V3 distribution) and neck (C3-C4) dermatomes Deep Tendon Reflex & Clonus Assessment Deep Tendon Reflex Bilateral Brachioradialis Deep Tendon Reflex 1+ Diminished Bilateral Bicep Deep Tendon Reflex 1+ Diminished PT-OP-J Posture/Palpation/Skin Start: 12/06/23 08:58 Freq: Status: Active Protocol: Document 12/06/23 08:59 NM (Rec: 12/06/23 09:47 NM [id number]) Posture Evaluation Position Standing Head/C-Spine Posture Forward Head Shoulder Posture (L) Rounded,(R) Rounded,(L) Forward,(R) Forward Scapula Posture (L) Elevated,(R) Elevated,(R) Tipped Arm Posture (L) Internally Rotated,(R) Internally Rotated Comments Posture Comments fwd head Palpation Assessment Location neck Palpation Details Increased tone and restrictions of R sided: SCM, scalenes, levator scapula, paraspinals, pec Atrophy noted of R upper trap, scalenes, rotator cuff Trigger point or possible palpable knot of R superior- medial angle near levator scapula distal insertion, tender to palpable and tight Skin Assessment Other Assessments Skin Assessment Comments Redness and appearance of kenney related to radiation therapy along R neck and shoulder. 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 PT-OP-K Range of Motion Start: 12/06/23 08:58 Freq: Status: Active Protocol: Document 01/25/24 08:06 NM (Rec: 01/25/24 08:07 NM [id number]) Cervical Spine Range of Motion Cervical Spine Active Degrees Flexion 50 Extension 40 Rotation Left 42 Rotation Right 45 Lateral Flexion Left 20 Lateral Flexion Right 25 Comments discomfort w/ ext; tightness with L LF, R rot Decreased thoracic rotation, ext 01/25/24: 55 deg flex, 40 deg ext, 20 deg LF L, 30 deg L, 60 deg R, 65 deg L, PT-OP-L Special Tests Start: 12/06/23 08:58 Freq: Status: Active Protocol: Document 12/13/23 07:30 NM (Rec: 12/13/23 12:48 NM [id number]) Special Tests Cervical Spine Special Tests Vertebral Artery Test Results - PT-OP-M Strength Start: 12/06/23 08:58 Freq: Status: Active Protocol: Document 12/06/23 08:59 NM (Rec: 12/06/23 09:47 NM [id number]) Cervical Spine Strength Cervical Spine Manual Muscle Testing Flexion (C1-2) 4 Good Extension 4 Good Rotation Left 3+ Fair+ Rotation Right 3+ Fair+ Lateral Flexion Left (C3) 3+ Fair+ Lateral Flexion Right (C3) 3+ Fair+ Comments mild pain with resisted rotation and lateral flexion PT-OP-Q Treatments Start: 12/06/23 08:58 Freq: Status: Active Protocol: Document 01/25/24 08:06 NM (Rec: 01/25/24 08:07 NM [id number]) Therapeutic Exercises Sitting Exercises CS AROM Sitting Exercise Name 1. lateral flex L AROM, 2. lateral flex level 1 band active (HEP) Side left Reps/Minutes 1. 10x2, 2. 15 w/ PT hold, then 10 with pt hold Comments post manual tx; AROM tension Standing Exercises modified TS mobility Standing Exercise Name 1. thread needle, 2. chicken wing fot CT junction mob Side bilateral Reps/Minutes 10x5 ea Comments HEP Manual Therapy Treatment Consent Patient gave verbal consent for manual Yes treatment Soft Tissue Mobilization cervical spine Body Location R UT, LS, SCM, scalenes, subclavius Mobilization Type Rolling,Other Intensity/Depth Moderate Body Position Supine Comments VC for breathing from diaphragm. Less tightness tension R SCM, scalene and improved L SB 20 deg pre manual L LF, 30 deg post manual LF Manual Techniques contract-relax Type R lateral flex voloydmyr > relax and move into L lateral flexion Body Location cervical spine (SCM) Body Position Hooklying Reps/Duration 15x5 Comments PT providing manual resistance . Following soft tissue mobilization cervical spine stretch Type passive stretch into L lateral flexion and rotation Reps/Duration 2 min total time Comments Monitored for pain PT-OP-T Assessment and Plan Start: 12/06/23 08:58 Freq: Status: Active Protocol: Document 01/25/24 08:06 NM (Rec: 01/25/24 08:07 NM [id number]) Physical Therapy Assessment Goals Four Impairment HEP compliance Short Term Goal (STG) Pt will be issued and educated on HEP, including compliance at least 3x/wk in order to maximize progression with PT 01/25/24: pt compliant with HEP until back pain started 1 week ago, has not performed since STG Duration 5 weeks Reconciliation Clerk Goal (LTG) Pt will report compliance with HEP at least 3x/wk in order to maintain progress made during PT and to promote independence at discharge LTG Duration 8 weeks 03/24/24- GOAL UPDATED Three Impairment R cervical spine rotation 45 deg Reconciliation Clerk Goal (LTG) Pt will improve R rotation AROM to at least 60 deg in order to demonstrate improved mobility for visual scanning 01/25/24: 60 deg R rot LTG Duration 10 weeks MET 01/24/24 Two Impairment L cervical spine lateral flexion 20 deg and painful Reconciliation Clerk Goal (LTG) Pt will improve L lateral flexion AROM to within 5 deg of R lateral flexion AROM without increase in baseline pain to demonstrate improved tissue length 01/25/24: 20 deg L lateral flexion pre-manual (30 post manual) LTG Duration 10 weeks PROGRESSING; UPDATED 8 weeks 03/24/24 One Impairment L cervical spine Rotation 42 deg Mcc Goal (LTG) Pt will improve L rotation AROM to at least 60 deg in order to demonstrate improved mobility for visual scanning 01/25/24: 65 deg L rot LTG Duration 10 weeks MET 01/25/24 Progress Towards Goals Progress Towards Goals Progressing Toward Goals,Goals Met Assessment Summary Assessment Pt tolerated session well, no neck or rib pain. Emphasis on cervical spine AROM. Has 30 deg of L lateral flexion at end of session. Best response to contract-relax with sustained stretching. Pt able to progress with resisted lateral flexion and cervicothoracic mobility without pain. Continues to have restrictions at R SCM. He would continue to benefit from skilled PT for progressive flexibility in order to improve cervical spine ROM. Physical Therapy Plan Frequency and Duration Frequency of Treatment 1-2x/wk Duration of treatment (weeks) 8 Plan of Care Start Date 01/25/24 Plan of Care End Date 03/24/24 Therapeutic Interventions Therapeutic Interventions Balance Training,Gait Training ,Home Exercise Program,Joint Mobilizations,Manual Therapy, Neuromuscular Re-education, Orthotic/Prosthetic Management ,Self-Care/Home Management, Sensory Integration,Soft Tissue Mobilization,Taping, Therapeutic Activities, Therapeutic Exercises Other Therapeutic Interventions No modalities due to PMH of cancer Other Referrals/Consults Referrals/Consults Recommended 01/18/24: discussed call Dr Mckenzie's office about R lateral ribcage discomfort/pain having approx T10 region. Next Visit Focus/Plan Next Note Type Treatment Note Next Visit Plan Cervical lateral flex, rot, and retract w/ band. cont with thoracic mobility, stretching , active ROM and maintaining mobility. Functional rotation and lateral flexion, add gentle UE mobility with head motions POC: cervical spine manual soft tissue, stretching R side , postural re-education elli in standing review standing chin tuck, wall posture and add periscapular activation, contract-relax isometrics of cervical spine to reduce R sided tension. Use water-based lotion for STM no modalities Assess CS AROM rotation
--- NOTE | 2024-01-25 16:02 | PT.OPPOC ---
Physical, Occupational & Speech Therapy At [facility] Current Diagnoses Squamous cell carcinoma of skin of scalp and neck (01/25/24) Trigeminal neuralgia (01/25/24) Stiffness of unspecified joint, not elsewhere classified (01/25/24) Other lack of coordination (01/25/24) Other symptoms and signs involving the musculoskeletal system (01/25/24) Weakness (01/25/24) Visit Care Team Role Provider Type Gurpreet Mckenzie DO Attending Provider Physician Family Provider Primary Care Provider Referring Provider Specialty: Family Practice Address: [address] [place] [address], [facility] Email: Plan Of Care PT-OP-B Current Condition Start: 12/06/23 08:58 Freq: Status: Active Protocol: Document 12/06/23 08:59 NM (Rec: 12/06/23 09:47 NM [id number]) Current Condition History of Current Condition Onset Date September 2023 Current Complaints pain, poor mobility History of Current Condition Pt presents with R sided neck pain following cancer treatment. He recently finished proton therapy treatment due to tumor in his neck on 10/08/23. Pt began work up for cancer around February 2023, diagnosed in May- June 2023. He had had squamous skin cancer of R jaw; PMH of same type of skin cancer in R ear 5 years ago. He has had both chemotherapy and proton radiation, 34 sessions total. He states that the tumor is gone but the muscle tightness is still alot , which causes discomfort. He states that he muscles are starting to relax but still feels tight. R eyelid is drooping; states did not prior to treatment. Had not noticed changes in UE strength or pupils. He is currently going to speech therapy. Pt has also done a barium swallow, and has gone to an ENT for further assessment. 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 Pt has been in the ER 3x during previous treatment due to dehydration. He has CT scan on 12/28/23 (3 month follow up with imaging), 01/04/24 follow up with radiologist/oncologist . He has mild numbness along R jaw, R tongue. Voice is very hoarse. Pt has occasionally had headaches, 2/10 pain (over R side of head, then up/over forehead); he gets headaches every day. Pt's sight and hearing is diminished. He had cetuximab for chemo. In May 2023, pt had R knee surgery due to torn quad tendon, which influences balance and gait; unable to straighten leg completely. Prior Treatments and Tests Previous PT for R shoulder in late 2022; pt reports no change, still bothers him since ending PT Current Functional Impairments (Reported) Functional Limitations- ADL's turning head limited and painful, may be affecting chewing and speech Functional Limitations- Other reports no difficulty with sleeping PT-OP-T Assessment and Plan Start: 12/06/23 08:58 Freq: Status: Active Protocol: Document 01/25/24 08:06 NM (Rec: 01/25/24 08:07 NM [id number]) Physical Therapy Assessment Goals Four Impairment HEP compliance Short Term Goal (STG) Pt will be issued and educated on HEP, including compliance at least 3x/wk in order to maximize progression with PT 01/25/24: pt compliant with HEP until back pain started 1 week ago, has not performed since STG Duration 5 weeks At Home Independent Call Center Agent Goal (LTG) Pt will report compliance with HEP at least 3x/wk in order to maintain progress made during PT and to promote independence at discharge LTG Duration 8 weeks 03/24/24- GOAL UPDATED Three Impairment R cervical spine rotation 45 deg At Home Independent Call Center Agent Goal (LTG) Pt will improve R rotation AROM to at least 60 deg in order to demonstrate improved mobility for visual scanning 01/25/24: 60 deg R rot LTG Duration 10 weeks MET 01/24/24 Two Impairment L cervical spine lateral flexion 20 deg and painful Fpc Goal (LTG) Pt will improve L lateral flexion AROM to within 5 deg of R lateral flexion AROM without increase in baseline pain to demonstrate improved tissue length 01/25/24: 20 deg L lateral flexion pre-manual (30 post manual) LTG Duration 10 weeks PROGRESSING; UPDATED 8 weeks 03/24/24 One Impairment L cervical spine Rotation 42 deg At Home Independent Call Center Agent Goal (LTG) Pt will improve L rotation AROM to at least 60 deg in order to demonstrate improved mobility for visual scanning 01/25/24: 65 deg L rot LTG Duration 10 weeks MET 01/25/24 Progress Towards Goals Progress Towards Goals Progressing Toward Goals,Goals Met Assessment Summary Assessment Pt has been seen x8 visits since initial evaluation in November 2023 for neck pain related to previous cancer radiation treatment. Progressing toward goals, meeting several. Pt has improvements in cervical spine AROM but continues to be limited globally. His L lateral flexion is most limited motion, affecting pt sleep. Pt compliant with HEP but has had recent set back due to back/rib pain. NDI improved from 8/50 to 5/50 ( lower score is less impairment ). Due to limited sessions from scheduling, planning to extend plan as pt making progress toward goals. He would continue to benefit from skilled PT for progressive flexibility in order to improve cervical spine ROM. Physical Therapy Plan Frequency and Duration Frequency of Treatment 1-2x/wk Duration of treatment (weeks) 8 Plan of Care Start Date 01/25/24 Plan of Care End Date 03/24/24 Therapeutic Interventions Therapeutic Interventions Balance Training,Gait Training ,Home Exercise Program,Joint Mobilizations,Manual Therapy, Neuromuscular Re-education, Orthotic/Prosthetic Management ,Self-Care/Home Management, Sensory Integration,Soft Tissue Mobilization,Taping, Therapeutic Activities, Therapeutic Exercises Other Therapeutic Interventions No modalities due to PMH of cancer Other Referrals/Consults Referrals/Consults Recommended 01/18/24: discussed call Dr Mckenzie's office about R lateral ribcage discomfort/pain having approx T10 region. Next Visit Focus/Plan Next Note Type Treatment Note Next Visit Plan Cervical lateral flex, rot, and retract w/ band. cont with thoracic mobility, stretching , active ROM and maintaining mobility. Functional rotation and lateral flexion, add gentle UE mobility with head motions POC: cervical spine manual soft tissue, stretching R side , postural re-education elli in standing review standing chin tuck, wall posture and add periscapular activation, contract-relax isometrics of cervical spine to reduce R sided tension. Use water-based lotion for STM no modalities Assess CS AROM rotation Plan of Care Dates Plan of Care Start Date 01/25/24 Plan of Care End Date 03/24/24 Electronically Signed by: Kayla Dawn, PT 01/26/24 0846 If you are in agreement with this Plan of Care, please return a signed and dated copy. I have reviewed this Plan of Care and certify that the skilled therapy services above are required to meet the patient?s needs. Physician Signature Date Printed Name and Credentials Clinical Instructor Signature Printed Name and Credentials
--- NOTE | 2024-02-01 09:45 | PT.OTN ---
Current Diagnoses Squamous cell carcinoma of skin of scalp and neck (02/01/24) Trigeminal neuralgia (02/01/24) Stiffness of unspecified joint, not elsewhere classified (02/01/24) Other lack of coordination (02/01/24) Other symptoms and signs involving the musculoskeletal system (02/01/24) Weakness (02/01/24) Physical Therapy Treatment Note PT-OP-A Visit Information Start: 12/06/23 08:58 Freq: Status: Active Protocol: Document 02/01/24 09:07 SP (Rec: 02/01/24 09:49 SP [id number]) Out-Patient Physical Therapy Visit Information Visit Information Visit Type Treatment Note Visit Start Time 09:07 Visit Stop Time 09:45 Visit Number 10 (05/08 with PN) Number of HOSPICE CONSULTANT Visits 1 Evaluation Information Evaluation Date 12/06/23 Precautions Precautions Hx of skin cancer of head/neck , 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 He recently finished proton therapy treatment due to tumor in his neck on 10/08/23. Pt began work up for cancer around February 2023, diagnosed in May- June 2023. He had had squamous skin cancer of R jaw; PMH of same type of skin cancer in R ear 5 years ago. He has had both chemotherapy and proton radiation, 34 sessions total. He states that the tumor is gone but the muscle tightness is still alot , which causes discomfort. He states that he muscles are starting to relax but still feels tight. R eyelid is drooping; states did not prior to treatment. Had not noticed changes in UE strength or pupils. He is currently going to speech therapy. Pt has also done a barium swallow, and has gone to an ENT for further assessment. 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 Pt has been in the ER 3x during previous treatment due to dehydration. He has CT scan on 12/28/23 (3 month follow up with imaging), 01/04/24 follow up with radiologist/oncologist . He has mild numbness along R jaw, R tongue. Voice is very hoarse. Pt has occasionally had headaches, 2/10 pain (over R side of head, then up/over forehead); he gets headaches every day. Pt's sight and hearing is diminished. He had cetuximab for chemo. In May 2023, pt had R knee surgery due to torn quad tendon, which influences balance and gait; unable to straighten leg completely. Prior Treatments and Tests Previous PT for R shoulder in late 2022; pt reports no change, still bothers him since ending PT Current Functional Impairments (Reported) Functional Limitations- ADL's turning head limited and painful, may be affecting chewing and speech Functional Limitations- Other reports no difficulty with sleeping PT-OP-C Subjective Start: 12/06/23 08:58 Freq: Status: Active Protocol: Document 02/01/24 09:07 SP (Rec: 02/01/24 09:49 SP [id number]) OP-PT Subjective Patient Comments Patient Comments Pt reports feeling pretty good , little tightness though R anterior neck muscle. Saw Dr Mckenzie about 1 week ago and did some lower thoracic spine mobility and feeling more mobility. PT-OP-F Manual Assessment Start: 12/06/23 08:58 Freq: Status: Active Protocol: Document 12/06/23 08:59 NM (Rec: 12/06/23 09:47 NM [id number]) Manual Assessments Soft Tissue Assessment Soft Tissue Mobility Assessment Increased restriction and hypertrophy of R SCM, paraspinals, deep neck flexors . Tightness of (R>L) levator scapula, SCM, pec, and upper trapezius. Atrophy of R upper trapezius, scalenes, rotator cuff musculature pec length: 13 cm L pec, 16 cm R pec (measured elbows from behind head to table) Joint Mobility Assessment Joint Mobility Assessment Decreased R shoulder mobility and scapular mobility. Limitations and hypomobility of cervical spine, increased rotation during supine PROM rotation and lateral flexion than seated AROM Other Manual Assessments Other Manual Assessments Cranial nerve testing: tongue deviates toward R side, tongue paresis, difficulty swallowing, decreased sensation along R tongue. Notable drooping of R eyelid, but pupils equally round and reactive to light. PT-OP-G Mobility & Gait Start: 12/06/23 08:58 Freq: Status: Active Protocol: Document 12/06/23 08:59 NM (Rec: 12/06/23 10:53 NM [id number]) OP Gait Assessment Gait Gait Assistance Required: Independent Distance (Feet) 150 Gait Deviations General Gait Pattern Antalgic Comments Gait Comments Decreased time in R stance, unable to fully extend R knee and demos signs of quad weakness on R side PT-OP-H Neuro Start: 12/06/23 08:58 Freq: Status: Active Protocol: Document 12/06/23 08:59 NM (Rec: 12/06/23 09:47 NM [id number]) Sensation Evaluation Comments Summary Comments BUE intact to light touch sensation. Less sensitivity to light touch sensation along R lower face (V2-V3 distribution) and neck (C3-C4) dermatomes Deep Tendon Reflex & Clonus Assessment Deep Tendon Reflex Bilateral Brachioradialis Deep Tendon Reflex 1+ Diminished Bilateral Bicep Deep Tendon Reflex 1+ Diminished PT-OP-J Posture/Palpation/Skin Start: 12/06/23 08:58 Freq: Status: Active Protocol: Document 12/06/23 08:59 NM (Rec: 12/06/23 09:47 NM [id number]) Posture Evaluation Position Standing Head/C-Spine Posture Forward Head Shoulder Posture (L) Rounded,(R) Rounded,(L) Forward,(R) Forward Scapula Posture (L) Elevated,(R) Elevated,(R) Tipped Arm Posture (L) Internally Rotated,(R) Internally Rotated Comments Posture Comments fwd head Palpation Assessment Location neck Palpation Details Increased tone and restrictions of R sided: SCM, scalenes, levator scapula, paraspinals, pec Atrophy noted of R upper trap, scalenes, rotator cuff Trigger point or possible palpable knot of R superior- medial angle near levator scapula distal insertion, tender to palpable and tight Skin Assessment Other Assessments Skin Assessment Comments Redness and appearance of kenney related to radiation therapy along R neck and shoulder. Skin is leather drier on R side than L side PT-OP-K Range of Motion Start: 12/06/23 08:58 Freq: Status: Active Protocol: Document 01/25/24 08:06 NM (Rec: 01/25/24 08:07 NM [id number]) Cervical Spine Range of Motion Cervical Spine Active Degrees Flexion 50 Extension 40 Rotation Left 42 Rotation Right 45 Lateral Flexion Left 20 Lateral Flexion Right 25 Comments discomfort w/ ext; tightness with L LF, R rot Decreased thoracic rotation, ext 01/25/24: 55 deg flex, 40 deg ext, 20 deg LF L, 30 deg L, 60 deg R, 65 deg L, PT-OP-L Special Tests Start: 12/06/23 08:58 Freq: Status: Active Protocol: Document 12/13/23 07:30 NM (Rec: 12/13/23 12:48 NM [id number]) Special Tests Cervical Spine Special Tests Vertebral Artery Test Results - PT-OP-M Strength Start: 12/06/23 08:58 Freq: Status: Active Protocol: Document 12/06/23 08:59 NM (Rec: 12/06/23 09:47 NM [id number]) Cervical Spine Strength Cervical Spine Manual Muscle Testing Flexion (C1-2) 4 Good Extension 4 Good Rotation Left 3+ Fair+ Rotation Right 3+ Fair+ Lateral Flexion Left (C3) 3+ Fair+ Lateral Flexion Right (C3) 3+ Fair+ Comments mild pain with resisted rotation and lateral flexion PT-OP-Q Treatments Start: 12/06/23 08:58 Freq: Status: Active Protocol: Document 02/01/24 09:07 SP (Rec: 02/01/24 09:49 SP [id number]) Therapeutic Exercises Sitting Exercises CS AROM Sitting Exercise Name 1. lateral flex L AROM, 2. L lateral flex level 2 band active (HEP) Side left Equipment Used Tb anchored 49.5 from floor, seated in mesh chair Reps/Minutes 1. 10x2, 2. 15 reps 5 SH Comments post manual tx; AROM tension CS retraction Sitting Exercise Name retraction DNF neutral Resistance TB #2 teal- BUE anchored front /arms rested on lateral chest Reps/Minutes 5 Sh x10 Comments CUed elevated posture Standing Exercises shld ext /c CS Rotation Standing Exercise Name trialed in PT, added to HEP declined HO Side bilateral Resistance TB #3 Reps/Minutes 10reps CS rotation during isometric hold Comments Improved active ext /c Rotation postural & good effort rotation modified TS mobility Standing Exercise Name 1. thread needle, 2. chicken wing fot CT junction mob Side bilateral Reps/Minutes 10x5 ea Comments HEP Other Exercises CS rotation Other Exercise Name plank off counter Reps/Minutes x10 Comments cues is easy now- ed continue with TB now Manual Therapy Treatment Consent Patient gave verbal consent for manual Yes treatment Soft Tissue Mobilization cervical spine Body Location R UT, LS, SCM, scalenes, subclavius Mobilization Type Rolling,Other Intensity/Depth Moderate Body Position Supine Comments VC for breathing from diaphragm. Less tightness tension R SCM, scalene and improved L SB & L rotation Manual Techniques contract-relax Type R lateral flex volodymyr > relax and move into L lateral flexion Body Location cervical spine (SCM) Body Position Hooklying Reps/Duration 15x5 Comments HOSPICE CONSULTANT providing manual resistance. Following soft tissue mobilization cervical spine stretch Type passive stretch into L lateral flexion and rotation Reps/Duration 2 min total time Comments Monitored for pain PT-OP-T Assessment and Plan Start: 12/06/23 08:58 Freq: Status: Active Protocol: Document 02/01/24 09:07 SP (Rec: 02/01/24 09:49 SP [id number]) Physical Therapy Assessment Goals Four Impairment HEP compliance Short Term Goal (STG) Pt will be issued and educated on HEP, including compliance at least 3x/wk in order to maximize progression with PT 01/25/24: pt compliant with HEP until back pain started 1 week ago, has not performed since STG Duration 5 weeks Usp Goal (LTG) Pt will report compliance with HEP at least 3x/wk in order to maintain progress made during PT and to promote independence at discharge LTG Duration 8 weeks 03/24/24- GOAL UPDATED Three Impairment R cervical spine rotation 45 deg Coal Unloader Goal (LTG) Pt will improve R rotation AROM to at least 60 deg in order to demonstrate improved mobility for visual scanning 01/25/24: 60 deg R rot LTG Duration 10 weeks MET 01/24/24 Two Impairment L cervical spine lateral flexion 20 deg and painful Usp Goal (LTG) Pt will improve L lateral flexion AROM to within 5 deg of R lateral flexion AROM without increase in baseline pain to demonstrate improved tissue length 01/25/24: 20 deg L lateral flexion pre-manual (30 post manual) LTG Duration 10 weeks PROGRESSING; UPDATED 8 weeks 03/24/24 One Impairment L cervical spine Rotation 42 deg Usp Goal (LTG) Pt will improve L rotation AROM to at least 60 deg in order to demonstrate improved mobility for visual scanning 01/25/24: 65 deg L rot LTG Duration 10 weeks MET 01/25/24 Assessment Summary Assessment Pt report less tension post manual and improve form with TB anchored out to R side and resisted shld ext with cervical rotation found more better active feeling vs AROM with more effort, will continue home. Physical Therapy Plan Frequency and Duration Frequency of Treatment 1-2x/wk Duration of treatment (weeks) 8 Plan of Care Start Date 01/25/24 Plan of Care End Date 03/24/24 Therapeutic Interventions Therapeutic Interventions Balance Training,Gait Training ,Home Exercise Program,Joint Mobilizations,Manual Therapy, Neuromuscular Re-education, Orthotic/Prosthetic Management ,Self-Care/Home Management, Sensory Integration,Soft Tissue Mobilization,Taping, Therapeutic Activities, Therapeutic Exercises Other Therapeutic Interventions No modalities due to PMH of cancer Next Visit Focus/Plan Next Note Type Treatment Note Next Visit Plan Cervical lateral flex, rot, and retract w/ band. cont with thoracic mobility, stretching , active ROM and maintaining mobility. Functional rotation and lateral flexion, add gentle UE mobility with head motions POC: cervical spine manual soft tissue, stretching R side , postural re-education elli in standing review standing chin tuck, wall posture and add periscapular activation, Continue contract-relax isometrics of cervical spine to reduce R sided tension. Use water-based lotion for STM no modalities Assess CS AROM rotation
--- NOTE | 2024-02-08 09:47 | PT.OTN ---
Current Diagnoses Squamous cell carcinoma of skin of scalp and neck (02/08/24) Trigeminal neuralgia (02/08/24) Stiffness of unspecified joint, not elsewhere classified (02/08/24) Other lack of coordination (02/08/24) Other symptoms and signs involving the musculoskeletal system (02/08/24) Weakness (02/08/24) Physical Therapy Treatment Note PT-OP-A Visit Information Start: 12/06/23 08:58 Freq: Status: Active Protocol: Document 02/08/24 09:03 NM (Rec: 02/08/24 09:47 NM [id number]) Out-Patient Physical Therapy Visit Information Visit Information Visit Type Treatment Note Visit Start Time 09:04 Visit Stop Time 09:44 Visit Number 11 (06/05 w/ PN) PT-OP-B Current Condition Start: 12/06/23 08:58 Freq: Status: Active Protocol: Document 12/06/23 08:59 NM (Rec: 12/06/23 09:47 NM [id number]) Current Condition History of Current Condition Onset Date September 2023 Current Complaints pain, poor mobility History of Current Condition Pt presents with R sided neck pain following cancer treatment. He recently finished proton therapy treatment due to tumor in his neck on 10/08/23. Pt began work up for cancer around February 2023, diagnosed in May- June 2023. He had had squamous skin cancer of R jaw; PMH of same type of skin cancer in R ear 5 years ago. He has had both chemotherapy and proton radiation, 34 sessions total. He states that the tumor is gone but the muscle tightness is still alot , which causes discomfort. He states that he muscles are starting to relax but still feels tight. R eyelid is drooping; states did not prior to treatment. Had not noticed changes in UE strength or pupils. He is currently going to speech therapy. Pt has also done a barium swallow, and has gone to an ENT for further assessment. 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 Pt has been in the ER 3x during previous treatment due to dehydration. He has CT scan on 12/28/23 (3 month follow up with imaging), 01/04/24 follow up with radiologist/oncologist . He has mild numbness along R jaw, R tongue. Voice is very hoarse. Pt has occasionally had headaches, 2/10 pain (over R side of head, then up/over forehead); he gets headaches every day. Pt's sight and hearing is diminished. He had cetuximab for chemo. In May 2023, pt had R knee surgery due to torn quad tendon, which influences balance and gait; unable to straighten leg completely. Prior Treatments and Tests Previous PT for R shoulder in late 2022; pt reports no change, still bothers him since ending PT Current Functional Impairments (Reported) Functional Limitations- ADL's turning head limited and painful, may be affecting chewing and speech Functional Limitations- Other reports no difficulty with sleeping PT-OP-C Subjective Start: 12/06/23 08:58 Freq: Status: Active Protocol: Document 02/08/24 09:03 NM (Rec: 02/08/24 09:47 NM [id number]) OP-PT Subjective Patient Comments Patient Comments Pt reports that neck ROM is improving, states better looking with driving. Reports has not been very diligent with HEP, but states goes well when he does them. He strained his back several weeks ago which makes exercises hard, reports gradually getting. He recently got a blood test and reports anemic PT-OP-F Manual Assessment Start: 12/06/23 08:58 Freq: Status: Active Protocol: Document 12/06/23 08:59 NM (Rec: 12/06/23 09:47 NM [id number]) Manual Assessments Soft Tissue Assessment Soft Tissue Mobility Assessment Increased restriction and hypertrophy of R SCM, paraspinals, deep neck flexors . Tightness of (R>L) levator scapula, SCM, pec, and upper trapezius. Atrophy of R upper trapezius, scalenes, rotator cuff musculature pec length: 13 cm L pec, 16 cm R pec (measured elbows from behind head to table) Joint Mobility Assessment Joint Mobility Assessment Decreased R shoulder mobility and scapular mobility. Limitations and hypomobility of cervical spine, increased rotation during supine PROM rotation and lateral flexion than seated AROM Other Manual Assessments Other Manual Assessments Cranial nerve testing: tongue deviates toward R side, tongue paresis, difficulty swallowing, decreased sensation along R tongue. Notable drooping of R eyelid, but pupils equally round and reactive to light. PT-OP-G Mobility & Gait Start: 12/06/23 08:58 Freq: Status: Active Protocol: Document 12/06/23 08:59 NM (Rec: 12/06/23 10:53 NM [id number]) OP Gait Assessment Gait Gait Assistance Required: Independent Distance (Feet) 150 Gait Deviations General Gait Pattern Antalgic Comments Gait Comments Decreased time in R stance, unable to fully extend R knee and demos signs of quad weakness on R side PT-OP-H Neuro Start: 12/06/23 08:58 Freq: Status: Active Protocol: Document 12/06/23 08:59 NM (Rec: 12/06/23 09:47 NM [id number]) Sensation Evaluation Comments Summary Comments BUE intact to light touch sensation. Less sensitivity to light touch sensation along R lower face (V2-V3 distribution) and neck (C3-C4) dermatomes Deep Tendon Reflex & Clonus Assessment Deep Tendon Reflex Bilateral Brachioradialis Deep Tendon Reflex 1+ Diminished Bilateral Bicep Deep Tendon Reflex 1+ Diminished PT-OP-J Posture/Palpation/Skin Start: 12/06/23 08:58 Freq: Status: Active Protocol: Document 12/06/23 08:59 NM (Rec: 12/06/23 09:47 NM [id number]) Posture Evaluation Position Standing Head/C-Spine Posture Forward Head Shoulder Posture (L) Rounded,(R) Rounded,(L) Forward,(R) Forward Scapula Posture (L) Elevated,(R) Elevated,(R) Tipped Arm Posture (L) Internally Rotated,(R) Internally Rotated Comments Posture Comments fwd head Palpation Assessment Location neck Palpation Details Increased tone and restrictions of R sided: SCM, scalenes, levator scapula, paraspinals, pec Atrophy noted of R upper trap, scalenes, rotator cuff Trigger point or possible palpable knot of R superior- medial angle near levator scapula distal insertion, tender to palpable and tight Skin Assessment Other Assessments Skin Assessment Comments Redness and appearance of kenney related to radiation therapy along R neck and shoulder. Skin is graphite pan drier tender on R side than L side PT-OP-K Range of Motion Start: 12/06/23 08:58 Freq: Status: Active Protocol: Document 01/25/24 08:06 NM (Rec: 01/25/24 08:07 NM [id number]) Cervical Spine Range of Motion Cervical Spine Active Degrees Flexion 50 Extension 40 Rotation Left 42 Rotation Right 45 Lateral Flexion Left 20 Lateral Flexion Right 25 Comments discomfort w/ ext; tightness with L LF, R rot Decreased thoracic rotation, ext 01/25/24: 55 deg flex, 40 deg ext, 20 deg LF L, 30 deg L, 60 deg R, 65 deg L, PT-OP-L Special Tests Start: 12/06/23 08:58 Freq: Status: Active Protocol: Document 12/13/23 07:30 NM (Rec: 12/13/23 12:48 NM [id number]) Special Tests Cervical Spine Special Tests Vertebral Artery Test Results - PT-OP-M Strength Start: 12/06/23 08:58 Freq: Status: Active Protocol: Document 12/06/23 08:59 NM (Rec: 12/06/23 09:47 NM [id number]) Cervical Spine Strength Cervical Spine Manual Muscle Testing Flexion (C1-2) 4 Good Extension 4 Good Rotation Left 3+ Fair+ Rotation Right 3+ Fair+ Lateral Flexion Left (C3) 3+ Fair+ Lateral Flexion Right (C3) 3+ Fair+ Comments mild pain with resisted rotation and lateral flexion PT-OP-Q Treatments Start: 12/06/23 08:58 Freq: Status: Active Protocol: Document 02/08/24 09:03 NM (Rec: 02/08/24 09:47 NM [id number]) Therapeutic Exercises Sitting Exercises rib mobilization Sitting Exercise Name self mobilization w/ movement with band Side right Equipment Used with L LF and R rot, using level 5 band to tension at ribs Reps/Minutes 10x3 CS AROM Sitting Exercise Name L lateral flex level 2 band active (HEP) Side left Equipment Used PT hold band Reps/Minutes 15 Comments post manual tx; AROM tension cervical spine stretching Sitting Exercise Name w/ rib distraction: 1. UT, 2. SCM Side right Equipment Used level 5 band for tension; opp hand to tension at chair Reps/Minutes 2x30 ea Comments post manual tx Standing Exercises mid row w/ CS Rot Standing Exercise Name opp CS rot w/ row Side bilateral Resistance level 1 band Equipment Used w/ cervical retraction Reps/Minutes 10 w/ 2 hold Comments pain free; reports crackling but states feels good Other Exercises wall posture Other Exercise Name DNF w/ 1. B ER field goals, 2. B ER w/ rotation Side bilateral Resistance level 1 band Reps/Minutes 1. 10, 2. 10 w/ head rot Manual Therapy Treatment Consent Patient gave verbal consent for manual Yes treatment Soft Tissue Mobilization cervical spine Body Location R UT, LS, SCM, scalenes, subclavius Mobilization Type Rolling,Other Intensity/Depth Moderate Body Position Supine Comments VC for breathing from diaphragm. Less tightness tension R SCM, scalene and improved L SB & L rotation Manual Techniques cervical spine stretch Type passive stretch into L lateral flexion and rotation w/ ext Reps/Duration 2 min total time Comments Monitored for pain PT-OP-T Assessment and Plan Start: 12/06/23 08:58 Freq: Status: Active Protocol: Document 02/08/24 09:03 NM (Rec: 02/08/24 09:47 NM [id number]) Physical Therapy Assessment Goals Four Impairment HEP compliance Short Term Goal (STG) Pt will be issued and educated on HEP, including compliance at least 3x/wk in order to maximize progression with PT 01/25/24: pt compliant with HEP until back pain started 1 week ago, has not performed since STG Duration 5 weeks Longterm Goal (LTG) Pt will report compliance with HEP at least 3x/wk in order to maintain progress made during PT and to promote independence at discharge LTG Duration 8 weeks 03/24/24- GOAL UPDATED Three Impairment R cervical spine rotation 45 deg Longterm Goal (LTG) Pt will improve R rotation AROM to at least 60 deg in order to demonstrate improved mobility for visual scanning 01/25/24: 60 deg R rot LTG Duration 10 weeks MET 01/24/24 Two Impairment L cervical spine lateral flexion 20 deg and painful Boring Machine Operator Production Goal (LTG) Pt will improve L lateral flexion AROM to within 5 deg of R lateral flexion AROM without increase in baseline pain to demonstrate improved tissue length 01/25/24: 20 deg L lateral flexion pre-manual (30 post manual) 02/08/24: pre-manual 30 deg R lateral flex, 25 deg L lateral flex LTG Duration 10 weeks PROGRESSING; UPDATED 8 weeks 03/24/24 One Impairment L cervical spine Rotation 42 deg Boring Machine Operator Production Goal (LTG) Pt will improve L rotation AROM to at least 60 deg in order to demonstrate improved mobility for visual scanning 01/25/24: 65 deg L rot LTG Duration 10 weeks MET 01/25/24 Assessment Summary Assessment Pt tolerated session well. Reports getting some feeling back in his lower jaw. Demonstrates improved B lateral flexion AROM pre- manual. Continued with stretching to lengthen R SCM. Added first rib mobilization and scapular setting with tension during stretching and rib mobilization. Continued with maintaining cervical ROM with funcitional strength. Challenging to coordinate head motions with periscapular activation. Less frequent cues needed for head posture and for carryover. At end of sessions, has 34 deg B lateral flexion of cervical spine. Pt would benefit from skilled PT for progressive cervical spine AROM in order to improve symptom management and flexibility for visual scanning during driving and ADLs. Physical Therapy Plan Frequency and Duration Frequency of Treatment 1-2x/wk Duration of treatment (weeks) 8 Plan of Care Start Date 01/25/24 Plan of Care End Date 03/24/24 Therapeutic Interventions Therapeutic Interventions Balance Training,Gait Training ,Home Exercise Program,Joint Mobilizations,Manual Therapy, Neuromuscular Re-education, Orthotic/Prosthetic Management ,Self-Care/Home Management, Sensory Integration,Soft Tissue Mobilization,Taping, Therapeutic Activities, Therapeutic Exercises Other Therapeutic Interventions No modalities due to PMH of cancer Other Referrals/Consults Referrals/Consults Recommended 01/18/24: discussed call Dr Mckenzie's office about R lateral ribcage discomfort/pain having approx T10 region. Next Visit Focus/Plan Next Note Type Treatment Note Next Visit Plan Assess eryn to periscap w/ CS movement. Progress periscap strength and postural exercises. Cervical lateral flex, rot, and retract w/ band . cont with thoracic mobility, stretching, active ROM and maintaining mobility. Functional rotation and lateral flexion, add gentle UE mobility with head motions POC: cervical spine manual soft tissue, stretching R side , postural re-education elli in standing review standing chin tuck, wall posture and add periscapular activation, Continue contract-relax isometrics of cervical spine to reduce R sided tension. Use water-based lotion for STM no modalities Assess CS AROM rotation
--- NOTE | 2024-02-15 09:45 | PT.OTN ---
Current Diagnoses Squamous cell carcinoma of skin of scalp and neck (02/15/24) Trigeminal neuralgia (02/15/24) Stiffness of unspecified joint, not elsewhere classified (02/15/24) Other lack of coordination (02/15/24) Other symptoms and signs involving the musculoskeletal system (02/15/24) Weakness (02/15/24) Physical Therapy Treatment Note PT-OP-A Visit Information Start: 12/06/23 08:58 Freq: Status: Active Protocol: Document 02/15/24 09:05 SP (Rec: 02/15/24 09:51 SP [id number]) Out-Patient Physical Therapy Visit Information Visit Information Visit Type Treatment Note Visit Start Time 09:05 Visit Stop Time 09:45 Visit Number 12 (07/06 w/ PN) Number of [employer]IV[employer] SUPERVISOR Visits 1 Evaluation Information Evaluation Date 12/06/23 Precautions Precautions Hx of skin cancer of head/neck , 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 He recently finished proton therapy treatment due to tumor in his neck on 10/08/23. Pt began work up for cancer around February 2023, diagnosed in May- June 2023. He had had squamous skin cancer of R jaw; PMH of same type of skin cancer in R ear 5 years ago. He has had both chemotherapy and proton radiation, 34 sessions total. He states that the tumor is gone but the muscle tightness is still alot , which causes discomfort. He states that he muscles are starting to relax but still feels tight. R eyelid is drooping; states did not prior to treatment. Had not noticed changes in UE strength or pupils. He is currently going to speech therapy. Pt has also done a barium swallow, and has gone to an ENT for further assessment. 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 Pt has been in the ER 3x during previous treatment due to dehydration. He has CT scan on 12/28/23 (3 month follow up with imaging), 01/04/24 follow up with radiologist/oncologist . He has mild numbness along R jaw, R tongue. Voice is very hoarse. Pt has occasionally had headaches, 2/10 pain (over R side of head, then up/over forehead); he gets headaches every day. Pt's sight and hearing is diminished. He had cetuximab for chemo. In May 2023, pt had R knee surgery due to torn quad tendon, which influences balance and gait; unable to straighten leg completely. Prior Treatments and Tests Previous PT for R shoulder in late 2022; pt reports no change, still bothers him since ending PT Current Functional Impairments (Reported) Functional Limitations- ADL's turning head limited and painful, may be affecting chewing and speech Functional Limitations- Other reports no difficulty with sleeping PT-OP-C Subjective Start: 12/06/23 08:58 Freq: Status: Active Protocol: Document 02/15/24 09:05 SP (Rec: 02/15/24 09:51 SP [id number]) OP-PT Subjective Patient Comments Patient Comments Pt reports little by little seeing some changes gradual flexibility in R lateral neck points to SCM. Saw himself on Ring doorbell and suprised on his forward posture. Trying to be more mindful of taller and head position, wonder if posture strap can help too. PT-OP-F Manual Assessment Start: 12/06/23 08:58 Freq: Status: Active Protocol: Document 12/06/23 08:59 NM (Rec: 12/06/23 09:47 NM [id number]) Manual Assessments Soft Tissue Assessment Soft Tissue Mobility Assessment Increased restriction and hypertrophy of R SCM, paraspinals, deep neck flexors . Tightness of (R>L) levator scapula, SCM, pec, and upper trapezius. Atrophy of R upper trapezius, scalenes, rotator cuff musculature pec length: 13 cm L pec, 16 cm R pec (measured elbows from behind head to table) Joint Mobility Assessment Joint Mobility Assessment Decreased R shoulder mobility and scapular mobility. Limitations and hypomobility of cervical spine, increased rotation during supine PROM rotation and lateral flexion than seated AROM Other Manual Assessments Other Manual Assessments Cranial nerve testing: tongue deviates toward R side, tongue paresis, difficulty swallowing, decreased sensation along R tongue. Notable drooping of R eyelid, but pupils equally round and reactive to light. PT-OP-G Mobility & Gait Start: 12/06/23 08:58 Freq: Status: Active Protocol: Document 12/06/23 08:59 NM (Rec: 12/06/23 10:53 NM [id number]) OP Gait Assessment Gait Gait Assistance Required: Independent Distance (Feet) 150 Gait Deviations General Gait Pattern Antalgic Comments Gait Comments Decreased time in R stance, unable to fully extend R knee and demos signs of quad weakness on R side PT-OP-H Neuro Start: 12/06/23 08:58 Freq: Status: Active Protocol: Document 12/06/23 08:59 NM (Rec: 12/06/23 09:47 NM [id number]) Sensation Evaluation Comments Summary Comments BUE intact to light touch sensation. Less sensitivity to light touch sensation along R lower face (V2-V3 distribution) and neck (C3-C4) dermatomes Deep Tendon Reflex & Clonus Assessment Deep Tendon Reflex Bilateral Brachioradialis Deep Tendon Reflex 1+ Diminished Bilateral Bicep Deep Tendon Reflex 1+ Diminished PT-OP-J Posture/Palpation/Skin Start: 12/06/23 08:58 Freq: Status: Active Protocol: Document 12/06/23 08:59 NM (Rec: 12/06/23 09:47 NM [id number]) Posture Evaluation Position Standing Head/C-Spine Posture Forward Head Shoulder Posture (L) Rounded,(R) Rounded,(L) Forward,(R) Forward Scapula Posture (L) Elevated,(R) Elevated,(R) Tipped Arm Posture (L) Internally Rotated,(R) Internally Rotated Comments Posture Comments fwd head Palpation Assessment Location neck Palpation Details Increased tone and restrictions of R sided: SCM, scalenes, levator scapula, paraspinals, pec Atrophy noted of R upper trap, scalenes, rotator cuff Trigger point or possible palpable knot of R superior- medial angle near levator scapula distal insertion, tender to palpable and tight Skin Assessment Other Assessments Skin Assessment Comments Redness and appearance of kenney related to radiation therapy along R neck and shoulder. Skin is key person on R side than L side PT-OP-K Range of Motion Start: 12/06/23 08:58 Freq: Status: Active Protocol: Document 01/25/24 08:06 NM (Rec: 01/25/24 08:07 NM [id number]) Cervical Spine Range of Motion Cervical Spine Active Degrees Flexion 50 Extension 40 Rotation Left 42 Rotation Right 45 Lateral Flexion Left 20 Lateral Flexion Right 25 Comments discomfort w/ ext; tightness with L LF, R rot Decreased thoracic rotation, ext 01/25/24: 55 deg flex, 40 deg ext, 20 deg LF L, 30 deg L, 60 deg R, 65 deg L, PT-OP-L Special Tests Start: 12/06/23 08:58 Freq: Status: Active Protocol: Document 12/13/23 07:30 NM (Rec: 12/13/23 12:48 NM [id number]) Special Tests Cervical Spine Special Tests Vertebral Artery Test Results - PT-OP-M Strength Start: 12/06/23 08:58 Freq: Status: Active Protocol: Document 12/06/23 08:59 NM (Rec: 12/06/23 09:47 NM [id number]) Cervical Spine Strength Cervical Spine Manual Muscle Testing Flexion (C1-2) 4 Good Extension 4 Good Rotation Left 3+ Fair+ Rotation Right 3+ Fair+ Lateral Flexion Left (C3) 3+ Fair+ Lateral Flexion Right (C3) 3+ Fair+ Comments mild pain with resisted rotation and lateral flexion PT-OP-Q Treatments Start: 12/06/23 08:58 Freq: Status: Active Protocol: Document 02/15/24 09:05 SP (Rec: 02/15/24 09:51 SP [id number]) Therapeutic Exercises Sitting Exercises rib mobilization Sitting Exercise Name self mobilization w/ movement with band Side right Resistance TB #5 over 1st rib, across chest to L UE at side Equipment Used with L LF and R rot, using level 5 band to tension at ribs Reps/Minutes 10x3 Comments provided HO CS AROM Sitting Exercise Name L lateral flex level 2 band active (HEP) Side left Resistance TB #2 anchored on bodysolid ( doorway home) Reps/Minutes 15 reps x 5 SH Comments post manual tx cervical spine stretching Sitting Exercise Name w/ rib distraction: 1. UT, 2. SCM Side right Resistance L SB end feel then rotation L for SCM stretch Equipment Used level 5 band over 1st rib for tension; RUE clasp under chair Reps/Minutes 2x30 ea Comments post manual tx- provided HO Standing Exercises shld ext /c CS Rotation Standing Exercise Name review- gave HO Side bilateral Resistance TB #5 dark teal Reps/Minutes 10reps CS rotation during isometric hold Comments Improved active ext /c Rotation postural & good effort rotation Manual Therapy Treatment Consent Patient gave verbal consent for manual Yes treatment Soft Tissue Mobilization cervical spine Body Location R UT, LS, SCM, scalenes, subclavius Mobilization Type Rolling,Sustained Pressure, Other Intensity/Depth Moderate Body Position Supine Comments VC for breathing from diaphragm. Less tightness tension R SCM, scalene and improved L SB & L rotation. MWM head turns: LS, UT, SCM Manual Techniques contract-relax Type R lateral flex volodymyr > relax and move into L lateral flexion Body Location cervical spine (SCM) Body Position Hooklying Reps/Duration 4x5 Comments [employer] SUPERVISOR providing manual resistance. Following soft tissue mobilization cervical spine stretch Type passive stretch into L lateral flexion and rotation w/ ext Reps/Duration 2 min total time Comments Monitored for pain PT-OP-T Assessment and Plan Start: 12/06/23 08:58 Freq: Status: Active Protocol: Document 02/15/24 09:05 SP (Rec: 02/15/24 09:51 SP [id number]) Physical Therapy Assessment Goals Four Impairment HEP compliance Short Term Goal (STG) Pt will be issued and educated on HEP, including compliance at least 3x/wk in order to maximize progression with PT 01/25/24: pt compliant with HEP until back pain started 1 week ago, has not performed since STG Duration 5 weeks Nut Process Helper Goal (LTG) Pt will report compliance with HEP at least 3x/wk in order to maintain progress made during PT and to promote independence at discharge LTG Duration 8 weeks 03/24/24- GOAL UPDATED Three Impairment R cervical spine rotation 45 deg Mcfp Goal (LTG) Pt will improve R rotation AROM to at least 60 deg in order to demonstrate improved mobility for visual scanning 01/25/24: 60 deg R rot LTG Duration 10 weeks MET 01/24/24 Two Impairment L cervical spine lateral flexion 20 deg and painful Mcfp Goal (LTG) Pt will improve L lateral flexion AROM to within 5 deg of R lateral flexion AROM without increase in baseline pain to demonstrate improved tissue length 01/25/24: 20 deg L lateral flexion pre-manual (30 post manual) 02/08/24: pre-manual 30 deg R lateral flex, 25 deg L lateral flex LTG Duration 10 weeks PROGRESSING; UPDATED 8 weeks 03/24/24 One Impairment L cervical spine Rotation 42 deg Mcfp Goal (LTG) Pt will improve L rotation AROM to at least 60 deg in order to demonstrate improved mobility for visual scanning 01/25/24: 65 deg L rot LTG Duration 10 weeks MET 01/25/24 Assessment Summary Assessment Pt improved plyability to R SCM, UT, Scalene post manual and instruction use theraband with hands outs provided for self set up and carryover MWM neck musculature ROM and reports good scap engagement and elevated head posture during resisted shld ext and incorporation of head turns post self stretching use band to allow head more elevated midine positioning.. Physical Therapy Plan Frequency and Duration Frequency of Treatment 1-2x/wk Duration of treatment (weeks) 8 Plan of Care Start Date 01/25/24 Plan of Care End Date 03/24/24 Therapeutic Interventions Therapeutic Interventions Balance Training,Gait Training ,Home Exercise Program,Joint Mobilizations,Manual Therapy, Neuromuscular Re-education, Orthotic/Prosthetic Management ,Self-Care/Home Management, Sensory Integration,Soft Tissue Mobilization,Taping, Therapeutic Activities, Therapeutic Exercises Other Therapeutic Interventions No modalities due to PMH of cancer Other Referrals/Consults Referrals/Consults Recommended 01/18/24: discussed call Dr Mckenzie's office about R lateral ribcage discomfort/pain having approx T10 region. Next Visit Focus/Plan Next Note Type Treatment Note Next Visit Plan Assess eryn to periscap w/ CS movement. Progress periscap strength and postural exercises. Cervical lateral flex, rot, and retract w/ band . cont with thoracic mobility, stretching, active ROM and maintaining mobility. Functional rotation and lateral flexion, add gentle UE mobility with head motions POC: cervical spine manual soft tissue, stretching R side , postural re-education elli in standing review standing chin tuck, wall posture and add periscapular activation, Continue contract-relax isometrics of cervical spine to reduce R sided tension. Use water-based lotion for STM no modalities Assess CS AROM rotation
--- NOTE | 2024-02-22 10:37 | PT.OTN ---
Current Diagnoses Squamous cell carcinoma of skin of scalp and neck (02/22/24) Trigeminal neuralgia (02/22/24) Stiffness of unspecified joint, not elsewhere classified (02/22/24) Other lack of coordination (02/22/24) Other symptoms and signs involving the musculoskeletal system (02/22/24) Weakness (02/22/24) Physical Therapy Treatment Note PT-OP-A Visit Information Start: 12/06/23 08:58 Freq: Status: Active Protocol: Document 02/22/24 09:05 NM (Rec: 02/22/24 09:42 NM [id number]) Out-Patient Physical Therapy Visit Information Visit Information Visit Type Treatment Note Visit Start Time 09:05 Visit Stop Time 09:44 Visit Number 13 (08/05 w/ PN) Evaluation Information Evaluation Date 12/06/23 Precautions Precautions Hx of skin cancer of head/neck , 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 He recently finished proton therapy treatment due to tumor in his neck on 10/08/23. Pt began work up for cancer around February 2023, diagnosed in May- June 2023. He had had squamous skin cancer of R jaw; PMH of same type of skin cancer in R ear 5 years ago. He has had both chemotherapy and proton radiation, 34 sessions total. He states that the tumor is gone but the muscle tightness is still alot , which causes discomfort. He states that he muscles are starting to relax but still feels tight. R eyelid is drooping; states did not prior to treatment. Had not noticed changes in UE strength or pupils. He is currently going to speech therapy. Pt has also done a barium swallow, and has gone to an ENT for further assessment. 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 Pt has been in the ER 3x during previous treatment due to dehydration. He has CT scan on 12/28/23 (3 month follow up with imaging), 01/04/24 follow up with radiologist/oncologist . He has mild numbness along R jaw, R tongue. Voice is very hoarse. Pt has occasionally had headaches, 2/10 pain (over R side of head, then up/over forehead); he gets headaches every day. Pt's sight and hearing is diminished. He had cetuximab for chemo. In May 2023, pt had R knee surgery due to torn quad tendon, which influences balance and gait; unable to straighten leg completely. Prior Treatments and Tests Previous PT for R shoulder in late 2022; pt reports no change, still bothers him since ending PT Current Functional Impairments (Reported) Functional Limitations- ADL's turning head limited and painful, may be affecting chewing and speech Functional Limitations- Other reports no difficulty with sleeping PT-OP-C Subjective Start: 12/06/23 08:58 Freq: Status: Active Protocol: Document 02/22/24 09:05 NM (Rec: 02/22/24 09:42 NM [id number]) OP-PT Subjective Patient Comments Patient Comments Pt reports that his neck is feeling less angry, regarding the muscles. He reports ROM is improving, does not limit him a lot. He notices discomfort with sleeping, elli with lying on his R side, keeps him from going to sleep. Back to doing HEP 3x/wk, rib not bothering him as much PT-OP-F Manual Assessment Start: 12/06/23 08:58 Freq: Status: Active Protocol: Document 12/06/23 08:59 NM (Rec: 12/06/23 09:47 NM [id number]) Manual Assessments Soft Tissue Assessment Soft Tissue Mobility Assessment Increased restriction and hypertrophy of R SCM, paraspinals, deep neck flexors . Tightness of (R>L) levator scapula, SCM, pec, and upper trapezius. Atrophy of R upper trapezius, scalenes, rotator cuff musculature pec length: 13 cm L pec, 16 cm R pec (measured elbows from behind head to table) Joint Mobility Assessment Joint Mobility Assessment Decreased R shoulder mobility and scapular mobility. Limitations and hypomobility of cervical spine, increased rotation during supine PROM rotation and lateral flexion than seated AROM Other Manual Assessments Other Manual Assessments Cranial nerve testing: tongue deviates toward R side, tongue paresis, difficulty swallowing, decreased sensation along R tongue. Notable drooping of R eyelid, but pupils equally round and reactive to light. PT-OP-G Mobility & Gait Start: 12/06/23 08:58 Freq: Status: Active Protocol: Document 12/06/23 08:59 NM (Rec: 12/06/23 10:53 NM [id number]) OP Gait Assessment Gait Gait Assistance Required: Independent Distance (Feet) 150 Gait Deviations General Gait Pattern Antalgic Comments Gait Comments Decreased time in R stance, unable to fully extend R knee and demos signs of quad weakness on R side PT-OP-H Neuro Start: 12/06/23 08:58 Freq: Status: Active Protocol: Document 12/06/23 08:59 NM (Rec: 12/06/23 09:47 NM [id number]) Sensation Evaluation Comments Summary Comments BUE intact to light touch sensation. Less sensitivity to light touch sensation along R lower face (V2-V3 distribution) and neck (C3-C4) dermatomes Deep Tendon Reflex & Clonus Assessment Deep Tendon Reflex Bilateral Brachioradialis Deep Tendon Reflex 1+ Diminished Bilateral Bicep Deep Tendon Reflex 1+ Diminished PT-OP-J Posture/Palpation/Skin Start: 12/06/23 08:58 Freq: Status: Active Protocol: Document 12/06/23 08:59 NM (Rec: 12/06/23 09:47 NM [id number]) Posture Evaluation Position Standing Head/C-Spine Posture Forward Head Shoulder Posture (L) Rounded,(R) Rounded,(L) Forward,(R) Forward Scapula Posture (L) Elevated,(R) Elevated,(R) Tipped Arm Posture (L) Internally Rotated,(R) Internally Rotated Comments Posture Comments fwd head Palpation Assessment Location neck Palpation Details Increased tone and restrictions of R sided: SCM, scalenes, levator scapula, paraspinals, pec Atrophy noted of R upper trap, scalenes, rotator cuff Trigger point or possible palpable knot of R superior- medial angle near levator scapula distal insertion, tender to palpable and tight Skin Assessment Other Assessments Skin Assessment Comments Redness and appearance of kenney related to radiation therapy along R neck and shoulder. 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 PT-OP-K Range of Motion Start: 12/06/23 08:58 Freq: Status: Active Protocol: Document 01/25/24 08:06 NM (Rec: 01/25/24 08:07 NM [id number]) Cervical Spine Range of Motion Cervical Spine Active Degrees Flexion 50 Extension 40 Rotation Left 42 Rotation Right 45 Lateral Flexion Left 20 Lateral Flexion Right 25 Comments discomfort w/ ext; tightness with L LF, R rot Decreased thoracic rotation, ext 01/25/24: 55 deg flex, 40 deg ext, 20 deg LF L, 30 deg L, 60 deg R, 65 deg L, PT-OP-L Special Tests Start: 12/06/23 08:58 Freq: Status: Active Protocol: Document 12/13/23 07:30 NM (Rec: 12/13/23 12:48 NM [id number]) Special Tests Cervical Spine Special Tests Vertebral Artery Test Results - PT-OP-M Strength Start: 12/06/23 08:58 Freq: Status: Active Protocol: Document 12/06/23 08:59 NM (Rec: 12/06/23 09:47 NM [id number]) Cervical Spine Strength Cervical Spine Manual Muscle Testing Flexion (C1-2) 4 Good Extension 4 Good Rotation Left 3+ Fair+ Rotation Right 3+ Fair+ Lateral Flexion Left (C3) 3+ Fair+ Lateral Flexion Right (C3) 3+ Fair+ Comments mild pain with resisted rotation and lateral flexion PT-OP-Q Treatments Start: 12/06/23 08:58 Freq: Status: Active Protocol: Document 02/22/24 09:05 NM (Rec: 02/22/24 09:42 NM [id number]) Therapeutic Exercises Sitting Exercises TS extension Sitting Exercise Name with band Side bilateral Resistance lvl 1 band Equipment Used chair w/ 1/2 foam roller behind Reps/Minutes 10x1 Comments pain free; post manual tx Standing Exercises rows Standing Exercise Name 1. mid rows, 2. low rows Side bilateral Resistance lvl 3 band Equipment Used no head motions Reps/Minutes 20 ea Comments pain free; w/ cervical retraction wall periscapulars Standing Exercise Name W <> Y lift offs Side bilateral Reps/Minutes 2x5 wall clocks Standing Exercise Name with cervical retraction Side bilateral Resistance lvl 1 band Reps/Minutes 4 ea side Comments cued for posture and form modified TS mobility Standing Exercise Name 1. open book, 2. rainbow Side bilateral Resistance AROM Equipment Used at wall Reps/Minutes 10 ea Comments cued for form, CS rotation, eyes follow hands Manual Therapy Treatment Consent Patient gave verbal consent for manual Yes treatment Soft Tissue Mobilization cervical spine Body Location R UT, LS, SCM, scalenes, subclavius, pec Mobilization Type Rolling,Sustained Pressure, Other Intensity/Depth Moderate Body Position Supine Comments Less tightness tension R SCM, scalene and improved L SB & L rotation. Thickness noted along R SCM, more prominent today Joint Mobilizations 1st rib Joint R Direction caudal Grade II Body Position Supine Reps/Duration 2x10 Comments elevated today Manual Techniques cervical spine stretch Type passive stretch into L lateral flexion and rotation w/ ext Reps/Duration 2 min total time Comments Monitored for pain PT-OP-T Assessment and Plan Start: 12/06/23 08:58 Freq: Status: Active Protocol: Document 02/22/24 09:05 NM (Rec: 02/22/24 09:42 NM [id number]) Physical Therapy Assessment Goals Four Impairment HEP compliance Short Term Goal (STG) Pt will be issued and educated on HEP, including compliance at least 3x/wk in order to maximize progression with PT 01/25/24: pt compliant with HEP until back pain started 1 week ago, has not performed since STG Duration 5 weeks Junior Designer Goal (LTG) Pt will report compliance with HEP at least 3x/wk in order to maintain progress made during PT and to promote independence at discharge LTG Duration 8 weeks 03/24/24- GOAL UPDATED Three Impairment R cervical spine rotation 45 deg Junior Designer Goal (LTG) Pt will improve R rotation AROM to at least 60 deg in order to demonstrate improved mobility for visual scanning 01/25/24: 60 deg R rot LTG Duration 10 weeks MET 01/24/24 Two Impairment L cervical spine lateral flexion 20 deg and painful Junior Designer Goal (LTG) Pt will improve L lateral flexion AROM to within 5 deg of R lateral flexion AROM without increase in baseline pain to demonstrate improved tissue length 01/25/24: 20 deg L lateral flexion pre-manual (30 post manual) 02/08/24: pre-manual 30 deg R lateral flex, 25 deg L lateral flex LTG Duration 10 weeks PROGRESSING; UPDATED 8 weeks 03/24/24 One Impairment L cervical spine Rotation 42 deg Junior Designer Goal (LTG) Pt will improve L rotation AROM to at least 60 deg in order to demonstrate improved mobility for visual scanning 01/25/24: 65 deg L rot LTG Duration 10 weeks MET 01/25/24 Assessment Summary Assessment Pt continues to respond well to manual treatment and therapeutic exercise. Progressed thoracic mobility training to improve cervicothoracic mobility along kinetic chain. Better scapular engagement with periscapular strengthening at wall and maintains improved/ more efficient head posture/ positioning; limited by shoulder pain/mobility. Pt has ROM of L 35 deg lateral flex, L rot 65, R rot 68 deg, R lateral flexion 30 deg at end of session. Pt would continue to benefit from skilled PT to improve cervical spine flexibility and posture in order to improve ability to sleep with fewer symptoms and improve visual scanning. Physical Therapy Plan Frequency and Duration Frequency of Treatment 1-2x/wk Duration of treatment (weeks) 8 Plan of Care Start Date 01/25/24 Plan of Care End Date 03/24/24 Therapeutic Interventions Therapeutic Interventions Balance Training,Gait Training ,Home Exercise Program,Joint Mobilizations,Manual Therapy, Neuromuscular Re-education, Orthotic/Prosthetic Management ,Self-Care/Home Management, Sensory Integration,Soft Tissue Mobilization,Taping, Therapeutic Activities, Therapeutic Exercises Other Therapeutic Interventions No modalities due to PMH of cancer Other Referrals/Consults Referrals/Consults Recommended 01/18/24: discussed call Dr Mckenzie's office about R lateral ribcage discomfort/pain having approx T10 region. Next Visit Focus/Plan Next Note Type Treatment Note Next Visit Plan Cont with wall periscapular W< >Y. Progress periscap strength and postural exercises. Cervical lateral flex, rot, and retract w/ band. cont with thoracic mobility, stretching , active ROM and maintaining mobility. Functional rotation and lateral flexion, add gentle UE mobility with head motions POC: cervical spine manual soft tissue, stretching R side , postural re-education elli in standing review standing chin tuck, wall posture and add periscapular activation, Continue contract-relax isometrics of cervical spine to reduce R sided tension. Use water-based lotion for STM no modalities Assess CS AROM rotation
--- NOTE | 2024-02-28 10:32 | PT.OTN ---
Current Diagnoses Squamous cell carcinoma of skin of scalp and neck (02/28/24) Trigeminal neuralgia (02/28/24) Stiffness of unspecified joint, not elsewhere classified (02/28/24) Other lack of coordination (02/28/24) Other symptoms and signs involving the musculoskeletal system (02/28/24) Weakness (02/28/24) Physical Therapy Treatment Note PT-OP-A Visit Information Start: 12/06/23 08:58 Freq: Status: Active Protocol: Document 02/28/24 09:48 NM (Rec: 02/28/24 10:32 NM [id number]) Out-Patient Physical Therapy Visit Information Visit Information Visit Type Progress Note Visit Start Time 09:49 Visit Stop Time 10:30 Visit Number 14 Evaluation Information Evaluation Date 12/06/23 Precautions Precautions Hx of skin cancer of head/neck , 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 He recently finished proton therapy treatment due to tumor in his neck on 10/08/23. Pt began work up for cancer around February 2023, diagnosed in May- June 2023. He had had squamous skin cancer of R jaw; PMH of same type of skin cancer in R ear 5 years ago. He has had both chemotherapy and proton radiation, 34 sessions total. He states that the tumor is gone but the muscle tightness is still alot , which causes discomfort. He states that he muscles are starting to relax but still feels tight. R eyelid is drooping; states did not prior to treatment. Had not noticed changes in UE strength or pupils. He is currently going to speech therapy. Pt has also done a barium swallow, and has gone to an ENT for further assessment. 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 Pt has been in the ER 3x during previous treatment due to dehydration. He has CT scan on 12/28/23 (3 month follow up with imaging), 01/04/24 follow up with radiologist/oncologist . He has mild numbness along R jaw, R tongue. Voice is very hoarse. Pt has occasionally had headaches, 2/10 pain (over R side of head, then up/over forehead); he gets headaches every day. Pt's sight and hearing is diminished. He had cetuximab for chemo. In May 2023, pt had R knee surgery due to torn quad tendon, which influences balance and gait; unable to straighten leg completely. Prior Treatments and Tests Previous PT for R shoulder in late 2022; pt reports no change, still bothers him since ending PT Current Functional Impairments (Reported) Functional Limitations- ADL's turning head limited and painful, may be affecting chewing and speech Functional Limitations- Other reports no difficulty with sleeping PT-OP-C Subjective Start: 12/06/23 08:58 Freq: Status: Active Protocol: Document 02/28/24 09:48 NM (Rec: 02/28/24 10:32 NM [id number]) OP-PT Subjective Patient Comments Patient Comments Pt reports sore after last session with exercises at wall PT-OP-F Manual Assessment Start: 12/06/23 08:58 Freq: Status: Active Protocol: Document 12/06/23 08:59 NM (Rec: 12/06/23 09:47 NM [id number]) Manual Assessments Soft Tissue Assessment Soft Tissue Mobility Assessment Increased restriction and hypertrophy of R SCM, paraspinals, deep neck flexors . Tightness of (R>L) levator scapula, SCM, pec, and upper trapezius. Atrophy of R upper trapezius, scalenes, rotator cuff musculature pec length: 13 cm L pec, 16 cm R pec (measured elbows from behind head to table) Joint Mobility Assessment Joint Mobility Assessment Decreased R shoulder mobility and scapular mobility. Limitations and hypomobility of cervical spine, increased rotation during supine PROM rotation and lateral flexion than seated AROM Other Manual Assessments Other Manual Assessments Cranial nerve testing: tongue deviates toward R side, tongue paresis, difficulty swallowing, decreased sensation along R tongue. Notable drooping of R eyelid, but pupils equally round and reactive to light. PT-OP-G Mobility & Gait Start: 12/06/23 08:58 Freq: Status: Active Protocol: Document 12/06/23 08:59 NM (Rec: 12/06/23 10:53 NM [id number]) OP Gait Assessment Gait Gait Assistance Required: Independent Distance (Feet) 150 Gait Deviations General Gait Pattern Antalgic Comments Gait Comments Decreased time in R stance, unable to fully extend R knee and demos signs of quad weakness on R side PT-OP-H Neuro Start: 12/06/23 08:58 Freq: Status: Active Protocol: Document 12/06/23 08:59 NM (Rec: 12/06/23 09:47 NM [id number]) Sensation Evaluation Comments Summary Comments BUE intact to light touch sensation. Less sensitivity to light touch sensation along R lower face (V2-V3 distribution) and neck (C3-C4) dermatomes Deep Tendon Reflex & Clonus Assessment Deep Tendon Reflex Bilateral Brachioradialis Deep Tendon Reflex 1+ Diminished Bilateral Bicep Deep Tendon Reflex 1+ Diminished PT-OP-J Posture/Palpation/Skin Start: 12/06/23 08:58 Freq: Status: Active Protocol: Document 12/06/23 08:59 NM (Rec: 12/06/23 09:47 NM [id number]) Posture Evaluation Position Standing Head/C-Spine Posture Forward Head Shoulder Posture (L) Rounded,(R) Rounded,(L) Forward,(R) Forward Scapula Posture (L) Elevated,(R) Elevated,(R) Tipped Arm Posture (L) Internally Rotated,(R) Internally Rotated Comments Posture Comments fwd head Palpation Assessment Location neck Palpation Details Increased tone and restrictions of R sided: SCM, scalenes, levator scapula, paraspinals, pec Atrophy noted of R upper trap, scalenes, rotator cuff Trigger point or possible palpable knot of R superior- medial angle near levator scapula distal insertion, tender to palpable and tight Skin Assessment Other Assessments Skin Assessment Comments Redness and appearance of kenney related to radiation therapy along R neck and shoulder. Skin is flat drier on R side than L side PT-OP-K Range of Motion Start: 12/06/23 08:58 Freq: Status: Active Protocol: Document 02/28/24 09:48 NM (Rec: 02/28/24 10:32 NM [id number]) Cervical Spine Range of Motion Cervical Spine Active Degrees Flexion 55 Extension 45 Rotation Left 65 Rotation Right 62 Lateral Flexion Left 30 Lateral Flexion Right 40 Comments discomfort w/ ext; tightness with L LF, R rot Decreased thoracic rotation, ext 01/25/24: 55 deg flex, 40 deg ext, 20 deg LF L, 30 deg L, 60 deg R, 65 deg L, 02/28/24: 55 deg flex, 45 deg ext, 30 deg L LF, 40 deg R LF, 65 deg L, 62 deg R PT-OP-L Special Tests Start: 12/06/23 08:58 Freq: Status: Active Protocol: Document 12/13/23 07:30 NM (Rec: 12/13/23 12:48 NM [id number]) Special Tests Cervical Spine Special Tests Vertebral Artery Test Results - PT-OP-M Strength Start: 12/06/23 08:58 Freq: Status: Active Protocol: Document 12/06/23 08:59 NM (Rec: 12/06/23 09:47 NM [id number]) Cervical Spine Strength Cervical Spine Manual Muscle Testing Flexion (C1-2) 4 Good Extension 4 Good Rotation Left 3+ Fair+ Rotation Right 3+ Fair+ Lateral Flexion Left (C3) 3+ Fair+ Lateral Flexion Right (C3) 3+ Fair+ Comments mild pain with resisted rotation and lateral flexion PT-OP-Q Treatments Start: 12/06/23 08:58 Freq: Status: Active Protocol: Document 02/28/24 09:48 NM (Rec: 02/28/24 10:32 NM [id number]) Therapeutic Exercises Standing Exercises wall periscapulars Standing Exercise Name 1. B ER w/ band (HEP), 2. field goals, 3. W<>Y lift offs (HEP) Side bilateral Reps/Minutes 1. 15, 2. 15, 3. 2x5 Comments pain free but challenging for pt; cued form at CS mid row w/ CS Rot Standing Exercise Name 1. opp CS rot w/ row, 2. row w / L lateral flex only Side bilateral Resistance lvl 3 band Equipment Used w/ cervical retraction Reps/Minutes 10 w/ 2 hold Comments pain free; reports crackling but states feels good modified TS mobility Standing Exercise Name 1. open book w/ band, 2. rainbow Side bilateral Resistance 1. lvl 1 band, 2. AROM Equipment Used at wall Reps/Minutes 10 ea Comments cued limit hip motion, CS rotation, eyes follow hands Manual Therapy Treatment Consent Patient gave verbal consent for manual Yes treatment Soft Tissue Mobilization cervical spine Body Location R UT, LS, SCM, scalenes, subclavius, pec Mobilization Type Rolling,Sustained Pressure, Other Intensity/Depth Moderate Body Position Supine Comments Less tightness tension R SCM, scalene and improved L SB & L rotation. Thickness noted along R SCM, more prominent today PT-OP-T Assessment and Plan Start: 12/06/23 08:58 Freq: Status: Active Protocol: Document 02/28/24 09:48 NM (Rec: 02/28/24 10:32 NM [id number]) Physical Therapy Assessment Goals Four Impairment HEP compliance Short Term Goal (STG) Pt will be issued and educated on HEP, including compliance at least 3x/wk in order to maximize progression with PT 01/25/24: pt compliant with HEP until back pain started 1 week ago, has not performed since STG Duration 5 weeks Alf Goal (LTG) Pt will report compliance with HEP at least 3x/wk in order to maintain progress made during PT and to promote independence at discharge LTG Duration 8 weeks 03/24/24- GOAL UPDATED Three Impairment R cervical spine rotation 45 deg Alf Goal (LTG) Pt will improve R rotation AROM to at least 60 deg in order to demonstrate improved mobility for visual scanning 01/25/24: 60 deg R rot LTG Duration 10 weeks MET 01/24/24 Two Impairment L cervical spine lateral flexion 20 deg and painful Alf Goal (LTG) Pt will improve L lateral flexion AROM to within 5 deg of R lateral flexion AROM without increase in baseline pain to demonstrate improved tissue length 01/25/24: 20 deg L lateral flexion pre-manual (30 post manual) 02/08/24: pre-manual 30 deg R lateral flex, 25 deg L lateral flex 02/28/24: 30 deg L, 40 deg R LTG Duration 10 weeks PROGRESSING; UPDATED 8 weeks 03/24/24 One Impairment L cervical spine Rotation 42 deg Alf Goal (LTG) Pt will improve L rotation AROM to at least 60 deg in order to demonstrate improved mobility for visual scanning 01/25/24: 65 deg L rot LTG Duration 10 weeks MET 01/25/24 Assessment Summary Assessment Pt tolerated session well. Continued to address periscapular strength with cervical spine muscle length through manual and exercise. Pt continues to demonstrate improvements in R SCM length. currently has 30 deg L lateral flex and 40 deg R lateral flex. W/Y lift offs to address rotator cuff and lower trap force couple are most challenging. Still needs cues for form with thoracic mobility; able to progress from AROM to resistance band. Cueing needed for correct execution on rows with head motion to limit compensations with trunk. Physical Therapy Plan Frequency and Duration Frequency of Treatment 1-2x/wk Duration of treatment (weeks) 8 Plan of Care Start Date 01/25/24 Plan of Care End Date 03/24/24 Therapeutic Interventions Therapeutic Interventions Balance Training,Gait Training ,Home Exercise Program,Joint Mobilizations,Manual Therapy, Neuromuscular Re-education, Orthotic/Prosthetic Management ,Self-Care/Home Management, Sensory Integration,Soft Tissue Mobilization,Taping, Therapeutic Activities, Therapeutic Exercises Other Therapeutic Interventions No modalities due to PMH of cancer Other Referrals/Consults Referrals/Consults Recommended 01/18/24: discussed call Dr Mckenzie's office about R lateral ribcage discomfort/pain having approx T10 region. Next Visit Focus/Plan Next Note Type Treatment Note Next Visit Plan Trial raises and overhead press w/ chin tuck small resistance. Cont with wall periscapular W<>Y, can add band-check form and see if progress reps. Progress periscap strength and postural exercises- add lat pull down. Cervical lateral flex, rot, and retract w/ band. cont with thoracic mobility, stretching , active ROM and maintaining mobility. Functional rotation and lateral flexion, add gentle UE mobility with head motions POC: cervical spine manual soft tissue, stretching R side , postural re-education elli in standing review standing chin tuck, wall posture and add periscapular activation, Continue contract-relax isometrics of cervical spine to reduce R sided tension. Use water-based lotion for STM no modalities
--- NOTE | 2024-03-01 10:28 | PT.OTN ---
Current Diagnoses Squamous cell carcinoma of skin of scalp and neck (03/01/24) Trigeminal neuralgia (03/01/24) Stiffness of unspecified joint, not elsewhere classified (03/01/24) Other lack of coordination (03/01/24) Other symptoms and signs involving the musculoskeletal system (03/01/24) Weakness (03/01/24) Physical Therapy Treatment Note PT-OP-A Visit Information Start: 12/06/23 08:58 Freq: Status: Active Protocol: Document 03/01/24 09:50 SP (Rec: 03/01/24 10:40 SP [id number]) Out-Patient Physical Therapy Visit Information Visit Information Visit Type Treatment Note Visit Start Time 09:50 Visit Stop Time 10:28 Visit Number (05/08 with PN) 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 1 Evaluation Information Evaluation Date 12/06/23 Precautions Precautions Hx of skin cancer of head/neck , 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 He recently finished proton therapy treatment due to tumor in his neck on 10/08/23. Pt began work up for cancer around February 2023, diagnosed in May- June 2023. He had had squamous skin cancer of R jaw; PMH of same type of skin cancer in R ear 5 years ago. He has had both chemotherapy and proton radiation, 34 sessions total. He states that the tumor is gone but the muscle tightness is still alot , which causes discomfort. He states that he muscles are starting to relax but still feels tight. R eyelid is drooping; states did not prior to treatment. Had not noticed changes in UE strength or pupils. He is currently going to speech therapy. Pt has also done a barium swallow, and has gone to an ENT for further assessment. 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 Pt has been in the ER 3x during previous treatment due to dehydration. He has CT scan on 12/28/23 (3 month follow up with imaging), 01/04/24 follow up with radiologist/oncologist . He has mild numbness along R jaw, R tongue. Voice is very hoarse. Pt has occasionally had headaches, 2/10 pain (over R side of head, then up/over forehead); he gets headaches every day. Pt's sight and hearing is diminished. He had cetuximab for chemo. In May 2023, pt had R knee surgery due to torn quad tendon, which influences balance and gait; unable to straighten leg completely. Prior Treatments and Tests Previous PT for R shoulder in late 2022; pt reports no change, still bothers him since ending PT Current Functional Impairments (Reported) Functional Limitations- ADL's turning head limited and painful, may be affecting chewing and speech Functional Limitations- Other reports no difficulty with sleeping PT-OP-C Subjective Start: 12/06/23 08:58 Freq: Status: Active Protocol: Document 03/01/24 09:50 SP (Rec: 03/01/24 10:40 SP [id number]) OP-PT Subjective Patient Comments Patient Comments Pt reports tightness getting less and less on R lateral neck. Was little sore after last tx. did some new exercises. Feels finishing up the next few appts and will e ready to continue on own. Dr Mckenzie appt this Fri. PT-OP-F Manual Assessment Start: 12/06/23 08:58 Freq: Status: Active Protocol: Document 12/06/23 08:59 NM (Rec: 12/06/23 09:47 NM [id number]) Manual Assessments Soft Tissue Assessment Soft Tissue Mobility Assessment Increased restriction and hypertrophy of R SCM, paraspinals, deep neck flexors . Tightness of (R>L) levator scapula, SCM, pec, and upper trapezius. Atrophy of R upper trapezius, scalenes, rotator cuff musculature pec length: 13 cm L pec, 16 cm R pec (measured elbows from behind head to table) Joint Mobility Assessment Joint Mobility Assessment Decreased R shoulder mobility and scapular mobility. Limitations and hypomobility of cervical spine, increased rotation during supine PROM rotation and lateral flexion than seated AROM Other Manual Assessments Other Manual Assessments Cranial nerve testing: tongue deviates toward R side, tongue paresis, difficulty swallowing, decreased sensation along R tongue. Notable drooping of R eyelid, but pupils equally round and reactive to light. PT-OP-G Mobility & Gait Start: 12/06/23 08:58 Freq: Status: Active Protocol: Document 12/06/23 08:59 NM (Rec: 12/06/23 10:53 NM [id number]) OP Gait Assessment Gait Gait Assistance Required: Independent Distance (Feet) 150 Gait Deviations General Gait Pattern Antalgic Comments Gait Comments Decreased time in R stance, unable to fully extend R knee and demos signs of quad weakness on R side PT-OP-H Neuro Start: 12/06/23 08:58 Freq: Status: Active Protocol: Document 12/06/23 08:59 NM (Rec: 12/06/23 09:47 NM [id number]) Sensation Evaluation Comments Summary Comments BUE intact to light touch sensation. Less sensitivity to light touch sensation along R lower face (V2-V3 distribution) and neck (C3-C4) dermatomes Deep Tendon Reflex & Clonus Assessment Deep Tendon Reflex Bilateral Brachioradialis Deep Tendon Reflex 1+ Diminished Bilateral Bicep Deep Tendon Reflex 1+ Diminished PT-OP-J Posture/Palpation/Skin Start: 12/06/23 08:58 Freq: Status: Active Protocol: Document 12/06/23 08:59 NM (Rec: 12/06/23 09:47 NM [id number]) Posture Evaluation Position Standing Head/C-Spine Posture Forward Head Shoulder Posture (L) Rounded,(R) Rounded,(L) Forward,(R) Forward Scapula Posture (L) Elevated,(R) Elevated,(R) Tipped Arm Posture (L) Internally Rotated,(R) Internally Rotated Comments Posture Comments fwd head Palpation Assessment Location neck Palpation Details Increased tone and restrictions of R sided: SCM, scalenes, levator scapula, paraspinals, pec Atrophy noted of R upper trap, scalenes, rotator cuff Trigger point or possible palpable knot of R superior- medial angle near levator scapula distal insertion, tender to palpable and tight Skin Assessment Other Assessments Skin Assessment Comments Redness and appearance of kenney related to radiation therapy along R neck and shoulder. 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 PT-OP-K Range of Motion Start: 12/06/23 08:58 Freq: Status: Active Protocol: Document 02/28/24 09:48 NM (Rec: 02/28/24 10:32 NM [id number]) Cervical Spine Range of Motion Cervical Spine Active Degrees Flexion 55 Extension 45 Rotation Left 65 Rotation Right 62 Lateral Flexion Left 30 Lateral Flexion Right 40 Comments discomfort w/ ext; tightness with L LF, R rot Decreased thoracic rotation, ext 01/25/24: 55 deg flex, 40 deg ext, 20 deg LF L, 30 deg L, 60 deg R, 65 deg L, 02/28/24: 55 deg flex, 45 deg ext, 30 deg L LF, 40 deg R LF, 65 deg L, 62 deg R PT-OP-L Special Tests Start: 12/06/23 08:58 Freq: Status: Active Protocol: Document 12/13/23 07:30 NM (Rec: 12/13/23 12:48 NM [id number]) Special Tests Cervical Spine Special Tests Vertebral Artery Test Results - PT-OP-M Strength Start: 12/06/23 08:58 Freq: Status: Active Protocol: Document 12/06/23 08:59 NM (Rec: 12/06/23 09:47 NM [id number]) Cervical Spine Strength Cervical Spine Manual Muscle Testing Flexion (C1-2) 4 Good Extension 4 Good Rotation Left 3+ Fair+ Rotation Right 3+ Fair+ Lateral Flexion Left (C3) 3+ Fair+ Lateral Flexion Right (C3) 3+ Fair+ Comments mild pain with resisted rotation and lateral flexion PT-OP-Q Treatments Start: 12/06/23 08:58 Freq: Status: Active Protocol: Document 03/01/24 09:50 SP (Rec: 03/01/24 10:40 SP [id number]) Therapeutic Exercises Standing Exercises OH raises Standing Exercise Name initiated in PT: punch over head Side bilateral Resistance 2# DB Equipment Used front mirror Reps/Minutes 2x10 alternating Comments cued DB over shoulder, CS neutral alignment wall periscapulars Standing Exercise Name 1. B ER 2. field goals, 3. W<> Y lift offs (HEP) Side bilateral Reps/Minutes 1. 15 TB #1, 2. 15 Tb #1, 3. 2x5 Comments good muscle tiring effort, cued form at CS mid row w/ CS Rot Standing Exercise Name 1. opp CS rot w/ row, 2. row w / L lateral flex only Side bilateral Resistance lvl 3 band Equipment Used w/ cervical retraction Reps/Minutes 10 w/ 2 hold Comments pain free; reports crackling but states feels good modified TS mobility Standing Exercise Name 1. open book w/ band, 2. rainbow Side bilateral Resistance 1. lvl 1 band, 2. AROM Equipment Used at wall Reps/Minutes 10 ea Comments cued limit hip motion, CS rotation, eyes follow hands Manual Therapy Treatment Consent Patient gave verbal consent for manual Yes treatment Soft Tissue Mobilization cervical spine Body Location R UT, LS, SCM, scalenes, subclavius, pec Mobilization Type Myofascial Release,Rolling, Sustained Pressure,Other Intensity/Depth Moderate Body Position Supine Comments MF glides, MWM head turns: Less tightness tension R SCM, scalene and improved L SB & L rotation. Thickness noted along R SCM, little less prominent today PT-OP-T Assessment and Plan Start: 12/06/23 08:58 Freq: Status: Active Protocol: Document 03/01/24 09:50 SP (Rec: 03/01/24 10:40 SP [id number]) Physical Therapy Assessment Goals Four Impairment HEP compliance Short Term Goal (STG) Pt will be issued and educated on HEP, including compliance at least 3x/wk in order to maximize progression with PT 01/25/24: pt compliant with HEP until back pain started 1 week ago, has not performed since STG Duration 5 weeks Program Admin Goal (LTG) Pt will report compliance with HEP at least 3x/wk in order to maintain progress made during PT and to promote independence at discharge LTG Duration 8 weeks 03/24/24- GOAL UPDATED Three Impairment R cervical spine rotation 45 deg Halfway Goal (LTG) Pt will improve R rotation AROM to at least 60 deg in order to demonstrate improved mobility for visual scanning 01/25/24: 60 deg R rot LTG Duration 10 weeks MET 01/24/24 Two Impairment L cervical spine lateral flexion 20 deg and painful Halfway Goal (LTG) Pt will improve L lateral flexion AROM to within 5 deg of R lateral flexion AROM without increase in baseline pain to demonstrate improved tissue length 01/25/24: 20 deg L lateral flexion pre-manual (30 post manual) 02/08/24: pre-manual 30 deg R lateral flex, 25 deg L lateral flex 02/28/24: 30 deg L, 40 deg R LTG Duration 10 weeks PROGRESSING; UPDATED 8 weeks 03/24/24 One Impairment L cervical spine Rotation 42 deg Halfway Goal (LTG) Pt will improve L rotation AROM to at least 60 deg in order to demonstrate improved mobility for visual scanning 01/25/24: 65 deg L rot LTG Duration 10 weeks MET 01/25/24 Assessment Summary Assessment Pt tolerated session well. Improved CS L rotation and SB post manual to Scalene and SCM lengthening. Continued cues for CS retraction neutral during ther ex. Continue progressing periscapular strengthening improved postural alignment facing use of wall. He demonstrates good effort free standing improved reduction UT compensation single arm over head raises vs double front of mirror for self correction awareness. Physical Therapy Plan Frequency and Duration Frequency of Treatment 1-2x/wk Duration of treatment (weeks) 8 Plan of Care Start Date 01/25/24 Plan of Care End Date 03/24/24 Therapeutic Interventions Therapeutic Interventions Balance Training,Gait Training ,Home Exercise Program,Joint Mobilizations,Manual Therapy, Neuromuscular Re-education, Orthotic/Prosthetic Management ,Self-Care/Home Management, Sensory Integration,Soft Tissue Mobilization,Taping, Therapeutic Activities, Therapeutic Exercises Other Therapeutic Interventions No modalities due to PMH of cancer Other Referrals/Consults Referrals/Consults Recommended 01/18/24: discussed call Dr Mckenzie's office about R lateral ribcage discomfort/pain having approx T10 region. Next Visit Focus/Plan Next Note Type Treatment Note Next Visit Plan Next tx: recheck overhead press w/ chin tuck small resistance before add to HEP Manual to R scap and SCM. POC: Cont with wall periscapular W<>Y, can add band-check form and see if progress reps. Progress periscap strength and postural exercises- add lat pull down. Cervical lateral flex, rot, and retract w/ band. cont with thoracic mobility, stretching , active ROM and maintaining mobility. Functional rotation and lateral flexion, add gentle UE mobility with head motions POC: cervical spine manual soft tissue, stretching R side , postural re-education elli in standing review standing chin tuck, wall posture and add periscapular activation, Continue contract-relax isometrics of cervical spine to reduce R sided tension. Use water-based lotion for STM no modalities
--- NOTE | 2024-03-06 11:31 | PT.OTN ---
Current Diagnoses Squamous cell carcinoma of skin of scalp and neck (03/06/24) Trigeminal neuralgia (03/06/24) Stiffness of unspecified joint, not elsewhere classified (03/06/24) Other lack of coordination (03/06/24) Other symptoms and signs involving the musculoskeletal system (03/06/24) Weakness (03/06/24) Physical Therapy Treatment Note PT-OP-A Visit Information Start: 12/06/23 08:58 Freq: Status: Active Protocol: Document 03/06/24 10:44 NM (Rec: 03/06/24 11:22 NM [id number]) Out-Patient Physical Therapy Visit Information Visit Information Visit Type Discharge Summary Visit Start Time 10:46 Visit Stop Time 11:29 Visit Number 16 (3 with PN) Number of [employer] Visits 0 Evaluation Information Evaluation Date 12/06/23 Precautions Precautions Hx of skin cancer of head/neck , 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 He recently finished proton therapy treatment due to tumor in his neck on 10/08/23. Pt began work up for cancer around February 2023, diagnosed in May- June 2023. He had had squamous skin cancer of R jaw; PMH of same type of skin cancer in R ear 5 years ago. He has had both chemotherapy and proton radiation, 34 sessions total. He states that the tumor is gone but the muscle tightness is still alot , which causes discomfort. He states that he muscles are starting to relax but still feels tight. R eyelid is drooping; states did not prior to treatment. Had not noticed changes in UE strength or pupils. He is currently going to speech therapy. Pt has also done a barium swallow, and has gone to an ENT for further assessment. 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 Pt has been in the ER 3x during previous treatment due to dehydration. He has CT scan on 12/28/23 (3 month follow up with imaging), 01/04/24 follow up with radiologist/oncologist . He has mild numbness along R jaw, R tongue. Voice is very hoarse. Pt has occasionally had headaches, 2/10 pain (over R side of head, then up/over forehead); he gets headaches every day. Pt's sight and hearing is diminished. He had cetuximab for chemo. In May 2023, pt had R knee surgery due to torn quad tendon, which influences balance and gait; unable to straighten leg completely. Prior Treatments and Tests Previous PT for R shoulder in late 2022; pt reports no change, still bothers him since ending PT Current Functional Impairments (Reported) Functional Limitations- ADL's turning head limited and painful, may be affecting chewing and speech Functional Limitations- Other reports no difficulty with sleeping PT-OP-C Subjective Start: 12/06/23 08:58 Freq: Status: Active Protocol: Document 03/06/24 10:44 NM (Rec: 03/06/24 11:22 NM [id number]) OP-PT Subjective Patient Comments Patient Comments Pt reports that he followed up with Dr. Mckenzie, had acupuncture for back pain; has helped. His neck is continuing to improve. Pt agrees to discharge from PT following conversation today, as all is improving, no limitations. PT-OP-F Manual Assessment Start: 12/06/23 08:58 Freq: Status: Active Protocol: Document 12/06/23 08:59 NM (Rec: 12/06/23 09:47 NM [id number]) Manual Assessments Soft Tissue Assessment Soft Tissue Mobility Assessment Increased restriction and hypertrophy of R SCM, paraspinals, deep neck flexors . Tightness of (R>L) levator scapula, SCM, pec, and upper trapezius. Atrophy of R upper trapezius, scalenes, rotator cuff musculature pec length: 13 cm L pec, 16 cm R pec (measured elbows from behind head to table) Joint Mobility Assessment Joint Mobility Assessment Decreased R shoulder mobility and scapular mobility. Limitations and hypomobility of cervical spine, increased rotation during supine PROM rotation and lateral flexion than seated AROM Other Manual Assessments Other Manual Assessments Cranial nerve testing: tongue deviates toward R side, tongue paresis, difficulty swallowing, decreased sensation along R tongue. Notable drooping of R eyelid, but pupils equally round and reactive to light. PT-OP-G Mobility & Gait Start: 12/06/23 08:58 Freq: Status: Active Protocol: Document 12/06/23 08:59 NM (Rec: 12/06/23 10:53 NM [id number]) OP Gait Assessment Gait Gait Assistance Required: Independent Distance (Feet) 150 Gait Deviations General Gait Pattern Antalgic Comments Gait Comments Decreased time in R stance, unable to fully extend R knee and demos signs of quad weakness on R side PT-OP-H Neuro Start: 12/06/23 08:58 Freq: Status: Active Protocol: Document 12/06/23 08:59 NM (Rec: 12/06/23 09:47 NM [id number]) Sensation Evaluation Comments Summary Comments BUE intact to light touch sensation. Less sensitivity to light touch sensation along R lower face (V2-V3 distribution) and neck (C3-C4) dermatomes Deep Tendon Reflex & Clonus Assessment Deep Tendon Reflex Bilateral Brachioradialis Deep Tendon Reflex 1+ Diminished Bilateral Bicep Deep Tendon Reflex 1+ Diminished PT-OP-J Posture/Palpation/Skin Start: 12/06/23 08:58 Freq: Status: Active Protocol: Document 12/06/23 08:59 NM (Rec: 12/06/23 09:47 NM [id number]) Posture Evaluation Position Standing Head/C-Spine Posture Forward Head Shoulder Posture (L) Rounded,(R) Rounded,(L) Forward,(R) Forward Scapula Posture (L) Elevated,(R) Elevated,(R) Tipped Arm Posture (L) Internally Rotated,(R) Internally Rotated Comments Posture Comments fwd head Palpation Assessment Location neck Palpation Details Increased tone and restrictions of R sided: SCM, scalenes, levator scapula, paraspinals, pec Atrophy noted of R upper trap, scalenes, rotator cuff Trigger point or possible palpable knot of R superior- medial angle near levator scapula distal insertion, tender to palpable and tight Skin Assessment Other Assessments Skin Assessment Comments Redness and appearance of kenney related to radiation therapy along R neck and shoulder. 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 PT-OP-K Range of Motion Start: 12/06/23 08:58 Freq: Status: Active Protocol: Document 03/06/24 10:44 NM (Rec: 03/06/24 11:23 NM [id number]) Cervical Spine Range of Motion Cervical Spine Active Degrees Flexion 55 Extension 45 Rotation Left 65 Rotation Right 62 Lateral Flexion Left 35 Lateral Flexion Right 35 Comments discomfort w/ ext; tightness with L LF, R rot Decreased thoracic rotation, ext 01/25/24: 55 deg flex, 40 deg ext, 20 deg LF L, 30 deg L, 60 deg R, 65 deg L, 02/28/24: 55 deg flex, 45 deg ext, 30 deg L LF, 40 deg R LF, 65 deg L, 62 deg R PT-OP-L Special Tests Start: 12/06/23 08:58 Freq: Status: Active Protocol: Document 12/13/23 07:30 NM (Rec: 12/13/23 12:48 NM [id number]) Special Tests Cervical Spine Special Tests Vertebral Artery Test Results - PT-OP-M Strength Start: 12/06/23 08:58 Freq: Status: Active Protocol: Document 03/06/24 10:44 NM (Rec: 03/06/24 11:23 NM [id number]) Cervical Spine Strength Cervical Spine Manual Muscle Testing Flexion (C1-2) 4 Good Extension 4 Good Rotation Left 4 Good Rotation Right 4 Good Lateral Flexion Left (C3) 4 Good Lateral Flexion Right (C3) 4 Good Comments mild pain with resisted rotation and lateral flexion PT-OP-Q Treatments Start: 12/06/23 08:58 Freq: Status: Active Protocol: Document 03/06/24 10:44 NM (Rec: 03/06/24 11:22 NM [id number]) Therapeutic Exercises Sidelying Exercises open book Side bilateral Reps/Minutes x10 reps each side /c Head turn. cued breath end range rib mobility Comments cues for set up, scapular ROM, TS rotation pnfree range Sitting Exercises cervical spine stretching Sitting Exercise Name 1. B SCM stretch w/ flex, 2. SCM, 3. scalenes, 4. UT, 5. LS Side right Reps/Minutes 1. 30, 2-6. 2x30 ea Comments pain free Standing Exercises corner stretch Standing Exercise Name 1. 90/90, 2. low pec stretch Side bilateral Equipment Used staggered step forward Reps/Minutes 2x30 ea rows Standing Exercise Name 1. low row, 2. mid row, 3. high row Resistance lvl 3 band Reps/Minutes 20 ea Comments issued level 4 band for progression at home Manual Therapy Treatment Consent Patient gave verbal consent for manual Yes treatment Soft Tissue Mobilization cervical spine Body Location R UT, LS, SCM, scalenes, subclavius, pec Mobilization Type Myofascial Release,Rolling, Sustained Pressure,Other Intensity/Depth Moderate Body Position Supine Comments Monitored for pain, performed with MWM via lateral flexion and rotation PT-OP-T Assessment and Plan Start: 12/06/23 08:58 Freq: Status: Active Protocol: Document 03/06/24 10:44 NM (Rec: 03/06/24 11:22 NM [id number]) Physical Therapy Assessment Goals Four Impairment HEP compliance Short Term Goal (STG) Pt will be issued and educated on HEP, including compliance at least 3x/wk in order to maximize progression with PT 01/25/24: pt compliant with HEP until back pain started 1 week ago, has not performed since STG Duration 5 weeks Correction Goal (LTG) Pt will report compliance with HEP at least 3x/wk in order to maintain progress made during PT and to promote independence at discharge 03/06/24: pt performing HEP 3- 5x/wk LTG Duration 8 weeks 03/24/24- GOAL UPDATED -MET Three Impairment R cervical spine rotation 45 deg Correction Goal (LTG) Pt will improve R rotation AROM to at least 60 deg in order to demonstrate improved mobility for visual scanning 01/25/24: 60 deg R rot LTG Duration 10 weeks MET 01/24/24 Two Impairment L cervical spine lateral flexion 20 deg and painful Prepress Supervisor Goal (LTG) Pt will improve L lateral flexion AROM to within 5 deg of R lateral flexion AROM without increase in baseline pain to demonstrate improved tissue length 01/25/24: 20 deg L lateral flexion pre-manual (30 post manual) 02/08/24: pre-manual 30 deg R lateral flex, 25 deg L lateral flex 02/28/24: 30 deg L, 40 deg R 03/06/24: 35 deg B lateral flexion, pain free LTG Duration 10 weeks PROGRESSING; UPDATED 8 weeks 03/24/24 MET One Impairment L cervical spine Rotation 42 deg Prepress Supervisor Goal (LTG) Pt will improve L rotation AROM to at least 60 deg in order to demonstrate improved mobility for visual scanning 01/25/24: 65 deg L rot LTG Duration 10 weeks MET 01/25/24 Progress Towards Goals Progress Towards Goals Goals Met Progress Comments all goals met Assessment Summary Assessment PT and pt discussed discharge to maintenance HEP as pt has met all goals today. PT and pt in agreement. Emphasis on creating maintenance program for continued R SCM lengthening and periscapular strengthening. Prn cueing needed for stretching set up to limit compensation with shoulder, better response with cueing needed for tension at RUE. Initiated standing pec stretch in corner, good feedback for changed position. Progressed to periscapular strengthening with band, issued level 4 band for home progression. Physical Therapy Plan Frequency and Duration Frequency of Treatment 1-2x/wk Duration of treatment (weeks) 8 Plan of Care Start Date 01/25/24 Plan of Care End Date 03/24/24 Therapeutic Interventions Therapeutic Interventions Balance Training,Gait Training ,Home Exercise Program,Joint Mobilizations,Manual Therapy, Neuromuscular Re-education, Orthotic/Prosthetic Management ,Self-Care/Home Management, Sensory Integration,Soft Tissue Mobilization,Taping, Therapeutic Activities, Therapeutic Exercises Other Therapeutic Interventions No modalities due to PMH of cancer Other Referrals/Consults Referrals/Consults Recommended 01/18/24: discussed call Dr Mckenzie's office about R lateral ribcage discomfort/pain having approx T10 region. Discharge Physical Therapy Discharge Reasons Goals Met Discharge Comments Pt has met all PT goals. PT and pt discussed discharge from PT today to maintenance program. PT and pt in agreement. PT educated pt on performing maintenance program at least 3x/wk for 6 months for continued flexibility; educated to follow up with PCP if symptoms in neck return, change, or worsen. Pt verbalizes understanding and will be discharged to maintenance program. Next Visit Focus/Plan Next Note Type Discharge Summary Next Visit Plan discharge from PT
== END 2024-03-15 15:12 | disposition home or self-care (01) ==
LOC: PHYS 10:45
PROVIDERS: Family Provider Family Medicine; PCP Family Medicine; Referring Provider Family Medicine; Visit Provider Family Medicine
DX: C44.42 Squamous cell carcinoma of skin of scalp and neck (principal); G50.0 Trigeminal neuralgia; R29.898 Other symptoms and signs involving the musculoskeletal system; M25.60 Stiffness of unspecified joint, not elsewhere classified; R53.1 Weakness; R27.8 Other lack of coordination
CPT/HCPCS: 97110; 97140; 97161

== ENCOUNTER → 2024-03-31 10:37 | Outpatient (CLI) | payer MEDICARE, OTHER, SELFPAY ==
[2023-09-08 16:24] VITALS: PULSE 67; RESP 13; O2SAT 92; BMI 23.0
[2024-03-31 11:03] LABS: Estimated Glomerular Filt Rate > 60 mL/min (>60)
--- NOTE | 2024-03-31 11:35 | DI.CT.S_ITS ---
PROCEDURE: CT SOFT TISSUE NECK W CON INDICATIONS: HISTORY OF HEAD/NECK CANCER/LAB EO TECHNIQUE: After the administration of intravenous contrast, 3.0 mm axial sections acquired from the sella to the aortic arch. Additional oblique axial 3.0 mm sections acquired through the pharynx. 3 mm thick coronal and sagittal reformats were generated. For radiation dose reduction, the following was used: automated exposure control. COMPARISON: [facility], CT, CT SOFT TISSUE NECK W CON, 12/27/2023, 10:27. FINDINGS: Image quality: Excellent. Lymph nodes: Decreased size of right 2A central necrotic mass measuring approximately 2.1 x 1.3 cm, previously 2.7 x 1.8 cm. Vessels: Visualized vasculature appears patent. Neck spaces: Again seen fatty atrophy of the right side of the tongue. Prominence of the right base of the tongue is likely secondary to muscular atrophy. Post treatment changes within the right side of the neck with mild skin thickening, subcutaneous stranding and thickening of the platysma. Glands: The parotid and submandibular glands appear normal. Thyroid gland demonstrates no significant abnormality.. Miscellaneous: Visualized brain and orbits appear normal. Bilateral lens replacements. Lung apices appear clear. Prominent mediastinal lymph nodes are partially visualized including a partially visualized subcarinal lymph node measuring at least 1.5 cm in short axis. Superficial soft tissues appear normal. Bones: No suspicious bony lesions. Multilevel degenerative changes of the spine. Visualized sinuses and mastoids appear unremarkable. IMPRESSION: Decreased size of right 2A centrally necrotic mass/lymph node. No enlarged cervical lymph nodes are identified. Partially visualized prominent mediastinal lymph nodes including a partially visualized subcarinal lymph node measuring at least 1.5 cm in short axis. Consider dedicated CT chest for further evaluation. Again seen fatty atrophy of the right aspect of the tongue. There is asymmetric prominence of the right side of the tongue base extending posteriorly. This is likely secondary to denervation. Superimposed mass is felt to be less likely. Recommend correlation with direct visualization as clinically indicated. Dictated by: Brendan Burnette M.D. on 03/31/2024 at 15:50 Approved by: Brendan Burnette M.D. on 03/31/2024 at 16:16
== END ==
PROVIDERS: Radiology Diagnostic Radiology; Family Provider Family Medicine; PCP Family Medicine
DX: K14.8 Other diseases of tongue (principal); J44.9 Chronic obstructive pulmonary disease, unspecified; R59.0 Localized enlarged lymph nodes; Z85.89 Personal history of malignant neoplasm of other organs and systems
CPT/HCPCS: 36415; 70491; 82565; Q9967

== ENCOUNTER → 2024-04-04 11:28 | Outpatient (CLI) | payer MEDICARE, OTHER, SELFPAY ==
[2023-09-08 16:24] VITALS: PULSE 67; RESP 13; O2SAT 92; BMI 23.0
--- NOTE | 2024-04-04 11:34 | DI.RAD.S_ITS ---
PROCEDURE: XR CHEST 2V INDICATIONS: Back Pain TECHNIQUE: 2 views of the chest were acquired. COMPARISON: [facility], CR, XR CHEST 1V, 09/03/2023, 11:55. FINDINGS: Surgical changes and devices: None. Lungs and pleura: Biapical pleural plaquing. Coarse interstitial markings. Possible opacity at both lung bases versus chronic fibrotic change. No pleural effusion. Mediastinum: Mediastinal contours are normal. Heart size is normal. Bones and chest wall: No suspicious bony abnormalities. Soft tissues appear unremarkable. IMPRESSION: Bibasilar opacities versus chronic fibrotic change. No pleural effusion. Dictated by: Nikia Chen M.D. on 04/04/2024 at 20:36 Approved by: Nikia Chen M.D. on 04/04/2024 at 20:38
== END ==
PROVIDERS: Family Provider Family Medicine; PCP Family Medicine; Referring Provider Family Medicine; Visit Provider Family Medicine
DX: M99.02 Segmental and somatic dysfunction of thoracic region (principal); R07.81 Pleurodynia; M54.6 Pain in thoracic spine
CPT/HCPCS: 71046

== ENCOUNTER → 2024-04-10 15:05 | Outpatient (CLI) | payer MEDICARE, OTHER, SELFPAY ==
[2023-09-08 16:24] VITALS: PULSE 67; RESP 13; O2SAT 92; BMI 23.0
--- NOTE | 2024-04-10 15:07 | DI.CT.S_ITS ---
PROCEDURE: CT CHEST W CON INDICATIONS: hx of head and neck cancer TECHNIQUE: After the administration of intravenous contrast, 5 mm thick sections acquired from the pulmonary apices to the posterior costophrenic angles. 1 mm axial lung, 5 mm thick coronal and sagittal reformats and 7 mm axial MIP were acquired. For radiation dose reduction, the following was used: automated exposure control, adjustment of mA and/or kV according to patient size. COMPARISON: [facility], [place], PET NECK TO MID THIGH, 06/16/2023, 8:55. [facility], CT, CT SOFT TISSUE NECK W CON, 03/31/2024, 11:50. [facility], CT, CT SOFT TISSUE NECK W CON, 12/27/2023, 10:27. FINDINGS: Image quality: Diagnostic. Lower Neck: No enlarged lymph nodes. Thyroid: No thyroid nodules which require sonographic follow up, per consensus guidelines. Axillae: No enlarged lymph nodes. Chest Wall: Unremarkable. Bones: New pathologic fracture caused by a soft tissue mass within the T9 vertebral body, with mild vertebral body height loss. No soft tissue involvement within the spinal canal. Lungs and Pleura: Basilar predominant peripheral reticulation with subpleural involvement. Early honeycombing is suggested in the lung bases. Juxtapleural nodules with smooth margins, favoring benign intrapulmonary lymph nodes. No mosaic attenuation. Heart: Heart size is normal. No pericardial effusion. Thoracic Vessels: The aorta and pulmonary arteries demonstrate normal size. Mediastinum and Tiff: Prominent subcarinal lymph node. Prominent number of nonenlarged lymph nodes. Esophagus: There appears to be a growing submucosal mass of the upper esophagus (at the thoracic inlet), measuring 1.9 x 1.4 centimeter (series 2, image 13). Upper Abdomen: Visualized upper abdomen solid organs and bowel loops appear normal. IMPRESSION: Possible submucosal mass of the upper esophagus (at the thoracic inlet) measuring 1.9 x 1.4 centimeters. Findings could represent esophageal malignancy, less likely malignancy associated with the upper, adjacent trachea. Recommend GI referral for endoscopic evaluation/EUS. New pathologic fracture through the T9 vertebral body, with mild vertebral body height loss. There is soft tissue within this vertebral body, indicating likely metastatic disease, less likely plasmocytoma/MBS. Tissue sampling with CT guidance could be considered if necessary. Definite UIP pattern of interstitial lung disease, progressed since 2023. Correlate with PFTs. If abnormal, pulmonology referral could be considered for complete workup. Prominent number of mediastinal lymph nodes, probably reactive to the presence of interstitial lung disease. Dictated by: Ayaz Ramirez M.D. on 04/10/2024 at 15:34 Approved by: Ayaz Ramirez M.D. on 04/10/2024 at 15:43
== END ==
PROVIDERS: Family Provider Family Medicine; PCP Family Medicine; Referring Provider Physician Assistant Surgical; Visit Provider Physician Assistant Surgical
DX: M84.48XA Pathological fracture, other site, initial encounter for fracture (principal); J84.9 Interstitial pulmonary disease, unspecified; R59.0 Localized enlarged lymph nodes; Z85.89 Personal history of malignant neoplasm of other organs and systems
CPT/HCPCS: 71260; Q9967

== ENCOUNTER → 2024-04-13 11:44 | Outpatient (CLI) | payer MEDICARE, OTHER, SELFPAY ==
[2023-09-08 16:24] VITALS: PULSE 67; RESP 13; O2SAT 92; BMI 23.0
--- NOTE | 2024-04-13 17:15 | ST.SWALLOW ---
Visit Care Team Role Provider Type Gurpreet Mckenzie DO Attending Provider Physician Family Provider Primary Care Provider Referring Provider Specialty: Family Practice Address: [address] [place] [address], [facility] Email: Modified Barium Swallow Study BASEBALL PLAYER Modified Barium Swallow Study Start: 04/13/24 09:33 Freq: Status: Active Protocol: Document 04/13/24 16:04 LNK (Rec: 04/13/24 17:15 LNK [id number]) Modified Barium Swallow Study Total Time Visit Start Time 12:00 Visit Stop Time 12:30 Total Visit Minutes 30 Setting Setting Outpatient Care Patient Information Identification Type Name,Date of Patient History Pt is a 78 year old male referred to this clinic for a repeat Modified Barium swallow Study to determine current swallow status as well as his risk for aspiration. Pt was last seen for MBSS on October 2023. The results at that time indicated: Lingual paresis right side; velar weakness right side; Difficulty with mastication control/bolus formation for advanced texture. 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 Able to protect airway with right head turn strategy. Pt had a PMH of head/neck cancer. He has undergone and completed proton therapy. Pt had CT soft tissue of his neck on 04/10/23. 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 Pt has been receiving swallow therapy and EMS/Vital EMS therapy targeting improved lingual and pharyngeal muscles since October 2023. Pt feels that his speech has improved; however his swallow was improving, but currently has plateaued Subjective Observations Pt was seated in the fluoroscopy chair with directions and procedures described for him. He indicated he understood and agreed to proceed. Patient Positioning Position View Lat-A/P Imaging Lateral View Textures Administered Trials Presented Thin Liquid via Spoon (IDDSI 0 ),Extremely Thick Liquid via Spoon (IDDSI 4),Easy to Chew ( IDDSI 7),Regular (IDDSI 7) Barium Tablet No The IDDSI Framework Protocol: IDDSI.1 Oral Impairment Source: The Modified Barium Swallow Impairment Profile (MBSImP??) Lip Closure Escape from interlab.space/lat .junct.;no ext. beyond vermilion border Bolus Preparation/Mastication Slow prolonged chewing/mashing with complete re-collection Bolus Transport/Lingual Motion Slowed tongue motion Oral Residue Residue collection on oral structures Location Tongue,Lateral sulci Initiation of Pharyngeal Swallow Bolus head at pyriforms Additional Oral Impairment Observations *Bilateral velar movement for ah ( improvement since last MBSS *Improved speeh intelligibility with improved OM ROM and speed *U/L dentures in place *Mastication slow with good containment and bolus control Pharyngeal Impairment Source: The Modified Barium Swallow Impairment Profile (MBSImP??) Laryngeal Elevation No superior movement of thyroid cartilege Anterior Hyoid Excursion No anterior movement Epiglottic Movement Partial inversion Laryngeal Vestibular Closure Incomplete; narrow column air/ contrast in laryngeal vestibule Pharyngeal Stripping Wave Absent Pharyngoesophageal Segment Opening Partial distention/partial duration; partial obstruction of flow Tongue Base Retraction No visible posterior motion of tongue base Pharyngeal Residue Collection of residue within/ on pharyngeal structures Location Diffuse (>3 areas) Additional Pharyngeal Impairment *Tracheal aspiration (silent Observations with thin liquids in a head forward position. Following this, a right head turn strategy with a supraglottic swallow ( effortful) strategy employed: *Minimal base of tongue movement with limited hyolaryngeal elevation and movement. *Epiglottic inversion incomplete with interference by esophageal mass *Incomplete closure of the laryngeal vestibule with laryngeal penetration observed. *Implementation of effortful swallow followed by cough (e.g., super supraglotic strategy) effective in reducing laryngeal penetration/ aspiration *Pharyngeal pooling following all swallows; pt aware several swallows required to clear pharyngeal cavities *Esophageal mass appeared to interfere with full extension and duration of the UES, again requiring several swallows to clear residual *When compared to the [place] video of the October 2023 MBSS, the tissue mass appears to be larger A/P View The IDDSI Framework Protocol: IDDSI.1 A/P View Observations Additional A-P Observations No AP trials were attempted Clinical Impressions Dysphagia Type Oral,Pharyngeal,Esophageal Findings *Mild oral phase dysphagia continues but oral structures and function appear to have improved with EMS therapy. Moderate to severe pharyngeal phase dysphagia continues. 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 Continued ST/swallow therapy and EMS therapy is recommended Rehabilitation Potential Good Patient Appropriate for Therapy Yes Recommendations Diet Comments No change in diet recommended at this time Additional Dietary Needs Single Sips,Reminders to Use Strategies Aspiration Precautions Recommended Precautions Upright at 90 Degrees,Small Bites/Sips,Double Swallow, Right Head Turn,Liquids from Spoon Treatment Plan Therapy Recommendations Outpatient Speech Therapy,Oral Motor Exercises,Base of Tongue Exercises Therapy Strategy Recommendations Sitting Upright (90 deg),Turn Head Right,Double Swallow, Liquids from Spoon,Small Bites and Sips,Alternate Liquids/ Solids
== END ==
PROVIDERS: Family Provider Family Medicine; PCP Family Medicine; Referring Provider Family Medicine; Visit Provider Family Medicine
DX: R13.10 Dysphagia, unspecified (principal); Z85.89 Personal history of malignant neoplasm of other organs and systems
CPT/HCPCS: 74230; 92611

== ENCOUNTER → 2024-05-19 15:24 | Outpatient (CLI) | payer MEDICARE, OTHER, SELFPAY ==
[2024-04-20 11:03] VITALS: PULSE 67; RESP 13; O2SAT 92; BMI 23.0
[2024-05-19 16:03] LABS: Appearance Urine UA CLEAR; Bilirubin Urine UA NEGATIVE (NEGATIVE); Color Urine UA YELLOW; Glucose Urine UA NEGATIVE (Negative); Ketones Urine UA NEGATIVE (NEGATIVE); Leukocyte Esterase Urine UA NEGATIVE (NEGATIVE); Nitrite Urine UA NEGATIVE (Negative); Occult Blood Urine UA TRACE-INTACT (Negative); Protein Urine UA NEGATIVE (Negative); Specific Gravity Urine UA 1.015 (1.000-1.035)
[2024-05-19 16:17] LABS: Bacteria Urine Occasional (0-1); Culture Indicated Urine Cult Not Indicated; RBC Urine 1-5/HPF (0-5/HPF); Squamous Epithelial Cell Urine 0-1 /HPF (0-5/HPF); Urine Volume 10mL (spun); WBC Urine 0-1/HPF (0-5/HPF)
== END ==
LOC: LAB 15:27
PROVIDERS: PCP Family Medicine; Referring Provider Internal Medicine; Visit Provider Internal Medicine
DX: C76.0 Malignant neoplasm of head, face and neck (principal); R10.9 Unspecified abdominal pain
CPT/HCPCS: 81001

== ENCOUNTER 2024-05-24 10:45 | Outpatient (RCR) | payer MEDICARE, OTHER, SELFPAY ==
[2023-09-08 16:24] VITALS: PULSE 67; RESP 13; O2SAT 92; BMI 23.0
--- NOTE | 2023-10-20 14:20 | ST.OPIE ---
Visit Care Team Role Provider Type Gurpreet Mckenzie DO Attending Provider Physician Family Provider Primary Care Provider Referring Provider Specialty: Family Practice Address: [address] [place] [address], [id number] Email: Speech-Language Pathology Initial Evaluation [employer] Clinical Swallow Evaluation Start: 10/20/23 11:58 Freq: Status: Active Protocol: Document 10/20/23 12:02 CG (Rec: 10/20/23 13:53 CG [id number]) Clinical Swallow Evaluation Session Time Visit Start Time 12:00 Visit Stop Time 12:50 Total Visit Minutes [address] 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 Pt reports that his symptoms all started with first bite syndrome, in which he would have a sharp pain in the parotid region of his face upon taking his first bite of food. This progressed to the pt having difficulty swallowing solids and his speech becoming gradually more slurred. This all started around 2022. Pt was diagnosed with head and neck cancer and doctors recommended removing lymph nodes on his right side. Pt did not want to pursue this and instead pursued proton therapy. He just finished his last round of proton therapy on October 07. Camron is currently experiencing paresis of the right side of his tongue, drooping of his right eye, and numbness on right side of the tongue. He is currently on a full liquid diet as he is not able to start trialing swallowing solids for about another week due to his recent proton therapy. He has unintentionally lost 35 lbs since his cancer symptoms began. Pt also complains that his voice is hoarse and lower pitch, with vocal symptoms feeling worse first thing in the morning. He also demonstrates inhalatory stridor at rest. The pt complains that pills tend to get stuck in his throat when swallowing. He has tried crushing his medications in the past and he believes they are all crushable, but he doesn't prefer to crush them due to hassle and taste. He also states that liquids feel like they tend to get stuck in the throat a little bit, but ultimately he is able to swallow them. He feels this may be due to a swelling in the throat/esophagus due to inflammation from the proton therapy. He complains of excessive saliva and phlegm in his throat, though he is not sure if this is due to increased intake of dairy with soft food diet. Pt stated he does not have any history of reflux or asthma. He does not have a known history of aspiration pneumonia. He also has a history of abdominal aortic aneurysm. Camron is retired and lives at home with his . He feels that his symptoms have a mild impact on his ability to function in the community and engage in interpersonal communication, but his is supportive. 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 He states that his goals for speech therapy are to get back to normal and eat solid foods again, as well as strengthen his voice again . Subjective Observations Pt arrived on time to his appointment and independently ambulated to the room with a cane to support his right leg due to recent knee surgery. He was alert, oriented, agreeable, and able to answer questions about case history. Reported by Patient/Caregiver Pain/Discomfort Yes Location Neck Other Symptoms Difficulty swallowing pills, Drooling,Food gets stuck Comment Hx head and neck cancer with recent completion of proton therapy. Symptoms include: -hoarse voice, worse in morning -difficulty swallowing pills -difficulty initiating swallow reflex -unable to swallow solids; on full liquid diet -liquids sometimes feel stuck -frequent throat clearing -excessive phlegm/saliva Current Diet Liquidised (IDDSI 3),Pureed ( IDDSI 4) Baseline Feeding Method Independent in self-feeding The IDDSI Framework Protocol: IDDSI.1 Objective Assessment Mental Status Alert,Responsive,Cooperative Oral Integrity Excessive saliva/Drooling, Thrush Dentition Upper dentures/partials,Lower dentures/partials Lip Function Within normal limits Observation of Lips at Rest Symmetrical Pucker Within normal limits Lip Retraction Within normal limits Alternating Pucker/Lip Retraction Within normal limits Tongue Function Moderate impairment Observations of Tongue at Rest Deviates to the left Tongue Protrusion Deviates to the left Tongue Lateralization Reduced range of motion, Reduced strength Jaw Function Within normal limits Observation of Jaw at Rest Within normal limits Jaw Opening Within normal limits Jaw Closing Within normal limits Hard/Soft Palate Function Moderate impairment Observations of Hard/Soft Palate Lower on the right side, Reduced strength/ROM of soft palate elevation Respiratory Sufficiency Mild impairment Comment OME significant for the following: -right sided lingual weakness and numbess, resulting in tongue deviating left -right sided palate weakness with reduced elevation on phonation -suspect possible involvement of right glossopharyngeal and trigeminal nerves, possibly also facial nerve -inhalatory stridor -suspect thrush on lingual surgace Food and Liquid Trials Position During Assessment Upright (90 degrees) Liquids Trialed Thin (IDDSI 0),Extremely Thick (IDDSI 4) Solid Trials Purred (IDDSI 4) Administration Type Tea spoon,Cup single sip,Cup consecutive sips,Self-feeding Oral Impairment Moderately impaired Oral Phase Comments Thin liquids: -mild oral stasis/holding with delayed initiation of pharyngeal swallow -no anterior bolus loss -no overt s/sx premature bolus loss to the pharynx IDDSI 4 Puree (applesauce): -mild oral stasis/holding with delayed initiation of pharyngeal swallow -multiple swallows to clear -no anterior bolus loss -no overt s/sx premature bolus loss to the pharynx IDDSI 4 Pudding: -mild oral stasis/holding with delayed initiation of pharyngeal swallow -multiple swallows to clear -no anterior bolus loss -no overt s/sx premature bolus loss to the pharynx Pharyngeal Impairment Mildly impaired Pharyngeal Phase Comments Thin liquids: -mild throat clearing after each sip, indicative of possible pharyngeal residue. Pt reports he also has to clear his throat throughout the day -normal vocal quality post swallows -no coughing or overt s/sx aspiration though silent aspiration cannot be ruled out without an instrumental assessment IDDSI 4 Puree (applesauce): -delayed throat clearing after swallows -multiple swallows to clear residue -no coughing or overt s/sx aspiration though silent aspiration cannot be ruled out without an instrumental assessment IDDSI 4 Pudding: -delayed throat clearing after swallows -multiple swallows to clear residue -no coughing or overt s/sx aspiration though silent aspiration cannot be ruled out without an instrumental assessment The IDDSI Framework Protocol: IDDSI.1 Findings Swallowing Function Oropharyngeal phase dysphagia Severity of Swallow Impairment Mildly-moderately impaired Contributing Factors to Swallow Reduced oral strength/ Impairment coordination/sensation, Impaired oral-pharyngeal transport,Delayed swallow initiation,Excessive pharyngeal residue Prognosis Fair Based on Age,Comorbidities Impact on Safety and Functioning Risk for inadequate nutrition/ hydration Recommendations Instrumental Assessment Yes Swallowing Treatment Yes Recommended Solids Liquidised (IDDSI 3) Recommended Liquids Thin (IDDSI 0) Other Recommendations Recommending modified barium swallow study prior to next appointment in order to obtain objective evaluation of swallow function. Dysphagia symptoms do not appear to warrant further diet modification at this time, pending new information from MBSS. Pt independently utilizes multiple compensatory strategies including throat clear and re-swallow, liquid wash, small bites, and slow rate. Safety Precautions/Swallowing Remain upright (90 degrees) Recommendations during all oral intake,Small bites and sips when eating, Slow rate; swallow between bites Medication Recommendations Crushed in Carrier Discharge Recommendations Home Education Patient/Caregiver Education Described results of evaluation,Patient expressed understanding of evaluation, Patient expressed agreement with goals & treatment plans Goals Short-term Goals 1. Pt will complete MBSS for objective evaluation of swallow function. POC to be updated following MBSS. 2. Pt will benefit from education in strengthening exercises to rehabilitate facial/oral movement on right side of face and decrease facial/lingual paresis. 3. Pt will complete lingual/ tongue base strengthening exercises with 80% accuracy independently in order to decrease s/sx oral phase dysphagia. Long-term Goals Pt will consume a diet of regular solids and thin liquids without s/sx aspiration in order to safely consume least restrictive diet and return to PLOF. Pt will decrease R sided lingual strength/ROM deficits from moderate-severe deficits to mild deficits as measured via perceptual observation by [employer].
--- NOTE | 2023-10-20 14:23 | ST.OPPOC ---
Physical, Occupational & Speech Therapy At [facility] Visit Care Team Role Provider Type Gurpreet Mckenzie DO Attending Provider Physician Family Provider Primary Care Provider Referring Provider Address: [address] [place] [address], [id number] Speech Pathology Plan of Care Referring Provider Dr. 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 Pt reports that his symptoms all started with first bite syndrome, in which he would have a sharp pain in the parotid region of his face upon taking his first bite of food. This progressed to the pt having difficulty swallowing solids and his speech becoming gradually more slurred. This all started around 2022. Pt was diagnosed with head and neck cancer and doctors recommended removing lymph nodes on his right side. Pt did not want to pursue this and instead pursued proton therapy. He just finished his last round of proton therapy on October 07. Camron is currently experiencing paresis of the right side of his tongue, drooping of his right eye, and numbness on right side of the tongue. He is currently on a full liquid diet as he is not able to start trialing swallowing solids for about another week due to his recent proton therapy. He has unintentionally lost 35 lbs since his cancer symptoms began. Pt also complains that his voice is hoarse and lower pitch, with vocal symptoms feeling worse first thing in the morning. He also demonstrates inhalatory stridor at rest. The pt complains that pills tend to get stuck in his throat when swallowing. He has tried crushing his medications in the past and he believes they are all crushable, but he doesn't prefer to crush them due to hassle and taste. He also states that liquids feel like they tend to get stuck in the throat a little bit, but ultimately he is able to swallow them. He feels this may be due to a swelling in the throat/ esophagus due to inflammation from the proton therapy. He complains of excessive saliva and phlegm in his throat, though he is not sure if this is due to increased intake of dairy with soft food diet. Pt stated he does not have any history of reflux or asthma. He does not have a known history of aspiration pneumonia. He also has a history of abdominal aortic aneurysm. Camron is retired and lives at home with his . He feels that his symptoms have a mild impact on his ability to function in the community and engage in interpersonal communication, but his is supportive. 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 He states that his goals for speech therapy are to get back to normal and eat solid foods again, as well as strengthen his voice again. Therapy Recommendations Continue to follow patient throughout hospital stay. Planned to d/c 08/12/19. Solid Recommendations Regular Short-term Goals 1. Pt will complete MBSS for objective evaluation of swallow function. POC to be updated following MBSS. 2. Pt will benefit from education in strengthening exercises to rehabilitate facial/ oral movement on right side of face and decrease facial/lingual paresis. 3. Pt will complete lingual/tongue base strengthening exercises with 80% accuracy independently in order to decrease s/sx oral phase dysphagia. Long-term Goals Pt will consume a diet of regular solids and thin liquids without s/sx aspiration in order to safely consume least restrictive diet and return to PLOF. Pt will decrease R sided lingual strength/ROM deficits from moderate-severe deficits to mild deficits as measured via perceptual observation by [employer]. Comment: Electronically Signed by: BLANKA Steward 10/20/23 8232 If you are in agreement with this Plan of Care, please return a signed and dated copy. I have reviewed this Plan of Care and certify that the skilled therapy services above are required to meet the patient?s needs. Physician Signature Date Printed Name and Credentials Clinical Instructor Signature Printed Name and Credentials
--- NOTE | 2023-11-25 12:36 | ST.IPDYTX ---
Visit Care Team Role Provider Type Gurpreet Mckenzie DO Attending Provider Physician Family Provider Primary Care Provider Referring Provider Specialty: [facility] Address: [address] [place] [address], [facility] Email: ER MEDICAL TECHNICIAN Dysphagia Treatment ER MEDICAL TECHNICIAN Dysphagia Treatment Start: 11/25/23 11:18 Freq: Status: Active Protocol: Document 11/25/23 11:18 CG (Rec: 11/25/23 12:24 CG [id number]) Dysphagia Treatment Session Time Visit Start Time 11:15 Visit Stop Time 11:57 Total Visit Minutes 42 Visit Information Visit Number 2 Setting Assessment Location Outpatient Care Patient Information Subjective Observations Pt arrived on time to his appointment and independently ambulated to the room. He was alert, oriented, agreeable. Treatment Liquids Trialed Thin (IDDSI 0),Extremely Thick (IDDSI 4) Administration Type Cup Single Sip Oral Strategies Upright at 90 degrees, Controlled Bite/Sip Size Pharyngeal Strategies Sitting Upright (90 deg),Turn Head Right,Small Bites and Sips Treatment Activities Review of MBSS results and recommendations based on MBSS report. Introduction of pharyngeal/laryngeal strengthening exercises including effortful swallow, glottal closure exercise, chin tuck against resistance, Aline maneuver, posterior lingual press, in order to rehabilitate BOT movement and facilitate increased airway closure during the swallow. The IDDSI Framework Protocol: IDDSI.1 Assessment Patient Response to Treatment Good Rehab Potential Fair Assessment of Improvement Pt was agreeable to all exercises introduced today. He eas able to complete effortful swallow exercise with approximately 50% accuracy/rate - ideally, goal is for pt to be able to complete one effortful swallow every ten seconds. Currently , he is able to complete at a rate of every 20 seconds. Pt completed aline maneuver, glottal closure, chin tuck against resistance, and lingual presses accurately with min verbal cues. Pt states he is frustrated by his lack of progress with solid foods, but was agreeable to ER MEDICAL TECHNICIAN suggestions of diet modifications (e.g. minced and mooist meats). Also reiterated today the importance of using head turn as pt demonstrated silent aspiration on MBSS which resolved with head turn. Discussed environmental modification to facilitate head turn during mealtime (e.g . placing TV in right field of vision). Continue to recommend ENT consult to assess vocal fold adduction; pt states he will reach out to Dr. Pang. Recommendations Recommendations Continue Current Diet Liquids Order Thin (IDDSI 0) Diet Order Liquidised (IDDSI 3) Medication Recommendations As Tolerated,Whole in Carrier Additional Dietary Needs Single Sips,Controlled Sips, Reminders to Use Strategies Aspiration Precautions Recommended Precautions Right Head Turn,Liquids from Cup Treatment Plan Placement Recommendation after Discharge Home,Home with Home Health, Home Care Appropriate for Continued Therapy Yes Dysphagia Goals STG1. Pt will complete MBSS for objective evaluation of swallow function. POC to be updated following MBSS. STG2. Pt will benefit from education in strengthening exercises to rehabilitate facial/oral movement on right side of face and decrease facial/lingual paresis. STG3. Pt will complete lingual /tongue base strengthening exercises with 80% accuracy independently in order to decrease s/sx oral phase dysphagia. LTG1. Pt will consume a diet of regular solids and thin liquids without s/sx aspiration in order to safely consume least restrictive diet and return to PLOF. LTG2. Pt will decrease R sided lingual strength/ROM deficits from moderate-severe deficits to mild deficits as measured via perceptual observation by ER MEDICAL TECHNICIAN. Referrals/Other Recommended Referrals ENT Consult
--- NOTE | 2023-12-01 09:44 | ST.IPDYTX ---
Visit Care Team Role Provider Type Gurpreet Mckenzie DO Attending Provider Physician Family Provider Primary Care Provider Referring Provider Specialty: [facility] Practice Address: [address] [place] [address], [id number] Email: CAN STERILIZER Dysphagia Treatment CAN STERILIZER Dysphagia Treatment Start: 11/25/23 11:18 Freq: Status: Active Protocol: Document 12/01/23 09:13 CG (Rec: 12/01/23 09:42 CG [id number]) Dysphagia Treatment Session Time Visit Start Time 09:06 Visit Stop Time 09:36 Total Visit Minutes 30 Visit Information Visit Number 3 Plan of Care Dates 10/20/23-01/20/24 Setting Assessment Location Outpatient Care Patient Information Subjective Observations Pt arrived on time to his appointment and independently ambulated to the room. He was alert, oriented, agreeable. Treatment Liquids Trialed Thin (IDDSI 0),Extremely Thick (IDDSI 4) Solids Trialed Purred (IDDSI 4) Administration Type Cup Single Sip Oral Strategies Upright at 90 degrees, Controlled Bite/Sip Size Pharyngeal Strategies Sitting Upright (90 deg),Turn Head Right,Small Bites and Sips Treatment Activities Review of MBSS results and recommendations based on MBSS report. Introduction of pharyngeal/laryngeal strengthening exercises including effortful swallow, glottal closure exercise, chin tuck against resistance, Aline maneuver, posterior lingual press, in order to rehabilitate BOT movement and facilitate increased airway closure during the swallow. The IDDSI Framework Protocol: IDDSI.1 Assessment Patient Response to Treatment Good Rehab Potential Fair Assessment of Improvement Pt was agreeable to all exercises introduced today. He eas able to complete effortful swallow exercise with approximately 80% accuracy today with sips of water to help elicit swallow reflex. With water added, he is able to complete effortful swallows every 5-10 seconds. Pt states he has been able to complete all other exercises without difficulty. Pt recently revisited Dr. Pang and was scoped. 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 Based on lack of adduction, introduced vocal adduction exercises today in an attempt to rehabilitate R vocal fold movement. Exercises included hard glottal onset/sustained ah production and pitch glide exercises. Pt was able to complete all exercises introduced with appriximately 80% accuracy given min verbal cues. Pt states he is now able to eat some finely chopped up meat and has even had some peruvian toast. He states that he is usually able to eat solids at the beginning of the meal, but by the end starts to have more difficulty swallowing. CAN STERILIZER to request Dr. Pang fax over report from scope for further review. Recommendations Recommendations Continue Current Diet Liquids Order Thin (IDDSI 0) Diet Order Pureed (IDDSI 4) Medication Recommendations As Tolerated,Whole in Carrier Additional Dietary Needs Single Sips,Controlled Sips, Reminders to Use Strategies Aspiration Precautions Recommended Precautions Right Head Turn,Liquids from Cup Treatment Plan Placement Recommendation after Discharge Home,Home with Home Health, Home Care Appropriate for Continued Therapy Yes Dysphagia Goals STG1. Pt will complete MBSS for objective evaluation of swallow function. POC to be updated following MBSS. STG2. Pt will benefit from education in strengthening exercises to rehabilitate facial/oral movement on right side of face and decrease facial/lingual paresis. STG3. Pt will complete lingual /tongue base strengthening exercises with 80% accuracy independently in order to decrease s/sx oral phase dysphagia. LTG1. Pt will consume a diet of regular solids and thin liquids without s/sx aspiration in order to safely consume least restrictive diet and return to PLOF. LTG2. Pt will decrease R sided lingual strength/ROM deficits from moderate-severe deficits to mild deficits as measured via perceptual observation by CAN STERILIZER. Referrals/Other Recommended Referrals ENT Consult
--- NOTE | 2023-12-15 09:26 | ST.IPDYTX ---
Visit Care Team Role Provider Type Gurpreet Mckenzie DO Attending Provider Physician Family Provider Primary Care Provider Referring Provider Specialty: [facility] Address: [address] [place] [address], [id number] Email: [employer]ICE PRESIDENT Dysphagia Treatment [employer]ICE PRESIDENT Dysphagia Treatment Start: 11/25/23 11:18 Freq: Status: Active Protocol: Document 12/09/23 10:35 SS (Rec: 12/09/23 10:54 SS [id number]) Dysphagia Treatment Session Time Visit Start Time 09:45 Visit Stop Time 10:28 Total Visit Minutes 43 Visit Information Visit Number 4 Plan of Care Dates 10/20/23-01/20/24 Setting Assessment Location Outpatient Care Visit Type Note Type Treatment Note Next Note Type Next Note Type Treatment Note Patient Information Subjective Observations Pt arrived on time to his appointment and independently ambulated to the room. He was engaged and motivated throughout the session. 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 Continued to implement pharyngeal/laryngeal strengthening exercises including effortful swallow, glottal closure exercise, chin tuck against resistance, Aline maneuver, posterior lingual press, in order to rehabilitate BOT movement and facilitate increased airway closure during the swallow. The IDDSI Framework Protocol: IDDSI.1 Assessment Patient Response to Treatment Good Rehab Potential Fair Assessment of Improvement Reviewed ENT report from Dr. Pang from 11/30/23. 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 Discussed Dr. Pang? 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 Pang? office for referral to carton counter feeder in order to be educated on management options. Pt was agreeable to recommendation. Continued implementing vocal adduction exercises today in an attempt to rehabilitate R vocal fold movement. Exercises included hard glottal onset/sustained ah production and pitch glide exercises. Pt was able to complete all exercises introduced with approximately 80% accuracy given min verbal cues. Facilitated discussion re: pt? s swallowing in the past week. He expressed he has been completing HEP, though not daily. Recommended pt continue to complete HEP daily and identify a time in the day to complete the exercises. Pt stated he will try to complete the exercises. He stated he has been consuming minced and moist diet at home with some purees. Additionally, he reports he has been consistent with head turn to the right during all swallows. Continued implementing isometric and isokinetic Chin Tuck Against Resistance (CTAR) with the goal of strengthening suprahyoid and submental musculature for improved hyolaryngeal elevation and excursion. Provided education re: accurate form for completing the exercise. Pt completed isometric CTAR for 30-seconds x 3 reps. Pt completed isokinetic CTAR 20 reps x 3 sets. One minute of rest completed between each set. Pt endorsed feeling appropriately challenged at the end of both exercises. Pt benefited from clinician cueing, modeling, and verbal instruction during the task. Pt with good form on this date . Provided [employer] link for purchasing CTAR ball for increased resistance as pt reporting reduced resistance with rolled up towel. Instructed pt in the Effortful Swallow to improve tongue to palate contact, base of tongue retraction, hyolaryngeal elevation and excursion, pharyngeal constriction, and opening of the upper esophageal sphincter for improved swallowing safety and efficiency. Provided education re: form and goal of the exercise for decreased pharyngeal residue. Bolus- driven effortful swallows completed with the following consistencies: 5 ml thin: 21/21 successful swallows; average of 1 swallow per bolus. Occasional post- swallow controlled throat clears. 5 ml puree: 25/25 successful swallows; average of 1 swallow per bolus. Occasional post- swallow controlled throat clears. Updated goals given pt?s completion of MBSS and ENT consult as well as interest in pursuing voice treatment. Reviewed HEP at the conclusion of the session, with pt verbalizing understanding. HEP Recommendation: Isometric CTAR 30 seconds x 3 reps (1- minute rest between each), Isokinetic CTAR 20 reps x 3 sets (1-minute rest between each), effortful swallow 30-50 reps with thin liquid and/or puree, Aline, posterior lingual press, and hard glottal onset/sustained ah Pt participated well in the treatment session on this date . Plan for pt to implement HEP and report back progress in the following session. Recommendations Recommendations Continue Current Diet Liquids Order Thin (IDDSI 0) Diet Order Pureed (IDDSI 4) Medication Recommendations As Tolerated,Whole in Carrier Comments Pt appears to be safely tollerate diet advance recommendations as indicated Additional Dietary Needs Single Sips,Controlled Sips, Reminders to Use Strategies Aspiration Precautions Recommended Precautions Right Head Turn,Liquids from Cup Treatment Plan Placement Recommendation after Discharge Home,Home with Home Health, Home Care Appropriate for Continued Therapy Yes Dysphagia Goals STG1. Pt will complete MBSS for objective evaluation of swallow function. POC to be updated following MBSS. 12/09/23: MBSS completed. Please see report for results. STG2. Pt will benefit from education in strengthening exercises to rehabilitate facial/oral movement on right side of face and decrease facial/lingual paresis. STG3. Pt will complete lingual /tongue base strengthening exercises with 80% accuracy independently in order to decrease s/sx oral phase dysphagia. STG4. Patient will complete voice exercises (e.g., resonant voice, syllable warm- up, sustained phonation, and pitch glides) with 80% accuracy independently in order to increase adduction of right vocal fold and improve vocal quality. LTG1. Pt will consume a diet of regular solids and thin liquids without s/sx aspiration in order to safely consume least restrictive diet and return to PLOF. LTG2. Pt will decrease R sided lingual strength/ROM deficits from moderate-severe deficits to mild deficits as measured via perceptual observation by [employer]ING VICE PRESIDENT. LTG3. Patient will improve self-perception of voice from a baseline of 05/08 following participation in [facility].
--- NOTE | 2023-12-15 10:31 | ST.IPDYTX ---
Visit Care Team Role Provider Type Gurpreet Mckenzie DO Attending Provider Physician Family Provider Primary Care Provider Referring Provider Specialty: Family Practice Address: [address] [place] [address], [facility] Email: BANDER HAND Dysphagia Treatment [facility] Dysphagia Treatment Start: 11/25/23 11:18 Freq: Status: Active Protocol: Document 12/15/23 10:22 MA (Rec: 12/15/23 10:31 MA [id number]) Dysphagia Treatment Session Time Visit Start Time 09:45 Visit Stop Time 10:20 Total Visit Minutes 35 Visit Information Visit Number 5 Plan of Care Dates 10/20/23-01/20/24 Setting Assessment Location Outpatient Care Visit Type Note Type Treatment Note Next Note Type Next Note Type Treatment Note Patient Information Subjective Observations Pt arrived on time to his appointment and independently ambulated to the room. He was engaged and motivated throughout the session. Treatment Liquids Trialed Thin (IDDSI 0) Solids Trialed Purred (IDDSI 4) Administration Type Cup Single Sip Oral Strategies Upright at 90 degrees, Controlled Bite/Sip Size Pharyngeal Strategies Sitting Upright (90 deg),Turn Head Right,Effortful Swallow, Small Bites and Sips Treatment Activities Introduction and instruction with NMES, PO trials and hyolaryngeal strengthening exercises- including effortful swallow, Aline maneuver, posterior lingual press, in order to rehabilitate BOT movement and facilitate increased airway closure during the swallow. The IDDSI Framework Protocol: IDDSI.1 Assessment Patient Response to Treatment Good Rehab Potential Fair Assessment of Improvement Pt reports he isn't sure if he is getting better or staying the same. He states he has to crush his excedrin now, however does not crush other medications and takes them whole with minimal difficulties. Pt reports he has been trying to consume more solids with meals consisting of- cream of wheat, pancakes/hebrew toast with mapel syrup cut into small pieces, soup, stews with meat/ veggies cut into small pieces. He reports occasional coughing/choking difficulties. He states he just bought a ball yesterday to utilize for CTAR exercises. ST educated Pt on neuroelectrical muscular stimulation (NMES). Pt compliant. ST placed electrodes in the 3h position with Pt tolerating stim at a level 8.0mA. Pt participated in NMES in conjunction with PO trials and swallow exercises. Pt consumed 4 oz of pudding and about 6 oz of thin water via straw. Pt was instructed to utilize effortful swallow with all swallows. He independently turned his head to the right with all swallows . For solids, Pt demonstrated adequate bite size and rate, prolonged ap transport, occasional audible swallow reflex, no overt s/s of aspiration. Pt with hoarse vocal quality prior to PO trials. For thin water via straw Pt with adequate suction , good oral acceptance and containment, slight increase in wet vocal quality and audibile swallow reflex. Pt with no coughing or choking with all PO trials. Pt completed 10 reps of Aline exercise. He reported difficulties with this exercise and stated he needed water during it to swallow. ST advised Pt to alternate taking a drink and doing the exercise without a drink. ST recommends Pt continue with HEP at home consisting of swallowing exercises 2-3x/day 10 reps each. Pt verbalized understanding. Recommendations Recommendations Continue Current Diet Liquids Order Thin (IDDSI 0) Diet Order Pureed (IDDSI 4) Medication Recommendations As Tolerated,Whole in Carrier Comments Pt appears to be safely tollerate diet advance recommendations as indicated Additional Dietary Needs Single Sips,Controlled Sips, Reminders to Use Strategies Aspiration Precautions Recommended Precautions Right Head Turn,Liquids from Cup Treatment Plan Placement Recommendation after Discharge Home,Home with Home Health, Home Care Appropriate for Continued Therapy Yes Dysphagia Goals STG1. Pt will complete MBSS for objective evaluation of swallow function. POC to be updated following MBSS. 12/09/23: MBSS completed. Please see report for results. STG2. Pt will benefit from education in strengthening exercises to rehabilitate facial/oral movement on right side of face and decrease facial/lingual paresis. STG3. Pt will complete lingual /tongue base strengthening exercises with 80% accuracy independently in order to decrease s/sx oral phase dysphagia. STG4. Patient will complete voice exercises (e.g., resonant voice, syllable warm- up, sustained phonation, and pitch glides) with 80% accuracy independently in order to increase adduction of right vocal fold and improve vocal quality. LTG1. Pt will consume a diet of regular solids and thin liquids without s/sx aspiration in order to safely consume least restrictive diet and return to PLOF. LTG2. Pt will decrease R sided lingual strength/ROM deficits from moderate-severe deficits to mild deficits as measured via perceptual observation by B[employer]ER HAND. LTG3. Patient will improve self-perception of voice from a baseline of 05/08 following participation in skilled services. Referrals/Other Recommended Referrals ENT Consult
--- NOTE | 2023-12-23 10:31 | ST.IPDYTX ---
Visit Care Team Role Provider Type Gurpreet Mckenzie DO Attending Provider Physician Family Provider Primary Care Provider Referring Provider Specialty: [facility] Practice Address: [address] [place] [address], [facility] Email: HOSPICE EXECUTIVE DIRECTOR Dysphagia Treatment HOSPICE EXECUTIVE DIRECTOR Dysphagia Treatment Start: 11/25/23 11:18 Freq: Status: Active Protocol: Document 12/23/23 10:15 MA (Rec: 12/23/23 10:17 MA [id number]) Dysphagia Treatment Session Time Visit Start Time 09:45 Visit Stop Time 10:20 Total Visit Minutes 35 Visit Information Visit Number 6 Plan of Care Dates 10/20/23-01/20/24 Setting Assessment Location Outpatient Care Visit Type Note Type Treatment Note Next Note Type Next Note Type Treatment Note Patient Information Subjective Observations Pt arrived on time to his appointment and independently ambulated to the room. He was engaged and motivated throughout the session. Treatment Liquids Trialed Thin (IDDSI 0) Solids Trialed Purred (IDDSI 4) Administration Type Cup Single Sip Oral Strategies Upright at 90 degrees, Controlled Bite/Sip Size Pharyngeal Strategies Sitting Upright (90 deg),Turn Head Right,Effortful Swallow, Small Bites and Sips Treatment Activities Introduction and instruction with NMES, PO trials and hyolaryngeal strengthening exercises- including effortful swallow, Aline maneuver, posterior lingual press, in order to rehabilitate BOT movement and facilitate increased airway closure during the swallow. The IDDSI Framework Protocol: IDDSI.1 Assessment Patient Response to Treatment Good Rehab Potential Good Assessment of Improvement Pt reports he thinks his swallowing has improved slightly. Pt reports he has been trying to consume more solids with meals consisting of- cream of wheat, toast dipped in cream of wheat, tuna salad. He reports occasional coughing/choking difficulties. Pt compliant with NMES. ST placed electrodes in the 3h position with Pt tolerating stim at a level 8.0mA. Pt participated in NMES in conjunction with PO trials and swallow exercises. Pt consumed 4 oz of diced peaches and 1/2 a slice of cheese and about 4 oz of thin juice via cup. Pt was instructed to utilize effortful swallow with all swallows. He independently turned his head to the right with all swallows . For solids, Pt demonstrated adequate bite size and rate, prolonged ap transport, occasional audible swallow reflex, no overt s/s of aspiration. Pt with hoarse vocal quality prior to PO trials. For thin water via straw Pt with adequate suction , good oral acceptance and containment, slight increase in wet vocal quality and audibile swallow reflex. Pt with no coughing or choking with all PO trials. Pt completed 10 reps of Aline exercise. He reported difficulties with this exercise and stated he needed water during it to swallow. ST advised Pt to alternate taking a drink and doing the exercise without a drink. Pt reports he has a CT scan on Wednesday. Pt reports no weight changes. He states he is waiting for a referral for the ENT. ST recommends Pt continue with HEP at home consisting of swallowing exercises 2-3x/day 10 reps each. Pt verbalized understanding. Recommendations Recommendations Upgrade Diet Order Liquids Order Thin (IDDSI 0) Diet Order Easy to Chew (IDDSI 7) Medication Recommendations As Tolerated,Whole in Carrier Comments Pt appears to be safely tolerate diet advance recommendations as indicated Additional Dietary Needs Single Sips,Controlled Sips, Reminders to Use Strategies Aspiration Precautions Recommended Precautions Right Head Turn,Liquids from Cup Treatment Plan Placement Recommendation after Discharge Home,Home with Home Health, Home Care Appropriate for Continued Therapy Yes Dysphagia Goals STG1. Pt will complete MBSS for objective evaluation of swallow function. POC to be updated following MBSS. 12/09/23: MBSS completed. Please see report for results. STG2. Pt will benefit from education in strengthening exercises to rehabilitate facial/oral movement on right side of face and decrease facial/lingual paresis. STG3. Pt will complete lingual /tongue base strengthening exercises with 80% accuracy independently in order to decrease s/sx oral phase dysphagia. STG4. Patient will complete voice exercises (e.g., resonant voice, syllable warm- up, sustained phonation, and pitch glides) with 80% accuracy independently in order to increase adduction of right vocal fold and improve vocal quality. LTG1. Pt will consume a diet of regular solids and thin liquids without s/sx aspiration in order to safely consume least restrictive diet and return to PLOF. LTG2. Pt will decrease R sided lingual strength/ROM deficits from moderate-severe deficits to mild deficits as measured via perceptual observation by HOSPICE EXECUTIVE DIRECTOR. LTG3. Patient will improve self-perception of voice from a baseline of 05/08 following participation in skilled services. Referrals/Other Recommended Referrals ENT Consult
--- NOTE | 2024-01-11 10:27 | ST.IPDYTX ---
Visit Care Team Role Provider Type Gurpreet Mckenzie DO Attending Provider Physician Family Provider Primary Care Provider Referring Provider Specialty: Family Practice Address: [address] [place] [address], [facility] Email: DIRECTOR INDUSTRIAL RELATIONS Dysphagia Treatment DIRECTOR INDUSTRIAL RELATIONS Dysphagia Treatment Start: 11/25/23 11:18 Freq: Status: Active Protocol: Document 01/11/24 10:16 MA (Rec: 01/11/24 10:27 MA [id number]) Dysphagia Treatment Session Time Visit Start Time 09:45 Visit Stop Time 10:20 Total Visit Minutes 35 Visit Information Visit Number 7 Plan of Care Dates 10/20/23-01/20/24 Setting Assessment Location Outpatient Care Visit Type Note Type Treatment Note Next Note Type Next Note Type Treatment Note Patient Information Subjective Observations Pt arrived on time to his appointment and independently ambulated to the room. He was engaged and motivated throughout the session. Treatment Liquids Trialed Thin (IDDSI 0) Solids Trialed Purred (IDDSI 4) Administration Type Cup Single Sip Oral Strategies Upright at 90 degrees, Controlled Bite/Sip Size Pharyngeal Strategies Sitting Upright (90 deg),Turn Head Right,Effortful Swallow, Small Bites and Sips Treatment Activities NMES, PO trials and hyolaryngeal strengthening exercises- including effortful swallow, Aline maneuver, posterior lingual press, in order to rehabilitate BOT movement and facilitate increased airway closure during the swallow. The IDDSI Framework Protocol: IDDSI.1 Assessment Patient Response to Treatment Good Rehab Potential Good Assessment of Improvement Pt reports no changes to swallow, however slight improvements with voice. He provided his CT scan results from 12/27/23 with the following impressions: Enlarged partially necrotic right level 2A mass mildly decreased in size consistent with known malignancy. Assymmetric prominence of the right tongue base as previously identified. Malignancy cannot be excluded. Medial is a nunez of the right vocal cord with thickening slightly less prominent as well as arytenoid collapse, unchanged. Pt reports he has been trying to consume more solids with meals consisting of- cream of wheat, spaghetti, tuna salad, namibian toast, pancakes. He reports occasional coughing/choking difficulties, specifically difficulties with hamburger. He reports he has a referral to see Dr. Gambino (ENT), however has not made the appointment yet. Pt compliant with NMES. ST placed electrodes in the 3h position with Pt tolerating stim at a level 8.0mA. Pt participated in NMES in conjunction with PO trials and swallow exercises. Pt consumed 4 oz of diced peaches and 4 oz of pudding and 4 oz of thin water via straw. Pt was instructed to utilize effortful swallow with all swallows. For solids, Pt demonstrated adequate bite size and rate, prolonged ap transport, occasional audible swallow reflex, no overt s/s of aspiration. Pt with hoarse vocal quality prior to PO trials. For thin water via straw Pt with adequate suction , good oral acceptance and containment, slight increase in wet vocal quality and audibile swallow reflex. Pt with no coughing or choking with all PO trials. Pt completed 10 reps of Aline exercise. Pt reports no weight changes. ST recommends Pt continue with HEP consisting of swallowing exercises 2-3x/day 10 reps each. Pt verbalized understanding. Recommendations Recommendations Continue Current Diet Liquids Order Thin (IDDSI 0) Diet Order Easy to Chew (IDDSI 7) Medication Recommendations As Tolerated,Whole in Carrier Comments Pt appears to be safely tolerate diet advance recommendations as indicated Additional Dietary Needs Single Sips,Controlled Sips, Reminders to Use Strategies Aspiration Precautions Recommended Precautions Right Head Turn,Liquids from Cup Treatment Plan Placement Recommendation after Discharge Home,Home with Home Health, Home Care Appropriate for Continued Therapy Yes Therapy Recommendations Continue to follow patient throughout hospital stay. Planned to d/c 08/12/19. Dysphagia Goals STG1. Pt will complete MBSS for objective evaluation of swallow function. POC to be updated following MBSS. 12/09/23: MBSS completed. Please see report for results. STG2. Pt will benefit from education in strengthening exercises to rehabilitate facial/oral movement on right side of face and decrease facial/lingual paresis. STG3. Pt will complete lingual /tongue base strengthening exercises with 80% accuracy independently in order to decrease s/sx oral phase dysphagia. STG4. Patient will complete voice exercises (e.g., resonant voice, syllable warm- up, sustained phonation, and pitch glides) with 80% accuracy independently in order to increase adduction of right vocal fold and improve vocal quality. LTG1. Pt will consume a diet of regular solids and thin liquids without s/sx aspiration in order to safely consume least restrictive diet and return to PLOF. LTG2. Pt will decrease R sided lingual strength/ROM deficits from moderate-severe deficits to mild deficits as measured via perceptual observation by DIRECTOR INDUSTRIAL RELATIONS. LTG3. Patient will improve self-perception of voice from a baseline of 05/08 following participation in [facility] services. Referrals/Other Recommended Referrals ENT Consult
--- NOTE | 2024-01-18 10:21 | ST.IPDYTX ---
Visit Care Team Role Provider Type Gurpreet Mckenzie DO Attending Provider Physician Family Provider Primary Care Provider Referring Provider Specialty: [facility] Practice Address: [address] [place] [address], [facility] Email: WILDLIFE VETERINARIAN Dysphagia Treatment WILDLIFE VETERINARIAN Dysphagia Treatment Start: 11/25/23 11:18 Freq: Status: Active Protocol: Document 01/18/24 10:18 MA (Rec: 01/18/24 10:21 MA [id number]) Dysphagia Treatment Session Time Visit Start Time 09:45 Visit Stop Time 10:25 Total Visit Minutes 40 Visit Information Visit Number 8 Plan of Care Dates 10/20/23-01/20/24 Setting Assessment Location Outpatient Care Visit Type Note Type Treatment Note Next Note Type Next Note Type Treatment Note Patient Information Subjective Observations Pt arrived on time to his appointment and independently ambulated to the room. He was engaged and motivated throughout the session. Treatment Liquids Trialed Thin (IDDSI 0) Solids Trialed Purred (IDDSI 4) Administration Type Cup Single Sip Oral Strategies Upright at 90 degrees, Controlled Bite/Sip Size Pharyngeal Strategies Sitting Upright (90 deg),Turn Head Right,Effortful Swallow, Small Bites and Sips Treatment Activities NMES, PO trials and hyolaryngeal strengthening exercises- including effortful swallow, Aline maneuver, posterior lingual press, in order to rehabilitate BOT movement and facilitate increased airway closure during the swallow. The IDDSI Framework Protocol: IDDSI.1 Assessment Patient Response to Treatment Good Rehab Potential Good Assessment of Improvement Pt reports 1x swallowing difficult since last seen, which consisted of consuming hotdogs/beans cut into small pieces. Pt compliant with NMES. ST placed electrodes in the 3h position with Pt tolerating stim at a level 8.0mA. Pt participated in NMES in conjunction with PO trials and swallow exercises. Pt consumed 4 oz of diced pears and small cheese cubes and 4 oz of thin water via straw. Pt was instructed to utilize effortful swallow with all swallows. For solids, Pt demonstrated adequate bite size and rate, prolonged ap transport, occasional audible swallow reflex, no overt s/s of aspiration. Pt with hoarse vocal quality prior to PO trials. For thin water via straw Pt with adequate suction , good oral acceptance and containment, slight increase in wet vocal quality and audibile swallow reflex. Pt with no coughing or choking with all PO trials. Pt reports he continues to utilize head turn to the right when swallowing and doing his exercises at home. Pt completed 10 reps of Aline exercise. Pt reports no weight changes. ST recommends Pt continue with HEP consisting of swallowing exercises 2-3x/day 10 reps each. Pt verbalized understanding. Recommendations Recommendations Continue Current Diet Liquids Order Thin (IDDSI 0) Diet Order Easy to Chew (IDDSI 7) Medication Recommendations As Tolerated,Whole in Carrier Additional Dietary Needs Single Sips,Controlled Sips, Reminders to Use Strategies Aspiration Precautions Recommended Precautions Right Head Turn,Liquids from Cup Treatment Plan Placement Recommendation after Discharge Home,Home with Home Health, Home Care Appropriate for Continued Therapy Yes Dysphagia Goals STG1. Pt will complete MBSS for objective evaluation of swallow function. POC to be updated following MBSS. 12/09/23: MBSS completed. Please see report for results. STG2. Pt will benefit from education in strengthening exercises to rehabilitate facial/oral movement on right side of face and decrease facial/lingual paresis. STG3. Pt will complete lingual /tongue base strengthening exercises with 80% accuracy independently in order to decrease s/sx oral phase dysphagia. STG4. Patient will complete voice exercises (e.g., resonant voice, syllable warm- up, sustained phonation, and pitch glides) with 80% accuracy independently in order to increase adduction of right vocal fold and improve vocal quality. LTG1. Pt will consume a diet of regular solids and thin liquids without s/sx aspiration in order to safely consume least restrictive diet and return to PLOF. LTG2. Pt will decrease R sided lingual strength/ROM deficits from moderate-severe deficits to mild deficits as measured via perceptual observation by WILDLIFE VETERINARIAN. LTG3. Patient will improve self-perception of voice from a baseline of 05/08 following participation in skilled services. Referrals/Other Recommended Referrals ENT Consult
--- NOTE | 2024-01-20 10:09 | ST.IPDYTX ---
Visit Care Team Role Provider Type Gurpreet Mckenzie DO Attending Provider Physician Family Provider Primary Care Provider Referring Provider Specialty: [facility] Practice Address: [address] [place] [address], [facility] Email: [employer]S[facility] Dysphagia Treatment [facility] [facility] Dysphagia Treatment Start: 11/25/23 11:18 Freq: Status: Active Protocol: Document 01/20/24 10:08 KUSH (Rec: 01/20/24 10:09 KUSH [id number]) Dysphagia Treatment Session Time Visit Start Time 09:45 Visit Stop Time 10:25 Total Visit Minutes 40 Visit Information Visit Number 9 Plan of Care Dates 10/20/23-01/20/24 Setting Assessment Location Outpatient Care Visit Type Note Type Treatment Note Next Note Type Next Note Type Treatment Note Patient Information Subjective Observations Pt arrived on time to his appointment and independently ambulated to the room. He was engaged and motivated throughout the session. Treatment Liquids Trialed Thin (IDDSI 0) Solids Trialed Purred (IDDSI 4) Administration Type Cup Single Sip Oral Strategies Upright at 90 degrees, Controlled Bite/Sip Size Pharyngeal Strategies Sitting Upright (90 deg),Turn Head Right,Effortful Swallow, Small Bites and Sips Treatment Activities NMES, PO trials and hyolaryngeal strengthening exercises- including effortful swallow, Aline maneuver, posterior lingual press, in order to rehabilitate BOT movement and facilitate increased airway closure during the swallow. The IDDSI Framework Protocol: IDDSI.1 Assessment Patient Response to Treatment Good Rehab Potential Good Assessment of Improvement Pt compliant with NMES. ST placed electrodes in the 3h position with Pt tolerating stim at a level 8.0mA. Pt participated in NMES in conjunction with PO trials and swallow exercises. Pt consumed 4 oz of diced pears and small cheese cubes and peanut butter and 4 oz of thin water via straw. Pt was instructed to utilize effortful swallow with all swallows. For solids, Pt demonstrated adequate bite size and rate, prolonged ap transport, occasional audible swallow reflex, no overt s/s of aspiration. Pt with hoarse vocal quality prior to PO trials. Pt reports he has to take small bites and it takes his a lot of time to consume food at home. For thin water via straw Pt with adequate suction, good oral acceptance and containment, slight increase in wet vocal quality and audibile swallow reflex. Pt with no coughing or choking with all PO trials. Pt reports he continues to utilize head turn to the right when swallowing and doing his exercises at home. Pt completed 10 reps of Aline exercise. Pt reports no weight changes. ST recommends Pt continue with HEP consisting of swallowing exercises 2-3x/day 10 reps each. Pt verbalized understanding. Recommendations Recommendations Continue Current Diet Liquids Order Thin (IDDSI 0) Diet Order Easy to Chew (IDDSI 7) Medication Recommendations As Tolerated,Whole in Carrier Comments Pt appears to be safely tolerate diet advance recommendations as indicated Additional Dietary Needs Single Sips,Controlled Sips, Reminders to Use Strategies Aspiration Precautions Recommended Precautions Right Head Turn,Liquids from Cup Treatment Plan Placement Recommendation after Discharge Home,Home with Home Health, Home Care Appropriate for Continued Therapy Yes Therapy Recommendations Continue to follow patient throughout hospital stay. Planned to d/c 08/12/19. Dysphagia Goals STG1. Pt will complete MBSS for objective evaluation of swallow function. POC to be updated following MBSS. 12/09/23: MBSS completed. Please see report for results. STG2. Pt will benefit from education in strengthening exercises to rehabilitate facial/oral movement on right side of face and decrease facial/lingual paresis. STG3. Pt will complete lingual /tongue base strengthening exercises with 80% accuracy independently in order to decrease s/sx oral phase dysphagia. STG4. Patient will complete voice exercises (e.g., resonant voice, syllable warm- up, sustained phonation, and pitch glides) with 80% accuracy independently in order to increase adduction of right vocal fold and improve vocal quality. LTG1. Pt will consume a diet of regular solids and thin liquids without s/sx aspiration in order to safely consume least restrictive diet and return to PLOF. LTG2. Pt will decrease R sided lingual strength/ROM deficits from moderate-severe deficits to mild deficits as measured via perceptual observation by [employer]X [employer]. LTG3. Patient will improve self-perception of voice from a baseline of 2 following participation in skilled services. Referrals/Other Recommended Referrals ENT Consult
--- NOTE | 2024-01-25 10:29 | ST.IPDYTX ---
Visit Care Team Role Provider Type Gurpreet Mckenzie DO Attending Provider Physician Family Provider Primary Care Provider Referring Provider Specialty: Family Practice Address: [address] [place] [address], [id number] Email: [facility] Dysphagia Treatment [facility] Dysph[facility]ia [facility] Start: 11/25/23 11:18 Freq: Status: Active Protocol: Document 01/25/24 10:11 MA (Rec: 01/25/24 10:29 MA [id number]) Dysphagia Treatment Session Time Visit Start Time 09:45 Visit Stop Time 10:25 Total Visit Minutes 40 Visit Information Visit Number 10 Plan of Care Dates 10/20/23-01/20/24 Setting Assessment Location Outpatient Care Visit Type Note Type Treatment Note Next Note Type Next Note Type Treatment Note Patient Information Subjective Observations Pt arrived on time to his appointment and independently ambulated to the room. He was engaged and motivated throughout the session. Treatment Liquids Trialed Thin (IDDSI 0) Solids Trialed Soft & Bite-sized (IDDSI 6), Regular (IDDSI 7) Administration Type Cup Single Sip Oral Strategies Upright at 90 degrees, Controlled Bite/Sip Size Pharyngeal Strategies Sitting Upright (90 deg),Turn Head Right,Effortful Swallow, Small Bites and Sips Treatment Activities NMES, PO trials and hyolaryngeal strengthening exercises- including effortful swallow, Aline maneuver, posterior lingual press, in order to rehabilitate BOT movement and facilitate increased airway closure during the swallow. The IDDSI Framework Protocol: IDDSI.1 Assessment Patient Response to Treatment Good Rehab Potential Good Assessment of Improvement Pt compliant with NMES. ST placed electrodes in the 3h position with Pt tolerating stim at a level 9.0mA. Pt participated in NMES in conjunction with PO trials and swallow exercises. Pt consumed 4 oz of diced peaches and 1 chan cracker with peanut butter and ~4 oz of thin water via straw. Pt reported that he has been tracking his food in a food log and any swallowing difficulties that occur. He reported he choked on milk x1, which he thinks is due to him not clearing the previous bolus from his throat and then taking a sip of liquid, which results in choking. He also reported he choked on stew 1x, however put it through the wire brush maker and did not choke. He states he has an ENT visit on 02/04/24. He reports he has been doing his swallow exercises at home and attempting to turn head to the right. Pt was instructed to utilize effortful swallow with all swallows. For solids, Pt demonstrated adequate bite size and rate, prolonged ap transport, occasional audible swallow reflex, no overt s/s of aspiration. Pt with hoarse vocal quality prior to PO trials. Pt reports he has to take small bites and it takes his a lot of time to consume food at home. He reported 1x feeling of food stuck in throat. For thin water via straw Pt with adequate suction , good oral acceptance and containment, slight increase in wet vocal quality and audible swallow reflex, 1x cough reflex. Pt reports he continues to utilize head turn to the right when swallowing and doing his exercises at home. Pt completed 10 reps of Aline exercise. Pt reports no weight changes. ST recommends Pt continue with HEP consisting of swallowing exercises 2-3x/day 10 reps each. Pt verbalized understanding. Recommendations Recommendations Continue Current Diet Liquids Order Thin (IDDSI 0) Diet Order Easy to Chew (IDDSI 7) Medication Recommendations As Tolerated,Whole in Carrier Comments Pt appears to be safely tolerate diet advance recommendations as indicated Additional Dietary Needs Single Sips,Controlled Sips, Reminders to Use Strategies Aspiration Precautions Recommended Precautions Right Head Turn,Liquids from Cup Treatment Plan Placement Recommendation after Discharge Home,Home with Home Health, Home Care Appropriate for Continued Therapy Yes Therapy Recommendations Continue to follow patient throughout hospital stay. Planned to d/c 08/12/19. Dysphagia Goals STG1. Pt will complete MBSS for objective evaluation of swallow function. POC to be updated following MBSS. 12/09/23: MBSS completed. Please see report for results. STG2. Pt will benefit from education in strengthening exercises to rehabilitate facial/oral movement on right side of face and decrease facial/lingual paresis. STG3. Pt will complete lingual /tongue base strengthening exercises with 80% accuracy independently in order to decrease s/sx oral phase dysphagia. STG4. Patient will complete voice exercises (e.g., resonant voice, syllable warm- up, sustained phonation, and pitch glides) with 80% accuracy independently in order to increase adduction of right vocal fold and improve vocal quality. LTG1. Pt will consume a diet of regular solids and thin liquids without s/sx aspiration in order to safely consume least restrictive diet and return to PLOF. LTG2. Pt will decrease R sided lingual strength/ROM deficits from moderate-severe deficits to mild deficits as measured via perceptual observation by [facility]. LTG3. Patient will improve self-perception of voice from a baseline of 05/08 following participation in [facility] services. Referrals/Other Recommended Referrals ENT Consult
--- NOTE | 2024-01-28 10:10 | ST.IPDYTX ---
Visit Care Team Role Provider Type Gurpreet Mckenzie DO Attending Provider Physician Family Provider Primary Care Provider Referring Provider Specialty: Family Practice Address: [address] [place] [address], [id number] Email: EXTRUDER OPERATOR HORIZONTAL Dysphagia Treatment EXTRUDER OPERATOR HORIZONTAL Dysphagia Treatment Start: 11/25/23 11:18 Freq: Status: Active Protocol: Document 01/28/24 10:02 KUSH (Rec: 01/28/24 10:09 KUSH [id number]) Dysphagia Treatment Session Time Visit Start Time 09:45 Visit Stop Time 10:25 Total Visit Minutes 40 Visit Information Visit Number 11 Plan of Care Dates 01/21/24-04/22/23 Setting Assessment Location Outpatient Care Visit Type Note Type Treatment Note Next Note Type Next Note Type Treatment Note Patient Information Subjective Observations Pt arrived on time to his appointment and independently ambulated to the room. He was engaged and motivated throughout the session. Treatment Liquids Trialed Thin (IDDSI 0) Solids Trialed Soft & Bite-sized (IDDSI 6), Regular (IDDSI 7) Administration Type Cup Single Sip Oral Strategies Upright at 90 degrees, Controlled Bite/Sip Size Pharyngeal Strategies Sitting Upright (90 deg),Turn Head Right,Effortful Swallow, Small Bites and Sips Treatment Activities NMES, PO trials and hyolaryngeal strengthening exercises- including effortful swallow, Aline maneuver, posterior lingual press, in order to rehabilitate BOT movement and facilitate increased airway closure during the swallow. The IDDSI Framework Protocol: IDDSI.1 Assessment Patient Response to Treatment Good Rehab Potential Good Assessment of Improvement Pt compliant with NMES. ST placed electrodes in the 3h position with Pt tolerating stim at a level 9.0mA. Pt participated in NMES in conjunction with PO trials and swallow exercises. Pt consumed 4 oz of diced peaches and 1 chan cracker with peanut butter and ~4 oz of thin water via straw. Pt reported that he has been tracking his food in a food log and any swallowing difficulties that occur. He states his made meatloaf and he was able to eat it when he put it in a blender conveyor operator with gravy. He states he has an ENT visit on 03/09/24 not 02/04/24 . He reports he hasn't been doing his exercises, but will start back doing them. Pt was instructed to utilize effortful swallow with all swallows. For solids, Pt demonstrated adequate bite size and rate, prolonged ap transport, occasional audible swallow reflex, no overt s/s of aspiration. Pt with hoarse vocal quality prior to PO trials. Pt reports he has to take small bites and it takes his a lot of time to consume food at home. He reported 1x feeling of food stuck in throat and exhibited increased throat clearing with all trials this date. For thin water via straw Pt with adequate suction, good oral acceptance and containment, slight increase in wet vocal quality and audible swallow reflex, 1x cough reflex. Pt reports he continues to utilize head turn to the right when swallowing and doing his exercises at home. Pt completed 10 reps of Aline exercise. Pt reports no weight changes. ST recommends Pt continue with HEP consisting of swallowing exercises 2-3x/day 10 reps each. Pt verbalized understanding. Pt POC dates end, however ST is still warranted d/t Pt not reading goals. Recommendations Recommendations Continue Current Diet Liquids Order Thin (IDDSI 0) Diet Order Easy to Chew (IDDSI 7) Medication Recommendations As Tolerated,Whole in Carrier Comments Pt appears to be safely tolerate diet advance recommendations as indicated Additional Dietary Needs Single Sips,Controlled Sips, Reminders to Use Strategies Aspiration Precautions Recommended Precautions Right Head Turn,Liquids from Cup Treatment Plan Placement Recommendation after Discharge Home,Home with Home Health, Home Care Appropriate for Continued Therapy Yes Therapy Recommendations Continue to follow patient throughout hospital stay. Planned to d/c 08/12/19. Dysphagia Goals STG1. Pt will complete MBSS for objective evaluation of swallow function. POC to be updated following MBSS. 12/09/23: MBSS completed. Please see report for results. STG2. Pt will benefit from education in strengthening exercises to rehabilitate facial/oral movement on right side of face and decrease facial/lingual paresis. - CONTINUE STG3. Pt will complete lingual /tongue base strengthening exercises with 80% accuracy independently in order to decrease s/sx oral phase dysphagia.- CONTINUE STG4. Patient will complete voice exercises (e.g., resonant voice, syllable warm- up, sustained phonation, and pitch glides) with 80% accuracy independently in order to increase adduction of right vocal fold and improve vocal quality. - CONTINUE- has not been addressed d/t therapy focusing on swallow. NEW GOAL STG 5: Pt will tolerate applications of NMES for improved swallow function as evidenced by increased toleration of least restrictive PO diet consistencies. LTG1. Pt will consume a diet of regular solids and thin liquids without s/sx aspiration in order to safely consume least restrictive diet and return to PLOF. LTG2. Pt will decrease R sided lingual strength/ROM deficits from moderate-severe deficits to mild deficits as measured via perceptual observation by EXTRUDER OPERATOR HORIZONTAL. LTG3. Patient will improve self-perception of voice from a baseline of 05/08 following participation in [facility] services. Referrals/Other Recommended Referrals ENT Consult
--- NOTE | 2024-01-28 10:10 | ST.OPPOC ---
Physical, Occupational & Speech Therapy At [facility] Visit Care Team Role Provider Type Gurpreet Mckenzie DO Attending Provider Physician Family Provider Primary Care Provider Referring Provider Address: [address] [place] [address], [id number] Speech Pathology Plan of Care Plan of Care Dates 01/21/24-04/22/[address] 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 Pt reports that his symptoms all started with first bite syndrome, in which he would have a sharp pain in the parotid region of his face upon taking his first bite of food. This progressed to the pt having difficulty swallowing solids and his speech becoming gradually more slurred. This all started around 2022. Pt was diagnosed with head and neck cancer and doctors recommended removing lymph nodes on his right side. Pt did not want to pursue this and instead pursued proton therapy. He just finished his last round of proton therapy on October 07. Camron is currently experiencing paresis of the right side of his tongue, drooping of his right eye, and numbness on right side of the tongue. He is currently on a full liquid diet as he is not able to start trialing swallowing solids for about another week due to his recent proton therapy. He has unintentionally lost 35 lbs since his cancer symptoms began. Pt also complains that his voice is hoarse and lower pitch, with vocal symptoms feeling worse first thing in the morning. He also demonstrates inhalatory stridor at rest. The pt complains that pills tend to get stuck in his throat when swallowing. He has tried crushing his medications in the past and he believes they are all crushable, but he doesn't prefer to crush them due to hassle and taste. He also states that liquids feel like they tend to get stuck in the throat a little bit, but ultimately he is able to swallow them. He feels this may be due to a swelling in the throat/ esophagus due to inflammation from the proton therapy. He complains of excessive saliva and phlegm in his throat, though he is not sure if this is due to increased intake of dairy with soft food diet. Pt stated he does not have any history of reflux or asthma. He does not have a known history of aspiration pneumonia. He also has a history of abdominal aortic aneurysm. Camron is retired and lives at home with his . He feels that his symptoms have a mild impact on his ability to function in the community and engage in interpersonal communication, but his is supportive. 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 He states that his goals for speech therapy are to get back to normal and eat solid foods again, as well as strengthen his voice again. Therapy Recommendations Continue to follow patient throughout hospital stay. Planned to d/c 08/12/19. Solid Recommendations Regular Recommended Precautions Right Head Turn,Liquids from Cup Recommended Referrals ENT Consult Short-term Goals 1. Pt will complete MBSS for objective evaluation of swallow function. POC to be updated following MBSS. 2. Pt will benefit from education in strengthening exercises to rehabilitate facial/ oral movement on right side of face and decrease facial/lingual paresis. 3. Pt will complete lingual/tongue base strengthening exercises with 80% accuracy independently in order to decrease s/sx oral phase dysphagia. Long-term Goals Pt will consume a diet of regular solids and thin liquids without s/sx aspiration in order to safely consume least restrictive diet and return to PLOF. Pt will decrease R sided lingual strength/ROM deficits from moderate-severe deficits to mild deficits as measured via perceptual observation by SHAMPOO ASSISTANT. Comment: Electronically Signed by: BLANKA Molina 01/28/24 1010 If you are in agreement with this Plan of Care, please return a signed and dated copy. I have reviewed this Plan of Care and certify that the skilled therapy services above are required to meet the patient?s needs. Physician Signature Date Printed Name and Credentials Clinical Instructor Signature Printed Name and Credentials
--- NOTE | 2024-02-01 10:11 | ST.IPDYTX ---
Visit Care Team Role Provider Type Gurpreet Mckenzie DO Attending Provider Physician Family Provider Primary Care Provider Referring Provider Specialty: Family Practice Address: [address] [place] [address], [id number] Email: [facility] Dysphagia [facility] Start: 11/25/23 11:18 Freq: Status: Active Protocol: Document 02/01/24 10:08 KUSH (Rec: 02/01/24 10:11 KUSH [id number]) Dysphagia Treatment Session Time Visit Start Time 09:45 Visit Stop Time 10:25 Total Visit Minutes 40 Visit Information Visit Number 12 Plan of Care Dates 01/21/24-04/22/23 Setting Assessment Location Outpatient Care Visit Type Note Type Treatment Note Next Note Type Next Note Type Treatment Note Patient Information Subjective Observations Pt arrived on time to his appointment and independently ambulated to the room. He was engaged and motivated throughout the session. Treatment Liquids Trialed Thin (IDDSI 0) Solids Trialed Soft & Bite-sized (IDDSI 6), Regular (IDDSI 7) Administration Type Cup Single Sip Oral Strategies Upright at 90 degrees, Controlled Bite/Sip Size Pharyngeal Strategies Sitting Upright (90 deg),Turn Head Right,Effortful Swallow, Small Bites and Sips Treatment Activities NMES, PO trials and hyolaryngeal strengthening exercises- including effortful swallow, Aline maneuver, posterior lingual press, in order to rehabilitate BOT movement and facilitate increased airway closure during the swallow. The IDDSI Framework Protocol: IDDSI.1 Assessment Patient Response to Treatment Good Rehab Potential Good Assessment of Improvement Pt compliant with NMES. ST placed electrodes in the 3h position with Pt tolerating stim at a level 9.0mA. Pt participated in NMES in conjunction with PO trials and swallow exercises. Pt consumed 4 oz of diced peaches and 2 chan crackers with peanut butter and ~4 oz of thin water via straw. Pt reported that he has been tracking his food in a food log and any swallowing difficulties that occur. He states his made meatloaf and he was able to eat it when he put it in a primer powder blender wet with gravy. He reports he has begun doing his exercises again. Pt was instructed to utilize effortful swallow with all swallows. For solids, Pt demonstrated adequate bite size and rate, prolonged ap transport, occasional audible swallow reflex, no overt s/s of aspiration. Pt with hoarse vocal quality prior to PO trials. Pt reports he has to take small bites and it takes his a lot of time to consume food at home. Intermittent throat clearing. Pt independenntly alternated liquids and solids and turned head to the right when swallowing liquid. For thin water via straw Pt with adequate suction, good oral acceptance and containment, slight increase in wet vocal quality and audible swallow reflex, 1x cough reflex. Pt reports he continues to utilize head turn to the right when swallowing and doing his exercises at home. Pt completed 10 reps of Aline exercise. Pt reports no weight changes. ST recommends Pt continue with HEP consisting of swallowing exercises 2-3x/day 10 reps each. Pt verbalized understanding. Recommendations Recommendations Continue Current Diet Liquids Order Thin (IDDSI 0) Diet Order Easy to Chew (IDDSI 7) Medication Recommendations As Tolerated,Whole in Carrier Comments Pt appears to be safely tolerate diet advance recommendations as indicated Additional Dietary Needs Single Sips,Controlled Sips, Reminders to Use Strategies Aspiration Precautions Recommended Precautions Right Head Turn,Liquids from Cup Treatment Plan Placement Recommendation after Discharge Home,Home with Home Health, Home Care Appropriate for Continued Therapy Yes Therapy Recommendations Continue to follow patient throughout hospital stay. Planned to d/c 08/12/19. Dysphagia Goals STG1. Pt will complete MBSS for objective evaluation of swallow function. POC to be updated following MBSS. 12/09/23: MBSS completed. Please see report for results. STG2. Pt will benefit from education in strengthening exercises to rehabilitate facial/oral movement on right side of face and decrease facial/lingual paresis. - CONTINUE STG3. Pt will complete lingual /tongue base strengthening exercises with 80% accuracy independently in order to decrease s/sx oral phase dysphagia.- CONTINUE STG4. Patient will complete voice exercises (e.g., resonant voice, syllable warm- up, sustained phonation, and pitch glides) with 80% accuracy independently in order to increase adduction of right vocal fold and improve vocal quality. - CONTINUE- has not been addressed d/t therapy focusing on swallow. NEW GOAL STG 5: Pt will tolerate applications of NMES for improved swallow function as evidenced by increased toleration of least restrictive PO diet consistencies. LTG1. Pt will consume a diet of regular solids and thin liquids without s/sx aspiration in order to safely consume least restrictive diet and return to PLOF. LTG2. Pt will decrease R sided lingual strength/ROM deficits from moderate-severe deficits to mild deficits as measured via perceptual observation by COTTON WRINGER. LTG3. Patient will improve self-perception of voice from a baseline of 05/08 following participation in [facility] services. Referrals/Other Recommended Referrals ENT Consult
--- NOTE | 2024-02-03 10:28 | ST.IPDYTX ---
Visit Care Team Role Provider Type Gurpreet Mckenzie DO Attending Provider Physician Family Provider Primary Care Provider Referring Provider Specialty: [facility] Practice Address: [address] [place] [address], [phone] Email: [employer] Dysphagia Treatment [employer] [facility] Dysphagia Treatment Start: 11/25/23 11:18 Freq: Status: Active Protocol: Document 02/03/24 10:10 MA (Rec: 02/03/24 10:12 MA [id number]) Dysphagia Treatment Session Time Visit Start Time 09:45 Visit Stop Time 10:30 Total Visit Minutes 45 Visit Information Visit Number 13 Plan of Care Dates 01/21/24-04/22/23 Setting Assessment Location Outpatient Care Visit Type Note Type Treatment Note Next Note Type Next Note Type Treatment Note Patient Information Subjective Observations Pt arrived on time to his appointment and independently ambulated to the room. He was engaged and motivated throughout the session. Treatment Liquids Trialed Thin (IDDSI 0) Solids Trialed Soft & Bite-sized (IDDSI 6), Regular (IDDSI 7) Administration Type Cup Single Sip Oral Strategies Upright at 90 degrees, Controlled Bite/Sip Size Pharyngeal Strategies Sitting Upright (90 deg),Turn Head Right,Effortful Swallow, Small Bites and Sips Treatment Activities NMES, PO trials and hyolaryngeal strengthening exercises- including effortful swallow, Aline maneuver, posterior lingual press, in order to rehabilitate BOT movement and facilitate increased airway closure during the swallow. The IDDSI Framework Protocol: IDDSI.1 Assessment Patient Response to Treatment Good Rehab Potential Good Assessment of Improvement Pt compliant with NMES. ST placed electrodes in the 3h position with Pt tolerating stim at a level 9.0mA. Pt participated in NMES in conjunction with PO trials and swallow exercises. Pt consumed 2 chan crackers with peanut butter and ~4 oz of thin water via straw. Pt reported that he has been tracking his food in a food log and any swallowing difficulties that occur. He states he has been putting soups in the grain blender, which has helped with swallowing. He reports he has been doing his exercises. Pt was instructed to utilize effortful swallow with all swallows. For solids, Pt demonstrated adequate bite size and rate, prolonged ap transport, occasional audible swallow reflex, no overt s/s of aspiration. Pt with hoarse vocal quality prior to PO trials. Pt reports he has to take small bites and it takes his a lot of time to consume food at home. Intermittent throat clearing with occasional coughing x3. Pt independenntly alternated liquids and solids and turned head to the right when swallowing liquid. For thin water via straw Pt with adequate suction, good oral acceptance and containment, slight increase in wet vocal quality and audible swallow reflex, 1x cough reflex. Pt reports he continues to utilize head turn to the right when swallowing and doing his exercises at home. Pt reports no weight changes. ST recommends Pt continue with HEP consisting of swallowing exercises 2-3x/day 10 reps each. Pt verbalized understanding. Recommendations Recommendations Continue Current Diet Liquids Order Thin (IDDSI 0) Diet Order Easy to Chew (IDDSI 7) Medication Recommendations As Tolerated,Whole in Carrier Comments Pt appears to be safely tolerate diet advance recommendations as indicated Additional Dietary Needs Single Sips,Controlled Sips, Reminders to Use Strategies Aspiration Precautions Recommended Precautions Right Head Turn,Liquids from Cup Treatment Plan Appropriate for Continued Therapy Yes Dysphagia Goals STG1. Pt will complete MBSS for objective evaluation of swallow function. POC to be updated following MBSS. 12/09/23: MBSS completed. Please see report for results. STG2. Pt will benefit from education in strengthening exercises to rehabilitate facial/oral movement on right side of face and decrease facial/lingual paresis. - CONTINUE STG3. Pt will complete lingual /tongue base strengthening exercises with 80% accuracy independently in order to decrease s/sx oral phase dysphagia.- CONTINUE STG4. Patient will complete voice exercises (e.g., resonant voice, syllable warm- up, sustained phonation, and pitch glides) with 80% accuracy independently in order to increase adduction of right vocal fold and improve vocal quality. - CONTINUE- has not been addressed d/t therapy focusing on swallow. NEW GOAL STG 5: Pt will tolerate applications of NMES for improved swallow function as evidenced by increased toleration of least restrictive PO diet consistencies. LTG1. Pt will consume a diet of regular solids and thin liquids without s/sx aspiration in order to safely consume least restrictive diet and return to PLOF. LTG2. Pt will decrease R sided lingual strength/ROM deficits from moderate-severe deficits to mild deficits as measured via perceptual observation by [employer]SEMBLER. LTG3. Patient will improve self-perception of voice from a baseline of 2/[address] skilled services. Referrals/Other Recommended Referrals ENT Consult
--- NOTE | 2024-02-08 10:06 | ST.IPDYTX ---
Visit Care Team Role Provider Type Gurpreet Mckenzie DO Attending Provider Physician Family Provider Primary Care Provider Referring Provider Specialty: Family Practice Address: [address] [place] [address], [id number] Email: GARMENT SORTER Dysphagia Treatment GARMENT SORTER Dysphagia Treatment Start: 11/25/23 11:18 Freq: Status: Active Protocol: Document 02/08/24 10:03 MA (Rec: 02/08/24 10:06 MA [id number]) Dysphagia Treatment Session Time Visit Start Time 09:45 Visit Stop Time 10:20 Total Visit Minutes 25 Visit Information Visit Number 14 Plan of Care Dates 01/21/24-04/22/23 Setting Assessment Location Outpatient Care Visit Type Note Type Treatment Note Next Note Type Next Note Type Treatment Note Patient Information Subjective Observations Pt arrived on time to his appointment and independently ambulated to the room. He was engaged and motivated throughout the session. Treatment Liquids Trialed Thin (IDDSI 0) Solids Trialed Soft & Bite-sized (IDDSI 6), Regular (IDDSI 7) Administration Type Cup Single Sip Oral Strategies Upright at 90 degrees, Controlled Bite/Sip Size Pharyngeal Strategies Sitting Upright (90 deg),Turn Head Right,Effortful Swallow, Small Bites and Sips Treatment Activities NMES, PO trials and hyolaryngeal strengthening exercises- including effortful swallow, Aline maneuver, posterior lingual press, in order to rehabilitate BOT movement and facilitate increased airway closure during the swallow. The IDDSI Framework Protocol: IDDSI.1 Assessment Patient Response to Treatment Good Rehab Potential Good Assessment of Improvement Pt compliant with NMES. ST placed electrodes in the 3h position with Pt tolerating stim at a level 9.0mA. Pt participated in NMES in conjunction with PO trials and swallow exercises. Pt consumed 2 chan crackers with peanut butter and ~4 oz of thin water via straw. Pt reported that he has been tracking his food in a food log and any swallowing difficulties that occur. He states he has been putting soups in the community affairs director, which has helped with swallowing. He reports his made a pork roast last night and he consumed it without difficulties when he cut it up into small pieces with gravy. He does report trouble swallowing medication for arthritis, however able to swallow when taken with cream of wheat vs applesauce. He reports he has been doing his exercises. Pt was instructed to utilize effortful swallow with all swallows. For solids, Pt demonstrated adequate bite size and rate, prolonged ap transport, occasional audible swallow reflex, no overt s/s of aspiration. Pt with hoarse vocal quality prior to PO trials. Pt reports he has to take small bites and it takes his a lot of time to consume food at home. Intermittent throat clearing, however no coughing. Pt independenntly alternated liquids and solids and turned head to the right when swallowing liquid. For thin water via straw Pt with adequate suction, good oral acceptance and containment, slight increase in wet vocal quality and audible swallow reflex. Pt reports he continues to utilize head turn to the right when swallowing and doing his exercises at home. Pt reports no weight changes. ST recommends Pt continue with HEP consisting of swallowing exercises 2-3x/day 10 reps each. Pt verbalized understanding. Recommendations Recommendations Continue Current Diet Liquids Order Thin (IDDSI 0) Diet Order Easy to Chew (IDDSI 7) Medication Recommendations As Tolerated,Whole in Carrier Comments Pt appears to be safely tolerate diet advance recommendations as indicated Additional Dietary Needs Single Sips,Controlled Sips, Reminders to Use Strategies Aspiration Precautions Recommended Precautions Right Head Turn,Liquids from Cup Treatment Plan Placement Recommendation after Discharge Home,Home with Home Health, Home Care Appropriate for Continued Therapy Yes Therapy Recommendations Continue to follow patient throughout hospital stay. Planned to d/c 08/12/19. Dysphagia Goals STG1. Pt will complete MBSS for objective evaluation of swallow function. POC to be updated following MBSS. 12/09/23: MBSS completed. Please see report for results. STG2. Pt will benefit from education in strengthening exercises to rehabilitate facial/oral movement on right side of face and decrease facial/lingual paresis. - CONTINUE STG3. Pt will complete lingual /tongue base strengthening exercises with 80% accuracy independently in order to decrease s/sx oral phase dysphagia.- CONTINUE STG4. Patient will complete voice exercises (e.g., resonant voice, syllable warm- up, sustained phonation, and pitch glides) with 80% accuracy independently in order to increase adduction of right vocal fold and improve vocal quality. - CONTINUE- has not been addressed d/t therapy focusing on swallow. NEW GOAL STG 5: Pt will tolerate applications of NMES for improved swallow function as evidenced by increased toleration of least restrictive PO diet consistencies. LTG1. Pt will consume a diet of regular solids and thin liquids without s/sx aspiration in order to safely consume least restrictive diet and return to PLOF. LTG2. Pt will decrease R sided lingual strength/ROM deficits from moderate-severe deficits to mild deficits as measured via perceptual observation by GARMENT SORTER. LTG3. Patient will improve self-perception of voice from a baseline of 05/08 following participation in [facility] services. Referrals/Other Recommended Referrals ENT Consult
--- NOTE | 2024-02-11 10:17 | ST.IPDYTX ---
Visit Care Team Role Provider Type Gurpreet Mckenzie DO Attending Provider Physician Family Provider Primary Care Provider Referring Provider Specialty: Family Practice Address: [address] [place] [address], [id number] Email: EXHIBITIONS CURATOR Dysphagia Treatment EXHIBITIONS CURATOR Dysphagia Treatment Start: 11/25/23 11:18 Freq: Status: Active Protocol: Document 02/11/24 10:03 MA (Rec: 02/11/24 10:08 MA [id number]) Dysphagia Treatment Session Time Visit Start Time 09:45 Visit Stop Time 10:20 Total Visit Minutes 35 Visit Information Visit Number 15 Plan of Care Dates 01/21/24-04/22/23 Setting Assessment Location Outpatient Care Visit Type Note Type Treatment Note Next Note Type Next Note Type Treatment Note Patient Information Subjective Observations Pt arrived on time to his appointment and independently ambulated to the room. He was engaged and motivated throughout the session. Treatment Liquids Trialed Thin (IDDSI 0) Solids Trialed Soft & Bite-sized (IDDSI 6), Regular (IDDSI 7) Administration Type Cup Single Sip Oral Strategies Upright at 90 degrees, Controlled Bite/Sip Size Pharyngeal Strategies Sitting Upright (90 deg),Turn Head Right,Effortful Swallow, Small Bites and Sips Treatment Activities NMES, PO trials and hyolaryngeal strengthening exercises- including effortful swallow, Aline maneuver, posterior lingual press, in order to rehabilitate BOT movement and facilitate increased airway closure during the swallow. The IDDSI Framework Protocol: IDDSI.1 Assessment Patient Response to Treatment Good Rehab Potential Good Assessment of Improvement Pt reports slight improvements in swallow. Pt compliant with NMES. ST placed electrodes in the 3h position with Pt tolerating stim at a level 9. 0mA. Pt participated in NMES in conjunction with PO trials and swallow exercises. Pt consumed 2 chan crackers with peanut butter and ~4 oz of thin water via straw. Pt reported that he has been tracking his food in a food log and any swallowing difficulties that occur. He states he has been putting soups in the java lead developer, which has helped with swallowing. He reports his made a pork roast last night and he consumed it without difficulties when he cut it up into small pieces with gravy. He does report trouble swallowing medication for arthritis, however able to swallow when taken with cream of wheat vs applesauce. He reports he has been doing his exercises. Pt was instructed to utilize effortful swallow with all swallows. For solids, Pt demonstrated adequate bite size and rate, prolonged ap transport, occasional audible swallow reflex, no overt s/s of aspiration. Pt with hoarse vocal quality prior to PO trials. Pt reports he has to take small bites and it takes his a lot of time to consume food at home. Intermittent throat clearing, however no coughing. Pt independenntly alternated liquids and solids and turned head to the right when swallowing liquid. For thin water via straw Pt with adequate suction, good oral acceptance and containment, slight increase in wet vocal quality and audible swallow reflex. Pt reports he continues to utilize head turn to the right when swallowing and doing his exercises at home. Pt reports no weight changes. ST recommends Pt continue with HEP consisting of swallowing exercises 2-3x/day 10 reps each. Pt verbalized understanding. Recommendations Recommendations Continue Current Diet Liquids Order Thin (IDDSI 0) Diet Order Easy to Chew (IDDSI 7) Medication Recommendations As Tolerated,Whole in Carrier Additional Dietary Needs Single Sips,Controlled Sips, Reminders to Use Strategies Aspiration Precautions Recommended Precautions Right Head Turn,Liquids from Cup Treatment Plan Placement Recommendation after Discharge Home,Home with Home Health, Home Care Appropriate for Continued Therapy Yes Dysphagia Goals STG1. Pt will complete MBSS for objective evaluation of swallow function. POC to be updated following MBSS. 12/09/23: MBSS completed. Please see report for results. STG2. Pt will benefit from education in strengthening exercises to rehabilitate facial/oral movement on right side of face and decrease facial/lingual paresis. - CONTINUE STG3. Pt will complete lingual /tongue base strengthening exercises with 80% accuracy independently in order to decrease s/sx oral phase dysphagia.- CONTINUE STG4. Patient will complete voice exercises (e.g., resonant voice, syllable warm- up, sustained phonation, and pitch glides) with 80% accuracy independently in order to increase adduction of right vocal fold and improve vocal quality. - CONTINUE- has not been addressed d/t therapy focusing on swallow. NEW GOAL STG 5: Pt will tolerate applications of NMES for improved swallow function as evidenced by increased toleration of least restrictive PO diet consistencies. LTG1. Pt will consume a diet of regular solids and thin liquids without s/sx aspiration in order to safely consume least restrictive diet and return to PLOF. LTG2. Pt will decrease R sided lingual strength/ROM deficits from moderate-severe deficits to mild deficits as measured via perceptual observation by EXHIBITIONS CURATOR. LTG3. Patient will improve self-perception of voice from a baseline of 05/08 following participation in [facility] services. Referrals/Other Recommended Referrals ENT Consult
--- NOTE | 2024-02-15 10:22 | ST.IPDYTX ---
Visit Care Team Role Provider Type Gurpreet Mckenzie DO Attending Provider Physician Family Provider Primary Care Provider Referring Provider Specialty: Family Practice Address: [address] [place] [address], [id number] Email: CHEMICAL COMPOUNDER Dysphagia Treatment CHEMICAL COMPOUNDER Dysphagia Treatment Start: 11/25/23 11:18 Freq: Status: Active Protocol: Document 02/15/24 10:15 MA (Rec: 02/15/24 10:21 MA [id number]) Dysphagia Treatment Session Time Visit Start Time 09:45 Visit Stop Time 10:20 Total Visit Minutes 35 Visit Information Visit Number 16 Plan of Care Dates 01/21/24-04/22/23 Setting Assessment Location Outpatient Care Visit Type Note Type Treatment Note Next Note Type Next Note Type Treatment Note Patient Information Subjective Observations Pt arrived on time to his appointment and independently ambulated to the room. He was engaged and motivated throughout the session. Treatment Liquids Trialed Thin (IDDSI 0) Solids Trialed Soft & Bite-sized (IDDSI 6), Regular (IDDSI 7) Administration Type Cup Single Sip Oral Strategies Upright at 90 degrees, Controlled Bite/Sip Size Pharyngeal Strategies Sitting Upright (90 deg),Turn Head Right,Effortful Swallow, Small Bites and Sips Treatment Activities NMES, PO trials and hyolaryngeal strengthening exercises- including effortful swallow, Aline maneuver, posterior lingual press, in order to rehabilitate BOT movement and facilitate increased airway closure during the swallow. The IDDSI Framework Protocol: IDDSI.1 Assessment Patient Response to Treatment Good Rehab Potential Good Assessment of Improvement Pt reports slight improvements in swallow. Pt compliant with NMES. ST placed electrodes in the 3h position with Pt tolerating stim at a level 8. 0mA. Pt participated in NMES in conjunction with PO trials and swallow exercises. Pt consumed 2 chan crackers with peanut butter and ~4 oz of thin water via straw. Pt reported that he has been tracking his food in a food log and any swallowing difficulties that occur. He reports he made a pumpkin pie with his this weekend and had no difficulties eating the filling, however trouble swallowing the crust. He does report trouble swallowing medication for arthritis, however able to swallow when taken with cream of wheat vs applesauce. He reports he has been doing his exercises. Pt was instructed to utilize effortful swallow with all swallows. For solids, Pt demonstrated adequate bite size and rate, prolonged ap transport, occasional audible swallow reflex, no overt s/s of aspiration. Pt with hoarse vocal quality prior to PO trials. Pt reports he has to take small bites and it takes his a lot of time to consume food at home. Intermittent throat clearing, however no coughing. Pt independently alternated liquids and solids and turned head to the right when swallowing liquid. For thin water via straw Pt with adequate suction, good oral acceptance and containment, slight increase in wet vocal quality and audible swallow reflex. Pt reports he continues to utilize head turn to the right when swallowing and doing his exercises at home. Pt reports no weight changes. ST recommends Pt continue with HEP consisting of swallowing exercises 2-3x/day 10 reps each. Pt verbalized understanding. Recommendations Recommendations Continue Current Diet Liquids Order Thin (IDDSI 0) Diet Order Easy to Chew (IDDSI 7) Medication Recommendations As Tolerated,Whole in Carrier Comments Pt appears to be safely tollerate diet advance recommendations as indicated Additional Dietary Needs Single Sips,Controlled Sips, Reminders to Use Strategies Aspiration Precautions Recommended Precautions Right Head Turn,Liquids from Cup Treatment Plan Placement Recommendation after Discharge Home,Home with Home Health, Home Care Appropriate for Continued Therapy Yes Dysphagia Goals STG1. Pt will complete MBSS for objective evaluation of swallow function. POC to be updated following MBSS. 12/09/23: MBSS completed. Please see report for results. STG2. Pt will benefit from education in strengthening exercises to rehabilitate facial/oral movement on right side of face and decrease facial/lingual paresis. - CONTINUE STG3. Pt will complete lingual /tongue base strengthening exercises with 80% accuracy independently in order to decrease s/sx oral phase dysphagia.- CONTINUE STG4. Patient will complete voice exercises (e.g., resonant voice, syllable warm- up, sustained phonation, and pitch glides) with 80% accuracy independently in order to increase adduction of right vocal fold and improve vocal quality. - CONTINUE- has not been addressed d/t therapy focusing on swallow. NEW GOAL STG 5: Pt will tolerate applications of NMES for improved swallow function as evidenced by increased toleration of least restrictive PO diet consistencies. LTG1. Pt will consume a diet of regular solids and thin liquids without s/sx aspiration in order to safely consume least restrictive diet and return to PLOF. LTG2. Pt will decrease R sided lingual strength/ROM deficits from moderate-severe deficits to mild deficits as measured via perceptual observation by CHEMICAL COMPOUNDER. LTG3. Patient will improve self-perception of voice from a baseline of 05/08 following participation in [facility] services. Referrals/Other Recommended Referrals ENT Consult
--- NOTE | 2024-02-22 10:13 | ST.IPDYTX ---
Visit Care Team Role Provider Type Gurpreet Mckenzie DO Attending Provider Physician Family Provider Primary Care Provider Referring Provider Specialty: [facility] Practice Address: [address] [place] [address], [facility] Email: BROOMCORN GRADER Dysphagia Treatment BROOMCORN GRADER Dysphagia Treatment Start: 11/25/23 11:18 Freq: Status: Active Protocol: Document 02/22/24 09:54 MA (Rec: 02/22/24 09:55 MA [id number]) Dysphagia Treatment Session Time Visit Start Time 09:45 Visit Stop Time 10:20 Total Visit Minutes 35 Visit Information Visit Number 17 Plan of Care Dates 01/21/24-04/22/23 Setting Assessment Location Outpatient Care Visit Type Note Type Treatment Note Next Note Type Next Note Type Treatment Note Patient Information Subjective Observations Pt arrived on time to his appointment and independently ambulated to the room. He was engaged and motivated throughout the session. Treatment Liquids Trialed Thin (IDDSI 0) Solids Trialed Soft & Bite-sized (IDDSI 6), Regular (IDDSI 7) Administration Type Cup Single Sip Oral Strategies Upright at 90 degrees, Controlled Bite/Sip Size Pharyngeal Strategies Sitting Upright (90 deg),Turn Head Right,Effortful Swallow, Small Bites and Sips Treatment Activities NMES, PO trials and hyolaryngeal strengthening exercises- including effortful swallow, Aline maneuver, posterior lingual press, in order to rehabilitate BOT movement and facilitate increased airway closure during the swallow. The IDDSI Framework Protocol: IDDSI.1 Assessment Patient Response to Treatment Good Rehab Potential Good Assessment of Improvement Pt reports slight improvements in swallow. Pt compliant with NMES. ST placed electrodes in the 3h position with Pt tolerating stim at a level 8. 0mA. Pt participated in NMES in conjunction with PO trials and swallow exercises. Pt consumed 2 chan crackers with peanut butter, pudding and ~4 oz of thin water via straw. Pt reported that he has been tracking his food in a food log and any swallowing difficulties that occur. He does report trouble swallowing medication for arthritis, however able to swallow when crushed and taken with cream of wheat vs applesauce. He reports he has been doing his exercises. Pt was instructed to utilize effortful swallow with all swallows. For solids, Pt demonstrated adequate bite size and rate, prolonged ap transport, occasional audible swallow reflex, no overt s/s of aspiration. Pt with hoarse vocal quality prior to PO trials. Pt reports he has to take small bites and it takes his a lot of time to consume food at home. Intermittent throat clearing. Pt independently alternated liquids and solids and turned head to the right when swallowing liquid. For thin water via straw Pt with adequate suction, good oral acceptance and containment, slight increase in wet vocal quality and audible swallow reflex. Pt with 1x cough reflex after taking a bite and immediately drinking water. He reports this is what happens at home. Pt reports he continues to utilize head turn to the right when swallowing and doing his exercises at home. Pt reports no weight changes. ST recommends Pt continue with HEP consisting of swallowing exercises 2-3x/day 10 reps each. Pt verbalized understanding. Recommendations Recommendations Continue Current Diet Liquids Order Thin (IDDSI 0) Diet Order Easy to Chew (IDDSI 7) Medication Recommendations As Tolerated,Whole in Carrier Additional Dietary Needs Single Sips,Controlled Sips, Reminders to Use Strategies Aspiration Precautions Recommended Precautions Right Head Turn,Liquids from Cup Treatment Plan Placement Recommendation after Discharge Home Appropriate for Continued Therapy Yes Dysphagia Goals STG1. Pt will complete MBSS for objective evaluation of swallow function. POC to be updated following MBSS. 12/09/23: MBSS completed. Please see report for results. STG2. Pt will benefit from education in strengthening exercises to rehabilitate facial/oral movement on right side of face and decrease facial/lingual paresis. - CONTINUE STG3. Pt will complete lingual /tongue base strengthening exercises with 80% accuracy independently in order to decrease s/sx oral phase dysphagia.- CONTINUE STG4. Patient will complete voice exercises (e.g., resonant voice, syllable warm- up, sustained phonation, and pitch glides) with 80% accuracy independently in order to increase adduction of right vocal fold and improve vocal quality. - CONTINUE- has not been addressed d/t therapy focusing on swallow. NEW GOAL STG 5: Pt will tolerate applications of NMES for improved swallow function as evidenced by increased toleration of least restrictive PO diet consistencies. LTG1. Pt will consume a diet of regular solids and thin liquids without s/sx aspiration in order to safely consume least restrictive diet and return to PLOF. LTG2. Pt will decrease R sided lingual strength/ROM deficits from moderate-severe deficits to mild deficits as measured via perceptual observation by BROOMCORN GRADER. LTG3. Patient will improve self-perception of voice from a baseline of 05/08 following participation in [facility] services.
--- NOTE | 2024-02-29 10:23 | ST.IPDYTX ---
Visit Care Team Role Provider Type Gurpreet Mckenzie DO Attending Provider Physician Family Provider Primary Care Provider Referring Provider Specialty: Family Practice Address: [address] [place] [id number] Email: TECHNICAL ASSOCIATE Dysphagia Treatment TECHNICAL ASSOCIATE Dysphagia Treatment Start: 11/25/23 11:18 Freq: Status: Active Protocol: Document 02/29/24 10:05 MA (Rec: 02/29/24 10:07 MA [id number]) Dysphagia Treatment Session Time Visit Start Time 09:45 Visit Stop Time 10:20 Total Visit Minutes 35 Visit Information Visit Number 18 Plan of Care Dates 01/21/24-04/22/23 Setting Assessment Location Outpatient Care Visit Type Note Type Treatment Note Next Note Type Next Note Type Treatment Note Patient Information Subjective Observations Pt arrived on time to his appointment and independently ambulated to the room. He was engaged and motivated throughout the session. Treatment Liquids Trialed Thin (IDDSI 0) Solids Trialed Soft & Bite-sized (IDDSI 6), Regular (IDDSI 7) Administration Type Cup Single Sip Oral Strategies Upright at 90 degrees, Controlled Bite/Sip Size Pharyngeal Strategies Sitting Upright (90 deg),Turn Head Right,Effortful Swallow, Small Bites and Sips Treatment Activities NMES, PO trials and hyolaryngeal strengthening exercises- including effortful swallow, Aline maneuver, posterior lingual press, in order to rehabilitate BOT movement and facilitate increased airway closure during the swallow. The IDDSI Framework Protocol: IDDSI.1 Assessment Patient Response to Treatment Good Rehab Potential Good Assessment of Improvement Pt reports slight improvements in swallow. Pt compliant with NMES. ST placed electrodes in the 3h position with Pt tolerating stim at a level 8. 0mA. Pt participated in NMES in conjunction with PO trials and swallow exercises. Pt consumed 2 chan crackers with peanut butter, diced peaches and ~4 oz of thin water via straw. Pt reported that he has been tracking his food in a food log and any swallowing difficulties that occur. He reports he had trouble eating Thanksgiving dinner and had to be put in the merchandise executive, and has been eating meat in small pieces. He does report trouble swallowing medication for arthritis, however able to swallow when crushed and taken with cream of wheat vs applesauce. Pt was instructed to utilize effortful swallow with all swallows. For solids, Pt demonstrated adequate bite size and rate, prolonged ap transport, occasional audible swallow reflex, frequent throat clearing and cough x1. Pt with hoarse vocal quality prior to PO trials. Pt reports he has to take small bites and it takes his a lot of time to consume food at home. Pt independently alternated liquids and solids and turned head to the right when swallowing liquid. For thin water via straw Pt with adequate suction, good oral acceptance and containment, slight increase in wet vocal quality and audible swallow reflex. Pt with 1x cough reflex after taking a bite and immediately drinking water. He reports this is what happens at home. Pt reports he continues to utilize head turn to the right when swallowing and doing his exercises at home. Pt reports no weight changes. ST introduced thhe Shakerr swallow exercise and provided a demonstration on a therapy bed. Pt was able to demonstrate back with 100% accuracy. ST advised Pt to not continue exercises if any pain/discomfort occurs. ST recommends Pt continue with HEP consisting of swallowing exercises 2-3x/day 10 reps each. Pt verbalized understanding. Recommendations Recommendations Continue Current Diet Liquids Order Thin (IDDSI 0) Diet Order Easy to Chew (IDDSI 7) Medication Recommendations As Tolerated,Whole in Carrier Additional Dietary Needs Single Sips,Controlled Sips, Reminders to Use Strategies Aspiration Precautions Recommended Precautions Right Head Turn,Liquids from Cup Treatment Plan Placement Recommendation after Discharge Home Appropriate for Continued Therapy Yes Dysphagia Goals STG1. Pt will complete MBSS for objective evaluation of swallow function. POC to be updated following MBSS. 12/09/23: MBSS completed. Please see report for results. STG2. Pt will benefit from education in strengthening exercises to rehabilitate facial/oral movement on right side of face and decrease facial/lingual paresis. - CONTINUE STG3. Pt will complete lingual /tongue base strengthening exercises with 80% accuracy independently in order to decrease s/sx oral phase dysphagia.- CONTINUE STG4. Patient will complete voice exercises (e.g., resonant voice, syllable warm- up, sustained phonation, and pitch glides) with 80% accuracy independently in order to increase adduction of right vocal fold and improve vocal quality. - CONTINUE- has not been addressed d/t therapy focusing on swallow. NEW GOAL STG 5: Pt will tolerate applications of NMES for improved swallow function as evidenced by increased toleration of least restrictive PO diet consistencies. LTG1. Pt will consume a diet of regular solids and thin liquids without s/sx aspiration in order to safely consume least restrictive diet and return to PLOF. LTG2. Pt will decrease R sided lingual strength/ROM deficits from moderate-severe deficits to mild deficits as measured via perceptual observation by TECHNICAL ASSOCIATE. LTG3. Patient will improve self-perception of voice from a baseline of 05/08 following participation in [facility] services. Referrals/Other Recommended Referrals ENT Consult
--- NOTE | 2024-03-08 10:30 | ST.IPDYTX ---
Visit Care Team Role Provider Type Gurpreet Mckenzie DO Attending Provider Physician Family Provider Primary Care Provider Referring Provider Specialty: [facility] Practice Address: [address] [place] [address], [id number] Email: CHARGER OPERATOR Dysphagia Treatment CHARGER OPERATOR Dysphagia Treatment Start: 11/25/23 11:18 Freq: Status: Active Protocol: Document 03/08/24 10:27 MA (Rec: 03/08/24 10:30 MA [id number]) Dysphagia Treatment Session Time Visit Start Time 09:45 Visit Stop Time 10:20 Total Visit Minutes 35 Visit Information Visit Number 19 Plan of Care Dates 01/21/24-04/22/23 Setting Assessment Location Outpatient Care Visit Type Note Type Treatment Note Next Note Type Next Note Type Treatment Note Patient Information Subjective Observations Pt arrived on time to his appointment and independently ambulated to the room. He was engaged and motivated throughout the session. Treatment Liquids Trialed Thin (IDDSI 0) Solids Trialed Soft & Bite-sized (IDDSI 6), Regular (IDDSI 7) Administration Type Cup Single Sip Oral Strategies Upright at 90 degrees, Controlled Bite/Sip Size Pharyngeal Strategies Sitting Upright (90 deg),Turn Head Right,Effortful Swallow, Small Bites and Sips Treatment Activities NMES, PO trials and hyolaryngeal strengthening exercises- including effortful swallow, Aline maneuver, posterior lingual press, in order to rehabilitate BOT movement and facilitate increased airway closure during the swallow. The IDDSI Framework Protocol: IDDSI.1 Assessment Patient Response to Treatment Good Rehab Potential Good Assessment of Improvement Pt reports he had his ENT visit and brought in the report, which indicated right vocal cord paralysis, however complete closure. Pt also reports low white blood count. Pt reports no changes in swallow. Pt compliant with NMES. ST placed electrodes in the 3h position with Pt tolerating stim at a level 8. 0mA. Pt participated in NMES in conjunction with PO trials and swallow exercises. Pt consumed piece of thin cake, diced peaches and ~4 oz of thin water via straw. Pt reported that he has been tracking his food in a food log and any swallowing difficulties that occur. He reports he had trouble eating pie crust from a pie his made, however makes sure he goes slow and takes small bitese. He does report trouble swallowing medication for arthritis, however able to swallow when crushed and taken with cream of wheat vs applesauce. Pt was instructed to utilize effortful swallow with all swallows. For solids, Pt demonstrated adequate bite size and rate, prolonged ap transport, occasional audible swallow reflex, frequent throat clearing and cough x1. Pt with hoarse vocal quality prior to PO trials. Pt reports he has to take small bites and it takes his a lot of time to consume food at home. Pt independently alternated liquids and solids and turned head to the right when swallowing liquid. For thin water via straw Pt with adequate suction, good oral acceptance and containment, slight increase in wet vocal quality and audible swallow reflex. Pt with 1x cough reflex after taking a bite and immediately drinking water. He reports this is what happens at home. Pt reports he continues to utilize head turn to the right when swallowing and doing his exercises at home. Pt reports no weight changes. ST recommends Pt continue with HEP consisting of swallowing exercises 2-3x/day 10 reps each. Pt verbalized understanding. Recommendations Recommendations Continue Current Diet Liquids Order Thin (IDDSI 0) Diet Order Easy to Chew (IDDSI 7) Medication Recommendations As Tolerated,Whole in Carrier Comments Pt appears to be safely tollerate diet advance recommendations as indicated Additional Dietary Needs Single Sips,Controlled Sips, Reminders to Use Strategies Aspiration Precautions Recommended Precautions Right Head Turn,Liquids from Cup Treatment Plan Placement Recommendation after Discharge Home Appropriate for Continued Therapy Yes Dysphagia Goals STG1. Pt will complete MBSS for objective evaluation of swallow function. POC to be updated following MBSS. 12/09/23: MBSS completed. Please see report for results. STG2. Pt will benefit from education in strengthening exercises to rehabilitate facial/oral movement on right side of face and decrease facial/lingual paresis. - CONTINUE STG3. Pt will complete lingual /tongue base strengthening exercises with 80% accuracy independently in order to decrease s/sx oral phase dysphagia.- CONTINUE STG4. Patient will complete voice exercises (e.g., resonant voice, syllable warm- up, sustained phonation, and pitch glides) with 80% accuracy independently in order to increase adduction of right vocal fold and improve vocal quality. - CONTINUE- has not been addressed d/t therapy focusing on swallow. NEW GOAL STG 5: Pt will tolerate applications of NMES for improved swallow function as evidenced by increased toleration of least restrictive PO diet consistencies. LTG1. Pt will consume a diet of regular solids and thin liquids without s/sx aspiration in order to safely consume least restrictive diet and return to PLOF. LTG2. Pt will decrease R sided lingual strength/ROM deficits from moderate-severe deficits to mild deficits as measured via perceptual observation by CHARGER OPERATOR. LTG3. Patient will improve self-perception of voice from a baseline of 05/08 following participation in [facility] ER services. Referrals/Other Recommended Referrals ENT Consult
--- NOTE | 2024-03-10 10:31 | ST.IPDYTX ---
Visit Care Team Role Provider Type Gurpreet Mckenzie DO Attending Provider Physician Family Provider Primary Care Provider Referring Provider Specialty: [facility] Practice Address: [address] [place] [address], [id number] Email: THIRD SHIFT LIEUTENANT Dysphagia Treatment THIRD SHIFT LIEUTENANT Dysphagia Treatment Start: 11/25/23 11:18 Freq: Status: Active Protocol: Document 03/10/24 10:27 MA (Rec: 03/10/24 10:31 MA [id number]) Dysphagia Treatment Session Time Visit Start Time 09:45 Visit Stop Time 10:20 Total Visit Minutes 35 Visit Information Visit Number 20 Plan of Care Dates 01/21/24-04/22/23 Setting Assessment Location Outpatient Care Visit Type Note Type Treatment Note Next Note Type Next Note Type Treatment Note Patient Information Subjective Observations Pt arrived on time to his appointment and independently ambulated to the room. He was engaged and motivated throughout the session. Treatment Liquids Trialed Thin (IDDSI 0) Solids Trialed Soft & Bite-sized (IDDSI 6), Regular (IDDSI 7) Administration Type Cup Single Sip Oral Strategies Upright at 90 degrees, Controlled Bite/Sip Size Pharyngeal Strategies Sitting Upright (90 deg),Turn Head Right,Effortful Swallow, Small Bites and Sips Treatment Activities NMES, PO trials and hyolaryngeal strengthening exercises- including effortful swallow, Aline maneuver, posterior lingual press, in order to rehabilitate BOT movement and facilitate increased airway closure during the swallow. The IDDSI Framework Protocol: IDDSI.1 Assessment Patient Response to Treatment Good Rehab Potential Good Assessment of Improvement Pt compliant with NMES. ST placed electrodes in the 3h position with Pt tolerating stim at a level 8.0mA. Pt participated in NMES in conjunction with PO trials and swallow exercises. Pt consumed chan crackers and pudding and ~4 oz of thin water via straw. Pt reported that he has been tracking his food in a food log and any swallowing difficulties that occur. He does report trouble swallowing medication for arthritis, however able to swallow when crushed and taken with cream of wheat vs applesauce. Pt was instructed to utilize effortful swallow with all swallows. For solids, Pt demonstrated adequate bite size and rate, prolonged ap transport, occasional audible swallow reflex, frequent throat clearing and cough x1. Pt with hoarse vocal quality prior to PO trials. Pt reports he has to take small bites and it takes his a lot of time to consume food at home. Pt independently alternated liquids and solids and turned head to the right when swallowing liquid. For thin water via straw Pt with adequate suction, good oral acceptance and containment, slight increase in wet vocal quality and audible swallow reflex. Pt with 1x cough reflex after taking a bite and immediately drinking water. He reports this is what happens at home. Pt reports he continues to utilize head turn to the right when swallowing and doing his exercises at home. Pt reports no weight changes. Pt wanted to review swallow exercises to ensure he was completing them correctly. Pt demonstrated exercises with 100% accuracy. ST recommends Pt continue with HEP consisting of swallowing exercises 2-3x/day 10 reps each. Pt verbalized understanding. Recommendations Recommendations Continue Current Diet Liquids Order Thin (IDDSI 0) Diet Order Easy to Chew (IDDSI 7) Medication Recommendations As Tolerated,Whole in Carrier Comments Pt appears to be safely tollerate diet advance recommendations as indicated Additional Dietary Needs Single Sips,Controlled Sips, Reminders to Use Strategies Aspiration Precautions Recommended Precautions Right Head Turn,Liquids from Cup Treatment Plan Placement Recommendation after Discharge Home Appropriate for Continued Therapy Yes Dysphagia Goals STG1. Pt will complete MBSS for objective evaluation of swallow function. POC to be updated following MBSS. 12/09/23: MBSS completed. Please see report for results. STG2. Pt will benefit from education in strengthening exercises to rehabilitate facial/oral movement on right side of face and decrease facial/lingual paresis. - CONTINUE STG3. Pt will complete lingual /tongue base strengthening exercises with 80% accuracy independently in order to decrease s/sx oral phase dysphagia.- CONTINUE STG4. Patient will complete voice exercises (e.g., resonant voice, syllable warm- up, sustained phonation, and pitch glides) with 80% accuracy independently in order to increase adduction of right vocal fold and improve vocal quality. - CONTINUE- has not been addressed d/t therapy focusing on swallow. NEW GOAL STG 5: Pt will tolerate applications of NMES for improved swallow function as evidenced by increased toleration of least restrictive PO diet consistencies. LTG1. Pt will consume a diet of regular solids and thin liquids without s/sx aspiration in order to safely consume least restrictive diet and return to PLOF. LTG2. Pt will decrease R sided lingual strength/ROM deficits from moderate-severe deficits to mild deficits as measured via perceptual observation by THIRD SHIFT LIEUTENANT. LTG3. Patient will improve self-perception of voice from a baseline of 05/08 following participation in skilled services. Referrals/Other Recommended Referrals ENT Consult
--- NOTE | 2024-03-14 10:31 | ST.IPDYTX ---
Visit Care Team Role Provider Type Gurpreet Mckenzie DO Attending Provider Physician Family Provider Primary Care Provider Referring Provider Specialty: [facility] Practice Address: [address] [place] [address], [id number] Email: LABORER DEMOLITION Dysphagia Treatment LABORER DEMOLITION Dysphagia Treatment Start: 11/25/23 11:18 Freq: Status: Active Protocol: Document 03/14/24 09:59 MA (Rec: 03/14/24 10:06 MA [id number]) Dysphagia Treatment Session Time Visit Start Time 09:45 Visit Stop Time 10:20 Total Visit Minutes 35 Visit Information Visit Number 21 Plan of Care Dates 01/21/24-04/22/23 Setting Assessment Location Outpatient Care Visit Type Note Type Treatment Note Next Note Type Next Note Type Treatment Note Patient Information Subjective Observations Pt arrived on time to his appointment and independently ambulated to the room. He was engaged and motivated throughout the session. Treatment Liquids Trialed Thin (IDDSI 0) Solids Trialed Soft & Bite-sized (IDDSI 6) Administration Type Cup Single Sip Oral Strategies Upright at 90 degrees, Controlled Bite/Sip Size Pharyngeal Strategies Sitting Upright (90 deg),Turn Head Right,Effortful Swallow, Small Bites and Sips Treatment Activities NMES, PO trials and hyolaryngeal strengthening exercises- including effortful swallow, Aline maneuver, posterior lingual press, in order to rehabilitate BOT movement and facilitate increased airway closure during the swallow. The IDDSI Framework Protocol: IDDSI.1 Assessment Patient Response to Treatment Excellent Rehab Potential Good Assessment of Improvement Pt compliant with NMES. ST placed electrodes in the 3h position with Pt tolerating stim at a level 8.0mA. Pt participated in NMES in conjunction with PO trials and swallow exercises. Pt consumed 2 small cookies and 4 oz of pudding and ~4 oz of thin water via cup. Pt reported that he has been tracking his food in a food log and any swallowing difficulties that occur. He reports slight trouble swallowing his pancakes. Pt was instructed to utilize effortful swallow with all swallows. For solids, Pt demonstrated adequate bite size and rate, prolonged ap transport, occasional audible swallow reflex. Pt with hoarse vocal quality prior to PO trials, however appears to be improved. Pt with occasional throat clearing throughout session. Pt reports he has to take small bites and it takes his a lot of time to consume food at home. Pt independently alternated liquids and solids and turned head to the right when swallowing liquid. For thin water via cup Pt with adequate suction, good oral acceptance and containment, slight increase in wet vocal quality and audible swallow reflex. Pt reports he continues to utilize head turn to the right when swallowing and doing his exercises at home. Pt reports no weight changes. Pt wanted to review swallow exercises to ensure he was completing them correctly . Pt demonstrated exercises with 100% accuracy. ST recommends Pt continue with HEP consisting of swallowing exercises 2-3x/day 10 reps each. Pt verbalized understanding. Recommendations Recommendations Continue Current Diet Liquids Order Thin (IDDSI 0) Diet Order Easy to Chew (IDDSI 7) Medication Recommendations As Tolerated,Whole in Carrier Comments Pt appears to be safely tollerate diet advance recommendations as indicated Additional Dietary Needs Single Sips,Controlled Sips Aspiration Precautions Recommended Precautions Right Head Turn,Liquids from Cup Treatment Plan Placement Recommendation after Discharge Home Appropriate for Continued Therapy Yes Dysphagia Goals STG1. Pt will complete MBSS for objective evaluation of swallow function. POC to be updated following MBSS. 12/09/23: MBSS completed. Please see report for results. STG2. Pt will benefit from education in strengthening exercises to rehabilitate facial/oral movement on right side of face and decrease facial/lingual paresis. - CONTINUE STG3. Pt will complete lingual /tongue base strengthening exercises with 80% accuracy independently in order to decrease s/sx oral phase dysphagia.- CONTINUE STG4. Patient will complete voice exercises (e.g., resonant voice, syllable warm- up, sustained phonation, and pitch glides) with 80% accuracy independently in order to increase adduction of right vocal fold and improve vocal quality. - CONTINUE- has not been addressed d/t therapy focusing on swallow. NEW GOAL STG 5: Pt will tolerate applications of NMES for improved swallow function as evidenced by increased toleration of least restrictive PO diet consistencies. LTG1. Pt will consume a diet of regular solids and thin liquids without s/sx aspiration in order to safely consume least restrictive diet and return to PLOF. LTG2. Pt will decrease R sided lingual strength/ROM deficits from moderate-severe deficits to mild deficits as measured via perceptual observation by LABORER DEMOLITION. LTG3. Patient will improve self-perception of voice from a baseline of 05/08 following participation in skilled services. Referrals/Other Recommended Referrals ENT Consult
--- NOTE | 2024-03-16 10:13 | ST.IPDYTX ---
Visit Care Team Role Provider Type Gurpreet Mckenzie DO Attending Provider Physician Family Provider Primary Care Provider Referring Provider Specialty: [facility] Practice Address: [address] [place] [address], [id number] Email: FAST FOOD COOK Dysphagia Treatment [employer] Dysphagia Treatment Start: 11/25/23 11:18 Freq: Status: Active Protocol: Document 03/16/24 10:00 MA (Rec: 03/16/24 10:02 MA [id number]) Dysphagia Treatment Session Time Visit Start Time 09:45 Visit Stop Time 10:20 Total Visit Minutes 35 Visit Information Visit Number 22 Plan of Care Dates 01/21/24-04/22/23 Setting Assessment Location Outpatient Care Visit Type Note Type Treatment Note Next Note Type Next Note Type Treatment Note Patient Information Subjective Observations Pt arrived on time to his appointment and independently ambulated to the room. He was engaged and motivated throughout the session. Treatment Liquids Trialed Thin (IDDSI 0) Solids Trialed Soft & Bite-sized (IDDSI 6) Administration Type Cup Single Sip Oral Strategies Upright at 90 degrees, Controlled Bite/Sip Size Pharyngeal Strategies Sitting Upright (90 deg),Turn Head Right,Effortful Swallow, Small Bites and Sips Treatment Activities NMES, PO trials and hyolaryngeal strengthening exercises- including effortful swallow, Aline maneuver, posterior lingual press, in order to rehabilitate BOT movement and facilitate increased airway closure during the swallow. The IDDSI Framework Protocol: IDDSI.1 Assessment Patient Response to Treatment Excellent Rehab Potential Good Assessment of Improvement Pt compliant with NMES. ST placed electrodes in the 3h position with Pt tolerating stim at a level 8.0mA. Pt participated in NMES in conjunction with PO trials and swallow exercises. Pt consumed 1 slice of pie and ~4 oz of thin water via cup. Pt reported that he has been tracking his food in a food log and any swallowing difficulties that occur. He reports slight trouble swallowing his pancakes. Pt was instructed to utilize effortful swallow with all swallows. For solids, Pt demonstrated adequate bite size and rate, prolonged ap transport, occasional audible swallow reflex. Pt with hoarse vocal quality prior to PO trials, however appears to be improved. Pt with occasional throat clearing throughout session. Pt reports he has to take small bites and it takes his a lot of time to consume food at home. Pt independently alternated liquids and solids and turned head to the right when swallowing liquid. For thin water via cup Pt with adequate suction, good oral acceptance and containment, slight increase in wet vocal quality and audible swallow reflex. Pt reports he continues to utilize head turn to the right when swallowing and doing his exercises at home. Pt reports no weight changes. Pt wanted to review swallow exercises to ensure he was completing them correctly . Pt demonstrated exercises with 100% accuracy. ST recommends Pt continue with HEP consisting of swallowing exercises 2-3x/day 10 reps each. Pt verbalized understanding. Recommendations Recommendations Continue Current Diet Liquids Order Thin (IDDSI 0) Diet Order Easy to Chew (IDDSI 7) Medication Recommendations As Tolerated,Whole in Carrier Comments Pt appears to be safely tollerate diet advance recommendations as indicated Additional Dietary Needs Single Sips Aspiration Precautions Recommended Precautions Right Head Turn,Liquids from Cup Treatment Plan Placement Recommendation after Discharge Home Appropriate for Continued Therapy Yes Dysphagia Goals STG1. Pt will complete MBSS for objective evaluation of swallow function. POC to be updated following MBSS. 12/09/23: MBSS completed. Please see report for results. STG2. Pt will benefit from education in strengthening exercises to rehabilitate facial/oral movement on right side of face and decrease facial/lingual paresis. - CONTINUE STG3. Pt will complete lingual /tongue base strengthening exercises with 80% accuracy independently in order to decrease s/sx oral phase dysphagia.- CONTINUE STG4. Patient will complete voice exercises (e.g., resonant voice, syllable warm- up, sustained phonation, and pitch glides) with 80% accuracy independently in order to increase adduction of right vocal fold and improve vocal quality. - CONTINUE- has not been addressed d/t therapy focusing on swallow. NEW GOAL STG 5: Pt will tolerate applications of NMES for improved swallow function as evidenced by increased toleration of least restrictive PO diet consistencies. LTG1. Pt will consume a diet of regular solids and thin liquids without s/sx aspiration in order to safely consume least restrictive diet and return to PLOF. LTG2. Pt will decrease R sided lingual strength/ROM deficits from moderate-severe deficits to mild deficits as measured via perceptual observation by FAST FOOD COOK. LTG3. Patient will improve self-perception of voice from a baseline of 05/08 following participation in skilled services. Referrals/Other Recommended Referrals ENT Consult
--- NOTE | 2024-03-21 10:20 | ST.IPDYTX ---
Visit Care Team Role Provider Type Gurpreet Mckenzie DO Attending Provider Physician Family Provider Primary Care Provider Referring Provider Specialty: [facility] Practice Address: [address] [place] [address], [id number] Email: NEUROLOGY DIRECTOR Dysphagia Treatment NEUROLOGY DIRECTOR Dysphagia Treatment Start: 11/25/23 11:18 Freq: Status: Active Protocol: Document 03/21/24 10:11 MA (Rec: 03/21/24 10:12 MA [id number]) Dysphagia Treatment Session Time Visit Start Time 09:45 Visit Stop Time 10:20 Total Visit Minutes 35 Visit Information Visit Number 23 Plan of Care Dates 01/21/24-04/22/23 Setting Assessment Location Outpatient Care Visit Type Note Type Treatment Note Next Note Type Next Note Type Treatment Note Patient Information Subjective Observations Pt arrived on time to his appointment and independently ambulated to the room. He was engaged and motivated throughout the session. Treatment Liquids Trialed Thin (IDDSI 0) Solids Trialed Regular (IDDSI 7) Administration Type Straw Oral Strategies Upright at 90 degrees, Controlled Bite/Sip Size Pharyngeal Strategies Sitting Upright (90 deg),Turn Head Right,Effortful Swallow, Small Bites and Sips Treatment Activities NMES, PO trials and hyolaryngeal strengthening exercises- including effortful swallow, Aline maneuver, posterior lingual press, in order to rehabilitate BOT movement and facilitate increased airway closure during the swallow. The IDDSI Framework Protocol: IDDSI.1 Assessment Patient Response to Treatment Excellent Rehab Potential Good Assessment of Improvement Pt compliant with NMES. ST placed electrodes in the 3h position with Pt tolerating stim at a level 8.0mA. Pt participated in NMES in conjunction with PO trials and swallow exercises. Pt consumed 2 hard cookies and ~4 oz of thin water via cup. Pt reported that he has been tracking his food in a food log and any swallowing difficulties that occur. Pt was instructed to utilize effortful swallow with all swallows. For solids, Pt demonstrated adequate bite size and rate, prolonged ap transport, occasional audible swallow reflex. Pt with hoarse vocal quality prior to PO trials, however appears to be improved. Pt with occasional throat clearing throughout session. Pt reports he has to take small bites and it takes his a lot of time to consume food at home. Pt independently alternated liquids and solids and turned head to the right when swallowing liquid. For thin water via cup Pt with adequate suction, good oral acceptance and containment, slight increase in wet vocal quality and audible swallow reflex. Pt reports he continues to utilize head turn to the right when swallowing and doing his exercises at home. Pt reports no weight changes. Pt wanted to review swallow exercises to ensure he was completing them correctly . Pt demonstrated exercises with 100% accuracy. ST recommends Pt continue with HEP consisting of swallowing exercises 2-3x/day 10 reps each. Pt verbalized understanding. Recommendations Recommendations Continue Current Diet Liquids Order Thin (IDDSI 0) Diet Order Easy to Chew (IDDSI 7) Medication Recommendations As Tolerated,Whole in Carrier Comments Pt appears to be safely tollerate diet advance recommendations as indicated Additional Dietary Needs Single Sips Aspiration Precautions Recommended Precautions Right Head Turn,Liquids from Cup Treatment Plan Placement Recommendation after Discharge Home Appropriate for Continued Therapy Yes Dysphagia Goals STG1. Pt will complete MBSS for objective evaluation of swallow function. POC to be updated following MBSS. 12/09/23: MBSS completed. Please see report for results. STG2. Pt will benefit from education in strengthening exercises to rehabilitate facial/oral movement on right side of face and decrease facial/lingual paresis. - CONTINUE STG3. Pt will complete lingual /tongue base strengthening exercises with 80% accuracy independently in order to decrease s/sx oral phase dysphagia.- CONTINUE STG4. Patient will complete voice exercises (e.g., resonant voice, syllable warm- up, sustained phonation, and pitch glides) with 80% accuracy independently in order to increase adduction of right vocal fold and improve vocal quality. - CONTINUE- has not been addressed d/t therapy focusing on swallow. NEW GOAL STG 5: Pt will tolerate applications of NMES for improved swallow function as evidenced by increased toleration of least restrictive PO diet consistencies. LTG1. Pt will consume a diet of regular solids and thin liquids without s/sx aspiration in order to safely consume least restrictive diet and return to PLOF. LTG2. Pt will decrease R sided lingual strength/ROM deficits from moderate-severe deficits to mild deficits as measured via perceptual observation by NEUROLOGY DIRECTOR. LTG3. Patient will improve self-perception of voice from a baseline of 05/08 following participation in skilled services.
--- NOTE | 2024-03-24 10:19 | ST.IPDYTX ---
Visit Care Team Role Provider Type Gurpreet Mckenzie DO Attending Provider Physician Family Provider Primary Care Provider Referring Provider Specialty: [facility] Practice Address: [address] [place] [address], [id number] Email: SENIOR LINUX ENGINEER Dysphagia Treatment SENIOR LINUX ENGINEER Dysphagia Treatment Start: 11/25/23 11:18 Freq: Status: Active Protocol: Document 03/24/24 09:59 MA (Rec: 03/24/24 10:02 MA [id number]) Dysphagia Treatment Session Time Visit Start Time 09:45 Visit Stop Time 10:20 Total Visit Minutes 35 Visit Information Visit Number 24 Plan of Care Dates 01/21/24-04/22/23 Setting Assessment Location Outpatient Care Visit Type Note Type Treatment Note Next Note Type Next Note Type Treatment Note Patient Information Subjective Observations Pt arrived on time to his appointment and independently ambulated to the room. He was engaged and motivated throughout the session. Treatment Liquids Trialed Thin (IDDSI 0) Solids Trialed Purred (IDDSI 4),Regular ( IDDSI 7) Administration Type Straw Oral Strategies Upright at 90 degrees, Controlled Bite/Sip Size Pharyngeal Strategies Sitting Upright (90 deg),Turn Head Right,Effortful Swallow, Small Bites and Sips Treatment Activities NMES, PO trials and hyolaryngeal strengthening exercises- including effortful swallow, Aline maneuver, posterior lingual press, in order to rehabilitate BOT movement and facilitate increased airway closure during the swallow. The IDDSI Framework Protocol: IDDSI.1 Assessment Patient Response to Treatment Excellent Rehab Potential Good Assessment of Improvement Pt compliant with NMES. ST placed electrodes in the 3h position with Pt tolerating stim at a level 8.0mA. Pt participated in NMES in conjunction with PO trials and swallow exercises. Pt consumed 2 chan crackers and peanut butter, 4 oz of pudding, and ~4 oz of thin water via cup. Pt reported that he has been tracking his food in a food log and any swallowing difficulties that occur. He reports trouble swallowing turkey over the holidays and had to blend it with gravy. Pt was instructed to utilize effortful swallow with all swallows. For solids, Pt demonstrated adequate bite size and rate, prolonged ap transport, occasional audible swallow reflex. Pt with 1x cough reflex, which may be d/t chan crackers being crumbly . Pt with hoarse vocal quality prior to PO trials, however appears to be improved. Pt with occasional throat clearing throughout session. Pt reports he has to take small bites and it takes his a lot of time to consume food at home. Pt independently alternated liquids and solids and turned head to the right when swallowing liquid. For thin water via cup Pt with adequate suction, good oral acceptance and containment, slight increase in wet vocal quality and audible swallow reflex. Pt reports he continues to utilize head turn to the right when swallowing and doing his exercises at home. Pt reports no weight changes. Pt wanted to review swallow exercises to ensure he was completing them correctly . Pt demonstrated exercises with 100% accuracy. ST recommends Pt continue with HEP consisting of swallowing exercises 2-3x/day 10 reps each. Pt verbalized understanding. Recommendations Recommendations Continue Current Diet Liquids Order Thin (IDDSI 0) Diet Order Easy to Chew (IDDSI 7) Medication Recommendations As Tolerated,Whole in Carrier Additional Dietary Needs Single Sips Aspiration Precautions Recommended Precautions Right Head Turn,Liquids from Cup Treatment Plan Placement Recommendation after Discharge Home Appropriate for Continued Therapy Yes Dysphagia Goals STG1. Pt will complete MBSS for objective evaluation of swallow function. POC to be updated following MBSS. 12/09/23: MBSS completed. Please see report for results. STG2. Pt will benefit from education in strengthening exercises to rehabilitate facial/oral movement on right side of face and decrease facial/lingual paresis. - CONTINUE STG3. Pt will complete lingual /tongue base strengthening exercises with 80% accuracy independently in order to decrease s/sx oral phase dysphagia.- CONTINUE STG4. Patient will complete voice exercises (e.g., resonant voice, syllable warm- up, sustained phonation, and pitch glides) with 80% accuracy independently in order to increase adduction of right vocal fold and improve vocal quality. - CONTINUE- has not been addressed d/t therapy focusing on swallow. NEW GOAL STG 5: Pt will tolerate applications of NMES for improved swallow function as evidenced by increased toleration of least restrictive PO diet consistencies. LTG1. Pt will consume a diet of regular solids and thin liquids without s/sx aspiration in order to safely consume least restrictive diet and return to PLOF. LTG2. Pt will decrease R sided lingual strength/ROM deficits from moderate-severe deficits to mild deficits as measured via perceptual observation by SENIOR LINUX ENGINEER. LTG3. Patient will improve self-perception of voice from a baseline of 05/08 following participation in [facility] services.
--- NOTE | 2024-03-30 10:19 | ST.IPDYTX ---
Visit Care Team Role Provider Type Gurpreet Mckenzie DO Attending Provider Physician Family Provider Primary Care Provider Referring Provider Specialty: Family Practice Address: [address] [place] [address], [id number] Email: DERRICK BOAT OPERATOR Dysphagia Treatment DERRICK BOAT OPERATOR Dysphagia Treatment Start: 11/25/23 11:18 Freq: Status: Active Protocol: Document 03/30/24 09:57 MA (Rec: 03/30/24 09:59 MA [id number]) Dysphagia Treatment Session Time Visit Start Time 09:45 Visit Stop Time 10:20 Total Visit Minutes 35 Visit Information Visit Number 25 Plan of Care Dates 01/21/24-04/22/23 Setting Assessment Location Outpatient Care Visit Type Note Type Treatment Note Next Note Type Next Note Type Treatment Note Patient Information Subjective Observations Pt arrived on time to his appointment and independently ambulated to the room. He was engaged and motivated throughout the session. Treatment Liquids Trialed Thin (IDDSI 0) Solids Trialed Purred (IDDSI 4),Regular ( IDDSI 7) Administration Type Straw Oral Strategies Upright at 90 degrees, Controlled Bite/Sip Size Pharyngeal Strategies Sitting Upright (90 deg),Turn Head Right,Effortful Swallow, Small Bites and Sips Treatment Activities NMES, PO trials and hyolaryngeal strengthening exercises- including effortful swallow, Aline maneuver, posterior lingual press, in order to rehabilitate BOT movement and facilitate increased airway closure during the swallow. The IDDSI Framework Protocol: IDDSI.1 Assessment Patient Response to Treatment Excellent Rehab Potential Good Assessment of Improvement Pt reports he has a CT scan tomorrow. Pt compliant with NMES. ST placed electrodes in the 3h position with Pt tolerating stim at a level 8. 0mA. Pt participated in NMES in conjunction with PO trials and swallow exercises. Pt consumed 2 chan crackers and peanut butter, 4 oz of diced peaches, and ~4 oz of thin water via cup. Pt reported that he has been tracking his food in a food log and any swallowing difficulties that occur. He reports trouble swallowing turkey over the holidays and had to blend it with gravy. Pt was instructed to utilize effortful swallow with all swallows. For solids, Pt demonstrated adequate bite size and rate, prolonged ap transport, occasional audible swallow reflex. Pt with 1x cough reflex, which may be d/t chan crackers being crumbly . Pt with hoarse vocal quality prior to PO trials, however appears to be improved. Pt with occasional throat clearing throughout session. Pt reports he has to take small bites and it takes his a lot of time to consume food at home. Pt independently alternated liquids and solids and turned head to the right when swallowing liquid. For thin water via cup Pt with adequate suction, good oral acceptance and containment, slight increase in wet vocal quality and audible swallow reflex. Pt reports he continues to utilize head turn to the right when swallowing and doing his exercises at home. Pt reports no weight changes. Pt wanted to review swallow exercises to ensure he was completing them correctly . Pt demonstrated exercises with 100% accuracy. ST recommends Pt continue with HEP consisting of swallowing exercises 2-3x/day 10 reps each. Pt verbalized understanding. Recommendations Recommendations Continue Current Diet Liquids Order Thin (IDDSI 0) Diet Order Easy to Chew (IDDSI 7) Medication Recommendations As Tolerated,Whole in Carrier Additional Dietary Needs Single Sips Aspiration Precautions Recommended Precautions Right Head Turn,Liquids from Cup Treatment Plan Placement Recommendation after Discharge Home Appropriate for Continued Therapy Yes Dysphagia Goals STG1. Pt will complete MBSS for objective evaluation of swallow function. POC to be updated following MBSS. 12/09/23: MBSS completed. Please see report for results. STG2. Pt will benefit from education in strengthening exercises to rehabilitate facial/oral movement on right side of face and decrease facial/lingual paresis. - CONTINUE STG3. Pt will complete lingual /tongue base strengthening exercises with 80% accuracy independently in order to decrease s/sx oral phase dysphagia.- CONTINUE STG4. Patient will complete voice exercises (e.g., resonant voice, syllable warm- up, sustained phonation, and pitch glides) with 80% accuracy independently in order to increase adduction of right vocal fold and improve vocal quality. - CONTINUE- has not been addressed d/t therapy focusing on swallow. NEW GOAL STG 5: Pt will tolerate applications of NMES for improved swallow function as evidenced by increased toleration of least restrictive PO diet consistencies. LTG1. Pt will consume a diet of regular solids and thin liquids without s/sx aspiration in order to safely consume least restrictive diet and return to PLOF. LTG2. Pt will decrease R sided lingual strength/ROM deficits from moderate-severe deficits to mild deficits as measured via perceptual observation by DERRICK BOAT OPERATOR. LTG3. Patient will improve self-perception of voice from a baseline of 05/08 following participation in [facility] services.
--- NOTE | 2024-04-07 14:19 | ST.IPDYTX ---
Visit Care Team Role Provider Type Gurpreet Mckenzie DO Attending Provider Physician Family Provider Primary Care Provider Referring Provider Specialty: [facility] Practice Address: [address] [place] [address], [facility] Email: SECURITY SYSTEMS INSTALLER Dysphagia Treatment SECURITY SYSTEMS INSTALLER Dysphagia Treatment Start: 11/25/23 11:18 Freq: Status: Active Protocol: Document 04/07/24 14:11 MA (Rec: 04/07/24 14:19 MA [id number]) Dysphagia Treatment Session Time Visit Start Time 13:45 Visit Stop Time 14:20 Total Visit Minutes 35 Visit Information Visit Number 26 Plan of Care Dates 01/21/24-04/22/23 Setting Assessment Location Outpatient Care Visit Type Note Type Treatment Note Next Note Type Next Note Type Treatment Note Patient Information Subjective Observations Pt arrived on time to his appointment and independently ambulated to the room. He was engaged and motivated throughout the session. Treatment Liquids Trialed Thin (IDDSI 0) Solids Trialed Purred (IDDSI 4),Regular ( IDDSI 7) Administration Type Straw Oral Strategies Upright at 90 degrees, Controlled Bite/Sip Size Pharyngeal Strategies Sitting Upright (90 deg),Turn Head Right,Effortful Swallow, Small Bites and Sips Treatment Activities NMES, PO trials and hyolaryngeal strengthening exercises- including effortful swallow, Aline maneuver, posterior lingual press, in order to rehabilitate BOT movement and facilitate increased airway closure during the swallow. The IDDSI Framework Protocol: IDDSI.1 Assessment Patient Response to Treatment Excellent Rehab Potential Good Assessment of Improvement Pt reports he had a CT scan completed last week with the following results: IMPRESSION: Decreased size of right 2A centrally necrotic mass/lymph node. No enlarged cervical lymph nodes are identified. Partially visualized prominent mediastinal lymph nodes including a partially visualized subcarinal lymph node measuring at least 1.5 cm in short axis. Consider dedicated CT chest for further evaluation. Again seen fatty atrophy of the right aspect of the tongue . There is asymmetric prominence of the right side of the tongue base extending posteriorly. This is likely secondary to denervation. Superimposed mass is felt to be less likely. Recommend correlation with direct visualization as clinically indicated. Pt compliant with NMES. ST placed electrodes in the 3h position with Pt tolerating stim at a level 8.0mA. Pt participated in NMES in conjunction with PO trials and swallow exercises. Pt consumed 2 chan crackers and peanut butter, 4 oz of pudding, and ~4 oz of thin water via cup. He reports trouble swallowing turkey over the holidays and had to blend it with gravy. Pt was instructed to utilize effortful swallow with all swallows. For solids, Pt demonstrated adequate bite size and rate, prolonged ap transport, occasional audible swallow reflex. Pt with 1x cough reflex, which may be d/t chan crackers being crumbly . Pt with hoarse vocal quality prior to PO trials, however appears to be improved. Pt with occasional throat clearing throughout session. Pt reports he has to take small bites and it takes his a lot of time to consume food at home. Pt independently alternated liquids and solids and turned head to the right when swallowing liquid. For thin water via cup Pt with adequate suction, good oral acceptance and containment, slight increase in wet vocal quality and audible swallow reflex. Pt reports he continues to utilize head turn to the right when swallowing and doing his exercises at home. Pt reports no weight changes. Pt wanted to review swallow exercises to ensure he was completing them correctly . Pt demonstrated exercises with 100% accuracy. ST recommends Pt continue with HEP consisting of swallowing exercises 2-3x/day 10 reps each. Pt verbalized understanding. Recommendations Recommendations Continue Current Diet Liquids Order Thin (IDDSI 0) Diet Order Easy to Chew (IDDSI 7) Medication Recommendations As Tolerated,Whole in Carrier Additional Dietary Needs Single Sips Aspiration Precautions Recommended Precautions Right Head Turn,Liquids from Cup Treatment Plan Placement Recommendation after Discharge Home Appropriate for Continued Therapy Yes Dysphagia Goals STG1. Pt will complete MBSS for objective evaluation of swallow function. POC to be updated following MBSS. 12/09/23: MBSS completed. Please see report for results. STG2. Pt will benefit from education in strengthening exercises to rehabilitate facial/oral movement on right side of face and decrease facial/lingual paresis. - CONTINUE STG3. Pt will complete lingual /tongue base strengthening exercises with 80% accuracy independently in order to decrease s/sx oral phase dysphagia.- CONTINUE STG4. Patient will complete voice exercises (e.g., resonant voice, syllable warm- up, sustained phonation, and pitch glides) with 80% accuracy independently in order to increase adduction of right vocal fold and improve vocal quality. - CONTINUE- has not been addressed d/t therapy focusing on swallow. NEW GOAL STG 5: Pt will tolerate applications of NMES for improved swallow function as evidenced by increased toleration of least restrictive PO diet consistencies. LTG1. Pt will consume a diet of regular solids and thin liquids without s/sx aspiration in order to safely consume least restrictive diet and return to PLOF. LTG2. Pt will decrease R sided lingual strength/ROM deficits from moderate-severe deficits to mild deficits as measured via perceptual observation by SECURITY SYSTEMS INSTALLER. LTG3. Patient will improve self-perception of voice from a baseline of 05/08 following participation in [facility] services. Referrals/Other Recommended Referrals ENT Consult
--- NOTE | 2024-04-11 10:23 | ST.IPDYTX ---
Visit Care Team Role Provider Type Gurpreet Mckenzie DO Attending Provider Physician Family Provider Primary Care Provider Referring Provider Specialty: [facility] Address: [address] [place] [address], [facility] Email: ELECTRICAL MAINTENANCE ENGINEER Dysphagia Treatment ELECTRICAL MAINTENANCE ENGINEER Dysphagia Treatment Start: 11/25/23 11:18 Freq: Status: Active Protocol: Document 04/11/24 10:07 MA (Rec: 04/11/24 10:09 MA [id number]) Dysphagia Treatment Session Time Visit Start Time 09:45 Visit Stop Time 10:20 Total Visit Minutes 35 Visit Information Visit Number 27 Plan of Care Dates 01/21/24-04/22/23 Setting Assessment Location Outpatient Care Visit Type Note Type Treatment Note Next Note Type Next Note Type Treatment Note Patient Information Subjective Observations Pt arrived on time to his appointment and independently ambulated to the room. He was engaged and motivated throughout the session. Treatment Liquids Trialed Thin (IDDSI 0) Solids Trialed Purred (IDDSI 4),Regular ( IDDSI 7) Administration Type Straw Oral Strategies Upright at 90 degrees, Controlled Bite/Sip Size Pharyngeal Strategies Sitting Upright (90 deg),Turn Head Right,Effortful Swallow, Small Bites and Sips Treatment Activities NMES, PO trials and hyolaryngeal strengthening exercises- including effortful swallow, Aline maneuver, posterior lingual press, in order to rehabilitate BOT movement and facilitate increased airway closure during the swallow. The IDDSI Framework Protocol: IDDSI.1 Assessment Patient Response to Treatment Excellent Rehab Potential Good Assessment of Improvement Pt reutrned results from chest CT scan completed on 04/10/24 with the following impressions : Possible submucosal mass of the upper esophagus (at the thoracic inlet) measuring 1. 9x1.4cm. Pt reports he will have a f/u with his oncologist either today or tomorrow. Pt compliant with NMES. ST placed electrodes in the 3h position with Pt tolerating stim at a level 8.0mA. Pt participated in NMES in conjunction with PO trials and swallow exercises. Pt consumed 4 oz of diced peaches and 4 oz of pudding, and ~4 oz of thin water via straw. Pt was instructed to utilize effortful swallow with all swallows. For solids, Pt demonstrated adequate bite size and rate, prolonged ap transport, occasional audible swallow reflex. No coughing reflex noted with all PO trials. Pt with hoarse vocal quality prior to PO trials, however appears to be improved . Pt with occasional throat clearing throughout session. Pt reports he has to take small bites and it takes his a lot of time to consume food at home. Pt independently alternated liquids and solids and turned head to the right when swallowing liquid. For thin water via cup Pt with adequate suction, good oral acceptance and containment, slight increase in wet vocal quality and audible swallow reflex. Pt reports he continues to utilize head turn to the right when swallowing and doing his exercises at home. Pt reports no weight changes. ST recommends Pt continue with HEP consisting of swallowing exercises 2-3x/day 10 reps each. Pt verbalized understanding. Recommendations Recommendations Continue Current Diet Liquids Order Thin (IDDSI 0) Diet Order Easy to Chew (IDDSI 7) Medication Recommendations As Tolerated,Whole in Carrier Additional Dietary Needs Single Sips Aspiration Precautions Recommended Precautions Right Head Turn,Liquids from Cup Treatment Plan Placement Recommendation after Discharge Home Appropriate for Continued Therapy Yes Dysphagia Goals STG1. Pt will complete MBSS for objective evaluation of swallow function. POC to be updated following MBSS. 12/09/23: MBSS completed. Please see report for results. STG2. Pt will benefit from education in strengthening exercises to rehabilitate facial/oral movement on right side of face and decrease facial/lingual paresis. - CONTINUE STG3. Pt will complete lingual /tongue base strengthening exercises with 80% accuracy independently in order to decrease s/sx oral phase dysphagia.- CONTINUE STG4. Patient will complete voice exercises (e.g., resonant voice, syllable warm- up, sustained phonation, and pitch glides) with 80% accuracy independently in order to increase adduction of right vocal fold and improve vocal quality. - CONTINUE- has not been addressed d/t therapy focusing on swallow. NEW GOAL STG 5: Pt will tolerate applications of NMES for improved swallow function as evidenced by increased toleration of least restrictive PO diet consistencies. LTG1. Pt will consume a diet of regular solids and thin liquids without s/sx aspiration in order to safely consume least restrictive diet and return to PLOF. LTG2. Pt will decrease R sided lingual strength/ROM deficits from moderate-severe deficits to mild deficits as measured via perceptual observation by ELECTRICAL MAINTENANCE ENGINEER. LTG3. Patient will improve self-perception of voice from a baseline of 05/[address] skilled services. Referrals/Other Recommended Referrals ENT Consult
--- NOTE | 2024-04-13 10:22 | ST.IPDYTX ---
Visit Care Team Role Provider Type Gurpreet Mckenzie DO Attending Provider Physician Family Provider Primary Care Provider Referring Provider Specialty: [facility] Address: [address] [place] [address], [id number] Email: HOTEL CONTROLLER Dysphagia Treatment HOTEL CONTROLLER Dysphagia Treatment Start: 11/25/23 11:18 Freq: Status: Active Protocol: Document 04/13/24 10:15 MA (Rec: 04/13/24 10:17 MA [id number]) Dysphagia Treatment Session Time Visit Start Time 09:45 Visit Stop Time 10:20 Total Visit Minutes 35 Visit Information Visit Number [id number] Plan of Care Dates 01/21/24-04/22/23 Setting Assessment Location Outpatient Care Visit Type Note Type Treatment Note Next Note Type Next Note Type Treatment Note Patient Information Subjective Observations Pt arrived on time to his appointment and independently ambulated to the room. He was engaged and motivated throughout the session. Treatment Liquids Trialed Thin (IDDSI 0) Solids Trialed Purred (IDDSI 4),Regular ( IDDSI 7) Administration Type Straw Oral Strategies Upright at 90 degrees, Controlled Bite/Sip Size Pharyngeal Strategies Sitting Upright (90 deg),Turn Head Right,Effortful Swallow, Small Bites and Sips Treatment Activities NMES, PO trials and hyolaryngeal strengthening exercises- including effortful swallow, Aline maneuver, posterior lingual press, in order to rehabilitate BOT movement and facilitate increased airway closure during the swallow. The IDDSI Framework Protocol: IDDSI.1 Assessment Patient Response to Treatment Excellent Rehab Potential Good Assessment of Improvement Pt has a scheduled MBS this date to compare his swallow function from last MBS, which was 12/09/23 and to assess swallow after participating in swallow therapy. Pt with no questions in regards to MBS. 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 Pt compliant with NMES. ST placed electrodes in the 3h position with Pt tolerating stim at a level 8.0mA. Pt participated in NMES in conjunction with PO trials and swallow exercises. Pt consumed 4 oz of diced peaches and 4 oz of pudding, and ~4 oz of thin water via straw. Pt was instructed to utilize effortful swallow with all swallows. For solids, Pt demonstrated adequate bite size and rate, prolonged ap transport, occasional audible swallow reflex. No coughing reflex noted with all PO trials. Pt with hoarse vocal quality prior to PO trials, however appears to be improved . Pt with occasional throat clearing throughout session. Pt reports he has to take small bites and it takes his a lot of time to consume food at home. Pt independently alternated liquids and solids and turned head to the right when swallowing liquid. For thin water via cup Pt with adequate suction, good oral acceptance and containment, slight increase in wet vocal quality and audible swallow reflex. Pt reports he continues to utilize head turn to the right when swallowing and doing his exercises at home. Pt reports no weight changes. ST recommends Pt continue with HEP consisting of swallowing exercises 2-3x/day 10 reps each. Pt verbalized understanding. Recommendations Recommendations Continue Current Diet Liquids Order Thin (IDDSI 0) Diet Order Easy to Chew (IDDSI 7) Medication Recommendations As Tolerated,Whole in Carrier Additional Dietary Needs Single Sips Aspiration Precautions Recommended Precautions Right Head Turn,Liquids from Cup Treatment Plan Placement Recommendation after Discharge Home Appropriate for Continued Therapy Yes Dysphagia Goals STG1. Pt will complete MBSS for objective evaluation of swallow function. POC to be updated following MBSS. 12/09/23: MBSS completed. Please see report for results. STG2. Pt will benefit from education in strengthening exercises to rehabilitate facial/oral movement on right side of face and decrease facial/lingual paresis. - CONTINUE STG3. Pt will complete lingual /tongue base strengthening exercises with 80% accuracy independently in order to decrease s/sx oral phase dysphagia.- CONTINUE STG4. Patient will complete voice exercises (e.g., resonant voice, syllable warm- up, sustained phonation, and pitch glides) with 80% accuracy independently in order to increase adduction of right vocal fold and improve vocal quality. - CONTINUE- has not been addressed d/t therapy focusing on swallow. NEW GOAL STG 5: Pt will tolerate applications of NMES for improved swallow function as evidenced by increased toleration of least restrictive PO diet consistencies. LTG1. Pt will consume a diet of regular solids and thin liquids without s/sx aspiration in order to safely consume least restrictive diet and return to PLOF. LTG2. Pt will decrease R sided lingual strength/ROM deficits from moderate-severe deficits to mild deficits as measured via perceptual observation by HOTEL CONTROLLER. LTG3. Patient will improve self-perception of voice from a baseline of 05/08 following participation in skilled services.
--- NOTE | 2024-04-18 10:04 | ST.IPDYTX ---
Visit Care Team Role Provider Type Gurpreet Mckenzie DO Attending Provider Physician Family Provider Primary Care Provider Referring Provider Specialty: [facility] Address: [address] [place] [address], [id number] Email: SENIOR LINUX SYSTEMS ADMINISTRATOR Dysphagia Treatment SENIOR LINUX SYSTEMS ADMINISTRATOR Dysphagia Treatment Start: 11/25/23 11:18 Freq: Status: Active Protocol: Document 04/18/24 09:59 MA (Rec: 04/18/24 10:04 MA [id number]) Dysphagia Treatment Session Time Visit Start Time 09:45 Visit Stop Time 10:20 Total Visit Minutes 35 Visit Information Visit Number 29 Plan of Care Dates 04/23/24-07/22/24 Setting Assessment Location Outpatient Care Visit Type Note Type Treatment Note Next Note Type Next Note Type Treatment Note Patient Information Subjective Observations Pt arrived on time to his appointment and independently ambulated to the room. He was engaged and motivated throughout the session. Treatment Liquids Trialed Thin (IDDSI 0) Solids Trialed Purred (IDDSI 4),Regular ( IDDSI 7) Administration Type Straw Oral Strategies Upright at 90 degrees, Controlled Bite/Sip Size Pharyngeal Strategies Sitting Upright (90 deg),Turn Head Right,Effortful Swallow, Small Bites and Sips Treatment Activities NMES, PO trials and hyolaryngeal strengthening exercises- including effortful swallow, Aline maneuver, posterior lingual press, in order to rehabilitate BOT movement and facilitate increased airway closure during the swallow. The IDDSI Framework Protocol: IDDSI.1 Assessment Patient Response to Treatment Excellent Rehab Potential Good Assessment of Improvement Pt reports he saw an oncologist yesterday and will be having several tests going forward for the mass in his esophagus, as well as for lymph gland in his lungs and swelling/mass in his back. Pt compliant with NMES. ST placed electrodes in the 3h position with Pt tolerating stim at a level 8.0mA. Pt participated in NMES in conjunction with PO trials and swallow exercises. Pt consumed 4 oz of diced peaches and 4 oz of pudding, and ~4 oz of thin water via straw. Pt was instructed to utilize effortful swallow with all swallows. For solids, Pt demonstrated adequate bite size and rate, prolonged ap transport, occasional audible swallow reflex. No coughing reflex noted with all PO trials. Pt with hoarse vocal quality prior to PO trials, however appears to be improved . Pt with occasional throat clearing throughout session. Pt reports he has to take small bites and it takes his a lot of time to consume food at home. Pt independently alternated liquids and solids and turned head to the right when swallowing liquid. For thin water via cup Pt with adequate suction, good oral acceptance and containment, slight increase in wet vocal quality and audible swallow reflex. Pt reports he continues to utilize head turn to the right when swallowing and doing his exercises at home. Pt reports no weight changes. ST recommends Pt continue with HEP consisting of swallowing exercises 2-3x/day 10 reps each. Pt verbalized understanding. Recommendations Recommendations Continue Current Diet Liquids Order Thin (IDDSI 0) Diet Order Easy to Chew (IDDSI 7) Medication Recommendations As Tolerated,Whole in Carrier Comments No change in diet recomended at this time Additional Dietary Needs Single Sips,Reminders to Use Strategies Aspiration Precautions Recommended Precautions Right Head Turn,Liquids from Cup Treatment Plan Placement Recommendation after Discharge Home Appropriate for Continued Therapy Yes Dysphagia Goals STG1. Pt will complete MBSS for objective evaluation of swallow function. POC to be updated following MBSS. 12/09/23: MBSS completed. Please see report for results. STG2. Pt will benefit from education in strengthening exercises to rehabilitate facial/oral movement on right side of face and decrease facial/lingual paresis. - CONTINUE STG3. Pt will complete lingual /tongue base strengthening exercises with 80% accuracy independently in order to decrease s/sx oral phase dysphagia.- CONTINUE STG4. Patient will complete voice exercises (e.g., resonant voice, syllable warm- up, sustained phonation, and pitch glides) with 80% accuracy independently in order to increase adduction of right vocal fold and improve vocal quality. - CONTINUE- has not been addressed d/t therapy focusing on swallow. NEW GOAL STG 5: Pt will tolerate applications of NMES for improved swallow function as evidenced by increased toleration of least restrictive PO diet consistencies. LTG1. Pt will consume a diet of regular solids and thin liquids without s/sx aspiration in order to safely consume least restrictive diet and return to PLOF. LTG2. Pt will decrease R sided lingual strength/ROM deficits from moderate-severe deficits to mild deficits as measured via perceptual observation by SENIOR LINUX SYSTEMS ADMINISTRATOR. LTG3. Patient will improve self-perception of voice from a baseline of 05/08 following participation in skilled services. Referrals/Other Recommended Referrals ENT Consult
--- NOTE | 2024-04-18 10:04 | ST.OPPOC ---
Physical, Occupational & Speech Therapy At [facility] Visit Care Team Role Provider Type Gurpreet Mckenzie DO Attending Provider Physician Family Provider Primary Care Provider Referring Provider Address: [address] [place] [address], [id number] Speech Pathology Plan of Care Plan of Care Dates 04/23/24-07/22/[address] 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 Pt reports that his symptoms all started with first bite syndrome, in which he would have a sharp pain in the parotid region of his face upon taking his first bite of food. This progressed to the pt having difficulty swallowing solids and his speech becoming gradually more slurred. This all started around 2022. Pt was diagnosed with head and neck cancer and doctors recommended removing lymph nodes on his right side. Pt did not want to pursue this and instead pursued proton therapy. He just finished his last round of proton therapy on October 07. Camron is currently experiencing paresis of the right side of his tongue, drooping of his right eye, and numbness on right side of the tongue. He is currently on a full liquid diet as he is not able to start trialing swallowing solids for about another week due to his recent proton therapy. He has unintentionally lost 35 lbs since his cancer symptoms began. Pt also complains that his voice is hoarse and lower pitch, with vocal symptoms feeling worse first thing in the morning. He also demonstrates inhalatory stridor at rest. The pt complains that pills tend to get stuck in his throat when swallowing. He has tried crushing his medications in the past and he believes they are all crushable, but he doesn't prefer to crush them due to hassle and taste. He also states that liquids feel like they tend to get stuck in the throat a little bit, but ultimately he is able to swallow them. He feels this may be due to a swelling in the throat/ esophagus due to inflammation from the proton therapy. He complains of excessive saliva and phlegm in his throat, though he is not sure if this is due to increased intake of dairy with soft food diet. Pt stated he does not have any history of reflux or asthma. He does not have a known history of aspiration pneumonia. He also has a history of abdominal aortic aneurysm. Camron is retired and lives at home with his . He feels that his symptoms have a mild impact on his ability to function in the community and engage in interpersonal communication, but his is supportive. 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 He states that his goals for speech therapy are to get back to normal and eat solid foods again, as well as strengthen his voice again. Therapy Recommendations Continue to follow patient throughout hospital stay. Planned to d/c 08/12/19. Solid Recommendations Regular Recommended Precautions Right Head Turn,Liquids from Cup Recommended Referrals ENT Consult Short-term Goals 1. Pt will complete MBSS for objective evaluation of swallow function. POC to be updated following MBSS. 2. Pt will benefit from education in strengthening exercises to rehabilitate facial/ oral movement on right side of face and decrease facial/lingual paresis. 3. Pt will complete lingual/tongue base strengthening exercises with 80% accuracy independently in order to decrease s/sx oral phase dysphagia. Long-term Goals Pt will consume a diet of regular solids and thin liquids without s/sx aspiration in order to safely consume least restrictive diet and return to PLOF. Pt will decrease R sided lingual strength/ROM deficits from moderate-severe deficits to mild deficits as measured via perceptual observation by BRIMMING MACHINE OPERATOR. Comment: Electronically Signed by: BLANKA Molina 04/18/24 1005 If you are in agreement with this Plan of Care, please return a signed and dated copy. I have reviewed this Plan of Care and certify that the skilled therapy services above are required to meet the patient?s needs. Physician Signature Date Printed Name and Credentials Clinical Instructor Signature Printed Name and Credentials
--- NOTE | 2024-04-18 10:12 | ST.IPDYTX ---
Visit Care Team Role Provider Type Gurpreet Mckenzie DO Attending Provider Physician Family Provider Primary Care Provider Referring Provider Specialty: Family Practice Address: [address] [place] [address], [id number] Email: L D RN Dysphagia Treatment L D RN Dysphagia Treatment Start: 11/25/23 11:18 Freq: Status: Active Protocol: Document 04/18/24 09:59 MA (Rec: 04/18/24 10:04 MA [id number]) Dysphagia Treatment Session Time Visit Start Time 09:45 Visit Stop Time 10:20 Total Visit Minutes 35 Visit Information Visit Number 29 Plan of Care Dates 04/23/24-07/22/24 Setting Assessment Location Outpatient Care Visit Type Note Type Treatment Note Next Note Type Next Note Type Treatment Note Patient Information Subjective Observations Pt arrived on time to his appointment and independently ambulated to the room. He was engaged and motivated throughout the session. Treatment Liquids Trialed Thin (IDDSI 0) Solids Trialed Purred (IDDSI 4),Regular ( IDDSI 7) Administration Type Straw Oral Strategies Upright at 90 degrees, Controlled Bite/Sip Size Pharyngeal Strategies Sitting Upright (90 deg),Turn Head Right,Effortful Swallow, Small Bites and Sips Treatment Activities NMES, PO trials and hyolaryngeal strengthening exercises- including effortful swallow, Aline maneuver, posterior lingual press, in order to rehabilitate BOT movement and facilitate increased airway closure during the swallow. The IDDSI Framework Protocol: IDDSI.1 Assessment Patient Response to Treatment Excellent Rehab Potential Good Assessment of Improvement Pt reports he saw an oncologist yesterday and will be having several tests going forward for the mass in his esophagus, as well as for lymph gland in his lungs and swelling/mass in his back. ST reviewed most recent MBS completed, which indicated: * Mild oral phase dysphagia continues but oral structures and function appear to have improved with EMS therapy. Moderate to severe pharyngeal phase dysphagia continues. 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 Continued ST/swallow therapy and EMS therapy is recommended Pt compliant with NMES. ST placed electrodes in the 3h position with Pt tolerating stim at a level 8.0mA. Pt participated in NMES in conjunction with PO trials and swallow exercises. Pt consumed 4 oz of diced peaches and 4 oz of pudding, and ~4 oz of thin water via straw. Pt was instructed to utilize effortful swallow with all swallows. For solids, Pt demonstrated adequate bite size and rate, prolonged ap transport, occasional audible swallow reflex. No coughing reflex noted with all PO trials. Pt with hoarse vocal quality prior to PO trials, however appears to be improved . Pt with occasional throat clearing throughout session. Pt reports he has to take small bites and it takes his a lot of time to consume food at home. Pt independently alternated liquids and solids and turned head to the right when swallowing liquid. For thin water via cup Pt with adequate suction, good oral acceptance and containment, slight increase in wet vocal quality and audible swallow reflex. Pt reports he continues to utilize head turn to the right when swallowing and doing his exercises at home. Pt reports [address] educated Pt on super supraglottic swallow strategy and provided a handout and recommended Pt complete at home. ST recommends Pt continue with HEP consisting of swallowing exercises 2-3x/day 10 reps each. Pt verbalized understanding. Recommendations Recommendations Continue Current Diet Liquids Order Thin (IDDSI 0) Diet Order Easy to Chew (IDDSI 7) Medication Recommendations As Tolerated,Whole in Carrier Comments No change in diet recomended at this time Additional Dietary Needs Single Sips,Reminders to Use Strategies Aspiration Precautions Recommended Precautions Right Head Turn,Liquids from Cup Treatment Plan Placement Recommendation after Discharge Home Appropriate for Continued Therapy Yes Dysphagia Goals STG1. Pt will complete MBSS for objective evaluation of swallow function. POC to be updated following MBSS. 12/09/23: MBSS completed. Please see report for results. STG2. Pt will benefit from education in strengthening exercises to rehabilitate facial/oral movement on right side of face and decrease facial/lingual paresis. - CONTINUE STG3. Pt will complete lingual /tongue base strengthening exercises with 80% accuracy independently in order to decrease s/sx oral phase dysphagia.- CONTINUE STG4. Patient will complete voice exercises (e.g., resonant voice, syllable warm- up, sustained phonation, and pitch glides) with 80% accuracy independently in order to increase adduction of right vocal fold and improve vocal quality. - CONTINUE- has not been addressed d/t therapy focusing on swallow. NEW GOAL STG 5: Pt will tolerate applications of NMES for improved swallow function as evidenced by increased toleration of least restrictive PO diet consistencies. LTG1. Pt will consume a diet of regular solids and thin liquids without s/sx aspiration in order to safely consume least restrictive diet and return to PLOF. LTG2. Pt will decrease R sided lingual strength/ROM deficits from moderate-severe deficits to mild deficits as measured via perceptual observation by L D RN. LTG3. Patient will improve self-perception of voice from a baseline of 05/08 following participation in [facility] services. Referrals/Other Recommended Referrals ENT Consult
--- NOTE | 2024-04-21 10:15 | ST.PROG ---
Visit Care Team Role Provider Type Gurpreet Mckenzie DO Attending Provider Physician Family Provider Primary Care Provider Referring Provider Address: [address] [place] [address], [id number] Visit Care Team Role Provider Type Gurpreet Mckenzie DO Attending Provider Physician Family Provider Primary Care Provider Referring Provider Specialty: Family Practice Address: [address] [place] [address], [id number] Email: WANT AD RECEIVER Dysphagia Treatment WANT AD RECEIVER Dysphagia Treatment Start: 11/25/23 11:18 Freq: Status: Active Protocol: Document 04/21/24 09:55 MA (Rec: 04/21/24 09:57 MA [id number]) Dysphagia Treatment Session Time Visit Start Time 09:45 Visit Stop Time 10:20 Total Visit Minutes 35 Visit Information Visit Number 30 Plan of Care Dates 04/23/24-07/22/24 Setting Assessment Location Outpatient Care Visit Type Note Type Treatment Note Next Note Type Next Note Type Treatment Note Patient Information Subjective Observations Pt arrived on time to his appointment and independently ambulated to the room. He was engaged and motivated throughout the session. He reports he has a consult today in regards to an endoscopy for the mass in his throat. Treatment Liquids Trialed Thin (IDDSI 0) Solids Trialed Purred (IDDSI 4),Regular ( IDDSI 7) Administration Type Straw Oral Strategies Upright at 90 degrees, Controlled Bite/Sip Size Pharyngeal Strategies Sitting Upright (90 deg),Turn Head Right,Effortful Swallow, Small Bites and Sips Treatment Activities NMES, PO trials and hyolaryngeal strengthening exercises- including effortful swallow, Aline maneuver, posterior lingual press, in order to rehabilitate BOT movement and facilitate increased airway closure during the swallow. The IDDSI Framework Protocol: IDDSI.1 Assessment Patient Response to Treatment Excellent Rehab Potential Good Assessment of Improvement Pt reports he saw an oncologist yesterday and will be having several tests going forward for the mass in his esophagus, as well as for lymph gland in his lungs and swelling/mass in his back. ST reviewed most recent MBS completed, which indicated: * Mild oral phase dysphagia continues but oral structures and function appear to have improved with EMS therapy. Moderate to severe pharyngeal phase dysphagia continues. 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 Continued ST/swallow therapy and EMS therapy is recommended Pt compliant with NMES. ST placed electrodes in the 3h position with Pt tolerating stim at a level 8.0mA. Pt participated in NMES in conjunction with PO trials and swallow exercises. Pt consumed 4 oz of diced peaches and 4 oz of pudding, and ~4 oz of thin water via straw. Pt was instructed to utilize effortful swallow with all swallows. For solids, Pt demonstrated adequate bite size and rate, prolonged ap transport, occasional audible swallow reflex. No coughing reflex noted with all PO trials. Pt with hoarse vocal quality prior to PO trials, however appears to be improved . Pt with occasional throat clearing throughout session. Pt reports he has to take small bites and it takes his a lot of time to consume food at home. Pt independently alternated liquids and solids and turned head to the right when swallowing liquid. For thin water via cup Pt with adequate suction, good oral acceptance and containment, slight increase in wet vocal quality and audible swallow reflex. Pt reports he continues to utilize head turn to the right when swallowing and doing his exercises at home. Pt reports [address] educated Pt on super supraglottic swallow strategy and provided a handout and recommended Pt complete at home. ST recommends Pt continue with HEP consisting of swallowing exercises 2-3x/day 10 reps each. Pt verbalized understanding. Recommendations Recommendations Continue Current Diet Liquids Order Thin (IDDSI 0) Diet Order Easy to Chew (IDDSI 7) Medication Recommendations As Tolerated Additional Dietary Needs Single Sips,Reminders to Use Strategies Aspiration Precautions Recommended Precautions Right Head Turn,Liquids from Cup Treatment Plan Appropriate for Continued Therapy Yes Dysphagia Goals STG1. Pt will complete MBSS for objective evaluation of swallow function. POC to be updated following MBSS. 12/09/23: MBSS completed. Please see report for results. STG2. Pt will benefit from education in strengthening exercises to rehabilitate facial/oral movement on right side of face and decrease facial/lingual paresis. - CONTINUE STG3. Pt will complete lingual /tongue base strengthening exercises with 80% accuracy independently in order to decrease s/sx oral phase dysphagia.- CONTINUE STG4. Patient will complete voice exercises (e.g., resonant voice, syllable warm- up, sustained phonation, and pitch glides) with 80% accuracy independently in order to increase adduction of right vocal fold and improve vocal quality. - CONTINUE- has not been addressed d/t therapy focusing on swallow. NEW GOAL STG 5: Pt will tolerate applications of NMES for improved swallow function as evidenced by increased toleration of least restrictive PO diet consistencies. LTG1. Pt will consume a diet of regular solids and thin liquids without s/sx aspiration in order to safely consume least restrictive diet and return to PLOF. LTG2. Pt will decrease R sided lingual strength/ROM deficits from moderate-severe deficits to mild deficits as measured via perceptual observation by WANT AD RECEIVER. LTG3. Patient will improve self-perception of voice from a baseline of 05/08 following participation in [facility].
--- NOTE | 2024-04-25 10:11 | ST.IPDYTX ---
Visit Care Team Role Provider Type Gurpreet Mckenzie DO Attending Provider Physician Family Provider Primary Care Provider Referring Provider Specialty: [facility] Practice Address: [address] [place] [address], [id number] Email: FISCAL AGENT Dysphagia Treatment FISCAL AGENT Dysphagia Treatment Start: 11/25/23 11:18 Freq: Status: Active Protocol: Document 04/25/24 10:08 MA (Rec: 04/25/24 10:11 MA [id number]) Dysphagia Treatment Session Time Visit Start Time 09:45 Visit Stop Time 10:20 Total Visit Minutes 35 Visit Information Visit Number 31 Plan of Care Dates 04/23/24-07/22/24 Setting Assessment Location Outpatient Care Visit Type Note Type Treatment Note Next Note Type Next Note Type Treatment Note Patient Information Subjective Observations Pt arrived on time to his appointment and independently ambulated to the room. He was engaged and motivated throughout the session. He reports he has a spinal tap scheduled tomorrow. Treatment Liquids Trialed Thin (IDDSI 0) Solids Trialed Purred (IDDSI 4),Regular ( IDDSI 7) Administration Type Straw Oral Strategies Upright at 90 degrees, Controlled Bite/Sip Size Pharyngeal Strategies Sitting Upright (90 deg),Turn Head Right,Effortful Swallow, Small Bites and Sips Treatment Activities NMES, PO trials and hyolaryngeal strengthening exercises- including effortful swallow, Aline maneuver, posterior lingual press, in order to rehabilitate BOT movement and facilitate increased airway closure during the swallow. The IDDSI Framework Protocol: IDDSI.1 Assessment Patient Response to Treatment Excellent Rehab Potential Good Assessment of Improvement Pt compliant with NMES. ST placed electrodes in the 3h position with Pt tolerating stim at a level 8.0mA. Pt participated in NMES in conjunction with PO trials and swallow exercises. Pt consumed 4 oz of diced peaches and 4 oz of pudding, and ~4 oz of thin water via straw. Pt was instructed to utilize effortful swallow with all swallows. For solids, Pt demonstrated adequate bite size and rate, prolonged ap transport, occasional audible swallow reflex. No coughing reflex noted with all PO trials. Pt with hoarse vocal quality prior to PO trials, however appears to be improved . Pt with occasional throat clearing throughout session. Pt reports he has to take small bites and it takes his a lot of time to consume food at home. Pt independently alternated liquids and solids and turned head to the right when swallowing liquid. For thin water via cup Pt with adequate suction, good oral acceptance and containment, slight increase in wet vocal quality and audible swallow reflex. Pt reports he continues to utilize head turn to the right when swallowing and doing his exercises at home. Pt reports [address] educated Pt on super supraglottic swallow strategy and provided a handout and recommended Pt complete at home. ST recommends Pt continue with HEP consisting of swallowing exercises 2-3x/day 10 reps each. Pt verbalized understanding. Recommendations Recommendations Continue Current Diet Liquids Order Thin (IDDSI 0) Diet Order Easy to Chew (IDDSI 7) Medication Recommendations As Tolerated Comments No change in diet recomended at this time Additional Dietary Needs Single Sips,Reminders to Use Strategies Aspiration Precautions Recommended Precautions Right Head Turn,Liquids from Cup Treatment Plan Placement Recommendation after Discharge Home Appropriate for Continued Therapy Yes Dysphagia Goals STG1. Pt will complete MBSS for objective evaluation of swallow function. POC to be updated following MBSS. 12/09/23: MBSS completed. Please see report for results. STG2. Pt will benefit from education in strengthening exercises to rehabilitate facial/oral movement on right side of face and decrease facial/lingual paresis. - CONTINUE STG3. Pt will complete lingual /tongue base strengthening exercises with 80% accuracy independently in order to decrease s/sx oral phase dysphagia.- CONTINUE STG4. Patient will complete voice exercises (e.g., resonant voice, syllable warm- up, sustained phonation, and pitch glides) with 80% accuracy independently in order to increase adduction of right vocal fold and improve vocal quality. - CONTINUE- has not been addressed d/t therapy focusing on swallow. NEW GOAL STG 5: Pt will tolerate applications of NMES for improved swallow function as evidenced by increased toleration of least restrictive PO diet consistencies. LTG1. Pt will consume a diet of regular solids and thin liquids without s/sx aspiration in order to safely consume least restrictive diet and return to PLOF. LTG2. Pt will decrease R sided lingual strength/ROM deficits from moderate-severe deficits to mild deficits as measured via perceptual observation by FISCAL AGENT. LTG3. Patient will improve self-perception of voice from a baseline of 05/08 following participation in skilled services. Referrals/Other Recommended Referrals ENT Consult
--- NOTE | 2024-05-05 08:54 | ST.IPDYTX ---
Visit Care Team Role Provider Type Gurpreet Mckenzie DO Attending Provider Physician Family Provider Primary Care Provider Referring Provider Specialty: Family Practice Address: [address] [place] [address], [id number] Email: ELECTRICIAN SUBSTATION Dysphagia Treatment ELECTRICIAN SUBSTATION Dysphagia Treatment Start: 11/25/23 11:18 Freq: Status: Active Protocol: Document 05/05/24 08:27 MA (Rec: 05/05/24 08:37 MA [id number]) Dysphagia Treatment Session Time Visit Start Time 08:15 Visit Stop Time 08:50 Total Visit Minutes 35 Visit Information Visit Number 32 Plan of Care Dates 04/23/24-07/22/24 Setting Assessment Location Outpatient Care Visit Type Note Type Treatment Note Next Note Type Next Note Type Treatment Note Patient Information Subjective Observations Pt arrived on time to his appointment and independently ambulated to the room. He was engaged and motivated throughout the session. Pt reports he had an attempted endoscopy of the mass in his throat, however reports he could not be done d/t the mass pressing against his esophagus causing the esophagus to be too narrow for the endoscopy tube. 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 Pt reports he has more testing next , 05/11/24. Treatment Liquids Trialed Thin (IDDSI 0) Solids Trialed Purred (IDDSI 4),Regular ( IDDSI 7) Administration Type Straw Oral Strategies Upright at 90 degrees, Controlled Bite/Sip Size Pharyngeal Strategies Sitting Upright (90 deg),Turn Head Right,Effortful Swallow, Small Bites and Sips Treatment Activities NMES, PO trials and hyolaryngeal strengthening exercises- including effortful swallow, Aline maneuver, posterior lingual press, in order to rehabilitate BOT movement and facilitate increased airway closure during the swallow. The IDDSI Framework Protocol: IDDSI.1 Assessment Patient Response to Treatment Excellent Rehab Potential Good Assessment of Improvement Pt compliant with NMES. ST placed electrodes in the 3h position with Pt tolerating stim at a level 8.0mA. Pt participated in NMES in conjunction with PO trials and swallow exercises. Pt consumed 1/4th of a donut and ~4 oz of thin water via straw. Pt was instructed to utilize effortful swallow with all swallows. For solids, Pt demonstrated small bite size and rate, prolonged ap transport, occasional audible swallow reflex. No coughing reflex noted with all PO trials. Pt with hoarse vocal quality prior to PO trials, however appears to be improved . Pt with occasional throat clearing throughout session. Pt reports he has to take small bites and it takes his a lot of time to consume food at home. Pt independently alternated liquids and solids and turned head to the right when swallowing liquid. For thin water via cup Pt with adequate suction, good oral acceptance and containment, slight increase in wet vocal quality and audible swallow reflex. Pt reports he continues to utilize head turn to the right when swallowing and doing his exercises at home. Pt reports [address] recommends Pt continue with HEP consisting of swallowing exercises 2-3x/day 10 reps each. Pt verbalized understanding. Recommendations Recommendations Continue Current Diet Liquids Order Thin (IDDSI 0) Diet Order Easy to Chew (IDDSI 7) Medication Recommendations As Tolerated Additional Dietary Needs Single Sips,Reminders to Use Strategies Aspiration Precautions Recommended Precautions Right Head Turn,Liquids from Cup Treatment Plan Placement Recommendation after Discharge Home Appropriate for Continued Therapy Yes Dysphagia Goals STG1. Pt will complete MBSS for objective evaluation of swallow function. POC to be updated following MBSS. 12/09/23: MBSS completed. Please see report for results. STG2. Pt will benefit from education in strengthening exercises to rehabilitate facial/oral movement on right side of face and decrease facial/lingual paresis. - CONTINUE STG3. Pt will complete lingual /tongue base strengthening exercises with 80% accuracy independently in order to decrease s/sx oral phase dysphagia.- CONTINUE STG4. Patient will complete voice exercises (e.g., resonant voice, syllable warm- up, sustained phonation, and pitch glides) with 80% accuracy independently in order to increase adduction of right vocal fold and improve vocal quality. - CONTINUE- has not been addressed d/t therapy focusing on swallow. NEW GOAL STG 5: Pt will tolerate applications of NMES for improved swallow function as evidenced by increased toleration of least restrictive PO diet consistencies. LTG1. Pt will consume a diet of regular solids and thin liquids without s/sx aspiration in order to safely consume least restrictive diet and return to PLOF. LTG2. Pt will decrease R sided lingual strength/ROM deficits from moderate-severe deficits to mild deficits as measured via perceptual observation by ELECTRICIAN SUBSTATION. LTG3. Patient will improve self-perception of voice from a baseline of 05/08 following participation in [facility] services. Referrals/Other Recommended Referrals ENT Consult
--- NOTE | 2024-05-09 10:25 | ST.IPDYTX ---
Visit Care Team Role Provider Type Gurpreet Mckenzie DO Attending Provider Physician Family Provider Primary Care Provider Referring Provider Specialty: Family Practice Address: [address] [place] [address], [id number] Email: VENEER REPAIRER MACHINE Dysphagia Treatment VENEER REPAIRER MACHINE Dysphagia Treatment Start: 11/25/23 11:18 Freq: Status: Active Protocol: Document 05/09/24 09:56 MA (Rec: 05/09/24 09:58 MA [id number]) Dysphagia Treatment Session Time Visit Start Time 09:45 Visit Stop Time 10:20 Total Visit Minutes 35 Visit Information Visit Number 33 Plan of Care Dates 04/23/24-07/22/24 Setting Assessment Location Outpatient Care Visit Type Note Type Treatment Note Next Note Type Next Note Type Treatment Note Patient Information Subjective Observations Pt arrived on time to his appointment and independently ambulated to the room. He was engaged and motivated throughout the session. Pt reports he had an attempted endoscopy of the mass in his throat, however reports he could not be done d/t the mass pressing against his esophagus causing the esophagus to be too narrow for the endoscopy tube. 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 Pt reports he has more testing next , 05/11/24. Treatment Liquids Trialed Thin (IDDSI 0) Solids Trialed Purred (IDDSI 4) Administration Type Straw Oral Strategies Upright at 90 degrees, Controlled Bite/Sip Size Pharyngeal Strategies Sitting Upright (90 deg),Turn Head Right,Effortful Swallow, Small Bites and Sips Treatment Activities NMES, PO trials and hyolaryngeal strengthening exercises- including effortful swallow, Aline maneuver, posterior lingual press, in order to rehabilitate BOT movement and facilitate increased airway closure during the swallow. The IDDSI Framework Protocol: IDDSI.1 Assessment Patient Response to Treatment Excellent Rehab Potential Good Assessment of Improvement NMES not adminsitered d/t Pt with potential active cancer in his throat. As stated in previous treatment note, Pt went to have a biopsy of the mass in his throat, however endoscopy tube could not fit into Pt's esophagus d/t mass pressing against esophagus preventing the biospy from happening. As a precaution, ST communicated plan to d/c NMES at this time until it is determined if he has active throat cancer of not. Pt reports he has several tests being completed this coming , 05/12, and will hopefully have results by our next appointment on 05/16. He states he will be have a CT scan, PET scan and pulmonary test. ST assessed swallow function with therapeutic PO trials of puree solids and thin liquids via straw. Pt consumed 4 oz of pudding via tsp and about 6 oz of thin water via straw. Pt independently turned head to the right while swallowing thin water. Pt exhibited no overt s/s of aspiration with all PO trials, specifically coughing or choking. ST cued Pt to utilize effortful swallow with all swallows. He required occasional double swallows to clear residue. He reports continued weight loss of about 10 pounds. Pt also completed 10 reps of super- supraglottic swallow. ST recommends Pt continue with HEP consisting of swallowing exercises 2-3x/day 10 reps each. Pt verbalized understanding. Recommendations Recommendations Continue Current Diet Liquids Order Thin (IDDSI 0) Diet Order Easy to Chew (IDDSI 7) Medication Recommendations As Tolerated Additional Dietary Needs Single Sips Aspiration Precautions Recommended Precautions Right Head Turn Treatment Plan Placement Recommendation after Discharge Home Appropriate for Continued Therapy Yes Dysphagia Goals STG1. Pt will complete MBSS for objective evaluation of swallow function. POC to be updated following MBSS. 12/09/23: MBSS completed. Please see report for results. STG2. Pt will benefit from education in strengthening exercises to rehabilitate facial/oral movement on right side of face and decrease facial/lingual paresis. - CONTINUE STG3. Pt will complete lingual /tongue base strengthening exercises with 80% accuracy independently in order to decrease s/sx oral phase dysphagia.- CONTINUE STG4. Patient will complete voice exercises (e.g., resonant voice, syllable warm- up, sustained phonation, and pitch glides) with 80% accuracy independently in order to increase adduction of right vocal fold and improve vocal quality. - CONTINUE- has not been addressed d/t therapy focusing on swallow. NEW GOAL STG 5: Pt will tolerate applications of NMES for improved swallow function as evidenced by increased toleration of least restrictive PO diet consistencies. LTG1. Pt will consume a diet of regular solids and thin liquids without s/sx aspiration in order to safely consume least restrictive diet and return to PLOF. LTG2. Pt will decrease R sided lingual strength/ROM deficits from moderate-severe deficits to mild deficits as measured via perceptual observation by VENEER REPAIRER MACHINE. LTG3. Patient will improve self-perception of voice from a baseline of 05/08 following participation in [facility] services. Referrals/Other Recommended Referrals ENT Consult
--- NOTE | 2024-05-16 11:24 | ST.IPDYTX ---
Visit Care Team Role Provider Type Gurpreet Mckenzie DO Attending Provider Physician Family Provider Primary Care Provider Referring Provider Specialty: Family Practice Address: [address] [place] [address], [id number] Email: SECONDARY SPANISH TEACHER Dysphagia Treatment SECONDARY SPANISH TEACHER Dysphagia Treatment Start: 11/25/23 11:18 Freq: Status: Active Protocol: Document 05/16/24 11:19 MA (Rec: 05/16/24 11:24 MA [id number]) Dysphagia Treatment Session Time Visit Start Time 10:45 Visit Stop Time 11:16 Total Visit Minutes 31 Visit Information Visit Number 34 Plan of Care Dates 04/23/24-07/22/24 Setting Assessment Location Outpatient Care Visit Type Note Type Treatment Note Next Note Type Next Note Type Treatment Note Patient Information Subjective Observations Pt arrived on time to his appointment and independently ambulated to the room, however utilized a cane this date with reports of back pain. He states he had a PET scan last , 05/11/24, which revealed scant amounts of metastatic cancer. He reports they still cannot do a biopsy for mass in throat. He reports the oncologist is suspecting Pt will have to undergo chemo/ radiation, however will be meeting with aboard of oncologists next Wednesday, to discuss a treatment plan for the Pt. ST recommended the next 2 appointments be cancelled and wait to follow up until after he hears back about his treatment plan going forward. Pt verbalized understanding. Treatment Liquids Trialed Thin (IDDSI 0) Solids Trialed Purred (IDDSI 4) Oral Strategies Upright at 90 degrees, Controlled Bite/Sip Size Pharyngeal Strategies Sitting Upright (90 deg),Turn Head Right,Effortful Swallow, Small Bites and Sips Treatment Activities PO trials and hyolaryngeal strengthening exercises- including effortful swallow, Aline maneuver, posterior lingual press, in order to rehabilitate BOT movement and facilitate increased airway closure during the swallow. The IDDSI Framework Protocol: IDDSI.1 Assessment Patient Response to Treatment Excellent Rehab Potential Good Assessment of Improvement NMES not adminsitered d/t Pt with potential active cancer in his throat. As a precaution , ST communicated plan to d/c NMES at this time. ST assessed swallow function with therapeutic PO trials of puree solids and thin liquids via straw. Pt consumed 4 oz of pudding via tsp and about 6 oz of thin water via straw. Pt independently turned head to the right while swallowing thin water. Pt exhibited no overt s/s of aspiration with all PO trials, specifically coughing or choking. ST cued Pt to utilize effortful swallow with all swallows. He required occasional double swallows to clear residue. He reports his weight loss has stopped and he has actually gained 7 pounds this past week . Pt also completed 10 reps of super-supraglottic swallow. ST recommends Pt continue with HEP consisting of swallowing exercises 2-3x/day 10 reps each. Pt verbalized understanding. Recommendations Recommendations Continue Current Diet Liquids Order Thin (IDDSI 0) Diet Order Easy to Chew (IDDSI 7) Medication Recommendations As Tolerated Additional Dietary Needs Single Sips Aspiration Precautions Recommended Precautions Right Head Turn Treatment Plan Placement Recommendation after Discharge Home Appropriate for Continued Therapy Yes Dysphagia Goals STG1. Pt will complete MBSS for objective evaluation of swallow function. POC to be updated following MBSS. 12/09/23: MBSS completed. Please see report for results. STG2. Pt will benefit from education in strengthening exercises to rehabilitate facial/oral movement on right side of face and decrease facial/lingual paresis. - CONTINUE STG3. Pt will complete lingual /tongue base strengthening exercises with 80% accuracy independently in order to decrease s/sx oral phase dysphagia.- CONTINUE STG4. Patient will complete voice exercises (e.g., resonant voice, syllable warm- up, sustained phonation, and pitch glides) with 80% accuracy independently in order to increase adduction of right vocal fold and improve vocal quality. - CONTINUE- has not been addressed d/t therapy focusing on swallow. NEW GOAL STG 5: Pt will tolerate applications of NMES for improved swallow function as evidenced by increased toleration of least restrictive PO diet consistencies. LTG1. Pt will consume a diet of regular solids and thin liquids without s/sx aspiration in order to safely consume least restrictive diet and return to PLOF. LTG2. Pt will decrease R sided lingual strength/ROM deficits from moderate-severe deficits to mild deficits as measured via perceptual observation by SECONDARY SPANISH TEACHER. LTG3. Patient will improve self-perception of voice from a baseline of 05/08 following participation in skilled services. Referrals/Other Recommended Referrals ENT Consult
--- NOTE | 2024-05-24 11:43 | ST.IPDYTX ---
Visit Care Team Role Provider Type Gurpreet Mckenzie DO Attending Provider Physician Family Provider Primary Care Provider Referring Provider Specialty: Family Practice Address: [address] [place] [address], [id number] Email: PUBLIC SPEAKER Dysphagia Treatment PUBLIC SPEAKER Dysphagia Treatment Start: 11/25/23 11:18 Freq: Status: Active Protocol: Document 05/24/24 11:26 MA (Rec: 05/24/24 11:42 MA [id number]) Dysphagia Treatment Session Time Visit Start Time 10:45 Visit Stop Time 11:15 Total Visit Minutes 30 Visit Information Visit Number 35 Plan of Care Dates 04/23/24-07/22/24 Setting Assessment Location Outpatient Care Visit Type Note Type Treatment Note Next Note Type Next Note Type Treatment Note Patient Information Subjective Observations Pt arrived on time to his appointment and independently ambulated to the room, however utilized a cane this date with reports of back pain. He states he had a PET scan last , 05/11/24, which revealed scant amounts of metastatic cancer. He reports they still cannot do a biopsy for mass in throat. He reports the oncologist is suspecting Pt will have to undergo chemo/ radiation, however will be meeting with aboard of oncologists next Wednesday, to discuss a treatment plan for the Pt. ST recommended the next 2 appointments be cancelled and wait to follow up until after he hears back about his treatment plan going forward. Pt verbalized understanding. Treatment Liquids Trialed Thin (IDDSI 0) Oral Strategies Upright at 90 degrees, Controlled Bite/Sip Size Pharyngeal Strategies Sitting Upright (90 deg),Turn Head Right,Effortful Swallow, Small Bites and Sips Treatment Activities PO trials of thin liquids via cup with use of safe swallowing strategies The IDDSI Framework Protocol: IDDSI.1 Assessment Patient Response to Treatment Excellent Rehab Potential Good Assessment of Improvement NMES not adminsitered d/t Pt with potential active cancer in his throat. As a precaution , ST communicated plan to d/c NMES at this time. ST assessed swallow function with therapeutic PO trials of thin liquids via cup. Pt consumed about 6 oz of thin water. Pt independently turned head to the right while swallowing thin water. Pt exhibited no overt s/s of aspiration with all PO trials, specifically coughing or choking. ST cued Pt to utilize effortful swallow with all swallows. He required occasional double swallows to clear residue. Pt also completed 10 reps of super- supraglottic swallow. ST recommends Pt continue with HEP consisting of swallowing exercises 2-3x/day 10 reps each. Pt verbalized understanding. ST facilitated conversation in regards to going forward with treatment d/t Pt most likely having to have chemo/radiation done. He had a 2 ports placed yesterday for treatment. ST recommended Pt come in once a month for the next two months as follow ups and to continue therapy depending on how chemo /radiation goes. Pt verbalized understanding. Recommendations Recommendations Continue Current Diet Liquids Order Thin (IDDSI 0) Diet Order Easy to Chew (IDDSI 7) Medication Recommendations As Tolerated Additional Dietary Needs Single Sips Aspiration Precautions Recommended Precautions Right Head Turn Treatment Plan Placement Recommendation after Discharge Home Appropriate for Continued Therapy Yes Dysphagia Goals STG1. Pt will complete MBSS for objective evaluation of swallow function. POC to be updated following MBSS. 12/09/23: MBSS completed. Please see report for results. STG2. Pt will benefit from education in strengthening exercises to rehabilitate facial/oral movement on right side of face and decrease facial/lingual paresis. - CONTINUE STG3. Pt will complete lingual /tongue base strengthening exercises with 80% accuracy independently in order to decrease s/sx oral phase dysphagia.- CONTINUE STG4. Patient will complete voice exercises (e.g., resonant voice, syllable warm- up, sustained phonation, and pitch glides) with 80% accuracy independently in order to increase adduction of right vocal fold and improve vocal quality. - CONTINUE- has not been addressed d/t therapy focusing on swallow. NEW GOAL STG 5: Pt will tolerate applications of NMES for improved swallow function as evidenced by increased toleration of least restrictive PO diet consistencies. LTG1. Pt will consume a diet of regular solids and thin liquids without s/sx aspiration in order to safely consume least restrictive diet and return to PLOF. LTG2. Pt will decrease R sided lingual strength/ROM deficits from moderate-severe deficits to mild deficits as measured via perceptual observation by PUBLIC SPEAKER. LTG3. Patient will improve self-perception of voice from a baseline of 10 following participation in skilled services. Referrals/Other Recommended Referrals ENT Consult
--- NOTE | 2024-06-21 15:59 | ST.OPDS ---
Visit Care Team Role Provider Type Gurpreet Mckenzie DO Attending Provider Physician Family Provider Primary Care Provider Referring Provider Address: [address] [place] [address], [id number] ST recommends Pt be discharged from at this time d/t Pt reporting he may have to go on hospice d/t cancer spreading and has a PEG placed at this time.
== END 2024-06-29 09:41 | disposition home or self-care (01) ==
LOC: SP 10:45
PROVIDERS: Family Provider Family Medicine; PCP Family Medicine; Referring Provider Family Medicine; Visit Provider Family Medicine
DX: C44.42 Squamous cell carcinoma of skin of scalp and neck (principal); E86.0 Dehydration; G50.0 Trigeminal neuralgia
CPT/HCPCS: 92507; 92526; 92610